=== PATIENT | female | born 1960 | race Caucasian/White ===

== ENCOUNTER 2019-12-13 07:41 | Outpatient (REF) | payer BC, SELFPAY ==
[2019-12-13 08:17] LABS: MANUAL DIFF FLAG NO
[2019-12-13 08:19] LABS: Basophils Percent Auto 0.2 % (0-2); Eosinophils Absolute Auto 0.1 X10*3/uL (0.0-0.4); Hemoglobin 13.3 g/dl (12.0-16.0); Imm Gran Abs Auto 0.03 X10*3/uL (0.00-0.03); Imm Gran Pct Auto 0.4 % (0.0-0.4); Lymphocytes Absolute Auto 0.9 X10*3/uL (1.2-4.9); Lymphocytes Percent Auto 10.5 % (20-40); Mean Corpuscular HGB Conc 33.3 g/dl (31.0-35.0); Mean Corpuscular Hemoglobin 32.5 pg (27.0-33.0); Mean Corpuscular Volume 97.8 fL (80-98); Mean Platelet Volume 9.7 fL (9.4-12.3); Monocytes Absolute Auto 0.7 X10*3/uL (0.1-1.2); Monocytes Percent Auto 8.2 % (2-11); Neutrophils Absolute Auto 6.5 X10*3/uL (2.0-8.3); Neutrophils Percent Auto 79.7 % (45-73); Platelet Count 314 X10*3/uL (160-400); Red Blood Count 4.09 X10*6/uL (4.20-5.50); Red Cell Distribution Width 13.1 % (11.0-16.0); White Blood Count 8.1 X10*3/uL (4.8-10.8)
[2019-12-13 09:00] LABS: Alanine Aminotransferase 21 U/L (0-31); Albumin Level 4.3 g/dL (3.5-5.0); Alkaline Phosphatase 68 U/L (39-117); Anion Gap 15 (12-20); Aspartate Amino Transferase 18 U/L (5-31); Bilirubin Total < 0.2 mg/dL (0.0-1.0); Blood Urea Nitrogen 30 mg/dL (9-16); C Reactive Protein 0.19 mg/dL (< or = 0.50); Calcium 8.9 mg/dL (8.4-10.2); Carbon Dioxide 19 mmol/L (22-29); Chloride 109 mmol/L (96-108); Estimated Glomerular Filt Rate 35; Glucose Fasting 222 mg/dL (60-99); Potassium 5.4 mmol/l (3.3-5.1); Sodium 138 mmol/L (135-145); Total Protein 6.4 g/dL (6.5-8.0)
[2019-12-13 09:09] LABS: Erythrocyte Sedimentation Rate 5 MM/HR (0-20)
== END 2019-12-13 07:42 | disposition home or self-care (01) ==
LOC: HO.LABR 07:41
PROVIDERS: Visit Provider Internal Medicine Rheumatology
DX: Z79.899 Other long term (current) drug therapy (principal)
CPT/HCPCS: 36415; 80053; 85025; 85652; 86140

== ENCOUNTER 2019-12-17 08:48 | Outpatient (REF) | payer BC, SELFPAY ==
[2019-12-17 09:09] LABS: COVID-19 Test Negative (Negative)
== END 2019-12-17 08:49 | disposition home or self-care (01) ==
LOC: HO.LAB 08:48
PROVIDERS: Visit Provider Internal Medicine
DX: Z20.828 Contact with and (suspected) exposure to other viral communicable diseases (principal)
CPT/HCPCS: 87635; C9803

== ENCOUNTER 2020-01-31 14:27 | Outpatient (REF) | payer BC, SELFPAY ==
--- NOTE | 2020-01-31 | US_ITS ---
EXAMINATION: US RETROPERITONEAL COMPLETE (RENAL) CLINICAL INFORMATION: Hematuria. Chronic kidney disease. COMPARISON: CT abdomen and pelvis 05/18/2018. TECHNIQUE: Real-time imaging of the kidneys and bladder. FINDINGS: RIGHT KIDNEY: 9.6 x 3.8 x 4.3 cm (SAG x AP x TRV). The kidney is normal in size, contour, and echogenicity. Renal cortical thickness is normal. No calculi or focal parenchymal lesions. No hydronephrosis. LEFT KIDNEY: 9.5 x 4.2 x 4.8 cm (SAG x AP x TRV). The kidney is normal in size, contour, and echogenicity. Renal cortical thickness is normal. No focal parenchymal lesions or hydronephrosis. There is an echogenic stone upper pole medially measuring 0.6 x 0.5 x 0.5 cm. BLADDER: Partially distended. Bilateral ureteral jets are demonstrated. Prevoid bladder volume is 169 mL. Postvoid bladder volume is 17 mL. US/US retroperitoneal comp IMPRESSION: Small echogenic stone medially in upper pole measuring 0.6 x 0.5 x 0.5 cm but no caliectasis or hydronephrosis. Unremarkable right kidney. Normal bilateral ureteral jets with a small postvoid bladder volume of 17 mL.
== END 2020-01-31 14:28 | disposition home or self-care (01) ==
LOC: HO.US 14:27
PROVIDERS: Visit Provider Internal Medicine Nephrology
DX: N18.32 Chronic kidney disease, stage 3b (principal); R31.9 Hematuria, unspecified
CPT/HCPCS: 76770

== ENCOUNTER 2020-02-03 09:03 | Outpatient (REF) | payer BC, OTHER, SELFPAY ==
[2020-02-03 09:44] LABS: COVID-19 Test Negative (Negative)
== END 2020-02-03 09:04 | disposition home or self-care (01) ==
LOC: HO.EMPCOV 09:03
PROVIDERS: Visit Provider Internal Medicine
DX: Z20.828 Contact with and (suspected) exposure to other viral communicable diseases (principal)
CPT/HCPCS: 87635; C9803

== ENCOUNTER 2020-04-05 07:56 | Outpatient (REF) | payer BC, SELFPAY ==
[2020-04-05 12:58] LABS: MANUAL DIFF FLAG NO
[2020-04-05 13:02] LABS: Basophils Percent Auto 0.3 % (0-2); Eosinophils Absolute Auto 0.1 X10*3/uL (0.0-0.4); Eosinophils Percent Auto 1.5 % (0-4); Hematocrit 40.1 % (37-47); Hemoglobin 13.5 g/dl (12.0-16.0); Imm Gran Abs Auto 0.02 X10*3/uL (0.00-0.03); Imm Gran Pct Auto 0.3 % (0.0-0.4); Lymphocytes Absolute Auto 0.9 X10*3/uL (1.2-4.9); Lymphocytes Percent Auto 13.6 % (20-40); Mean Corpuscular HGB Conc 33.7 g/dl (31.0-35.0); Mean Corpuscular Hemoglobin 31.5 pg (27.0-33.0); Mean Corpuscular Volume 93.7 fL (80-98); Mean Platelet Volume 10.4 fL (9.4-12.3); Monocytes Absolute Auto 0.9 X10*3/uL (0.1-1.2); Neutrophils Absolute Auto 4.8 X10*3/uL (2.0-8.3); Neutrophils Percent Auto 71.3 % (45-73); Platelet Count 325 X10*3/uL (160-400); Red Blood Count 4.28 X10*6/uL (4.20-5.50); Red Cell Distribution Width 13.2 % (11.0-16.0); White Blood Count 6.8 X10*3/uL (4.8-10.8)
[2020-04-05 13:39] LABS: Anion Gap 15 (12-20); Blood Urea Nitrogen 18 mg/dL (9-16); Calcium 9.8 mg/dL (8.4-10.2); Carbon Dioxide 24 mmol/L (22-29); Chloride 106 mmol/L (96-108); Estimated Glomerular Filt Rate 52; Glucose Random 105 mg/dL (60-115); Magnesium 1.7 mg/dL (1.6-2.6); Potassium 4.4 mmol/L (3.3-5.1); Sodium 141 mmol/L (135-145)
[2020-04-05 13:41] LABS: Alanine Aminotransferase 26 U/L (0-31); Albumin Level 4.7 g/dL (3.5-5.0); Aspartate Amino Transferase 20 U/L (5-31); C Reactive Protein 0.42 mg/dL (< or = 0.50); Estimated Glomerular Filt Rate 52
[2020-04-05 13:48] LABS: Erythrocyte Sedimentation Rate 7 MM/HR (0-20)
[2020-04-07 12:07] LABS: PTHI 40 pg/mL (14-64)
== END 2020-04-05 07:57 | disposition home or self-care (01) ==
LOC: HO.LAB 07:56
PROVIDERS: Referring Provider Internal Medicine Nephrology; Visit Provider Internal Medicine Rheumatology
DX: N18.30 Chronic kidney disease, stage 3 unspecified (principal); E83.9 Disorder of mineral metabolism, unspecified; M89.9 Disorder of bone, unspecified; Z79.899 Other long term (current) drug therapy
CPT/HCPCS: 36415; 80048; 82040; 82565; 83735; 83970; 84100; 84450; 84460; 85025; 85652; 86140

== ENCOUNTER 2020-04-07 08:36 | Outpatient (REF) | payer OTHER, SELFPAY ==
[2020-04-07 08:52] LABS: COVID-19 Test Negative (Negative)
== END 2020-04-07 08:37 | disposition home or self-care (01) ==
LOC: HO.EMPCOV 08:36
PROVIDERS: Visit Provider Internal Medicine
DX: Z20.822 Contact with and (suspected) exposure to COVID-19 (principal)
CPT/HCPCS: 36415; 87635; C9803

== ENCOUNTER 2020-05-09 07:51 | Outpatient (REF) | payer BC, SELFPAY ==
--- NOTE | ~2020-05-09 | XR_ITS ---
EXAMINATION: XR SHOULDER, RIGHT CLINICAL INFORMATION: Pain COMPARISON: None TECHNIQUE: AP external rotation, Grashey, scapular Y, and axillary views of the right shoulder. FINDINGS: The bones and soft tissues are normal. No fracture. Glenohumeral and acromioclavicular alignment is anatomic with normal joint space. No abnormal soft tissue calcifications. XR/XR shoulder RT min 2V IMPRESSION: Normal right shoulder.
[2020-05-09 13:14] LABS: Anion Gap 18 (12-20); Blood Urea Nitrogen 24 mg/dL (9-16); Calcium 9.6 mg/dL (8.4-10.2); Carbon Dioxide 21 mmol/L (22-29); Chloride 106 mmol/L (96-108); Estimated Glomerular Filt Rate 49; Glucose Random 92 mg/dL (60-115); Potassium 4.9 mmol/L (3.3-5.1); Sodium 140 mmol/L (135-145)
== END 2020-05-09 07:52 | disposition home or self-care (01) ==
LOC: HO.LAB 07:51
PROVIDERS: Visit Provider Internal Medicine
DX: I10 Essential (primary) hypertension (principal); M25.511 Pain in right shoulder
CPT/HCPCS: 36415; 73030; 80048

== ENCOUNTER 2020-07-28 07:46 | Outpatient (REF) | payer BC, SELFPAY ==
[2020-07-28 09:14] LABS: MANUAL DIFF FLAG NO
[2020-07-28 09:19] LABS: Basophils Percent Auto 0.3 % (0-2); Eosinophils Absolute Auto 0.1 X10*3/uL (0.0-0.4); Hematocrit 42.4 % (37-47); Hemoglobin 13.9 g/dl (12.0-16.0); Imm Gran Abs Auto 0.01 X10*3/uL (0.00-0.03); Imm Gran Pct Auto 0.2 % (0.0-0.4); Lymphocytes Absolute Auto 0.8 X10*3/uL (1.2-4.9); Lymphocytes Percent Auto 13.6 % (20-40); Mean Corpuscular HGB Conc 32.8 g/dl (31.0-35.0); Mean Corpuscular Hemoglobin 30.8 pg (27.0-33.0); Mean Corpuscular Volume 93.8 fL (80-98); Mean Platelet Volume 10.3 fL (9.4-12.3); Monocytes Absolute Auto 0.6 X10*3/uL (0.1-1.2); Monocytes Percent Auto 10.5 % (2-11); Neutrophils Absolute Auto 4.3 X10*3/uL (2.0-8.3); Neutrophils Percent Auto 73.4 % (45-73); Platelet Count 287 X10*3/uL (160-400); Red Blood Count 4.52 X10*6/uL (4.20-5.50); Red Cell Distribution Width 14.2 % (11.0-16.0); White Blood Count 5.9 X10*3/uL (4.8-10.8)
[2020-07-28 09:29] LABS: Estimated Average Glucose 137 mg/dL; Hemoglobin A1c % 6.4 %
[2020-07-28 09:39] LABS: Alanine Aminotransferase 21 U/L (0-31); Aspartate Amino Transferase 18 U/L (5-31); Estimated Glomerular Filt Rate 48
[2020-07-28 09:45] LABS: Alanine Aminotransferase 22 U/L (0-31); Albumin Level 4.3 g/dL (3.5-5.0); Alkaline Phosphatase 75 U/L (39-117); Anion Gap 15 (12-20); Aspartate Amino Transferase 18 U/L (5-31); Bilirubin Total 0.4 mg/dL (0.0-1.0); Blood Urea Nitrogen 27 mg/dL (9-16); Calcium 8.9 mg/dL (8.4-10.2); Carbon Dioxide 20 mmol/L (22-29); Chloride 110 mmol/L (96-108); Cholesterol 162 mg/dL; Estimated Glomerular Filt Rate 47; Glucose Random 158 mg/dL (60-115); HDL Cholesterol 91 mg/dL; LDL Cholesterol Calculated 60 mg/dl; Potassium 5.2 mmol/L (3.3-5.1); Sodium 140 mmol/L (135-145); Total Protein 6.5 g/dL (6.5-8.0); Triglycerides 56 mg/dL; Uric Acid 8.1 mg/dL (2.4-5.7)
[2020-07-28 09:52] LABS: Creatinine Urine 88.07 mg/dL; Microalbum/Creatinine Ratio Ur 37.4 ug/mg cr
[2020-07-28 10:06] LABS: Erythrocyte Sedimentation Rate 6 MM/HR (0-20)
[2020-07-28 10:08] LABS: Free T4 (Free Thyroxine) 1.25 ng/dL (0.71-1.85); Thyroid Stimulating Hormone 0.03 uIU/mL (0.32-4.0); Vitamin D 25-OH Total 32.2 ng/mL (>30)
[2020-07-28 10:15] LABS: Vitamin B12 184 pg/mL (200-900)
[2020-08-02 04:42] LABS: Protein C Activity 126 % (70-180)
== END 2020-07-28 07:47 | disposition home or self-care (01) ==
LOC: HO.LAB 07:46
PROVIDERS: Absent Provider Internal Medicine; PCP Internal Medicine; Visit Provider Internal Medicine Rheumatology
DX: M05.79 Rheumatoid arthritis with rheumatoid factor of multiple sites without organ or systems involvement (principal); E11.65 Type 2 diabetes mellitus with hyperglycemia; E89.0 Postprocedural hypothyroidism; E78.00 Pure hypercholesterolemia, unspecified; I10 Essential (primary) hypertension; Z79.899 Other long term (current) drug therapy
CPT/HCPCS: 36415; 80053; 80061; 82043; 82306; 82565; 82607; 82746; 83036; 84439; 84443; 84450; 84460; 84550; 85025; 85302; 85303; 85652

== ENCOUNTER 2020-08-01 07:56 | Outpatient (REF) | payer BC, SELFPAY ==
--- NOTE | ~2020-08-01 | MM_ITS ---
EXAMINATION: MM SCREENING DIGITAL BREAST TOMOSYNTHESIS, BILATERAL CLINICAL INFORMATION: Screening. Asymptomatic. The lifetime risk of breast cancer based on the Tyrer-Cuzick Model is 10%. COMPARISON: Mammography: 12/07/2018, 11/27/2017, 05/15/2016 TECHNIQUE: Digital breast tomosynthesis is performed in both the craniocaudal and mediolateral oblique views along with computer-aided detection (CAD). Synthesized 2D images are generated from the tomosynthesis. Additional left CC view is provided. FINDINGS: There are scattered areas of fibroglandular density (ACR BI-RADS breast composition Category b). Parenchymal pattern is similar to prior studies with no developing density or interval mass or architectural abnormality. There are again 2 small nodules mid upper outer left breast similar to prior exam. Intramammary node again present posterior 3:00 left breast. There are scattered round and ductal secretory calcifications, bilaterally and symmetrically increased. The axilla and skin contours are unremarkable. MM/MM tomosynthesis screening BI IMPRESSION: No significant changes from prior studies. ASSESSMENT: BI-RADS 2: Benign RECOMMENDATION: Routine annual mammography screening. This patient's information was entered into a reminder system with a target due date for their next mammogram.
== END 2020-08-01 07:57 | disposition home or self-care (01) ==
LOC: HO.MAMMO 07:56
PROVIDERS: PCP Internal Medicine; Visit Provider Internal Medicine
DX: Z12.31 Encounter for screening mammogram for malignant neoplasm of breast (principal)
CPT/HCPCS: 77063; 77067

== ENCOUNTER 2020-12-01 06:46 | Outpatient (REF) | payer BC, SELFPAY ==
[2020-12-01 07:04] LABS: MANUAL DIFF FLAG NO
[2020-12-01 07:33] LABS: Basophils Percent Auto 0.3 % (0-2); Eosinophils Absolute Auto 0.1 X10*3/uL (0.0-0.4); Eosinophils Percent Auto 1.1 % (0-4); Hematocrit 42.8 % (37-47); Hemoglobin 14.3 g/dl (12.0-16.0); Imm Gran Abs Auto 0.02 X10*3/uL (0.00-0.03); Imm Gran Pct Auto 0.3 % (0.0-0.4); Lymphocytes Absolute Auto 0.9 X10*3/uL (1.2-4.9); Lymphocytes Percent Auto 13.9 % (20-40); Mean Corpuscular HGB Conc 33.4 g/dl (31.0-35.0); Mean Corpuscular Volume 92.6 fL (80-98); Mean Platelet Volume 9.9 fL (9.4-12.3); Monocytes Absolute Auto 0.6 X10*3/uL (0.1-1.2); Monocytes Percent Auto 8.6 % (2-11); Neutrophils Absolute Auto 4.9 X10*3/uL (2.0-8.3); Neutrophils Percent Auto 75.8 % (45-73); Platelet Count 270 X10*3/uL (160-400); Red Blood Count 4.62 X10*6/uL (4.20-5.50); Red Cell Distribution Width 13.6 % (11.0-16.0); White Blood Count 6.4 X10*3/uL (4.8-10.8)
[2020-12-01 07:44] LABS: Alanine Aminotransferase 18 U/L (0-31); Albumin Level 4.4 g/dL (3.5-5.0); Alkaline Phosphatase 73 U/L (39-117); Anion Gap 13 (12-20); Aspartate Amino Transferase 17 U/L (5-31); Bilirubin Total 0.5 mg/dL (0.0-1.0); Blood Urea Nitrogen 21 mg/dL (9-16); C Reactive Protein 0.34 mg/dL (< or = 0.50); Calcium 11.2 mg/dL (8.4-10.2); Carbon Dioxide 27 mmol/L (22-29); Chloride 106 mmol/L (96-108); Estimated Glomerular Filt Rate 39; Glucose Random 157 mg/dL (60-115); Sodium 141 mmol/L (135-145); Total Protein 6.7 g/dL (6.5-8.0)
[2020-12-01 07:45] LABS: Estimated Average Glucose 151 mg/dL; Hemoglobin A1c % 6.9 %
[2020-12-01 08:01] LABS: Free T4 (Free Thyroxine) 1.46 ng/dL (0.71-1.85)
[2020-12-01 08:02] LABS: Thyroid Stimulating Hormone 0.15 uIU/mL (0.32-4.0)
[2020-12-01 08:18] LABS: Folate 18.2 ng/mL (> or = 4.0); Vitamin B12 962 pg/mL (200-900)
[2020-12-01 08:22] LABS: Erythrocyte Sedimentation Rate 5 MM/HR (0-20)
[2020-12-01 12:57] LABS: Creatinine Urine 23.55 mg/dL
== END 2020-12-01 06:47 | disposition home or self-care (01) ==
LOC: HO.LAB 06:46
PROVIDERS: Absent Provider Internal Medicine Rheumatology; PCP Internal Medicine; Visit Provider Internal Medicine
DX: E11.65 Type 2 diabetes mellitus with hyperglycemia (principal); N18.31 Chronic kidney disease, stage 3a; E11.22 Type 2 diabetes mellitus with diabetic chronic kidney disease; M05.79 Rheumatoid arthritis with rheumatoid factor of multiple sites without organ or systems involvement; Z79.899 Other long term (current) drug therapy
CPT/HCPCS: 36415; 80053; 82607; 82746; 83036; 84439; 84443; 85025; 85652; 86140

== ENCOUNTER → 2021-02-15 10:20 | Outpatient (BNVA) | payer BC, SELFPAY | PROVIDERS: PCP Internal Medicine; Visit Provider Dietitian, Registered | DX: E11.22 Type 2 diabetes mellitus with diabetic chronic kidney disease (principal); I12.9 Hypertensive chronic kidney disease with stage 1 through stage 4 chronic kidney disease, or unspecified chronic kidney disease; N18.30 Chronic kidney disease, stage 3 unspecified | CPT/HCPCS: 97802 ==

== ENCOUNTER 2021-03-08 07:30 | Outpatient (REF) | payer BC, SELFPAY ==
[2021-03-08 08:00] LABS: MANUAL DIFF FLAG NO
[2021-03-08 08:07] LABS: Basophils Percent Auto 0.3 % (0-2); Eosinophils Absolute Auto 0.1 X10*3/uL (0.0-0.4); Eosinophils Percent Auto 1.5 % (0-4); Hematocrit 41.2 % (37.0-47.0); Hemoglobin 13.9 g/dl (12.0-16.0); Imm Gran Abs Auto 0.01 X10*3/uL (0.00-0.03); Imm Gran Pct Auto 0.2 % (0.0-0.4); Lymphocytes Percent Auto 15.2 % (20-40); Mean Corpuscular HGB Conc 33.7 g/dl (31.0-35.0); Mean Corpuscular Volume 94.7 fL (80.0-98.0); Mean Platelet Volume 9.7 fL (9.4-12.3); Monocytes Absolute Auto 0.6 X10*3/uL (0.1-1.2); Monocytes Percent Auto 8.8 % (2-11); Neutrophils Absolute Auto 4.9 x10*3/uL (2.0-8.3); Platelet Count 279 X10*3/uL (160-400); Red Blood Count 4.35 X10*6/uL (4.20-5.50); Red Cell Distribution Width 13.8 % (11.0-16.0); White Blood Count 6.6 X10*3/uL (4.8-10.8)
[2021-03-08 08:27] LABS: Alkaline Phosphatase 81 U/L (39-117); Calcium 9.8 mg/dL (8.4-10.2); Phosphorus 4.3 mg/dL (2.7-4.5)
[2021-03-08 08:30] LABS: Alanine Aminotransferase 27 U/L (0-31); Albumin Level 4.3 g/dL (3.5-5.0); Aspartate Amino Transferase 21 U/L (5-31); C Reactive Protein 0.23 mg/dL (< or = 0.50); Estimated Glomerular Filt Rate 37
[2021-03-08 08:44] LABS: Erythrocyte Sedimentation Rate 3 MM/HR (0-20)
[2021-03-08 08:51] LABS: Thyroid Stimulating Hormone 5.77 uIU/mL (0.32-4.0)
[2021-03-09 14:07] LABS: Calcium (PTHI) 9.7 mg/dL (8.6-10.4); PTHI 31 pg/mL (14-64)
== END 2021-03-08 07:31 | disposition home or self-care (01) ==
LOC: HO.LAB 07:30
PROVIDERS: Absent Provider Internal Medicine Rheumatology; PCP Internal Medicine; Visit Provider Internal Medicine Endocrinology, Diabetes & Metabolism
DX: N18.31 Chronic kidney disease, stage 3a (principal); M05.79 Rheumatoid arthritis with rheumatoid factor of multiple sites without organ or systems involvement; E83.52 Hypercalcemia; E89.0 Postprocedural hypothyroidism; Z79.899 Other long term (current) drug therapy
CPT/HCPCS: 36415; 82040; 82306; 82310; 82565; 83970; 84075; 84100; 84443; 84450; 84460; 85025; 85652; 86140

== ENCOUNTER → 2021-04-12 09:28 | Outpatient (BNVA) | payer BC, SELFPAY | PROVIDERS: PCP Internal Medicine; Visit Provider Dietitian, Registered | DX: E11.65 Type 2 diabetes mellitus with hyperglycemia (principal) | CPT/HCPCS: 97803 ==

== ENCOUNTER 2021-05-04 08:08 | Outpatient (REF) | payer BC, SELFPAY ==
--- NOTE | ~2021-05-04 | MM_ITS ---
EXAMINATION: BONE DENSITOMETRY CLINICAL INDICATION: Encounter for screening for osteoporosis. COMPARISON: Baseline BD dated 02/11/2019. TECHNIQUE: Using a [employer] DXA System (software version: 13.1) manufactured by [employer], dual-energy x-ray absorptiometry was performed of the lumbar spine and left hip. The images are of good technical quality. Summary results are attached. FINDINGS: AP SPINE L1-L2 (excluding L3 and L4): The data of L1-L4 has been changed to exclude the L3 and L4 vertebral bodies, because degenerative sclerosis at these levels may cause overestimation of lumbar spine density. Current: BMD 1.157 g/cm2, Z-score 0.6, T-score -0.1, normal, 0.6% increase from baseline (<5% change is not significant). Baseline: BMD 1.150 g/cm2. LEFT FEMUR, NECK: Current: BMD 0.857 g/cm2, Z-score -0.4, T-score -1.3, osteopenia. Baseline: BMD 0.865 g/cm2. LEFT FEMUR, TOTAL: Current: BMD 0.928 g/cm2, Z-score -0.1, T-score -0.6, normal, 0.3% increase from baseline (<5% change is not significant). Baseline: BMD 0.925 g/cm2. IDENTIFIED RISK FACTORS: History of adult fracture. Rheumatoid arthritis. Renal disease. Parental hip fracture. Menopause. HISTORY OF FRACTURE: Wrist. MEDICATIONS: Calcium supplement and/or multivitamin. Vitamin D. MM/XR DEXA axial skeleton IMPRESSION: 1. DIAGNOSIS: Osteopenia based on the lowest T-score value of -1.3 in the femoral neck applying World Health Organization criteria. 2. 10-YEAR FRACTURE RISK PREDICTION, FRAX: Major osteoporotic fracture (clinical spine, forearm, hip or shoulder) 30.4%. Hip fracture 1.5%. 3. Treatment Recommendations: NOF guidelines recommend consideration for treatment in postmenopausal women and men age 50 and older presenting with the following: -A hip or vertebral (clinical or morphometric) fracture. -T-score less than or equal to -2.5 at the femoral neck or spine after appropriate evaluation to exclude secondary causes. -Low bone mass at the hip or spine and a 10-year fracture probability by FRAX of greater than or equal to 3% for hip fracture or greater than or equal to 20% for major osteoporotic fracture based on the [place] adapted WHO algorithm. 4. Other Recommendations: All treatment decisions require clinical judgment and consideration of individual patient factors, including patient preferences, comorbidities, previous drug use, risk factors not captured in the FRAX model (e.g. frailty, falls, vitamin D deficiency, increased bone turnover, interval significant decline in bone density) and possible under or overestimation of fracture risk by FRAX. Additional medical evaluation for secondary cause of low bone mineral density may be appropriate. FUTURE SCAN RECOMMENDATION: People with diagnosed cases of osteoporosis or at high risk for fracture should have regular bone mineral density tests. For patients eligible for Medicare, routine testing is allowed once every 2 years. The testing frequency can be increased to one year for patients who have rapidly progressing disease, those who are receiving or discontinuing medical therapy to restore bone mass, or have additional risk factors.
== END 2021-05-04 08:09 | disposition home or self-care (01) ==
LOC: HO.MAMMO 08:08
PROVIDERS: PCP Internal Medicine; Visit Provider Internal Medicine
DX: Z13.820 Encounter for screening for osteoporosis (principal); M85.80 Other specified disorders of bone density and structure, unspecified site; Z78.0 Asymptomatic menopausal state; M06.9 Rheumatoid arthritis, unspecified; N28.9 Disorder of kidney and ureter, unspecified
CPT/HCPCS: 77080

== ENCOUNTER 2021-06-15 07:35 | Outpatient (REF) | payer BC, SELFPAY ==
[2021-06-15 07:51] LABS: MANUAL DIFF FLAG NO
[2021-06-15 08:19] LABS: Basophils Percent Auto 0.3 % (0-2); Eosinophils Absolute Auto 0.1 X10*3/uL (0.0-0.4); Hematocrit 39.8 % (37.0-47.0); Hemoglobin 13.2 g/dl (12.0-16.0); Imm Gran Abs Auto 0.03 X10*3/uL (0.00-0.03); Imm Gran Pct Auto 0.5 % (0.0-0.4); Lymphocytes Absolute Auto 0.8 X10*3/uL (1.2-4.9); Lymphocytes Percent Auto 12.2 % (20-40); Mean Corpuscular HGB Conc 33.2 g/dl (31.0-35.0); Mean Corpuscular Hemoglobin 32.1 pg (27.0-33.0); Mean Corpuscular Volume 96.8 fL (80.0-98.0); Mean Platelet Volume 9.9 fL (9.4-12.3); Monocytes Absolute Auto 0.5 X10*3/uL (0.1-1.2); Monocytes Percent Auto 8.1 % (2-11); Neutrophils Absolute Auto 5.1 x10*3/uL (2.0-8.3); Neutrophils Percent Auto 76.9 % (45-73); Platelet Count 315 X10*3/uL (160-400); Red Blood Count 4.11 X10*6/uL (4.20-5.50); Red Cell Distribution Width 13.9 % (11.0-16.0); White Blood Count 6.6 X10*3/uL (4.8-10.8)
[2021-06-15 08:36] LABS: Alanine Aminotransferase 26 U/L (0-31); Albumin Level 4.2 g/dL (3.5-5.0); Aspartate Amino Transferase 18 U/L (5-31); C Reactive Protein 0.34 mg/dL (< or = 0.50); Estimated Glomerular Filt Rate 36
[2021-06-15 08:59] LABS: Thyroid Stimulating Hormone 0.24 uIU/mL (0.32-4.0)
[2021-06-15 09:06] LABS: Erythrocyte Sedimentation Rate 6 MM/HR (0-20)
[2021-06-18 20:52] LABS: Thyroglobulin 0.6 ng/mL; Thyroglobulin Antibodies <1 IU/mL (< or = 1)
== END 2021-06-15 07:36 | disposition home or self-care (01) ==
LOC: HO.LAB 07:35
PROVIDERS: Absent Provider Internal Medicine Rheumatology; PCP Internal Medicine; Visit Provider Internal Medicine Endocrinology, Diabetes & Metabolism
DX: M05.79 Rheumatoid arthritis with rheumatoid factor of multiple sites without organ or systems involvement (principal); Z79.899 Other long term (current) drug therapy; C73 Malignant neoplasm of thyroid gland; E89.0 Postprocedural hypothyroidism
CPT/HCPCS: 36415; 82040; 82565; 84432; 84439; 84443; 84450; 84460; 85025; 85652; 86140; 86800

== ENCOUNTER 2021-07-16 07:25 | Outpatient (REF) | payer OTHER, SELFPAY ==
[2021-07-16 12:39] LABS: Albumin Level 4.5 g/dL (3.5-5.0); Blood Urea Nitrogen 24 mg/dL (9-16); Calcium 9.4 mg/dL (8.4-10.2); Estimated Glomerular Filt Rate 41; Phosphorus 3.6 mg/dL (2.7-4.5)
[2021-07-17 14:47] LABS: Calcium (PTHI) 9.3 mg/dL (8.6-10.4); PTHI 29 pg/mL (16-77)
[2021-07-17 17:17] LABS: Calcium, Ionized 4.9 mg/dL (4.8-5.6)
== END 2021-07-16 07:26 | disposition home or self-care (01) ==
LOC: HO.LAB 07:25
PROVIDERS: PCP Internal Medicine; Visit Provider Surgery
DX: E20.9 Hypoparathyroidism, unspecified (principal)
CPT/HCPCS: 36415; 82040; 82306; 82310; 82330; 82565; 83970; 84100; 84520

== ENCOUNTER 2021-07-19 07:57 | Outpatient (REF) | payer OTHER, SELFPAY ==
[2021-07-19 08:17] LABS: MANUAL DIFF FLAG NO
[2021-07-19 08:44] LABS: Basophils Percent Auto 0.2 % (0-2); Eosinophils Absolute Auto 0.1 X10*3/uL (0.0-0.4); Eosinophils Percent Auto 1.4 % (0-4); Hemoglobin 12.9 g/dl (12.0-16.0); Imm Gran Abs Auto 0.02 X10*3/uL (0.00-0.03); Imm Gran Pct Auto 0.3 % (0.0-0.4); Lymphocytes Absolute Auto 0.6 X10*3/uL (1.2-4.9); Lymphocytes Percent Auto 10.6 % (20-40); Mean Corpuscular HGB Conc 32.3 g/dl (31.0-35.0); Mean Corpuscular Hemoglobin 31.6 pg (27.0-33.0); Monocytes Absolute Auto 0.7 X10*3/uL (0.1-1.2); Monocytes Percent Auto 11.9 % (2-11); Neutrophils Absolute Auto 4.3 x10*3/uL (2.0-8.3); Neutrophils Percent Auto 75.6 % (45-73); Platelet Count 287 X10*3/uL (160-400); Red Blood Count 4.08 X10*6/uL (4.20-5.50); Red Cell Distribution Width 13.4 % (11.0-16.0); White Blood Count 5.7 X10*3/uL (4.8-10.8)
[2021-07-19 09:16] LABS: Alanine Aminotransferase 24 U/L (0-31); Albumin Level 4.1 g/dL (3.5-5.0); Alkaline Phosphatase 81 U/L (39-117); Anion Gap 13 (12-20); Aspartate Amino Transferase 19 U/L (5-31); Bilirubin Total 0.4 mg/dL (0.0-1.0); Blood Urea Nitrogen 25 mg/dL (9-16); Calcium 8.5 mg/dL (8.4-10.2); Carbon Dioxide 20 mmol/L (22-29); Chloride 111 mmol/L (96-108); Cholesterol 160 mg/dL; Estimated Glomerular Filt Rate 38; Glucose Random 181 mg/dL (60-115); HDL Cholesterol 75 mg/dL; LDL Cholesterol Calculated 68 mg/dl; Potassium 5.2 mmol/L (3.3-5.1); Sodium 139 mmol/L (135-145); Total Protein 6.4 g/dL (6.5-8.0); Triglycerides 89 mg/dL
[2021-07-19 09:27] LABS: Free T4 (Free Thyroxine) 1.18 ng/dL (0.71-1.85); Thyroid Stimulating Hormone 0.03 uIU/mL (0.32-4.0)
[2021-07-19 09:28] LABS: Erythrocyte Sedimentation Rate 6 MM/HR (0-20)
[2021-07-19 09:39] LABS: Folate > 20.0 ng/mL (> or = 4.0); Vitamin B12 1123 pg/mL (200-900)
== END 2021-07-19 07:58 | disposition home or self-care (01) ==
LOC: HO.LAB 07:57
PROVIDERS: Visit Provider Internal Medicine
DX: M05.79 Rheumatoid arthritis with rheumatoid factor of multiple sites without organ or systems involvement (principal); E11.65 Type 2 diabetes mellitus with hyperglycemia; E78.00 Pure hypercholesterolemia, unspecified
CPT/HCPCS: 36415; 80053; 80061; 82607; 82746; 84439; 84443; 85025; 85652

== ENCOUNTER 2021-08-30 07:29 | Outpatient (REF) | payer OTHER, SELFPAY ==
--- NOTE | ~2021-08-30 | MM_ITS ---
EXAMINATION: MM SCREENING DIGITAL BREAST TOMOSYNTHESIS, BILATERAL CLINICAL INFORMATION: Screening. Asymptomatic. The lifetime risk of breast cancer based on the Tyrer-Cuzick Model is 8.0%. COMPARISON: Mammography: August 01, 2020 and studies dating back to March 22, 2013 TECHNIQUE: Digital breast tomosynthesis is performed in both the craniocaudal and mediolateral oblique views along with computer-aided detection (CAD). Synthesized 2D images are generated from the tomosynthesis. FINDINGS: There are scattered areas of fibroglandular density (ACR BI-RADS breast composition Category b). Within the lateral retroareolar region of the right breast there is a circumscribed lesion measuring 6 mm in size. About the mid lateral aspect of the right breast there is a lobular density measuring approximately 4 mm in diameter which is enlarging. Spot compression views and possible ultrasound recommended. There is a stable parenchymal pattern of the left breast. MM/MM tomosynthesis screening BI IMPRESSION: Right breast densities for further evaluation as described. ASSESSMENT: BI-RADS 0: Incomplete - Need Additional Imaging Evaluation RECOMMENDATION: 1. Additional views of the right breast 2. Targeted ultrasound if warranted after review of the additional views. 3. Radiology department staff will contact the patient for additional imaging. This patient's information was entered into a reminder system with a target due date for their next mammogram.
== END 2021-08-30 07:30 | disposition home or self-care (01) ==
LOC: HO.MAMMO 07:29
PROVIDERS: PCP Internal Medicine; Visit Provider Internal Medicine
DX: Z12.31 Encounter for screening mammogram for malignant neoplasm of breast (principal)
CPT/HCPCS: 77063; 77067

== ENCOUNTER 2021-09-05 12:54 | Outpatient (REF) | payer OTHER, SELFPAY ==
--- NOTE | ~2021-09-05 | MM_ITS ---
EXAMINATION: MM DIAGNOSTIC DIGITAL BREAST TOMOSYNTHESIS, RIGHT US BREAST, TARGETED, RIGHT CLINICAL INFORMATION: 2 densities about the lateral aspect of the right breast. COMPARISON: Mammography: 08/30/2021 and studies dating back to 03/22/2013. TECHNIQUE: Digital breast tomosynthesis is performed. 2D images are generated from the tomosynthesis. The following views are obtained: Spot compression views in craniocaudal and 90 degree mediolateral views of the right breast. Targeted right breast ultrasound. FINDINGS: There are scattered areas of fibroglandular density (ACR BI-RADS breast composition Category b). MAMMOGRAM: Additional views demonstrate persistence of the circumscribed densities about the lateral aspect of the right breast. ULTRASOUND: Targeted right breast ultrasound demonstrated at the 9 o'clock position approximately 3 cm from the nipple an anechoic/hypoechoic well-circumscribed lesion with minimal distal sound enhancement and with no distal sound shadowing. The lesion is wider than it is tall. No internal vascularity is present. It measures approximately 6 x 6 x 5 mm in size. At the 10 o'clock position approximately 7 cm from the nipple there is a mildly complex cystic structure measuring approximately 4 x 2 mm in size with some increased distal sound enhancement and no distal sound shadowing. There are a few internal echoes present. No internal vascularity is seen. The lesion is wider than it is tall. Six-month follow-up right breast mammogram suggested with possible targeted ultrasound to follow. Results are discussed with the patient at time of visit. MM/MM tomosynthesis added views R IMPRESSION: Mammographic densities appear to represent cysts as described above. Recommend 6 month follow-up right breast mammography and possible ultrasound to follow. ASSESSMENT: BI-RADS 3: Probably Benign RECOMMENDATION: Diagnostic mammography in 6 months. This patient's information was entered into a reminder system with a target due date for their next mammogram.
--- NOTE | ~2021-09-05 | US_ITS ---
EXAMINATION: MM DIAGNOSTIC DIGITAL BREAST TOMOSYNTHESIS, RIGHT US BREAST TARGETED, RIGHT CLINICAL INFORMATION: 2 densities about the lateral aspect of the right breast. COMPARISON: Mammography: 08/30/2021 and studies dating back to 03/22/2013. TECHNIQUE: Digital breast tomosynthesis is performed. 2D images are generated from the tomosynthesis. The following views are obtained: Spot compression views in craniocaudal and 90 degree mediolateral views of the right breast. Targeted right breast ultrasound. FINDINGS: There are scattered areas of fibroglandular density (ACR BI-RADS breast composition Category b). Additional views demonstrate persistence of the circumscribed densities about the lateral aspect of the right breast. Targeted right breast ultrasound demonstrated at the 9 o'clock position approximately 3 cm from the nipple a anechoic/hypoechoic well-circumscribed lesion with minimal distal sound enhancement and with no distal sound shadowing. The lesion is wider than it is tall. No internal vascularity is present. It measures approximately 6 x 6 x 5 mm in size. At the 10 o'clock position approximately 7 cm from the nipple there is a mildly complex cystic structure measuring approximately 4 x 2 mm in size with some increased distal sound enhancement and no distal sound shadowing. There are a few internal echoes present. No internal vascularity is seen. The lesion is wider than it is tall. Six-month follow-up right breast mammogram suggested with possible targeted ultrasound to follow. Results are discussed with the patient at time of visit. US/US breast RT limited IMPRESSION: Mammographic densities appear to represent cysts as described above. Recommend 6 month follow-up right breast mammography and possible ultrasound to follow. ASSESSMENT: BI-RADS 3: Probably Benign RECOMMENDATION: Diagnostic mammography in 6 months. This patient's information was entered into a reminder system with a target due date for their next mammogram.
== END 2021-09-05 12:55 | disposition home or self-care (01) ==
LOC: HO.MAMMO 12:54
PROVIDERS: PCP Internal Medicine; Visit Provider Internal Medicine
DX: R92.2 Inconclusive mammogram (principal)
CPT/HCPCS: 76642; 77061; 77065

== ENCOUNTER 2021-09-06 10:51 | Outpatient (REF) | payer OTHER, SELFPAY ==
--- NOTE | ~2021-09-06 | XR_ITS ---
EXAMINATION: XR CHEST CLINICAL INFORMATION: Cough COMPARISON: None TECHNIQUE: 2 views of the chest were obtained. FINDINGS: Lungs are well-inflated and grossly clear. Trachea is midline in position. No evidence of interstitial disease, consolidation or mass. No pleural effusion or pneumothorax. Cardiac silhouette and pulmonary vessels are normal in size. The mediastinum and gaviota have normal contour. Mild spondylosis of the thoracic spine. XR/XR chest 2V IMPRESSION: No evidence of pneumonia. No acute cardiopulmonary abnormality.
== END 2021-09-06 10:52 | disposition home or self-care (01) ==
LOC: HO.XRAY 10:51
PROVIDERS: PCP Internal Medicine; Visit Provider Nurse Practitioner Family
DX: R05.9 Cough, unspecified (principal)
CPT/HCPCS: 71046

== ENCOUNTER 2021-12-05 08:04 | Outpatient (REF) | payer OTHER, SELFPAY ==
[2021-12-05 08:51] LABS: MANUAL DIFF FLAG NO
[2021-12-05 09:04] LABS: Basophils Percent Auto 0.5 % (0-2); Eosinophils Absolute Auto 0.4 X10*3/uL (0.0-0.4); Eosinophils Percent Auto 5.8 % (0-4); Hematocrit 41.4 % (37.0-47.0); Hemoglobin 14.1 g/dl (12.0-16.0); Imm Gran Abs Auto 0.02 X10*3/uL (0.00-0.03); Imm Gran Pct Auto 0.3 % (0.0-0.4); Lymphocytes Absolute Auto 1.3 X10*3/uL (1.2-4.9); Lymphocytes Percent Auto 21.2 % (20-40); Mean Corpuscular HGB Conc 34.1 g/dl (31.0-35.0); Mean Corpuscular Hemoglobin 32.6 pg (27.0-33.0); Mean Corpuscular Volume 95.6 fL (80.0-98.0); Mean Platelet Volume 9.9 fL (9.4-12.3); Monocytes Absolute Auto 0.6 X10*3/uL (0.1-1.2); Monocytes Percent Auto 10.2 % (2-11); Neutrophils Absolute Auto 3.7 x10*3/uL (2.0-8.3); Platelet Count 303 X10*3/uL (160-400); Red Blood Count 4.33 X10*6/uL (4.20-5.50); Red Cell Distribution Width 13.4 % (11.0-16.0)
[2021-12-05 09:26] LABS: Alanine Aminotransferase 20 U/L (0-31); Albumin Level 4.6 g/dL (3.5-5.0); Aspartate Amino Transferase 22 U/L (5-31); Estimated Glomerular Filt Rate 39
[2021-12-05 09:46] LABS: Erythrocyte Sedimentation Rate 8 MM/HR (0-20)
== END 2021-12-05 08:05 | disposition home or self-care (01) ==
LOC: HO.LAB 08:04
PROVIDERS: PCP Internal Medicine; Visit Provider Internal Medicine Rheumatology
DX: M06.9 Rheumatoid arthritis, unspecified (principal); Z79.899 Other long term (current) drug therapy
CPT/HCPCS: 36415; 82040; 82565; 84450; 84460; 85025; 85652; 86140

== ENCOUNTER 2021-12-19 14:44 | Outpatient (REF) | payer OTHER, SELFPAY ==
[2021-12-19 15:39] LABS: Alanine Aminotransferase 21 U/L (0-31); Albumin Level 4.3 g/dL (3.5-5.0); Alkaline Phosphatase 72 U/L (39-117); Anion Gap 17 (12-20); Aspartate Amino Transferase 20 U/L (5-31); Bilirubin Total 0.5 mg/dL (0.0-1.0); Blood Urea Nitrogen 19 mg/dL (9-16); Carbon Dioxide 21 mmol/L (22-29); Chloride 108 mmol/L (96-108); Estimated Glomerular Filt Rate 40; Glucose Random 100 mg/dL (60-115); Potassium 4.5 mmol/L (3.3-5.1); Sodium 141 mmol/L (135-145); Total Protein 6.7 g/dL (6.5-8.0)
[2021-12-19 16:07] LABS: Free T4 (Free Thyroxine) 1.23 ng/dL (0.71-1.85)
[2021-12-19 16:39] LABS: Vitamin D 25-OH Total 36.6 ng/mL (>30)
[2021-12-20 11:12] LABS: PTHI 51 pg/mL (16-77)
[2021-12-21 09:32] LABS: Thyroglobulin 0.3 ng/mL; Thyroglobulin Antibodies <1 IU/mL (< or = 1)
== END 2021-12-19 14:45 | disposition home or self-care (01) ==
LOC: HO.LAB 14:44
PROVIDERS: PCP Internal Medicine; Visit Provider Internal Medicine
DX: C73 Malignant neoplasm of thyroid gland (principal); E55.9 Vitamin D deficiency, unspecified; Z86.39 Personal history of other endocrine, nutritional and metabolic disease
CPT/HCPCS: 36415; 80053; 82306; 83970; 84100; 84432; 84439; 84443; 86800

== ENCOUNTER 2021-12-27 11:29 | Outpatient (REF) | payer OTHER, SELFPAY ==
[2022-01-02 21:41] LABS: HPV mRNA E6/E7 rflx Not Detected (Not Detected)
== END 2021-12-27 11:30 | disposition home or self-care (01) ==
LOC: HO.LNP 11:29
PROVIDERS: Visit Provider Obstetrics & Gynecology
DX: Z12.4 Encounter for screening for malignant neoplasm of cervix (principal); Z11.51 Encounter for screening for human papillomavirus (HPV); N95.0 Postmenopausal bleeding
CPT/HCPCS: 87624; 88142

== ENCOUNTER 2022-01-08 14:56 | Outpatient (REF) | payer OTHER, SELFPAY ==
--- NOTE | ~2022-01-08 | XR_ITS ---
EXAMINATION: XR CHEST CLINICAL INFORMATION: Cough COMPARISON: Previous chest x-ray August 2021 TECHNIQUE: 2 views of the chest were obtained. FINDINGS: The cardiac and mediastinal contours are stable. The lungs are clear. There is no pleural effusion or pneumothorax. There are mild degenerative changes of the spine. XR/XR chest 2V IMPRESSION: No evidence for acute disease in the chest.
== END 2022-01-08 14:57 | disposition home or self-care (01) ==
LOC: HO.XRAY 14:56
PROVIDERS: PCP Internal Medicine; Visit Provider Internal Medicine
DX: R05.9 Cough, unspecified (principal); R06.00 Dyspnea, unspecified
CPT/HCPCS: 71046

== ENCOUNTER 2022-01-31 12:54 | Outpatient (REF) | payer OTHER, SELFPAY ==
--- NOTE | ~2022-01-31 | US_ITS ---
EXAMINATION: US PELVIS COMPLETE CLINICAL INFORMATION: Postmenopausal bleeding COMPARISON: CT abdomen pelvis 05/18/2018 TECHNIQUE: Transabdominal and transvaginal imaging was performed. FINDINGS: The uterus is enlarged and heterogeneous with multiple fibroids measuring 11.3 x 4.7 x 5.5 cm. Endometrium measures 0.8 cm in thickness. Multiple uterine myomas are seen including: A 4.3 cm dominant myoma in the right fundus of the uterus which may demonstrate a small less than 50% submucosal component, two 1.8 cm intramural myomas in the right body of the uterus, a 1.9 cm myoma in the fundus with a less than 50% submucosal component, a 2.2 cm subserosal myoma in the anterior body, and a 3.5 cm left fundal myoma with a less than 50% submucosal component. A 2.0 cm posterior cervical myomas also seen. The right ovary measures 2.4 x 1.6 x 1.9 cm for a volume of 3.8 mL. The transabdominal appearance of the right ovary is unremarkable. The left ovary was not identified sonographically. No adnexal mass. There is no pelvic free fluid. US/US pelvic and transvaginal IMPRESSION: The endometrium measures 0.8 cm in thickness, given history of postmenopausal bleeding recommend gynecologic evaluation and management. Heterogeneous uterus with uterine and cervical myomas. Several uterine myomas demonstrate small less than 50% submucosal components. The largest is a 4.3 cm myoma in the right fundus with a less than 50% submucosal mucosal component. Unremarkable transabdominal appearance of the right ovary. The left ovary was not identified sonographically. No adnexal mass.
== END 2022-01-31 12:55 | disposition home or self-care (01) ==
LOC: HO.US 12:54
PROVIDERS: Visit Provider Obstetrics & Gynecology
DX: N95.0 Postmenopausal bleeding (principal)
CPT/HCPCS: 76830; 76856

== ENCOUNTER 2022-02-14 10:10 | Outpatient (REF) | payer OTHER, SELFPAY | END 2022-02-14 10:11 | disposition home or self-care (01) | LOC: HO.LNP 10:10 | PROVIDERS: PCP Internal Medicine; Visit Provider Obstetrics & Gynecology | DX: N95.0 Postmenopausal bleeding (principal); D25.9 Leiomyoma of uterus, unspecified | CPT/HCPCS: 58100; 88305 ==

== ENCOUNTER → 2022-02-21 09:21 | Outpatient (BNVA) | payer OTHER, SELFPAY | PROVIDERS: PCP Internal Medicine; Visit Provider Obstetrics & Gynecology | DX: Z13.89 Encounter for screening for other disorder (principal) ==

== ENCOUNTER 2022-02-28 07:16 | Outpatient (REF) | payer OTHER, SELFPAY ==
[2022-02-28 07:48] LABS: MANUAL DIFF FLAG NO
[2022-02-28 09:13] LABS: Basophils Percent Auto 0.2 % (0-2); Eosinophils Absolute Auto 0.1 X10*3/uL (0.0-0.4); Eosinophils Percent Auto 2.9 % (0-4); Hematocrit 42.2 % (37.0-47.0); Hemoglobin 14.7 g/dl (12.0-16.0); Imm Gran Abs Auto 0.01 X10*3/uL (0.00-0.03); Imm Gran Pct Auto 0.2 % (0.0-0.4); Lymphocytes Absolute Auto 0.7 X10*3/uL (1.2-4.9); Mean Corpuscular HGB Conc 34.8 g/dl (31.0-35.0); Mean Corpuscular Hemoglobin 30.8 pg (27.0-33.0); Mean Corpuscular Volume 88.3 fL (80.0-98.0); Mean Platelet Volume 9.7 fL (9.4-12.3); Monocytes Absolute Auto 0.3 X10*3/uL (0.1-1.2); Neutrophils Percent Auto 72.7 % (45-73); Platelet Count 292 X10*3/uL (160-400); Red Blood Count 4.78 X10*6/uL (4.20-5.50); Red Cell Distribution Width 12.9 % (11.0-16.0); White Blood Count 4.2 X10*3/uL (4.8-10.8)
[2022-02-28 09:55] LABS: Alanine Aminotransferase 49 U/L (0-31); Albumin Level 4.2 g/dL (3.5-5.0); Aspartate Amino Transferase 39 U/L (5-31); C Reactive Protein 0.57 mg/dL (< or = 0.50); Estimated Glomerular Filt Rate 23; Free T4 (Free Thyroxine) < 0.42 ng/dL (0.71-1.85); Thyroid Stimulating Hormone 31.39 uIU/mL (0.32-4.0)
[2022-02-28 10:15] LABS: Erythrocyte Sedimentation Rate 5 MM/HR (0-20)
[2022-03-01 11:09] LABS: Thyroglobulin 0.6 ng/mL; Thyroglobulin Antibodies <1 IU/mL (< or = 1)
[2022-03-04 04:23] LABS: Thyroglobulin Antibody <1 IU/mL (<=1); Thyroglobulin Level 0.6 ng/mL
== END 2022-02-28 07:17 | disposition home or self-care (01) ==
LOC: HO.LAB 07:16
PROVIDERS: Absent Provider Internal Medicine Rheumatology; PCP Internal Medicine; Visit Provider Internal Medicine
DX: C73 Malignant neoplasm of thyroid gland (principal); Z79.899 Other long term (current) drug therapy
CPT/HCPCS: 36415; 82040; 82565; 84432; 84439; 84443; 84450; 84460; 85025; 85652; 86140; 86800

== ENCOUNTER 2022-03-14 14:58 | Outpatient (REF) | payer OTHER, SELFPAY ==
--- NOTE | ~2022-03-14 | MM_ITS ---
EXAMINATION: MM DIAGNOSTIC DIGITAL BREAST TOMOSYNTHESIS, BILATERAL US DIAGNOSTIC ULTRASOUND BREAST, RIGHT CLINICAL INFORMATION: Probable benign mildly complicated cyst right breast for follow-up. The lifetime risk of breast cancer based on the Tyrer-Cuzick Model is 8%. COMPARISON: Mammography: 09/05/2021, 08/30/2021, 08/01/2020, 12/07/2018; targeted right breast ultrasound 09/05/2021. TECHNIQUE: Digital breast tomosynthesis is performed in both the craniocaudal and mediolateral oblique views along with computer-aided detection (CAD). Synthesized 2D images are generated from the tomosynthesis. Additional left MLO view is provided. Ultrasound right breast is targeted to the outer breast using grayscale imaging and color Doppler without and with harmonics. FINDINGS: There are scattered areas of fibroglandular density (ACR BI-RADS breast composition Category b). There is fine fibronodular parenchymal pattern similar to prior studies. There is no developing density or interval significant mass or architectural abnormality. Nodular asymmetry upper outer left breast is stable from prior studies. Nodule periareolar outer right breast is smooth in stable in size. The other smaller finding mid outer right breast is no longer clearly visualized. Again, there are scattered bilateral ductal secretory and some round calcifications, greater on right. The axilla and skin contours are unremarkable. 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 There is increased through-transmission of sound. No associated peripheral or internal color flow. Other smaller finding previously noted at right 10:00 position is no longer clearly seen on either mammography or ultrasound. Results are discussed with the patient at time of visit. Management plan is for follow-up targeted right breast ultrasound for the mildly complicated periareolar cyst in 6 months. Bilateral mammography may be performed in 12 months. 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 -Smaller finding mid outer right breast no longer clearly demonstrated. Left: -No significant changes from prior studies. ASSESSMENT: BI-RADS 3: Probably Benign RECOMMENDATION: Targeted right breast ultrasound in 6 months. This patient's information was entered into a reminder system with a target due date for their next mammogram.
== END 2022-03-14 14:59 | disposition home or self-care (01) ==
LOC: HO.MAMMO 14:58
PROVIDERS: Visit Provider Internal Medicine
DX: N60.01 Solitary cyst of right breast (principal)
CPT/HCPCS: 76642; 77062; 77066

== ENCOUNTER 2022-03-22 10:11 | Day surgery (SDC) | payer OTHER, SELFPAY ==
[2022-03-18 11:07] VITALS: BMI 33.1
[2022-03-22 11:11] VITALS: BP 166/79; PULSE 65; RESP 16; TEMP 36.2; O2SAT 98
[2022-03-22 11:29] LABS: Glucose, Whole Blood 142 mg/dL (60-115)
[2022-03-22] MEDS: Lactated Ringers 1,000 ML 80 ML IVCONT (11:35)
--- NOTE | 2022-03-22 12:01 | MHC.SHP ---
Pre-Procedural Eval Section A Date of Service: 03/22/22 The patient is an INPATIENT: No Changes since office visit: No Cold of Flu in the past 2 weeks, No New Medical Problems, No Changes in Medication and No Patient answered all questions The History & Physical has been completed within 30 days and I have reviewed it.: Yes Section B Chief Complaint: Postmenopausal bleeding Allergies: Allergies Allergy/AdvReac Type Severity Reaction Status Date / Time ciprofloxacin [Cipro] Allergy Unknown rash Verified 03/18/22 11:02 amlodipine AdvReac Intermediate swelling Verified 03/18/22 11:02 Plan Diagnosis/Plan: Unchanged I have reviewed the history and physical and performed a pertinent physical examination on my patient. No changes have occurred unless specified. Time Spent With Patient Time: Total time managing care of this patient today ____ minutes.
--- NOTE | 2022-03-22 12:10 | HO.ANESPROP2 ---
HPI - Anesthesia Eval Consult details Narrative: D&C, hysteroscopy PMF Active Problems Active Problems: All Active Problems (Updated 03/18/22 @ 11:06 by Zamzam Pruitt, RN) Renal calculus, left (Acute) Right shoulder pain (Acute) Vitamin B12 deficiency (Acute) Sinus congestion (Acute) Hypercalcemia (Acute) Osteopenia (Acute) Hyperparathyroidism (Acute) Cough (Acute) Impacted cerumen, left ear (Acute) Postmenopausal bleeding (Acute) Cough (Acute) Dyspnea (Acute) Acute bronchitis (Acute) Uterine myoma (Acute) History of hyperparathyroidism (Acute) Postoperative hypothyroidism (Acute) Vitamin D deficiency (Acute) Thyroid cancer (Acute) Chronic kidney disease (Acute) History of thyroid cancer (Acute) Type 2 diabetes mellitus with hyperglycemia (Acute) Hypothyroid (Acute) Obesity (BMI 30-39.9) (Acute) Rheumatoid arthritis (Acute) Hypercholesterolemia (Acute) Hypertension (Acute) Insomnia (Acute) Past Medical History Medical History (Updated 03/18/22 @ 11:06 by Zamzam Pruitt, RN) Chronic kidney disease History of hyperparathyroidism History of radioactive iodine thyroid ablation History of thyroid cancer Hypercholesterolemia Hypertension Hypothyroid Insomnia Obesity (BMI 30-39.9) Parotitis Postoperative hypothyroidism Rheumatoid arthritis Thyroid cancer Type 2 diabetes mellitus with hyperglycemia Vitamin D deficiency Family History Family History Father CAD (coronary artery disease) Mother Dementia CAD (coronary artery disease) Sister Breast cancer Depression Family history of problems with anesthesia: No Surgical History Surgical History H/O wrist surgery History of section History of parathyroid surgery History of thyroid surgery History of tonsillectomy History of Problems with Anesthesia: No Social History Social History Housing: House Are you a primary floor care technician to a significant other at home: No Do you presently have visiting nurse or other home services: No Alcohol intake: current Alcohol intake frequency: does not drink Patient Tobacco Use Status: Never used Tobacco e-Cigarette/Vaping Use: Never Used Second Hand Smoke Exposure: No Use of substances other than those prescribed or required for medical reasons: No Are you DNR?: No Advance Directives: No Advance Directives Information Provided: Yes Advance Directives on File: No service: No Current occupational status: employed Current occupational exposures/hazards: No Cognitive needs: No Hearing needs: No Vision needs: Yes Meds Allergies Allergy/AdvReac Type Severity Reaction Status Date / Time ciprofloxacin [Cipro] Allergy Unknown rash Verified 03/18/22 11:02 amlodipine AdvReac Intermediate swelling Verified 03/18/22 11:02 Active Medications: Current Medications Lactated Ringer's (Lr) 1,000 mls @ 80 mls/hr IVCONT .[id number] JOANNE Last Admin: 03/22/22 11:35 Dose: 80 mls/hr Home Medications Medication Instructions Recorded Confirmed Last Taken Type tofacitinib 5 mg tablet (Xeljanz) 5 mg PO BID 01/11/20 03/18/22 Unknown History methotrexate sodium 2.5 mg tablet 10 mg PO QWEEK 12/07/21 03/18/22 Unknown History misoprostol 200 mcg tablet 200 mcg PO QID 12/07/21 03/18/22 Unknown History Exam Exam Date and Time: March 22, 2022 1210 Height,Weight and Vital Signs: Height 5 ft 3 in Weight 84.822 kg Last Vital Signs Temp 97.1 F 03/22/22 11:11 Pulse 65 03/22/22 11:11 Resp 16 03/22/22 11:11 BP 166/79 H 03/22/22 11:11 Pulse Ox 98 03/22/22 11:11 O2 Del Method 03/22/22 11:11 Pertinent Lab Results Pertinent Lab Results: Laboratory Tests 03/22/22 11:18 POC Glucose 142 H Airway Mallampati Class: II TM Dist: <=3cm Denture: Upper and Lower Heart: ok Lungs: ok Assessment and Plan Assessment Anesthesia Assessment: Anesthesia Plan Discussed and Chart Reviewed Final Anesthetic Review Family History of Problems with Anesthesia: No History of Problems with Anesthesia: No NPO: Yes ASA Class: III Final Preanesthetic Review: No Changes in Pt Med Stat, Meds/Allgs Chart Reviewed, Consent Obtained/Reviewed and Anes Risks/Benef Reviewed Patient Risk: Intermediate Procedure Risk: Low Anesthetic Plan Anesthetic Plan: GA and Agree w/ Assess. and Plan Disposition: Standard PACU
--- NOTE | 2022-03-22 12:48 | P.OP_ITS ---
Operative Note Operative Note Date of Service: 03/22/22 Narrative: Preop Diagnosis: Postmenopausal bleeding Operation: Diagnostic Hysteroscopy, Dilataion & Curettage and polypectomy Post Op Diagnosis: Endometrial Polyp QBL: Minimal Anesthesia: GLMA Surgeon: Omer Goodrich MD Laboratory Cureman: None Complication: None Pathology: Endometrial Scrapings, Endometrial polyp Procedure: The patient was put in the dorsal lithotomy position, scrubbed, and draped in the usual manner. A sterile speculum was inserted in the patient's vagina. The anterior lip of the cervix was grasped with a single tooth tenaculum. The cervix was dilated up to 5 mm, then the scope was inserted in the patient's uterus. Inspection revealed endometrial polyp. The Myosure Reach device was used; it was introduced through the operative channel and polypectomy done with no complications. The scope was then taken out from the uterine cavity, sharp curettings was carried on with minimal to moderate amount of tissues retrieved. At the end of the procedure, all instruments were taken out of the patient uterine and vaginal cavity. The single tooth tenaculum was removed and homeostasis was assured using pressure,. The patient tolerated the procedure well and was transferred to the PACU in a stable condition.
--- NOTE | 2022-03-22 12:48 | P.BOP_ITS ---
Brief Operative Note Date of Service: 03/22/22 Pre-op diagnosis: Postmenopausal bleeding Post-op diagnosis: same (Endometrial polyp) Procedure: Hysteroscopy D&C, Polypectomy Surgeon: Omer Goodrich MD Anesthesia: GLMA Was an Custodial Worker used for this Procedure?: No Estimated blood loss (mL): 0 Pathology: other (Endometrial Scrapping. Polyp) Condition: stable Disposition: PACU
[2022-03-22 13:00] VITALS: BP 128/60; PULSE 60; RESP 15; TEMP 36.9; O2SAT 98
[2022-03-22 13:05] VITALS: BP 123/55; PULSE 64; RESP 18; O2SAT 95
[2022-03-22 13:10] VITALS: BP 138/52; PULSE 61; RESP 17; O2SAT 96
[2022-03-22] MEDS: Acetaminophen 325 MG TABLET 650 MG PO (13:14)
[2022-03-22 13:15] VITALS: PULSE 66; RESP 18; O2SAT 95
[2022-03-22 13:33] VITALS: BP 133/43; PULSE 61; RESP 18; TEMP 36.3; O2SAT 97
== END 2022-03-22 14:02 | disposition home or self-care (01) ==
PROVIDERS: PCP Internal Medicine; Visit Provider Obstetrics & Gynecology
PROC: 0UDB8ZZ Extraction of Endometrium, Via Natural or Artificial Opening Endoscopic (ICD-10-PCS; CPT 58558; principal; 2022-03-22 12:20)
DX: N95.0 Postmenopausal bleeding (principal); N84.0 Polyp of corpus uteri; E11.22 Type 2 diabetes mellitus with diabetic chronic kidney disease; N18.30 Chronic kidney disease, stage 3 unspecified; I12.9 Hypertensive chronic kidney disease with stage 1 through stage 4 chronic kidney disease, or unspecified chronic kidney disease; E78.00 Pure hypercholesterolemia, unspecified; M06.9 Rheumatoid arthritis, unspecified; E89.0 Postprocedural hypothyroidism; Z85.850 Personal history of malignant neoplasm of thyroid; E55.9 Vitamin D deficiency, unspecified; E66.9 Obesity, unspecified; Z68.33 Body mass index [BMI] 33.0-33.9, adult; Z79.84 Long term (current) use of oral hypoglycemic drugs; Z79.899 Other long term (current) drug therapy; Z88.1 Allergy status to other antibiotic agents; Z88.8 Allergy status to other drugs, medicaments and biological substances; Z90.710 Acquired absence of both cervix and uterus; Z98.890 Other specified postprocedural states
CPT/HCPCS: 58558; 82947; 88305; J2405; J3010

== ENCOUNTER 2022-03-25 12:44 | Outpatient (REF) | payer OTHER, SELFPAY ==
[2022-03-25 14:51] LABS: Free T4 (Free Thyroxine) 1.09 ng/dL (0.71-1.85); Thyroid Stimulating Hormone 31.41 uIU/mL (0.32-4.0)
[2022-03-28 05:04] LABS: Thyroglobulin Antibody <1 IU/mL (<=1); Thyroglobulin Level 4.4 ng/mL
== END 2022-03-25 12:45 | disposition home or self-care (01) ==
LOC: HO.LAB 12:44
PROVIDERS: PCP Internal Medicine; Visit Provider Internal Medicine
DX: C73 Malignant neoplasm of thyroid gland (principal); E89.0 Postprocedural hypothyroidism; Z86.39 Personal history of other endocrine, nutritional and metabolic disease
CPT/HCPCS: 36415; 84432; 84439; 84443; 86800

== ENCOUNTER → 2022-04-04 12:03 | Outpatient (BNVA) | payer OTHER, SELFPAY | PROVIDERS: PCP Internal Medicine; Visit Provider Obstetrics & Gynecology | DX: Z13.89 Encounter for screening for other disorder (principal) ==

== ENCOUNTER 2022-04-08 09:03 | Outpatient (REF) | payer OTHER, SELFPAY ==
[2022-04-08 10:14] LABS: Free T4 (Free Thyroxine) 2.77 ng/dL (0.71-1.85); Thyroid Stimulating Hormone 0.14 uIU/mL (0.32-4.0)
[2022-04-09 13:09] LABS: Triiodothyronine T3 Total 122 ng/dL (76-181)
== END 2022-04-08 09:04 | disposition home or self-care (01) ==
LOC: HO.LAB 09:03
PROVIDERS: PCP Internal Medicine; Visit Provider Internal Medicine
DX: E89.0 Postprocedural hypothyroidism (principal)
CPT/HCPCS: 36415; 84439; 84443; 84480

== ENCOUNTER 2022-04-24 12:00 | Outpatient (REF) | payer OTHER, SELFPAY ==
[2022-04-24 13:09] LABS: Eosinophils Percent Auto 1.6 % (0-4); Hematocrit 35.8 % (37.0-47.0); Hemoglobin 12.4 g/dl (12.0-16.0); Imm Gran Abs Auto 0.01 X10*3/uL (0.00-0.03); Imm Gran Pct Auto 0.4 % (0.0-0.4); Lymphocytes Absolute Auto 0.6 X10*3/uL (1.2-4.9); Lymphocytes Percent Auto 22.8 % (20-40); MANUAL DIFF FLAG SCAN; Mean Corpuscular HGB Conc 34.6 g/dl (31.0-35.0); Mean Corpuscular Hemoglobin 32.2 pg (27.0-33.0); Mean Platelet Volume 10.1 fL (9.4-12.3); Monocytes Absolute Auto 0.6 X10*3/uL (0.1-1.2); Monocytes Percent Auto 23.2 % (2-11); Neutrophils Absolute Auto 1.3 x10*3/uL (2.0-8.3); Platelet Count 163 X10*3/uL (160-400); Red Blood Count 3.85 X10*6/uL (4.20-5.50); Red Cell Distribution Width 13.8 % (11.0-16.0); SCAN SMEAR FLAG 1
[2022-04-24 13:10] LABS: White Blood Count 2.5 X10*3/uL (4.8-10.8)
[2022-04-24 13:45] LABS: Erythrocyte Sedimentation Rate 22 MM/HR (0-20)
[2022-04-24 13:52] LABS: Alanine Aminotransferase 20 U/L (0-31); Albumin Level 4.1 g/dL (3.5-5.0); Aspartate Amino Transferase 17 U/L (5-31); C Reactive Protein 0.89 mg/dL (< or = 0.50); Estimated Glomerular Filt Rate 45
[2022-04-24 13:57] LABS: SLIDE REVIEW VERIFIED
== END 2022-04-24 12:01 | disposition home or self-care (01) ==
LOC: HO.LAB 12:00
PROVIDERS: PCP Internal Medicine; Visit Provider Internal Medicine Rheumatology
DX: M05.79 Rheumatoid arthritis with rheumatoid factor of multiple sites without organ or systems involvement (principal); C73 Malignant neoplasm of thyroid gland; Z79.899 Other long term (current) drug therapy
CPT/HCPCS: 36415; 82040; 82565; 84450; 84460; 85025; 85652; 86140

== ENCOUNTER 2022-05-13 15:20 | Outpatient (REF) | payer OTHER, SELFPAY ==
--- NOTE | ~2022-05-13 | US_ITS ---
EXAMINATION: US SOFT TISSUE NECK CLINICAL INFORMATION: History of thyroid cancer/papillary. COMPARISON: None available. TECHNIQUE: Limited ultrasound imaging neck lymph nodes was performed. FINDINGS: There are bilateral lymph nodes visualized. RIGHT NECK: Level Ib: Lymph node measures 1.1 x 0.4 x 0.5 cm and has normal architecture. Level 2: Lymph node measures 0.5 x 0.6 x 0.6 cm. It has normal architecture. LEFT NECK: Level 2: Lymph node measures 0.3 x 0.3 x 0.6 cm. It has abnormal architecture. Level 4: Lymph node measures 0.5 x 0.3 x 0.6 cm. It has normal architecture. US/US soft tiss head and/or neck IMPRESSION: 1. Subcentimeter abnormal-appearing lymph node left neck level 2. Recommend follow-up. The rest of the lymph nodes are benign-appearing. 2. If clinically indicated further evaluation of the neck soft tissues and nodes may be performed with CT soft tissue neck with intravenous contrast.
== END 2022-05-13 15:21 | disposition home or self-care (01) ==
LOC: HO.US 15:20
PROVIDERS: Visit Provider Internal Medicine
DX: Z85.850 Personal history of malignant neoplasm of thyroid (principal)
CPT/HCPCS: 76536

== ENCOUNTER 2022-05-31 07:39 | Outpatient (REF) | payer OTHER, SELFPAY ==
[2022-05-31 08:11] LABS: MANUAL DIFF FLAG NO
[2022-05-31 08:27] LABS: Basophils Percent Auto 0.4 % (0-2); Eosinophils Absolute Auto 0.2 X10*3/uL (0.0-0.4); Hematocrit 38.2 % (37.0-47.0); Hemoglobin 13.2 g/dl (12.0-16.0); Imm Gran Abs Auto 0.04 X10*3/uL (0.00-0.03); Imm Gran Pct Auto 0.6 % (0.0-0.4); Lymphocytes Absolute Auto 0.5 X10*3/uL (1.2-4.9); Lymphocytes Percent Auto 7.7 % (20-40); Mean Corpuscular HGB Conc 34.6 g/dl (31.0-35.0); Mean Corpuscular Hemoglobin 33.6 pg (27.0-33.0); Mean Corpuscular Volume 97.2 fL (80.0-98.0); Mean Platelet Volume 9.6 fL (9.4-12.3); Monocytes Absolute Auto 0.6 X10*3/uL (0.1-1.2); Monocytes Percent Auto 9.3 % (2-11); Neutrophils Absolute Auto 5.4 x10*3/uL (2.0-8.3); Platelet Count 226 X10*3/uL (160-400); Red Blood Count 3.93 X10*6/uL (4.20-5.50); White Blood Count 6.9 X10*3/uL (4.8-10.8)
[2022-05-31 09:16] LABS: Alanine Aminotransferase 16 U/L (0-31); Albumin Level 4.4 g/dL (3.5-5.0); Alkaline Phosphatase 68 U/L (39-117); Anion Gap 13 (12-20); Aspartate Amino Transferase 12 U/L (5-31); Bilirubin Total 0.7 mg/dL (0.0-1.0); Blood Urea Nitrogen 21 mg/dL (9-16); Calcium 9.7 mg/dL (8.4-10.2); Carbon Dioxide 15 mmol/L (22-29); Chloride 115 mmol/L (96-108); Cholesterol 117 mg/dL; Estimated Glomerular Filt Rate 37; Glucose Random 200 mg/dL (60-115); HDL Cholesterol 38 mg/dL; LDL Cholesterol Calculated 68 mg/dl; Potassium 4.7 mmol/L (3.3-5.1); Sodium 138 mmol/L (135-145); Total Protein 6.7 g/dL (6.5-8.0); Triglycerides 59 mg/dL
[2022-05-31 09:44] LABS: Folate 15.3 ng/mL (> or = 4.0); Free T4 (Free Thyroxine) 1.41 ng/dL (0.71-1.85); Thyroid Stimulating Hormone 0.15 uIU/mL (0.32-4.0); Vitamin B12 1083 pg/mL (200-900); Vitamin D 25-OH Total 51.5 ng/mL (>30)
[2022-06-06 06:49] LABS: Thyroglobulin Antibody <1 IU/mL (<=1); Thyroglobulin Level 0.1 ng/mL
== END 2022-05-31 07:40 | disposition home or self-care (01) ==
LOC: HO.LAB 07:39
PROVIDERS: Internal Medicine; PCP Internal Medicine; Visit Provider Internal Medicine
DX: E78.00 Pure hypercholesterolemia, unspecified (principal); C73 Malignant neoplasm of thyroid gland; E11.65 Type 2 diabetes mellitus with hyperglycemia; M85.80 Other specified disorders of bone density and structure, unspecified site; N18.9 Chronic kidney disease, unspecified; E55.9 Vitamin D deficiency, unspecified
CPT/HCPCS: 36415; 80053; 80061; 82306; 82607; 82746; 84432; 84439; 84443; 85025; 86800

== ENCOUNTER 2022-06-05 13:09 | Outpatient (REF) | payer OTHER, SELFPAY ==
[2022-06-05 14:48] LABS: Creatinine Urine 98.56 mg/dL; Microalbum/Creatinine Ratio Ur 12.1 ug/mg cr
== END 2022-06-05 13:10 | disposition home or self-care (01) ==
LOC: HO.LNP 13:09
PROVIDERS: Visit Provider Internal Medicine
DX: E11.65 Type 2 diabetes mellitus with hyperglycemia (principal)
CPT/HCPCS: 82043

== ENCOUNTER 2022-06-21 12:53 | Outpatient (REF) | payer OTHER, SELFPAY ==
--- NOTE | ~2022-06-21 | US_ITS ---
EXAMINATION: US PELVIS CLINICAL INFORMATION: Postmenopausal bleeding. COMPARISON: Ultrasound pelvis 01/31/2022. TECHNIQUE: Ultrasound of the pelvis is performed using both transabdominal and transvaginal transducers along with Doppler. Transvaginal imaging is performed due to inadequate visualization transabdominally. FINDINGS: Uterus: The uterus is anteverted, anteflexed and measures 13.0 cm in length, 6.0 cm in AP and 7.2 cm in transverse dimensions. The double wall endometrial thickness is 1.4 cm. The uterus is bulky and heterogeneous. There are hypoechoic to hyperechoic lesions, right fundus measuring 4.2 x 4.5 x 4.4 cm. Previously it measured 4.1 x 4.3 x 3.7 cm. Second slightly isodense lesion in the left upper body of uterus measures 4.8 x 4.8 x 4.2 cm. Previously it measured 3.5 x 2.7 x 3.4 cm. They are consistent with fibroids. There are several anechoic cysts in the cervix. Adnexa: Both ovaries are not visualized. There is no free fluid in the cul-de-sac. US/US pelvic and transvaginal IMPRESSION: Heterogeneous bulky uterus with multiple fibroids, only 2 large fibroids measured. They are grossly stable. The ovaries are not visualized. There is no free fluid in cul-de-sac.
== END 2022-06-21 12:54 | disposition home or self-care (01) ==
LOC: HO.US 12:53
PROVIDERS: Absent Provider Obstetrics & Gynecology; PCP Internal Medicine; Visit Provider Obstetrics & Gynecology Gynecologic Oncology
DX: N95.0 Postmenopausal bleeding (principal)
CPT/HCPCS: 76830; 76856

== ENCOUNTER → 2022-07-03 09:09 | Outpatient (BNVA) | payer OTHER, SELFPAY | PROVIDERS: PCP Internal Medicine; Visit Provider Obstetrics & Gynecology ==

== ENCOUNTER 2022-07-25 08:53 | Outpatient (REF) | payer OTHER, SELFPAY ==
[2022-07-25 11:05] LABS: Free T4 (Free Thyroxine) 1.35 ng/dL (0.71-1.85); Thyroid Stimulating Hormone 0.21 uIU/mL (0.32-4.0)
[2022-07-31 06:33] LABS: Thyroglobulin Antibody <1 IU/mL (<=1); Thyroglobulin Level 0.1 ng/mL
== END 2022-07-25 08:54 | disposition home or self-care (01) ==
LOC: HO.LAB 08:53
PROVIDERS: Visit Provider Internal Medicine
DX: C73 Malignant neoplasm of thyroid gland (principal)
CPT/HCPCS: 36415; 84432; 84439; 84443; 86800

== ENCOUNTER → 2022-07-29 08:21 | Outpatient (BNVA) | payer OTHER, SELFPAY | PROVIDERS: PCP Internal Medicine; Visit Provider Internal Medicine ==

== ENCOUNTER 2022-08-27 11:23 | Outpatient (REF) | payer OTHER, SELFPAY ==
--- NOTE | ~2022-08-27 | US_ITS ---
EXAMINATION: US PELVIS CLINICAL INFORMATION: Leiomyoma of uterus, unknown last menstrual period, postmenopausal. COMPARISON: 06/21/2022 TECHNIQUE: Ultrasound of the pelvis is performed using both transabdominal and transvaginal transducers along with Doppler. Transvaginal imaging is performed due to inadequate visualization transabdominally. FINDINGS: The uterus is anteverted, heterogeneous and measures 13.0 x 5.7 x 8.2 cm. Multiple fibroids are identified, largest as follows: Right fundus 4.2 x 3.8 x 4.2 cm, previously 4.2 x 4.5 x 4.4 cm. Left 1.7 x 1.2 x 1.3 cm. Left 2.0 x 2.6 x 2.4 cm. Left 2.2 x 1.3 x 1.6 cm. Previous left fibroid measured 4.8 x 4.8 x 4.2 cm. Visualization of the endometrium is limited due to fibroids. Imaged segment of endometrium demonstrates thickness of 0.6 cm. Left ovary not visualized. Right ovary not visualized. No significant free fluid. Visualization limited due to enlarged fibroid uterus and bowel gas. US/US pelvic and transvaginal IMPRESSION: 1. Enlarged fibroid uterus. 2. Imaged segment of endometrium demonstrates thickness of 0.6 cm which is abnormal in a postmenopausal patient. Clinical history for exam of 06/21/2022 reported postmenopausal bleeding. Gynecologic consultation and possible biopsy recommended.
== END 2022-08-27 11:24 | disposition home or self-care (01) ==
LOC: HO.US 11:23
PROVIDERS: PCP Internal Medicine; Visit Provider Obstetrics & Gynecology
DX: D25.9 Leiomyoma of uterus, unspecified (principal)
CPT/HCPCS: 76830; 76856

== ENCOUNTER 2022-09-13 07:59 | Outpatient (REF) | payer OTHER, SELFPAY ==
--- NOTE | ~2022-09-13 | US_ITS ---
EXAMINATION: US DIAGNOSTIC ULTRASOUND BREAST, RIGHT CLINICAL INFORMATION: Recommended short interval follow-up of a complicated breast cysts in the right 9:00 position. COMPARISON: Right breast sonography from 04-04. TECHNIQUE: Ultrasound of the breast is performed with real-time lopez scale imaging and color Doppler. FINDINGS: There is no focal suspicious finding. There is no solid mass, architectural abnormality, duct ectasia, or edema in the soft tissue planes. In the 9:00 region of the right breast, 3 cm from the nipple, there is a 4 mm x 4 mm x 4 mm heterogeneous hypoechoic structure which represents a complicated cyst. It is smaller then it was in March 2022 and slightly more echogenic indicating that it is resolving. This is a benign finding. Results are discussed with the patient at time of visit. US/US breast RT limited mamm only IMPRESSION: Benign resolving 4 mm right breast cysts in the 9:00 region 3 cm from the nipple. ASSESSMENT: BI-RADS 2: Benign RECOMMENDATION: Routine annual mammography screening. This patient's information was entered into a reminder system with a target due date for their next mammogram.
== END 2022-09-13 08:00 | disposition home or self-care (01) ==
LOC: HO.MAMMO 07:59
PROVIDERS: PCP Internal Medicine; Visit Provider Internal Medicine
DX: N60.01 Solitary cyst of right breast (principal)
CPT/HCPCS: 76642

== ENCOUNTER → 2022-09-13 08:00 | Outpatient (BNV) | payer OTHER, SELFPAY | PROVIDERS: PCP Internal Medicine; Visit Provider Radiology Diagnostic Radiology | DX: N60.01 Solitary cyst of right breast (principal) | CPT/HCPCS: 76642; 77080 ==

== ENCOUNTER 2022-10-10 09:34 | Outpatient (REF) | payer OTHER, SELFPAY ==
[2022-10-10 09:53] LABS: MANUAL DIFF FLAG NO
[2022-10-10 10:06] LABS: Basophils Percent Auto 0.4 % (0-2); Eosinophils Absolute Auto 0.2 X10*3/uL (0.0-0.4); Eosinophils Percent Auto 3.1 % (0-4); Hemoglobin 14.2 g/dl (12.0-16.0); Imm Gran Abs Auto 0.02 X10*3/uL (0.00-0.03); Imm Gran Pct Auto 0.4 % (0.0-0.4); Lymphocytes Absolute Auto 0.8 X10*3/uL (1.2-4.9); Lymphocytes Percent Auto 14.9 % (20-40); Mean Corpuscular HGB Conc 33.8 g/dl (31.0-35.0); Mean Corpuscular Hemoglobin 32.3 pg (27.0-33.0); Mean Corpuscular Volume 95.5 fL (80.0-98.0); Mean Platelet Volume 9.2 fL (9.4-12.3); Monocytes Absolute Auto 0.5 X10*3/uL (0.1-1.2); Monocytes Percent Auto 9.4 % (2-11); Neutrophils Absolute Auto 3.8 x10*3/uL (2.0-8.3); Neutrophils Percent Auto 71.8 % (45-73); Platelet Count 222 X10*3/uL (160-400); Red Cell Distribution Width 13.2 % (11.0-16.0); White Blood Count 5.2 X10*3/uL (4.8-10.8)
[2022-10-10 10:40] LABS: Alanine Aminotransferase 19 U/L (0-31); Aspartate Amino Transferase 16 U/L (5-31); C Reactive Protein 0.76 mg/dL (< or = 0.50); Estimated Glomerular Filt Rate 30
[2022-10-10 10:45] LABS: Erythrocyte Sedimentation Rate 7 MM/HR (0-20)
== END 2022-10-10 09:35 | disposition home or self-care (01) ==
LOC: HO.LAB 09:34
PROVIDERS: Visit Provider Internal Medicine Rheumatology
DX: M06.9 Rheumatoid arthritis, unspecified (principal)
CPT/HCPCS: 36415; 82565; 84450; 84460; 85025; 85652; 86140

== ENCOUNTER 2022-12-03 12:25 | Outpatient (AMB) | payer OTHER, SELFPAY ==
--- NOTE | 2022-12-03 11:43 | MHC.PC.OV ---
Vital Signs 12/03/22 11:44 Height 5 ft 3 in Weight 173 lb 0.6 oz BMI 30.6 BP 140/82 H Blood Pressure Location Lt brachial Position Sitting Pulse 69 Pulse Source Pulse Oximeter Pulse Oximetry (%) 99 Oxygen Delivery Method Room Air Intake Visit Reasons: 3mth f/u Bowling Ball Marker Required: No Allergies ciprofloxacin [Cipro] Allergy (Unknown, Verified 12/03/22 11:44) rash amlodipine Adverse Reaction (Intermediate, Verified 12/03/22 11:44) swelling Tobacco use date assessed: 12/03/22 Dental Screening Dental Screen Date: 12/03/22 Did you have a dental visit in the last 12 months?: Yes Did you have a dental problem in the last 6 months where you did not have access to dental care?: No Was dental information given to patient?: Patient has dentist HPI 3mth f/u HPI Details 62-year-old obese female with multiple medical problems. She is diabetic with rheumatoid arthritis hypertension hypercholesterolemia history of thyroid cancer with hypothyroidism coming in for follow-up. Patient has mammogram is up to Cologuard testing is up-to-date. Patient has endometrial hyperplasia with her ultrasound showing multiple fibroid uterus which is improving treated with norethindrone and the need for resampling after 3 patient was seen in September. Patient also had an ultrasound of the breast with resolving cyst. Patient follows up with endocrinology July 2022 for the thyroid cancer and hyperparathyroidism. ff up US and surgery. for the thyroid- will be seeing a new endo- planned PET scan . [facility] Medical History Chronic kidney disease History of hyperparathyroidism History of radioactive iodine thyroid ablation History of thyroid cancer Hypercholesterolemia Hypertension Hypothyroid Insomnia Obesity (BMI 30-39.9) Parotitis Postoperative hypothyroidism Rheumatoid arthritis Thyroid cancer Type 2 diabetes mellitus with hyperglycemia Vitamin D deficiency Surgical History H/O wrist surgery History of section History of hysteroscopy History of parathyroid surgery History of thyroid surgery History of tonsillectomy Family History Father CAD (coronary artery disease) Mother Dementia CAD (coronary artery disease) Sister Breast cancer Depression Social History (Reviewed 07/29/22 @ 09:01 by LEAH Nunez Housing: House Are you a primary care attendant to a significant other at home: No Do you presently have visiting nurse or other home services: No Alcohol intake: current Alcohol intake frequency: does not drink Patient Tobacco Use Status: Never used Tobacco e-Cigarette/Vaping Use: Never Used Second Hand Smoke Exposure: No service: No Current occupational status: employed Current occupational exposures/hazards: No Cognitive needs: No Hearing needs: No Vision needs: Yes Female Reproductive History Menstrual Age of Menarche: 12 Questionnaire Thrive Questionnaire Date Thrive assessed: 02/20/22 AUDIT C Alcohol Use Questionnaire (AUDIT-C) 1. How often do you have a drink containing alcohol?: Monthly or less 2. How many drinks containing alcohol do you have on a typical day when you are drinking?: 1 or 2 3. How often do you have six or more drinks on one occasion?: Never Total Score: 1 JAIRO-7 AMB Questionnaire JAIRO-7 Date JAIRO - 7 assessed: 02/20/22 Source: Developed by Drs. Miah Moreno, Katia Smith, Junior Alejo and colleagues, with an educational beth from [employer]. Physical exam (Primary Care) Vital Signs: Last Vital Signs Pulse 69 12/03/22 11:44 BP 140/82 H 12/03/22 11:44 Pulse Ox 99 12/03/22 11:44 Oxygen Delivery Method Room Air 12/03/22 11:44 BMI result Body Mass Index 30.6 Tobacco/Smoking Status: Tobacco use Status Tobacco use date assessed 12/03/22 12/03/22 11:44 Patient Tobacco Use Status Never used Tobacco 12/03/22 11:44 e-Cigarette/Vaping Use Never Used 12/03/22 11:44 Thrive Assessment: Date of Thrive Assessment Date Thrive assessed 02/20/22 12/03/22 11:44 Const General: alert; No acute distress Eyes Conjunctivae: conjunctivae normal Resp Auscultation: clear to auscultation bilaterally Cardio Rate: regular rate Rhythm: regular rhythm GI Inspection: Yes normal to inspection Extrem General: Yes normal to inspection and No edema Results AMB Hemoglobin A1c AMB Hemoglobin A1c 8.4 % Last Edit by LONNIE Davis on 12/03/22 12:40 Results Reviewed Results Reviewed: Laboratory Last Values Hgb A1c (Clinic) 8.4 % (4.0-6.0) H 12/03/22 11:42 Assessment and Plan Assessment & Plan (1) Type 2 diabetes mellitus with hyperglycemia: Comment: Pt has CKD stage 3, HTN, Hypercalcemia Code(s): E11.65 - Type 2 diabetes mellitus with hyperglycemia Qualifiers: Diabetes mellitus rat exterminator insulin use: without rat exterminator use Qualified Code(s): E11.65 - Type 2 diabetes mellitus with hyperglycemia Plan: Decrease the amount of carbohydrate intake, pasta, bread, rice and potatoes are all sugar and that is aside from all the sweet stuff, remember that fruits are good but they are Sweet also. Hemoglobin A1c goal of less than 6.5. Patient on glimepiride 2 mg once a day metformin a 1000 mg twice a day and Januvia 50 mg once a day (2) Obesity (BMI 30-39.9): Code(s): E66.9 - Obesity, unspecified Plan: Diet and exercise (3) Hypertension: Code(s): I10 - Essential (primary) hypertension Qualifiers: Hypertension type: essential hypertension Qualified Code(s): I10 - Essential (primary) hypertension Plan: Continue with blood pressure medication. Decrease salt intake and exercise presently on lisinopril 10 mg once a day (4) Hypercholesterolemia: Code(s): E78.00 - Pure hypercholesterolemia, unspecified Plan: Avoid fried foods, chicken skin, eggs, butter margarine, pastries and meat. Be it pork or beef they have a lot of cholesterol LDL goal of less than 100 and triglyceride of less than 150. Patient on simvastatin 10 (5) History of thyroid cancer: Comment: Papillary April 2016 Dr. Johny Buckner Right selective neck dissection November 2021 Code(s): Z85.850 - Personal history of malignant neoplasm of thyroid Plan: Patient follows up with endocrinology and continued surveillance (6) Chronic kidney disease: Code(s): N18.9 - Chronic kidney disease, unspecified Qualifiers: Chronic kidney disease stage: stage 3 (moderate) Chronic kidney disease stage 3 subtype: stage 3a (GFR 45-59) Qualified Code(s): N18.31 - Chronic kidney disease, stage 3a Plan: Continue to monitor, keep well hydrated (7) Postoperative hypothyroidism: Code(s): E89.0 - Postprocedural hypothyroidism Plan: Continue with thyroid medication is followed by Endocrinology (8) Uterine myoma: Code(s): D25.9 - Leiomyoma of uterus, unspecified Plan: Patient follows up with Gynecology and has been given Norethindrone (9) Bilateral hip pain: Code(s): M25.551 - Pain in right hip; M25.552 - Pain in left hip Orders: Orders PT Evaluation and Treatment Today M25.551 - Pain in right hip, M25.552 - Pain in left hip AMB Hemoglobin A1c Today E11.65 - Type 2 diabetes mellitus with hyperglycemia Referrals Nephrology Referral N18.31 - Chronic kidney disease, stage 3a Medications: New empagliflozin (Jardiance) 10 mg PO DAILY 30 tabs 6RF E11.65 - Type 2 diabetes mellitus with hyperglycemia Changed From metformin 1,000 mg (2 x 500 mg) PO BID 360 tabs 3RF To metformin 500 mg PO BID 360 tabs 3RF Coding Level of Care Code Est Pt Level 4 (65651) Diagnoses Type 2 diabetes mellitus with hyperglycemia, without long-term current use of insulin E11.65 Diabetes mellitus [facility] insulin use: without [facility] use Obesity (BMI 30-39.9) E66.9 Essential hypertension I10 Hypertension type: essential hypertension Hypercholesterolemia E78.00 History of thyroid cancer Z85.850 Stage 3a chronic kidney disease N18.31 Chronic kidney disease stage: stage 3 (moderate) Chronic kidney disease stage 3 subtype: stage 3a (GFR 45-59) Postoperative hypothyroidism E89.0 Uterine myoma D25.9 Bilateral hip pain M25.551; M25.552
[2022-12-03 11:44] VITALS: BP 140/82; PULSE 69; O2SAT 99; BMI 30.6
== END 2022-12-03 13:03 | disposition home or self-care (01) ==
PROVIDERS: PCP Internal Medicine; Visit Provider Internal Medicine
DX: E11.65 Type 2 diabetes mellitus with hyperglycemia (principal); I12.9 Hypertensive chronic kidney disease with stage 1 through stage 4 chronic kidney disease, or unspecified chronic kidney disease; N18.31 Chronic kidney disease, stage 3a; E78.00 Pure hypercholesterolemia, unspecified; Z85.850 Personal history of malignant neoplasm of thyroid; E89.0 Postprocedural hypothyroidism; D25.9 Leiomyoma of uterus, unspecified; M25.551 Pain in right hip; M25.552 Pain in left hip
CPT/HCPCS: 83036; 99214

== ENCOUNTER 2022-12-09 10:53 | Outpatient (REF) | payer OTHER, SELFPAY ==
--- NOTE | ~2022-12-09 | US_ITS ---
EXAMINATION: US PELVIS CLINICAL INFORMATION: Postmenopausal bleeding. Unknown last menstrual period. COMPARISON: 08/28/2022, 06/21/2022 TECHNIQUE: Ultrasound of the pelvis is performed using both transabdominal and transvaginal transducers along with Doppler. Transvaginal imaging is performed due to inadequate visualization transabdominally. FINDINGS: The uterus is anteverted, heterogeneous and measures 13.1 x 6.4 x 7.1 cm. Multiple fibroids are identified, largest as follows: Right fundus 4.2 x 4.2 x 4.9 cm, previously 4.2 x 3.8 x 4.2 cm. 2.4 x 2.1 x 1.8 cm, previously 2.0 x 2.6 x 2.4 cm. 2.2 x 0.9 x 2.4 cm, previously 1.7 x 1.2 x 1.3 cm. Previously identified 2.2 x 1.3 x 1.6 fibroid is not clearly demonstrated today. 2.2 x 2.6 x 2.8 cm fibroid may not have been fully characterized on prior exams. The endometrium is poorly visualized due to uterine fibroids and heterogeneity. Bilateral ovaries were not visualized. Small amount of fluid seen within the cervix with nabothian cysts. US/US pelvic and transvaginal IMPRESSION: 1. Enlarged fibroid uterus. 2. Bilateral ovaries were not visualized. 3. Endometrium is not visualized due to enlarged, fibroid uterus. Given the abnormal appearance of the endometrium on the prior exam of 08/28/2022, and nonvisualization of the endometrium on the current exam, recommend gynecologic consultation to determine further management including possible biopsy or additional imaging with MRI.
== END 2022-12-09 10:54 | disposition home or self-care (01) ==
LOC: HO.US 10:53
PROVIDERS: PCP Internal Medicine; Visit Provider Obstetrics & Gynecology
DX: N95.0 Postmenopausal bleeding (principal)
CPT/HCPCS: 76830; 76856

== ENCOUNTER 2022-12-25 10:26 | Outpatient (AMB) | payer OTHER, SELFPAY ==
[2022-12-25 10:49] VITALS: BP 138/82; PULSE 70; BMI 30.5
--- NOTE | 2022-12-25 10:49 | HO.NEPHOV ---
HPI HPI Comments History of Present Illness Details I had the privilege of seeing Joanna in consultation and establishment of care of for her CKD. She has seen a medical instrument technician in [facility] where she follows up with her Silk Examiner for her Rheumatoid Arthritis. She has long standing history of diabetes mellitus and hypertension with no H/O significant proteinuria in addition to her other medical issues including hypothyroidism (postoperative from thyroid cancer), hypercholesterolemia, osteoarthritis as well as primary hyperparathyroidism status post parathyroidectomy.She has no hypoglycemic episodes.Her serum creatinine had been around 1.4 for some time but has progressed one time to over 2 but lately has been around 1.7. She has H/O renal stones. She regularly takes NSAID's for her joint issues while she is on ACEI. She is on MTX as well as Jardiance. She denied any CAD, CVA, VENTURA, PAD or CHF. She denies any hematuria but has H/O renal stones. She tries to keep herself hydrated. She has no nausea, vomiting, diarrhea, SOB, PND, orthopnea , pedal edema or new skin rashes. Her last serum creatinine was 1.74 PFS Medical History History of radioactive iodine thyroid ablation History of hyperparathyroidism Postoperative hypothyroidism Vitamin D deficiency Thyroid cancer Chronic kidney disease Type 2 diabetes mellitus with hyperglycemia Hypothyroid Obesity (BMI 30-39.9) Parotitis History of thyroid cancer Rheumatoid arthritis Hypercholesterolemia Hypertension Insomnia Surgical History History of hysteroscopy History of thyroid surgery History of parathyroid surgery H/O wrist surgery History of tonsillectomy History of section Family History Father CAD (coronary artery disease) Mother Dementia CAD (coronary artery disease) Sister Breast cancer Depression Housing: House Are you a primary career services assistant to a significant other at home: No Do you presently have visiting nurse or other home services: No Alcohol intake: current Alcohol intake frequency: does not drink Patient Tobacco Use Status: Never used Tobacco e-Cigarette/Vaping Use: Never Used Second Hand Smoke Exposure: No service: No Current occupational status: employed Current occupational exposures/hazards: No Cognitive needs: No Hearing needs: No Vision needs: Yes Female Reproductive History Menstrual Age of Menarche: 12 Vital Signs 12/25/22 10:49 Height 5 ft 3 in Weight 172 lb BMI 30.5 BP 138/82 Blood Pressure Location Lt brachial Position Sitting Pulse 70 Pulse Source Pulse Oximeter Physical Exam Vital Signs: Last Vital Signs Pulse 70 12/25/22 10:49 BP 138/82 12/25/22 10:49 BMI result Body Mass Index 30.5 Const General: comfortable and no acute distress Orientation/consciousness: patient oriented x3 HEENT Head: Yes normocephalic Mouth: Normal oral and palatal mucosa present Eyes EOM: EOMs intact bilaterally Neck Neck: Yes supple Resp Auscultation: clear to auscultation bilaterally Cardio Jugular venous distension: no JVD Rate: regular rate GI Palpation (GI): Soft to palpation Auscultation: normal bowel sounds General: Yes no CVA tenderness Back/Spine/Pelvis Back: no CVA tenderness Skin General skin exam: no rashes or lesions noted Neuro General: patient oriented x3 and moves all extremities Extrem General: Yes no pedal edema Assessment & Plan Assessment & Plan (1) CKD (chronic kidney disease) stage 3, GFR 30-59 ml/min: Code(s): N18.30 - Chronic kidney disease, stage 3 unspecified Qualifiers: Chronic kidney disease stage 3 subtype: stage 3a (GFR 45-59) Qualified Code(s): N18.31 - Chronic kidney disease, stage 3a (2) Renal calculus, left: Comment: 01/2021 Code(s): N20.0 - Calculus of kidney (3) Hypertension: Code(s): I10 - Essential (primary) hypertension Qualifiers: Hypertension type: essential hypertension Qualified Code(s): I10 - Essential (primary) hypertension Plan Joanna has CKD 3 likely from vascular disease on a backdrop of DM and HTN. She has RA and is on MTX as well as NSAID's. She takes ACEI as well as Jardiance. She may be having progression of her renal disease. She has no H/O proteinuria. Her BP has been at goal. Her A1c needs to be improved significantly. She needs to maintain good hydration. I may cut back on her ACEI. Imaging and further W/U has been ordered. She may need a renal biopsy which I plan to discuss further with her with time. Further management is pending evolving data. Time spent reviewing all data, documentation and patient encounter 61 minutes. Follow up appointment given Orders: Orders UA and rflx microscopic 12/25/22 N18.30 - Chronic kidney disease, stage 3 unspecified, N20.0 - Calculus of kidney, G47.00 - Insomnia, unspecified Protein Creatinine Ratio, Ur 12/25/22 N18.30 - Chronic kidney disease, stage 3 unspecified, N20.0 - Calculus of kidney, G47.00 - Insomnia, unspecified Electrolytes 12/25/22 N18.30 - Chronic kidney disease, stage 3 unspecified, N20.0 - Calculus of kidney, G47.00 - Insomnia, unspecified Blood Urea Nitrogen 12/25/22 N18.30 - Chronic kidney disease, stage 3 unspecified, N20.0 - Calculus of kidney, G47.00 - Insomnia, unspecified Creatinine 12/25/22 N18.30 - Chronic kidney disease, stage 3 unspecified, N20.0 - Calculus of kidney, G47.00 - Insomnia, unspecified Calcium 12/25/22 N18.30 - Chronic kidney disease, stage 3 unspecified, N20.0 - Calculus of kidney, G47.00 - Insomnia, unspecified Phosphorus 12/25/22 N18.30 - Chronic kidney disease, stage 3 unspecified, N20.0 - Calculus of kidney, G47.00 - Insomnia, unspecified Vitamin D 25-OH Total 12/25/22 N18.30 - Chronic kidney disease, stage 3 unspecified, N20.0 - Calculus of kidney, G47.00 - Insomnia, unspecified DANIEL Reflex Titer and Pattern 12/25/22 N18.30 - Chronic kidney disease, stage 3 unspecified, N20.0 - Calculus of kidney, G47.00 - Insomnia, unspecified ANCA Vasculitides 12/25/22 N18.30 - Chronic kidney disease, stage 3 unspecified, N20.0 - Calculus of kidney, G47.00 - Insomnia, unspecified Creatinine Clearance Urine 12/25/22 N18.30 - Chronic kidney disease, stage 3 unspecified, N20.0 - Calculus of kidney, G47.00 - Insomnia, unspecified PTHI 12/25/22 N18.30 - Chronic kidney disease, stage 3 unspecified, N20.0 - Calculus of kidney, G47.00 - Insomnia, unspecified US retroperitoneal comp 12/25/22 N18.30 - Chronic kidney disease, stage 3 unspecified, N20.0 - Calculus of kidney Coding Level of Care Code New Pt Level 4 (18863) Diagnoses Stage 3a chronic kidney disease N18.31 Chronic kidney disease stage 3 subtype: stage 3a (GFR 45-59) Renal calculus, left N20.0 Essential hypertension I10 Hypertension type: essential hypertension
== END 2022-12-25 11:58 | disposition home or self-care (01) ==
PROVIDERS: PCP Internal Medicine; Referring Provider Internal Medicine; Visit Provider Internal Medicine Nephrology
DX: I12.9 Hypertensive chronic kidney disease with stage 1 through stage 4 chronic kidney disease, or unspecified chronic kidney disease (principal); N18.31 Chronic kidney disease, stage 3a; N20.0 Calculus of kidney
CPT/HCPCS: 99205

== ENCOUNTER → 2022-12-25 10:26 | Outpatient (BNVA) | payer OTHER, SELFPAY | PROVIDERS: PCP Internal Medicine; Referring Provider Internal Medicine; Visit Provider Internal Medicine Nephrology ==

== ENCOUNTER 2022-12-26 10:25 | Outpatient (AMB) | payer OTHER, SELFPAY ==
[2022-12-26 10:34] VITALS: BP 130/70; BMI 30.5
--- NOTE | 2022-12-26 10:34 | A.OFFVIS_ITS ---
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 The patient had postmenopausal bleeding, underwent hysteroscopy D&C with polypectomy and the pathology showed a benign endometrial polyp with benign endometrium with endometrial crowding and no evidence of atypia;the patient was referred to [facility] and was given 3 choices for management including: expectant management, progesterone treatment or hysterectomy, the patient elected to proceed with norethindrone treatment. Since then the patient had few weeks ago another episode of vaginal bleeding Pelvic ultrasound done few weeks ago showed the following: The uterus is anteverted, heterogeneous and measures 13.1 x 6.4 x 7.1 cm. Multiple fibroids are identified, largest as follows: Right fundus 4.2 x 4.2 x 4.9 cm, previously 4.2 x 3.8 x 4.2 cm. 2.4 x 2.1 x 1.8 cm, previously 2.0 x 2.6 x 2.4 cm. 2.2 x 0.9 x 2.4 cm, previously 1.7 x 1.2 x 1.3 cm. Previously identified 2.2 x 1.3 x 1.6 fibroid is not clearly demonstrated today. 2.2 x 2.6 x 2.8 cm fibroid may not have been fully characterized on prior exams. The endometrium is poorly visualized due to uterine fibroids and heterogeneity. Bilateral ovaries were not visualized. Small amount of fluid seen within the cervix with nabothian cysts. [facility] Medical History History of radioactive iodine thyroid ablation History of hyperparathyroidism Postoperative hypothyroidism Vitamin D deficiency Thyroid cancer Chronic kidney disease Type 2 diabetes mellitus with hyperglycemia Hypothyroid Obesity (BMI 30-39.9) Parotitis History of thyroid cancer Rheumatoid arthritis Hypercholesterolemia Hypertension Insomnia Surgical History History of hysteroscopy History of thyroid surgery History of parathyroid surgery H/O wrist surgery History of tonsillectomy History of section Family History Father CAD (coronary artery disease) Mother Dementia CAD (coronary artery disease) Sister Breast cancer Depression Social History Housing: House Are you a primary manager medicare marketing to a significant other at home: No Do you presently have visiting nurse or other home services: No Alcohol intake: current Alcohol intake frequency: does not drink Patient Tobacco Use Status: Never used Tobacco e-Cigarette/Vaping Use: Never Used Second Hand Smoke Exposure: No service: No Current occupational status: employed Current occupational exposures/hazards: No Cognitive needs: No Hearing needs: No Vision needs: Yes Female Reproductive History Menstrual Age of Menarche: 12 Date of last menstrual period: 12/09/19 Total pregnancies: 2 Full term: 2 Review of Systems Const All systems reviewed & are unremarkable except as noted in HPI and below Reports as per HPI and Reports no additional complaints Card Reports as per HPI and Reports no additional complaints Resp Reports as per HPI and Reports no additional complaints GI Reports no additional complaints Reports no additional complaints Physical Exam Const General: cooperative, healthy appearing and comfortable Chest Chest palpation & inspection: normal inspection of the chest and normal palpation of entire chest wall Breast/axilla inspection: normal inspection of the breasts and normal inspection of the axillae Breast/axilla palpation: normal palpation of the breasts, normal palpation of the axillae and no axillary lymphadenopathy Resp Effort & Inspection: normal respiratory effort Auscultation: clear to auscultation bilaterally Percussion: percussion normal Cardio Palpation: normal PMI Rate: regular rate Rhythm: regular rhythm Heart sounds: no murmurs and no rubs Peripheral pulses: Peripheral pulses 2+ throughout GI Inspection: Yes normal to inspection Palpation (GI): Soft to palpation, nontender, no guarding, not rigid and No hepatosplenomegaly present Percussion: Yes normal to percussion Auscultation: normal bowel sounds Rectal Exam - Female: deferred Assessment & Plan Assessment & Plan (1) Postmenopausal bleeding: Comment: Previous Pathology showed complex mucinous lesions Code(s): N95.0 - Postmenopausal bleeding Plan: Discussed with the patient results of the ultrasound , and it is inability to measure the endometrial stripe. Recommended to the patient that the next step is an endometrial sampling via hysteroscopy D&C possible polypectomy versus endometrial biopsy to r/o endometrial pathology including hyperplasia or cancer. All the pros and cons risks and benefits of each approach were discussed with the patient, endometrial biopsy being less invasive, office procedure with less sensitivity and inability diagnose a polyp and removal versus hysteroscopy done under anesthesia more invasive more sensitive to endometrial cancer and possibility of diagnosing and endometrial polyp with the possibility of polypectomy. All questions were answered pt verbalized understanding and decided to proceed with hysteroscopy D&C possible polypectomy/myomectomy. Discussed with the patient the procedure , all benefits and risks including but not limited to inability to complete the procedure , bleeding, infection, possible need for blood transfusion with all its risk ( HIV,syphilis, Hepatitis, anaphylaxis shock, others..), injury to bladder, rectum, possible need for laparoscopy/laparotomy or hysterectomy. The patient verbalized understanding and signed the consent. Instructions given the patient to schedule a 2 week postoperative appointment Coding Level of Care Code Est Pt Level 3 (91735) Diagnoses Postmenopausal bleeding N95.0
== END 2022-12-26 12:10 | disposition home or self-care (01) ==
LOC: HO.HWS 10:25
PROVIDERS: PCP Internal Medicine; Visit Provider Obstetrics & Gynecology
DX: N95.0 Postmenopausal bleeding (principal)
CPT/HCPCS: 99213

== ENCOUNTER → 2022-12-26 10:25 | Outpatient (BNVA) | payer OTHER, SELFPAY | PROVIDERS: PCP Internal Medicine; Visit Provider Obstetrics & Gynecology ==

== ENCOUNTER 2022-12-31 10:25 | Day surgery (SDC) | payer OTHER, SELFPAY ==
--- NOTE | 2022-12-30 09:38 | P.CONAN_ITS ---
Documented by User: Melilsa Schmitt NP 12/30/22 09:39 HPI - Anesthesia Eval Consult details Narrative: 62yo F for D&C Hysteroscopy,poss polypectomy,poss myomectomy s/p same 03/2022 with GA-LMA 3 PMFSH Active Problems Active Problems: All Active Problems (Updated 12/26/22 @ 11:01 by Omer Goodrich MD) CKD (chronic kidney disease) stage 3, GFR 30-59 ml/min (Acute) Bilateral hip pain (Acute) Renal calculus, left (Acute) Right shoulder pain (Acute) Vitamin B12 deficiency (Acute) Sinus congestion (Acute) Hypercalcemia (Acute) Osteopenia (Acute) Hyperparathyroidism (Acute) Cough (Acute) Impacted cerumen, left ear (Acute) Postmenopausal bleeding (Acute) Cough (Acute) Dyspnea (Acute) Acute bronchitis (Acute) Uterine myoma (Acute) History of hyperparathyroidism (Acute) Postoperative hypothyroidism (Acute) Vitamin D deficiency (Acute) Chronic kidney disease (Acute) History of thyroid cancer (Acute) Type 2 diabetes mellitus with hyperglycemia (Acute) Obesity (BMI 30-39.9) (Acute) Rheumatoid arthritis (Acute) Hypercholesterolemia (Acute) Hypertension (Acute) Insomnia (Acute) Past Medical History Medical History History of radioactive iodine thyroid ablation History of hyperparathyroidism Postoperative hypothyroidism Vitamin D deficiency Thyroid cancer Chronic kidney disease Type 2 diabetes mellitus with hyperglycemia Hypothyroid Obesity (BMI 30-39.9) Parotitis History of thyroid cancer Rheumatoid arthritis Hypercholesterolemia Hypertension Insomnia Family History Family History Father CAD (coronary artery disease) Mother Dementia CAD (coronary artery disease) Sister Breast cancer Depression Family history of problems with anesthesia: No Surgical History Surgical History History of hysteroscopy History of thyroid surgery History of parathyroid surgery H/O wrist surgery History of tonsillectomy History of section History of Problems with Anesthesia: No Social History Housing: House Are you a primary pediatric critical care nurse to a significant other at home: No Do you presently have visiting nurse or other home services: No Alcohol intake: current Alcohol intake frequency: does not drink Patient Tobacco Use Status: Never used Tobacco e-Cigarette/Vaping Use: Never Used Second Hand Smoke Exposure: No service: No Current occupational status: employed Current occupational exposures/hazards: No Cognitive needs: No Hearing needs: No Vision needs: Yes Meds Allergies Allergy/AdvReac Type Severity Reaction Status Date / Time ciprofloxacin [Cipro] Allergy Unknown rash Verified 12/31/22 10:55 amlodipine AdvReac Intermediate swelling Verified 12/31/22 10:55 Home Medications Medication Instructions Recorded Confirmed Last Taken Type methotrexate sodium 2.5 mg tablet 10 mg PO QWEEK 12/07/21 07/29/22 Unknown History misoprostol 200 mcg tablet 200 mcg PO BID 05/29/22 07/29/22 Unknown History norethindrone acetate 5 mg tablet 5 mg PO DAILY 05/29/22 07/29/22 Unknown History Exam Pertinent Lab Results Pertinent Lab Results: Laboratory Tests 05/31/22 05/31/22 10/10/22 08:10 08:10 09:51 WBC Hgb Hct Plt Count Sodium 138 Potassium 4.7 Chloride 115 H Carbon Dioxide 15 L BUN 21 H Creatinine 1.74 H 10/10/22 09:51 WBC 5.2 Hgb 14.2 Hct 42.0 Plt Count 222 Sodium Potassium Chloride Carbon Dioxide BUN Creatinine Assessment and Plan Assessment Anesthesia Assessment: Chart Reviewed Final Anesthetic Review Family History of Problems with Anesthesia: No History of Problems with Anesthesia: No Documented by User: Ian Card MD 01/02/23 16:29 HPI - Anesthesia Eval Consult details Narrative: 62yo F for D&C Hysteroscopy,poss polypectomy,poss myomectomy funtional status greater than 4 mets Patient has a slight cough non productive , not getting worse , denies any fever , sob , or any other symptoms . s/p same 03/2022 with GA-LMA 3 PMFSH Past Medical History Medical History History of radioactive iodine thyroid ablation History of hyperparathyroidism Postoperative hypothyroidism Vitamin D deficiency Thyroid cancer Chronic kidney disease Type 2 diabetes mellitus with hyperglycemia Hypothyroid Obesity (BMI 30-39.9) Parotitis History of thyroid cancer Rheumatoid arthritis Hypercholesterolemia Hypertension Insomnia Family History Family History Father CAD (coronary artery disease) Mother Dementia CAD (coronary artery disease) Sister Breast cancer Depression Surgical History Surgical History History of hysteroscopy History of thyroid surgery History of parathyroid surgery H/O wrist surgery History of tonsillectomy History of section Social History Housing: House Are you a primary pediatric critical care nurse to a significant other at home: No Do you presently have visiting nurse or other home services: No Alcohol intake: current Alcohol intake frequency: does not drink Patient Tobacco Use Status: Never used Tobacco e-Cigarette/Vaping Use: Never Used Second Hand Smoke Exposure: No service: No Current occupational status: employed Current occupational exposures/hazards: No Cognitive needs: No Hearing needs: No Vision needs: Yes Meds Allergies Allergy/AdvReac Type Severity Reaction Status Date / Time ciprofloxacin [Cipro] Allergy Unknown rash Verified 12/31/22 10:55 amlodipine AdvReac Intermediate swelling Verified 12/31/22 10:55 Home Medications Medication Instructions Recorded Confirmed Last Taken Type methotrexate sodium 2.5 mg tablet 10 mg PO QWEEK 12/07/21 07/29/22 Unknown History misoprostol 200 mcg tablet 200 mcg PO BID 05/29/22 07/29/22 Unknown History norethindrone acetate 5 mg tablet 5 mg PO DAILY 05/29/22 07/29/22 Unknown History Exam Airway Mallampati Class: III Neck ROM: Full Loose/Missing/Broken Teeth: Yes Assessment and Plan Assessment Anesthesia Assessment: Anesthesia Plan Discussed Final Anesthetic Review NPO: Yes ASA Class: III Final Preanesthetic Review: Meds/Allgs Chart Reviewed, Consent Obtained/Reviewed and Anes Risks/Benef Reviewed Patient Risk: Intermediate Procedure Risk: Intermediate Anesthetic Plan Anesthetic Plan: GA and Agree w/ Assess. and Plan Disposition: Standard PACU
[2022-12-31] VITALS (7 sets, daily range): BP systolic 106–141; BP diastolic 55–62; PULSE 82–93; RESP 16–18; TEMP 36.2–36.6; O2SAT 96–100; BMI 30.6
[2022-12-31] MEDS: Lactated Ringers 1,000 ML 100 ML IVCONT (10:44)
[2022-12-31 11:02] LABS: Glucose, Whole Blood 129 mg/dL (60-115)
--- NOTE | 2022-12-31 11:57 | MHC.SHP ---
Pre-Procedural Eval Section A Date of Service: 12/31/22 The patient is an INPATIENT: No Changes since office visit: No Cold of Flu in the past 2 weeks, No New Medical Problems, No Changes in Medication and No Patient answered all questions The History & Physical has been completed within 30 days and I have reviewed it.: Yes Section B Chief Complaint: Postmenopausal bleeding Allergies: Allergies Allergy/AdvReac Type Severity Reaction Status Date / Time ciprofloxacin [Cipro] Allergy Unknown rash Verified 12/31/22 10:55 amlodipine AdvReac Intermediate swelling Verified 12/31/22 10:55 Plan Diagnosis/Plan: Unchanged I have reviewed the history and physical and performed a pertinent physical examination on my patient. No changes have occurred unless specified. Time Spent With Patient Time: Total time managing care of this patient today ____ minutes.
--- NOTE | 2022-12-31 12:44 | PM.OP ---
Brief Operative Note Date of Service: 12/31/22 Pre-op diagnosis: Postmenopausal bleeding Post-op diagnosis: same (Normal endometrial cavity) Procedure: Hysteroscopy D&C, Polypectomy Surgeon: Omer Goodrich MD Anesthesia: GLMA Was an Provider Scribe used for this Procedure?: No Estimated blood loss (mL): 0 Pathology: other (Endometrial Scrapping.) Condition: stable Disposition: PACU
--- NOTE | 2022-12-31 12:45 | W.PM.OPN ---
Operative Note Operative Note Date of Service: 12/31/22 Narrative: Preop Diagnosis: Post Menopausal bleeding Operation: Diagnostic Hysteroscopy, Dilataion & Curettage Post Op Diagnosis: Normal endometrial cavity QBL: Minimal Anesthesia: GLMA Surgeon: Omer Goodrich MD Freight Manager: None Complication: None Pathology: Endometrial Scrapings Procedure: The patient was put in the dorsal lithotomy position, scrubbed, and draped in the usual manner. A sterile speculum was inserted in the patient's vagina. The anterior lip of the cervix was grasped with a single tooth tenaculum. The cervix was dilated up to 5 mm, then the scope was inserted in the patient's uterus. Inspection revealed Normal endometrial cavity. The Myosure Reach device was used; the scope was removed from the endometrial cavity , sharp curettings was carried on with minimal to moderate amount of tissues retrieved. At the end of the procedure, all instruments were taken out of the patient uterine and vaginal cavity. The single tooth tenaculum was removed and homeostasis was assured using pressure,. The patient tolerated the procedure well and was transferred to the PACU in a stable condition.
== END 2022-12-31 14:19 | disposition home or self-care (01) ==
PROVIDERS: PCP Internal Medicine; Visit Provider Obstetrics & Gynecology
PROC: 0UDB8ZZ Extraction of Endometrium, Via Natural or Artificial Opening Endoscopic (ICD-10-PCS; CPT 58558; principal; 2022-12-31 12:00)
DX: N95.0 Postmenopausal bleeding (principal); E89.0 Postprocedural hypothyroidism; Z85.850 Personal history of malignant neoplasm of thyroid; E55.9 Vitamin D deficiency, unspecified; E78.00 Pure hypercholesterolemia, unspecified; I12.9 Hypertensive chronic kidney disease with stage 1 through stage 4 chronic kidney disease, or unspecified chronic kidney disease; E11.22 Type 2 diabetes mellitus with diabetic chronic kidney disease; N18.30 Chronic kidney disease, stage 3 unspecified; Z79.84 Long term (current) use of oral hypoglycemic drugs; M06.9 Rheumatoid arthritis, unspecified; Z88.1 Allergy status to other antibiotic agents; Z88.8 Allergy status to other drugs, medicaments and biological substances
CPT/HCPCS: 58558; 82947; 88305; J1100; J2250; J2405; J2704; J3010

== ENCOUNTER → 2022-12-31 10:25 | Outpatient (BNV) | payer OTHER, SELFPAY | PROVIDERS: PCP Internal Medicine; Visit Provider Obstetrics & Gynecology | DX: N95.0 Postmenopausal bleeding (principal) | CPT/HCPCS: 58558 ==

== ENCOUNTER 2023-01-09 10:38 | Outpatient (AMB) | payer OTHER, SELFPAY ==
--- NOTE | 2023-01-09 10:39 | MHC.PC.OV ---
Intake Visit Reasons: Sinus Infection Allergies ciprofloxacin [Cipro] Allergy (Unknown, Verified 01/09/23 10:39) rash amlodipine Adverse Reaction (Intermediate, Verified 01/09/23 10:39) swelling Medication List - Last Reconciled 01/09/23 by Barbara Victor MD blood sugar diagnostic (Media BattlesTouch Verio test strips) test once daily cholecalciferol (vitamin D3) 125 mcg PO .2x /week diclofenac sodium 37.5 mg (1/2 x 75 mg) PO BID doxycycline hyclate 100 mg PO BID 7 days empagliflozin (Jardiance) 10 mg PO DAILY fluticasone propionate 50 mcg/actuation (Flonase Allergy Relief) 2 sprays intranasal DAILY folic acid 1 mg PO DAILY glimepiride 2 mg PO DAILY 90 days levothyroxine 112 mcg PO DAILY 90 days lisinopril 10 mg PO DAILY metformin 500 mg PO BID methotrexate sodium 10 mg PO QWEEK misoprostol 200 mcg PO BID norethindrone acetate 5 mg PO DAILY simvastatin 10 mg PO BEDTIME sitagliptin phosphate (Januvia) 50 mg PO DAILY 90 days zolpidem (Ambien) 10 mg PO BEDTIME PRN 90 days Tobacco use date assessed: 12/03/22 Dental Screening Dental Screen Date: 01/09/23 Did you have a dental visit in the last 12 months?: Yes Did you have a dental problem in the last 6 months where you did not have access to dental care?: No Was dental information given to patient?: Patient has dentist HPI Sinus Infection HPI Details 62-year-old female with multiple medical problems patient has a history of thyroid cancer status post thyroidectomy now with postoperative hypothyroidism diabetes mellitus rheumatoid arthritis hypertension hypercholesterolemia chronic kidney disease hyperparathyroidism coming in for follow-up through Telehealth. Patient has an acute problem.cold, 2 weeks congestion and LEIJA, cough, , no sob- had a endometrial biopsy under gyne. . Patient has been congested and concern about sinus problems. [facility] Medical History History of radioactive iodine thyroid ablation History of hyperparathyroidism Postoperative hypothyroidism Vitamin D deficiency Thyroid cancer Chronic kidney disease Type 2 diabetes mellitus with hyperglycemia Hypothyroid Obesity (BMI 30-39.9) Parotitis History of thyroid cancer Rheumatoid arthritis Hypercholesterolemia Hypertension Insomnia Surgical History History of hysteroscopy History of thyroid surgery History of parathyroid surgery H/O wrist surgery History of tonsillectomy History of section Family History Father CAD (coronary artery disease) Mother Dementia CAD (coronary artery disease) Sister Breast cancer Depression Social History Housing: House Are you a primary intensive care anaesthetist to a significant other at home: No Do you presently have visiting nurse or other home services: No Alcohol intake: current Alcohol intake frequency: does not drink Patient Tobacco Use Status: Never used Tobacco e-Cigarette/Vaping Use: Never Used Second Hand Smoke Exposure: No service: No Current occupational status: employed Current occupational exposures/hazards: No Cognitive needs: No Hearing needs: No Vision needs: Yes Female Reproductive History Menstrual Age of Menarche: 12 Questionnaire PHQ-9 Over the last 2 weeks, how often have you been bothered by any of the following problems? 1. Little interest or pleasure in doing things: not at all 2. Feeling down, depressed, or hopeless: not at all 3. Trouble falling or staying asleep, or sleeping too much: not at all 4. Feeling tired or having little energy: not at all 5. Poor appetite or overeating: not at all 6. Feeling bad about yourself - or that you are a failure or have let yourself or your family down: not at all 7. Trouble concentrating on things, such as reading the newspaper or watching television: not at all 8. Moving or speaking so slowly that other people could have noticed. Or the opposite - being so fidgety or restless that you have been moving around a lot more than usual: not at all 9. Thoughts that you would be better off or of hurting yourself in some way: not at all Total score: 0 Depression Screening Interpretation: Negative Depression Screening Done: Yes Source: Developed by Drs. Miah Moreno, Katia Smith, Junior Alejo and colleagues, with an educational beth from [employer]. Thrive Questionnaire Date Thrive assessed: 02/20/22 AUDIT C Alcohol Use Questionnaire (AUDIT-C) 1. How often do you have a drink containing alcohol?: Monthly or less 2. How many drinks containing alcohol do you have on a typical day when you are drinking?: 1 or 2 3. How often do you have six or more drinks on one occasion?: Never Total Score: 1 JAIRO-7 AMB Questionnaire JAIRO-7 Date JAIRO - 7 assessed: 02/20/22 Source: Developed by Drs. Miah Moreno, Katia Smith, Junior Alejo and colleagues, with an educational beth from [employer]. Physical exam (Primary Care) Tobacco/Smoking Status: Tobacco use Status Tobacco use date assessed 12/03/22 01/09/23 10:40 Patient Tobacco Use Status Never used Tobacco 01/09/23 10:40 e-Cigarette/Vaping Use Never Used 01/09/23 10:40 PHQ-9: PHQ-9 Score PHQ-9: Total score 0 01/09/23 10:40 Depression Screening Interpretation: Negative Thrive Assessment: Date of Thrive Assessment Date Thrive assessed 02/20/22 01/09/23 10:40 Telehealth Telehealth Location of provider rendering services: practice address Location of patient: address on file Patient Identification confirmed using: Name, : Yes Telehealth method: voice only Patient verbally consented to treatment: Yes Patient verbally consented to billing insurance company: Yes Patient informed of any privacy concerns related to visit: Yes Minutes spent on Phone/Video with Pt.: 15 Assessment and Plan Assessment & Plan (1) Sinus congestion: Code(s): R09.81 - Nasal congestion Plan: Augmentin not given due to interaction with methotrexate. Alternative of doxycycline sent as well as nasal spray Medications: New doxycycline hyclate 100 mg PO BID 14 caps 0RF 7 days R09.81 - Nasal congestion fluticasone propionate 50 mcg/actuation (Flonase Allergy Relief) administer into each nostril 2 sprays intranasal DAILY 16 grams 1RF R09.81 - Nasal congestion Coding Level of Care Code Tele Est Pt Level 3 (86083) Diagnoses Sinus congestion R09.81
== END 2023-01-09 13:29 | disposition home or self-care (01) ==
LOC: HO.HMGH 10:38
PROVIDERS: PCP Internal Medicine; Visit Provider Internal Medicine
DX: R09.81 Nasal congestion (principal)
CPT/HCPCS: 99213

== ENCOUNTER 2023-01-14 07:43 | Outpatient (AMB) | payer OTHER, SELFPAY ==
--- NOTE | 2023-01-14 07:51 | MHC.OFFVIS ---
Intake Vital Signs 01/14/23 07:55 Height 5 ft 3 in Weight 174 lb BMI 30.8 BP 110/60 Intake Visit Reasons: post op Process Description Writer Required: No Information Interpreted: non-clinical & clinical Accompanied by: Self / Same As Patient Allergies ciprofloxacin [Cipro] Allergy (Unknown, Verified 01/14/23 07:56) rash amlodipine Adverse Reaction (Intermediate, Verified 01/14/23 07:56) swelling Post menopausal: Yes HPI HPI Comments History of Present Illness Details The patient is presenting post hysteroscopy D&C no complaints minimal vaginal bleeding no feverishness chills or abdominal pain. The pathology showed the following: Endometrium, curettage: - Superficial fragments of benign endometrium with patchy mucinous metaplasia/lower uterine segment features. - Fragments with features of endometrial polyp. - No atypia identified The patient had an episode of postmenopausal bleeding in 04/04, underwent hysteroscopy D&C with polypectomy and the pathology showed a benign endometrial polyp with benign endometrium with crowded glands and no evidence of atypia;the patient was referred to Gyne Onc at [facility] and was given 3 choices for management including: expectant management, progesterone treatment or hysterectomy, the patient elected to proceed with norethindrone treatment. She is scheduled for another up appointment at [facility] in the coming week [facility] Medical History History of radioactive iodine thyroid ablation History of hyperparathyroidism Postoperative hypothyroidism Vitamin D deficiency Thyroid cancer Chronic kidney disease Type 2 diabetes mellitus with hyperglycemia Hypothyroid Obesity (BMI 30-39.9) Parotitis History of thyroid cancer Rheumatoid arthritis Hypercholesterolemia Hypertension Insomnia Surgical History History of hysteroscopy History of thyroid surgery History of parathyroid surgery H/O wrist surgery History of tonsillectomy History of section Family History Father CAD (coronary artery disease) Mother Dementia CAD (coronary artery disease) Sister Breast cancer Depression Social History Housing: House Are you a primary neonatal critical care nurse to a significant other at home: No Do you presently have visiting nurse or other home services: No Alcohol intake: current Alcohol intake frequency: does not drink Patient Tobacco Use Status: Never used Tobacco e-Cigarette/Vaping Use: Never Used Second Hand Smoke Exposure: No service: No Current occupational status: employed Current occupational exposures/hazards: No Cognitive needs: No Hearing needs: No Vision needs: Yes Female Reproductive History Menstrual Age of Menarche: 12 Review of Systems Const All systems reviewed & are unremarkable except as noted in HPI and below Reports as per HPI and Reports no additional complaints GI Reports no additional complaints Reports no additional complaints Physical Exam Vital Signs: Last Vital Signs BP 110/60 01/14/23 07:55 BMI result Body Mass Index 30.8 Assessment & Plan Assessment & Plan (1) Postmenopausal bleeding: Comment: Office EMB Pathology showed complex mucinous lesions could not rule out hyperplasia D&C pathology benign polyp with normal inactive endometrium with no hyperplasia nor malignancy Code(s): N95.0 - Postmenopausal bleeding Plan: Discussed with the patient as of the pathology, discussed the case with Dr. Palmer in pathology regard the findings of mucinous metaplasia on D&C pathology compared to the findings of gland crowding seen on previous EMB pathology in 04/04, no evidence of focal on the most recent pathology but recommended repeat EMB in near future. will await Gyne Onc recommendation for further management. Recommended patient to schedule EMB in 6 months in case she chooses to stay on progesterone and not to go for surgical management after discussion with the environmental field office manager oncologist. Instructions given the patient to call with Dr. Munoz, environmental field office manager oncologist recommendation . All questions answered, the patient verbalized understanding. Coding Level of Care Code Est Pt Level 3 (52004) Diagnoses Postmenopausal bleeding N95.0
[2023-01-14 07:55] VITALS: BP 110/60; BMI 30.8
== END 2023-01-14 10:18 | disposition home or self-care (01) ==
PROVIDERS: PCP Internal Medicine; Visit Provider Obstetrics & Gynecology
DX: N95.0 Postmenopausal bleeding (principal)
CPT/HCPCS: 99213

== ENCOUNTER → 2023-01-14 07:43 | Outpatient (BNVA) | payer OTHER, SELFPAY | PROVIDERS: PCP Internal Medicine; Visit Provider Obstetrics & Gynecology ==

== ENCOUNTER 2023-02-05 10:00 | Outpatient (REF) | payer OTHER, SELFPAY ==
--- NOTE | ~2023-02-05 | US_ITS ---
EXAMINATION: US RETROPERITONEAL COMPLETE (RENAL) CLINICAL INFORMATION: Chronic kidney disease, stage 3 unspecified. COMPARISON: Ultrasound kidneys and bladder 01/31/2020. CT abdomen and pelvis without and with contrast 05/18/2018. TECHNIQUE: Real-time imaging of the kidneys and bladder. FINDINGS: RIGHT KIDNEY: 8.9 x 3.7 x 4.1 cm (SAG x AP x TRV). The kidney is normal in contour and echogenicity. Renal cortical thickness is normal. No calculi or focal parenchymal lesions. No hydronephrosis. LEFT KIDNEY: 8.8 x 3.9 x 2.8 cm (SAG x AP x TRV). The kidney is normal in contour and echogenicity. Renal cortical thickness is normal. No calculi or focal parenchymal lesions. No hydronephrosis. BLADDER: Well distended and normal. Bilateral ureteral jets are demonstrated. Prevoid bladder volume is 246 mL. Postvoid bladder volume is 4.5 mL. US/US retroperitoneal comp IMPRESSION: Unremarkable sonographic imaging of the kidneys and bladder.
== END 2023-02-05 10:01 | disposition home or self-care (01) ==
LOC: HO.US 10:00
PROVIDERS: PCP Internal Medicine; Visit Provider Internal Medicine Nephrology
DX: N20.0 Calculus of kidney (principal); N18.30 Chronic kidney disease, stage 3 unspecified
CPT/HCPCS: 76770

== ENCOUNTER 2023-02-25 14:00 | Outpatient (RCR) | payer OTHER, SELFPAY ==
--- NOTE | 2023-01-24 08:44 | MHC.PT.EP ---
[facility] [place] Office [place] Office [place] Office [address] Dipesh Doherty [address] [phone] F: [phone] F: [phone] F: [phone] F: [phone] Physical Therapy Plan of Care Date of Evaluation: 01/24/23 Date of Surgery: N/A Diagnosis: B hip pain (RL) Assessment: pt is a 62 y/o female presenting to physical therapy w/ referring diagnosis of bilateral hip pain. pt's signs and symptoms consistent w/ hip bursitis. Impairments include pain, decreased range of motion, decreased strength, impaired functional mobility, impaired postural awareness, and altered ambulation mechanics. pt is a good candidate for skilled PT due to age, potential remediation of impairments, typical disease/condition progression and prognosis, comorbidities, and motivation. pt would benefit from skilled PT intervention to provide a tailored strengthening and stretching exercise program, functional training, gait training, postural re-training, neuromuscular re-education, modalities as needed for pain, equipment safety demonstration. Frequency and Duration: The patient will be seen 2x/wk for 4 wks Short Term Goals: pt will be I w/ HEP to promote self-management of condition. pt will improve B hip abduction strength by 1 MMT to reduce Trendelenburg gait. Fabrication And Layout Craftsman Goals: pt will report a statistically significant improvement self-reported outcome measure, LEFI, to promote return to PLOF. pt will improve Treatment Plan: Modalities to reduce pain, spasms and effusion. Manual therapy to restore motion and function. Therapeutic exercise to improve strength and flexibility. Neuromuscular re-education for posture and balance. Therapeutic activities to return to functional activities of daily living. Electronically signed by: Dorothy Adkins PT, DPT Please sign and return to therapist. Thank you for your referral.
--- NOTE | 2023-04-14 16:01 | MHC.PT.DC ---
[facility] [place] Office [place] Office [place] Office [address] Dipesh Doherty [address] [phone] F: [phone] F: [phone] F: [phone] F: [phone] Physical Therapy Discharge Report Diagnosis: B hip pain (RL) Date of Surgery: N/A Date of Evaluation: 01/24/23 Date of Discharge: 04/14/23 Treatments to Date: 7 Cancellations to Date: 1 No Shows to Date: 1 Discharge Status: Improved Function Independent with HEP Recommend MD Follow-up Discharge Summary: The patient overall was reporting little improvement with physical therapy. She is independent with her home exercise program. She is discharged from this physical therapy plan of care. Electronically signed by: Dorothy Adkins PT, DPT Please sign and return to therapist. Thank you for your referral.
== END 2023-04-14 16:01 | disposition home or self-care (01) ==
LOC: HO.PT 14:00
PROVIDERS: PCP Internal Medicine; Visit Provider Internal Medicine
DX: M25.551 Pain in right hip (principal); M25.552 Pain in left hip
CPT/HCPCS: 97110; 97162; 97530

== ENCOUNTER 2023-02-26 10:05 | Outpatient (AMB) | payer OTHER, SELFPAY ==
[2023-02-26 10:07] VITALS: BP 124/86; PULSE 89; O2SAT 98; BMI 29.2
--- NOTE | 2023-02-26 10:07 | HO.NEPHOV_ITS ---
HPI HPI Comments History of Present Illness Details I had the privilege of seeing Joanna in follow up of care of for her CKD. She had seen a honing machine operator tool in [facility] where she follows up with her Computer Equipment Repairer for her Rheumatoid Arthritis. She has long standing history of diabetes mellitus and hypertension with no H/O significant proteinuria in addition to her other medical issues including hypothyroidism (postoperative from thyroid cancer), hypercholesterolemia, osteoarthritis as well as primary hyperparathyroidism status post parathyroidectomy.She has no hypoglycemic episodes.Her serum creatinine had been around 1.4 for some time but has progressed one time to over 2 but lately has been around 1.7. She has H/O renal stones. She regularly takes NSAID's for her joint issues while she is on ACEI. She is on MTX as well as Jardiance. She denied any CAD, CVA, VENTURA, PAD or CHF. She denies any hematuria but has H/O renal stones. She tries to keep herself hydrated. She has no nausea, vomiting, diarrhea, SOB, PND, orthopnea , pedal edema or new skin rashes. Her last serum creatinine was 1.74 [facility] Medical History History of radioactive iodine thyroid ablation History of hyperparathyroidism Postoperative hypothyroidism Vitamin D deficiency Thyroid cancer Chronic kidney disease Type 2 diabetes mellitus with hyperglycemia Hypothyroid Obesity (BMI 30-39.9) Parotitis History of thyroid cancer Rheumatoid arthritis Hypercholesterolemia Hypertension Insomnia Surgical History History of hysteroscopy History of thyroid surgery History of parathyroid surgery H/O wrist surgery History of tonsillectomy History of section Family History Father CAD (coronary artery disease) Mother Dementia CAD (coronary artery disease) Sister Breast cancer Depression Social History Housing: House Are you a primary critical care physician assistant to a significant other at home: No Do you presently have visiting nurse or other home services: No Alcohol intake: current Alcohol intake frequency: does not drink Patient Tobacco Use Status: Never used Tobacco e-Cigarette/Vaping Use: Never Used Second Hand Smoke Exposure: No service: No Current occupational status: employed Current occupational exposures/hazards: No Cognitive needs: No Hearing needs: No Vision needs: Yes Female Reproductive History Menstrual Age of Menarche: 12 Vital Signs 02/26/23 10:07 Height 5 ft 3 in Weight 165 lb BMI 29.2 BP 124/86 Blood Pressure Location Lt brachial Position Sitting Pulse 89 Pulse Source Pulse Oximeter Pulse Oximetry (%) 98 Oxygen Delivery Method Room Air Physical Exam Vital Signs: Last Vital Signs Pulse 89 02/26/23 10:07 BP 124/86 02/26/23 10:07 Pulse Ox 98 02/26/23 10:07 Oxygen Delivery Method Room Air 02/26/23 10:07 BMI result Body Mass Index 29.2 Const General: comfortable and no acute distress Orientation/consciousness: patient oriented x3 HEENT Head: Yes normocephalic Mouth: Normal oral and palatal mucosa present Eyes EOM: EOMs intact bilaterally Neck Neck: Yes supple Resp Auscultation: clear to auscultation bilaterally Cardio Jugular venous distension: no JVD Rate: regular rate GI Palpation (GI): Soft to palpation Auscultation: normal bowel sounds General: Yes no CVA tenderness Back/Spine/Pelvis Back: no CVA tenderness Skin General skin exam: no rashes or lesions noted Neuro General: patient oriented x3 and moves all extremities Extrem General: Yes no pedal edema Assessment & Plan Assessment & Plan (1) CKD (chronic kidney disease) stage 3, GFR 30-59 ml/min: Code(s): N18.30 - Chronic kidney disease, stage 3 unspecified Qualifiers: Chronic kidney disease stage 3 subtype: stage 3a (GFR 45-59) Qualified Code(s): N18.31 - Chronic kidney disease, stage 3a (2) Hypertension: Code(s): I10 - Essential (primary) hypertension Qualifiers: Hypertension type: essential hypertension Qualified Code(s): I10 - Essential (primary) hypertension Plan Joanna has CKD 3 likely from vascular disease on a backdrop of DM and HTN. She has RA and is on MTX as well as NSAID's. She takes ACEI as well as Jardiance. She may be having progression of her renal disease. She has no H/O proteinuria. Her BP has been at goal. Her A1c is up . She needs to maintain good hydration. I may cut back on her ACEI if her serum creatinine rises. Imaging reviewed and further W/U has been ordered. She may need a renal biopsy which I plan to continue to discuss further with her with time. Further management is pending evolving data. Orders: Orders Immunofixation Pnl, Serum Today N18.30 - Chronic kidney disease, stage 3 unspecified Phosphorus Today N18.30 - Chronic kidney disease, stage 3 unspecified Calcium Today N18.30 - Chronic kidney disease, stage 3 unspecified Vitamin D 25-OH Total Today N18.30 - Chronic kidney disease, stage 3 unspecified Complete Blood Count Auto Diff Today N18.30 - Chronic kidney disease, stage 3 unspecified Parathyroid Hormone Intact Today N18.30 - Chronic kidney disease, stage 3 unspecified Coding Level of Care Code Est Pt Level 3 (52274) Diagnoses Stage 3a chronic kidney disease N18.31 Chronic kidney disease stage 3 subtype: stage 3a (GFR 45-59) Essential hypertension I10 Hypertension type: essential hypertension Results Reviewed Nephrology Results: No Data to Display
== END 2023-02-26 10:37 | disposition home or self-care (01) ==
PROVIDERS: PCP Internal Medicine; Visit Provider Internal Medicine Nephrology
DX: N18.31 Chronic kidney disease, stage 3a (principal); I10 Essential (primary) hypertension
CPT/HCPCS: 99213

== ENCOUNTER → 2023-02-26 10:05 | Outpatient (BNVA) | payer OTHER, SELFPAY | PROVIDERS: PCP Internal Medicine; Visit Provider Internal Medicine Nephrology ==

== ENCOUNTER 2023-02-27 07:24 | Outpatient (REF) | payer OTHER, SELFPAY ==
[2023-02-27 07:55] LABS: MANUAL DIFF FLAG NO
[2023-02-27 08:09] LABS: Basophils Percent Auto 0.6 % (0-2); Eosinophils Absolute Auto 0.2 X10*3/uL (0.0-0.4); Eosinophils Percent Auto 2.9 % (0-4); Hematocrit 47.4 % (37.0-47.0); Hemoglobin 15.7 g/dl (12.0-16.0); Imm Gran Abs Auto 0.02 X10*3/uL (0.00-0.03); Imm Gran Pct Auto 0.3 % (0.0-0.4); Lymphocytes Percent Auto 13.9 % (20-40); Mean Corpuscular HGB Conc 33.1 g/dl (31.0-35.0); Mean Corpuscular Volume 96.5 fL (80.0-98.0); Mean Platelet Volume 8.9 fL (9.4-12.3); Monocytes Absolute Auto 0.6 X10*3/uL (0.1-1.2); Monocytes Percent Auto 8.4 % (2-11); Neutrophils Absolute Auto 5.3 x10*3/uL (2.0-8.3); Neutrophils Percent Auto 73.9 % (45-73); Platelet Count 265 X10*3/uL (160-400); Red Blood Count 4.91 X10*6/uL (4.20-5.50); Red Cell Distribution Width 12.9 % (11.0-16.0); White Blood Count 7.2 X10*3/uL (4.8-10.8)
[2023-02-27 08:13] LABS: Appearance Urine Clear; Color Urine Yellow; Glucose Urine UA >=1000 mg/dL (Negative); Leukocyte Esterase Urine Negative (Negative); Nitrite Urine Negative (Negative); Specific Gravity - Urine >= 1.030 (1.005-1.025); UMIC TRIGGER UA YES; Urine Blood Negative (Negative); Urine Ketones Trace mg/dL (Negative); Urine Protein Negative (Neg-Trace)
[2023-02-27 08:36] LABS: Alanine Aminotransferase 20 U/L (0-31); Aspartate Amino Transferase 16 U/L (5-31); C Reactive Protein 1.01 mg/dL (< or = 0.50); Estimated Glomerular Filt Rate 30
[2023-02-27 08:43] LABS: Anion Gap 13 (12-20); Blood Urea Nitrogen 26 mg/dL (9-16); Carbon Dioxide 20 mmol/L (22-29); Chloride 109 mmol/L (96-108); Estimated Glomerular Filt Rate 31; Phosphorus 3.5 mg/dL (2.7-4.5); Potassium 4.5 mmol/L (3.3-5.1); Sodium 137 mmol/L (135-145)
[2023-02-27 08:44] LABS: Parathyroid Hormone Intact 7.8 pg/mL (8.7-77.1)
[2023-02-27 08:52] LABS: Bacteria Urine None Seen (None Seen); Granular Casts Urine Present; RBC Urine 0-2 /HPF (0-2); WBC Urine 0-5 /HPF (0-5)
[2023-02-27 08:59] LABS: Erythrocyte Sedimentation Rate 11 MM/HR (0-20); Vitamin D 25-OH Total 38.2 ng/mL (>30)
[2023-02-27 09:24] LABS: Protein/Creatinine Ratio, Ur 0.13 (<0.2); Total Protein Urine Random 13 mg/dL (<12)
[2023-03-01 11:44] LABS: Anti Nuclear Antibody Screen NEGATIVE (NEGATIVE)
[2023-03-04 17:33] LABS: Myeloperoxidase Antibody <1.0 AI; Proteinase 3 PR3 Antibodies <1.0 AI
[2023-03-05 12:08] LABS: IgA 78 mg/dL (70-320); IgG 901 mg/dL (600-1540); IgM 46 mg/dL (50-300)
== END 2023-02-27 07:25 | disposition home or self-care (01) ==
LOC: HO.LAB 07:24
PROVIDERS: Internal Medicine Rheumatology; Absent Provider Internal Medicine Endocrinology, Diabetes & Metabolism; PCP Internal Medicine; Visit Provider Internal Medicine Nephrology
DX: M06.9 Rheumatoid arthritis, unspecified (principal); N18.30 Chronic kidney disease, stage 3 unspecified; N20.0 Calculus of kidney; G47.00 Insomnia, unspecified
CPT/HCPCS: 36415; 80051; 81001; 82306; 82310; 82565; 82570; 82784; 83970; 84100; 84156; 84450; 84460; 84520; 85025; 85652; 86021; 86038; 86140; 86334

== ENCOUNTER 2023-03-06 07:57 | Outpatient (AMB) | payer OTHER, SELFPAY ==
--- NOTE | 2023-03-06 08:00 | A.OFFVIS_ITS ---
Intake Vital Signs 03/06/23 08:01 Height 5 ft 3 in Weight 164 lb BMI 29.0 BP 114/62 Blood Pressure Location Lt brachial Position Sitting Pulse 85 Pulse Source Pulse Oximeter Intake Visit Reasons: F/U thyroid cancer/CONFIRMED Intake Note: Patient previously seen by Dr. Freedman on 07/29/22. Patient present today for Thyroid cancer follow up. Charge Histotechnologist Required: No Accompanied by: Self / Same As Patient Allergies ciprofloxacin [Cipro] Allergy (Unknown, Verified 03/06/23 08:06) rash amlodipine Adverse Reaction (Intermediate, Verified 03/06/23 08:06) swelling HPI HPI Comments History of Present Illness Details 62 YO Female with a PMHx of PTC s/p a total thyroidectomy 04/2016 and I131 ablation with 90 mCi 07/2016 with recurrence in 03/29 LN 11/09/2021, now S/P I131 ablation with 150 mCi 02/2022 who is seen in F/U. Patient last saw Dr. Freedman on 07/29/2022 History is obtained through record review. She was previously following with [facility] Endocr[facility]ology. 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 She subsequently underwent I131 ablation with 90 millicurries I131 07/2016. Post-treatment WBS at that time revealed uptake within the thyroid bed only. Per reports, her stimulated TG remained between 1-10, indicating an indeterminat response. She had routine yearly surveillance US for cervical lymph node mapping. It is unclear of these results, but she does report that she was found to have an abnormal cervical lymph node in the R neck as of spring and underwent FNA biopsy of this which was positive for metastatic disease. She t hen underwent R lateral neck dissection with Dr. Gant 11/09/2021 with resection of her R cervical level 2, 2A, 3 and 4 lymph nodes. / lymph nodes were positive for metastatic PTC. She then underwent I131 adjuvant treatment with 150 millicurries 02/2022. This was completed through the withdrawal method. Labs 02/28/2022 TSH 31.4 and TG 0.6 with negative TG antibodies. She remains on levothyroxine 112 mcg PO daily and takes this correctly. She resumed this after her I131 adjuvant treatment. WBS 03/15/2022 revealed only physiologic uptake. TSH is at goal, with negative TG and TG antibodies. Repeat US head and neck was WNL 05/13/2022. She denies any history of head or neck irradiation. She denies any family history of thyroid cancer. She also has a history of hyperparathyroidism and underwent a single gland parathyroidectomy also in 2017. She had a DXA 04/2021 which revealed Osteopenia of the hip. US Head and Neck: 05/13/2022 RIGHT NECK: Level Ib: Lymph node measures 1.1 x 0.4 x 0.5 cm and has normal architecture. Level 2: Lymph node measures 0.5 x 0.6 x 0.6 cm. It has normal architecture. LEFT NECK: Level 2: Lymph node measures 0.3 x 0.3 x 0.6 cm. It has abnormal architecture. Level 4: Lymph node measures 0.5 x 0.3 x 0.6 cm. It has normal architecture. Labs: Laboratory Tests 05/31/22 07/25/22 08:10 09:02 TSH 0.21 L Free T4 1.35 Thyroglobulin 0.1 H Thyroglobulin Anti body <1 PFSH Medical History History of radioactive iodine thyroid ablation History of hyperparathyroidism Postoperative hypothyroidism Vitamin D deficiency Thyroid cancer Chronic kidney disease Type 2 diabetes mellitus with hyperglycemia Hypothyroid Obesity (BMI 30-39.9) Parotitis History of thyroid cancer Rheumatoid arthritis Hypercholesterolemia Hypertension Insomnia Surgical History History of hysteroscopy History of thyroid surgery History of parathyroid surgery H/O wrist surgery History of tonsillectomy History of section Family History Father CAD (coronary artery disease) Mother Dementia CAD (coronary artery disease) Sister Breast cancer Depression Social History Housing: House Are you a primary skin care instructor to a significant other at home: No Do you presently have visiting nurse or other home services: No Alcohol intake: current Alcohol intake frequency: does not drink Patient Tobacco Use Status: Never used Tobacco e-Cigarette/Vaping Use: Never Used Second Hand Smoke Exposure: No service: No Current occupational status: employed Current occupational exposures/hazards: No Cognitive needs: No Hearing needs: No Vision needs: Yes Female Reproductive History Menstrual Age of Menarche: 12 Physical Exam Const Other: Healed scar status post thyroidectomy. There is no cervical adenopathy palpated Assessment & Plan Assessment & Plan (1) History of thyroid cancer: Comment: Papillary April 2016 [address]. 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 She subsequently underwent I131 ablation with 90 millicurries I131 07/2016. Post-treatment WBS at that time revealed uptake within the thyroid bed only. Per reports, her stimulated TG remained between 1-10, indicating an indeterminat response. She had routine yearly surveillance US for cervical lymph node mapping. It is unclear of these results, but she does report that she was found to have an abnormal cervical lymph node in the R neck as of spring and underwent FNA biopsy of this which was positive for metastatic disease. She then underwent R lateral neck dissection with Dr. Gant 11/09/2021 with resection of her R cervical level 2, 2A, 3 and 4 lymph nodes. 2/17 lymph nodes were positive for metastatic PTC. She then underwent I131 adjuvant treatment with 150 millicurries 02/2022. This was completed through the withdrawal method. Labs 02/28/2022 TSH 31.4 and TG 0.6 with negative TG antibodies. Most recent thyroid ultrasound shows abnormal lymph node at left level 2 which was reviewed by Dr[address] Freedman prior to her departure and she noted that lymph node appeared normal Plan is to check TSH and free T4 and thyroglobulin. Will also talk to the p atient about various options including a 2nd opinion from Dr. Kimberly Larson in [place] to determine whether level 2 lymph node needs to be biopsied. She agrees with this plan and referral was made to Dr. Larson Orders: Referrals Endocrinology Referral Z85.850 - Personal history of malignant neoplasm of thyroid Coding Level of Care Code Est Pt Level 3 (08750) Diagnoses History of thyroid cancer Z85.850
[2023-03-06 08:01] VITALS: BP 114/62; PULSE 85; BMI 29.0
== END 2023-03-06 08:47 | disposition home or self-care (01) ==
PROVIDERS: PCP Internal Medicine; Visit Provider Internal Medicine Endocrinology, Diabetes & Metabolism
DX: Z85.850 Personal history of malignant neoplasm of thyroid (principal)
CPT/HCPCS: 99213

== ENCOUNTER 2023-03-06 07:57 | Outpatient (REF) | payer OTHER, SELFPAY ==
[2023-03-06 09:18] LABS: MANUAL DIFF FLAG NO
[2023-03-06 09:42] LABS: Basophils Percent Auto 0.2 % (0-2); Eosinophils Absolute Auto 0.1 X10*3/uL (0.0-0.4); Eosinophils Percent Auto 1.6 % (0-4); Hematocrit 47.5 % (37.0-47.0); Imm Gran Abs Auto 0.02 X10*3/uL (0.00-0.03); Imm Gran Pct Auto 0.2 % (0.0-0.4); Lymphocytes Absolute Auto 0.9 X10*3/uL (1.2-4.9); Lymphocytes Percent Auto 10.2 % (20-40); Mean Corpuscular HGB Conc 33.7 g/dl (31.0-35.0); Mean Corpuscular Hemoglobin 32.1 pg (27.0-33.0); Mean Corpuscular Volume 95.2 fL (80.0-98.0); Mean Platelet Volume 9.3 fL (9.4-12.3); Monocytes Absolute Auto 0.6 X10*3/uL (0.1-1.2); Monocytes Percent Auto 7.1 % (2-11); Neutrophils Absolute Auto 7.2 x10*3/uL (2.0-8.3); Neutrophils Percent Auto 80.7 % (45-73); Platelet Count 261 X10*3/uL (160-400); Red Blood Count 4.99 X10*6/uL (4.20-5.50); White Blood Count 8.9 X10*3/uL (4.8-10.8)
[2023-03-06 10:59] LABS: Phosphorus 3.6 mg/dL (2.7-4.5)
[2023-03-06 11:16] LABS: Free T4 (Free Thyroxine) 1.33 ng/dL (0.71-1.85); Thyroid Stimulating Hormone 0.32 uIU/mL (0.32-4.0); Vitamin D 25-OH Total 37.8 ng/mL (>30)
[2023-03-09 02:23] LABS: Thyroglobulin Antibody <1 IU/mL (<=1); Thyroglobulin Level <0.1 ng/mL
== END 2023-03-06 07:58 | disposition home or self-care (01) ==
LOC: HO.LAB 07:57
PROVIDERS: Internal Medicine Nephrology; PCP Internal Medicine; Visit Provider Internal Medicine Endocrinology, Diabetes & Metabolism
DX: E89.0 Postprocedural hypothyroidism (principal); N18.30 Chronic kidney disease, stage 3 unspecified; N20.0 Calculus of kidney; G47.00 Insomnia, unspecified; Z85.850 Personal history of malignant neoplasm of thyroid
CPT/HCPCS: 36415; 82306; 84100; 84432; 84439; 84443; 85025; 86800

== ENCOUNTER 2023-03-19 08:27 | Outpatient (AMB) | payer OTHER, SELFPAY ==
[2023-03-19 08:28] VITALS: BP 130/72; PULSE 75; O2SAT 100
--- NOTE | 2023-03-19 08:28 | MHC.PC.OV ---
Vital Signs 03/19/23 08:28 Height 5 ft 3 in BMI Reason not done Patient refused/unable BP 130/72 Blood Pressure Location Lt brachial Position Sitting Pulse 75 Pulse Source Pulse Oximeter Pulse Oximetry (%) 100 Oxygen Delivery Method Room Air Intake Visit Reasons: DM Intake Note: Patient is here to follow up on DM Artificial Plastic Eye Maker Required: No Allergies ciprofloxacin [Cipro] Allergy (Unknown, Verified 03/19/23 08:29) rash amlodipine Adverse Reaction (Intermediate, Verified 03/19/23 08:29) swelling Tobacco use date assessed: 03/19/23 Dental Screening Dental Screen Date: 03/19/23 Did you have a dental visit in the last 12 months?: Yes Did you have a dental problem in the last 6 months where you did not have access to dental care?: No Was dental information given to patient?: Patient has dentist HPI DM HPI Details 62-year-old overweight female with rheumatoid arthritis hypertension hypercholesterolemia insomnia diabetes mellitus history of thyroid cancer with postoperative hypothyroidism chronic kidney disease hyperparathyroid(single gland parathyroidectomy 2016) coming in for follow-up. Last seen in December 2022 for sinus congestion. Patient's mammogram is this July bone density is due April Cologuard test is due in April also. Patient does follow-up with endocrinology and is in contact with [place] [facility] 2nd opinion.. Patient also follows up with Nephrology likely from vascular disease advised cut back on case inhibitors the serum creatinine rises. Concern about renal biopsy. Ultrasound done in January 2023 of the kidneys unremarkable bladder unremarkable patient also so gynecology for the focal endometrial hyperplasia treated with hormones. Recently dilatation curettage December 2022 no residual atypia benign polyp advised hysterectomy laparoscopic and bilateral salpingo-oophorectomy looking for May for surgery.. would like to see ENDO here for 2ndopinion. having diarrhea for 1 month. no n no v PFSH Medical History History of radioactive iodine thyroid ablation History of hyperparathyroidism Postoperative hypothyroidism Vitamin D deficiency Thyroid cancer Chronic kidney disease Type 2 diabetes mellitus with hyperglycemia Hypothyroid Obesity (BMI 30-39.9) Parotitis History of thyroid cancer Rheumatoid arthritis Hypercholesterolemia Hypertension Insomnia Surgical History History of hysteroscopy History of thyroid surgery History of parathyroid surgery H/O wrist surgery History of tonsillectomy History of section Family History Father CAD (coronary artery disease) Mother Dementia CAD (coronary artery disease) Sister Breast cancer Depression Social History Housing: House Are you a primary client care representative to a significant other at home: No Do you presently have visiting nurse or other home services: No Alcohol intake: current Alcohol intake frequency: does not drink Patient Tobacco Use Status: Never used Tobacco e-Cigarette/Vaping Use: Never Used Second Hand Smoke Exposure: No service: No Current occupational status: employed Current occupational exposures/hazards: No Cognitive needs: No Hearing needs: No Vision needs: Yes Female Reproductive History Menstrual Age of Menarche: 12 Questionnaire Thrive Questionnaire Date Thrive assessed: 03/19/23 AUDIT C Alcohol Use Questionnaire (AUDIT-C) 1. How often do you have a drink containing alcohol?: Monthly or less 2. How many drinks containing alcohol do you have on a typical day when you are drinking?: 1 or 2 3. How often do you have six or more drinks on one occasion?: Never Total Score: 1 JAIRO-7 AMB Questionnaire JAIRO-7 Date JAIRO - 7 assessed: 03/19/23 Source: Developed by Drs. Miah Moreno, Katia Smith, Junior Alejo and colleagues, with an educational beth from [employer]. Physical exam (Primary Care) Vital Signs: Last Vital Signs Pulse 75 03/19/23 08:28 BP 130/72 03/19/23 08:28 Pulse Ox 100 03/19/23 08:28 Oxygen Delivery Method Room Air 03/19/23 08:28 Tobacco/Smoking Status: Tobacco use Status Tobacco use date assessed 03/19/23 03/19/23 08:29 Patient Tobacco Use Status Never used Tobacco 03/19/23 08:29 e-Cigarette/Vaping Use Never Used 03/19/23 08:29 Thrive Assessment: Date of Thrive Assessment Date Thrive assessed 03/19/23 03/19/23 08:29 Const General: alert; No acute distress Eyes Conjunctivae: conjunctivae normal Resp Auscultation: clear to auscultation bilaterally Cardio Rate: regular rate Rhythm: regular rhythm GI Inspection: Yes normal to inspection Extrem General: Yes normal to inspection and No edema Results AMB Hemoglobin A1c AMB Hemoglobin A1c 7.8 % Last Edit by LONNIE Davis on 03/19/23 08:49 Assessment and Plan Assessment & Plan (1) Type 2 diabetes mellitus with hyperglycemia: Comment: Pt has CKD stage 3, HTN, Hypercalcemia Code(s): E11.65 - Type 2 diabetes mellitus with hyperglycemia Qualifiers: Diabetes mellitus fci insulin use: without terminal manager use Qualified Code(s): E11.65 - Type 2 diabetes mellitus with hyperglycemia Plan: Decrease the amount of carbohydrate intake, pasta, bread, rice and potatoes are all sugar and that is aside from all the sweet stuff, remember that fruits are good but they are Sweet also. Hemoglobin A1c goal of less than 6.5. Patient on Jardiance 10 mg once a day glimepiride 2 mg once a day metformin 500 mg twice a day and Januvia (2) History of thyroid cancer: Comment: Papillary April 2016 [address]. Johny Buckner Right selective neck dissection November 2021 Code(s): Z85.850 - Personal history of malignant neoplasm of thyroid Plan: Patient follows up with endocrinology and has a 2nd opinion in [place] for question of lymph node surgeon (3) CKD (chronic kidney disease) stage 3, GFR 30-59 ml/min: Code(s): N18.30 - Chronic kidney disease, stage 3 unspecified Qualifiers: Chronic kidney disease stage 3 subtype: stage 3a (GFR 45-59) Qualified Code(s): N18.31 - Chronic kidney disease, stage 3a Plan: Keep Well hydrated patient follows up with Nephrology, blood pressure control continue to monitor creatinine possible biopsy (4) Postmenopausal bleeding: Comment: Office EMB Pathology showed complex mucinous lesions could not rule out hyperplasia D&C pathology benign polyp with normal inactive endometrium with no hyperplasia nor malignancy Code(s): N95.0 - Postmenopausal bleeding Plan: Patient has seen Gynecology in [facility] and planning May total laparoscopic hysterectomy and bilateral salpingo-oophorectomy meanwhile continue with hormones. (5) Rheumatoid arthritis: Code(s): M06.9 - Rheumatoid arthritis, unspecified Qualifiers: Rheumatoid arthritis location: multiple sites Rheumatoid factor presence: with rheumatoid factor Qualified Code(s): M05.79 - Rheumatoid arthritis with rheumatoid factor of multiple sites without organ or systems involvement Plan: Continue to follow-up with Rheumatology patient on methotrexate (6) Hypercholesterolemia: Code(s): E78.00 - Pure hypercholesterolemia, unspecified Plan: Avoid fried foods, chicken skin, eggs, butter margarine, pastries and meat. Be it pork or beef they have a lot of cholesterol LDL goal of less than 100 and triglyceride of less than 150 on simvastatin will need blood work in May (7) Hypertension: Code(s): I10 - Essential (primary) hypertension Qualifiers: Hypertension type: essential hypertension Qualified Code(s): I10 - Essential (primary) hypertension Plan: Continue with blood pressure medication. Decrease salt intake and exercise presently on lisinopril 10 mg once a day (8) Postoperative hypothyroidism: Code(s): E89.0 - Postprocedural hypothyroidism Plan: Continue with thyroid medication continue to follow-up with endocrinology (9) Breast cancer screening by mammogram: Code(s): Z12.31 - Encounter for screening mammogram for malignant neoplasm of breast Plan: Patient is reminded about mammogram (10) Diarrhea: Code(s): R19.7 - Diarrhea, unspecified (11) Impacted cerumen, left ear: Code(s): H61.22 - Impacted cerumen, left ear Orders: Orders Thyroid Stimulating Hormone 3 Months E11.65 - Type 2 diabetes mellitus with hyperglycemia Vitamin B12 and Folate 3 Months E11.65 - Type 2 diabetes mellitus with hyperglycemia CDiff Gene PCR Today R19.7 - Diarrhea, unspecified AMB Hemoglobin A1c Today E11.65 - Type 2 diabetes mellitus with hyperglycemia Complete Blood Count Auto Diff 3 Months E11.65 - Type 2 diabetes mellitus with hyperglycemia Comprehensive Met. Panel 3 Months E11.65 - Type 2 diabetes mellitus with hyperglycemia Free T4 (Free Thyroxine) 3 Months E11.65 - Type 2 diabetes mellitus with hyperglycemia Lipid Panel 3 Months E11.65 - Type 2 diabetes mellitus with hyperglycemia, E78.00 - Pure hypercholesterolemia, unspecified Vitamin D 25-OH Total 3 Months E11.65 - Type 2 diabetes mellitus with hyperglycemia Microalbumin, Random (w Creat) 3 Months E11.65 - Type 2 diabetes mellitus with hyperglycemia Creatinine Urine 3 Months E11.65 - Type 2 diabetes mellitus with hyperglycemia Leukocytes Stool Qualitative Today R19.7 - Diarrhea, unspecified Ova and Parasite Today R19.7 - Diarrhea, unspecified Referrals Endocrinology Referral Z85.850 - Personal history of malignant neoplasm of thyroid Coding Level of Care Code Est Pt Level 4 (16965) Diagnoses Type 2 diabetes mellitus with hyperglycemia, without long-term current use of insulin E11.65 Diabetes mellitus terminal manager insulin use: without fci use History of thyroid cancer Z85.850 Stage 3a chronic kidney disease N18.31 Chronic kidney disease stage 3 subtype: stage 3a (GFR 45-59) Postmenopausal bleeding N95.0 Rheumatoid arthritis involving multiple sites with positive rheumatoid factor M05.79 Rheumatoid arthritis location: multiple sites Rheumatoid factor presence: with rheumatoid factor Hypercholesterolemia E78.00 Essential hypertension I10 Hypertension type: essential hypertension Postoperative hypothyroidism E89.0 Breast cancer screening by mammogram Z12.31 Diarrhea R19.7 Impacted cerumen, left ear H61.22
== END 2023-03-19 09:12 | disposition home or self-care (01) ==
PROVIDERS: PCP Internal Medicine; Visit Provider Internal Medicine
DX: E11.65 Type 2 diabetes mellitus with hyperglycemia (principal); N18.31 Chronic kidney disease, stage 3a; M05.79 Rheumatoid arthritis with rheumatoid factor of multiple sites without organ or systems involvement; Z85.850 Personal history of malignant neoplasm of thyroid; N95.0 Postmenopausal bleeding; E78.00 Pure hypercholesterolemia, unspecified; I10 Essential (primary) hypertension; E89.0 Postprocedural hypothyroidism; Z12.31 Encounter for screening mammogram for malignant neoplasm of breast; R19.7 Diarrhea, unspecified; H61.22 Impacted cerumen, left ear
CPT/HCPCS: 83036; 99214

== ENCOUNTER 2023-03-25 08:30 | Outpatient (REF) | payer OTHER, SELFPAY | END 2023-03-25 08:31 | disposition home or self-care (01) | LOC: HO.LAB 08:30 | PROVIDERS: PCP Internal Medicine; Visit Provider Internal Medicine | DX: Z13.89 Encounter for screening for other disorder (principal) ==

== ENCOUNTER 2023-03-26 08:33 | Outpatient (REF) | payer OTHER, SELFPAY ==
[2023-03-26 10:04] LABS: CDiff Gene PCR NEGATIVE (Negative)
[2023-03-26 10:07] LABS: Leukocytes Stool Qualitative NEGATIVE (NEGATIVE)
== END 2023-03-26 08:34 | disposition home or self-care (01) ==
LOC: HO.LNP 08:33
PROVIDERS: Visit Provider Internal Medicine
DX: R19.7 Diarrhea, unspecified (principal)
CPT/HCPCS: 87177; 87209; 87493; 89055

== ENCOUNTER 2023-04-10 14:31 | Outpatient (AMB) | payer OTHER, SELFPAY ==
--- NOTE | 2023-04-10 14:32 | MHC.PC.OV ---
Intake Visit Reasons: Sinus Infection Government Operations Consultant Required: No Allergies ciprofloxacin [Cipro] Allergy (Unknown, Verified 03/19/23 08:29) rash amlodipine Adverse Reaction (Intermediate, Verified 03/19/23 08:29) swelling Medication List - Last Reconciled 04/10/23 by Barbara Victor MD blood sugar diagnostic (IntegralReachTouch Verio test strips) test once daily cholecalciferol (vitamin D3) 125 mcg PO .2x /week diclofenac sodium 37.5 mg (1/2 x 75 mg) PO BID doxycycline hyclate 100 mg PO DAILY empagliflozin (Jardiance) 10 mg PO DAILY fluticasone propionate 50 mcg/actuation (Flonase Allergy Relief) 2 sprays intranasal DAILY folic acid 1 mg PO DAILY glimepiride 2 mg PO DAILY 90 days levothyroxine 112 mcg PO DAILY 90 days lisinopril 10 mg PO DAILY metformin 500 mg PO BID methotrexate sodium 10 mg PO QWEEK misoprostol 200 mcg PO BID norethindrone acetate 5 mg PO DAILY simvastatin 10 mg PO BEDTIME sitagliptin phosphate (Januvia) 50 mg PO DAILY 90 days zolpidem (Ambien) 10 mg PO BEDTIME PRN 90 days Tobacco use date assessed: 03/19/23 HPI Sinus Infection HPI Details 62-year-old with diabetes mellitus uncontrolled history of thyroid cancer chronic kidney disease rheumatoid arthritis hypercholesterolemia hypertension hypothyroidism calling in for an acute problem.. Patient was just seen 03/19/2023. states sinus infection asking for antibiotic. - - has post nasal drip take zyrtec. having bloody nose PFSH Medical History History of radioactive iodine thyroid ablation History of hyperparathyroidism Postoperative hypothyroidism Vitamin D deficiency Thyroid cancer Chronic kidney disease Type 2 diabetes mellitus with hyperglycemia Hypothyroid Obesity (BMI 30-39.9) Parotitis History of thyroid cancer Rheumatoid arthritis Hypercholesterolemia Hypertension Insomnia Surgical History History of hysteroscopy History of thyroid surgery History of parathyroid surgery H/O wrist surgery History of tonsillectomy History of section Family History Father CAD (coronary artery disease) Mother Dementia CAD (coronary artery disease) Sister Breast cancer Depression Social History (Reviewed 01/25/24 @ 08:07 by MARQUISE Faria Housing: House Are you a primary adult live in caregiver to a significant other at home: No Do you presently have visiting nurse or other home services: No Alcohol intake: current Alcohol intake frequency: does not drink Patient Tobacco Use Status: Never used Tobacco e-Cigarette/Vaping Use: Never Used Second Hand Smoke Exposure: No service: No Current occupational status: employed Current occupational exposures/hazards: No Cognitive needs: No Hearing needs: No Vision needs: Yes Female Reproductive History Menstrual Age of Menarche: 12 Questionnaire Thrive Questionnaire Date Thrive assessed: 03/19/23 JAIRO-7 AMB Questionnaire JAIRO-7 Date JAIRO - 7 assessed: 03/19/23 Source: Developed by Drs. Miah Moreno, Katia Smith, Junior Alejo and colleagues, with an educational beth from [employer]. Physical exam (Primary Care) Tobacco/Smoking Status: Tobacco use Status Tobacco use date assessed 03/19/23 04/10/23 14:34 Patient Tobacco Use Status Never used Tobacco 04/10/23 14:34 e-Cigarette/Vaping Use Never Used 04/10/23 14:34 Thrive Assessment: Date of Thrive Assessment Date Thrive assessed 03/19/23 04/10/23 14:34 Telehealth Telehealth Location of provider rendering services: practice address Location of patient: address on file Patient Identification confirmed using: Name, : Yes Telehealth method: voice only Patient verbally consented to treatment: Yes Patient verbally consented to billing insurance company: Yes Patient informed of any privacy concerns related to visit: Yes Minutes spent on Phone/Video with Pt.: 15 Assessment and Plan Assessment & Plan (1) Sinusitis: Code(s): J32.9 - Chronic sinusitis, unspecified Plan: Antibiotics sent in. Penicillin group can not be used due to interaction with methotrexate. (2) Epistaxis: Code(s): R04.0 - Epistaxis Plan: Discussed about nasal saline spray and as for Flonase for postnasal drip because it is alcohol based advised to change to Nasonex or Nasacort. Medications: New doxycycline hyclate 100 mg PO DAILY 14 caps 0RF J32.9 - Chronic sinusitis, unspecified triamcinolone acetonide (Nasacort Allergy) administer into each nostril 2 sprays intranasal DAILY 16.9 mL 1RF J32.9 - Chronic sinusitis, unspecified Discontinued fluticasone propionate 50 mcg/actuation (Flonase Allergy Relief) administer into each nostril Discontinued Reason: Change Referral Type 2 sprays intranasal DAILY 16 grams 1RF R09.81 - Nasal congestion Coding Level of Care Code Tele Est Pt Level 3 (88860) Diagnoses Sinusitis J32.9 Epistaxis R04.0
== END 2023-04-10 15:03 | disposition home or self-care (01) ==
LOC: HO.HMGH 14:32
PROVIDERS: PCP Internal Medicine; Visit Provider Internal Medicine
DX: J32.9 Chronic sinusitis, unspecified (principal); R04.0 Epistaxis
CPT/HCPCS: 99442

== ENCOUNTER 2023-05-09 11:00 | Outpatient (REF) | payer OTHER, SELFPAY ==
--- NOTE | ~2023-05-09 | US_ITS ---
EXAMINATION:US pelvic and transvaginal CLINICAL INFORMATION: Reason for Exam endometrial hyperplasia COMPARISON: Prior study 12/09/2022 FINDINGS: UTERUS: The uterus is anteverted. Size: 12.2 x 7.2 x 8.1 cm. Uterine mass: Multiple uterine masses likely fibroids measuring up to 5.3 cm, 1.8 cm 2.1 cm, and 2.2 cm, at least 2 of which are newly found on today's exam, other fibroids have been present and slightly increased in size. Cervix: Nabothian cyst otherwise Grossly unremarkable. Endometrium: Endometrium not visualized obscured by uterine masses probably fibroids. ADNEXA: Ovaries not visualized might have been obscured by bowel gas. FREE FLUID: Trace amount of free fluid. OTHER FINDINGS: None US/US pelvic and transvaginal IMPRESSION: 1. Multiple uterine masses likely fibroids, at least 2 of which are newly found on today's exam, other fibroids have been present and slightly increased in size. 2. Endometrium not visualized obscured by intense shadowing from uterine masses likely fibroids. 3. CRIBBING SETTER consultation recommended, May consider correlation with follow-up contrast enhanced pelvic MRI to rule out underlying pathology.
== END 2023-05-09 11:01 | disposition home or self-care (01) ==
LOC: HO.US 11:00
PROVIDERS: PCP Internal Medicine; Visit Provider Obstetrics & Gynecology Gynecologic Oncology
DX: N85.00 Endometrial hyperplasia, unspecified (principal)
CPT/HCPCS: 76830; 76856

== ENCOUNTER 2023-05-14 07:31 | Outpatient (REF) | payer OTHER, SELFPAY ==
[2023-05-14 07:50] LABS: MANUAL DIFF FLAG NO
[2023-05-14 08:17] LABS: Basophils Percent Auto 0.4 % (0-2); Eosinophils Absolute Auto 0.2 X10*3/uL (0.0-0.4); Eosinophils Percent Auto 3.5 % (0-4); Hematocrit 45.7 % (37.0-47.0); Hemoglobin 15.5 g/dl (12.0-16.0); Imm Gran Abs Auto 0.01 X10*3/uL (0.00-0.03); Imm Gran Pct Auto 0.2 % (0.0-0.4); Lymphocytes Absolute Auto 0.9 X10*3/uL (1.2-4.9); Lymphocytes Percent Auto 17.6 % (20-40); Mean Corpuscular HGB Conc 33.9 g/dl (31.0-35.0); Mean Corpuscular Hemoglobin 31.6 pg (27.0-33.0); Mean Corpuscular Volume 93.3 fL (80.0-98.0); Mean Platelet Volume 9.3 fL (9.4-12.3); Monocytes Absolute Auto 0.4 X10*3/uL (0.1-1.2); Monocytes Percent Auto 8.9 % (2-11); Neutrophils Absolute Auto 3.4 x10*3/uL (2.0-8.3); Neutrophils Percent Auto 69.4 % (45-73); Platelet Count 244 X10*3/uL (160-400); Red Cell Distribution Width 13.3 % (11.0-16.0); White Blood Count 4.8 X10*3/uL (4.8-10.8)
[2023-05-14 09:18] LABS: Alanine Aminotransferase 20 U/L (0-31); Albumin Level 4.1 g/dL (3.5-5.0); Alkaline Phosphatase 74 U/L (39-117); Anion Gap 16 (12-20); Aspartate Amino Transferase 14 U/L (5-31); Bilirubin Total 0.4 mg/dL (0.0-1.0); Blood Urea Nitrogen 28 mg/dL (9-16); Calcium 11.4 mg/dL (8.4-10.2); Carbon Dioxide 18 mmol/L (22-29); Chloride 107 mmol/L (96-108); Estimated Glomerular Filt Rate 28; Glucose Random 276 mg/dL (60-115); Potassium 4.9 mmol/L (3.3-5.1); Sodium 136 mmol/L (135-145)
== END 2023-05-14 07:32 | disposition home or self-care (01) ==
LOC: HO.LAB 07:31
PROVIDERS: Obstetrics & Gynecology Gynecologic Oncology; PCP Internal Medicine; Visit Provider Surgery
DX: N85.00 Endometrial hyperplasia, unspecified (principal)
CPT/HCPCS: 36415; 80053; 85025

== ENCOUNTER 2023-05-20 15:13 | Outpatient (REF) | payer OTHER, SELFPAY ==
--- NOTE | ~2023-05-20 | US_ITS ---
EXAMINATION: US SOFT TISSUE HEAD/NECK CLINICAL INFORMATION: Malignant neoplasm of thyroid gland. COMPARISON: Ultrasound soft tissue neck 05/13/2022. Ultrasound soft tissue head/neck 03/05/2017. TECHNIQUE: Linear transducer lopez-scale and color Doppler examination of the thyroid bed and surrounding soft tissue. FINDINGS: No abnormal tissue seen in the thyroid bed or thyroid nodule. There are 4 right cervical lymph nodes. It is difficult to evaluate small lymph nodes for ultrasound morphology given size. There is a right level I-B lymph node measuring 0.7 x 0.3 x 0.6 cm in sagittal AP and transverse dimension. This is normal in morphology and slightly decreased in size from prior exam. There is a right level III lymph node that measures 0.9 x 0.4 x 0.7 cm. This may have a slit-like or absent hilum and possibly could be cystic. This is not appreciated on prior exam. There is a 0.7 x 0.3 x 0.6 cm right level IV lymph node. There is a left level IV lymph node measuring 1 x 0.3 x 0.4 cm. This is increased in size from 0.5 x 0.3 x 0.6 cm on prior exam. This may have been absent or slit-like hilum and possibly be cystic. This was not appreciated on previous exam. There are 2 left cervical lymph nodes. There is a 0.5 x 0.4 x 0.4 cm left level II lymph node. This is not appreciably changed in size from previous exam. US/US soft tiss head and/or neck IMPRESSION: Small bilateral cervical lymph nodes. Largest lymph node is a level IV lymph node on the left which is increased in size. There are 2 new right cervical lymph nodes seen. It is difficult to evaluate morphology of lymph nodes due to small size.
== END 2023-05-20 15:14 | disposition home or self-care (01) ==
LOC: HO.US 15:13
PROVIDERS: Visit Provider Internal Medicine
DX: C73 Malignant neoplasm of thyroid gland (principal)
CPT/HCPCS: 76536

== ENCOUNTER 2023-06-05 13:31 | Outpatient (REF) | payer OTHER, SELFPAY ==
[2023-06-05 14:07] LABS: MANUAL DIFF FLAG NO
[2023-06-05 14:49] LABS: Basophils Percent Auto 0.3 % (0-2); Eosinophils Absolute Auto 0.1 X10*3/uL (0.0-0.4); Eosinophils Percent Auto 2.7 % (0-4); Hematocrit 47.6 % (37.0-47.0); Hemoglobin 16.3 g/dl (12.0-16.0); Imm Gran Abs Auto 0.01 X10*3/uL (0.00-0.03); Imm Gran Pct Auto 0.3 % (0.0-0.4); Lymphocytes Absolute Auto 0.7 X10*3/uL (1.2-4.9); Lymphocytes Percent Auto 19.1 % (20-40); Mean Corpuscular HGB Conc 34.2 g/dl (31.0-35.0); Mean Corpuscular Hemoglobin 31.7 pg (27.0-33.0); Mean Corpuscular Volume 92.4 fL (80.0-98.0); Mean Platelet Volume 9.4 fL (9.4-12.3); Monocytes Absolute Auto 0.5 X10*3/uL (0.1-1.2); Monocytes Percent Auto 12.8 % (2-11); Neutrophils Absolute Auto 2.4 x10*3/uL (2.0-8.3); Neutrophils Percent Auto 64.8 % (45-73); Platelet Count 201 X10*3/uL (160-400); Red Blood Count 5.15 X10*6/uL (4.20-5.50); Red Cell Distribution Width 13.4 % (11.0-16.0); White Blood Count 3.7 X10*3/uL (4.8-10.8)
[2023-06-05 15:27] LABS: Erythrocyte Sedimentation Rate 4 MM/HR (0-20)
[2023-06-05 16:14] LABS: Alanine Aminotransferase 20 U/L (0-31); Aspartate Amino Transferase 16 U/L (5-31); C Reactive Protein 1.28 mg/dL (< or = 0.50); Estimated Glomerular Filt Rate 39
[2023-06-05 16:15] LABS: Alanine Aminotransferase 19 U/L (0-31); Albumin Level 4.1 g/dL (3.5-5.0); Alkaline Phosphatase 73 U/L (39-117); Anion Gap 11 (12-20); Aspartate Amino Transferase 15 U/L (5-31); Bilirubin Total 0.5 mg/dL (0.0-1.0); Blood Urea Nitrogen 24 mg/dL (9-16); Calcium 8.5 mg/dL (8.4-10.2); Carbon Dioxide 15 mmol/L (22-29); Chloride 112 mmol/L (96-108); Estimated Glomerular Filt Rate 41; Glucose Random 191 mg/dL (60-115); Potassium 4.1 mmol/L (3.3-5.1); Sodium 134 mmol/L (135-145); Total Protein 6.8 g/dL (6.5-8.0)
[2023-06-05 16:17] LABS: Creatinine Urine 57.08 mg/dL; Microalbumin Urine < 5.0 mg/L
[2023-06-05 16:26] LABS: Alanine Aminotransferase 21 U/L (0-31); Albumin Level 4.1 g/dL (3.5-5.0); Alkaline Phosphatase 71 U/L (39-117); Anion Gap 12 (12-20); Aspartate Amino Transferase 15 U/L (5-31); Bilirubin Total 0.3 mg/dL (0.0-1.0); Blood Urea Nitrogen 23 mg/dL (9-16); Calcium 8.6 mg/dL (8.4-10.2); Carbon Dioxide 15 mmol/L (22-29); Chloride 111 mmol/L (96-108); Estimated Glomerular Filt Rate 40; Glucose Random 192 mg/dL (60-115); Potassium 4.1 mmol/L (3.3-5.1); Sodium 134 mmol/L (135-145); Total Protein 6.8 g/dL (6.5-8.0)
[2023-06-05 16:33] LABS: Free T4 (Free Thyroxine) 1.08 ng/dL (0.71-1.85); Vitamin D 25-OH Total 31.4 ng/mL (>30)
[2023-06-05 16:55] LABS: Folate > 20.0 ng/mL (> or = 4.0)
[2023-06-05 21:04] LABS: Vitamin B12 310 pg/mL (200-900)
== END 2023-06-05 13:32 | disposition home or self-care (01) ==
LOC: HO.LABR 13:31
PROVIDERS: Internal Medicine Rheumatology; Obstetrics & Gynecology Gynecologic Oncology; Absent Provider Surgery; PCP Internal Medicine; Visit Provider Internal Medicine
DX: E11.65 Type 2 diabetes mellitus with hyperglycemia (principal); M06.9 Rheumatoid arthritis, unspecified; N85.00 Endometrial hyperplasia, unspecified
CPT/HCPCS: 36415; 80053; 82043; 82306; 82565; 82570; 82607; 82746; 84439; 84443; 84450; 84460; 85025; 85652; 86140

== ENCOUNTER 2023-07-15 09:16 | Outpatient (REF) | payer OTHER, SELFPAY ==
[2023-07-15 11:32] LABS: Calcium 9.9 mg/dL (8.4-10.2); Cholesterol 141 mg/dL (<200); HDL Cholesterol 65 mg/dL (>40); LDL Cholesterol Calculated 63 mg/dL (<100); Triglycerides 67 mg/dL (<150)
== END 2023-07-15 09:17 | disposition home or self-care (01) ==
LOC: HO.HMGCLDS 09:16
PROVIDERS: PCP Internal Medicine; Referring Provider Internal Medicine Nephrology; Visit Provider Internal Medicine
DX: N18.30 Chronic kidney disease, stage 3 unspecified (principal); N20.0 Calculus of kidney; G47.00 Insomnia, unspecified; E78.00 Pure hypercholesterolemia, unspecified; E11.65 Type 2 diabetes mellitus with hyperglycemia; E11.22 Type 2 diabetes mellitus with diabetic chronic kidney disease
CPT/HCPCS: 36415; 80061; 82310

== ENCOUNTER 2023-07-18 10:53 | Outpatient (AMB) | payer OTHER, SELFPAY ==
--- NOTE | 2023-07-18 11:17 | A.OFFVIS_ITS ---
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 Patient reports when she fell outside and she landed on her left side but her right knee is very painful. She states that her knee is a bit better today. Patient reports her pain is mostly on her thigh not so much her knee. 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 While in the office today the patient reports on 07/16/2023 she fell outside on to her left side. She states status post the fall her right knee is ?very painful?. However, she notes her right knee is a bit better today in the office. Patient reports more pain in her right thigh than in her right knee. Patient has an allergy history, as follows: -Ciprofloxacin; rash -Amlodipine; edema Patient is currently taking, as follows: -Cholecalciferol 125 mcg PO 2 times weekly -Diclofenac sodium 37.5 PO BID -Doxycycline hyclate 100 mg PO daily -Empagliflozin 10 mg PO daily -Folic acid 1 mg PO daily -Glimepiride 2 mg PO daily -Levothyroxine 112 mcg PO daily -Lisinopril 10 mg PO daily -Metformin 500 mg PO BID -Methotrexate sodium 10 mg PO QWeek -Misoprostol 200 mcg PO BID -Norethindrone acetate 5 mg PO daily -Simvastatin 10 mg PO Bedtime -Sitagliptin phosphate 50 mg PO daily -Triamcinolone acetonide 2 sprays intranasal dailiy -Zolpidem 10 mg PO bedtime PRN Patient has a medical history, as follows: -Epistaxis -Chronic kidney disease, stage 3, GFR 30-59 ml/min -Vitamin B12 deficiency -Hypercalcemia -Osteopenia -Hyperparathyrodisim -Uterine myoma -Postoperative hypothyroidism -Vitamin D deficiency -Hx [facility] cancer; [facility] November 2021 -Type 2 diabetes mellitus with hyperglycemia -Obesity; BMI of 29.0 as of 03/06/2023. -Rheumatoid arthritis -Hypercholesterolemia -Hypertension -Insomnia Patient has a surgical history, as follows: -History of hysteroscopy -History of thyroid surgery; 11/09/2022 -History of parathyroid surgery; 04/2016 for papillary thyroid cance -History of wrist surgery; right wrist for fracture with surgery 2014 -History of tonsillectomy -History of section; x2 PFSH Medical History History of radioactive iodine thyroid ablation History of hyperparathyroidism Postoperative hypothyroidism Vitamin D deficiency Thyroid cancer Chronic kidney disease Type 2 diabetes mellitus with hyperglycemia Hypothyroid Obesity (BMI 30-39.9) Parotitis History of thyroid cancer Rheumatoid arthritis Hypercholesterolemia Hypertension Insomnia Surgical History History of hysteroscopy History of thyroid surgery History of parathyroid surgery H/O wrist surgery History of tonsillectomy History of section Family History Father CAD (coronary artery disease) Mother Dementia CAD (coronary artery disease) Sister Breast cancer Depression Social History Housing: House Are you a primary overnight caregiver to a significant other at home: No Do you presently have visiting nurse or other home services: No Alcohol intake: current Alcohol intake frequency: does not drink Patient Tobacco Use Status: Never used Tobacco e-Cigarette/Vaping Use: Never Used Second Hand Smoke Exposure: No service: No Current occupational status: employed Current occupational exposures/hazards: No Cognitive needs: No Hearing needs: No Vision needs: Yes Female Reproductive History Menstrual Age of Menarche: 12 Review of Systems Const All systems reviewed & are unremarkable except as noted in HPI and below Physical Exam Const General: cooperative and no acute distress Orientation/consciousness: patient oriented x3 Resp Effort & Inspection: normal respiratory effort and able to speak in complete sentences Cardio Peripheral pulses: Peripheral pulses 2+ throughout Skin General skin exam: no rashes or lesions noted Neuro General: patient oriented x3 Extrem Other: Right knee: Mild to moderated effusion. Tenderness to palpation over the proximal pole of the patella. Difficult to assess deformity. Unable to perform straight leg raise or perform any knee extension. Able to dorsiflex and plantarflex. NVI. Assessment & Plan Assessment & Plan (1) Rupture of right quadriceps tendon: Code(s): S76.111A - Strain of right quadriceps muscle, fascia and tendon, initial encounter Category: Medical Plan Ms. Tse is a 62-year-old female who presents in the office today, as a new patient, for an evaluation of right knee pain. While in the office today the patient reports on 07/16/2023 she fell outside on to her left side. She states status post the fall her right knee is ?very painful?. However, she notes her right knee is a bit better today in the office. Patient reports more pain in her right thigh than in her right knee. Patient has an allergy history, as follows: -Ciprofloxacin; rash -Amlodipine; edema Patient is currently taking, as follows: -Cholecalciferol 125 mcg PO 2 times weekly -Diclofenac sodium 37.5 PO BID -Doxycycline hyclate 100 mg PO daily -Empagliflozin 10 mg PO daily -Folic acid 1 mg PO daily -Glimepiride 2 mg PO daily -Levothyroxine 112 mcg PO daily -Lisinopril 10 mg PO daily -Metformin 500 mg PO BID -Methotrexate sodium 10 mg PO QWeek -Misoprostol 200 mcg PO BID -Norethindrone acetate 5 mg PO daily -Simvastatin 10 mg PO Bedtime -Sitagliptin phosphate 50 mg PO daily -Triamcinolone acetonide 2 sprays intranasal dailiy -Zolpidem 10 mg PO bedtime PRN Patient has a medical history, as follows: -Epistaxis -Chronic kidney disease, stage 3, GFR 30-59 ml/min -Vitamin B12 deficiency -Hypercalcemia -Osteopenia -Hyperparathyrodisim -Uterine myoma -Postoperative hypothyroidism -Vitamin D deficiency -Hx of thyroid cancer; Papillary April 2016 Dr. Mccl[facility] Right selective neck dissection November 2021 -Type 2 diabetes mellitus with hyperglycemia -Obesity; BMI of 29.0 as of 03/06/2023. -Rheumatoid arthritis -Hypercholesterolemia -Hypertension -Insomnia Patient has a surgical history, as follows: -History of hysteroscopy -History of thyroid surgery; 11/09/2022 -History of parathyroid surgery; 04/2016 for papillary thyroid cance -History of wrist surgery; right wrist for fracture with surgery 2014 -History of tonsillectomy -History of section; x2 Dr. Smith was available to see the patient with me while in the office today and a collaborative treatment plan was made. I discussed in detail the procedure and what to expect pre and post operatively. We discussed the risks, benefits and alternatives to the surgery and the rehabilitation course. The risks include infection, bleeding, nerve injury, ongoing pain, swelling, and stiffness, perioperative risk of injury to bones and soft tissues, and blood clots. I have answered all questions and with their understanding they have consented to move forward with a right knee quad tendon repair to be performed next week by Dr. Shakir Smith. Follow-up will be at the post operative appointment, or sooner if needed. X-rays of the right knee which were obtained while in the office today and were reviewed by me, Rachel Piña PA-C, revealed no acute fracture or dislocation. Orders: Orders XR knee RT 3V Today M25.569 - Pain in unspecified knee Patient Instructions: Scribed by Sameera Colbert certified medical biller, for Rachel Piña PA-C on 07/18/2023 at 10:56 am, EST. Coding Level of Care Code New Pt Level 4 (43430) Diagnoses Rupture of right quadriceps tendon S76.111A
== END 2023-07-18 13:07 | disposition home or self-care (01) ==
PROVIDERS: PCP Internal Medicine; Visit Provider Physician Assistant
DX: S76.111A Strain of right quadriceps muscle, fascia and tendon, initial encounter (principal); W19.XXXA Unspecified fall, initial encounter
CPT/HCPCS: 99204

== ENCOUNTER 2023-07-18 10:53 | Outpatient (REF) | payer OTHER, SELFPAY ==
--- NOTE | ~2023-07-18 | XR_ITS ---
EXAMINATION: XR KNEE, RIGHT CLINICAL INFORMATION: Pain in unspecified knee. COMPARISON: None available. TECHNIQUE: AP standing view of bilateral knees as well as lateral and sunrise views of the right knee. FINDINGS: Right Knee: Small joint effusion. Faint chondrocalcinosis in the medial and lateral compartments. Asymmetric medial narrowing of the patellofemoral compartment on the sunrise view. Tiny marginal osteophytes. AP standing view of the left knee demonstrates moderate narrowing of the medial compartment with medial and lateral marginal osteophytes. XR/XR knee RT 3V IMPRESSION: 1. Small right knee joint effusion with degenerative changes. 2. Moderate degenerative changes left knee.
== END 2023-07-18 10:54 | disposition home or self-care (01) ==
LOC: HO.HOSX 10:53
PROVIDERS: PCP Internal Medicine; Visit Provider Physician Assistant
DX: M23.8X2 Other internal derangements of left knee (principal); M25.461 Effusion, right knee; M23.8X1 Other internal derangements of right knee
CPT/HCPCS: 73562

== ENCOUNTER 2023-07-23 12:30 | Day surgery (SDC) | payer OTHER, SELFPAY ==
--- NOTE | 2023-07-22 14:47 | HO.ANESPROP2 ---
Documented by User: Mellisa Schmitt NP 07/22/23 14:49 HPI - Anesthesia Eval Consult details Narrative: 62yo F for Right Quadricep tendon Repair Anesthesia Pre-Procedure Meds Is the patient on any of the following meds?: GLP1/DPP4 and SGLT2 Inhib PMFSH Active Problems Active Problems: All Active Problems Rupture of right quadriceps tendon (Acute) Epistaxis (Acute) Sinusitis (Acute) Diarrhea (Acute) Breast cancer screening by mammogram (Acute) CKD (chronic kidney disease) stage 3, GFR 30-59 ml/min (Acute) Bilateral hip pain (Acute) Renal calculus, left (Acute) Right shoulder pain (Acute) Vitamin B12 deficiency (Acute) Sinus congestion (Acute) Hypercalcemia (Acute) Osteopenia (Acute) Hyperparathyroidism (Acute) Cough (Acute) Impacted cerumen, left ear (Acute) Postmenopausal bleeding (Acute) Cough (Acute) Dyspnea (Acute) Acute bronchitis (Acute) Uterine myoma (Acute) History of hyperparathyroidism (Acute) Postoperative hypothyroidism (Acute) Vitamin D deficiency (Acute) Chronic kidney disease (Acute) History of thyroid cancer (Acute) Type 2 diabetes mellitus with hyperglycemia (Acute) Obesity (BMI 30-39.9) (Acute) Rheumatoid arthritis (Acute) Hypercholesterolemia (Acute) Hypertension (Acute) Insomnia (Acute) Past Medical History Medical History History of radioactive iodine thyroid ablation History of hyperparathyroidism Postoperative hypothyroidism Vitamin D deficiency Thyroid cancer Chronic kidney disease Type 2 diabetes mellitus with hyperglycemia Hypothyroid Obesity (BMI 30-39.9) Parotitis History of thyroid cancer Rheumatoid arthritis Hypercholesterolemia Hypertension Insomnia Family History Family History Father CAD (coronary artery disease) Mother Dementia CAD (coronary artery disease) Sister Breast cancer Depression Family history of problems with anesthesia: No Surgical History Surgical History History of hysteroscopy History of thyroid surgery History of parathyroid surgery H/O wrist surgery History of tonsillectomy History of section History of Problems with Anesthesia: No Social History Social History Housing: House Are you a primary primary care sales representative to a significant other at home: No Do you presently have visiting nurse or other home services: No Alcohol intake: current Alcohol intake frequency: does not drink Patient Tobacco Use Status: Never used Tobacco e-Cigarette/Vaping Use: Never Used Second Hand Smoke Exposure: No Advance Directives: No Advance Directives Information Provided: Yes service: No Current occupational status: employed Current occupational exposures/hazards: No Cognitive needs: No Hearing needs: No Vision needs: Yes Meds Allergies Allergy/AdvReac Type Severity Reaction Status Date / Time ciprofloxacin [Cipro] Allergy Unknown rash Verified 03/19/23 08:29 amlodipine AdvReac Intermediate swelling Verified 03/19/23 08:29 Home Medications ?Medication ?Instructions ?Recorded ?Confirmed ?Last Taken ?Type methotrexate sodium 2.5 mg tablet 10 mg PO QWEEK 12/07/21 04/10/23 Unknown History misoprostol 200 mcg tablet 200 mcg PO BID 05/29/22 04/10/23 Unknown History norethindrone acetate 5 mg tablet 5 mg PO DAILY 05/29/22 04/10/23 Unknown History Exam Pertinent Lab Results Pertinent Lab Results: Laboratory Tests 06/05/23 14:06 WBC 3.7 L Hgb 16.3 H Hct 47.6 H Plt Count 201 Sodium 134 L Potassium 4.1 Chloride 111 H Carbon Dioxide 15 L BUN 23 H Creatinine 1.33 Assessment and Plan Assessment Anesthesia Assessment: Chart Reviewed Final Anesthetic Review Family History of Problems with Anesthesia: No History of Problems with Anesthesia: No Documented by User: Alea Wright MD 07/23/23 12:57 PMFSH Past Medical History Medical History History of radioactive iodine thyroid ablation History of hyperparathyroidism Postoperative hypothyroidism Vitamin D deficiency Thyroid cancer Chronic kidney disease Type 2 diabetes mellitus with hyperglycemia Hypothyroid Obesity (BMI 30-39.9) Parotitis History of thyroid cancer Rheumatoid arthritis Hypercholesterolemia Hypertension Insomnia Family History Family History Father CAD (coronary artery disease) Mother Dementia CAD (coronary artery disease) Sister Breast cancer Depression Surgical History Surgical History History of hysteroscopy History of thyroid surgery History of parathyroid surgery H/O wrist surgery History of tonsillectomy History of section Social History Social History Housing: House Are you a primary primary care sales representative to a significant other at home: No Do you presently have visiting nurse or other home services: No Alcohol intake: current Alcohol intake frequency: does not drink Patient Tobacco Use Status: Never used Tobacco e-Cigarette/Vaping Use: Never Used Second Hand Smoke Exposure: No Advance Directives: No Advance Directives Information Provided: Yes service: No Current occupational status: employed Current occupational exposures/hazards: No Cognitive needs: No Hearing needs: No Vision needs: Yes Meds Allergies Allergy/AdvReac Type Severity Reaction Status Date / Time ciprofloxacin [Cipro] Allergy Unknown rash Verified 03/19/23 08:29 amlodipine AdvReac Intermediate swelling Verified 03/19/23 08:29 Home Medications ?Medication ?Instructions ?Recorded ?Confirmed ?Last Taken ?Type methotrexate sodium 2.5 mg tablet 10 mg PO QWEEK 12/07/21 04/10/23 Unknown History misoprostol 200 mcg tablet 200 mcg PO BID 05/29/22 04/10/23 Unknown History norethindrone acetate 5 mg tablet 5 mg PO DAILY 05/29/22 04/10/23 Unknown History Exam Airway Mallampati Class: II TM Dist: >3cm Neck ROM: Full Heart: rrr Lungs: cta Assessment and Plan Assessment Anesthesia Assessment: Anesthesia Plan Discussed Final Anesthetic Review NPO: Yes Final Preanesthetic Review: No Changes in Pt Med Stat, Meds/Allgs Chart Reviewed, Consent Obtained/Reviewed and Anes Risks/Benef Reviewed Patient Risk: Intermediate Procedure Risk: Intermediate Anesthetic Plan Anesthetic Plan: GA Disposition: Standard PACU
[2023-07-23] VITALS (10 sets, daily range): BP systolic 148–160; BP diastolic 59–72; PULSE 64–93; RESP 16–18; TEMP 36.6–36.8; O2SAT 96–100; BMI 29.2
[2023-07-23 13:14] LABS: Glucose, Whole Blood 139 mg/dL (60-115)
--- NOTE | 2023-07-23 13:14 | PC.NURSE ---
dr. hansen notified of hanane to hold 3 d and max to hold [address] hansen from other literature, tamia to hold both >48 hr. took in am on 07/21/23
[2023-07-23] MEDS: Lactated Ringers 1,000 ML 100 ML IVCONT (13:22)
--- NOTE | 2023-07-23 13:55 | MHC.SHP ---
Pre-Procedural Eval Section A - 24 Hr Update-Section A only Date of Service: 07/23/23 The patient is an INPATIENT: No Changes since office visit: No Cold of Flu in the past 2 weeks, No New Medical Problems, No Changes in Medication and No Patient answered all questions The patient has been examined within 24 hours of the surgical procedure. The History & Physical has been completed within 30 days and I have reviewed it.: Yes Section B - Complete if H&P > 30 days Chief Complaint: Laceration of right quadriceps muscle, fascia and Allergies: Allergies Allergy/AdvReac Type Severity Reaction Status Date / Time ciprofloxacin [Cipro] Allergy Unknown rash Verified 07/23/23 13:25 amlodipine AdvReac Intermediate swelling Verified 07/23/23 13:25 Plan I have reviewed the history and physical and performed a pertinent physical examination on my patient. No changes have occurred unless specified. Time Spent With Patient Time: Total time managing care of this patient today ____ minutes.
--- NOTE | 2023-07-23 15:36 | P.BOP_ITS ---
Brief Operative Note Date of Service: 07/23/23 Pre-op diagnosis: Right quadriceps tear Post-op diagnosis: same Procedure: Right quadriceps repair Implants: Bowers and Nephew all suture anchor x 2 Surgeon: Shakir Smith MD Anesthesia: GETA and regional Was an Roofing Applicator used for this Procedure?: Yes Roofing Applicator: Rachel Piña Estimated blood loss (mL): 100 IV fluids (mL): 500 Pathology: none sent Condition: stable Disposition: PACU
[2023-07-23] MEDS: HYDROmorphone HCl 0.5 MG/0.5 ML SYRINGE 0.25 MG IVPUSH ×2 (16:02→16:12)
[2023-07-23 16:18] LABS: Glucose, Whole Blood 132 mg/dL (60-115)
--- NOTE | 2023-07-27 08:10 | W.PM.OPN ---
Operative Note Operative Note Date of Service: 07/23/23 Narrative: Date of Service: 07/23/23 Pre-op diagnosis: Right quadriceps tear Post-op diagnosis: same Procedure: Right quadriceps repair Implants: Bowers and Nephew all suture anchor x 2 Surgeon: Shakir Smith MD Anesthesia: GETA and regional Was an Slat Basket Maker Helper used for this Procedure?: Yes Slat Basket Maker Helper: Rachel Piña Estimated blood loss (mL): 100 IV fluids (mL): 500 Pathology: none sent Condition: stable Disposition: PACU Patient was brought to the operating room and placed supine on the surgical table. She was prepped and draped in standard sterile fashion and a time out was called to identify proper site, proper procedure and IV antibiotics per weight were administered. I began by making a ~6 cm incision over the patella and distal quad tendon. I dissected down to the fascia overlying the quadriceps tendon. I incised through this and there was a near complete quadriceps tear with some of the medial fibers remaing intact (<10%). The wound was irrigated and the ends of the quadriceps was debrided and cleaned and the attachment site on the patella was debrided with a rongeur down to bleeding bone. I then placed two all suture, fiber tape loaded, anchors into the patella. One limb from each anchor was then whip stitched up and back through each side of the quadriceps tendon using Almond locking stitch. Theses limbs were then tied to their corresponding tape and re-approximated to the patellar insertion with the leg in hyper extension. The repair was anatomic. I oversewed the tendon with a fiber wire and then irrigated copiously. The fascia was closed and the sub q was closed and the skin with gabriel. Sterile dressing were applied and the patient was placed in a locked brace in extension and extubated and brought to the recovery room in stable condition. There were no known complications.
== END 2023-07-23 17:17 | disposition home or self-care (01) ==
PROVIDERS: PCP Internal Medicine; Visit Provider Orthopaedic Surgery
PROC: (CPT 27385; principal; 2023-07-23 15:00)
DX: S76.111A Strain of right quadriceps muscle, fascia and tendon, initial encounter (principal); E11.22 Type 2 diabetes mellitus with diabetic chronic kidney disease; I12.9 Hypertensive chronic kidney disease with stage 1 through stage 4 chronic kidney disease, or unspecified chronic kidney disease; N18.30 Chronic kidney disease, stage 3 unspecified; Z79.84 Long term (current) use of oral hypoglycemic drugs; Z79.899 Other long term (current) drug therapy; Z88.1 Allergy status to other antibiotic agents; W19.XXXA Unspecified fall, initial encounter; Y93.9 Activity, unspecified; Y92.9 Unspecified place or not applicable; Y99.9 Unspecified external cause status
CPT/HCPCS: 27385; 82947; J0131; J0665; J0690; J1100; J1170; J2250; J2405; J2704; J3010

== ENCOUNTER → 2023-07-23 12:30 | Outpatient (BNV) | payer OTHER, SELFPAY | PROVIDERS: PCP Internal Medicine; Visit Provider Orthopaedic Surgery | DX: S76.111A Strain of right quadriceps muscle, fascia and tendon, initial encounter (principal) | CPT/HCPCS: 27385 ==

== ENCOUNTER 2023-08-01 12:30 | Outpatient (AMB) | payer OTHER, SELFPAY ==
--- NOTE | 2023-08-01 12:35 | A.OFFVIS_ITS ---
Vital Signs 08/01/23 12:39 Height 5 ft 2.5 in Weight 163 lb BMI 29.3 Intake Visit Reasons: PO RT quad tendon repair 07/22/23 NE Intake Note: Joanna is a 62 year old female who presents today post operatively s/p PO RT quad tendon repair 07/22/23 NE. Patient she is doing okay but is uncomfortable. She is able to tolerate pain without needing to take medication. Allergies ciprofloxacin [Cipro] Allergy (Unknown, Verified 08/08/23 09:49) rash amlodipine Adverse Reaction (Intermediate, Verified 08/08/23 09:49) swelling Medication List - Last Reconciled 08/09/23 by Joshua Guajardo PA-C blood sugar diagnostic (Ark Verio test strips) test once daily cholecalciferol (vitamin D3) 125 mcg PO .2x /week diclofenac sodium 37.5 mg (1/2 x 75 mg) PO BID empagliflozin (Jardiance) 10 mg PO DAILY folic acid 1 mg PO DAILY glimepiride 2 mg PO DAILY 90 days levothyroxine 112 mcg PO DAILY 90 days lisinopril 10 mg PO DAILY metformin 500 mg PO BID methotrexate sodium 10 mg PO QWEEK misoprostol 200 mcg PO BID norethindrone acetate 5 mg PO DAILY oxycodone-acetaminophen 5-325 mg (Percocet) 1 tab PO Q4-6H PRN 7 days simvastatin 10 mg PO BEDTIME sitagliptin phosphate (Januvia) 50 mg PO DAILY 90 days triamcinolone acetonide (Nasacort Allergy) 2 sprays intranasal DAILY zolpidem (Ambien) 10 mg PO BEDTIME PRN 90 days HPI HPI PO RT quad tendon repair 07/22/23 NE: Details: 62-year-old female who returns to the office today for post-op right quad tendon repair, 07/22/[address] Smith. She states she has discomfort in her leg as well as experiences tolerable pain with not taking her medication. She is doing well overall and has no other concerns today. [facility] Medical History History of radioactive iodine thyroid ablation History of hyperparathyroidism Postoperative hypothyroidism Vitamin D deficiency Thyroid cancer Chronic kidney disease Type 2 diabetes mellitus with hyperglycemia Hypothyroid Obesity (BMI 30-39.9) Parotitis History of thyroid cancer Rheumatoid arthritis Hypercholesterolemia Hypertension Insomnia Surgical History History of hysterectomy History of hysteroscopy History of thyroid surgery History of parathyroid surgery H/O wrist surgery History of tonsillectomy History of section Family History Father CAD (coronary artery disease) Mother Dementia CAD (coronary artery disease) Sister Breast cancer Depression Social History Housing: House Are you a primary post acute care registered nurse to a significant other at home: No Do you presently have visiting nurse or other home services: No Alcohol intake: current Alcohol intake frequency: does not drink Patient Tobacco Use Status: Never used Tobacco e-Cigarette/Vaping Use: Never Used Second Hand Smoke Exposure: No service: No Current occupational status: employed Current occupational exposures/hazards: No Cognitive needs: No Hearing needs: No Vision needs: Yes Female Reproductive History Menstrual Age of Menarche: 12 Review of Systems Const All systems reviewed & are unremarkable except as noted in HPI and below Physical Exam Vital Signs: BMI result Body Mass Index 29.3 Extrem Other: Right leg: Incision clean, dry and intact. No redness or drainage. Calf supple, nontender. NVI. Results Reviewed Results Reviewed: Brief Operative Note Date of Service: 07/23/23 Pre-op diagnosis: Right quadriceps tear Post-op diagnosis: same Procedure: Right quadriceps repair Implants: Bowers and Nephew all suture anchor x 2 Surgeon: Shakir Smith MD Assessment & Plan Assessment & Plan (1) Rupture of right quadriceps tendon: Code(s): S76.111A - Strain of right quadriceps muscle, fascia and tendon, initial encounter Category: Medical Qualifiers: Encounter type: subsequent encounter Qualified Code(s): S76.111D - Strain of right quadriceps muscle, fascia and tendon, subsequent encounter Plan Sutures removed today, steri strips applied. She will begin a course of physical therapy to work on gait training. She was placed in brace locked into extension and she will unlock the brace 10 degrees starting from next week and unlock 10 degrees every 2 weeks. She will return in 4 weeks, sooner if needed. Orders: Orders PT Evaluation and Treatment 08/01/23 S76.111A - Strain of right quadriceps muscle, fascia and tendon, initial encounter Patient Instructions: Scribed for Joshua Guajardo PA-C, by Blas Adamson medical assisting instructor, on 08/01/2023 at 12:30 PM EST.? I, Joshua Guajardo PA-C, have personally reviewed and agree with the information entered by the scribe. Coding Level of Care Code Global (43044) Diagnoses Rupture of right quadriceps tendon, subsequent encounter S76.111D Encounter type: subsequent encounter
[2023-08-01 12:39] VITALS: BMI 29.3
== END 2023-08-01 13:28 | disposition home or self-care (01) ==
PROVIDERS: PCP Internal Medicine; Visit Provider Physician Assistant
DX: S76.111D Strain of right quadriceps muscle, fascia and tendon, subsequent encounter (principal)
CPT/HCPCS: 99024

== ENCOUNTER → 2023-08-01 12:30 | Outpatient (BNVA) | payer OTHER, SELFPAY | PROVIDERS: PCP Internal Medicine; Visit Provider Physician Assistant ==

== ENCOUNTER 2023-08-08 09:25 | Outpatient (AMB) | payer OTHER, SELFPAY ==
--- NOTE | 2023-08-08 09:45 | HO.NEPHOV_ITS ---
Vital Signs 08/08/23 09:46 Height 5 ft 2.5 in Weight 162 lb 4 oz BMI 29.2 BP 124/60 Blood Pressure Location Rt brachial Position Sitting Pulse 73 Pulse Source Pulse Oximeter Pulse Oximetry (%) 96 Oxygen Delivery Method Room Air Intake Visit Reasons: CKD/ 4 Months FU/ LVM News Department Intern Required: No Accompanied by: Self / Same As Patient Allergies ciprofloxacin [Cipro] Allergy (Unknown, Verified 08/08/23 09:49) rash amlodipine Adverse Reaction (Intermediate, Verified 08/08/23 09:49) swelling HPI Comments Details: I had the privilege of seeing Joanna in follow up of care of for her CKD. She had seen a c software developer in [facility] where she follows up with her Maintenance Department Technician for her Rheumatoid Arthritis. She has long standing history of diabetes mellitus and hypertension with no H/O significant proteinuria in addition to her other medical issues including hypothyroidism (postoperative from thyroid cancer), hypercholesterolemia, osteoarthritis as well as primary hyperparathyroidism status post parathyroidectomy.She has no hypoglycemic episodes.Her serum creatinine had been around 1.4 for some time . She has H/O renal stones. She regularly takes NSAID's for her joint issues while she is on ACEI. She is on MTX as well as Jardiance. She denied any CAD, CVA, VENTURA, PAD or CHF. She denies any hematuria but has H/O renal stones. She tries to keep herself hydrated. She has no nausea, vomiting, diarrhea, SOB, PND, orthopnea , pedal edema or new skin rashes. Her last serum creatinine was 1.3 PFSH Medical History History of radioactive iodine thyroid ablation History of hyperparathyroidism Postoperative hypothyroidism Vitamin D deficiency Thyroid cancer Chronic kidney disease Type 2 diabetes mellitus with hyperglycemia Hypothyroid Obesity (BMI 30-39.9) Parotitis History of thyroid cancer Rheumatoid arthritis Hypercholesterolemia Hypertension Insomnia Surgical History History of hysterectomy History of hysteroscopy History of thyroid surgery History of parathyroid surgery H/O wrist surgery History of tonsillectomy History of section Family History Father CAD (coronary artery disease) Mother Dementia CAD (coronary artery disease) Sister Breast cancer Depression Social History Housing: House Are you a primary infant caregiver to a significant other at home: No Do you presently have visiting nurse or other home services: No Alcohol intake: current Alcohol intake frequency: does not drink Patient Tobacco Use Status: Never used Tobacco e-Cigarette/Vaping Use: Never Used Second Hand Smoke Exposure: No service: No Current occupational status: employed Current occupational exposures/hazards: No Cognitive needs: No Hearing needs: No Vision needs: Yes Female Reproductive History Menstrual Age of Menarche: 12 Physical Exam Vital Signs: Last Vital Signs Pulse 73 08/08/23 09:46 BP 124/60 08/08/23 09:46 Pulse Ox 96 08/08/23 09:46 Oxygen Delivery Method Room Air 08/08/23 09:46 BMI result Body Mass Index 29.2 Const General: no acute distress Eyes EOM: EOMs intact bilaterally Neck Neck: Yes no JVD Resp Auscultation: diminished lung sounds Cardio Rate: regular rate GI Palpation (GI): Soft to palpation Results Reviewed Nephrology Results: Hgb 16.3 g/dl (12.0-16.0) H 06/05/23 WBC 3.7 X10*3/uL (4.8-10.8) L 06/05/23 Plt Count 201 X10*3/uL (160-400) 06/05/23 Sodium 134 mmol/L (135-145) L 06/05/23 Potassium 4.1 mmol/L (3.3-5.1) 06/05/23 Chloride 111 mmol/L (96-108) H 06/05/23 Carbon Dioxide 15 mmol/L (22-29) L 06/05/23 BUN 23 mg/dL (9-16) H 06/05/23 Creatinine 1.33 mg/dL (0.5-1.4) 06/05/23 Calcium 9.9 mg/dL (8.4-10.2) 07/15/23 Urine Creatinine 57.08 mg/dL 06/05/23 Assessment & Plan Assessment & Plan (1) CKD (chronic kidney disease) stage 3, GFR 30-59 ml/min: Code(s): N18.30 - Chronic kidney disease, stage 3 unspecified Category: Medical Qualifiers: Chronic kidney disease stage 3 subtype: stage 3a (GFR 45-59) Qualified Code(s): N18.31 - Chronic kidney disease, stage 3a (2) Hypertension: Code(s): I10 - Essential (primary) hypertension Category: Medical Qualifiers: Hypertension type: essential hypertension Qualified Code(s): I10 - Essential (primary) hypertension Plan Joanna has CKD 3 likely from vascular disease on a backdrop of DM and HTN. She has RA and is on MTX as well as NSAID's. She takes ACEI as well as Jardiance. She has no H/O proteinuria. Her BP has been at goal. She needs to maintain good hydration. Imaging reviewed . She does not need a renal biopsy which I plan to continue to discuss further with her with time. Further management is pending evolving data. Orders: Orders Blood Urea Nitrogen Today N18.31 - Chronic kidney disease, stage 3a Electrolytes 4 Months N18.31 - Chronic kidney disease, stage 3a Creatinine Today N18.31 - Chronic kidney disease, stage 3a Electrolytes Today N18.31 - Chronic kidney disease, stage 3a Creatinine 4 Months N18.31 - Chronic kidney disease, stage 3a Blood Urea Nitrogen 4 Months N18.31 - Chronic kidney disease, stage 3a Coding Level of Care Code Est Pt Level 4 (82024) Diagnoses Stage 3a chronic kidney disease N18.31 Chronic kidney disease stage 3 subtype: stage 3a (GFR 45-59) Essential hypertension I10 Hypertension type: essential hypertension
[2023-08-08 09:46] VITALS: BP 124/60; PULSE 73; O2SAT 96; BMI 29.2
== END 2023-08-08 10:18 | disposition home or self-care (01) ==
PROVIDERS: PCP Internal Medicine; Visit Provider Internal Medicine Nephrology
DX: N18.31 Chronic kidney disease, stage 3a (principal); I10 Essential (primary) hypertension
CPT/HCPCS: 99214

== ENCOUNTER 2023-08-08 09:25 | Outpatient (REF) | payer OTHER, SELFPAY ==
[2023-08-08 12:33] LABS: Anion Gap 14 (12-20); Blood Urea Nitrogen 23 mg/dL (9-16); Carbon Dioxide 22 mmol/L (22-29); Chloride 108 mmol/L (96-108); Estimated Glomerular Filt Rate 38; Potassium 4.4 mmol/L (3.3-5.1); Sodium 140 mmol/L (135-145)
== END 2023-08-08 09:26 | disposition home or self-care (01) ==
LOC: HO.LAB 09:25
PROVIDERS: PCP Internal Medicine; Visit Provider Internal Medicine Nephrology
DX: I12.9 Hypertensive chronic kidney disease with stage 1 through stage 4 chronic kidney disease, or unspecified chronic kidney disease (principal); N18.31 Chronic kidney disease, stage 3a
CPT/HCPCS: 36415; 80051; 82565; 84520

== ENCOUNTER 2023-08-29 07:59 | Outpatient (AMB) | payer OTHER, SELFPAY ==
--- NOTE | 2023-08-29 08:06 | MHC.OFFVIS ---
Vital Signs 08/29/23 08:08 Height 5 ft 2.5 in Weight 162 lb BMI 29.2 Intake Visit Reasons: PO Rt quad tendon repair Intake Note: Joanna is a 62 year old female who presents today post operatively s/p PO Right quad tendon repair 07/22/23 w/ NE. Patient reports she started PT and it is going very well, she is bending at 57 degrees. She expresses occasional discomfort. She would like to know when would she be able to start driving again and also if it would be acceptable to start moisturizing her leg, she feels the dryness is making it difficult to bend. Allergies ciprofloxacin [Cipro] Allergy (Unknown, Verified 08/29/23 08:09) rash amlodipine Adverse Reaction (Intermediate, Verified 08/29/23 08:09) swelling HPI HPI PO Rt quad tendon repair: Details: 63-year-old female who presents in the office today 1 month status post right quadriceps repair, which was performed on 07/23/[address] Smith. The patient was last seen in the office on 08/01/2023 by Joshua Guajardo PA-C, when she was referred to PT. She was placed in a brace locked in extension with a plan to unlock the brace ten degrees weekly. ? ? While in the office today, the patient confirms she is attending PT and reports it is going very well. She states she is bending 57 degrees. She expresses occasional discomfort. ? ? The patient wants to ask about when she can return to driving and moisturize her skin on the right lower extremity. She states she feels the dry skin is affecting her ability to bend. ? [facility] Medical History History of radioactive iodine thyroid ablation History of hyperparathyroidism Postoperative hypothyroidism Vitamin D deficiency Thyroid cancer Chronic kidney disease Type 2 diabetes mellitus with hyperglycemia Hypothyroid Obesity (BMI 30-39.9) Parotitis History of thyroid cancer Rheumatoid arthritis Hypercholesterolemia Hypertension Insomnia Surgical History History of hysterectomy History of hysteroscopy History of thyroid surgery History of parathyroid surgery H/O wrist surgery History of tonsillectomy History of section Family History Father CAD (coronary artery disease) Mother Dementia CAD (coronary artery disease) Sister Breast cancer Depression Social History Housing: House Are you a primary auto care center manager to a significant other at home: No Do you presently have visiting nurse or other home services: No Alcohol intake: current Alcohol intake frequency: does not drink Patient Tobacco Use Status: Never used Tobacco e-Cigarette/Vaping Use: Never Used Second Hand Smoke Exposure: No service: No Current occupational status: employed Current occupational exposures/hazards: No Cognitive needs: No Hearing needs: No Vision needs: Yes Female Reproductive History Menstrual Age of Menarche: 12 Review of Systems Const All systems reviewed & are unremarkable except as noted in HPI and below Physical Exam Vital Signs: BMI result Body Mass Index 29.2 Const General: cooperative, healthy appearing and no acute distress Resp Effort & Inspection: normal respiratory effort and able to speak in complete sentences Cardio Rate: regular rate Peripheral pulses: Peripheral pulses 2+ throughout GI Palpation (GI): Soft to palpation Skin Lesions: no lesions Rashes: no rashes Extrem Other: Right lower extremity: Incision site is clean, dry, and intact. No surrounding erythema or drainage. No signs of infection. ROM is 0-55 degrees. NVI.? Assessment & Plan Assessment & Plan (1) Rupture of right quadriceps tendon: Comment: Right quadriceps repair 07/23/2023 [place] Code(s): S76.111A - Strain of right quadriceps muscle, fascia and tendon, initial encounter Category: Medical Qualifiers: Encounter type: subsequent encounter Qualified Code(s): S76.111D - Strain of right quadriceps muscle, fascia and tendon, subsequent encounter Plan Ms. Tse is a 63-year-old female who presents in the office today 1 month status post right quadriceps repair, which was performed on 07/23/[address] Smith. The patient was last seen in the office on 08/01/2023 by Joshua Guajardo PA-C, when she was referred to PT. She was placed in a brace locked in extension with a plan to unlock the brace ten degrees weekly. ? ? While in the office today, the patient confirms she is attending PT and reports it is going very well. She states she is bending 57 degrees. She expresses occasional discomfort. ? ? The patient will continue to work with PT on ROM. She plans to go on vacation in [facility] in two weeks. She is cleared to swim at this time. I do recommend for the patient to request pool exercises from PT while she is there. The patient asked about being cleared to drive. At this time, she does not have good quad control or ROM and is unable to drive. Follow-up will be in six weeks, or sooner if needed. ? Patient Instructions: Scribed by Sameera Colbert medical facilities section director, for Rachel Piña PA-C on 08/29/2023 at 8:19 am, EST.? Coding Level of Care Code Global (39570) Diagnoses Rupture of right quadriceps tendon, subsequent encounter S76.111D Encounter type: subsequent encounter
[2023-08-29 08:08] VITALS: BMI 29.2
== END 2023-08-29 08:22 | disposition home or self-care (01) ==
PROVIDERS: PCP Internal Medicine; Visit Provider Physician Assistant
DX: S76.111D Strain of right quadriceps muscle, fascia and tendon, subsequent encounter (principal)
CPT/HCPCS: 99024

== ENCOUNTER → 2023-08-29 07:59 | Outpatient (BNVA) | payer OTHER, SELFPAY | PROVIDERS: PCP Internal Medicine; Visit Provider Physician Assistant ==

== ENCOUNTER 2023-09-09 14:16 | Outpatient (AMB) | payer OTHER, SELFPAY ==
--- NOTE | 2023-09-09 14:26 | A.OFFVIS_ITS ---
Intake Visit Reasons: PO-Rt quad tendon repair-F/U drainage/swelling Intake Note: Joanna is a 62 year old female who presents today post operatively s/p PO Right quad tendon repair 07/22/23 w/ NE. Patient reports some leaking about a week ago. She states that she has been doing very well with PT. Allergies ciprofloxacin [Cipro] Allergy (Unknown, Verified 09/09/23 14:32) rash amlodipine Adverse Reaction (Intermediate, Verified 09/09/23 14:32) swelling HPI HPI PO-Rt quad tendon repair-F/U drainage/swelling: Details: 63-year-old female who presents in the office today 7 weeks status post right quadriceps repair, which was performed on 07/23/[address] Smith. I last saw the patient in the office on 08/29/23 when she was to continue to work with physical therapy.? ? While in the office today, the patient reports leaking from the incision site about a week ago. She confirms participating in physical therapy and states it is going well. ? [facility] Medical History History of radioactive iodine thyroid ablation History of hyperparathyroidism Postoperative hypothyroidism Vitamin D deficiency Thyroid cancer Chronic kidney disease Type 2 diabetes mellitus with hyperglycemia Hypothyroid Obesity (BMI 30-39.9) Parotitis History of thyroid cancer Rheumatoid arthritis Hypercholesterolemia Hypertension Insomnia Surgical History History of hysterectomy History of hysteroscopy History of thyroid surgery History of parathyroid surgery H/O wrist surgery History of tonsillectomy History of section Family History Father CAD (coronary artery disease) Mother Dementia CAD (coronary artery disease) Sister Breast cancer Depression Social History Housing: House Are you a primary director medicare sales to a significant other at home: No Do you presently have visiting nurse or other home services: No Alcohol intake: current Alcohol intake frequency: does not drink Patient Tobacco Use Status: Never used Tobacco e-Cigarette/Vaping Use: Never Used Second Hand Smoke Exposure: No service: No Current occupational status: employed Current occupational exposures/hazards: No Cognitive needs: No Hearing needs: No Vision needs: Yes Female Reproductive History Menstrual Age of Menarche: 12 Review of Systems Const All systems reviewed & are unremarkable except as noted in HPI and below Physical Exam Const General: cooperative, healthy appearing and no acute distress Resp Effort & Inspection: normal respiratory effort and able to speak in complete sentences Cardio Rate: regular rate Peripheral pulses: Peripheral pulses 2+ throughout GI Palpation (GI): Soft to palpation Skin Lesions: no lesions Rashes: no rashes Extrem Other: Right knee: Pea sized area at the distal incision site had a retained sub-q suture. No surrounding erythema or drainage. No purulent discharge. Able to perform a straight leg raise. Slightly able to perform flexion. No palpable d eformity at the quad or patellar tendon. NVI. ? Assessment & Plan Assessment & Plan (1) Rupture of right quadriceps tendon: Comment: Right quadriceps repair 07/23/2023 [place] Code(s): S76.111A - Strain of right quadriceps muscle, fascia and tendon, initial encounter Category: Medical Qualifiers: Encounter type: subsequent encounter Qualified Code(s): S76.111D - Strain of right quadriceps muscle, fascia and tendon, subsequent encounter Plan Ms. Tse is a 63-year-old female who presents in the office today 7 weeks status post right quadriceps repair, which was performed on 07/23/[address] Smith. I last saw the patient in the office on 08/29/23 when she was to continue to work with physical therapy.? ? While in the office today, the patient reports leaking from the incision site about a week ago. She confirms participating in physical therapy and states it is going well.? ? The patient is planning to go on vacation in the next week and is concerned for a possible infection. Out of an abundance of caution a prescription for cephalexin 500 mg BID was sent to the pharmacy. She was educated on signs of infection, which are as follows but not limited to erythema, edema, drainage, or warmth. If she is to experience any of these symptoms, she must contact the office immediately or present to the ED.?I would like for her to follow up after her vacation for a wound check. Follow-up will be after the patient returns, or sooner if needed. ? Medications: New cephalexin 500 mg PO BID 20 caps 0RF 10 days Patient Instructions: Scribed by Sameera Colbert medical communication specialist, for Rachel MOMINC on 09/09/2023 at 3:02 pm, EST.? Coding Level of Care Code Global (19887) Diagnoses Rupture of right quadriceps tendon, subsequent encounter S76.111D Encounter type: subsequent encounter
== END 2023-09-09 14:46 | disposition home or self-care (01) ==
PROVIDERS: PCP Internal Medicine; Visit Provider Physician Assistant
DX: S76.111D Strain of right quadriceps muscle, fascia and tendon, subsequent encounter (principal)
CPT/HCPCS: 99024

== ENCOUNTER → 2023-09-09 14:16 | Outpatient (BNVA) | payer OTHER, SELFPAY | PROVIDERS: PCP Internal Medicine; Visit Provider Physician Assistant ==

== ENCOUNTER 2023-10-10 09:20 | Outpatient (AMB) | payer OTHER, SELFPAY ==
--- NOTE | 2023-10-10 09:26 | A.OFFVIS_ITS ---
Intake Visit Reasons: PO Rt quad tendon repair-follow up Intake Note: Joanna is a 62 year old female who presents today post operatively s/p PO Right quad tendon repair 07/22/23 w/ NE. Patient reports she is doing well. She mentions she has been working with PT which makes her a little sore. Allergies ciprofloxacin [Cipro] Allergy (Unknown, Verified 10/10/23 09:29) rash amlodipine Adverse Reaction (Intermediate, Verified 10/10/23 09:29) swelling HPI HPI PO Rt quad tendon repair-follow up: Details: 63-year-old female who presents in the office today for a wound check; 11 weeks and 2 days?status post right quadriceps repair, which was performed on 07/23/[address] Smith. I last saw the patient in the office on 09/09/23 when she was reported she was going on vacation in a week and was concerned about a possible infection. Out of an abundance of caution a prescription for cephalexin 500 mg BID was sent to the pharmacy.?? ? While in the office today, the patient reports she is doing well. She confirms participating in physical therapy, which she states makes her a bit sore. ? [facility] Medical History History of radioactive iodine thyroid ablation History of hyperparathyroidism Postoperative hypothyroidism Vitamin D deficiency Thyroid cancer Chronic kidney disease Type 2 diabetes mellitus with hyperglycemia Hypothyroid Obesity (BMI 30-39.9) Parotitis History of thyroid cancer Rheumatoid arthritis Hypercholesterolemia Hypertension Insomnia Surgical History History of hysterectomy History of hysteroscopy History of thyroid surgery History of parathyroid surgery H/O wrist surgery History of tonsillectomy History of section Family History Father CAD (coronary artery disease) Mother Dementia CAD (coronary artery disease) Sister Breast cancer Depression Social History Housing: House Are you a primary acute care physical therapist to a significant other at home: No Do you presently have visiting nurse or other home services: No Alcohol intake: current Alcohol intake frequency: does not drink Patient Tobacco Use Status: Never used Tobacco e-Cigarette/Vaping Use: Never Used Second Hand Smoke Exposure: No service: No Current occupational status: employed Current occupational exposures/hazards: No Cognitive needs: No Hearing needs: No Vision needs: Yes Female Reproductive History Menstrual Age of Menarche: 12 Review of Systems Const All systems reviewed & are unremarkable except as noted in HPI and below Physical Exam Const General: cooperative, healthy appearing and no acute distress Resp Effort & Inspection: normal respiratory effort and able to speak in complete sentences Cardio Rate: regular rate Peripheral pulses: Peripheral pulses 2+ throughout GI Palpation (GI): Soft to palpation Skin Lesions: no lesions Rashes: no rashes Extrem Other: Right knee: Incision site is well approximated and completely healed and well approximated. No signs of infection. ROM is 0-90 degrees. NVI. Assessment & Plan Assessment & Plan (1) Rupture of right quadriceps tendon: Comment: Right quadriceps repair 07/23/2023 [place] Code(s): S76.111A - Strain of right quadriceps muscle, fascia and tendon, initial encounter Category: Medical Qualifiers: Encounter type: subsequent encounter Qualified Code(s): S76.111D - Strain of right quadriceps muscle, fascia and tendon, subsequent encounter Plan Ms. Tse is a 63-year-old female who presents in the office today for a wound check; 11 weeks and 2 days?status post right quadriceps repair, which was performed on 07/23/[address] Smith. I last saw the patient in the office on 09/09/23 when she was reported she was going on vacation in a week and was concerned about a possible infection. Out of an abundance of caution a prescription for cephalexin 500 mg BID was sent to the pharmacy.?? ? While in the office today, the patient reports she is doing well. She confirms participating in physical therapy, which she states makes her a bit sore.? ? The patient will continue to work with physical therapy on ROM and quad strengthening. Her goal is to wean out of the brace in the next few weeks. Follow-up will be in six weeks, or sooner if needed.? Patient Instructions: Scribed by Sameera Colbert claim review medical director, for Rachel Piña PA-C on 10/10/2023 at 9:38 am, EST.? Coding Level of Care Code Global (89173) Diagnoses Rupture of right quadriceps tendon, subsequent encounter S76.111D Encounter type: subsequent encounter
== END 2023-10-10 09:42 | disposition home or self-care (01) ==
PROVIDERS: PCP Internal Medicine; Visit Provider Physician Assistant
DX: S76.111D Strain of right quadriceps muscle, fascia and tendon, subsequent encounter (principal)
CPT/HCPCS: 99024

== ENCOUNTER → 2023-10-10 09:20 | Outpatient (BNVA) | payer OTHER, SELFPAY | PROVIDERS: PCP Internal Medicine; Visit Provider Physician Assistant ==

== ENCOUNTER 2023-10-17 07:24 | Outpatient (REF) | payer OTHER, SELFPAY ==
--- NOTE | ~2023-10-17 | MM_ITS ---
EXAMINATION: MM SCREENING DIGITAL BREAST TOMOSYNTHESIS, BILATERAL CLINICAL INFORMATION: Screening. Asymptomatic. COMPARISON: Mammography: This study is compared with prior exams dating back to 2016 TECHNIQUE: Digital breast tomosynthesis is performed in both the craniocaudal and mediolateral oblique views along with computer-aided detection (CAD). Synthesized 2D images are generated from the tomosynthesis. FINDINGS: There are scattered areas of fibroglandular density (ACR BI-RADS breast composition Category b). Bilateral circumscribed oval masses which wax and wane consistent with benign fibrocystic changes some were demonstrated to be simple to minimally corticated cyst on prior ultrasounds. There are no significant masses, abnormal calcifications, or other abnormalities. MM/MM tomosynthesis screening BI IMPRESSION: No mammographic evidence of malignancy. ASSESSMENT: BI-RADS BI-RADS 2 - Benign Findings RECOMMENDATION: Routine annual mammography screening. 1 year F/U This examination should not preclude the clinical evaluation of a suspicious palpable abnormality. This patient's information was entered into a reminder system with a target due date for their next mammogram. Electronically signed by: Gretchen Villa DO 10/30/2023 06:37 PM EDT
== END 2023-10-17 07:25 | disposition home or self-care (01) ==
LOC: HO.MAMMO 07:24
PROVIDERS: PCP Internal Medicine; Visit Provider Internal Medicine
DX: Z12.31 Encounter for screening mammogram for malignant neoplasm of breast (principal)
CPT/HCPCS: 77063; 77067

== ENCOUNTER → 2023-10-17 07:30 | Outpatient (BNV) | payer OTHER, SELFPAY | PROVIDERS: PCP Internal Medicine; Visit Provider Internal Medicine | DX: Z12.31 Encounter for screening mammogram for malignant neoplasm of breast (principal) | CPT/HCPCS: 77063; 77067 ==

== ENCOUNTER 2023-11-21 09:56 | Outpatient (AMB) | payer OTHER, SELFPAY ==
--- NOTE | 2023-11-21 10:09 | MHC.OFFVIS ---
Vital Signs 11/21/23 10:14 Height 5 ft 2.5 in Weight 162 lb BMI 29.2 Intake Visit Reasons: OV- Rt quad tendon repair-follow up Intake Note: Joanna is a 63 year old female who presents today for a follow up of her right leg s/p Right Quad Tendon Repair 07/22/23.Patient states that she has been doing well, minimal pain at times. Patient has PT as schedued. Over all she is doing well. Allergies ciprofloxacin [Cipro] Allergy (Unknown, Verified 11/21/23 10:09) rash amlodipine Adverse Reaction (Intermediate, Verified 11/21/23 10:09) swelling HPI HPI OV- Rt quad tendon repair-follow up: Details: Joanna is a 63 year old female who presents today for a follow up of her right leg s/p Right Quad Tendon Repair 07/22/23.Patient states that she has been doing well, minimal pain at times. Patient has PT as schedued. Over all she is doing well. [facility] Medical History History of radioactive iodine thyroid ablation History of hyperparathyroidism Postoperative hypothyroidism Vitamin D deficiency Thyroid cancer Chronic kidney disease Type 2 diabetes mellitus with hyperglycemia Hypothyroid Obesity (BMI 30-39.9) Parotitis History of thyroid cancer Rheumatoid arthritis Hypercholesterolemia Hypertension Insomnia Surgical History History of hysterectomy History of hysteroscopy History of thyroid surgery History of parathyroid surgery H/O wrist surgery History of tonsillectomy History of section Family History Father CAD (coronary artery disease) Mother Dementia CAD (coronary artery disease) Sister Breast cancer Depression Social History Housing: House Are you a primary career resource specialist to a significant other at home: No Do you presently have visiting nurse or other home services: No Alcohol intake: current Alcohol intake frequency: does not drink Patient Tobacco Use Status: Never used Tobacco e-Cigarette/Vaping Use: Never Used Second Hand Smoke Exposure: No service: No Current occupational status: employed Current occupational exposures/hazards: No Cognitive needs: No Hearing needs: No Vision needs: Yes Female Reproductive History Menstrual Age of Menarche: 12 Physical Exam Vital Signs: BMI result Body Mass Index 29.2 Extrem Other: Well-healed incision right knee 0-130 degrees of motion No palpable defect Assessment & Plan Assessment & Plan (1) Rupture of right quadriceps tendon: Comment: Right quadriceps repair 07/23/2023 NE Code(s): S76.111A - Strain of right quadriceps muscle, fascia and tendon, initial encounter Category: Medical Qualifiers: Encounter type: subsequent encounter Qualified Code(s): S76.111D - Strain of right quadriceps muscle, fascia and tendon, subsequent encounter Plan: Status post right quad repair 4 months ago. She is doing well. Continue strengthening with PT. Follow up p.r.n.. Coding Level of Care Code Est Pt Level 3 (15715) Diagnoses Rupture of right quadriceps tendon, subsequent encounter S76.111D Encounter type: subsequent encounter
[2023-11-21 10:14] VITALS: BMI 29.2
== END 2023-11-21 10:28 | disposition home or self-care (01) ==
PROVIDERS: PCP Internal Medicine; Visit Provider Orthopaedic Surgery
DX: S76.111D Strain of right quadriceps muscle, fascia and tendon, subsequent encounter (principal)
CPT/HCPCS: 99212

== ENCOUNTER → 2023-11-21 09:56 | Outpatient (BNVA) | payer OTHER, SELFPAY | PROVIDERS: PCP Internal Medicine; Visit Provider Orthopaedic Surgery ==

== ENCOUNTER 2023-11-26 07:30 | Outpatient (REF) | payer OTHER, SELFPAY ==
[2023-11-26 08:30] LABS: Anion Gap 13 (12-20); Blood Urea Nitrogen 27 mg/dL (9-16); Carbon Dioxide 20 mmol/L (22-29); Chloride 113 mmol/L (96-108); Estimated Glomerular Filt Rate 38; Potassium 4.5 mmol/L (3.3-5.1); Sodium 141 mmol/L (135-145)
[2023-11-26 08:51] LABS: TSH reflex Free T4 0.09 uIU/mL (0.32-4.0)
[2023-11-26 11:41] LABS: Free T4 (Free Thyroxine) 1.54 ng/dL (0.71-1.85)
[2023-12-01 22:49] LABS: Thyroglobulin Antibody <1 IU/mL (<=1); Thyroglobulin Level 0.1 ng/mL
== END 2023-11-26 07:31 | disposition home or self-care (01) ==
LOC: HO.LAB 07:30
PROVIDERS: Absent Provider Internal Medicine; PCP Internal Medicine; Referring Provider Internal Medicine Nephrology; Visit Provider Internal Medicine
DX: E03.9 Hypothyroidism, unspecified (principal); N18.31 Chronic kidney disease, stage 3a
CPT/HCPCS: 36415; 80051; 82565; 84432; 84439; 84443; 84520; 86800

== ENCOUNTER 2023-12-01 16:55 | Outpatient (REF) | payer OTHER, SELFPAY ==
[2023-12-01 17:03] LABS: Appearance Urine Clear; Color Urine Yellow; Glucose Urine UA >=1000 mg/dL (Negative); Leukocyte Esterase Urine Negative (Negative); Nitrite Urine Negative (Negative); PH 5.5 (5.0-9.0); Specific Gravity - Urine 1.025 (1.005-1.025); UMIC TRIGGER UA YES; Urine Blood Negative (Negative); Urine Ketones Negative (Negative); Urine Protein Negative (Neg-Trace)
[2023-12-01 17:08] LABS: Bacteria Urine None Seen (None Seen); Hyaline Casts Urine 0-2 /LPF (0-2); RBC Urine 0-2 /HPF (0-2); Squamous Epithelial Cell Urine 0-2 /HPF (0-2); WBC Urine 0-5 /HPF (0-5)
[2023-12-01 18:04] LABS: Creatinine Urine 120.38 mg/dL
== END 2023-12-01 16:56 | disposition home or self-care (01) ==
LOC: HO.LNP 16:55
PROVIDERS: Internal Medicine Nephrology; Visit Provider Internal Medicine
DX: E11.65 Type 2 diabetes mellitus with hyperglycemia (principal); G47.00 Insomnia, unspecified
CPT/HCPCS: 81001; 81003; 82570

== ENCOUNTER 2023-12-02 08:44 | Outpatient (AMB) | payer OTHER, SELFPAY ==
--- NOTE | 2023-12-02 08:47 | MHC.PC.OV ---
Vital Signs 12/02/23 08:48 Height 5 ft 2.5 in Weight 167 lb BMI 30.1 BP 120/60 Blood Pressure Location Lt brachial Position Sitting Pulse 72 Pulse Source Pulse Oximeter Pulse Oximetry (%) 95 Oxygen Delivery Method Room Air Intake Visit Reasons: dm - see comments Intake Note: Patient is here to follow up on DM. Battery Stacker Required: No Oracle Iam Consultant: Not Required per policy Accompanied by: Self / Same As Patient Allergies ciprofloxacin [Cipro] Allergy (Unknown, Verified 12/02/23 08:48) rash amlodipine Adverse Reaction (Intermediate, Verified 12/02/23 08:48) swelling Tobacco use date assessed: 12/02/23 Fall risk assessment: 1 Fall in past year Last assessed Fall Risk: 12/02/23 Dental Screening Dental Screen Date: 03/19/23 HPI dm - see comments HPI Details 63-year-old obese female with rheumatoid arthritis hypertension hypercholesterolemia diabetes mellitus history of thyroid cancer chronic kidney disease hypothyroidism hyperparathyroidism coming in for follow-up last seen in March having sinus problems. Patient's mammogram is up-to-date October 2023 bone density was done in 04/29/2021 Cologuard test 04/29/2020 review of the notes follows up with orthopedics November 2023 status post right quad tendon repair July 22 2023 and on physical therapy. Patient also follows up with Nephrology chronic kidney disease stage 3 vascular disease with diabetes and hypertension. Advised hydration ER visit in July right lower extremity pain after falling down few stairs. States landed on left side but having right-sided pain. Surgery done 07/23/2023 preop diagnosis of right quadriceps tear. Received also notes from total abdominal hysterectomy 06/09/2023 with bilateral salpingo-oophorectomy. Last ultrasound of the thyroid done 05/30/2022 showing small bilateral cervical lymph node largest lymph node is level 4 on the left which is increase in size to new cervical lymph nodes right. [facility] Medical History History of radioactive iodine thyroid ablation History of hyperparathyroidism Postoperative hypothyroidism Vitamin D deficiency Thyroid cancer Chronic kidney disease Type 2 diabetes mellitus with hyperglycemia Hypothyroid Obesity (BMI 30-39.9) Parotitis History of thyroid cancer Rheumatoid arthritis Hypercholesterolemia Hypertension Insomnia Surgical History History of hysterectomy History of hysteroscopy History of thyroid surgery History of parathyroid surgery H/O wrist surgery History of tonsillectomy History of section Family History Father CAD (coronary artery disease) Mother Dementia CAD (coronary artery disease) Sister Breast cancer Depression Social History (Updated 12/02/23 @ 08:54 by LONNIE Cortes) Housing: House Are you a primary lead care manager to a significant other at home: No Do you presently have visiting nurse or other home services: No Alcohol intake: current Alcohol intake frequency: holidays/special occasions only Patient Tobacco Use Status: Never used Tobacco e-Cigarette/Vaping Use: Never Used Second Hand Smoke Exposure: No service: No Current occupational status: employed Current occupational exposures/hazards: No Cognitive needs: No Hearing needs: No Vision needs: Yes Female Reproductive History Menstrual Age of Menarche: 12 Questionnaire PHQ-9 Over the last 2 weeks, how often have you been bothered by any of the following problems? 1. Little interest or pleasure in doing things: not at all 2. Feeling down, depressed, or hopeless: not at all 3. Trouble falling or staying asleep, or sleeping too much: not at all 4. Feeling tired or having little energy: not at all 5. Poor appetite or overeating: not at all 6. Feeling bad about yourself - or that you are a failure or have let yourself or your family down: not at all 7. Trouble concentrating on things, such as reading the newspaper or watching television: not at all 8. Moving or speaking so slowly that other people could have noticed. Or the opposite - being so fidgety or restless that you have been moving around a lot more than usual: not at all 9. Thoughts that you would be better off or of hurting yourself in some way: not at all Total score: 0 Depression Screening Interpretation: Negative Depression Screening Done: Yes Source: Developed by Drs. Miah Moreno, Katia Smith, Junior Alejo and colleagues, with an educational beth from [employer]. Thrive Questionnaire Date Thrive assessed: 03/19/23 AUDIT C Alcohol Use Questionnaire (AUDIT-C) 3. How often do you have six or more drinks on one occasion?: Never Total Score: 0 JAIRO-7 AMB Questionnaire JAIRO-7 Date JAIRO - 7 assessed: 03/19/23 Source: Developed by Drs. Miah Moreno, Katia Smith, Junior Alejo and colleagues, with an educational beth from [employer]. Physical exam (Primary Care) Vital Signs: Last Vital Signs Pulse 72 12/02/23 08:48 BP 120/60 12/02/23 08:48 Pulse Ox 95 12/02/23 08:48 Oxygen Delivery Method Room Air 12/02/23 08:48 BMI result Body Mass Index 30.1 Tobacco/Smoking Status: Tobacco use Status Tobacco use date assessed 12/02/23 12/02/23 08:56 Patient Tobacco Use Status Never used Tobacco 12/02/23 08:56 e-Cigarette/Vaping Use Never Used 12/02/23 08:56 PHQ-9: PHQ-9 Score PHQ-9: Total score 0 12/02/23 09:08 Depression Screening Interpretation: Negative Thrive Assessment: Date of Thrive Assessment Date Thrive assessed 03/19/23 12/02/23 08:56 Const General: alert; No acute distress Eyes Conjunctivae: conjunctivae normal Resp Auscultation: clear to auscultation bilaterally Cardio Rate: regular rate Rhythm: regular rhythm GI Inspection: Yes normal to inspection Extrem General: Yes normal to inspection and No edema Results AMB Hemoglobin A1c AMB Hemoglobin A1c 8.4 % Last Edit by LONNIE Cortes on 12/02/23 09:00 Immunizations tetanus-diphtheria toxoids-Td 2 Lf unit-2 Lf unit/0.5 mL IM suspension Performing Provider: Barbara Victor MD [facility] Administered by: LONNIE Morejon on 12/02/23 09:28 Dose Route Admin Location Dispensed Lot Number Expiration Date [facility] [employer] 0.5 mL IM Right Deltoid 0.5 mL [id number] 03/22/24 [address]-8 [employer] VIS Given Date VIS Provided VIS Publication Date 12/02/23 Single Vaccine 20 Eligibility Eligibility Date Funding Source Not [facility] Eligible 12/02/23 Private Results Reviewed Results Reviewed: Laboratory Last Values Hgb A1c (Clinic) 8.4 % (4.0-6.0) H 10/22/24 08:47 Coding Level of Care Code Est Pt Level 4 (25421) Complex EM visit Add On G2211 Diagnoses Rupture of right quadriceps tendon, subsequent encounter S76.111D Encounter type: subsequent encounter Stage 3a chronic kidney disease N18.31 Chronic kidney disease stage 3 subtype: stage 3a (GFR 45-59) Postmenopausal bleeding N95.0 History of thyroid cancer Z85.850 Type 2 diabetes mellitus with hyperglycemia, without long-term current use of insulin E11.65 Diabetes mellitus medical terminologist insulin use: without medical terminologist use Obesity (BMI 30-39.9) E66.9 Rheumatoid arthritis involving multiple sites with positive rheumatoid factor M05.79 Rheumatoid arthritis location: multiple sites Rheumatoid factor presence: with rheumatoid factor Hypercholesterolemia E78.00 Essential hypertension I10 Hypertension type: essential hypertension Osteopenia M85.80 Assessment & Plan Assessment & Plan (1) Rupture of right quadriceps tendon: Comment: Right quadriceps repair 07/23/2023 [place] Code(s): S76.111A - Strain of right quadriceps muscle, fascia and tendon, initial encounter Category: Medical Qualifiers: Encounter type: subsequent encounter Qualified Code(s): S76.111D - Strain of right quadriceps muscle, fascia and tendon, subsequent encounter Plan: Patient continues to be followed up by ortho and on physical therapy. (2) CKD (chronic kidney disease) stage 3, GFR 30-59 ml/min: Code(s): N18.30 - Chronic kidney disease, stage 3 unspecified Category: Medical Qualifiers: Chronic kidney disease stage 3 subtype: stage 3a (GFR 45-59) Qualified Code(s): N18.31 - Chronic kidney disease, stage 3a Plan: Keep well hydrated limit NSAIDs (3) Postmenopausal bleeding: Comment: Office EMB Pathology showed complex mucinous lesions could not rule out hyperplasia D&C pathology benign polyp with normal inactive endometrium with no hyperplasia nor malignancy Status post GONSALO BSO May 2023 Code(s): N95.0 - Postmenopausal bleeding Category: Medical Plan: Patient had total abdominal hysterectomy with bilateral salpingo-oophorectomy May 2023 (4) History of thyroid cancer: Comment: Papillary April 2016 Dr. Johny Buckner Right selective neck dissection November 2021 Code(s): Z85.850 - Personal history of malignant neoplasm of thyroid Category: Medical Plan: Continue to be followed up by Endocrinology (5) Type 2 diabetes mellitus with hyperglycemia: Comment: Pt has CKD stage 3, HTN, Hypercalcemia , Shanna and escobar eye Code(s): E11.65 - Type 2 diabetes mellitus with hyperglycemia Category: Medical Qualifiers: Diabetes mellitus medical terminologist insulin use: without care home use Qualified Code(s): E11.65 - Type 2 diabetes mellitus with hyperglycemia Plan: Decrease the amount of carbohydrate intake, pasta, bread, rice and potatoes are all sugar and that is aside from all the sweet stuff, remember that fruits are good but they are Sweet also. Hemoglobin A1c goal of less than 6.5 presently on Jardiance 10 mg once a day glimepiride 2 mg once a day metformin 500 mg twice a day and Januvia 50 mg once a day (6) Obesity (BMI 30-39.9): Code(s): E66.9 - Obesity, unspecified Category: Medical Plan: Diet and exercise (7) Rheumatoid arthritis: Code(s): M06.9 - Rheumatoid arthritis, unspecified Category: Medical Qualifiers: Rheumatoid arthritis location: multiple sites Rheumatoid factor presence: with rheumatoid factor Qualified Code(s): M05.79 - Rheumatoid arthritis with rheumatoid factor of multiple sites without organ or systems involvement Plan: Continue to follow-up with Rheumatology patient on methotrexate, will be seeing Local rheuma (8) Hypercholesterolemia: Code(s): E78.00 - Pure hypercholesterolemia, unspecified Category: Medical Plan: Avoid fried foods, chicken skin, eggs, butter margarine, pastries and meat. Be it pork or beef they have a lot of cholesterol LDL goal of less than 100 and triglyceride of less than 150 (9) Hypertension: Code(s): I10 - Essential (primary) hypertension Category: Medical Qualifiers: Hypertension type: essential hypertension Qualified Code(s): I10 - Essential (primary) hypertension Plan: Continue with blood pressure medication. Decrease salt intake and exercise on lisinopril 10 mg once a day (10) Osteopenia: Comment: February 2019 Code(s): M85.80 - Other specified disorders of bone density and structure, unspecified site Category: Medical Plan: requested for bone density Orders: Orders XR DEXA axial skeleton Today M81.0 - Age-related osteoporosis without current pathological fracture, M85.80 - Other specified disorders of bone density and structure, unspecified site Td State Immunization Today Z23 - Encounter for immunization AMB Hemoglobin A1c Today E11.65 - Type 2 diabetes mellitus with hyperglycemia, N18.31 - Chronic kidney disease, stage 3a Referrals Cologuard Test Z12.11 - Encounter for screening for malignant neoplasm of colon, Z12.12 - Encounter for screening for malignant neoplasm of rectum Medications: New tetanus-diphtheria toxoids-Td 0.5 mL IM ONCE 0.5 mL 0RF Z23 - Encounter for immunization
[2023-12-02 08:48] VITALS: BP 120/60; PULSE 72; O2SAT 95; BMI 30.1
== END 2023-12-02 09:30 | disposition home or self-care (01) ==
PROVIDERS: PCP Internal Medicine; Visit Provider Internal Medicine
DX: I12.9 Hypertensive chronic kidney disease with stage 1 through stage 4 chronic kidney disease, or unspecified chronic kidney disease (principal); E11.65 Type 2 diabetes mellitus with hyperglycemia; N18.31 Chronic kidney disease, stage 3a; M05.79 Rheumatoid arthritis with rheumatoid factor of multiple sites without organ or systems involvement; E66.9 Obesity, unspecified; Z68.30 Body mass index [BMI] 30.0-30.9, adult; S76.111D Strain of right quadriceps muscle, fascia and tendon, subsequent encounter; N95.0 Postmenopausal bleeding; Z85.850 Personal history of malignant neoplasm of thyroid; E78.00 Pure hypercholesterolemia, unspecified; M85.80 Other specified disorders of bone density and structure, unspecified site; Z23 Encounter for immunization

== ENCOUNTER → 2023-12-02 08:44 | Outpatient (BNVA) | payer OTHER, SELFPAY | PROVIDERS: PCP Internal Medicine; Visit Provider Internal Medicine | DX: S76.111D Strain of right quadriceps muscle, fascia and tendon, subsequent encounter (principal); I12.9 Hypertensive chronic kidney disease with stage 1 through stage 4 chronic kidney disease, or unspecified chronic kidney disease; E11.22 Type 2 diabetes mellitus with diabetic chronic kidney disease; N18.31 Chronic kidney disease, stage 3a; E11.65 Type 2 diabetes mellitus with hyperglycemia; Z23 Encounter for immunization; N95.0 Postmenopausal bleeding; E66.9 Obesity, unspecified; Z68.30 Body mass index [BMI] 30.0-30.9, adult; M05.79 Rheumatoid arthritis with rheumatoid factor of multiple sites without organ or systems involvement; E78.00 Pure hypercholesterolemia, unspecified; M85.80 Other specified disorders of bone density and structure, unspecified site; Z85.850 Personal history of malignant neoplasm of thyroid | CPT/HCPCS: 83036; 90471; 90714; 96127 ==

== ENCOUNTER 2023-12-10 13:26 | Outpatient (REF) | payer OTHER, SELFPAY ==
--- NOTE | ~2023-12-10 | US_ITS ---
EXAMINATION: US SOFT TISSUE NECK CLINICAL INFORMATION: History thyroid cancer. COMPARISON: Ultrasound soft tissues neck dated 05/20/2023. TECHNIQUE: Ultrasound of the neck soft tissues is performed with high- frequency lopez-scale imaging and color Doppler. FINDINGS: THYROID BED: Prior thyroidectomy. No residual thyroid tissue demonstrated in the thyroid bed. No cystic or solid nodules demonstrated in the thyroid bed. RIGHT NECK SOFT TISSUES: The largest lymph node is follows: Level 5A: 0.5 x 0.2 x 0.5 cm. Normal deborah architecture. LEFT NECK SOFT TISSUES: Unremarkable. US/US soft tiss head and/or neck IMPRESSION: 1. The thyroid gland is surgically absent. No abnormal mass or fluid collection is seen within the former thyroid bed. 2. A small benign, nonpathologically enlarged lymph node is incidentally seen within right cervical level 5A. No cervical lymphadenopathy is presently demonstrated bilaterally. Electronically signed by: Eliu Cabral MD 12/11/2023 10:41 AM EDT
== END 2023-12-10 13:27 | disposition home or self-care (01) ==
LOC: HO.US 13:26
PROVIDERS: PCP Internal Medicine; Visit Provider Internal Medicine
DX: E03.9 Hypothyroidism, unspecified (principal)
CPT/HCPCS: 76536

== ENCOUNTER 2023-12-12 10:28 | Outpatient (AMB) | payer OTHER, SELFPAY ==
--- NOTE | 2023-12-12 10:32 | HO.NEPHOV_ITS ---
Vital Signs 12/12/23 10:33 Height 5 ft 2.5 in Weight 167 lb BMI 30.1 BP 110/60 Blood Pressure Location Rt brachial Position Sitting Pulse 65 Pulse Source Pulse Oximeter Pulse Oximetry (%) 95 Oxygen Delivery Method Room Air Intake Visit Reasons: CKD/ Conf Safety Engineer Required: No Accompanied by: Self / Same As Patient Allergies ciprofloxacin [Cipro] Allergy (Unknown, Verified 12/12/23 10:34) rash amlodipine Adverse Reaction (Intermediate, Verified 12/12/23 10:34) swelling HPI Comments Details: Joanna was seen in follow up of care of for her CKD. She had seen a shingle packer in [facility] where she follows up with her Field Crop Farm Worker for her Rheumatoid Arthritis. She has long standing history of diabetes mellitus and hypertension with no H/O significant proteinuria in addition to her other medical issues including hypothyroidism (postoperative from thyroid cancer), hypercholesterolemia, osteoarthritis as well as primary hyperparathyroidism status post parathyroidectomy.She has no hypoglycemic episodes.Her serum creatinine had been around 1.4 for some time . She has H/O renal stones. She regularly takes NSAID's for her joint issues while she is on ACEI. She is on MTX as well as Jardiance. She denied any CAD, CVA, VENTURA, PAD or CHF. She denies any hematuria but has H/O renal stones. She tries to keep herself hydrated. She has no nausea, vomiting, diarrhea, SOB, PND, orthopnea , pedal edema or new skin rashes. Her last serum creatinine was 1.4 PFSH Medical History History of radioactive iodine thyroid ablation History of hyperparathyroidism Postoperative hypothyroidism Vitamin D deficiency Thyroid cancer Chronic kidney disease Type 2 diabetes mellitus with hyperglycemia Hypothyroid Obesity (BMI 30-39.9) Parotitis History of thyroid cancer Rheumatoid arthritis Hypercholesterolemia Hypertension Insomnia Surgical History History of hysterectomy History of hysteroscopy History of thyroid surgery History of parathyroid surgery H/O wrist surgery History of tonsillectomy History of section Family History Father CAD (coronary artery disease) Mother Dementia CAD (coronary artery disease) Sister Breast cancer Depression Social History Housing: House Are you a primary manager progressive care to a significant other at home: No Do you presently have visiting nurse or other home services: No Alcohol intake: current Alcohol intake frequency: holidays/special occasions only Patient Tobacco Use Status: Never used Tobacco e-Cigarette/Vaping Use: Never Used Second Hand Smoke Exposure: No service: No Current occupational status: employed Current occupational exposures/hazards: No Cognitive needs: No Hearing needs: No Vision needs: Yes Female Reproductive History Menstrual Age of Menarche: 12 Review of Systems Const All systems reviewed & are unremarkable except as noted in HPI and below Physical Exam Vital Signs: Last Vital Signs Pulse 65 12/12/23 10:33 BP 110/60 12/12/23 10:33 Pulse Ox 95 12/12/23 10:33 Oxygen Delivery Method Room Air 12/12/23 10:33 BMI result Body Mass Index 30.1 Const General: comfortable and no acute distress Orientation/consciousness: patient oriented x3 HEENT Head: Yes normocephalic Mouth: Normal oral and palatal mucosa present Eyes EOM: EOMs intact bilaterally Neck Neck: Yes supple Resp Auscultation: clear to auscultation bilaterally Cardio Jugular venous distension: no JVD Rate: regular rate GI Palpation (GI): Soft to palpation Auscultation: normal bowel sounds General: Yes no CVA tenderness Back/Spine/Pelvis Back: no CVA tenderness Skin General skin exam: no rashes or lesions noted Neuro General: patient oriented x3 and moves all extremities Extrem General: Yes no pedal edema Results Reviewed Nephrology Results: Sodium 141 mmol/L (135-145) 11/26/23 Potassium 4.5 mmol/L (3.3-5.1) 11/26/23 Chloride 113 mmol/L (96-108) H 11/26/23 Carbon Dioxide 20 mmol/L (22-29) L 11/26/23 BUN 27 mg/dL (9-16) H 11/26/23 Creatinine 1.40 mg/dL (0.5-1.4) 11/26/23 Urine Protein Negative mg/dL (Neg-Trace) 12/01/23 Urine Creatinine 120.38 mg/dL 12/01/23 Assessment & Plan Assessment & Plan (1) CKD (chronic kidney disease) stage 3, GFR 30-59 ml/min: Code(s): N18.30 - Chronic kidney disease, stage 3 unspecified Category: Medical Qualifiers: Chronic kidney disease stage 3 subtype: stage 3a (GFR 45-59) Qualified Code(s): N18.31 - Chronic kidney disease, stage 3a (2) Renal calculus, left: Comment: 01/2021 Code(s): N20.0 - Calculus of kidney Category: Medical (3) Hypertension: Code(s): I10 - Essential (primary) hypertension Category: Medical Qualifiers: Hypertension type: essential hypertension Qualified Code(s): I10 - Essential (primary) hypertension Plan Joanna has CKD 3 likely from vascular disease on a backdrop of DM and HTN. She has RA and is on MTX as well as NSAID's. She takes ACEI as well as Jardiance. I increased her Jardiance to 25 mg daily. She has no H/O proteinuria. Her BP has been at goal. She needs to maintain good hydration. Imaging reviewed . She does not need a renal biopsy which I plan to continue to discuss further with her with time. I did not make any other medication changes today. Labs ordered for F/U Orders: Orders Creatinine 6 Months I10 - Essential (primary) hypertension, N18.31 - Chronic kidney disease, stage 3a, N20.0 - Calculus of kidney Blood Urea Nitrogen 6 Months I10 - Essential (primary) hypertension, N18.31 - Chronic kidney disease, stage 3a, N20.0 - Calculus of kidney Electrolytes 6 Months I10 - Essential (primary) hypertension, N18.31 - Chronic kidney disease, stage 3a, N20.0 - Calculus of kidney Medications: Changed From empagliflozin (Jardiance) 10 mg PO DAILY 30 tabs 6RF E11.65 - Type 2 diabetes mellitus with hyperglycemia To empagliflozin 25 mg PO DAILY 90 days 90 tabs 6RF E11.65 - Type 2 diabetes mellitus with hyperglycemia Coding Level of Care Code Est Pt Level 4 (09636) Diagnoses Stage 3a chronic kidney disease N18.31 Chronic kidney disease stage 3 subtype: stage 3a (GFR 45-59) Renal calculus, left N20.0 Essential hypertension I10 Hypertension type: essential hypertension
[2023-12-12 10:33] VITALS: BP 110/60; PULSE 65; O2SAT 95; BMI 30.1
== END 2023-12-12 11:02 | disposition home or self-care (01) ==
LOC: HO.HKA 10:28
PROVIDERS: PCP Internal Medicine; Visit Provider Internal Medicine Nephrology
DX: I12.9 Hypertensive chronic kidney disease with stage 1 through stage 4 chronic kidney disease, or unspecified chronic kidney disease (principal); N18.31 Chronic kidney disease, stage 3a; N20.0 Calculus of kidney
CPT/HCPCS: 99214

== ENCOUNTER → 2023-12-12 10:28 | Outpatient (BNVA) | payer OTHER, SELFPAY | PROVIDERS: PCP Internal Medicine; Visit Provider Internal Medicine Nephrology ==

== ENCOUNTER 2023-12-18 07:23 | Outpatient (AMB) | payer OTHER, SELFPAY ==
--- NOTE | 2023-12-18 07:27 | MHC.OFFVIS ---
Vital Signs 12/18/23 07:34 Height 5 ft 2.5 in Weight 167 lb BMI 30.1 BP 115/62 Blood Pressure Location Lt brachial Position Sitting Pulse 71 Pulse Source Pulse Oximeter Pulse Oximetry (%) 96 Oxygen Delivery Method Room Air Intake Visit Reasons: RA Intake Note: Patient presents for RA. Allergies ciprofloxacin [Cipro] Allergy (Unknown, Verified 12/18/23 07:30) rash amlodipine Adverse Reaction (Intermediate, Verified 12/18/23 07:30) swelling Medication List - Last Reconciled 12/18/23 by Cecile Guzmán MD blood sugar diagnostic ([email or web address] Ver[employer] test strips) test once daily cholecalciferol (vitamin D3) 125 mcg PO .2x /week diclofenac sodium 37.5 mg (1/2 x 75 mg) PO BID empagliflozin 25 mg PO DAILY 90 days empagliflozin (Jardiance) 25 mg PO DAILY folic acid 1 mg PO DAILY glimepiride 2 mg PO DAILY 90 days levothyroxine 112 mcg PO DAILY 90 days lisinopril 10 mg PO DAILY metformin 500 mg PO BID methotrexate sodium 10 mg PO QWEEK misoprostol 200 mcg PO BID norethindrone acetate 5 mg PO DAILY simvastatin 10 mg PO BEDTIME sitagliptin phosphate (Januvia) 50 mg PO DAILY 90 days triamcinolone acetonide (Nasacort Allergy) 2 sprays intranasal DAILY zolpidem (Ambien) 10 mg PO BEDTIME PRN 90 days HPI Comments Details: Patient is a 63-year-old female with diabetes complicated by CKD stage 3B - 4, hypertension, hypothyroidism and hyperlipidemia presents to establish care for the management of seropositive erosive rheumatoid arthritis. Patient diagnosed with rheumatoid arthritis in her 20s and has been on: Methotrexate: currently maintained onn 4-5 pills per week due to LFTs derangements Infliximab: Stopped due to change in Physician Humira: Self discontinued due to burning at injection site Xeljanz: Discontined due to recurrent papillary thyroid cancer Plaquenil: Did not tolerate She is currently maintained on methotrexate 4-5 pills per week and takes diclofenac for breakthrough joint pain. She also has a secondary osteoarthritis on top of her rheumatoid arthritis. Currently she states that she is doing overall well does not have any prolonged morning stiffness but has frequent flares of her disease requiring her to take diclofenac. 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 History of radioactive iodine thyroid ablation History of hyperparathyroidism Postoperative hypothyroidism Vitamin D deficiency Thyroid cancer Chronic kidney disease Type 2 diabetes mellitus with hyperglycemia Hypothyroid Obesity (BMI 30-39.9) Parotitis History of thyroid cancer Rheumatoid arthritis Hypercholesterolemia Hypertension Insomnia Surgical History History of hysterectomy History of hysteroscopy History of thyroid surgery History of parathyroid surgery H/O wrist surgery History of tonsillectomy History of section Family History Father CAD (coronary artery disease) Mother Dementia CAD (coronary artery disease) Sister Breast cancer Depression Social History Housing: House Are you a primary care advocate to a significant other at home: No Do you presently have visiting nurse or other home services: No Alcohol intake: current Alcohol intake frequency: holidays/special occasions only Patient Tobacco Use Status: Never used Tobacco e-Cigarette/Vaping Use: Never Used Second Hand Smoke Exposure: No service: No Current occupational status: employed Current occupational exposures/hazards: No Cognitive needs: No Hearing needs: No Vision needs: Yes Female Reproductive History Menstrual Age of Menarche: 12 Review of Systems Const Details: Review of Systems Constitutional: Denies fever, chills, weight loss ENT: Denies vision changes, eye pain or eye redness, dental caries, dry mouth GI: Denies nausea, vomiting, diarrhea, abdominal pain, change in BM Pulm: Denies SOB, WU, hemoptysis, wheezing Cards: Denies chest pain, palpitations Skin: Denies Raynaud's, rash, nail changes, photosensitivity, CLINICAL RADIOLOGIST: Denies headaches, weakness, paresthesias, recurrent falls MSK: as per HPI All other systems reviewed and are unremarkable except noted above Physical Exam Vital Signs: Last Vital Signs Pulse 71 12/18/23 07:34 BP 115/62 12/18/23 07:34 Pulse Ox 96 12/18/23 07:34 Oxygen Delivery Method Room Air 12/18/23 07:34 BMI result Body Mass Index 30.1 Physical Examination CONSTITUITIONAL Patient alert and cooperative. Well appearing and in no apparent painful distress HEENT Conjunctiva and sclera clear. ?Pupils equal round and reactive to light. ?No lymphadenopathy. ?Normal dentition. No oral or nasal ulcers noted. No evidence of discoid rash to the marianela of ears CHEST/RESPIRATORY SYSTEM Normal respiratory effort and able to speak in complete sentences. ?Clear to auscultation bilaterally. ?No crackles, rales, rhonchi, wheezes heard. CARDIAC SYSTEM Regular rate and rhythm. ?S1 and S2 heard no murmurs. 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 [place]-neck deformity noted to the left 5th digit but this was reducible. Ulnar deviation noted to bilateral hands at the MCP joints for this was also reducible. Synovitis with swelling and tenderness to palpation of the left 2nd and 3rd MCP as well as the right 2nd MCP. Wrists: ?Full range of motion at the wrists without pain. ?No tenderness to palpation or synovitis noted to the wrists. Elbows: Full range of motion without pain. No tenderness, weakness, swelling, increased warmth or erythema. Shoulders: Full range of motion without pain. No tenderness, weakness, swelling, increased warmth or erythema. Hips: Full range of motion without pain. Hip bursa: No tenderness to palpation Knees: ?Full range of motion. ?No tenderness, swelling, increased warmth or erythema.?No effusion or crepitations Ankles: Full range of motion. ?No tenderness, swelling, increased warmth or erythema.? Feet: ?Negative squeeze test. ?No tenderness to palpation or swelling of the MTPs. SKIN Skin intact without rashes. Results Reviewed Results Reviewed: Laboratory Tests 05/14/23 06/05/23 11/26/23 07:45 14:06 07:46 WBC 4.8 3.7 L RBC 4.90 5.15 Hgb 15.5 16.3 H Hct 45.7 47.6 H Plt Count 244 201 ESR 4 Sodium 141 Potassium 4.5 Chloride 113 H Carbon Dioxide 20 L BUN 27 H Creatinine 1.40 Estimated GFR 38 Assessment & Plan Assessment & Plan (1) Rheumatoid arthritis: Comment: Diagnosed in her 20s Methotrexate: currently maintained onn 4-5 pills per week due to LFTs derangements Infliximab: Stopped due to change in Physician Humira: Self discontinued due to burning at injection site Xeljanz: Discontinued due to recurrent papillary thyroid cancer Plaquenil: Did not tolerate Code(s): M06.9 - Rheumatoid arthritis, unspecified Category: Medical Qualifiers: Rheumatoid arthritis location: multiple sites Rheumatoid factor presence: with rheumatoid factor Qualified Code(s): M05.79 - Rheumatoid arthritis with rheumatoid factor of multiple sites without organ or systems involvement Plan: #RA Patient with a longstanding history of rheumatoid arthritis. Currently only maintained on methotrexate 4-5 pills per week due to LFT abnormalities on higher doses. The concern for her is that her GFR has been ranging between 28 and 35 which is a contraindication for methotrexate. I discussed this with the patient and she is concerned about stopping methotrexate especially in anticipation of a family trip in a month. Shared decision making we will start leflunomide 10 mg daily along with methotrexate 4 pills weekly with the plan to stop methotrexate after the treatment increase leflunomide to 20 mg daily. All questions answered (2) Methotrexate, nursing home, current use: Code(s): Z79.631 - shelter (current) use of antimetabolite agent Category: Medical Plan: #Long-term Current Use of Methotrexate Discussed with patient the benefits and risks of methotrexate for managing their rheumatic condition Benefits include reduced pain, reduced mortality, maintenance of remission and reduction of flares Risks include oral ulcers, photosensitivity, hepatotoxicity, hematologic toxicity, pneumonitis, flu-like symptoms (especially day after administration), nodulosis, lymphomas ? Limit alcohol and avoid Bactrim ? Monitoring: ?CBC, BMP, LFTs every 3-4 months and hepatitis serologies as needed (3) Long-term use of leflunomide therapy: Code(s): Z79.899 - Other nursing home (current) drug therapy Category: Medical Plan: #Long-term leflunomide Discussed with patient the benefits and risks of leflunomide for managing the rheumatic condition Benefits include: - Reduced pain, maintenance of remission and reduction of flares Risks include: - GI upset especially diarrhea, skin rash, cytopenias, hepatotoxicity, weight loss, neuropathy Leflunomide is highly teratogenic. ?Has a very long half-life. ?Needs cholestyramine washout if there is desire for Initiation: ?CBC, BMP, LFTs, hepatitis-B and C serologies every 2-4 weeks for 3 months Monitoring: ?CBC, BMP, LFTs, hepatitis B and C serologies Plan I spent 60 minutes reviewing the record and labs, seeing the patient, discussing the treatment plan and documenting in the medical record Orders: Orders Comprehensive Met. Panel Today M05.79 - Rheumatoid arthritis with rheumatoid factor of multiple sites without organ or systems involvement Rheumatoid Factor Today M05.79 - Rheumatoid arthritis with rheumatoid factor of multiple sites without organ or systems involvement Cyclic Citrullinated Peptide Today M05.79 - Rheumatoid arthritis with rheumatoid factor of multiple sites without organ or systems involvement Hepatitis A,B,C Profile Today M05.79 - Rheumatoid arthritis with rheumatoid factor of multiple sites without organ or systems involvement XR hand wrist RT Today M05.79 - Rheumatoid arthritis with rheumatoid factor of multiple sites without organ or systems involvement XR foot RT min 3V Today M05.79 - Rheumatoid arthritis with rheumatoid factor of multiple sites without organ or systems involvement XR cervical spine w flex/ext Today M05.79 - Rheumatoid arthritis with rheumatoid factor of multiple sites without organ or systems involvement Complete Blood Count Auto Diff Today M05.79 - Rheumatoid arthritis with rheumatoid factor of multiple sites without organ or systems involvement C Reactive Protein Today M05.79 - Rheumatoid arthritis with rheumatoid factor of multiple sites without organ or systems involvement Erythrocyte Sedimentation Rate Today M05.79 - Rheumatoid arthritis with rheumatoid factor of multiple sites without organ or systems involvement XR hand wrist LT Today M05.79 - Rheumatoid arthritis with rheumatoid factor of multiple sites without organ or systems involvement XR foot LT min 3V Today M05.79 - Rheumatoid arthritis with rheumatoid factor of multiple sites without organ or systems involvement Medications: New leflunomide 20 mg (2 x 10 mg) PO DAILY 180 tabs 1RF 90 days M05.79 - Rheumatoid arthritis with rheumatoid factor of multiple sites without organ or systems involvement Coding Level of Care Code Est Pt Level 5 (85494) Complex EM visit Add On G2211 Diagnoses Rheumatoid arthritis involving multiple sites with positive rheumatoid factor M05.79 Rheumatoid arthritis location: multiple sites Rheumatoid factor presence: with rheumatoid factor Methotrexate, nursing home, 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 Long-term use of leflunomide therapy Z79.899
[2023-12-18 07:34] VITALS: BP 115/62; PULSE 71; O2SAT 96; BMI 30.1
== END 2023-12-18 08:19 | disposition home or self-care (01) ==
LOC: HO.RHE 07:23
PROVIDERS: PCP Internal Medicine; Visit Provider Student in an Organized Health Care Education/Training Program
DX: M05.79 Rheumatoid arthritis with rheumatoid factor of multiple sites without organ or systems involvement (principal); Z79.631 Long term (current) use of antimetabolite agent; Z79.899 Other long term (current) drug therapy
CPT/HCPCS: 99215; 99417

== ENCOUNTER 2023-12-19 08:23 | Outpatient (REF) | payer OTHER, SELFPAY ==
--- NOTE | ~2023-12-19 | XR_ITS ---
EXAMINATION: XR HAND/WRIST, RIGHT CLINICAL INFORMATION: Rheumatoid arthritis, polyarthropathy. COMPARISON: 06/27/2015. TECHNIQUE: PA, lateral, oblique, and scaphoid views of the right hand and wrist. FINDINGS: There is osteopenia. There is no acute fracture or dislocation. No focal bony abnormalities. Fixated distal radial fracture with plate and screws, without complication evident. Nonunion of old healed navicular fracture. Stable and unchanged moderate to severe narrowing of the radiocarpal joint, with subtle erosions in the proximal scaphoid and navicular bones. There is volar tilt of the lunate suggesting VISI. Mild to moderate joint space loss with periarticular erosions in the predominantly second and third MTP joints. Interphalangeal joints appear relatively spared. Overall appearance is unchanged. There is no discrete soft tissue abnormality. XR/XR hand wrist RT IMPRESSION: Findings of both old trauma and rheumatoid arthritis, unchanged from the prior examination without progression of disease. Electronically signed by: Sinan Pride MD 12/26/2023 09:24 AM [facility]
--- NOTE | ~2023-12-19 | XR_ITS ---
EXAMINATION: XR CERVICAL SPINE CLINICAL INFORMATION: Polyarthritis, rheumatoid arthritis. COMPARISON: No prior available. TECHNIQUE: 6 views of the cervical spine, inclusive of flexion and extension views, were obtained. FINDINGS: There is a mild dextroconvex scoliosis, apex at C4. There is straightening of the normal lordosis. Diffuse osteopenia. There is no acute fracture or suspicious focal bone lesion. There is a 3 mm degenerative anterolisthesis of C3 on C4, and minimal 2 mm anterolisthesis of C4 on C5. Severe disc degeneration present C5-6 and C6-7, with endplate sclerosis, severe disc space loss, and marginal osteophytes. Milder disc degenerative changes at the other levels. Facet degeneration and hypertrophy present at multiple levels, most significant on the left at C2-3, C3-4, and C4-5. Atlantoaxial joint is intact with mild to moderate arthritic change. No basilar invagination. Craniocervical junction is intact. Flexion and extension views demonstrate mild increase in the anterolisthesis at C3-4 to 4 mm (from 3 mm). No change in the anterolisthesis C4 on C5. No additional worsening or developing subluxation. There is no prevertebral soft tissue abnormality. Right left carotid bulb calcification. Imaged lung apices are mildly hyperlucent but clear. XR/XR cervical spine w flex/ext IMPRESSION: 1. Advanced spondylosis as described above. No acute findings of the cervical spine. 2. Possible mild instability at C3-4. (1 mm of worsening of anterolisthesis on flexion and extension views at this level.) 3. Findings suggesting COPD of the lung apices although this is possibly a technical finding. Electronically signed by: Sinan Pride MD 12/26/2023 09:39 AM [facility]
--- NOTE | ~2023-12-19 | XR_ITS ---
EXAMINATION: XR HAND/WRIST, LEFT CLINICAL INFORMATION: Rheumatoid arthritis, polyarthropathy. COMPARISON: 06/27/2015. TECHNIQUE: PA, lateral, oblique, and scaphoid views of the left hand and wrist. FINDINGS: There is osteopenia. There is no acute fracture or dislocation. No focal bony abnormalities. Old healed distal radial fracture, without complication evident. Nonunion of old healed navicular fracture. Stable and unchanged severe narrowing of the radiocarpal joint, with subtle erosions in the proximal scaphoid and navicular bones. Increased scapholunate interval consistent with early changes of SLAC wrist. There is volar tilt of the lunate suggesting VISI. Mild to moderate joint space loss with periarticular erosions in the predominantly first and second MTP joints. Interphalangeal joints appear relatively spared. Overall appearance is unchanged. There is no discrete soft tissue abnormality. XR/XR hand wrist LT IMPRESSION: 1. Findings of both old trauma and rheumatoid arthritis, unchanged from the prior examination without progression of disease. 2. Early SLAC changes of the left wrist. Electronically signed by: Sinan Pride MD 12/26/2023 09:29 AM [facility]
--- NOTE | ~2023-12-19 | XR_ITS ---
EXAMINATION: XR FOOT, LEFT CLINICAL INFORMATION: Rheumatoid arthritis, polyarthritis. COMPARISON: 06/27/2015. TECHNIQUE: AP, lateral, and oblique views of the left foot. FINDINGS: Examination appears stable from previous. No fracture, no focal bony lesions. There is osteopenia. Inflammatory appearing joint disease with periarticular erosions, moderate to severe in appearance, involving the MTP joints predominantly with periarticular erosions, joint space loss, and remodeling of the predominantly second, third, and fifth MTP joints. There is lateral angulation of the proximal phalanges in relation to the metatarsals. Moderate to severe hallux valgus with evidence of prior osteotomy and 2 screws within the distal first metatarsal. Stable appearance. The midfoot and hindfoot demonstrate a smallb-sized plantar calcaneal spur. They are otherwise normal in appearance without significant arthropathy. Overall the appearance of the foot appears stable without definite progression of disease. No soft tissue abnormalities. XR/XR foot LT min 3V IMPRESSION: Findings of rheumatoid arthritis, unchanged from the prior examination without progression of disease. Electronically signed by: Sinan Pride MD 12/26/2023 09:14 AM [facility]
--- NOTE | ~2023-12-19 | XR_ITS ---
EXAMINATION: XR FOOT, RIGHT CLINICAL INFORMATION: Rheumatoid arthritis, polyarthritis. COMPARISON: 06/27/2015 TECHNIQUE: AP, lateral, and oblique views of the right foot. FINDINGS: Examination appears stable from previous. No fracture, no focal bony lesions. There is osteopenia. Inflammatory appearing joint disease with periarticular erosions, moderate to severe in appearance, involving the MTP joints predominantly with periarticular erosions, joint space loss, and remodeling of the predominantly second and fifth MTP joints. There is lateral deviation of the proximal phalanges in relation to the metatarsals. Moderate to severe hallux valgus with evidence of prior osteotomy and 2 screws within the distal first metatarsal. The midfoot and hindfoot demonstrate a moderate-sized plantar calcaneal spur. They are otherwise normal in appearance without significant arthropathy. Overall the appearance of the foot appears stable without definite progression of disease. No soft tissue abnormalities. XR/XR foot RT min 3V IMPRESSION: Findings of rheumatoid arthritis, unchanged from the prior examination without progression of disease. Electronically signed by: Sinan Pride MD 12/26/2023 09:04 AM [facility]
[2023-12-19 08:51] LABS: Basophils Percent Auto 0.6 % (0-2); Eosinophils Absolute Auto 0.2 X10*3/uL (0.0-0.4); Hematocrit 43.4 % (37.0-47.0); Hemoglobin 14.7 g/dl (12.0-16.0); Imm Gran Abs Auto 0.02 X10*3/uL (0.00-0.03); Imm Gran Pct Auto 0.4 % (0.0-0.4); Lymphocytes Absolute Auto 0.9 X10*3/uL (1.2-4.9); Lymphocytes Percent Auto 18.1 % (20-40); MANUAL DIFF FLAG NO; Mean Corpuscular HGB Conc 33.9 g/dl (31.0-35.0); Mean Corpuscular Hemoglobin 31.4 pg (27.0-33.0); Mean Corpuscular Volume 92.7 fL (80.0-98.0); Mean Platelet Volume 9.2 fL (9.4-12.3); Monocytes Absolute Auto 0.4 X10*3/uL (0.1-1.2); Monocytes Percent Auto 8.2 % (2-11); Neutrophils Absolute Auto 3.4 x10*3/uL (2.0-8.3); Neutrophils Percent Auto 68.7 % (45-73); Platelet Count 215 X10*3/uL (160-400); Red Blood Count 4.68 X10*6/uL (4.20-5.50); Red Cell Distribution Width 12.8 % (11.0-16.0)
[2023-12-19 09:16] LABS: Rheumatoid Factor 26.8 IU/mL (<15.0)
[2023-12-19 09:23] LABS: Alanine Aminotransferase 26 U/L (0-31); Alkaline Phosphatase 81 U/L (39-117); Anion Gap 14 (12-20); Aspartate Amino Transferase 21 U/L (5-31); Bilirubin Total 0.3 mg/dL (0.0-1.0); Blood Urea Nitrogen 27 mg/dL (9-16); C Reactive Protein 0.39 mg/dL (< or = 0.50); Calcium 9.9 mg/dL (8.4-10.2); Carbon Dioxide 22 mmol/L (22-29); Chloride 110 mmol/L (96-108); Estimated Glomerular Filt Rate 33; Glucose Random 224 mg/dL (60-115); Potassium 4.7 mmol/L (3.3-5.1); Sodium 141 mmol/L (135-145); Total Protein 6.7 g/dL (6.5-8.0)
[2023-12-19 09:33] LABS: Erythrocyte Sedimentation Rate 7 MM/HR (0-20)
[2023-12-20 03:50] LABS: HBS Num1 1.24 mIU/mL (0-7.99); HBc Num1 0.14 S/CO (0.00-0.79); Hepatitis A Antibody IgM 0.66 Index (0-0.79); Hepatitis B Core Antibody Nonreactive (Nonreactive); Hepatitis B Surface Antigen Negative (Negative); ~HepC Num1 0.09 S/CO (0.00-0.79); ~Hepatitis A Antibody IgM Nonreactive (Nonreactive); ~Hepatitis B Surface Antibody NONREACTIVE (Nonreactive); ~Hepatitis C Antibody Nonreactive (Nonreactive)
[2023-12-23 19:53] LABS: Cyclic Citrullinated Peptide 196 UNITS
== END 2023-12-19 08:24 | disposition home or self-care (01) ==
LOC: HO.XRAY 08:23
PROVIDERS: PCP Internal Medicine; Visit Provider Student in an Organized Health Care Education/Training Program
DX: M05.79 Rheumatoid arthritis with rheumatoid factor of multiple sites without organ or systems involvement (principal)
CPT/HCPCS: 36415; 72052; 73110; 73130; 73630; 80053; 85025; 85652; 86140; 86200; 86431; 86704; 86706; 86709; 86803; 87340

== ENCOUNTER → 2023-12-19 08:43 | Outpatient (BNV) | payer OTHER, SELFPAY | PROVIDERS: PCP Internal Medicine; Visit Provider Radiology Diagnostic Radiology | DX: M06.89 Other specified rheumatoid arthritis, multiple sites (principal) | CPT/HCPCS: 72052; 73630 ==

== ENCOUNTER 2023-12-25 08:05 | Outpatient (REF) | payer OTHER, SELFPAY ==
--- NOTE | ~2023-12-25 | MM_ITS ---
EXAMINATION: BONE DENSITOMETRY CLINICAL INDICATION: Age-related osteoporosis without current pathological fracture. COMPARISON: Previous BD dated 05/04/2021 and baseline BD dated 02/11/2019. TECHNIQUE: Using a [employer] DXA System (software version: 13.1) manufactured by [employer], dual-energy x-ray absorptiometry was performed of the lumbar spine and left hip. The images are of good technical quality. Summary results are attached. FINDINGS: LEFT FEMUR, NECK: Current: BMD 0.862 g/cm2, Z-score -0.1, T-score -1.3, osteopenia. Prior: BMD 0.857 g/cm2. Baseline: BMD 0.865 g/cm2. LEFT FEMUR, TOTAL: Current: BMD 0.897 g/cm2, Z-score 0.0, T-score -0.9, normal, 3.3% decrease from previous, 3.0% decrease from baseline (<5% change is not significant). Prior: BMD 0.928 g/cm2. Baseline: BMD 0.925 g/cm2. AP SPINE L1-L3 (excluding L4): The data of L1-L4 has been changed to exclude the L4 vertebral body, because at this level may cause overestimation of lumbar spine density. Current: BMD 1.200 g/cm2, Z-score 1.4, T-score 0.3, normal, 2.6% decrease from previous, 0.3% decrease from baseline (<5% change is not significant). Prior: BMD 1.232 g/cm2. Baseline: BMD 1.204 g/cm2. IDENTIFIED RISK FACTORS: Menopause, hysterectomy, renal, rheumatoid arthritis, height loss, family history (parent hip fracture). HISTORY OF FRACTURE: Wrist. MEDICATIONS: Vitamin D. MM/XR DEXA axial skeleton IMPRESSION: 1. DIAGNOSIS: Osteopenia based on the lowest T-score value of -1.3 in the femoral neck applying World Health Organization criteria. 2. 10-YEAR FRACTURE RISK PREDICTION, FRAX: Major osteoporotic fracture (clinical spine, forearm, hip or shoulder) 31.7%. Hip fracture 1.7%. 3. Treatment Recommendations: NOF guidelines recommend consideration for treatment in postmenopausal women and men age 50 and older presenting with the following: -A hip or vertebral (clinical or morphometric) fracture. -T-score less than or equal to -2.5 at the femoral neck or spine after appropriate evaluation to exclude secondary causes. -Low bone mass at the hip or spine and a 10-year fracture probability by FRAX of greater than or equal to 3% for hip fracture or greater than or equal to 20% for major osteoporotic fracture based on the [place] adapted WHO algorithm. 4. Other Recommendations: All treatment decisions require clinical judgment and consideration of individual patient factors, including patient preferences, comorbidities, previous drug use, risk factors not captured in the FRAX model (e.g. frailty, falls, vitamin D deficiency, increased bone turnover, interval significant decline in bone density) and possible under or overestimation of fracture risk by FRAX. Additional medical evaluation for secondary cause of low bone mineral density may be appropriate. FUTURE SCAN RECOMMENDATION: People with diagnosed cases of osteoporosis or at high risk for fracture should have regular bone mineral density tests. For patients eligible for Medicare, routine testing is allowed once every 2 years. The testing frequency can be increased to one year for patients who have rapidly progressing disease, those who are receiving or discontinuing medical therapy to restore bone mass, or have additional risk factors. Electronically signed by: Bakari Yu MD 12/25/2023 09:23 AM [facility]
== END 2023-12-25 08:06 | disposition home or self-care (01) ==
LOC: HO.MAMMO 08:05
PROVIDERS: PCP Internal Medicine; Visit Provider Internal Medicine
DX: M81.0 Age-related osteoporosis without current pathological fracture (principal); M85.80 Other specified disorders of bone density and structure, unspecified site
CPT/HCPCS: 77080

== ENCOUNTER 2024-01-01 16:00 | Outpatient (REF) | payer OTHER, SELFPAY | END 2024-01-01 16:01 | disposition home or self-care (01) | LOC: HO.MRI 16:00 | PROVIDERS: PCP Internal Medicine; Visit Provider Student in an Organized Health Care Education/Training Program | DX: M05.79 Rheumatoid arthritis with rheumatoid factor of multiple sites without organ or systems involvement (principal); M43.12 Spondylolisthesis, cervical region | CPT/HCPCS: 72141 ==

== ENCOUNTER 2024-01-07 07:00 | Outpatient (RCR) | payer OTHER, SELFPAY ==
--- NOTE | 2023-08-05 08:18 | MHC.PT.EP ---
[facility] [place] [facility] [place] [facility] [place] [facility] [address] Dipesh Doherty [address] [phone] F: [phone] F: [phone] F: [phone] F: [phone] Physical Therapy Plan of Care Date of Evaluation: 08/05/23 Date of Surgery: 07/22/23 Diagnosis: s/p R quad tear/repair. Assessment: Patient is a 62 year old R handed female who presents with s/s consistent with s/p quad tendon repair on 07/22/23. 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 Patient past medical history includes DM, hysterectomy in May, thyroid cancer x2, and RA. Current impairments include pain, posture, flexibility, balance, ROM, strength, activity tolerance and functional mobility. Functional limitations include decreased ability to stand, walk, negotiate stairs, transfer, drive, and perform all weight bearing activities. Patient is motivated with good rehab potential. Skilled PT will address impairments and functional limitations in order to achieve goals. Frequency and Duration: The patient will be seen 2x/week for 8 weeks Short Term Goals: no s/s of infection - well managed surgical site - 3 weeks I with HEP - 2 weeks min swelling, well tolerated 10 degree gait patterns - 4 weeks Jail Goals: Normal gait mechanics, no AD - 8 weeks Full AROM pain free - 8 weeks Max pain 2/10 with ADLs - 8 weeks Strength 4/5 grossly in R LE - 8 weeks Treatment Plan: Modalities to reduce pain, spasms and effusion. Manual therapy to restore motion and function. Therapeutic exercise to improve strength and flexibility. Neuromuscular re-education for posture and balance. Therapeutic activities to return to functional activities of daily living. Electronically signed by: Tavo Kc, PT Please sign and return to therapist. Thank you for your referral.
--- NOTE | 2024-03-24 13:35 | MHC.PT.DC ---
[facility] [place] [facility] [place] [facility] [place] [facility] [address] Dipesh Doherty [address] [phone] F: [phone] F: [phone] F: [phone] F: [phone] Physical Therapy Discharge Report Diagnosis: s/p R quad tear/repair. Date of Surgery: 07/22/23 Date of Evaluation: 08/05/23 Date of Discharge: 01/24/24 Treatments to Date: Cancellations to Date: No Shows to Date: Discharge Status: Achieved Goals Improved Function Independent with HEP Discharge Summary: 01/07/24: pt ROM to 138. Strength and balance improvements are appreciable as well. Max pain in knee is 2/10 daily. Normal gait mechanics. She has an LEFS of 61/80. She has progressed very well over the course of skilled PT. She will attempt HEP exclusively and has a [place] trip coming up and she is in agreement to call back should she feel it necessary after the trip. Otherwise, we will d/c to HEP. 12/31/23: progressed walking program. improved descent control with 8 stairs. AAROM flexion to 136. continue to progress as tolerated. 12/24/23: initiated TM walking program. no adverse reactions. continuing to progress as tolerated. 12/17/23: ROM maintainted. continuing to progress strength and balance without adverse reactions. 12/11/23: progressing strength and pt is improving. however, she does need improvement in her ability to control eccentric phase with stair descent. 12/09/23: pt progressing well still. AAROM flexion to 134. Ext full. progressing strength. continue to progress as tolerated. 12/02/23: pt progressing well with skilled PT. no adverse reactions. AAROM flexion to 132. Ext full. 11/27/23: pt with no new s/s. ROM to 131. continues to be compliant with HEP and improve ROM. 11/25/23: ROM flexion 129.5 today. progressing well with skilled PT. no adverse reactions. increased single leg shuttle resistance. we will start walking progression in upcoming visits. 11/18/23: pt ROM to 128 AAROM. she continues to build strength and improve squatting mechanics. stairs mechanics improving as well. 11/14/23: pt progressing well. ROM continues progress. stair mechanics improved wiht 1-2 HH assist. 11/10/23: pt progressing well with skilled PT. AAROM same as last visit. progressing with stair mechanics. still needs to improve with eccentric control of step down on 6 . requires 2 HH assist. 11/06/23: pt with good response to stair progression. ROM continues progress. we will continue to progress as tolerated. 11/04/23: pt continues ROM progress. improving stair mechanics. not wearing brace at all. improved confidence and strength. 05/15 flex and ext of R knee. 10/30/23: pt progressing. ROM to 117 today. added step ant and lat. no adverse reactions. min swelling and discomfort. progress as tolerated. 10/28/23: AAROM flexion to 114. progressed shuttle and squats, balance. to add stairs NV. 10/24/23: AAROM flexion to 111. continuing to progress. wobble board used for squat feedback. no new s/s. 10/21/23: continuing to progress as tolerate single leg stance well. continue to progress as tolerated. 10/16/23: we continue to emphasize gait, flexion, and strength pain free. we will continue to progress as tolerated. ROM continues to progress. 10/14/23: pt has been continuing to progress with ROM, strength, quality of quad set, gait mechanics. Continue to progress and taper out of brace with amb. 10/09/23: pt progressing well. updated HeP. no adverse reactions. 10/07/23: pt progressing well with skilled PT. AAROM flexion to 96 today. encouraged her to continue to spend time daily here. increased time without brace in clinic for ex and gait . 10/02/23: pt progressing well with weight bearing and ROM. flexion 92 today. educated in pursuit of 1 degree per day. amb without crutch with good response. 09/25/23: pt instructed on heel strike, toe off with gait with good compliance. She is progressing with ROM - 90 AAROM flexion today. some infrapatellar pain today in area of hoffa's fat pad. we did discuss this a bit. started stepper, no adverse reactions. continue to progress as tolerated. pt continued w/ mat level and standing ther ex. She had increased stiffness today which she mentioned is most likely d/t not being compliant w/ HEP over the past two days. She was able to achieve 75* of flexion today. I did reiterate the importance of stretching throughout the day to avoid excessive stiffness. She got clearance from the ortho PA for swimming so she was instructed in safe pool stair navigation and ex's appropriate for pool. She may be appropriate for some half revolutions on a recumbent bike no resistance and some MHP to thigh prior to heel slides for improved ROM and tolerance. Electronically signed by: Tavo Kc PT Please sign and return to therapist. Thank you for your referral.
== END 2024-03-24 13:36 | disposition home or self-care (01) ==
LOC: HO.PTCHIC 07:00
PROVIDERS: PCP Internal Medicine; Visit Provider Physician Assistant
DX: S76.111D Strain of right quadriceps muscle, fascia and tendon, subsequent encounter (principal)
CPT/HCPCS: 97110; 97112; 97116; 97162; 97530

== ENCOUNTER 2024-03-08 12:45 | Outpatient (AMB) | payer OTHER, SELFPAY ==
--- NOTE | 2024-03-08 12:54 | A.SPINEOV_ITS ---
Vital Signs 03/08/24 12:56 Height 5 ft 2.5 in Weight 165 lb BMI 29.7 Intake Visit Reasons: spondylolisthesis, cervical region Intake Note: Ms. Tse is here today c/o neck pain. Tool Room Attendant Required: No Allergies ciprofloxacin [Cipro] Allergy (Unknown, Verified 03/08/24 12:57) rash amlodipine Adverse Reaction (Intermediate, Verified 12/18/23 07:30) swelling Physical Exam Vital Signs: BMI result Body Mass Index 29.7 Assessment & Plan Assessment & Plan (1) Anterolisthesis of cervical spine: Code(s): M43.12 - Spondylolisthesis, cervical region Category: Medical Plan Dear Dr. Guzmán Thank you for referring Mrs Tse to our office today. She is a very nice 63-year-old female with a history of rheumatoid arthritis, who was undergoing surveillance studies of her cervical spine because of some complaints of neck pain and was found to have spondylolisthesis at C3-4 with some evidence of movement with flexion and extension. She was sent today after an follow up MRI showed degenerative changes and some cervical stenosis. Currently the patient does not report any specific pain in her neck. She gets little aches occasionally but nothing that keeps her from doing anything that is meaningful to her. She does not report any shooting pains down the arm, numbness, Lhermitte's phenomenon, gait instability, loss of fine motor movements or other myelopathic complaints. She is here to follow up on the MRI results. PMH: Rheumatoid arthritis since 1980, she up until recently had been on metho trexate but because of kidney disease had to be switched to leflunomide. History of diabetes, recent A1c was in the 8 range, hypertension which is well controlled, history of thyroid cancer 2 times, was treated with follow-up radioactive iodine treatments. History of stage 3 kidney disease, osteopenia, , hysterectomy, repair of a torn quadriceps tendon, broken arm ORIF 2014. Social hx: She has not smoke, drink use any recreational drugs Medications: Vitamin D3, diclofenac, Januvia, Jardiance, metformin, leflunomide, levothyroxine, lisinopril, misoprostol, simvastatin, Nasacort, Ambien, norethindrone Allergies: Cipro and amlodipine Physical exam: Patient is awake alert oriented no acute distress, she is able stand up out of a chair without difficulty, ambulate down the hallway 20 ft turn around with no instability, tandem gait walking was normal, Romberg negative, strength and reflexes normal in the upper extremities, no Major's, no clonus Imaging review: There is cervical MRI done here [facility] showing spondylolisthesis at C3-4 with moderate central canal stenosis, severe degenerative disc disease at C5-6 and C6-7 with disc collapse and moderate stenosis at C5-6. There is no cord signal change seen. There is some low-grade degenerative disc disease in the upper thoracic spine. Cervical x-rays done at [facility] show some slight anterior translation of C3 on C4 with flexion and extension. Impression: 63-year-old female history rheumatoid arthritis, who was sent for surveillance x-rays of her neck after complaining of some subtle neck pain and this showed signs of some movement of the C3 on C4 with flexion and extension. Her MRI shows that she has no evidence of spinal cord compression although there is moderate stenosis at a few levels with degenerative disc disease. No cord signal change. She is for the most part asymptomatic from all these findings and there is no report of myelopathy on her exam her history and no cord signal change seen on her imaging. I think what we are dealing with is some neck discomfort that she gets occasionally from either 2 degenerative discs or the C3-4 spondylolisthesis, but in light of the lack of symptoms typically Dr. Yip would just treat this patient conservatively and recommend they follow- up with us periodically if she is continuing to have symptoms. I will review the imaging with him and get back to the patient if he has any other thoughts. Thank you for allowing us to care for your patient. The total time spent with this visit with this patient was 45 minutes reviewing history, physical exam, cervical imaging review, and implementation of treatment plan or further diagnostic testing Harley Yip MD,PhD [facility] Coding Level of Care Code New Pt Level 4 (69892) Diagnoses Anterolisthesis of cervical spine M43.12
[2024-03-08 12:56] VITALS: BMI 29.7
--- OUTSIDE RECORDS SUMMARY | 2024-03-08 17:23 | XMS_ITS | Encounter Summary ---
Author Organization [facility] Address [address] [place] [address] Care Team Providers Care Campaign Specialist Name Role Phone Barbara Victor Primary Care Provider [phone] Encounter Details Date Type Department Care Team (Late st Contact Info) Description 07/02/2016 Orders Only [facility] [address] [address] 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 MD [address] [place] [id number] Social History Tobacco Use Types Packs/Day Years Used Date Smoking Tobacco: Never Assessed Comments Unknown Sex and Gender Information Value Date Recorded Sex Assigned at Female 06/08/2020 8:39 AM EDT Legal Sex Female 12:40 PM EDT Gender Identity Female 06/08/2020 8:39 AM EDT Sexual Orientation Straight 06/08/2020 8: 39 AM EDT documented as of this encounter Plan of Treatment Not on file documented as of this encounter Visit Diagnoses Not on filedocumented in this encounter Care Teams Campaign Specialist Relationship Specialty Start Date End Date Barbara Victor [address] [place] [address] [place] [address] PCP - General Internal Medicine 06/24/17 documented as of this encounter
--- OUTSIDE RECORDS SUMMARY | 2024-03-08 17:23 | XMS_ITS | Encounter Summary ---
Author Organization [facility] Address [address] [place] [address] Care Team Providers Care Director Of Extension Work Name Role Phone Barbara Victor Primary Care Provider [phone] Encounter Details Date Type Department Care Team (Late st Contact Info) Description 09/24/2016 Orders Only [facility] [address] [address] 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 MD [address] [place] [id number] Social History Tobacco Use Types Packs/Day Years [...] on filedocumented in this encounter Care Teams Director Of Extension Work Relationship Specialty Start Date End Date Barbara Victor [address] [place] [address] [place] [address] PCP - General Internal Medicine 06/24/17 documented as of this encounter
--- OUTSIDE RECORDS SUMMARY | 2024-03-08 17:23 | XMS_ITS | Patient Health Record ---
Author [facility] Address [address] [place] [address] Care Team Providers Care Apparel Patternmaker Name Role Phone Barbara Victor Primary Care Provider Sergio Montelongo Unavailable [phone] Allergies Allergen (clinical drug ingredient) Drug/Non Drug Allergy documented on EMR Reaction Allergy Type Onset Date Status ciprofloxacin Cipro rash Drug Allergy Act danielle Levaquin rash Drug Allergy Active Results Component Value Reference Range Notes HEMOGLOBIN A1C (GLYCOHEMOGLO BIN) Reviewed date:03/11/2023 08:54:44 AM Interpretation: Performing Lab: Notes/Report: TOTAL HEMOGLOBIN (HGBA1C) 8.2 Reason For Referral No Information Medications Medication SIG (Take, Route, Frequency, Duration) Notes Start Date End Date Status Folic Acid 1 MG 1 tablet Orally Once a day for 30 day(s) Active Leflunomide Active Xeljanz 5 MG 1 tablet Orally Twice a day for 30 day(s) Active Jardiance 25 MG 1 tablet Orally Once a day Active Zolpidem Tartrate 10 MG 1 tablet at bedtime as needed Orally Once a day PRN Active amLODIPine Besylate Active Prednisone Temp last day 09/11/21 Not-Taking Diclofenac-miSOPROStol 75-0.2 MG 1 tablet with food Orally Twice a day Active Ciclopirox Olamine 0.77 % 1 application to affected area Externally to feet Twice a day for 30 days Not-Taking Levothyroxine Sodium 112 MCG 1 tablet in the morning on an empty stomach Orally Once a day for 30 day(s) Active Simvastatin 10 MG 1 tablet in the evening Orally Once a day for 30 day(s) Active Tradjenta 5 MG 1 tablet Orally Once a day Active Leflunomide & Diclofenac Sod Not-Taking Vitamin D 1 tablet Orally Once a day Active Terbinafine Not-Taki ng Methotrexate Sodium 10 MG as directed Orally once a week Not-Taking Lisinopril 10 MG 1 tablet Orally Once a day for 30 day(s) Not-Taking metFORMIN HCl 500 MG 1 tablet with a meal Orally four times a day Active Immunizations Vaccine Route Administration Date Status Comme nts COVID-19 Pfizer BioNTech Vaccine Unknown 11/09/2020 Administered 1st 01/30/2021 2nd 02/21/2020 Influenza Unknown 12/04/2021 Administered Social History Tobacco Use: Social History Observation Description Date Details (start date - stop date) Never Smoker NA - NA Tobacco Use/Smoking Question Answer Notes Are you a: nonsmoker Additional Findings: Tobacco Non-User Current no n-smoker Alcohol Screen Question Answer Notes Did you have a drink containing alcohol in the p ast year? No Points 0 Interpretation Negative Tobacco use other than smoking: Question Answer Notes Are you an other tobacco user? No Problems Problem Type SNOMED Code ICD Code Onset Dates Problem Status W/U Status Risk Notes Problem Type 2 diabetes mellitus with peripheral angiopathy ([id number]) Type 2 diabetes mellitus with diabetic peripheral angiopathy without gangrene (E11.51) Active confirmed Vital Signs Blood pressure diastolic 70 mm Hg 01/30/2024 Height 5ft 2.5in in 01/30/2024 Blood pressure systolic 120 mm Hg 01/30/2024 Weight 164 lbs 01/30/2024 BMI 29.51 kg/m2 01/30/2024 Procedures Procedure Date Ordered Date Performed Result Body Sit e 37236-SFZVAYF NAIL, 6 OR MORE 03/11/2023 N/A 87810-COZR SKIN LESIONS, OVER 4 03/11/2023 N/A 38835-TNOCSPW NAIL, 6 OR MORE 05/13/2023 N/A 40071-UQQP SKIN LESIONS, OVER 4 05/13/2023 N/A 66289-MYUBPET NAIL, 6 OR MORE 07/15/2023 N/A 85463-XJZS SKIN LESIONS, OVER 4 07/15/2023 N/A 19600-ZQDJJGE NAIL, 6 OR MORE 09/23/2023 N/A 76871-GEBJ SKIN LESIONS, OVER 4 09/23/2023 N/A 42277-WUWBGOH NAIL, 6 OR MORE 11/25/2023 N/A 89771-CXRQ SKIN LESIONS, OVER 4 11/25/2023 N/A 78830-EJWBTIW NAIL, 6 OR MORE 01/30/2024 N/A 40450-HBQE SKIN LESIONS, OVER 4 01/30/2024 N/A Encounters Encounter Location Date Provider Diagnosis [address] [address] 03/11/2023 [place] [place] Type 2 diabetes mellitus with diabetic peripheral angiopathy without gangrene E11.51 ; Tinea unguium B35.1 ; Pain in right toe(s) M79.674 and Pain in left toe(s) M79.[address] [address] 05/13/2023 Sergio [place] Type 2 diabetes mellitus with diabetic peripheral angiopathy without gangrene E11.51 ; Tinea unguium B35.1 ; Pain in right toe(s) M79.674 and Pain in left toe(s) M79.[address] [address] 07/15/2023 [place] [place] Type 2 diabetes mellitus with diabetic peripheral angiopathy without gangrene E11.51 ; Tinea unguium B35.1 ; Pain in right toe(s) M79.674 and Pain in left toe(s) M79.[address] [address] 09/23/2023 Sergio [place] Type 2 diabetes mellitus with diabetic peripheral angiopathy without gangrene E11.51 ; Tinea unguium B35.1 ; Pain in right toe(s) M79.674 and Pain in left toe(s) M79.[address] [address] 11/25/2023 Sergio [place] Type 2 diabetes mellitus with diabetic peripheral angiopathy without gangrene E11.51 ; Tinea unguium B35.1 ; Pain in right toe(s) M79.674 and Pain in left toe(s) M79.[address] [facility] [address] 01/30/2024 Sergio Mal[place] Type 2 diabetes mellitus with diabetic peripheral angiopathy without gangrene E11.51 ; Tinea unguium B35.1 ; Pain in right toe(s) M79.674 and Pain in left toe(s) M79.[address] [address] 11/25/2023 Sergio Malik Assessments Encounter Date Diagnosis (ICD Code) Assessment Notes Treatment Notes Treatment Clinical Notes Section Notes 03/11/2023 Type 2 diabetes mellitus with diabetic peripheral angiopathy without gangrene (ICD-10 - E11.51) 03/11/2023 Tinea unguium (ICD-10 - B35.1) 05/13/2023 Type 2 diabetes mellitus with diabetic peripheral angiopathy without gangrene (ICD-10 - E11.51) 05/13/2023 Tinea unguium (ICD-10 - B35.1) 07/15/2023 Type 2 diabetes mellitus with diabetic peripheral angiopathy without gangrene (ICD-10 - E11.51) 07/15/2023 Tinea unguium (ICD-10 - B35.1) 09/23/2023 Type 2 diabetes mellitus with diabetic peripheral angiopathy without gangrene (ICD-10 - E11.51) 09/23/2023 Tinea unguium (ICD-10 - B35.1) 11/25/2023 Type 2 diabetes mellitus with diabetic peripheral angiopathy without gangrene (ICD-10 - E11.51) 11/25/2023 Tinea unguium (ICD-10 - B35.1) 01/30/2024 Type 2 diabetes mellitus with diabetic peripheral angiopathy without gangrene (ICD-10 - E11.51) 01/30/2024 Tinea unguium (ICD-10 - B35.1) 01/30/2024 Pain in right toe(s) (ICD-10 - M79.674) 09/23/2023 Pain in right toe(s) (ICD-10 - M79.674) 11/25/2023 Pain in right toe(s) (ICD-10 - M79.674) 05/13/2023 Pain in right toe(s) (ICD-10 - M79.674) 07/15/2023 Pain in right toe(s) (ICD-10 - M79.674) 03/11/2023 Pain in right toe(s) (ICD-10 - M79.674) 03/11/2023 Pain in left toe(s) (ICD-10 - M79.675) 09/23/2023 Pain in left toe(s) (ICD-10 - M79.675) 07/15/2023 Pain in left toe(s) (ICD-10 - M79.675) 05/13/2023 Pain in left toe(s) (ICD-10 - M79.675) 11/25/2023 Pain in left toe(s) (ICD-10 - M79.675) 01/30/2024 Pain in left toe(s) (ICD-10 - M79.675) 03/11/2023 Other 05/13/2023 Other 07/15/2023 Other 09/23/2023 Other 11/25/2023 Other 01/30/2024 Other Plan Of Treatment Pending Test Test Name Order Date 34622-OFHMHAH NAIL, 6 OR MORE 12/10/2019 58460-HPEFJHA NAIL, 6 OR MORE 02/29/2020 69090-UTPGVVP NAIL, 6 OR MORE 05/30/2020 26439-ACVXXRO NAIL, 6 OR MORE 08/29/2020 41032-EQACTCM NAIL, 6 OR MORE 11/28/2020 90989-YKNBXDQ NAIL, 6 OR MORE 03/06/2021 55595-DKYTSLE NAIL, 6 OR MORE 06/08/2021 55263-ETXMGUT NAIL, 6 OR MORE 09/11/2021 51208-YHKPNCZ NAIL, 6 OR MORE 12/11/2021 68152-XHTXLAZ NAIL, 6 OR MORE 02/15/2022 55486-HXPVGEE NAIL, 6 OR MORE 05/28/2022 17152-HTLNIAF NAIL, 6 OR MORE 08/16/2022 64439-JAICRQD NAIL, 6 OR MORE 11/05/2022 75756-WLOMGPA NAIL, 6 OR MORE 01/07/2023 70088-VVUZDON NAIL, 6 OR MORE 03/11/2023 66313-OFDEWIR NAIL, 6 OR MORE 05/13/2023 40341-WKJAOEZ NAIL, 6 OR MORE 07/15/2023 01488-VEUSJAI NAIL, 6 OR MORE 09/23/2023 44686-XPELYZF NAIL, 6 OR MORE 11/25/2023 63287-TFSRJXT NAIL, 6 OR MORE 01/30/2024 81255-VSMT SKIN LESIONS, OVER 4 01/30/20 68565-HZVI SKIN LESIONS, OVER 4 11/25/19 16301-JGAY SKIN LESIONS, OVER 4 09/23/19 01502-KPLC SKIN LESIONS, OVER 4 07/15/19 07287-UDMM SKIN LESIONS, OVER 4 05/13/19 24 15136-GOWX SKIN LESIONS, OVER 4 03/11/19 24 88157-EECL SKIN LESIONS, OVER 4 01/08/20 23 71193-YIMV SKIN LESIONS, OVER 4 11/06/19 23 78117-ICZP SKIN LESIONS, OVER 4 08/17/19 23 02077-KEER SKIN LESIONS, OVER 4 05/29/19 23 40267-BBIE SKIN LESIONS, OVER 4 02/15/19 23 00991-JEQO SKIN LESIONS, OVER 4 12/12/19 55037-JTCN SKIN LESIONS, OVER 4 09/12/19 22 53341-UOSZ SKIN LESIONS, OVER 4 06/09/19 12259-YSYR SKIN LESIONS, OVER 4 03/06/19 10673-YHKG SKIN LESIONS, OVER 4 11/29/19 21 36265-UPXI SKIN LESIONS, OVER 4 08/30/19 21 42204-IUHY SKIN LESIONS, OVER 4 05/31/19 21 24302-FTJV SKIN LESIONS, OVER 4 02/28/19 61087-ANLR SKIN LESIONS, OVER 4 12/10/19 Next Appt Details Provider Name:Sergio Malik , 04/02/2024 08:45:00 AM, [address] [place] [address], [phone], Provider Name:Sergio Malik , 06/11/2024 08:45:00 AM, [address] [facility], [place], [address], Insurance Providers Payer Name Payer Address Payer Phone Subscriber Number Group Number Insured Name Patient Relationship to Insured Coverage Start Date Coverage End Date [employer] [address] [address] [place] [address] [id number] Joanna Tse Self - patient is the insured Medical (General) History Medical History History ICD Code Rheumatoid Arthritis Cancer - Thyroid High blood pressure Rheumatic fever Chicken pox Bone implants/screws CAD type II diabetes Surgical History Surgery Date(Month/Year) Thyroid Surgery 04/26,11/09/21 Broken wrist 05/25 bunion Surgery 2008 1984,1986 Right quad rupture repair 07/23/23 hysterectomy 06/09/2023
--- OUTSIDE RECORDS SUMMARY | 2024-03-08 17:23 | XMS_ITS | Encounter Summary ---
Author Organization [facility] Address [address] [place] [address] Care Team Providers Care Visualization Developer Name Role Phone Barbara Victor Primary Care Provider [phone] Encounter Details Date Type Department Care Team (Late st Contact Info) Description 03/25/2016 Orders Only [facility] [address] [address] 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 MD [address] [place] [address] Social History Tobacco Use Types Packs/Day Years [...] on filedocumented in this encounter Care Teams Visualization Developer Relationship Specialty Start Date End Date Barbara Victor [address] [place] [address] [place] [address] PCP - General Internal Medicine 06/24/17 documented as of this encounter
--- OUTSIDE RECORDS SUMMARY | 2024-03-08 17:23 | XMS_ITS | Encounter Summary ---
Author Organization [facility] Address [address] [place] [address] Care Team Providers Care Mine Environmental Engineer Name Role Phone ValenteBarbara Katelynn Primary Care Provider [phone] Reason for Visit * Reason Onset Date Comments Med Refill 03/30/2021 Encounter Details Date Type Department Care Team (Late st Contact Info) Description 03/30/2021 Telephone [facility] [address] [place] [address] Telephone Intake, Staff Med Refill Social History Tobacco Use Types Packs/Day Years Used Date Smoking Tobacco: Former Smokeless Tobacco: Never Comments:: Alcohol Use Standard Drinks/Week Comments Yes 0 (1 standard drink = 0.6 oz pur e alcohol) Comments Unknown Sex and Gender Information Value Date Recorded Sex Assigned at Female 06/08/2020 8:39 AM EDT Legal Sex Female 12:40 PM EDT Gender Identity Female 06/08/2020 8:39 AM EDT Sexual Orientation Straight 06/08/2020 8: 39 AM EDT documented as of this encounter Miscellaneous Notes * Telephone Encounter - Adelia Johnson LPN - 03/30/2021 2:00 PM EST 1st call- LM for pt to call clinic re [facility]. 2nd call- Spoke to Kyaw with [facility]- he reports the reason for the phone call is they need the PCP name and contact number; requested that pt call [facility] to verify PCP information. Informed him that endo clinic does not prescribe the Onglyza and he would need to speak further with Pt. 3rd call- Spoke to pt who reports speaking to [facility] earlier today- She reports they did not request PCP information rather they requested [facility] endo contact info and did not give a reason why. Since endo does not prescribe the med, nurse requested that pt call [facility] to resolve issue. * Telephone Encounter - Aziza Reid MD - 03/30/2021 1:06 PM EST I did not have records that Dr. Mcclain or I were prescribing this medication. Please check with the patient and contact the pharmacy to fax prescription to the prescriber or please let me know if the patient chooses that we prescribed this medication for her. Thank you Dr. Reid * Telephone Encounter - Collette Eli - 03/30/2021 12:09 PM EST Est. Pt of Dr. Franklin Almonte calling from [facility] This is her second attempt at trying to get a renewal for pt (Onglyza 5mg) Please call or fax to: Please: use reference #[id number] documented in this encounter Plan of Treatment Not on file documented as of this encounter Visit Diagnoses Not on filedocumented in this encounter Care Teams Mine Environmental Engineer Relationship Specialty Start Date End Date Barbara Victor [address] [place] [address] dr [place]a [place], [place] [address] PCP - General Internal Medicine 06/24/17 documented as of this encounter
--- OUTSIDE RECORDS SUMMARY | 2024-03-08 17:23 | XMS_ITS | Referral Summary ---
Author Organization [facility] Address [address] [place] [address] Care Team Providers Care Duct Layer Supervisor Name Role Phone ValenteBarbara Katelynn Primary Care Provider [phone] Allergies Active Allergy Reactions Criticality Noted Date Comments Ciprofloxacin Rash 09/03/2018 Medications folic acid (FOLVITE) 1 mg tablet Take 1 mg by mouth daily. Active ONETOUCH DELICA LANCETS MISC TEST 2 TIMES / DAY BEFORE BREAKFAST AND AFTER DINNER Active OneTouch Verio test stripsIndications :Type 2 diabetes mellitus without complication, without long-term current use of insulin (CMS/HCC) (HCC) 1 strip daily. 100 strip 3 7 Active zolpidem (AMBIEN) 10 mg tabletIndications :Insomnia, unspecified type Take 1 tablet (10 mg total) by mouth nightly as needed for sleep. 30 tablet 5 7 Active lisinopril (PRINIVIL,ZESTRIL ) 10 mg tabletIndications :Essential hypertension TAKE 1 TABLET DAILY 90 tablet 1 7 Active simvastatin (ZOCOR) 10 mg tablet One every evening. 0 Active metFORMIN (GLUCOPHAGE) 500 mg tablet Take 1 tablet (500 mg total) by mouth 2 times a day with meals. 180 tablet 1 Active glimepiride (AMARYL) 2 mg tablet TAKE ONE-HALF (1/2) TABLET EVERY MORNING BEFORE BREAKFAST 45 tablet 3 1 Active levothyroxine (SYNTHROID, LEVOTHROID) 112 mcg tablet 1 tablet daily on empty stomach 90 tablet 3 1 Active cholecalciferol, vitamin D3, 125 mcg (5,000 unit) capsule Take 1 capsule (5,000 Units total) by mouth 3 times a week. 2 Active Januvia 50 mg tablet Take 50 mg by mouth once a day. 2 Active econazole nitrate 1% cream 3 Active triamcinolone acetonide (KENALOG) 0.1% ointment 3 Active Flowflex COVID-19 Ag Home Test kit 3 Active linaGLIPtin (Tradjenta) 5 mg tablet 1 tablet every 24 hours. Active norethindrone (AYGESTIN) 5 mg tablet Take 5 mg by mouth. 3 Active clobetasoL (TEMOVATE) 0.05% cream 3 Active methotrexate (TREXALL) 2.5 mg tablet TAKE 5 TABS BY MOUTH WEEKLY 60 tablet 4 Active miSOPROStoL (CYTOTEC) 200 mcg tablet TAKE 1 TABLET BY MOUTH TWICE DAILY 180 tablet 3 4 Active Active Problems Problem Noted Date Diagnosed Date Hypercalcemia 12/18/2020 Overview (12/18/2020): 11/2020 hypercalcemia recurred - see labs scanned Dietary calcium deficiency 10/13/2020 History of primary hyperparathyroidism 1 Renal insufficiency 06/12/2020 Stage 3b chronic kidney disease 02/08/2020 Overview (12/03/2019): Reaplcing Diagnoses that were inactivated after 11/11/2019 regulatory diagnosis import. Assessment & Plan (09/12/2019 1:23 PM EDT): She needs a nephrology evaluation. I will again try to schedule her with Dr. Deluca. I am concerned about her continuing to take diclofenac and methotrexate on a regular basis with a reduced GFR. Chronic left shoulder pain 07/03/2017 Hypercholesteremia 06/01/2017 Assessment & Plan (03/15/2019 7:11 AM EST): She is on a low intensity statin. I assume Dr. Victor is following her lipid levels. Assessment & Plan (06/01/2017 8:58 PM EDT): Her non-HDL cholesterol is at the goal of less than 130 for diabetics. Hypothyroidism, postsurgical 05/01/2016 Assessment & Plan (05/21/2018 12:49 PM EDT): Her TSH is significantly below the lower limit of normal which increases her chances of developing osteoporosis. I will lower her dose of levothyroxine a bit. Assessment & Plan (12/08/2017 6:38 AM EDT): Her TSH is a bit low and her Free T4 quite normal which is appropriate given her persistent PTC. Assessment & Plan (11/30/2016 5:36 PM EDT): Since her TSH was undetectable, she needs a reduction in her levothyroxine dose. Since her Free T4 was normal, the reduction in dose should be small. Papillary thyroid carcinoma 04/30/2016 Overview (06/30/2017): 1.5 cm PTC in thyroidectomy specimen 04/26. Nodes looked abnormal during surgery. 07/17 nodes positive for PTC. RIGGINS 90 mCi 07/27. Thyrogen TG 2.0 ng/mL 06/27. Assessment & Plan (09/12/2019 1:21 PM EDT): Her suppressed serum thyroglobulin level remains detectable consistent with her being at some risk for a recurrence of her papillary cancer. Consequently, she should have a TSH level that is borderline low or suppressed along with a normal Free T4. Her TSH today is a little more suppressed than ideal, but her level had been in the middle of the normal range when she was taking 100 rather than 112 mcg of levothyroxine daily. Her Free T4 is in the middle of the normal range which is reassuring in terms of her not taking too much levothyroxine. I will order another neck ultrasound on her. Assessment & Plan (03/15/2019 7:07 AM EST): Her Thyrogen stimulated thyroglobulin level was borderline between intermediate and high risk for recurrence in 2018. I scheduled her for another neck ultrasound. She did not want to have her lab drawn today, as she was in a hurry to leave. She will have a thyroglobulin, anti-thyroglobulin antibody, and TSH/reflex Free T4 when she returns for the neck ultrasound. Assessment & Plan (05/21/2018 12:49 PM EDT): Her thyroglobulin remains detectable, but barely detectable consistent with her having persistent but non-progressive disease. Assessment & Plan (12/08/2017 6:37 AM EDT): Her TG level remains detectable, but is lower than her previous level in May. This is consistent with her having persistent but not progressive residual disease. She will be having a neck ultrasound in the near future. Assessment & Plan (06/01/2017 8:54 PM EDT): Thyroglobulin remains detectable suggesting she is at some risk for a recurrence. I will schedule a Thyrogen stimulated thyroglobulin level to better assess her risk for a recurrence. Her TSH is too low, so I will reduce her dose of levothyroxine a bit. Assessment & Plan (11/30/2016 5:34 PM EDT): Her thyroglobulin is much lower than before her RIGGINS suggesting she is at moderate risk for a recurrence. Hopefully, her TG level will drift downwards due to the cumulative effects of her RIGGINS in July. I will order a neck ultrasound now. I will plan on obtaining a Thyrogen stimulated TG level on her in 6 months. High risk medication use 03/18/2016 Vitamin D deficiency 07/09/2014 Insomnia 06/20/2014 Osteopenia 06/18/2014 Overview (11/01/2016): T-0.3 LS, -1.1 TH, and -1.0 cortical forearm in 06/24. Benign essential hypertension 01/27/2014 Assessment & Plan (09/12/2019 1:23 PM EDT): Her pressure today is good. Assessment & Plan (03/15/2019 7:11 AM EST): Her pressure today was good. Assessment & Plan (05/21/2018 12:50 PM EDT): Her pressure is good today. Assessment & Plan (06/01/2017 8:58 PM EDT): Her pressure is borderline today. Assessment & Plan (11/30/2016 5:49 PM EDT): Her pressure is good on lisinopril. Type 2 diabetes mellitus wit h hyperglycemia, without long-term current use of insulin 02/09/2012 Overview (03/10/2019): Onset 2011. Assessment & Plan (09/12/2019 1:21 PM EDT): Her A1c in June of 6.8% and her recent fasting sugars are reasonable. Assessment & Plan (03/15/2019 7:10 AM EST): Her control is reasonable based on her A1c from November. However, she has CKD and should be on a SGLT-2 inhibitor for renal protection according to ADA guidelines. The most appropriate option at this time is to substitute a SGLT-2i for her glimepiride . This would eliminate her risk for hypoglycemia. We chose canagliflozin based on the data from the CREDENCE study. She will have a urine microalbumin when she returns for her neck ultrasound. Assessment & Plan (12/08/2017 6:40 AM EDT): Her sugars are a bit high on combined oral therapy. Assessment & Plan (06/01/2017 8:56 PM EDT): Her A1c is too high, as are her fasting sugars at home. She should add a second agent with the best options being a SGLT-2 inhibitor, a DPP-4 inhibitor, or a GLP-1 agonist. She prefers not to do so at this time, but will work on her diet and exercise. She was advised to contact Dr. Napier or me if her fasting sugars remain above 130 mg/dL despite her best efforts. Assessment & Plan (11/30/2016 5:40 PM EDT): She needs a meter to test her sugars. Her last A1c was a bit high at 7.4% in February. 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 Problems Problem Noted Date Diagnosed Date Resolved Date Hyperkalemia 04/08/2019 02/08/2020 High risk medication use 12/31/2016 Primary hyperparathyroidism 11/29/2015 11/30/2016 Immunizations Name Administration Dates Next Due Influenza, Injectable, Quadr ivalent, Contains Preservative 10/29/2017,11/13/2016,10/14/2016,10/31 Influenza, Injectable, Quadr ivalent, Preservative Free 11/17/2019,12/01/2018,11/21/2017 Pneumococcal Polysaccharide Vaccine, 23 Valent 12/26/2014,11/16/2014 Tetanus Toxoid, Reduced Diph theria Toxoid, and Acellular Pertussis Vaccine, Adsorbed 02/10/2013,02/20/2012 Social History Tobacco Use Types Packs/Day Years Used Date Smoking Tobacco: Former Passive Smoke Exposure: Past Smokeless Tobacco: Never Tobacco Cessation:Counseling Given: Not Answered Comments:: Alcohol Use Standard Drinks/Week Comments Yes 0 (1 standard drink = 0.6 oz pur e alcohol) Comments No Sex and Gender Information Value Date Recorded Sex Assigned at Female 06/08/2020 8:39 AM EDT Legal Sex Female 12:40 PM EDT Gender Identity Female 06/08/2020 8:39 AM EDT Sexual Orientation Straight 06/08/2020 8: 39 AM EDT Last Filed Vital Signs Vital Sign Reading Time Taken Comments Blood Pressure 122/77 11/26/2022 2:59 PM EDT Pulse 82 11/26/2022 2:59 PM EDT Temperature 36.8 ??C (98.3 ??F) 11/26/2022 2:59 PM ED T Respiratory Rate 16 06/29/2021 1:46 PM EDT Oxygen Saturation 93% 06/29/2021 1:46 PM EDT Inhaled Oxygen Concentration - - Weight 78.5 kg (173 lb 1.6 oz) 11/26/2022 2:59 P M EDT Height 160 cm (5' 3 ) 11/26/2022 2:59 PM EDT Body Mass Index 30.66 11/26/2022 2:59 PM EDT Plan of Treatment Not on file Procedures * Due to [place] state law, this organization might not be sharing negative HIV tests. Procedure Name Priority Date/Time Associated Diagnosis Comments MICROALBUMIN, RANDOM URINE WITH CREATININE Routine 01/24/2020 9:14 AM EST Stage 3b chronic kidney disease BASIC METABOLIC PANEL, OUTSIDE LAB Routine 08/30/2019 HEMOGLOBIN A1C Routine 05/28/2017 3:55 PM EDT Type 2 diabetes mellitus without complication, without long-term current use of insulin ([facility]) DIABETES EYE EXAM Routine 07/31/2016 9:16 AM EDT MAMMOGRAPHY Routine 05/15/2016 12:00 AM EDT PAP W/HPV, CONVERSION Routine 06/17/2014 10:55 AM EDT HEPATITIS C ANTIBODY W/REFLEX TO HCV RNA, QUANTITATIVE PCR Routine 03/03/2014 2:31 PM EST from Last 3 Months or Most Recently Relevant to Health Maintenance Results * Due to [place] [employer] law, this organization might not be sharing negative HIV tests. * (ABNORMAL) Microalbumin/Creatinine Urine Ratio, Random (01/24/2020 9:14 AM EST) Microalbumin, Urine 5.0 mg/dL 01/24/2020 11:04 AM EST [facility] Creatinine, Urine 23 15 - 278 mg/dL 01/24/2020 11:04 AM EST [facility] Microalb/Creat Ratio, Random Urine 217.4(H) <30.0 mcg/mgCr 01/24/2020 11:04 AM EST [facility] Comment: Microalbumin Reference Range: Normal ? <30 mcg/mg Creatinine Microalbuminuria ? 30-300 mcg/mg Creatinine Clinical Albuminuria >300 mcg/mg Creatinine Reference: ADA Guideline. Diabetes Care. 2004;27 (suppl 1) Urine Voided urine specimen / Unknown Non-Blood Collection / Unknown 01/24/2020 9:14 AM EST 01/24/2020 10:30 AM EST us Meaghan Ziegler MD LAB URINE ORDERABLES Final Res ult [facility] [address] [place] [address], [place] * (ABNORMAL) Basic Metabolic Panel, Outside Lab (08/30/2019) Potassium 4.9 Creatinine 1.45(H) mg/dL eGFR Non- 37(L) Blood Structure of peripheral vein / Unknown 08/30/2019 us Unknown Provider LAB BLOOD ORDERABLES Final R esult * (ABNORMAL) Hemoglobin A1c (05/28/2017 3:55 PM EDT) Hemoglobin A1C 7.6(H) <5.7 % of total Hgb 05/28/2017 10:49 PM EDT [facility] Comment: For someone without known diabetes, a hemoglobin A1c value of 6.5% or greater indicates that they may have diabetes and this should be confirmed with a follow-up test. For someone with known diabetes, a value <7% indicates that their diabetes is well controlled and a value greater than or equal to 7% indicates suboptimal control. A1c targets should be individualized based on duration of diabetes, age, comorbid conditions, and other considerations. Currently, no consensus exists regarding use of hemoglobin A1c for diagnosis of diabetes for children. ?? eAG (MG/DL) 171 (calc) 05/28/2017 10:49 PM EDT [facility] eAG (MMOL/L) 9.5 (calc) 05/28/2017 10:49 PM EDT [facility] Blood specimen (specimen) Structure of peripheral vein / Unknown Venipuncture / Unknown 05/28/2017 3:55 PM EDT 05/28/2017 4:30 PM EDT Narrative [facility] - 05/28/2017 10:49 PM EDT [facility] Received Date:[id number] Jose Manuel Bell MD LAB BLOOD ORDERABLES Final Re sult [facility] [address], [place] [address], [place] [phone] [employer] [facility] [address], [place] [address], [place] [phone] * DIABETES EYE EXAM (07/31/2016 9:16 AM EDT) Eye Exam [id number] [facility] MANUAL RESULTS 07/31/2016 9:16 AM EDT Benita Napier MD HEALTH MAINTENANCE Final Resul t [facility] MANUAL RESULTS * MAMMOGRAPHY (05/15/2016 12:00 AM EDT) Mammogram Benign/ there are scattered areas of fibroglandular density . No significant change from prior study 2 OUTSIDE LABORATORY Anatomical Region Laterality Modality Other 05/15/2016 Historical Conversion Provider HEALTH MAINTENANC E Final Result * Pap w/HPV (06/17/2014 10:55 AM EDT) Path Procedure TPGAS ([id number]) 1 ?? HPVHR([id number]) 1 ?? Edited by: [id number] JOI ?? [id number] 1324 -SCRPT6 [facility] Specimen Labeled As: 1 CERVICAL/ENDOCERVI MAKAYLA CYTO MATERIAL - Edited by: [id number] [facility] Additional Test Information Specimens were tested for high risk HPV using the FDA approved Digene Hybrid ?? Capture II kit, in the Diagnostic Molecular Oncology Lab at [facility] ?? Health Care. ??This test can detect HPV high risk types 16, 18, 31, 33, 35, 39, ?? 45, 51, 52, 56, 58, 59 and 68. ? High-risk subtypes of HPV are found in ~96% of patients with high grade ?? squamous intraepithelial lesions and cervical squamous cell carcinoma. ?? Additional studies may be indicated in spite of a negative HPV test, e.g. ?? in patients with a friable cervix or multiple previous abnormal Pap tests. ??HPV ?? testing is not recommended for managing patients with atypical glandular cells. ?? Not all high-risk HPV infections are associated with a histologic or cytologic ?? abnormality. ??We endorse the recommendations of the [place] Society for ?? Colposcopy and Cervical Pathology for management of Pap test results, available ?? at www.asccp.org. ? ASCCP guidelines also recommend HPV 16/18 genotyping in patients over the age ?? of 30 who have had positive high risk HPV testing, but have a negative ?? morphologic Pap test (http://www.asccp. org/consensus.shtm l). ? The performance characteristics of this test have been validated by the ?? Laboratory of Diagnostic Molecular Oncology. ??They have not been cleared or ?? approved by the U.S. ??Food and Drug Administration (FDA). The FDA has ?? determined that such clearance or approval is not necessary. ??The laboratory is ?? certified (CLIA-88) to perform high complexity clinical laboratory testing. ?? Edited by: [id number] - 1324 -SCRPT6 [facility] Diagnosis ThinPrep Pap Test ? Adequacy: Satisfactory for evaluation ? Interpretation: Negative for Intraepithelial Lesion or Malignancy ? Remarks/Recommenda tions: ?? This is the result of a morphological screening test with an inherent ?? possibility of a false negative interpretation. ?? This Pap test was examined in accordance with the [facility] Cytopathology ?? Laboratory written policy, which incorporates all CLIA mandates. Screening ?? guidelines can be found in Am J Clin Pathol 2012;137:516-542. ??We endorse the ?? practice guidelines developed by ASCCP and published in the Journal Lower ?? Genital Tract Disease 17(5):S1-S27 (2012). ? This Pap test was examined by the ThinPrep Imaging System, [employer], [place], [place]. ?- High risk HPV DNA subtypes: NEGATIVE ?? Edited by: [id number] -SCRPT6 ?? [id number] FERRAROLaurie [facility] Gynecologic Clinical Data Specimen source:, THINPREP (CERVICAL AND ENDOCERVICAL) [facility] Gynecologic Clinical Data Gynecologic findings:, POST MENOPAUSAL [facility] Pathology Codes Client Order Code:, TPHGS3 [facility] Pathology Codes Bill Type:, 3RD LIBERTARIAN BILLING [facility] Completed Report [id number] HPV, HIGH RISK TYPES 1 [facility] Marker 1 [facility] Marker 2 MD SHLOMO NEGATIVE [facility] Marker 3 NILM,NILM [facility] Marker 4 RIM,RECEIVED IN MOLECULAR [facility] Marker 5 CRISTY GHOSH-ANDI [facility] Cc Results To COMPA Bishop [employer] DIV[employer] DIRECTOR ??[id number] ?? JOHNNY SIU ??[id number] [facility] Signature REPORT SIGNED: TOR LAURA 06/29/14 [facility] Sign Out Audit TOR LAURA [id number] FINAL [place] [id number] [facility] Cytology / Unknown 10:55 AM EDT 06/20/2014 10:55 AM EDT us Juliet Napier MD LAB HISTORICAL RESULT S Final Result [facility] [address] [place] [address], [place] * Hepatitis C Antibody w/Reflex to HCV RNA, Quantitative PCR (03/03/2014 2:31 PM EST) Hepatitis C Antibody NON-REACTI VE NON-REACT CRISTINA ENEIDA SULPHUR Signal To Cut-Off 0.06 <1.[address] 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 dical Dec Making (Adv.Dir) Care Teams Duct Layer Supervisor Relationship Specialty Start Date End Date Barbara Victor [address] [place] [address] [place] [address] PCP - General Internal Medicine 06/24/17
--- OUTSIDE RECORDS SUMMARY | 2024-03-08 17:23 | XMS_ITS | Clinical Summary ---
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 Problems [...] Toxoid, and Acellular Pertussis Vaccine, Adsorbed 02/10/2013,02/20/2012 Family History Medical History Relation Name Comments No Known Problems Daughter Heart disease Father Breast cancer Maternal Half-sister Alzheimer's disease Mother Heart disease Mother CABG Rheum arthritis Sister 1 Diabetes type II Sister 2 No Known Problems Son Relation Name Status Comments Daughter Alive Father Maternal Half-sister Alive Mother Paternal Grandfather Alive Sister 1 Alive Sister 2 Alive Sister 3 Alive Son Alive Social History Tobacco Use Types Packs/Day Years [...] 11/26/2022 2:59 PM EDT Plan of Treatment Health Maintenance Due Date Last Done Comments Cologuard 1960 Colon Cancer Screening 1960 Colonoscopy 1960 FOBT / Fit Test 1960 HIV Screening 1960 Sigmoidoscopy 1960 Zoster Vaccines (1 of 2) 08/13/1978 CT Lung Cancer Screening (Baseline) 08/13/2009 Pneumococcal Vaccine: Pediatric (0-5 Years) and At-Risk Patients (6-64 Years) (3 of 3 - PCV) 12/27/2015 12/26/2014, 11/16/2014 Pap Smear 06/17/2017 06/17/2014, 06/2011, 05/03/2008, Additional history exists Ophthalmology Exam 07/31/2017 07/31/2016, 03/12/2013 Mammogram 05/15/2018 05/15/2016, 03/13, 03/29/2014, Additional history exists Cervical Cancer Screening 06/18/2019 HPV and Pap Smear 06/18/2019 06/17/2014, , 05/03/2008, Additional history exists Hemoglobin A1C 07/24/2020 01/24/2020, 05/11, 03/08/2016, Additional history exists Basic Metabolic Panel 08/29/2020 08/30/2019 , 12/24/2018, 06/24/2016, Additional history exists Urine Microalbumin 01/23/2021 01/24/2020, 0 04/06/2019, 04/06/2014 DTaP,Tdap,and Td Vaccines (3 - Td or Tdap) 02/10/2023 02/10/2013, 02/20/2012 COVID-19 Vaccine ( season) 2023 09/18/2021, 11/09/2020, 02/21/2020, Additional history exists Influenza Vaccine (#1) 2023 2, 11/23/2020, 11/17/2019, Additional history exists Alcohol/Substance Use Screening 02/11/2024 Depression Screening and Follow-Up 02/11/2024 Social Drivers of Health Annual Screening 02/11/2024 RSV Vaccine (60+ years old and patients) (1 - 1-dose 75+ series) 08/13/2034 Hepatitis C Screening Completed 03/03/2014 Hepatitis B Vaccines Aged Out No long er eligible based on patient's age to complete this topic Procedures * Due to [facility] law, this organization might not be sharing negative HIV tests. Procedure Name Priority Date/Time Associated Diagnosis Comments MICROALBUMIN, RANDOM URINE WITH CREATININE Routine 01/24/2020 9:14 AM EST Stage 3b chronic kidney disease BASIC METABOLIC PANEL, OUTSIDE LAB Routine 08/30/2019 HEMOGLOBIN A1C Routine 05/28/2017 3:55 PM EDT Type 2 diabetes mellitus without complication, without long-term current use of insulin ([facility]) DIABETES EYE EXAM Routine 07/31/2016 9:16 AM EDT MAMMOGRAPHY Routine 05/15/2016 12:00 AM EDT PAP W/HPV, CONVERSION Routine 06/17/2014 10:55 AM EDT HEPATITIS C ANTIBODY W/REFLEX TO HCV RNA, QUANTITATIVE PCR Routine 03/03/2014 2:31 PM EST from Last 3 Months or Most Recently Relevant to Health Maintenance Results * Due to [facility] law, this organization might not be sharing negative HIV tests. * (ABNORMAL) Microalbumin/Creatinine Urine Ratio, Random (01/24/2020 9:14 AM EST) Microalbumin, Urine 5.0 mg/dL 01/24/2020 11:04 AM EST [facility] Creatinine, Urine 23 15 - 278 mg/dL 01/24/2020 11:04 AM EST [facility] Microalb/Creat Ratio, Random Urine 217.4(H) <30.0 mcg/mgCr 01/24/2020 11:04 AM EST [facility] Comment: Microalbumin Reference Range: Normal ? <30 mcg/mg Creatinine Microalbuminuria ? 30-300 mcg/mg Creatinine Clinical Albuminuria >300 mcg/mg Creatinine Reference: ADA Guideline. Diabetes Care. 2004;27 (suppl 1) Urine Voided urine specimen / Unknown Non-Blood Collection / Unknown 01/24/2020 9:14 AM EST 01/24/2020 10:30 AM EST us Meaghan Ziegler MD LAB URINE ORDERABLES Final Res ult [facility] [address] [place] [address] * (ABNORMAL) Basic Metabolic Panel, Outside Lab (08/30/2019) Potassium 4.9 Creatinine 1.45(H) mg/dL eGFR Non- 37(L) Blood Structure of peripheral vein / Unknown 08/30/2019 us Unknown Provider LAB BLOOD ORDERABLES Final R esult * (ABNORMAL) Hemoglobin A1c (05/28/2017 3:55 PM EDT) Hemoglobin A1C 7.6(H) <5.7 % of total Hgb 05/28/2017 10:49 PM EDT [facility] Comment: For someone without known diabetes, a [...] (MG/DL) 171 (calc) 05/28/2017 10:49 PM EDT [facility] eAG (MMOL/L) 9.5 (calc) 05/28/2017 10:49 PM EDT [facility] Blood specimen (specimen) Structure of peripheral vein / Unknown Venipuncture / Unknown 05/28/2017 3:55 PM EDT 05/28/2017 4:30 PM EDT Narrative [facility] - 05/28/2017 10:49 PM EDT [facility] Received Date:[id number] Jose Manuel Bell MD LAB BLOOD ORDERABLES Final Re sult Performing Organization Address City/[facility]/ZIP Co de Phone Number [facility] [address], [place] [address], [facility] [address] [place] [address], * DIABETES EYE EXAM (07/31/2016 9:16 AM EDT) Eye Exam [id number] [facility] MANUAL RESULTS 07/31/2016 9:16 AM EDT Benita Napier MD HEALTH MAINTENANCE Final Resul t Performing Organization Address [facility]/ZIP Co de Phone Number [facility] MANUAL RESULTS * MAMMOGRAPHY (05/15/2016 12:00 AM EDT) Mammogram Benign/ there are scattered areas of fibroglandular density . No significant change from prior study 2 OUTSIDE LABORATORY Anatomical Region Laterality Modality Other 05/15/2016 us Historical Conversion Provider HEALTH MAINTENANC E Final Result * Pap w/HPV (06/17/2014 10:55 AM EDT) Path Procedure TPGAS (523979) 1 ?? HPVHR([id number]) 1 ?? Edited by: [id number] - 2040 [id number] ?? [id number] [facility] Specimen Labeled As: 1 CERVICAL/ENDOCERVI MAKAYLA CYTO MATERIAL - Edited by: [id number] [facility] Additional Test Information Specimens were tested for high risk HPV using the FDA approved Digene Hybrid ?? Capture II kit, in the Diagnostic Molecular Oncology Lab at [facility] ?? Health Care. ??This test can detect [...] abnormality. ??We endorse the recommendations of the [place] Society for ?? Colposcopy and Cervical Pathology [...] complexity clinical laboratory testing. ?? Edited by: [id number] - 7 BW-SCRPT6 [facility] Diagnosis ThinPrep Pap Test ? Adequacy: Satisfactory for evaluation ? Interpretation: Negative for Intraepithelial Lesion or Malignancy ? Remarks/Recommenda tions: ?? This is the result of a morphological screening test with an inherent ?? possibility of a false negative interpretation. ?? This Pap test was examined in accordance with the [facility] Cytopathology ?? Laboratory written policy, which incorporates all CLIA mandates. Screening ?? guidelines can be found in Am J Clin Pathol 2012;137:516-542. ??We endorse the ?? practice guidelines developed by ASCCP and published in the Journal Lower ?? Genital Tract Disease 17(5):S1-S27 (2013). ? This Pap test was examined by the ThinPrep Imaging System, [employer], [place], [place]. ?- High risk HPV DNA subtypes: NEGATIVE ?? Edited by: [id number] - 4300 -SCRPT6 ?? [id number] FERRSAEED [facility] Gynecologic Clinical Data Specimen source:, THINPREP (CERVICAL AND ENDOCERVICAL) [facility] Gynecologic Clinical Data Gynecologic findings:, POST MENOPAUSAL [facility] Pathology Codes Client Order Code:, TPHGS3 [facility] Pathology Codes Bill Type:, 3RD REPUBL[employer] BILLING [facility] Completed Report [id number] HPV, HIGH RISK TYPES 1 [facility] Marker 1 TOR GOMES [facility] Marker 2 MDNEG,MD NEGATIVE [facility] Marker 3 NILM,NILM [facility] Marker 4 RIM,RECEIVED IN MOLECULAR [facility] Marker 5 CRISTY GHOSH-ANDI [facility] Cc Results To COMPA GODDARD K. EPIC ANESTHESIA ANALYST ??[id number] ?? JOHNNY SIU ??[id number] [facility] Signature REPORT SIGNED: TOR LAURA 06/29/14 [facility] Sign Out Audit TOR LAURA [id number] FINAL [place] [id number] [facility] Cytology / Unknown 10:55 AM EDT 06/20/2014 10:55 AM EDT Juliet Napier MD LAB HISTORICAL RESULT S Final Result [facility] [address] [place] [address], * Hepatitis C Antibody w/Reflex to HCV RNA, Quantitative PCR (03/03/2014 2:31 PM EST) Hepatitis C Antibody NON-REACTI VE NON-REACT CRISTINA [facility] Signal To Cut-Off 0.06 <1.00 [facility] 03/03/2014 2:31 PM EST 03/03/2014 3:50 PM EST Jessi Garcia LAB BLOOD ORDERABLES Final Resul t ENEIDA MCGARRY from Last 3 Months or Most Recently Relevant to Health Maintenance Insurance [employer] Advance Directives Documents on File Type Date Recorded 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
--- OUTSIDE RECORDS SUMMARY | 2024-03-08 17:23 | XMS_ITS ---
[facility] Address [address] [place] [address] Care Team Providers Care Medical Reimbursement Manager Name Role Phone Barbara Victor Primary Care Provider Sergio Montelongo Unavailable [phone] REASON FOR VISIT [place] Encounters Encounter Location Date Provider Diagnosis [address] [address] 11/25/2023 Sergio Malik Plan Of Treatment Next Appt Details Provider Name:Sergio aMlik , 04/02/2024 08:45:00 AM, [address] [place] [address], [phone], Provider Name:Sergio Malik , 06/11/2024 08:45:00 AM, [address] [place] [address], [phone], Progress Notes * Joanna TSE MDOB:1960 (63 yo F)Acc No.[id number]:11/25/2023 Patient:?Joanna Tse :1960???Age:63 Y???Sex:Female [address] [facility] [facility] [address] , [place], [address] * true * Date:? Generated for Printi ng/Famaryanng/eTransmitting on:?03/08/2024 05:23 PM EST
--- OUTSIDE RECORDS SUMMARY | 2024-03-08 17:23 | XMS_ITS | Clinical Summary ---
Author Organization [facility] Address [address] [id number] Care Team Providers Care Cone Examiner Name Role Phone Anderson Sanchez Primary Care Provider [phone] Allergies No known active allergies Medications Diclofenac-Mis oprostol (ARTHROTEC 75) 75-200 MG-MCG OR TABS 1 TABLET 2 TIMES DAILY Active Methotrexate, Anti-Rheumatic , 2.5 MG OR TABS 3 TABLETS EVERY WEEK Active InFLIXimab (REMICADE) 100 MG IV SOLR 5 MG/KG INTRAVENOUSLY EVERY 6 WEEKS Active Lisinopril 10 MG Tab 1 TABLET DAILY Activ e Active Problems No known active problems Social History Tobacco Use Types Packs/Day Years Used Date Smoking Tobacco: Never Alcohol Use Standard Drinks/Week Comments Not Asked 0 (1 standard drink = 0.6 oz pur e alcohol) Comments No Sex and Gender Information Value Date Recorded Sex Assigned at Not on file Legal Sex Female 1:04 AM EDT Gender Identity Not on file Sexual Orientation Not on file Last Filed Vital Signs Vital Sign Reading Time Taken Comments Blood Pressure 140/75 07/29/2013 7:31 PM EDT Pulse 61 07/29/2013 7:31 PM EDT Temperature 36.7 ??C (98 ??F) 07/29/2013 7:31 PM EDT Respiratory Rate - - Oxygen Saturation - - Inhaled Oxygen Concentration - - Weight 87.1 kg (192 lb) 07/29/2013 7:31 PM EDT Height 161.3 cm (5' 3.5 ) 07/29/2013 7:31 PM EDT Body Mass Index 33.48 07/29/2013 7:31 PM EDT Plan of Treatment Health Maintenance Due Date Last Done Comments Hepatitis C Screening 1960 Pap Smear 1975 DTaP/Tdap/Td (1 - Tdap) 08/13/1977 Mammogram/Breast Imaging 1999 Pneumococcal 50+ years (1 of 1 - PCV) 08/13/2009 Zoster (Shingrix) (1 of 2) 08/13/2009 COVID-19 Vaccine ( - 2023-2 5 season) 2023 Influenza (#1) 2023 RSV (1 - 1-dose 75+ series) 08/13/2034 HPV Vaccine Aged Out No longer eligi ble based on patient's age to complete this topic Hep A Aged Out No longer eligi ble based on patient's age to complete this topic Hep B Aged Out No longer eligi ble based on patient's age to complete this topic Hib Aged Out No longer eligi ble based on patient's age to complete this topic Meningococcal ACWY Aged Out No longer eligible based on patient's age to complete this topic Zoster (Zostavax) Discontinued Insurance [facility] FEE FOR SERVICE PPO * Guarantor: JAV[employer] TSE Account Type Relation to Patient Date of Phone Billing Address [employer] [address] [place] [address] EYEMED ACCESS Care Teams Cone Examiner Relationship Specialty Start Date End Date Anderson Sanchez [address] [address] PCP - General Rheumatology 06/10/12
--- OUTSIDE RECORDS SUMMARY | 2024-03-08 17:24 | XMS_ITS ---
Author Organization [facility] Nery mullen [place] Address [address] [place] [address] Care Team Providers Care Manager Statistical Programming Name Role Phone Barbara Victor Primary Care Provider Sergio Montelongo Unavailable [phone] Allergies Allergen (clinical drug ingredient) Drug/Non Drug Allergy documented on EMR Reaction Allergy Type Onset Date Status ciprofloxacin Cipro rash Drug Allergy Act danielle Levaquin rash Drug Allergy Active REASON FOR VISIT At Risk Footcare, Painful Nail(s) aggrevated by shoes and causing difficulty standing/walking Medications Medication SIG (Take, Route, Frequency, Duration) Notes Start Date End Date Status Levothyroxine Sodium 112 MCG 1 tablet in the morning on an empty stomach Orally Once a day for 30 day(s) Active Simvastatin 10 MG 1 tablet in the evening Orally Once a day for 30 day(s) Active Tradjenta 5 MG 1 tablet Orally Once a day Active Vitamin D 1 tablet Orally Once a day Active metFORMIN HCl 500 MG 1 tablet with a meal Orally four times a day Active Folic Acid 1 MG 1 tablet Orally Once a day for 30 day(s) Active Jardiance 25 MG 1 tablet Orally Once a day Active amLODIPine Besylate Active Diclofenac-miSOPROStol 75-0.2 MG 1 tablet with food Orally Twice a day Active Methotrexate Sodium 10 MG as directed Orally once a week Not-Taking Leflunomide Active Ciclopirox Olamine 0.77 % 1 application to affected area Externally to feet Twice a day for 30 days Not-Taking Leflunomide & Diclofenac Sod Not-Taking Terbinafine Not-Taki ng Lisinopril 10 MG 1 tablet Orally Once a day for 30 day(s) Not-Taking Xeljanz 5 MG 1 tablet Orally Twice a day for 30 day(s) Active Zolpidem Tartrate 10 MG 1 tablet at bedtime as needed Orally Once a day PRN Active Prednisone Temp last day 09/11/21 Not-Taking Social History Tobacco Use: Social History Observation [...] Are you an other tobacco user? No Vital Signs Height 5ft 2.5in in 01/30/2024 Weight 164 lbs 01/30/2024 BMI 29.51 kg/m2 01/30/2024 Blood pressure systolic 120 mm Hg 01/30/20 24 Blood pressure diastolic 70 mm Hg 024 Procedures Procedure Date Ordered Date Performed Result Body Sit e 71325-XSWXTST NAIL, 6 OR MORE 01/30/2024 N/A 57369-XNQY SKIN LESIONS, OVER 4 01/30/2024 N/A Encounters Encounter Location Date Provider Diagnosis [facility] [address] [address] 01/30/2024 Sergio Malik Type 2 diabetes mellitus with diabetic peripheral angiopathy without gangrene E11.51 ; Tinea unguium B35.1 ; Pain in right toe(s) M79.674 and Pain in left toe(s) M79.675 Assessments Encounter Date Diagnosis (ICD Code) Assessment Notes Treatment Notes Treatment Clinical Notes Section Notes 01/30/2024 Type 2 diabetes mellitus with diabetic peripheral angiopathy without gangrene (ICD-10 - E11.51) 01/30/2024 Tinea unguium (ICD-10 - B35.1) 01/30/2024 Pain in right toe(s) (ICD-10 - M79.674) 01/30/2024 Pain in left toe(s) (ICD-10 - M79.675) 01/30/2024 Other Plan Of Treatment Pending Test Test Name Order Date 93429-XASBBMM NAIL, 6 OR MORE 01/30/2024 10730-HVNE SKIN LESIONS, OVER 4 01/30/20 24 Next Appt Details Follow Up: prn, Reason: Provider Name:Sergio Malik , 04/02/2024 08:45:00 AM, [address] [place] [address], [phone], Provider Name:Sergio Malik , 06/11/2024 08:45:00 AM, [address] [place] [address], [phone], Procedure Notes * Category Sub-Category Detail Notes Debride Nail 6-10 Nail debridement Due to the cl inical pathology outlined in the exam findings, performance of this nail treatment is medically necessary as its management by an unskilled/untrained nonprofessional would put this patients foot and overall health at risk. Therefore, debridement to affected nail(s), as described in exam ( T2, T3, T4, T5, T6, T9), was performed exclusively by the physician of record to reduce/remove overall nail length, girth, thickness, subungual debris, and necrotic tissue, by manual and/or electrical means through the use of a nail nipper and/or dremel-type concrete grinder operator, to a more viable healthy nail plate or bed tissue 6-10 nails in total. Silver nitrate was used for any petechial bleeding as necessary. Definitive antifungal treatment options, both pharmaceutical and surgical, have been reviewed and discussed with the patient. The patient solely prefers the use of intermittent/as needed professional debridement services for their nail condition and understands the need for additional periodic treatments to maintain effectiveness in symptomatic relief - 09951 Keratoma Treatment Parring or Cutting o f Benign Hyperkeratotic Lesion(s) (-57) More than 4 Lesions - Due to the at risk nature of the patients medical condition as documented in the exam findings, performance of this keratoderma treatment is medically necessary as its management by an unskilled/untrained nonprofessional would put this patients foot and overall health at risk. Therefore, the benign hyperkeratotic lesions, ( 6) in total, locations as stated and described in the exam ( SUB MTH (s), 1, B/L , SUB MTH (s), 2, B/L , Plantar, Heel(s), B/L), were pared, and/or cut utilizing a sterile 15 blade, tissue nippers, and/or power dremel instrumentation by the physician of record - 83568, Q8 Progress Notes * Joanna TSE MDOB:1960 (63 yo F)Acc No.[id number]:01/30/2024 Progress Note Patient:?Joanna TSE Provider:?Sergio Malik DPM :1960???Age:63 Y???Sex:Female D ate:01/30/2024 Address:[address] [place], [place] [id number] Pcp:Barbara Victor Subjective: * Chief Complaints: * ???At Risk FootcarePainful N ail(s) aggrevated by shoes and causing difficulty standing/walking * HPI: ???At Risk footcare:?Pt States Last PCP Visit:?Date?01/07/2024 * ROS:?General/Constitutional:?Nausea?denies.?Vomiting?denies.?Hunger Thirst?denies.?Loss appetite?denies.?Chills?denies.?Fatigue?denies.?Fever?denies.?Night Sweats?denies.?Unexplained weight loss?denies.?Unexplained weight gain?denies.?HEENTM:?Dentures?admits.?Dizziness?denies.?Glasses/contacts?admits.?Retinopathy?den ies.?Blurred/double vision?denies.?TMJ?denies.?Discharge/drainage?denies.?Implants?denies.?Sore throat?denies.?Dental implants?denies.?Hard of hearing ?denies.?Difficulty chewing/swallowing/speaking?denies.?Nose bleeds?denies.?Sore mouth?denies.?Respiratory:?On O xygen?denies.?Pneumonia/pleurisy?denies.?Bronchitis?denies.?Emphysema?denies.?Co ughing?denies.?Cough blood?denies.?Shortness of breath?denies.?Wheezing?denies.?Cardiovascular:?Pacemaker?denies.?MVP?denies.?WPW?denies.?CHF?denies.?Heart attack?denies.?Septal defect?denies.?Rapid beat?denies.?Chest pain ?denies.?Atrial Fib.?denies.?Murmur/Palpitations?denies.?Gastrointestinal:?Hemorrhoids?denies.?Stomach/Abdominal pain?denies.?Dark blood stool?denies.?Irritable bowel ?denies.?Constipation?denies.?Diarrhea?denies.?Hematology:?Swelling?denies.?Clots?denies.?Varicose Veins?denies.?Bruising?denies.?Bleeding problem?denies.?Genitourinary:?Blood urine?denies.?Frequent/Painfu/urination/bladder control?denies.?Kidney stones?denies.?Infection (UTI)?denies.?Nephropathy?denies.?sex trans dis (STD)?denies.?Prostate?denies.?Musculoskeletal:?Hammertoes?admits.?Bunions?denies.?Back Pain?denies.?Muscle Cramps/ Resting?admits.?Muscle cramps / walking?denies.?Generalized aches and pains?admits.?Weakness?denies.?Integ.:?Osman?denies.?Scars?denies.?Corns/calluses?admits.?Ingrown nails?admits.?Painful nails?admits.?Open Sores?denies.?Rashes?denies.?Neurologic:?Difficulty sleeping?denies.?Brain disorder?denies.?Numbness?denies.?Balance t rouble?denies.?Confusion?denies.?Fainting/blackouts?denies.?Tingling?denies.?Kg mors?denies.? * Medical History:? * Surgical History:?Thyroid Vogt rgery 04/26,11/09/21Broken wrist 05/25bunion Surgery 2009C-Section 1985,1987Right quad rupture repair 24hysterectomy 06/09/2023 * Hospitalization/Major Diagno stic Procedure:?Denies Past Hospitalization * Family History:?Mother: dece ased, diagnosed with Family history of arthritis.?Father: .?Siblings: Sister, diagnosed with Diabetic - NIDDM, Family history of arthritis.? * Social History:?Tobacco Use:?Tobacco Use/Smoking?Are you a:?nonsmoker ?Additional Findings: Tobacco Non-User?Current non-smoker ?Tobacco use other than smoking?Are you an other tobacco user??No ???Drugs/Alcohol:?Drugs?Have you used drugs other than those for medical reasons in the past 12 months??No ?Alcohol Screen?Did you have a drink containing alcohol in the past year??No ?Points?0 ?Interpretation?Negative ???Miscellaneous:?Caffeine: yes, 1 cups per day. ?Children: yes, 2. ?Exercise: yes, walking. ?Marital status: . ?Occupation: [employer]. * Medications:?TakingLeflunomi de Jardiance 25 MG Tablet 1 tablet Orally Once a day amLODIPine Besylate Diclofenac-miSOPROStol 75-0.2 MG Tablet Delayed Release 1 tablet with food Orally Twice a day Folic Acid 1 MG Tablet 1 tablet Orally Once a day metFORMIN HCl 500 MG Tablet 1 tablet with a meal Orally four times a day Levothyroxine Sodium 112 MCG Tablet 1 tablet in the morning on an empty stomach Orally Once a day Simvastatin 10 MG Tablet 1 tablet in the evening Orally Once a day Tradjenta 5 MG Tablet 1 tablet Orally Once a day Vitamin D 1 tablet Orally Once a day Xeljanz 5 MG Tablet 1 tablet Orally Twice a day Zolpidem Tartrate 10 MG Tablet 1 tablet at bedtime as needed Orally Once a day , Notes to Pharmacist: PRNTaking Leflunomide Taking Jardiance 25 MG Tablet 1 tablet Orally Once a day Taking amLODIPine Besylate Taking Diclofenac-miSOPROStol 75-0.2 MG Tablet Delayed Release 1 tablet with food Orally Twice a day Taking Folic Acid 1 MG Tablet 1 tablet Orally Once a day Taking metFORMIN HCl 500 MG Tablet 1 tablet with a meal Orally four times a day Taking Levothyroxine Sodium 112 MCG Tablet 1 tablet in the morning on an empty stomach Orally Once a day Taking Simvastatin 10 MG Tablet 1 tablet in the evening Orally Once a day Taking Tradjenta 5 MG Tablet 1 tablet Orally Once a day Taking Vitamin D 1 tablet Orally Once a day Taking Xeljanz 5 MG Tablet 1 tablet Orally Twice a day Taking Zolpidem Tartrate 10 MG Tablet 1 tablet at bedtime as needed Orally Once a day , Notes to Pharmacist: PRNNot-Taking/PRNLeflunomide & Diclofenac Sod Methotrexate Sodium 10 MG Tablet as directed Orally once a week Prednisone , Notes to Pharmacist: Temp last day 09/11/21Ciclopirox Olamine 0.77 % Cream 1 application to affected area Externally to feet Twice a day Terbinafine Lisinopril 10 MG Tablet 1 tablet Orally Once a day Medication List reviewed and reconciled with the patientNot-Taking/PRN Leflunomide & Diclofenac Sod Not-Taking/PRN Methotrexate Sodium 10 MG Tablet as directed Orally once a week Not-Taking/PRN Prednisone , Notes to Pharmacist: Temp last day 09/11/21Not-Taking/PRN Ciclopirox Olamine 0.77 % Cream 1 application to affected area Externally to feet Twice a day Not-Taking/PRN Terbinafine Not-Taking/PRN Lisinopril 10 MG Tablet 1 tablet Orally Once a day Medication List reviewed and reconciled with the patient * Allergies:?Cipro: rashLevaqu in: rashyes[Allergies Verified] Objective: * Vitals:?Ht:5ft 2.5in, Wt:164 , BMI:29.51, Shoe size:6.5, BP:120/70mm Hg, BS:140, Ht-cm: 158.75 cm, Wt-k.39 kg. * ???Past Orders: ???Lab:HEMOGLOBIN A1C (GLYCO HEMOGLOBIN) (Order Date - 03/11/2023) (Collection Date & Time - 11/11/2022) ? Value Reference Range ?TOTAL HEMOGLOBIN (HGBA1C) 8.2 * Examination: ???Ophthalmology Referral: ?DIABETES EYE EXAM?Vascular: ?DP PULSES (B):? 1/4, B/L.?PT PULSES (B):? 0/4, B/L.?CAPILLARY FILL TIME:? delayed, all digits, B/L.?TROPHIC CONDITION-TEXTURE/ELASTICITY/TURGOR/HAIR GROWTH (B):? decreased, with sparse to absent hair growth, B/L.?TEMPERTURE GRADIENT (C):? decreased, cool to cool, proximal to distal, B/L.?PIGMENTATION:? rubrous, B/L.?EDEMA (C):? 1/, non-pitting, without aching pain, B/L, Ankle(s).?CLAUDICATION (C):?denies, B/L.?REST PAIN:?denies, B/L.?Nails: ?NAILS are:?Elongated, overgrown, dystrophic, lytic, greater than 3mm thick, discolored and friable with crumbly malodorous subungual debris, with pain on palpation, T2, T3, T4, T5, T6, T9, all other nails not described with characteristics as possessing mycosis are elongated, overgrown, and dystrophic.?Dermatologic: ?SKIN FINDINGS:?Skin exam reveals Keratotic lesion(s) located at, SUB MTH (s), 1, B/L , SUB MTH (s), 2, B/L , Plantar, Heel(s), B/L.?Orthopedic: ?MUSCLE STRENGTH:?5/5 all groups in a symmetrical fashion , B/L.?FOOT MORPHOLOGY:? No Charcot collapse/destruction noted at MTJ.?DIGITAL DEFORMITIES:?Digital contracture, PIPJ, 2-5 B/L, incompl-reducable to push-up test, no over, nor underlapping.?FOOTWEAR:?good condition.?Neurological: ?SENSORY:?Neurological exam reveals intact sensorium, pain sensation normal, vibration sensation intact, pinprick sensation is normal in the lower extremities, 5.07 monofilament test performed at plantar aspects of 5 varied sites per foot shows sensation, normal, B/L, Pt denies, anesthesia, burning, paresthesia, tingling, B/L.?General Examination: ?GENERAL APPEARANCE:?Reveals a pleasant, alert, well nourished, well developed, well hydrated individual, who demonstrates proper attention to hygene/body habitus, and is in no acute distress.?ORIENTED:?person, place, and time.?FOOT EXAM:?Footwear Evaluation? Assessment: * Assessment: 1.?Type 2 diabetes mellitus with diabetic peripheral angiopathy without gangrene - E11.51 (Primary)???2.?Tinea unguium - B35.1???3.?Pain in right toe(s) - M79.674???4.?Pain in left toe(s) - M79.675??? Plan: * Treatment: 2.?Tinea unguium?Procedure: 13026-HKAZNBX NAIL, 6 OR MORE * Procedures:?Debride Nail 6-10:?Nail debridement?Due to the clinical pathology outlined in the exam findings, performance of this nail treatment is medically necessary as its management by an unskilled/untrained nonprofessional would put this patients foot and overall health at risk. Therefore, debridement to affected nail(s), as described in exam (?T2,?T3,?T4,?T5,?T6,?T9), was performed exclusively by the physician of record to reduce/remove overall nail length, girth, thickness, subungual debris, and necrotic tissue, by manual and/or electrical means through the use of a nail nipper and/or dremel-type concrete grinder operator, to a more viable healthy nail plate or bed tissue 6-10 nails in total. Silver nitrate was used for any petechial bleeding as necessary. Definitive antifungal treatment options, both pharmaceutical and surgical, have been reviewed and discussed with the patient. The patient solely prefers the use of intermittent/as needed professional debridement services for their nail condition and understands the need for additional periodic treatments to maintain effectiveness in symptomatic relief - 33918.?Keratoma Treatment:?Parring or Cutting of Benign Hyperkeratotic Lesion(s)?(-57) More than 4 Lesions - Due to the at risk nature of the patients medical condition as documented in the exam findings, performance of this keratoderma treatment is medically necessary as its management by an unskilled/untrained nonprofessional would put this patients foot and overall health at risk. Therefore, the benign hyperkeratotic lesions, ( 6) in total, locations as stated and described in the exam (?SUB MTH (s),?1,?B/L?,?SUB MTH (s),?2,?B/L?,?Plantar,?Heel(s),?B/L), were pared, and/or cut utilizing a sterile 15 blade, tissue nippers, and/or power dremel instrumentation by the physician of record - 30558, Q8.? * Procedure Codes:?25082 DEBRI DE NAIL, 6 OR MORE, Modifiers: XS 22428 TRIM SKIN LESIONS, OVER 4, Modifiers: XS , Q8 * Follow Up:?prn * Images: * Sign off status: Completed true * Provider:?Sergio Malik DPM Date:?2023 Generated for Joao patterson/Erin/eTmacarenaitting on:?03/08/2024 05:23 PM EST History and Physical Notes * HPI (History of Present Illness) Category Sub-Category Detail Notes Category Not es At Risk footcare Pt States Last PCP Visit: Date: 4 Examination Category Sub-Category Detail Notes Category Not es Neurological SENSORY: Neurological exa m reveals intact sensorium, pain sensation normal, vibration sensation intact, pinprick sensation is normal in the lower extremities, 5.07 monofilament test performed at plantar aspects of 5 varied sites per foot shows sensation, normal, B/L, Pt denies, anesthesia, burning, paresthesia, tingling, B/L Dermatologic SKIN FINDINGS: Skin exam reveal s Keratotic lesion(s) located at, SUB MTH (s), 1, B/L , SUB MTH (s), 2, B/L , Plantar, Heel(s), B/L Orthopedic FOOT MORPHOLOGY: No Charcot romy apse/destruction noted at MTJ FOOTWEAR: good condition DIGITAL DEFORMITIES: Digital contracture , PIPJ, 2-5 B/L, incompl-reducable to push-up test, no over, nor underlapping MUSCLE STRENGTH: 5/5 all groups in a symmetrical fashion , B/L General Examination GENERAL APPEARANCE: Reveals a pleasant, alert, well nourished, well developed, well hydrated individual, who demonstrates proper attention to hygene/body habitus, and is in no acute distress FOOT EXAM: Lower Extremity Neurological Exa m performed:: Yes Visual exam of foot performed:: Yes Date: 01/30/2024 ORIENTED: person, place, and t piero Footwear Evaluation Footwear Evaluation performe d:: Yes Ophthalmology Referral DIABETES EYE EXAM Procedure Perform ed:: Yes ?Date of Exam Performed: 01/16/2024 Findings of Diabetic Eye Exam:: no retin opathy Vascular DP PULSES (B): 1/4, B/L PT PULSES (B): 0/4, B/L CAPILLARY FILL TIME: delayed, all digits , B/L TEMPERTURE GRADIENT (C): decreased, cool to cool, proximal to distal, B/L TROPHIC CONDITION-TEXTURE/ELASTICITY/TURGOR/HAIR GROWTH (B): decreased, with sparse to absent hair gr owth, B/L EDEMA (C): 1/4, non-pitting, wi thout aching pain, B/L, Ankle(s) CLAUDICATION (C): denies, B/L REST PAIN: denies, B/L PIGMENTATION: rubrous, B/L Nails NAILS are: Elongated, overg rown, dystrophic, lytic, greater than 3mm thick, discolored and friable with crumbly malodorous subungual debris, with pain on palpation, T2, T3, T4, T5, T6, T9, all other nails not described with characteristics as possessing mycosis are elongated, overgrown, and dystrophic
--- OUTSIDE RECORDS SUMMARY | 2024-03-08 17:24 | XMS_ITS ---
Author Organization [facility] [place] Address [address] [place] [address] Care Team Providers Care Screwhead Stoner And Polisher Name Role Phone Barbara Victor Primary Care Provider Sergio Montelongo Unavailable [phone] Allergies Allergen (clinical drug ingredient) Drug/Non Drug Allergy documented on EMR Reaction Allergy Type Onset Date Status ciprofloxacin Cipro rash Drug Allergy Act danielle Levaquin rash Drug Allergy Active REASON FOR VISIT At Risk Footcare, Painful Nail(s) aggrevated by shoes and causing difficulty standing/walking Medications Medication SIG (Take, Route, Frequency, Duration) Notes Start Date End Date Status Prednisone Temp last day 09/11/21 Not-Taking Ciclopirox Olamine 0.77 % 1 application to affected area Externally to feet Twice a day for 30 days Not-Taking Zolpidem Tartrate 10 MG 1 tablet at bedtime as needed Orally Once a day PRN Active Terbinafine Not-Taki ng Lisinopril 10 MG 1 tablet Orally Once a day for 30 day(s) Not-Taking Vitamin D 1 tablet Orally Once a day Active Xeljanz 5 MG 1 tablet Orally Twice a day for 30 day(s) Active Levothyroxine Sodium 112 MCG 1 tablet in the morning on an empty stomach Orally Once a day for 30 day(s) Active Simvastatin 10 MG 1 tablet in the evening Orally Once a day for 30 day(s) Active Tradjenta 5 MG 1 tablet Orally Once a day Active amLODIPine Besylate Active Diclofenac-miSOPROStol 75-0.2 MG 1 tablet with food Orally Twice a day Active metFORMIN HCl 500 MG 1 tablet with a meal Orally four times a day Active Folic Acid 1 MG 1 tablet Orally Once a day for 30 day(s) Active Methotrexate Sodium 10 MG as directed Orally once a week Active Social History Tobacco Use: Social History Observation [...] No Vital Signs Height 5ft 2.5in in 11/25/2023 Weight 164 lbs 11/25/2023 BMI 29.51 kg/m2 11/25/2023 Procedures Procedure Date Ordered Date Performed Result Body Sit e 26103-DRWMILR NAIL, 6 OR MORE 11/25/2023 N/A 11913-VULQ SKIN LESIONS, OVER 4 11/25/2023 N/A Encounters Encounter Location Date Provider Diagnosis [facility] [address] [address] 11/25/2023 Sergio Malik Type 2 diabetes mellitus with diabetic peripheral angiopathy without gangrene E11.51 ; Tinea unguium B35.1 ; Pain in right toe(s) M79.674 and Pain in left toe(s) M79.675 Assessments Encounter Date Diagnosis (ICD Code) Assessment Notes Treatment Notes Treatment Clinical Notes Section Notes 11/25/2023 Type 2 diabetes mellitus with diabetic peripheral angiopathy without gangrene (ICD-10 - E11.51) 11/25/2023 Tinea unguium (ICD-10 - B35.1) 11/25/2023 Pain in right toe(s) (ICD-10 - M79.674) 11/25/2023 Pain in left toe(s) (ICD-10 - M79.675) 11/25/2023 Other Plan Of Treatment Pending Test Test Name Order Date 88498-THJMTGJ NAIL, 6 OR MORE 11/25/2023 76382-MPMH SKIN LESIONS, OVER 4 11/25/19 24 Next Appt Details Follow Up: prn, Reason: Provider Name:Sergio Loounier , 04/02/2024 08:45:00 AM, [address] [place] [address], [phone], Provider Name:Sergio Malik , 06/11/2024 08:45:00 AM, [address] [place] [address], [phone], Procedure Notes * Category Sub-Category Detail Notes Debride Nail 6-10 Nail debridement Performance o f this nail treatment by a nonprofessional would put this patients foot and overall health at risk. Therefore, nail debridement was performed extensively to reduce/remove overall nail length, girth, thickness, subungual debris, and necrotic tissue, by manual and/or electrical means through the use of a nail nipper and/or dremel-type grinder operator automatic, to a more viable healthy nail plate or bed tissue 6-10. Silver nitrate used for any petechial bleeding as necessary. Definitive antifungal treatment options have been reviewed and discussed with the patient. The patient chooses, no pharmaceutical tx - 03199 Keratoma Treatment Parring or Cutting o f Benign Hyperkeratotic Lesion(s) (-57) More than 4 Lesions - The Benign hyperkeratotic lesions, as described above were pared, and/or cut utilizing a sterile 15 blade, tissue nippers, and/or dremel - 01384 , Q8 Progress Notes * Joanna TSE MDOB:1960 (63 yo F)Acc No.[id number]:11/25/2023 Progress Note Patient:?Joanna Tse Provider:?Sergio Malik DPM :1960???Age:63 Y???Sex:Female D ate:11/25/2023 Address:[address] [place], [place] [id number] Pcp:Barbara Victor Subjective: * Chief Complaints: * ???At Risk FootcarePainful N ail(s) aggrevated by shoes and causing difficulty standing/walking * HPI: ???At Risk footcare:?Pt States Last PCP Visit:?Date?07/08/2023 * ROS:?General/Constitutional:?Nausea?denies.?Vomiting?denies.?Hunger Thirst?denies.?Loss appetite?denies.?Chills?denies.?Fatigue?denies.?Fever?denies.?Night Sweats?denies.?Unexplained weight loss?denies.?Unexplained weight gain?denies.?HEENTM:?Dentures?admits.?Dizziness?denies.?Glasses/contacts?admits.?Retinopathy?de nies.?Blurred/double vision?denies.?TMJ?denies.?Discharge/drainage?denies.?Implants?denies.?Sore throat?denies.?Dental implants?denies.?Hard of hearing ?denies.?Difficulty chewing/swallowing/speaking?denies.?Nose bleeds?denies.?Sore mouth?denies.?Respiratory:?On Oxygen?denies.?Pneumonia/pleurisy?denies.?Bronchitis?denies.?Emphysema?denies.?C oughing?denies.?Cough blood?denies.?Shortness of breath?denies.?Wheezing?denies.?Cardiovascular:?Pacemaker?denies.?MVP?denies.?WPW?denies.?CHF?denies.?Heart attack?denies.?Septal defect?denies.?Rapid beat?denies.?Chest pain ?denies.?Atrial Fib.?denies.?Murmur/Palpitations?denies.?Gastrointestinal:?Hemorrhoids?denies.?Stomach/Abdominal pain?denies.?Dark blood stool?denies.?Irritable bowel ?denies.?Constipation?denies.?Diarrhea?denies.?Hematology:?Swelling?denies.?Clots?denies.?Varicose Veins?denies.?Bruising?denies.?Bleeding problem?denies.?Genitourinary:?Blood urine?denies.?Frequent/Painfu/urination/bladder control?denies.?Kidney stones?denies.?Infection (UTI)?denies.?Nephropathy?denies.?sex trans dis (STD)?denies.?Prostate?denies.?Musculoskeletal:?Hammertoes?admits.?Bunions?denies.?Back Pain?denies.?Muscle Cramps/ Resting?admits.?Muscle cramps / walking?denies.?Generalized aches and pains?admits.?Weakness?denies.?Integ.:?Osman?denies.?Scars?denies.?Corns/calluses?admits.?Ingrown nails?admits.?Painful nails?admits.?Open Sores?denies.?Rashes?denies.?Neurologic:?Difficulty sleeping?denies.?Brain disorder?denies.?Numbness?denies.?Balance trouble?denies.?Confusion?denies.?Fainting/blackouts?denies.?Tingling?denies.?Tr emors?denies.? * Medical History:? * Surgical History:?Thyroid Vogt rgery 04/26,11/09/21Broken wrist 05/25bunion Surgery 2009C-Section 1985,1987Right quad rupture repair 07/23/23ysterectomy 06/09/2023 * Hospitalization/Major Diagno stic Procedure:?Denies Past Hospitalization * Family History:?Mother: dece ased, diagnosed with Family history of arthritis.?Father: .?Siblings: Sister, diagnosed with Family history of arthritis, Diabetic - NIDDM.? * Social History:?Tobacco Use:?Tobacco Use/Smoking?Are you a:?nonsmoker [...] ?Exercise: yes, walking. ?Marital status: . ?Occupation: [employer]. * Medications:?TakingamLODIPin e Besylate Diclofenac-miSOPROStol 75-0.2 MG Tablet Delayed Release 1 tablet with food Orally Twice a dayFolic Acid 1 MG Tablet 1 tablet Orally Once a dayMethotrexate Sodium 10 MG Tablet as directed Orally once a weekmetFORMIN HCl 500 MG Tablet 1 tablet with a meal Orally four times a dayLevothyroxine Sodium 112 MCG Tablet 1 tablet in the morning on an empty stomach Orally Once a daySimvastatin 10 MG Tablet 1 tablet in the evening Orally Once a dayTradjenta 5 MG Tablet 1 tablet Orally Once a dayVitamin D 1 tablet Orally Once a dayXeljanz 5 MG Tablet 1 tablet Orally Twice a dayZolpidem Tartrate 10 MG Tablet 1 tablet at bedtime as needed Orally Once a day, Notes: PRNTaking amLODIPine Besylate Taking Diclofenac-miSOPROStol 75-0.2 MG Tablet Delayed Release 1 tablet with food Orally Twice a dayTaking Folic Acid 1 MG Tablet 1 tablet Orally Once a dayTaking Methotrexate Sodium 10 MG Tablet as directed Orally once a weekTaking metFORMIN HCl 500 MG Tablet 1 tablet with a meal Orally four times a dayTaking Levothyroxine Sodium 112 MCG Tablet 1 tablet in the morning on an empty stomach Orally Once a dayTaking Simvastatin 10 MG Tablet 1 tablet in the evening Orally Once a dayTaking Tradjenta 5 MG Tablet 1 tablet Orally Once a dayTaking Vitamin D 1 tablet Orally Once a dayTaking Xeljanz 5 MG Tablet 1 tablet Orally Twice a dayTaking Zolpidem Tartrate 10 MG Tablet 1 tablet at bedtime as needed Orally Once a day, Notes: PRNNot- Taking/PRNPrednisone , Notes: Temp last day 09/11/21Ciclopirox Olamine 0.77 % Cream 1 application to affected area Externally to feet Twice a dayTerbinafine Lisinopril 10 MG Tablet 1 tablet Orally Once a dayMedication List reviewed and reconciled with the patientNot-Taking/PRN Prednisone , Notes: Temp last day 09/11/21Not-Taking/PRN Ciclopirox Olamine 0.77 % Cream 1 application to affected area Externally to feet Twice a dayNot-Taking/PRN Terbinafine Not-Taking/PRN Lisinopril 10 MG Tablet 1 tablet Orally Once a dayMedication List reviewed and reconciled with the patient * Allergies:?Cipro: rashLevaqu in: rashyes[Allergies Verified] Objective: * Vitals:?Ht: 5ft 2.5in, Wt:16 4, BMI:29.51, Shoe size: 6.5, BS: 150, Ht-cm: 158.75 cm, Wt-k.39 kg. * ???Past Orders: ???Lab:HEMOGLOBIN A1C (GLYCO HEMOGLOBIN) (Order Date - 03/11/2023) (Collection Date - 11/11/2022) ? Value Reference Range ?TOTAL HEMOGLOBIN (HGBA1C) 8.2 * Examination: ???Vascular: ?DP PULSES(B):? 1/4, B/L.?PT PULSES(B):? 0/4, B/L.?CAPILLARY FILL TIME:? delayed, all digits, B/L.?TROPHIC CONDITION-TEXTURE/ELASTICITY/TURGOR/HAIR GROWTH(B):? decreased, with sparse to absent hair growth, B/L.?TEMPERTURE GRADIENT(C):? decreased, cool to cool, proximal to distal, B/L.?PIGMENTATION:? rubrous, B/L.?EDEMA(C):? 1/4, non-pitting, without aching pain, B/L, Ankle(s).?CLAUDICATION(C):?denies, B/L.?REST PAIN:?denies, B/L.?Nails: ?NAILS are:?Elongated, overgrown, dystrophic, lytic, greater than 3mm thick, discolored and friable with crumbly malodorous subungual debris, with pain on palpation, T2, T3, T4, T5, T6, T9.?Dermatologic: ?SKIN FINDINGS:?Skin exam reveals Keratotic lesion(s) located at, SUB MTH (s), 1, B/L , SUB MTH (s), 2, B/L , Heel(s), B/L.? Assessment: * Assessment: 1.?Type 2 diabetes mellitus with diabetic peripheral angiopathy without gangrene - E11.51 (Primary)?2.?Tinea unguium - B35.1?3.?Pain in right toe(s) - M79.674?4.?Pain in left toe(s) - M79.675? Plan: * Treatment: 2.?Tinea unguium?Procedure: 72291-EFGXDWR NAIL, 6 OR MORE * Procedures:?Debride Nail 6-10:?Nail debridement?Performance of this nail treatment by a nonprofessional would put this patients foot and overall health at risk. Therefore, nail debridement was performed extensively to reduce/remove overall nail length, girth, thickness, subungual debris, and necrotic tissue, by manual and/or electrical means through the use of a nail nipper and/or dremel-type grinder operator automatic, to a more viable healthy nail plate or bed tissue 6-10. Silver nitrate used for any petechial bleeding as necessary. Definitive antifungal treatment options have been reviewed and discussed with the patient. The patient chooses, no pharmaceutical tx - 52959.?Keratoma Treatment:?Parring or Cutting of Benign Hyperkeratotic Lesion(s)?(-57) More than 4 Lesions - The Benign hyperkeratotic lesions, as described above were pared, and/or cut utilizing a sterile 15 blade, tissue nippers, and/or dremel - 39585 , Q8.? * Procedure Codes:?68423 DEBRI DE NAIL, 6 OR MORE, Modifiers: XS 61877 TRIM SKIN LESIONS, OVER 4, Modifiers: XS , Q8 * Follow Up:?prn * Images: * Sign off status: Completed true * Provider:?Sergio Malik DPM Date:?2023 Generated for Joao patterson/Erin/Laxmi on:?03/08/2024 05:23 PM EST History and Physical Notes * HPI (History of Present Illness) Category Sub-Category Detail Notes Category Not es At Risk footcare Pt States Last PCP Visit: Date: Examination Category Sub-Category Detail Notes Category Not es Dermatologic SKIN FINDINGS: Skin exam reveal s Keratotic lesion(s) located at, SUB MTH (s), 1, B/L , SUB MTH (s), 2, B/L , Heel(s), B/L Vascular DP PULSES (B): 1/4, B/L PT [...] on palpation, T2, T3, T4, T5, T6, T9
== END 2024-03-08 13:32 | disposition home or self-care (01) ==
PROVIDERS: PCP Internal Medicine; Referring Provider Student in an Organized Health Care Education/Training Program; Visit Provider Physician Assistant
DX: M43.12 Spondylolisthesis, cervical region (principal)
CPT/HCPCS: 99204

== ENCOUNTER 2024-03-09 07:43 | Outpatient (REF) | payer OTHER, SELFPAY ==
--- OUTSIDE RECORDS SUMMARY | 2024-03-09 07:46 | XMS_ITS ---
Author Organization [facility] Nery mullen [facility] Address [address] [place] [address] Care Team Providers Care Social Welfare Research Worker Name Role Phone Barbara Victor Primary Care Provider Sergio Montelongo Unavailable [phone] Allergies Allergen (clinical drug ingredient) Drug/Non Drug [...] an other tobacco user? No Vital Signs Blood pressure systolic 120 mm Hg 01/30/20 24 Blood pressure diastolic 70 mm Hg 024 Height 5ft 2.5in in 01/30/2024 Weight 164 lbs 01/30/2024 BMI 29.51 kg/m2 01/30/2024 Procedures Procedure Date Ordered Date Performed Result Body Sit e 87179-BJSHHAB NAIL, 6 OR MORE 01/30/2024 N/A 62689-OZVY SKIN LESIONS, OVER 4 01/30/2024 N/A Encounters Encounter Location Date Provider Diagnosis [facility] [address] [address] 01/30/2024 Sergio Malik Type 2 diabetes mellitus [...] Treatment Pending Test Test Name Order Date 77854-KOQDRUZ NAIL, 6 OR MORE 01/30/2024 58293-TQTA SKIN LESIONS, OVER 4 01/30/20 24 Next Appt Details Follow Up: prn, Reason: Provider Name:Sergio Malik , 04/02/2024 08:45:00 AM, [address] [place] [address], [phone], Provider Name:Sergio Malik , 06/11/2024 08:45:00 AM, [address] [place] [address], [phone], Procedure Notes * Category Sub-Category Detail Notes [...] use of a nail nipper and/or dremel-type emery grinder, to a more viable healthy nail plate [...] to maintain effectiveness in symptomatic relief - 04428 Keratoma Treatment Parring or Cutting o f [...] instrumentation by the physician of record - 91024, Q8 Progress Notes * Joanna TSE MDOB:1960 (63 yo F)Acc No.[id number]:01/30/2024 Progress Note Patient:?Joanna TSE Provider:?Sergio Malik DPM :1960???Age:63 Y???Sex:Female D ate:01/30/2024 Address:[address] [place], [place] [id number] Pcp:Barbara Victor Subjective: * Chief Complaints: * [...] walking. ?Marital status: . ?Occupation: [employer]. * Medications:?TakingLeflunomi de Jardiance 25 MG Tablet [...] - M79.675??? Plan: * Treatment: 2.?Tinea unguium?Procedure: 24467-QVQAFUA NAIL, 6 OR MORE * Procedures:?Debride Nail [...] use of a nail nipper and/or dremel-type emery grinder, to a more viable healthy nail plate [...] to maintain effectiveness in symptomatic relief - 64757.?Keratoma Treatment:?Parring or Cutting of Benign Hyperkeratotic Lesion(s)?(-57) [...] instrumentation by the physician of record - 93526, Q8.? * Procedure Codes:?59255 DEBRI DE NAIL, 6 OR MORE, Modifiers: XS 00460 TRIM SKIN LESIONS, OVER 4, Modifiers: XS , Q8 * Follow Up:?prn * Images: * Sign off status: Completed true * Provider:?Sergio Malik DPM Date:?2023 Generated for Joao patterson/Erin/eTviolasmitting on:?03/09/2024 07:46 AM EST History and Physical Notes * HPI [...]
--- OUTSIDE RECORDS SUMMARY | 2024-03-09 07:46 | XMS_ITS | Encounter Summary ---
Author Organization [facility] Address [address] [place] [address] Care Team Providers Care Java Project Manager Name Role Phone Barbara Victor Primary Care Provider [phone] Encounter Details Date Type Department Care Team (Late st Contact Info) Description 07/02/2016 Orders Only [facility] [address] [address] 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 MD [address] [place] [address] Social History Tobacco Use Types Packs/Day Years [...] on filedocumented in this encounter Care Teams Java Project Manager Relationship Specialty Start Date End Date Barbara Victor [address] [place] [address] [place] [address] PCP - General Internal Medicine 06/24/17 documented as of this encounter
--- OUTSIDE RECORDS SUMMARY | 2024-03-09 07:46 | XMS_ITS | Clinical Summary ---
Author Organization [facility] Address [address] [place] [address] Care Team Providers Care Technology Infusion Specialist Name Role Phone ValenteBarbara Katelynn Primary Care Provider [phone] Allergies Active Allergy Reactions Criticality Noted Date [...] in February. Rheumatoid arthritis 10/16/2008 Overview (11/01/2016): account review specialist Dr. 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 Problems [...] complete this topic Procedures * Due to [facility] law, this organization might not be sharing negative HIV tests. Procedure Name Priority Date/Time Associated Diagnosis Comments MICROALBUMIN, RANDOM URINE WITH CREATININE Routine 01/24/2020 9:14 AM EST Stage 3b chronic kidney disease BASIC METABOLIC PANEL, OUTSIDE LAB Routine 08/30/2019 HEMOGLOBIN A1C Routine 05/28/2017 3:55 PM EDT Type 2 diabetes mellitus without complication, without long-term current use of insulin ([facility]) DIABETES EYE EXAM Routine 07/31/2016 9:16 AM EDT MAMMOGRAPHY Routine 05/15/2016 12:00 AM EDT PAP W/HPV, CONVERSION Routine 06/17/2014 10:55 AM EDT HEPATITIS C ANTIBODY W/REFLEX TO HCV RNA, QUANTITATIVE PCR Routine 03/03/2014 2:31 PM EST from Last 3 Months or Most Recently Relevant to Health Maintenance Results * Due to [facility] law, this organization might not be sharing negative HIV tests. * (ABNORMAL) Microalbumin/Creatinine Urine Ratio, Random (01/24/2020 9:14 AM EST) Microalbumin, Urine 5.0 mg/dL 01/24/2020 11:04 AM EST [facility] Creatinine, Urine 23 15 - 278 mg/dL 01/24/2020 11:04 AM EST [facility] Microalb/Creat Ratio, Random Urine 217.4(H) <30.0 mcg/mgCr 01/24/2020 11:04 AM EST [facility] Comment: Microalbumin Reference Range: Normal ? <30 mcg/mg Creatinine Microalbuminuria ? 30-300 mcg/mg Creatinine Clinical Albuminuria >300 mcg/mg Creatinine Reference: ADA Guideline. Diabetes Care. 2004;27 (suppl 1) Urine Voided urine specimen / Unknown Non-Blood Collection / Unknown 01/24/2020 9:14 AM EST 01/24/2020 10:30 AM EST us Meaghan Ziegler MD LAB URINE ORDERABLES Final Res ult [facility] [address] [place] [address] * (ABNORMAL) Basic Metabolic Panel, Outside Lab (08/30/2019) Potassium 4.9 Creatinine 1.45(H) mg/dL eGFR Non- 37(L) Blood Structure of peripheral vein / Unknown 08/30/2019 us Unknown Provider LAB BLOOD ORDERABLES Final R esult * (ABNORMAL) Hemoglobin A1c (05/28/2017 3:55 PM EDT) Hemoglobin A1C 7.6(H) <5.7 % of total Hgb 05/28/2017 10:49 PM EDT [facility] [employer] Comment: For someone without known diabetes, a [...] (MG/DL) 171 (calc) 05/28/2017 10:49 PM EDT [employer] [facility] eAG (MMOL/L) 9.5 (calc) 05/28/2017 10:49 PM EDT [employer] [facility] Blood specimen (specimen) Structure of peripheral vein / Unknown Venipuncture / Unknown 05/28/2017 3:55 PM EDT 05/28/2017 4:30 PM EDT N[facility]ative [facility] 05/28/2017 10:49 PM EDT [facility] Received Date:[id number] Jose Manuel Bell MD LAB BLOOD ORDERABLES Final Re sult Performing Organization Address City/[facility]/ZIP Co de Phone Number [facility] [address], [place] [address], [employer] [address], [place] [address], * DIABETES EYE EXAM (07/31/2016 9:16 AM EDT) Eye Exam 25Jul2016 [facility] MANUAL RESULTS 07/31/2016 9:16 AM EDT Benita Napier MD HEALTH MAINTENANCE Final Resul t Performing Organization Address [facility]/ZIP Co de Phone Number [facility] MANUAL RESULTS * MAMMOGRAPHY (05/15/2016 12:00 AM EDT) Mammogram Benign/ there are scattered areas of fibroglandular density . No significant change from prior study 2 OUTSIDE LABORATORY Anatomical Region Laterality Modality Other 05/15/2016 us Historical Conversion Provider HEALTH MAINTENANC E Final Result * Pap w/HPV (06/17/2014 10:55 AM EDT) Path Procedure TPGAS (610205) 1 ?? HPVHR(138067) 1 ?? Edited by: [id number] 1399 [id number] ?? [id number] [facility] Specimen Labeled As: 1 CERVICAL/ENDOCERVI MAKAYLA CYTO MATERIAL - Edited by: [id number] [facility] Additional Test Information Specimens were tested for high risk HPV using the FDA approved Digene Hybrid ?? Capture II kit, in the Diagnostic Molecular Oncology Lab at [facility] ?? Health Care. ??This test [...] abnormality. ??We endorse the recommendations of the [place] Society for ?? Colposcopy and Cervical Pathology [...] complexity clinical laboratory testing. ?? Edited by: [id number] - 6 BW-SCRPT6 [facility] Diagnosis ThinPrep Pap Test ? Adequacy: Satisfactory for evaluation ? Interpretation: Negative for Intraepithelial Lesion or Malignancy ? Remarks/Recommenda tions: ?? This is the result of a morphological screening test with an inherent ?? possibility of a false negative interpretation. ?? This Pap test was examined in accordance with the [facility] Cytopathology ?? Laboratory written policy, which incorporates all CLIA mandates. Screening ?? guidelines can be found in Am J Clin Pathol 2012;137:516-542. ??We endorse the ?? practice guidelines developed by ASCCP and published in the Journal Lower ?? Genital Tract Disease 17(5):S1-S27 (2013). ? This Pap test was examined by the ThinPrep Imaging System, [employer], [place], [place]. ?- High risk HPV DNA subtypes: NEGATIVE ?? Edited by: [id number] - 7294 -SCRPT6 ?? [id number] FERRSAEED [facility] Gynecologic Clinical Data Specimen source:, THINPREP (CERVICAL AND ENDOCERVICAL) [facility] Gynecologic Clinical Data Gynecologic findings:, POST MENOPAUSAL [facility] Pathology Codes Client Order Code:, TPHGS3 [facility] Pathology Codes Bill Type:, 3RD REPUBL[employer] BILLING [facility] Completed Report [id number] HPV, HIGH RISK TYPES 1 [facility] Marker 1 TOR GOMES [facility]OM[facility] PATHOLOG[facility] - [facility] Marker 2 MDNEG,MD NEGATIVE [facility] Marker 3 NILM,NILM [facility] PATHOLOG[facility] - [facility] Marker 4 RIM,RECEIVED IN MOLECULAR [facility]OLOG[facility] - [facility] Marker 5 CRISTY GHOSH-ANDI [facility] Cc Results To COMPA GODDARD K. CONTRACT PREPARER ??[id number] ?? JOHNNY SIU ??[id number] [facility] Signature REPORT SIGNED: TOR LAURA 06/29/14 [facility] Sign Out Audit TOR LAURA [id number] [place] [id number] [facility] Cytology / Unknown 10:55 AM EDT 06/20/2014 10:55 AM EDT Juliet Napier MD LAB HISTORICAL RESULT S Final Result [facility] [address] [place] [address], * Hepatitis C Antibody w/Reflex to HCV RNA, Quantitative PCR (03/03/2014 2:31 PM EST) Hepatitis C Antibody NON-REACTI VE NON-REACT CRISTINA [facility] Signal To Cut-Off 0.06 <1.00 [facility] 03/03/2014 2:31 PM EST 03/03/2014 3:50 PM EST Jessi Garcia LAB BLOOD ORDERABLES Final Resul t ENEIDA MCGARRY from Last 3 Months or Most Recently Relevant to Health Maintenance Insurance [employer] Advance Directives Documents on File Type Date Recorded Patient Class A Lineman Expl anation Advance Directive 09/12/2014 12:00 AM sf Me dical Dec Making (Adv.Dir) Care Teams Technology Infusion Specialist Relationship Specialty Start Date End Date Barbara Victor [address] [place] [address] dr Supa [place], [place] [address] PCP - General Internal Medicine 06/24/17
--- OUTSIDE RECORDS SUMMARY | 2024-03-09 07:46 | XMS_ITS | Encounter Summary ---
Author Organization [facility] Address [address] [place] [address] Care Team Providers Care Testing Machine Operator Name Role Phone Barbara Victor Primary Care Provider [phone] Encounter Details Date Type Department Care Team (Late st Contact Info) Description 09/24/2016 Orders Only [facility] [address] [address] 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 MD [address] [place] [address] Social History Tobacco Use Types Packs/Day Years [...] on filedocumented in this encounter Care Teams Testing Machine Operator Relationship Specialty Start Date End Date Barbara Victor [address] [place] [address] [place] [address] PCP - General Internal Medicine 06/24/17 documented as of this encounter
--- OUTSIDE RECORDS SUMMARY | 2024-03-09 07:46 | XMS_ITS | Encounter Summary ---
Author Organization [facility] Address [address] [place] [address] Care Team Providers Care Crushing Mill Operator Name Role Phone ValenteBarbara Katelynn Primary Care Provider [phone] Reason for Visit * Reason Onset Date Comments Med Refill 03/30/2021 Encounter Details Date Type Department Care Team (Late st Contact Info) Description 03/30/2021 Telephone [facility] [address] [place] [address] Telephone Intake, Staff Med Refill Social History [...] not request PCP information rather they requested [facility] endo contact info and did not give a reason why. Since endo does not prescribe the med, nurse requested that pt call [facility] to resolve issue. * Telephone Encounter - [...] Pt of Dr. Franklin Almonte calling from [employer] This is her second attempt at trying to get a renewal for pt (Onglyza 5mg) Please call or fax to: Please: use reference #[id number] documented in this encounter Plan of Treatment Not on file documented as of this encounter Visit Diagnoses Not on filedocumented in this encounter Care Teams Crushing Mill Operator Relationship Specialty Start Date End Date Barbara Victor [address] [place] [address] dr Supa [place]art, [place] [address] PCP - General Internal Medicine 06/24/17 documented as of this encounter
--- OUTSIDE RECORDS SUMMARY | 2024-03-09 07:46 | XMS_ITS | Encounter Summary ---
Author Organization [facility] Address [address] [place] [address] Care Team Providers Care Animal Tech Name Role Phone Barbara Victor Primary Care Provider [phone] Encounter Details Date Type Department Care Team (Late st Contact Info) Description 03/25/2016 Orders Only [facility] [address] [address] 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 MD [address] [place] [address] Social History Tobacco Use Types Packs/Day Years [...] on filedocumented in this encounter Care Teams Animal Tech Relationship Specialty Start Date End Date Barbara Victor [address] [place] [address] [place] [address] PCP - General Internal Medicine 06/24/17 documented as of this encounter
--- OUTSIDE RECORDS SUMMARY | 2024-03-09 07:46 | XMS_ITS ---
Author Organization [facility] Address [address] [place] [address] Care Team Providers Care Annual Giving Director Name Role Phone Barbara Victor Primary Care Provider Sergio Montelongo Unavailable [phone] Allergies Allergen (clinical drug ingredient) Drug/Non Drug [...] Ordered Date Performed Result Body Sit e 98410-NKVHLKP NAIL, 6 OR MORE 11/25/2023 N/A 54089-POJH SKIN LESIONS, OVER 4 11/25/2023 N/A Encounters Encounter Location Date Provider Diagnosis [facility] [address] [address] 11/25/2023 Sergio Malik Type 2 diabetes mellitus [...] Treatment Pending Test Test Name Order Date 50196-RCAZEVN NAIL, 6 OR MORE 11/25/2023 98886-OPEI SKIN LESIONS, OVER 4 11/25/19 24 Next Appt Details Follow Up: prn, Reason: Provider Name:Sergio Loounier , 04/02/2024 08:45:00 AM, [address] [place] [address], [phone], Provider Name:Sergio Malik , 06/11/2024 08:45:00 AM, [address] [place] [address], [phone], Procedure Notes * Category Sub-Category Detail [...] of a nail nipper and/or dremel-type grinder set up operator external, to a more viable healthy nail plate or bed tissue 6-10. Silver nitrate used for any petechial bleeding as necessary. Definitive antifungal treatment options have been reviewed and discussed with the patient. The patient chooses, no pharmaceutical tx - 99278 Keratoma Treatment Parring or Cutting o f Benign Hyperkeratotic Lesion(s) (-57) More than 4 Lesions - The Benign hyperkeratotic lesions, as described above were pared, and/or cut utilizing a sterile 15 blade, tissue nippers, and/or dremel - 86135 , Q8 Progress Notes * Joanna TSE MDOB:1960 (63 yo F)Acc No.[id number]:11/25/2023 Progress Note Patient:?Joanna Tse Provider:?Sergio Malik DPM :1960???Age:63 Y???Sex:Female D ate:11/25/2023 Address:[address] [place], [place] [id number] Pcp:Barbara Victor Subjective: * Chief Complaints: * [...] ?Exercise: yes, walking. ?Marital status: . ?Occupation: [employer]. * Medications:?TakingamLODIPin e Besylate Diclofenac-miSOPROStol 75-0.2 MG [...] - M79.675? Plan: * Treatment: 2.?Tinea unguium?Procedure: 20555-ZFPSEYW NAIL, 6 OR MORE * Procedures:?Debride Nail 6-10:?Nail debridement?Performance of this nail treatment by a nonprofessional would put this patients foot and overall health at risk. Therefore, nail debridement was performed extensively to reduce/remove overall nail length, girth, thickness, subungual debris, and necrotic tissue, by manual and/or electrical means through the use of a nail nipper and/or dremel-type grinder set up operator external, to a more viable healthy nail plate or bed tissue 6-10. Silver nitrate used for any petechial bleeding as necessary. Definitive antifungal treatment options have been reviewed and discussed with the patient. The patient chooses, no pharmaceutical tx - 77384.?Keratoma Treatment:?Parring or Cutting of Benign Hyperkeratotic Lesion(s)?(-57) More than 4 Lesions - The Benign hyperkeratotic lesions, as described above were pared, and/or cut utilizing a sterile 15 blade, tissue nippers, and/or dremel - 89567 , Q8.? * Procedure Codes:?88443 DEBRI DE NAIL, 6 OR MORE, Modifiers: XS 73910 TRIM SKIN LESIONS, OVER 4, Modifiers: XS , Q8 * Follow Up:?prn * Images: * Sign off status: Completed true * Provider:?Sergio Malik DPM Date:?2023 Generated for Joao patterson/Erin/Laxmi on:?03/09/2024 07:46 AM EST History and Physical [...]
--- OUTSIDE RECORDS SUMMARY | 2024-03-09 07:46 | XMS_ITS ---
Author [facility] Address [address] [place] [address] Care Team Providers Care Furrier Apprentice Name Role Phone Barbara Victor Primary Care Provider Sergio Montelongo Unavailable [phone] REASON FOR VISIT [place] Encounters Encounter Location Date Provider Diagnosis [address] [address] 11/25/2023 Sergio Malik Plan Of Treatment Next Appt Details Provider Name:Sergio Malik , 04/02/2024 08:45:00 AM, [address] [place] [address], [phone], Provider Name:Sergio Malik , 06/11/2024 08:45:00 AM, [address] [place] [address], [phone], Progress Notes * Joanna TSE MDOB:1960 (63 yo F)Acc No.[id number]:11/25/2023 Patient:?Joanna Tse :1960???Age:63 Y???Sex:Female [address] , [place], [address] * true * Date:? Generated for Printi ng/Famaryanng/eTransmitting on:?03/09/2024 07:45 AM EST
--- OUTSIDE RECORDS SUMMARY | 2024-03-09 07:46 | XMS_ITS | Referral Summary ---
Author Organization [facility] Address [address] [place] [address] Care Team Providers Care Family Practice Physician Name Role Phone ValenteBarbara Katelynn Primary Care Provider [phone] Allergies Active Allergy Reactions Criticality Noted Date [...] in February. 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 Problems [...] Not on file Procedures * Due to [place] state law, this organization might not be sharing negative HIV tests. Procedure Name Priority Date/Time Associated Diagnosis Comments MICROALBUMIN, RANDOM URINE WITH CREATININE Routine 01/24/2020 9:14 AM EST Stage 3b chronic kidney disease BASIC METABOLIC PANEL, OUTSIDE LAB Routine 08/30/2019 HEMOGLOBIN A1C Routine 05/28/2017 3:55 PM EDT Type 2 diabetes mellitus without complication, without long-term current use of insulin ([facility]) DIABETES EYE EXAM Routine 07/31/2016 9:16 AM EDT MAMMOGRAPHY Routine 05/15/2016 12:00 AM EDT PAP W/HPV, CONVERSION Routine 06/17/2014 10:55 AM EDT HEPATITIS C ANTIBODY W/REFLEX TO HCV RNA, QUANTITATIVE PCR Routine 03/03/2014 2:31 PM EST from Last 3 Months or Most Recently Relevant to Health Maintenance Results * Due to [place] [employer] law, this organization might not be sharing negative HIV tests. * (ABNORMAL) Microalbumin/Creatinine Urine Ratio, Random (01/24/2020 9:14 AM EST) Microalbumin, Urine 5.0 mg/dL 01/24/2020 11:04 AM EST [facility] Creatinine, Urine 23 15 - 278 mg/dL 01/24/2020 11:04 AM EST [facility] Microalb/Creat Ratio, Random Urine 217.4(H) <30.0 mcg/mgCr 01/24/2020 11:04 AM EST [facility] Comment: Microalbumin Reference Range: Normal ? <30 mcg/mg Creatinine Microalbuminuria ? 30-300 mcg/mg Creatinine Clinical Albuminuria >300 mcg/mg Creatinine Reference: ADA Guideline. Diabetes Care. 2004;27 (suppl 1) Urine Voided urine specimen / Unknown Non-Blood Collection / Unknown 01/24/2020 9:14 AM EST 01/24/2020 10:30 AM EST us Meaghan Ziegler MD LAB URINE ORDERABLES Final Res ult [facility] [address] [place] [address], [place] * (ABNORMAL) Basic Metabolic Panel, Outside Lab (08/30/2019) Potassium 4.9 Creatinine 1.45(H) mg/dL eGFR Non- 37(L) Blood Structure of peripheral vein / Unknown 08/30/2019 us Unknown Provider LAB BLOOD ORDERABLES Final R esult * (ABNORMAL) Hemoglobin A1c (05/28/2017 3:55 PM EDT) Hemoglobin A1C 7.6(H) <5.7 % of total Hgb 05/28/2017 10:49 PM EDT [facility] Comment: For someone without known diabetes, a [...] (MG/DL) 171 (calc) 05/28/2017 10:49 PM EDT [facility] eAG (MMOL/L) 9.5 (calc) 05/28/2017 10:49 PM EDT [facility] Blood specimen (specimen) Structure of peripheral vein / Unknown Venipuncture / Unknown 05/28/2017 3:55 PM EDT 05/28/2017 4:30 PM EDT Narrative [facility] - 05/28/2017 10:49 PM EDT [facility] Received Date:[id number] Jose Manuel Bell MD LAB BLOOD ORDERABLES Final Re sult [facility] [address] [facility] [address]rd [address], [place] [address], [place] [phone] [facility] [address] [facility] [address], [place] [address], [place] [phone] * DIABETES EYE EXAM (07/31/2016 9:16 AM EDT) Eye Exam 25Jul2016 [facility] MANUAL RESULTS 07/31/2016 9:16 AM EDT Benita Napier MD HEALTH MAINTENANCE Final Resul t [facility] MANUAL RESULTS * MAMMOGRAPHY (05/15/2016 12:00 AM EDT) Mammogram Benign/ there are scattered areas of fibroglandular density . No significant change from prior study 2 OUTSIDE LABORATORY Anatomical Region Laterality Modality Other 05/15/2016 Historical Conversion Provider HEALTH MAINTENANC E Final Result * Pap w/HPV (06/17/2014 10:55 AM EDT) Path Procedure TPGAS ([id number]) 1 ?? HPVHR(096868) 1 ?? Edited by: [id number] JOI ?? [id number] - 1324 -SCRPT6 [facility] Specimen Labeled As: 1 CERVICAL/ENDOCERVI MAKAYLA CYTO MATERIAL - Edited by: [id number] [facility] Additional Test Information Specimens were tested for high risk HPV using the FDA approved Digene Hybrid ?? Capture II kit, in the Diagnostic Molecular Oncology Lab at [facility] ?? Health Care. ??This test can [...] abnormality. ??We endorse the recommendations of the [place] Society for ?? Colposcopy and Cervical Pathology [...] complexity clinical laboratory testing. ?? Edited by: [id number] - 1324 -SCRPT6 [facility] Diagnosis ThinPrep Pap Test ? Adequacy: Satisfactory for evaluation ? Interpretation: Negative for Intraepithelial Lesion or Malignancy ? Remarks/Recommenda tions: ?? This is the result of a morphological screening test with an inherent ?? possibility of a false negative interpretation. ?? This Pap test was examined in accordance with the [facility] Cytopathology ?? Laboratory written policy, which incorporates all CLIA mandates. Screening ?? guidelines can be found in Am J Clin Pathol 2012;137:516-542. ??We endorse the ?? practice guidelines developed by ASCCP and published in the Journal Lower ?? Genital Tract Disease 17(5):S1-S27 (2012). ? This Pap test was examined by the ThinPrep Imaging System, [employer], [place], [place]. ?- High risk HPV DNA subtypes: NEGATIVE ?? Edited by: [id number] - 4324 -SCRPT6 ?? [id number] - [id number] FERRAROLaurie [facility] Gynecologic Clinical Data Specimen source:, THINPREP (CERVICAL AND ENDOCERVICAL) [facility] Gynecologic Clinical Data Gynecologic findings:, POST MENOPAUSAL [facility] Pathology Codes Client Order Code:, TPHGS3 [facility] Pathology Codes Bill Type:, 3RD REPUBLICAN BILLING [facility] Completed Report [id number] HPV, HIGH RISK TYPES 1 [facility] Marker 1 TOR GMOES [facility] ANATOM[facility]OLOG[facility] - [facility] Marker 2 MD SHLOMO NEGATIVE [facility] ANATOMIC PATHOLOGY - [facility] Marker 3 NILM,NILM [facility] PATHOLOG[facility] - [facility] Marker 4 RIM,RECEIVED IN MOLECULAR [facility]ATOM[facility] PATHOLOGY - [facility] Marker 5 CRISTY GHOSH-ANDI [facility] ANATOMIC PATHOLOGY - [facility] Cc Results To COMPA Bishop RESEARCH SCHOLAR ??[id number] ?? JOHNNY SIU ??[id number] [facility] Signature REPORT SIGNED: TOR LAURA 06/29/14 [facility] Sign Out Audit TOR LAURA [id number] [place]AL [place]aur[place] [id number] [facility] Cytology / Unknown 10:55 AM EDT 06/20/2014 10:55 AM EDT us Juliet Napier MD LAB HISTORICAL RESULT S Final Result [facility] [address] [place] [address], [place] * Hepatitis C Antibody w/Reflex to HCV RNA, Quantitative PCR (03/03/2014 2:31 PM EST) Hepatitis C Antibody NON-REACTI VE NON-REACT CRISTINA [place] [place] Signal To Cut-Off 0.06 <1.00 [facility] 03/03/2014 2:31 PM EST 03/03/2014 3:50 PM EST [facility] LAB BLOOD ORDERABLES Final Resul t ENEIDA MCGARRY from Last 3 Months or Most Recently Relevant to Health Maintenance Insurance [employer] [place] Directives Documents on File Type Date Recorded 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
--- OUTSIDE RECORDS SUMMARY | 2024-03-09 07:46 | XMS_ITS | Clinical Summary ---
Author Organization [facility] Address [address] [id number] Care Team Providers Care Coal Handling Supervisor Name Role Phone Anderson Sanchez Primary Care Provider [phone] Allergies No known active allergies Medications Diclofenac-Mis [...] complete this topic Zoster (Zostavax) Discontinued Insurance [facility] FEE FOR SERVICE PPO * Guarantor: [employer] Account Type Relation to Patient Date of Phone Billing Address [facility] [address] [place] [address] [employer] ACCESS Care Teams Coal Handling Supervisor Relationship Specialty Start Date End Date Anderson Sanchez [address] [address] PCP - General Rheumatology 06/10/12
--- OUTSIDE RECORDS SUMMARY | 2024-03-09 07:46 | XMS_ITS | Patient Health Record ---
Author Organization [facility] Address [address] [place] [address] Care Team Providers Care Lode Miner Blasting Name Role Phone Barbara Victor Primary Care Provider Sergio Montelongo Unavailable [phone] Allergies Allergen (clinical drug ingredient) Drug/Non Drug [...] Type 2 diabetes mellitus with peripheral angiopathy ([id number]) Type 2 diabetes mellitus with diabetic peripheral angiopathy without gangrene (E11.51) Active confirmed Vital Signs Blood pressure diastolic 70 mm Hg 01/30/2024 Height 5ft 2.5in in 01/30/2024 Blood pressure systolic 120 mm Hg 01/30/2024 Weight 164 lbs 01/30/2024 BMI 29.51 kg/m2 01/30/2024 Procedures Procedure Date Ordered Date Performed Result Body Sit e 93900-DBHZDAV NAIL, 6 OR MORE 03/11/2023 N/A 52856-OYKV SKIN LESIONS, OVER 4 03/11/2023 N/A 60675-SJQIXED NAIL, 6 OR MORE 05/13/2023 N/A 51513-EMRA SKIN LESIONS, OVER 4 05/13/2023 N/A 94320-IETMECA NAIL, 6 OR MORE 07/15/2023 N/A 92923-KIZP SKIN LESIONS, OVER 4 07/15/2023 N/A 53980-UXJAQOJ NAIL, 6 OR MORE 09/23/2023 N/A 23138-VGZP SKIN LESIONS, OVER 4 09/23/2023 N/A 24642-QYSVVFZ NAIL, 6 OR MORE 11/25/2023 N/A 58955-GMYS SKIN LESIONS, OVER 4 11/25/2023 N/A 97887-KUKOELT NAIL, 6 OR MORE 01/30/2024 N/A 13926-LXAM SKIN LESIONS, OVER 4 01/30/2024 N/A Encounters Encounter Location Date Provider Diagnosis [address] [address] 03/11/2023 [place] Type 2 diabetes mellitus with diabetic peripheral angiopathy without gangrene E11.51 ; Tinea unguium B35.1 ; Pain in right toe(s) M79.674 and Pain in left toe(s) M79.[address] [address] 05/13/2023 Sergio [place] Type 2 diabetes mellitus with diabetic peripheral angiopathy without gangrene E11.51 ; Tinea unguium B35.1 ; Pain in right toe(s) M79.674 and Pain in left toe(s) M79.[address] [address] 07/15/2023 [place]achi [place] Type 2 diabetes mellitus with diabetic peripheral angiopathy without gangrene E11.51 ; Tinea unguium B35.1 ; Pain in right toe(s) M79.674 and Pain in left toe(s) M79.[address] [address] 09/23/2023 Sergio [place] Type 2 diabetes mellitus with diabetic peripheral angiopathy without gangrene E11.51 ; Tinea unguium B35.1 ; Pain in right toe(s) M79.674 and Pain in left toe(s) M79.[address] [address] 11/25/2023 Sergio [place] Type 2 diabetes mellitus with diabetic peripheral angiopathy without gangrene E11.51 ; Tinea unguium B35.1 ; Pain in right toe(s) M79.674 and Pain in left toe(s) M79.[address] [facility] [address] 01/30/2024 Sergio Malik Type 2 diabetes mellitus with diabetic peripheral angiopathy without gangrene E11.51 ; Tinea unguium B35.1 ; Pain in right toe(s) M79.674 and Pain in left toe(s) M79.[address] [address] 11/25/2023 Sergio Malik Assessments Encounter Date Diagnosis [...] Treatment Pending Test Test Name Order Date 25745-RQRQNZB NAIL, 6 OR MORE 12/10/2019 80757-PLDDVAR NAIL, 6 OR MORE 02/29/2020 69685-ZYKRNFR NAIL, 6 OR MORE 05/30/2020 70426-AVUBJGO NAIL, 6 OR MORE 08/29/2020 31635-HVCFAUS NAIL, 6 OR MORE 11/28/2020 56795-JKKXUUC NAIL, 6 OR MORE 03/06/2021 30725-HHFRSVB NAIL, 6 OR MORE 06/08/2021 81676-PQJZSSI NAIL, 6 OR MORE 09/11/2021 44331-XELLJJH NAIL, 6 OR MORE 12/11/2021 17584-WGARTRQ NAIL, 6 OR MORE 02/15/2022 10988-UGFVDHS NAIL, 6 OR MORE 05/28/2022 20053-XVMCEHU NAIL, 6 OR MORE 08/16/2022 36937-KLPYEHL NAIL, 6 OR MORE 11/05/2022 81600-RCCYWQE NAIL, 6 OR MORE 01/07/2023 06563-NAVYJHH NAIL, 6 OR MORE 03/11/2023 68493-NWJXFGZ NAIL, 6 OR MORE 05/13/2023 50839-AAOCZGD NAIL, 6 OR MORE 07/15/2023 82467-SDLBHEQ NAIL, 6 OR MORE 09/23/2023 36082-ILRWRDW NAIL, 6 OR MORE 11/25/2023 51086-TEJSYRF NAIL, 6 OR MORE 01/30/2024 61409-HXTL SKIN LESIONS, OVER 4 01/30/20 05849-ZTYM SKIN LESIONS, OVER 4 11/25/19 50592-UNPH SKIN LESIONS, OVER 4 09/23/19 04405-KMQQ SKIN LESIONS, OVER 4 07/15/19 53436-NNXQ SKIN LESIONS, OVER 4 05/13/19 24 15663-ABEO SKIN LESIONS, OVER 4 03/11/19 24 03279-OAUF SKIN LESIONS, OVER 4 01/08/20 23 77512-WDIN SKIN LESIONS, OVER 4 11/06/19 23 93800-JLQF SKIN LESIONS, OVER 4 08/17/19 23 35140-FYRR SKIN LESIONS, OVER 4 05/29/19 23 54597-DJSF SKIN LESIONS, OVER 4 02/15/19 23 14755-OGES SKIN LESIONS, OVER 4 12/12/19 53176-MCAT SKIN LESIONS, OVER 4 09/12/19 22 98463-UDJH SKIN LESIONS, OVER 4 06/09/19 45583-MZMA SKIN LESIONS, OVER 4 03/06/19 46433-UIUS SKIN LESIONS, OVER 4 11/29/19 21 10164-WFOF SKIN LESIONS, OVER 4 08/30/19 21 21822-EYRG SKIN LESIONS, OVER 4 05/31/19 21 25288-YGKT SKIN LESIONS, OVER 4 02/28/19 41745-RUZV SKIN LESIONS, OVER 4 12/10/19 Next Appt Details Provider Name:Sergio Malik , 04/02/2024 08:45:00 AM, [address] [place] [address], [address], Provider Name:Sergio Malik , 06/11/2024 08:45:00 AM, [address] [facility], [place], [address], Insurance Providers Payer Name Payer Address Payer Phone Subscriber Number Group Number Insured Name Patient Relationship to Insured Coverage Start Date Coverage End Date [employer] Benefits [address] [address] [place] [address] [id number] Joanna Tse Self - patient is the insured Medical (General) History Medical History History ICD Code Rheumatoid Arthritis Cancer - Thyroid High blood pressure Rheumatic fever Chicken pox Bone implants/screws CAD type II diabetes Surgical History Surgery Date(Month/Year) Thyroid Surgery 04/26,11/09/21 Broken wrist 05/25 bunion Surgery 2008 1984,1986 Right quad rupture repair 07/23/23 hysterectomy 06/09/2023
[2024-03-09 08:04] LABS: MANUAL DIFF FLAG NO
[2024-03-09 08:24] LABS: Basophils Percent Auto 0.6 % (0-2); Eosinophils Absolute Auto 0.2 X10*3/uL (0.0-0.4); Eosinophils Percent Auto 3.5 % (0-4); Hematocrit 44.5 % (37.0-47.0); Hemoglobin 15.1 g/dl (12.0-16.0); Imm Gran Abs Auto 0.01 X10*3/uL (0.00-0.03); Imm Gran Pct Auto 0.2 % (0.0-0.4); Lymphocytes Absolute Auto 0.7 X10*3/uL (1.2-4.9); Lymphocytes Percent Auto 13.4 % (20-40); Mean Corpuscular HGB Conc 33.9 g/dl (31.0-35.0); Mean Corpuscular Hemoglobin 31.3 pg (27.0-33.0); Mean Corpuscular Volume 92.1 fL (80.0-98.0); Mean Platelet Volume 9.5 fL (9.4-12.3); Monocytes Absolute Auto 0.4 X10*3/uL (0.1-1.2); Monocytes Percent Auto 8.3 % (2-11); Neutrophils Absolute Auto 3.8 x10*3/uL (2.0-8.3); Platelet Count 179 X10*3/uL (160-400); Red Blood Count 4.83 X10*6/uL (4.20-5.50); Red Cell Distribution Width 12.3 % (11.0-16.0); White Blood Count 5.1 X10*3/uL (4.8-10.8)
[2024-03-09 09:02] LABS: Erythrocyte Sedimentation Rate 9 MM/HR (0-20)
[2024-03-09 09:06] LABS: Alanine Aminotransferase 16 U/L (0-31); Albumin Level 3.9 g/dL (3.5-5.0); Alkaline Phosphatase 91 U/L (39-117); Anion Gap 10 (12-20); Aspartate Amino Transferase 16 U/L (5-31); Bilirubin Total 0.4 mg/dL (0.0-1.0); Blood Urea Nitrogen 29 mg/dL (9-16); C Reactive Protein 0.66 mg/dL (< or = 0.50); Calcium 8.5 mg/dL (8.4-10.2); Carbon Dioxide 23 mmol/L (22-29); Chloride 109 mmol/L (96-108); Estimated Glomerular Filt Rate 36; Glucose Random 357 mg/dL (60-115); Potassium 4.7 mmol/L (3.3-5.1); Sodium 137 mmol/L (135-145); Total Protein 6.9 g/dL (6.5-8.0)
== END 2024-03-09 07:44 | disposition home or self-care (01) ==
LOC: HO.LAB 07:43
PROVIDERS: PCP Internal Medicine; Visit Provider Student in an Organized Health Care Education/Training Program
DX: M05.79 Rheumatoid arthritis with rheumatoid factor of multiple sites without organ or systems involvement (principal); Z79.631 Long term (current) use of antimetabolite agent; Z79.899 Other long term (current) drug therapy
CPT/HCPCS: 36415; 80053; 85025; 85652; 86140

== ENCOUNTER 2024-03-16 12:26 | Outpatient (AMB) | payer OTHER, SELFPAY ==
[2024-03-16 12:37] VITALS: BP 124/62; PULSE 79; O2SAT 97
--- NOTE | 2024-03-16 12:37 | A.OFFPC_ITS ---
Vital Signs 03/16/24 12:37 Height 5 ft 2.5 in BMI Reason not done Patient refused/unable BP 124/62 Blood Pressure Location Lt brachial Position Sitting Pulse 79 Pulse Source Pulse Oximeter Pulse Oximetry (%) 97 Oxygen Delivery Method Room Air Intake Visit Reasons: DM Allergies ciprofloxacin [Cipro] Allergy (Unknown, Verified 03/16/24 12:38) rash amlodipine Adverse Reaction (Intermediate, Verified 03/16/24 12:38) swelling Tobacco use date assessed: 03/16/24 Fall risk assessment: No Falls in past year Last assessed Fall Risk: 03/16/24 Dental Screening Dental Screen Date: 03/19/23 HPI DM HPI Details The patient is a 63-year-old female presenting with multiple chronic medical conditions for follow-up. She has a history of diabetes mellitus, managed with Januvia, Metformin, Glimepiride, and Jardiance, which was increased to 25 mg daily to manage her glucose levels. Her recent hemoglobin A1c improved to 7.2. The patient also has hypertension managed with Lisinopril and hypercholesterolemia treated with Simvastatin, with her last cholesterol measurement at 64. She reports chronic kidney disease stage 3 and follows up regularly with nephrology since December. An ultrasound in November 2023 showed no abdominal masses, but a benign, non-pathological enlarged lymph node was noted in the right cervical area. Her creatinine level is 1.46, and she keeps adequately hydrated. For rheumatoid arthritis, she was previously on Methotrexate, but it was discontinued due to concerns over kidney function. She was instead started on Leflunomide but reports increased stiffness, particularly in her knees, upon waking. She continues conservative treatment for cervical spine spondylosis with C3-C4 instability, identified through a previous MRI noting severe discogenic degenerative changes. The patient is also monitored for postoperative hypothyroidism, taking Levothyroxine 112 mcg daily. Her thyroid function tests showed a TSH of 0.09 as of November 2023. Bone density testing in December 2023 revealed osteopenia. Additionally, the patient suspects an abdominal hernia following a recent stomach bug episode, which she notes has enlarged over several months. She reports discomfort without severe pain or function impairment and is contemplating surgical consultation. [facility] Medical History (Updated 03/16/24 @ 13:11 by Barbara Victor MD) Anterolisthesis of cervical spine Long-term use of leflunomide therapy Methotrexate, supervisor intermediates, current use History of radioactive iodine thyroid ablation History of hyperparathyroidism Postoperative hypothyroidism Vitamin D deficiency Thyroid cancer Type 2 diabetes mellitus with hyperglycemia Hypothyroid Obesity (BMI 30-39.9) Parotitis History of thyroid cancer Rheumatoid arthritis Hypercholesterolemia Hypertension Insomnia Surgical History History of hysterectomy History of hysteroscopy History of thyroid surgery History of parathyroid surgery H/O wrist surgery History of tonsillectomy History of section Family History Father CAD (coronary artery disease) Mother Dementia CAD (coronary artery disease) Sister Breast cancer Depression Social History Housing: House Are you a primary healthcare business analyst to a significant other at home: No Do you presently have visiting nurse or other home services: No Alcohol intake: current Alcohol intake frequency: holidays/special occasions only Patient Tobacco Use Status: Never used Tobacco Tobacco use type: Cigarette e-Cigarette/Vaping Use: Never Used Second Hand Smoke Exposure: No service: No Current occupational status: employed Current occupational exposures/hazards: No Cognitive needs: No Hearing needs: No Vision needs: Yes Female Reproductive History Menstrual Age of Menarche: 12 Questionnaire PHQ-9 Over the last 2 weeks, how often have you been bothered by any of the following problems? 1. Little interest or pleasure in doing things: not at all 2. Feeling down, depressed, or hopeless: not at all 3. Trouble falling or staying asleep, or sleeping too much: not at all 4. Feeling tired or having little energy: not at all 5. Poor appetite or overeating: not at all 6. Feeling bad about yourself - or that you are a failure or have let yourself or your family down: not at all 7. Trouble concentrating on things, such as reading the newspaper or watching television: not at all 8. Moving or speaking so slowly that other people could have noticed. Or the opposite - being so fidgety or restless that you have been moving around a lot more than usual: not at all 9. Thoughts that you would be better off or of hurting yourself in some way: not at all Total score: 0 Depression Screening Interpretation: Negative Depression Screening Done: Yes Source: Developed by Drs. Miah Moreno, Junior Carranza and colleagues, with an educational beth from [employer]. Thrive Questionnaire Date Thrive assessed: 03/16/24 I am a: Patient What is your living situation today?: I have a steady place to live Within the past 12 months, did the food you bought not last and you didn't have the money to get more?: Never true Within the past 12 months, did you worry whether your food would run out before you got money to buy more?: Never true Do you have trouble paying for medicines?: No Do you have trouble getting transportation to medical appointments?: No Do you have trouble paying your heating and electricity bill?: No Do you have trouble taking care of your child, family member or friend?: No Do you have trouble with day-to-day activities such as bathing, preparing meals, shopping, managing finances, etc.?: No Are you currently unemployed and looking for a job?: No Are you interested in more education?: No Currently or been in a relationship where the following occur: I choose not to answer THRIVE Score: 0 AUDIT C Alcohol Use Questionnaire (AUDIT-C) 2. How many drinks containing alcohol do you have on a typical day when you are drinking?: 1 or 2 3. How often do you have six or more drinks on one occasion?: Never Total Score: 0 JAIRO-7 AMB Questionnaire JAIRO-7 Date JAIRO - 7 assessed: 03/16/24 Feeling nervous, anxious, or on edge: 0 = Not at all Not being able to stop or control worryin = Not at all Worrying too much about different things: 0 = Not at all Trouble relaxin = Not at all Being so restless that it is hard to sit still: 0 = Not at all Becoming easily annoyed or irritable: 0 = Not at all Feeling afraid as if something awful might happen: 0 = Not at all Total JAIRO-7 score (0-4 normal; 5-9 mild; 10-14 moderate; 15-21 severe): 0 Source: Developed by Katia Loredo Kurt Kroenke and colleagues, with an educational beth from [employer]. Physical exam (Primary Care) Vital Signs: Last Vital Signs Pulse 79 03/16/24 12:37 BP 124/62 03/16/24 12:37 Pulse Ox 97 03/16/24 12:37 Oxygen Delivery Method Room Air 03/16/24 12:37 Tobacco/Smoking Status: Tobacco use Status Tobacco use date assessed 03/16/24 03/16/24 12:40 Patient Tobacco Use Status Never used Tobacco 03/16/24 12:40 Tobacco use type Cigarette 03/16/24 12:40 e-Cigarette/Vaping Use Never Used 03/16/24 12:40 PHQ-9: PHQ-9 Score PHQ-9: Total score 0 03/16/24 12:54 Depression Screening Interpretation: Negative Thrive Assessment: Date of Thrive Assessment Date Thrive assessed 03/16/24 03/16/24 12:40 Currently or been in a relationship where the following occur: I choose not to answer Const General: alert; No acute distress Eyes Conjunctivae: conjunctivae normal Resp Auscultation: clear to auscultation bilaterally Cardio Rate: regular rate Rhythm: regular rhythm GI Inspection: Yes normal to inspection Extrem General: Yes normal to inspection and No edema Results AMB Hemoglobin A1c AMB Hemoglobin A1c 7.2 % Last Edit by Kimberly Goncalves CMA on 03/16/24 12 :55 Results Reviewed Results Reviewed: Laboratory Last Values Hgb A1c (Clinic) 7.2 % (4.0-6.0) H 03/16/24 12:40 Coding Level of Care Code Est Pt Level 4 (46558) Complex EM visit Add On G2211 Diagnoses Anterolisthesis of cervical spine M43.12 Colon cancer screening Z12.11 Stage 3a chronic kidney disease N18.31 Chronic kidney disease stage 3 subtype: stage 3a (GFR 45-59) Osteopenia M85.80 Postoperative hypothyroidism E89.0 Rheumatoid arthritis involving multiple sites with positive rheumatoid factor M05.79 Rheumatoid arthritis location: multiple sites Rheumatoid factor presence: with rheumatoid factor Essential hypertension I10 Hypertension type: essential hypertension Hypercholesterolemia E78.00 Ventral hernia K43.9 Assessment & Plan Assessment & Plan (1) Anterolisthesis of cervical spine: Code(s): M43.12 - Spondylolisthesis, cervical region Category: Medical (2) Colon cancer screening: Code(s): Z12.11 - Encounter for screening for malignant neoplasm of colon Category: Medical (3) CKD (chronic kidney disease) stage 3, GFR 30-59 ml/min: Code(s): N18.30 - Chronic kidney disease, stage 3 unspecified Category: Medical Qualifiers: Chronic kidney disease stage 3 subtype: stage 3a (GFR 45-59) Qualified Code(s): N18.31 - Chronic kidney disease, stage 3a (4) Osteopenia: Comment: February 2019, 12/2023 Code(s): M85.80 - Other specified disorders of bone density and structure, unspecified site Category: Medical (5) Postoperative hypothyroidism: Code(s): E89.0 - Postprocedural hypothyroidism Category: Medical (6) Rheumatoid arthritis: Comment: Diagnosed in her 20s Methotrexate: currently maintained onn 4-5 pills per week due to LFTs derangements Infliximab: Stopped due to change in Physician Humira: Self discontinued due to burning at injection site Xeljanz: Discontinued due to recurrent papillary thyroid cancer Plaquenil: Did not tolerate Code(s): M06.9 - Rheumatoid arthritis, unspecified Category: Medical Qualifiers: Rheumatoid arthritis location: multiple sites Rheumatoid factor presence: with rheumatoid factor Qualified Code(s): M05.79 - Rheumatoid arthritis with rheumatoid factor of multiple sites without organ or systems involvement (7) Hypertension: Code(s): I10 - Essential (primary) hypertension Category: Medical Qualifiers: Hypertension type: essential hypertension Qualified Code(s): I10 - Essential (primary) hypertension (8) Hypercholesterolemia: Code(s): E78.00 - Pure hypercholesterolemia, unspecified Category: Medical (9) Ventral hernia: Code(s): K43.9 - Ventral hernia without obstruction or gangrene Category: Medical Plan - Continue current management for diabetes mellitus, ensuring adequate hydration and monitoring hemoglobin A1c levels. - Maintain current hypertension treatment with Lisinopril 10 mg daily. - Continue Simvastatin for hypercholesterolemia; recheck levels in four months. - Follow-up with nephrology for chronic kidney disease stage 3, maintaining hydration and reducing Diclofenac usage. - Manage hypothyroidism with regular Levothyroxine dosing and monitor TSH levels. - Follow rheumatologic recommendations for rheumatoid arthritis management, continue Leflunomide therapy, and assess symptom control. - Conservative treatment for cervical spine spondylosis; no surgery needed currently. - Consult general surgery regarding the suspected abdominal hernia for evaluation and potential correction after elective risk assessment. - Routine follow-up to monitor overall health status and adjust treatment plans as necessary. Orders: Orders AMB Hemoglobin A1c Today Z13.9 - Encounter for screening, unspecified Vitamin D 25-OH Total 4 Months N18.31 - Chronic kidney disease, stage 3a Hemoglobin A1c 4 Months N18.31 - Chronic kidney disease, stage 3a Complete Blood Count Auto Diff 4 Months N18.31 - Chronic kidney disease, stage 3a Comprehensive Met. Panel 4 Months N18.31 - Chronic kidney disease, stage 3a Free T4 (Free Thyroxine) 4 Months N18.31 - Chronic kidney disease, stage 3a Lipid Panel 4 Months E78.00 - Pure hypercholesterolemia, unspecified, N18.31 - Chronic kidney disease, stage 3a Thyroid Stimulating Hormone 4 Months N18.31 - Chronic kidney disease, stage 3a Vitamin B12 and Folate 4 Months N18.31 - Chronic kidney disease, stage 3a Referrals General Surgery Referral K43.9 - Ventral hernia without obstruction or gangrene Medications: Discontinued empagliflozin Discontinued Reason: Duplicate 25 mg PO DAILY 90 days 90 tabs 6RF E11.65 - Type 2 diabetes mellitus with hyperglycemia
--- OUTSIDE RECORDS SUMMARY | 2024-03-16 13:01 | XMS_ITS | Clinical Summary ---
Author Organization [facility] Address [address] [place] [address] Care Team Providers Care Industrial Court Magistrate Name Role Phone ValenteBarbara Katelynn Primary Care Provider [phone] Allergies Active Allergy Reactions Criticality Noted Date [...] in February. Rheumatoid arthritis 10/16/2008 Overview (11/01/2016): typist Dr. 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 Problems [...] complete this topic Procedures * Due to [place] law, this organization might not be sharing negative HIV tests. Procedure Name Priority Date/Time Associated Diagnosis Comments MICROALBUMIN, RANDOM URINE WITH CREATININE Routine 01/24/2020 9:14 AM EST Stage 3b chronic kidney disease BASIC METABOLIC PANEL, OUTSIDE LAB Routine 08/30/2019 HEMOGLOBIN A1C Routine 05/28/2017 3:55 PM EDT Type 2 diabetes mellitus without complication, without long-term current use of insulin ([facility]) DIABETES EYE EXAM Routine 07/31/2016 9:16 AM EDT MAMMOGRAPHY Routine 05/15/2016 12:00 AM EDT PAP W/HPV, CONVERSION Routine 06/17/2014 10:55 AM EDT HEPATITIS C ANTIBODY W/REFLEX TO HCV RNA, QUANTITATIVE PCR Routine 03/03/2014 2:31 PM EST from Last 3 Months or Most Recently Relevant to Health Maintenance Results * Due to [place] law, this organization might not be sharing negative HIV tests. * (ABNORMAL) Microalbumin/Creatinine Urine Ratio, Random (01/24/2020 9:14 AM EST) Microalbumin, Urine 5.0 mg/dL 01/24/2020 11:04 AM EST [facility] Creatinine, Urine 23 15 - 278 mg/dL 01/24/2020 11:04 AM EST [facility] Microalb/Creat Ratio, Random Urine 217.4(H) <30.0 mcg/mgCr 01/24/2020 11:04 AM EST [facility] Comment: Microalbumin Reference Range: Normal ? <30 mcg/mg Creatinine Microalbuminuria ? 30-300 mcg/mg Creatinine Clinical Albuminuria >300 mcg/mg Creatinine Reference: ADA Guideline. Diabetes Care. 2004;27 (suppl 1) Urine Voided urine specimen / Unknown Non-Blood Collection / Unknown 01/24/2020 9:14 AM EST 01/24/2020 10:30 AM EST us Meaghan Ziegler MD LAB URINE ORDERABLES Final Res ult [facility] [address] [place] [address] * (ABNORMAL) Basic Metabolic Panel, Outside Lab (08/30/2019) Potassium 4.9 Creatinine 1.45(H) mg/dL eGFR Non- 37(L) Blood Structure of peripheral vein / Unknown 08/30/2019 us Unknown Provider LAB BLOOD ORDERABLES Final R esult * (ABNORMAL) Hemoglobin A1c (05/28/2017 3:55 PM EDT) Hemoglobin A1C 7.6(H) <5.7 % of total Hgb 05/28/2017 10:49 PM EDT [employer] Comment: For someone without known diabetes, a [...] (MG/DL) 171 (calc) 05/28/2017 10:49 PM EDT [employer] [facility] eAG (MMOL/L) 9.5 (calc) 05/28/2017 10:49 PM EDT [employer] [facility] Blood specimen (specimen) Structure of peripheral vein / Unknown Venipuncture / Unknown 05/28/2017 3:55 PM EDT 05/28/2017 4:30 PM EDT Narrative [facility] - 05/28/2017 10:49 PM EDT [facility] Received Date:[id number] Jose Manuel Bell MD LAB BLOOD ORDERABLES Final Re sult Performing Organization Address City/[facility]/ZIP Co de Phone Number [facility] [address], [place] [address], [employer] [address], [place] [address], * DIABETES EYE EXAM (07/31/2016 9:16 AM EDT) Eye Exam [id number] [facility] MANUAL RESULTS 07/31/2016 9:16 AM EDT Benita Napier MD HEALTH MAINTENANCE Final Resul t Performing Organization Address [facility]/ZIP Co de Phone Number [facility] MANUAL RESULTS * MAMMOGRAPHY (05/15/2016 12:00 AM EDT) Mammogram Benign/ there are scattered areas of fibroglandular density . No significant change from prior study 2 OUTSIDE LABORATORY Anatomical Region Laterality Modality Other 05/15/2016 us Historical Conversion Provider HEALTH MAINTENANC E Final Result * Pap w/HPV (06/17/2014 10:55 AM EDT) Path Procedure TPGAS ([id number]) 1 ?? HPVHR([id number]) 1 ?? Edited by: [id number] - 3750 [id number] ?? [id number] BW-SCRPT6 [facility] Specimen Labeled As: 1 CERVICAL/ENDOCERVI MAKAYLA CYTO MATERIAL - Edited by: [id number] [facility] Additional Test Information Specimens were tested for high risk HPV using the FDA approved Digene Hybrid ?? Capture II kit, in the Diagnostic Molecular Oncology Lab at [facility] ?? Health Care. ??This test can detect [...] abnormality. ??We endorse the recommendations of the [place] Society for ?? Colposcopy and Cervical Pathology [...] complexity clinical laboratory testing. ?? Edited by: [id number] - 3 BW-SCRPT6 [facility] Diagnosis ThinPrep Pap Test ? Adequacy: Satisfactory for evaluation ? Interpretation: Negative for Intraepithelial Lesion or Malignancy ? Remarks/Recommenda tions: ?? This is the result of a morphological screening test with an inherent ?? possibility of a false negative interpretation. ?? This Pap test was examined in accordance with the [facility] Cytopathology ?? Laboratory written policy, which incorporates all CLIA mandates. Screening ?? guidelines can be found in Am J Clin Pathol 2012;137:516-542. ??We endorse the ?? practice guidelines developed by ASCCP and published in the Journal Lower ?? Genital Tract Disease 17(5):S1-S27 (2013). ? This Pap test was examined by the ThinPrep Imaging System, [employer], [place], [place]. ?- High risk HPV DNA subtypes: NEGATIVE ?? Edited by: [id number] - 9160 -SCRPT6 ?? [id number] FERRSAEED [facility] Gynecologic Clinical Data Specimen source:, THINPREP (CERVICAL AND ENDOCERVICAL) [facility] Gynecologic Clinical Data Gynecologic findings:, POST MENOPAUSAL [facility] Pathology Codes Client Order Code:, TPHGS3 [facility] Pathology Codes Bill Type:, 3RD [employer] [facility] Completed Report [id number] HPV, HIGH RISK TYPES 1 [facility] Marker 1 TOR GOMES [facility] Marker 2 MDNEG,MD NEGATIVE [facility] Marker 3 NILM,NILM [facility] Marker 4 RIM,RECEIVED IN MOLECULAR [facility] Marker 5 CRISTY GHOSH-ANDI [facility] Cc Results To COMPA GODDARD K. PACKING CLERK ??[id number] ?? JOHNNY SIU ??[id number] [facility] Signature REPORT SIGNED: TOR LAURA 06/29/14 [facility] Sign Out Audit TOR LAURA [id number] [place]AL [place] [id number] [facility] Cytology / Unknown 10:55 AM EDT 06/20/2014 10:55 AM EDT Juliet Napier MD LAB HISTORICAL RESULT S Final Result [facility] [address] [place] [address], * Hepatitis C Antibody w/Reflex to HCV RNA, Quantitative PCR (03/03/2014 2:31 PM EST) Hepatitis C Antibody NON-REACTI VE NON-REACT CRISTINA [facility] Signal To Cut-Off 0.06 <1.00 [facility] 03/03/2014 2:31 PM EST 03/03/2014 3:50 PM EST Jessi Garcia LAB BLOOD ORDERABLES Final Resul t ENEIDA MCGARRY from Last 3 Months or Most Recently Relevant to Health Maintenance Insurance [employer] Advance Directives Documents on File Type Date Recorded Patient Structural Designer Expl anation Advance Directive 09/12/2014 12:00 AM sf Me dical Dec Making (Adv.Dir) Care Teams Industrial Court Magistrate Relationship Specialty Start Date End Date Barbara Victor [address] [place] [address] dr Supa [place]art, [place] [address] PCP - General Internal Medicine 06/24/17
--- OUTSIDE RECORDS SUMMARY | 2024-03-16 13:01 | XMS_ITS | Clinical Summary ---
Author Organization [facility] Address [address] [id number] Care Team Providers Care Infection Control Practitioner Name Role Phone Anderson Sanchez Primary Care Provider [phone] Allergies No known active allergies Medications Diclofenac-Mis [...] complete this topic Zoster (Zostavax) Discontinued Insurance [facility] * Guarantor: [employer] Account Type Relation to Patient Date of Phone Billing Address [employer] [address] [place] [address] EYEMED ACCESS Care Teams Infection Control Practitioner Relationship Specialty Start Date End Date Anderson Sanchez [address] [address] PCP - General Rheumatology 06/10/12
--- OUTSIDE RECORDS SUMMARY | 2024-03-16 13:01 | XMS_ITS | Encounter Summary ---
Author Organization [facility] Address [address] [place] [address] Care Team Providers Care Lumber Piler Name Role Phone ValenteBarbara Katelynn Primary Care Provider [phone] Reason for Visit * Reason Onset Date Comments Med Refill 03/30/2021 Encounter Details Date Type Department Care Team (Late st Contact Info) Description 03/30/2021 Telephone [facility] [address] [place] [address] Telephone Intake, Staff Med Refill Social History [...] not request PCP information rather they requested [facility] endo contact info and did not give a reason why. Since endo does not prescribe the med, nurse requested that pt call [employer] to resolve issue. * Telephone Encounter - [...] Pt of Dr. Franklin Almonte calling from [employer] This is her second attempt at trying to get a renewal for pt (Onglyza 5mg) Please call or fax to: Please: use reference #[id number] documented in this encounter Plan of Treatment Not on file documented as of this encounter Visit Diagnoses Not on filedocumented in this encounter Care Teams Lumber Piler Relationship Specialty Start Date End Date Barbara Victor [address] [place] [address] dr Supa Cowart, [place] [address] PCP - General Internal Medicine 06/24/17 documented as of this encounter
--- OUTSIDE RECORDS SUMMARY | 2024-03-16 13:01 | XMS_ITS | Referral Summary ---
Author Organization [facility] Address [address] [place] [address] Care Team Providers Care Traffic Control Technician Name Role Phone ValenteBarbara Katelynn Primary Care Provider [phone] Allergies Active Allergy Reactions Criticality Noted Date [...] in February. Rheumatoid arthritis 10/16/2008 Overview (11/01/2016): social psychologist Dr. 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 Problems [...] Not on file Procedures * Due to [place] state law, this organization might not be sharing negative HIV tests. Procedure Name Priority Date/Time Associated Diagnosis Comments MICROALBUMIN, RANDOM URINE WITH CREATININE Routine 01/24/2020 9:14 AM EST Stage 3b chronic kidney disease BASIC METABOLIC PANEL, OUTSIDE LAB Routine 08/30/2019 HEMOGLOBIN A1C Routine 05/28/2017 3:55 PM EDT Type 2 diabetes mellitus without complication, without long-term current use of insulin ([facility]) DIABETES EYE EXAM Routine 07/31/2016 9:16 AM EDT MAMMOGRAPHY Routine 05/15/2016 12:00 AM EDT PAP W/HPV, CONVERSION Routine 06/17/2014 10:55 AM EDT HEPATITIS C ANTIBODY W/REFLEX TO HCV RNA, QUANTITATIVE PCR Routine 03/03/2014 2:31 PM EST from Last 3 Months or Most Recently Relevant to Health Maintenance Results * Due to [place] [employer] law, this organization might not be sharing negative HIV tests. * (ABNORMAL) Microalbumin/Creatinine Urine Ratio, Random (01/24/2020 9:14 AM EST) Microalbumin, Urine 5.0 mg/dL 01/24/2020 11:04 AM EST [facility] Creatinine, Urine 23 15 - 278 mg/dL 01/24/2020 11:04 AM EST [facility] Microalb/Creat Ratio, Random Urine 217.4(H) <30.0 mcg/mgCr 01/24/2020 11:04 AM EST [facility] Comment: Microalbumin Reference Range: Normal ? <30 mcg/mg Creatinine Microalbuminuria ? 30-300 mcg/mg Creatinine Clinical Albuminuria >300 mcg/mg Creatinine Reference: ADA Guideline. Diabetes Care. 2004;27 (suppl 1) Urine Voided urine specimen / Unknown Non-Blood Collection / Unknown 01/24/2020 9:14 AM EST 01/24/2020 10:30 AM EST us Meaghan Ziegler MD LAB URINE ORDERABLES Final Res ult [facility] [address] [place] [address], [place] * (ABNORMAL) Basic Metabolic Panel, Outside Lab (08/30/2019) Potassium 4.9 Creatinine 1.45(H) mg/dL eGFR Non- 37(L) Blood Structure of peripheral vein / Unknown 08/30/2019 us Unknown Provider LAB BLOOD ORDERABLES Final R esult * (ABNORMAL) Hemoglobin A1c (05/28/2017 3:55 PM EDT) Hemoglobin A1C 7.6(H) <5.7 % of total Hgb 05/28/2017 10:49 PM EDT [facility] Comment: For someone without known diabetes, a [...] (MG/DL) 171 (calc) 05/28/2017 10:49 PM EDT [facility] eAG (MMOL/L) 9.5 (calc) 05/28/2017 10:49 PM EDT [facility] Blood specimen (specimen) Structure of peripheral vein / Unknown Venipuncture / Unknown 05/28/2017 3:55 PM EDT 05/28/2017 4:30 PM EDT Narrative [facility] - 05/28/2017 10:49 PM EDT [facility] Received Date:[id number] Jose Manuel Bell MD LAB BLOOD ORDERABLES Final Re sult [facility] [address] [facility] 3rd Floor, [place] [address], [place] [phone] [employer] [facility] [address] [facility] 3rd Floor, [place] [address], [place] [phone] * DIABETES EYE EXAM (07/31/2016 9:16 AM [...] (06/17/2014 10:55 AM EDT) Path Procedure TPGAS ([id number]) 1 ?? HPVHR([id number]) 1 ?? Edited by: [id number] JOI ?? [id number] - 1324 -SCRPT6 [facility] Specimen Labeled As: 1 CERVICAL/ENDOCERVI MAKAYLA CYTO MATERIAL - Edited by: [id number] [facility] Additional Test Information Specimens were tested for high risk HPV using the FDA approved Digene Hybrid ?? Capture II kit, in the Diagnostic Molecular Oncology Lab at [facility] ?? Health Care. ??This test can [...] abnormality. ??We endorse the recommendations of the [place] Society for ?? Colposcopy and Cervical Pathology [...] complexity clinical laboratory testing. ?? Edited by: [id number] - 1324 -SCRPT6 [facility] Diagnosis [...] was examined by the ThinPrep Imaging System, [employer], [place], [place]. ?- High risk HPV DNA subtypes: NEGATIVE ?? Edited by: [id number] - 0362 -SCRPT6 ?? [id number] - 6233 FERRAROLaurie [facility] Gynecologic Clinical Data Specimen source:, THINPREP (CERVICAL AND ENDOCERVICAL) [facility] Gynecologic Clinical Data Gynecologic findings:, POST MENOPAUSAL [facility] Pathology Codes Client Order Code:, TPHGS3 [facility] Pathology Codes Bill Type:, 3RD [employer] BILLING [facility] Completed Report [id number] HPV, HIGH RISK TYPES 1 [facility] Marker 1 TOR GOMES [facility] Marker 2 MD SHLOMO NEGATIVE [facility] Marker 3 NILM,NILM [facility] Marker 4 RIM,RECEIVED IN MOLECULAR [facility] Marker 5 CRISTY GHOSH-ANDI [facility] Cc Results To COMPA Bishop HYDROCRANE OPERATOR ??[id number] ?? JOHNNY SIU ??[id number] [facility] Signature REPORT SIGNED: TOR LAURA 06/29/14 [facility] Sign Out Audit TOR LAURA [id number] FINAL [place]ÍNLaurie [id number] [facility] Cytology / Unknown 10:55 AM EDT 06/20/2014 10:55 AM EDT us Juliet Napier MD LAB HISTORICAL RESULT S Final Result [facility] [address] [place] [address], [place] * Hepatitis C Antibody w/Reflex to HCV RNA, Quantitative PCR (03/03/2014 2:31 PM EST) Hepatitis C Antibody NON-REACTI VE NON-REACT CRISTINA ENE[facility] HARRIMAN Signal To Cut-Off 0.06 <1.00 [facility] 03/03/2014 2:31 PM EST 03/03/2014 3:50 PM EST [facility] LAB BLOOD ORDERABLES Final Resul t ENEIDA MCGARRY from Last 3 Months or Most Recently Relevant to Health Maintenance Insurance [employer] Advance Directives Documents on File Type Date Recorded Patient Side Gluer Expl anation Advance Directive 09/12/2014 12:00 AM [facility] dical Dec Making (Adv.Dir) Care Teams Traffic Control Technician Relationship Specialty Start Date End Date Barbara Victor [address] [place] [address] [place] [address] PCP - General Internal Medicine 06/24/17
--- OUTSIDE RECORDS SUMMARY | 2024-03-16 13:01 | XMS_ITS | Encounter Summary ---
Author Organization [facility] Address [address] [place] [address] Care Team Providers Care Supervisor Finishing Room Name Role Phone Barbara Victor Primary Care Provider [phone] Encounter Details Date Type Department Care Team (Late st Contact Info) Description 07/02/2016 Orders Only [facility] [address] [address] 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 MD [address] [place] [address] Social History Tobacco Use Types Packs/Day Years [...] on filedocumented in this encounter Care Teams Supervisor Finishing Room Relationship Specialty Start Date End Date Barbara Victor [address] [place] [address] [place] [address] PCP - General Internal Medicine 06/24/17 documented as of this encounter
--- OUTSIDE RECORDS SUMMARY | 2024-03-16 13:01 | XMS_ITS | Encounter Summary ---
Author Organization [facility] Address [address] [place] [address] Care Team Providers Care Arrt Technologist Name Role Phone Barbara Victor Primary Care Provider [phone] Encounter Details Date Type Department Care Team (Late st Contact Info) Description 09/24/2016 Orders Only [facility] [address] [address] 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 MD [address] [place] [phone] Social History Tobacco Use Types Packs/Day Years [...] on filedocumented in this encounter Care Teams Arrt Technologist Relationship Specialty Start Date End Date Barbara Victor [address] [place] [address] [place] [address] PCP - General Internal Medicine 06/24/17 documented as of this encounter
--- OUTSIDE RECORDS SUMMARY | 2024-03-16 13:01 | XMS_ITS | Encounter Summary ---
Author Organization [facility] Address [address] [place] [address] Care Team Providers Care Before School Name Role Phone Barbara Victor Primary Care Provider [phone] Encounter Details Date Type Department Care Team (Late st Contact Info) Description 03/25/2016 Orders Only [facility] [address] [address] 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 MD [address] [place] [address] Social History Tobacco Use Types Packs/Day Years [...] on filedocumented in this encounter Care Teams Before School Relationship Specialty Start Date End Date Barbara Victor [address] [place] [address] [place] [address] PCP - General Internal Medicine 06/24/17 documented as of this encounter
== END 2024-03-16 13:16 | disposition home or self-care (01) ==
PROVIDERS: PCP Internal Medicine; Visit Provider Internal Medicine
DX: I12.9 Hypertensive chronic kidney disease with stage 1 through stage 4 chronic kidney disease, or unspecified chronic kidney disease (principal); M05.79 Rheumatoid arthritis with rheumatoid factor of multiple sites without organ or systems involvement; N18.31 Chronic kidney disease, stage 3a; M43.12 Spondylolisthesis, cervical region; Z12.11 Encounter for screening for malignant neoplasm of colon; M85.80 Other specified disorders of bone density and structure, unspecified site; E89.0 Postprocedural hypothyroidism; E78.00 Pure hypercholesterolemia, unspecified; K43.9 Ventral hernia without obstruction or gangrene

== ENCOUNTER → 2024-03-16 12:26 | Outpatient (BNVA) | payer OTHER, SELFPAY | PROVIDERS: PCP Internal Medicine; Visit Provider Internal Medicine | DX: E11.22 Type 2 diabetes mellitus with diabetic chronic kidney disease (principal); I12.9 Hypertensive chronic kidney disease with stage 1 through stage 4 chronic kidney disease, or unspecified chronic kidney disease; N18.31 Chronic kidney disease, stage 3a; E78.00 Pure hypercholesterolemia, unspecified; M43.12 Spondylolisthesis, cervical region; M85.80 Other specified disorders of bone density and structure, unspecified site; E89.0 Postprocedural hypothyroidism; M05.79 Rheumatoid arthritis with rheumatoid factor of multiple sites without organ or systems involvement; K43.9 Ventral hernia without obstruction or gangrene; Z79.899 Other long term (current) drug therapy | CPT/HCPCS: 83036; 96127 ==

== ENCOUNTER → 2024-03-18 07:28 | Outpatient (AMB) | payer OTHER, SELFPAY ==
--- OUTSIDE RECORDS SUMMARY | 2024-03-18 07:29 | XMS_ITS | Referral Summary ---
Author Organization [facility] Address [address] [place] [address] Care Team Providers Care Fourdrinier Tender Name Role Phone ValenteBarbara Katelynn Primary Care Provider [phone] Allergies Active Allergy Reactions Criticality Noted Date [...] in February. Rheumatoid arthritis 10/16/2008 Overview (11/01/2016): project asst Dr. 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 Problems [...] Not on file Procedures * Due to [place] state law, this organization might not be sharing negative HIV tests. Procedure Name Priority Date/Time Associated Diagnosis Comments MICROALBUMIN, RANDOM URINE WITH CREATININE Routine 01/24/2020 9:14 AM EST Stage 3b chronic kidney disease BASIC METABOLIC PANEL, OUTSIDE LAB Routine 08/30/2019 HEMOGLOBIN A1C Routine 05/28/2017 3:55 PM EDT Type 2 diabetes mellitus without complication, without long-term current use of insulin ([facility]) DIABETES EYE EXAM Routine 07/31/2016 9:16 AM EDT MAMMOGRAPHY Routine 05/15/2016 12:00 AM EDT PAP W/HPV, CONVERSION Routine 06/17/2014 10:55 AM EDT HEPATITIS C ANTIBODY W/REFLEX TO HCV RNA, QUANTITATIVE PCR Routine 03/03/2014 2:31 PM EST from Last 3 Months or Most Recently Relevant to Health Maintenance Results * Due to [place] [employer] law, this organization might not be sharing negative HIV tests. * (ABNORMAL) Microalbumin/Creatinine Urine Ratio, Random (01/24/2020 9:14 AM EST) Microalbumin, Urine 5.0 mg/dL 01/24/2020 11:04 AM EST [facility] Creatinine, Urine 23 15 - 278 mg/dL 01/24/2020 11:04 AM EST [facility] Microalb/Creat Ratio, Random Urine 217.4(H) <30.0 mcg/mgCr 01/24/2020 11:04 AM EST [facility] Comment: Microalbumin Reference Range: Normal ? <30 mcg/mg Creatinine Microalbuminuria ? 30-300 mcg/mg Creatinine Clinical Albuminuria >300 mcg/mg Creatinine Reference: ADA Guideline. Diabetes Care. 2004;27 (suppl 1) Urine Voided urine specimen / Unknown Non-Blood Collection / Unknown 01/24/2020 9:14 AM EST 01/24/2020 10:30 AM EST us Meaghan Ziegler MD LAB URINE ORDERABLES Final Res ult [facility] [address] [place] [address], [place] * (ABNORMAL) Basic Metabolic Panel, Outside Lab (08/30/2019) Potassium 4.9 Creatinine 1.45(H) mg/dL eGFR Non- 37(L) Blood Structure of peripheral vein / Unknown 08/30/2019 us Unknown Provider LAB BLOOD ORDERABLES Final R esult * (ABNORMAL) Hemoglobin A1c (05/28/2017 3:55 PM EDT) Hemoglobin A1C 7.6(H) <5.7 % of total Hgb 05/28/2017 10:49 PM EDT [facility] Comment: For someone without known diabetes, a [...] (MG/DL) 171 (calc) 05/28/2017 10:49 PM EDT [facility] eAG (MMOL/L) 9.5 (calc) 05/28/2017 10:49 PM EDT [facility] Blood specimen (specimen) Structure of peripheral vein / Unknown Venipuncture / Unknown 05/28/2017 3:55 PM EDT 05/28/2017 4:30 PM EDT Narrative [facility] - 05/28/2017 10:49 PM EDT [facility] Received Date:[id number] Jose Manuel Bell MD LAB BLOOD ORDERABLES Final Re sult [facility] [address] [facility] 3rd Floor, [place] [address], [place] [phone] [employer] [address] [facility] 3rd Floor, [place] [address], [place] [phone] * DIABETES EYE EXAM (07/31/2016 9:16 AM EDT) Eye Exam [id number] [facility]CR[facility]TS MANUAL RESULTS 07/31/2016 9:16 AM EDT Benita Napier MD HEALTH MAINTENANCE Final Resul t [facility]SCRIPTS MANUAL RESULTS * MAMMOGRAPHY (05/15/2016 12:00 AM EDT) Mammogram Benign/ there are scattered areas of fibroglandular density . No significant change from prior study 2 OUTSIDE LABORATORY Anatomical Region Laterality Modality Other 05/15/2016 Historical Conversion Provider HEALTH MAINTENANC E Final Result * Pap w/HPV (06/17/2014 10:55 AM EDT) Path Procedure TPGAS ([id number]) 1 ?? HPVHR([id number]) 1 ?? Edited by: [id number] JOI ?? [id number] - 1324 -SCRPT6 [facility] Specimen Labeled As: 1 CERVICAL/ENDOCERVI MAKAYLA CYTO MATERIAL - Edited by: [id number] [facility] Additional Test Information Specimens were tested for high risk HPV using the FDA approved Digene Hybrid ?? Capture II kit, in the Diagnostic Molecular Oncology Lab at [facility] ?? Health Care. ??This test can detect [...] abnormality. ??We endorse the recommendations of the [place] Society for ?? Colposcopy and Cervical Pathology [...] complexity clinical laboratory testing. ?? Edited by: [id number] - 1324 -SCRPT6 [facility] Diagnosis ThinPrep Pap Test ? Adequacy: Satisfactory for evaluation ? Interpretation: Negative for Intraepithelial Lesion or Malignancy ? Remarks/Recommenda tions: ?? This is the result of a morphological screening test with an inherent ?? possibility of a false negative interpretation. ?? This Pap test was examined in accordance with the [facility] Cytopathology ?? Laboratory written policy, which incorporates all CLIA mandates. Screening ?? guidelines can be found in Am J Clin Pathol 2012;137:516-542. ??We endorse the ?? practice guidelines developed by ASCCP and published in the Journal Lower ?? Genital Tract Disease 17(5):S1-S27 (2012). ? This Pap test was examined by the ThinPrep Imaging System, [employer], [place], [place]. ?- High risk HPV DNA subtypes: NEGATIVE ?? Edited by: [id number] - 0518 -SCRPT6 ?? [id number] - 0681 FERRAROLaurie [facility] Gynecologic Clinical Data Specimen source:, THINPREP (CERVICAL AND ENDOCERVICAL) [facility] Gynecologic Clinical Data Gynecologic findings:, POST MENOPAUSAL [facility] Pathology Codes Client Order Code:, TPHGS3 [facility] Pathology Codes Bill Type:, 3RD [employer]ILL[employer] [facility] Completed Report [id number] HPV, HIGH RISK TYPES 1 [facility] Marker 1 TOR GOMES [facility] - [facility] Marker 2 MD SHL[place]O NEGATIVE [employer] ANATOMIC PATHOLOGY - [facility] Marker 3 NILM,NILM [facility] Marker 4 RIM,RECEIVED IN MOLECULAR [facility] Marker 5 CRISTY GHOSH-ANDI [facility] Cc Results To COMPA Bishop TOWEL INSPECTOR ??[id number] ?? JOHNNY SIU ??[id number] [facility] Signature REPORT SIGNED: TOR LAURA 06/29/14 [facility] Sign Out Audit TOR LAURA [id number] FINAL [place]ÍNLaurie [id number] [facility] Cytology / Unknown 10:55 AM EDT 06/20/2014 10:55 AM EDT us Juliet Napier MD LAB HISTORICAL RESULT S Final Result [facility] [address] [place] [address], [place] * Hepatitis C Antibody w/Reflex to HCV RNA, Quantitative PCR (03/03/2014 2:31 PM EST) Hepatitis C Antibody NON-REACTI VE NON-REACT CRISTINA ENEIDA GAL[facility] Signal To Cut-Off 0.06 <1.00 [facility] 03/03/2014 2:31 PM EST 03/03/2014 3:50 PM EST [facility] LAB BLOOD ORDERABLES Final Resul t ENEIDA MCGARRY from Last 3 Months or Most Recently Relevant to Health Maintenance Insurance [place] Advance Directives Documents on File Type Date Recorded Patient Wreath Machine Tender Expl anation Advance Directive 09/12/2014 12:00 AM [facility] dical Dec Making (Adv.Dir) Care Teams Fourdrinier Tender Relationship Specialty Start Date End Date Barbara Victor [address] [place] [address] [place] [address] PCP - General Internal Medicine 06/24/17
--- OUTSIDE RECORDS SUMMARY | 2024-03-18 07:29 | XMS_ITS | Encounter Summary ---
Author Organization [facility] Address [address] [place] [address] Care Team Providers Care Programming Development Project Manager Name Role Phone ValenteBarbara Katelynn Primary Care Provider [phone] Reason for Visit * Reason Onset Date Comments Med Refill 03/30/2021 Encounter Details Date Type Department Care Team (Late st Contact Info) Description 03/30/2021 Telephone [facility] [address] [place] [address] Telephone Intake, Staff Med Refill Social History [...] not request PCP information rather they requested [facility] endo contact info and did not give a reason why. Since endo does not prescribe the med, nurse requested that pt call [facility] to resolve issue. * Telephone Encounter - Aziza Redi MD - 03/30/2021 1:06 PM EST I [...] Pt of Dr. Franklin Almonte calling from [facility] This is her second attempt at trying to get a renewal for pt (Onglyza 5mg) Please call or fax to: Please: use reference #[id number] documented in this encounter Plan of Treatment Not on file documented as of this encounter Visit Diagnoses Not on filedocumented in this encounter Care Teams Programming Development Project Manager Relationship Specialty Start Date End Date Barbara Victor [address] [place] [address] dr Supa [place], [place] [address] PCP - General Internal Medicine 06/24/17 documented as of this encounter
--- OUTSIDE RECORDS SUMMARY | 2024-03-18 07:29 | XMS_ITS | Clinical Summary ---
Author Organization [facility] Address [address] [id number] Care Team Providers Care Head Of Operation And Logistics Name Role Phone Anderson Sanchez Primary Care Provider [phone] Allergies No known active allergies Medications Diclofenac-Mis [...] complete this topic Zoster (Zostavax) Discontinued Insurance [facility] FEE FOR SERVICE PPO * Guarantor: [employer] Account Type Relation to Patient Date of Phone Billing Address [employer] [address] [place] [address] EYEMED ACCESS Care Teams Head Of Operation And Logistics Relationship Specialty Start Date End Date Anderson Sanchez [address] [address] PCP - General Rheumatology 06/10/12
--- OUTSIDE RECORDS SUMMARY | 2024-03-18 07:29 | XMS_ITS | Encounter Summary ---
Author Organization [facility] Address [address] [place] [address] Care Team Providers Care Patrol Officer Name Role Phone Barbara Victor Primary Care Provider [phone] Encounter Details Date Type Department Care Team (Late st Contact Info) Description 09/24/2016 Orders Only [facility] [address] [address] 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 MD [address] [place] [address] Social History Tobacco Use Types Packs/Day Years [...] on filedocumented in this encounter Care Teams Patrol Officer Relationship Specialty Start Date End Date Barbara Victor [address] [place] [address] [place] [address] PCP - General Internal Medicine 06/24/17 documented as of this encounter
--- OUTSIDE RECORDS SUMMARY | 2024-03-18 07:29 | XMS_ITS | Encounter Summary ---
Author Organization [facility] Address [address] [place] [address] Care Team Providers Care Station Chief Name Role Phone Barbara Victor Primary Care Provider [phone] Encounter Details Date Type Department Care Team (Late st Contact Info) Description 03/25/2016 Orders Only [facility] [address] [address] 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 MD [address] [place] [address] Social History Tobacco Use Types Packs/Day Years [...] on filedocumented in this encounter Care Teams Station Chief Relationship Specialty Start Date End Date Barbara Victor [address] [place] [address] [place] [address] PCP - General Internal Medicine 06/24/17 documented as of this encounter
--- OUTSIDE RECORDS SUMMARY | 2024-03-18 07:29 | XMS_ITS | Clinical Summary ---
Author Organization [facility] Address [address] [place] [address] Care Team Providers Care Supply Service Worker Name Role Phone ValenteBarbara Katelynn Primary Care Provider [phone] Allergies Active Allergy Reactions Criticality Noted Date [...] in February. Rheumatoid arthritis 10/16/2008 Overview (11/01/2016): gate cutter Dr. 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 Problems [...] complete this topic Procedures * Due to [facility] law, this organization might not be sharing negative HIV tests. Procedure Name Priority Date/Time Associated Diagnosis Comments MICROALBUMIN, RANDOM URINE WITH CREATININE Routine 01/24/2020 9:14 AM EST Stage 3b chronic kidney disease BASIC METABOLIC PANEL, OUTSIDE LAB Routine 08/30/2019 HEMOGLOBIN A1C Routine 05/28/2017 3:55 PM EDT Type 2 diabetes mellitus without complication, without long-term current use of insulin ([facility]) DIABETES EYE EXAM Routine 07/31/2016 9:16 AM EDT MAMMOGRAPHY Routine 05/15/2016 12:00 AM EDT PAP W/HPV, CONVERSION Routine 06/17/2014 10:55 AM EDT HEPATITIS C ANTIBODY W/REFLEX TO HCV RNA, QUANTITATIVE PCR Routine 03/03/2014 2:31 PM EST from Last 3 Months or Most Recently Relevant to Health Maintenance Results * Due to [facility] law, this organization might not be sharing negative HIV tests. * (ABNORMAL) Microalbumin/Creatinine Urine Ratio, Random (01/24/2020 9:14 AM EST) Microalbumin, Urine 5.0 mg/dL 01/24/2020 11:04 AM EST [facility] Creatinine, Urine 23 15 - 278 mg/dL 01/24/2020 11:04 AM EST [facility] Microalb/Creat Ratio, Random Urine 217.4(H) <30.0 mcg/mgCr 01/24/2020 11:04 AM EST [facility] Comment: Microalbumin Reference Range: Normal ? <30 mcg/mg Creatinine Microalbuminuria ? 30-300 mcg/mg Creatinine Clinical Albuminuria >300 mcg/mg Creatinine Reference: ADA Guideline. Diabetes Care. 2004;27 (suppl 1) Urine Voided urine specimen / Unknown Non-Blood Collection / Unknown 01/24/2020 9:14 AM EST 01/24/2020 10:30 AM EST us Meaghan Ziegler MD LAB URINE ORDERABLES Final Res ult [facility] [address] [place] [address] * (ABNORMAL) Basic Metabolic Panel, Outside Lab (08/30/2019) Potassium 4.9 Creatinine 1.45(H) mg/dL eGFR Non- 37(L) Blood Structure of peripheral vein / Unknown 08/30/2019 us Unknown Provider LAB BLOOD ORDERABLES Final R esult * (ABNORMAL) Hemoglobin A1c (05/28/2017 3:55 PM EDT) Hemoglobin A1C 7.6(H) <5.7 % of total Hgb 05/28/2017 10:49 PM EDT [employer] Comment: For someone without known diabetes, a [...] (MG/DL) 171 (calc) 05/28/2017 10:49 PM EDT [facility] eAG (MMOL/L) 9.5 (calc) 05/28/2017 10:49 PM EDT [facility] Blood specimen (specimen) Structure of peripheral vein / Unknown Venipuncture / Unknown 05/28/2017 3:55 PM EDT 05/28/2017 4:30 PM EDT Narrative [facility] - 05/28/2017 10:49 PM EDT [facility] Received Date:[id number] Jose Manuel Bell MD LAB BLOOD ORDERABLES Final Re sult Performing Organization Address City/[facility]/ZIP Co de Phone Number [facility] [address], [place] [address], [facility] EHR [address], [place] [address], * DIABETES EYE EXAM (07/31/2016 9:16 AM EDT) Eye Exam [id number] [facility] MANUAL RESULTS 07/31/2016 9:16 AM EDT Benita Napier MD HEALTH MAINTENANCE Final Resul t Performing Organization Address [facility]/ZIP Co de Phone Number [facility] MANUAL RESULTS * MAMMOGRAPHY (05/15/2016 12:00 AM EDT) Mammogram Benign/ there are scattered areas of fibroglandular density . No significant change from prior study 2 OUTSIDE LABORATORY Anatomical Region Laterality Modality Other 05/15/2016 us Historical Conversion Provider HEALTH MAINTENANC E Final Result * Pap w/HPV (06/17/2014 10:55 AM EDT) Path Procedure TPGAS ([id number]) 1 ?? HPVHR([id number]) 1 ?? Edited by: [id number] ?? [id number] BW-[id number] [facility] Specimen Labeled As: 1 CERVICAL/ENDOCERVI MAKAYLA CYTO MATERIAL - Edited by: [id number] [facility] Additional Test Information Specimens were tested for high risk HPV using the FDA approved Digene Hybrid ?? Capture II kit, in the Diagnostic Molecular Oncology Lab at [facility] ?? Health Care. ??This test can [...] abnormality. ??We endorse the recommendations of the [place] Society for ?? Colposcopy and Cervical Pathology [...] complexity clinical laboratory testing. ?? Edited by: [id number] - 1 BW-SCRPT6 [facility] Diagnosis ThinPrep Pap Test ? Adequacy: Satisfactory for evaluation ? Interpretation: Negative for Intraepithelial Lesion or Malignancy ? Remarks/Recommenda tions: ?? This is the result of a morphological screening test with an inherent ?? possibility of a false negative interpretation. ?? This Pap test was examined in accordance with the [facility] Cytopathology ?? Laboratory written policy, which incorporates all CLIA mandates. Screening ?? guidelines can be found in Am J Clin Pathol 2012;137:516-542. ??We endorse the ?? practice guidelines developed by ASCCP and published in the Journal Lower ?? Genital Tract Disease 17(5):S1-S27 (2013). ? This Pap test was examined by the ThinPrep Imaging System, [employer], [place], [place]. ?- High risk HPV DNA subtypes: NEGATIVE ?? Edited by: [id number] - 3108 -SCRPT6 ?? [id number] FERRSAEED [facility] - [facility] Gynecologic Clinical Data Specimen source:, THINPREP (CERVICAL AND ENDOCERVICAL) [facility] - [facility] Gynecologic Clinical Data Gynecologic findings:, POST MENOPAUSAL [facility] Pathology Codes Client Order Code:, TPHGS3 [facility] Pathology Codes Bill Type:, 3RD [employer] [facility] - [facility] Completed Report [id number] HPV, HIGH RISK TYPES 1 [facility] Marker 1 TOR GOMES [facility] ANATOM[facility] PATHOLOGY - [facility] Marker 2 MDNEG,MD NEGATIVE [facility] ANATOMIC PATHOLOGY - [facility] Marker 3 NILM,NILM [facility] - [facility] Marker 4 RIM,RECEIVED IN MOLECULAR [facility] - [facility] Marker 5 CRISTY GHOSH-ANDI [facility] - [facility] Cc Results To COMPA GODDARD K. ASPHALT MIXER ??[id number] ?? JOHNNY SIU ??[id number] [facility] Signature REPORT SIGNED: TOR LAURA 06/29/14 [facility] Sign Out Audit TOR LAURA [id number] FINAL [place] [id number] [facility] Cytology / Unknown 10:55 AM EDT 06/20/2014 10:55 AM EDT Juliet Napier MD LAB HISTORICAL RESULT S Final Result [facility] [address] [place] [address], * Hepatitis C Antibody w/Reflex to HCV RNA, Quantitative PCR (03/03/2014 2:31 PM EST) Hepatitis C Antibody NON-REACTI VE NON-REACT CRISTINA [facility] Signal To Cut-Off 0.06 <1.00 [facility] 03/03/2014 2:31 PM EST 03/03/2014 3:50 PM EST Jessi Garcia LAB BLOOD ORDERABLES Final Resul t ENEIDA MCGARRY from Last 3 Months or Most Recently Relevant to Health Maintenance Insurance [employer] Advance Directives Documents on File Type Date Recorded 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
--- OUTSIDE RECORDS SUMMARY | 2024-03-18 07:29 | XMS_ITS | Encounter Summary ---
Author Organization [facility] Address [address] [place] [address] Care Team Providers Care Civil Engineer Land Development Name Role Phone Barbara Victor Primary Care Provider [phone] Encounter Details Date Type Department Care Team (Late st Contact Info) Description 07/02/2016 Orders Only [facility] [address] [address] 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 MD [address] [place] [address] Social History Tobacco Use Types Packs/Day Years [...] on filedocumented in this encounter Care Teams Civil Engineer Land Development Relationship Specialty Start Date End Date Barbara Victor [address] [place] [address] [place] [address] PCP - General Internal Medicine 06/24/17 documented as of this encounter
--- NOTE | 2024-03-18 07:35 | A.OFFVIS_ITS ---
Vital Signs 03/18/24 07:38 Height 5 ft 2.5 in Weight 165 lb 3 oz BMI 29.7 BP 124/70 Blood Pressure Location Lt brachial Position Sitting Pulse 77 Pulse Source Pulse Oximeter Pulse Oximetry (%) 97 Oxygen Delivery Method Room Air Intake Visit Reasons: Follow up Intake Note: Patient presents for follow up. Allergies ciprofloxacin [Cipro] Allergy (Unknown, Verified 03/18/24 07:37) rash amlodipine Adverse Reaction (Intermediate, Verified 03/18/24 07:37) swelling Medication List - Last Reconciled 03/18/24 by Cecile Guzmán MD blood sugar diagnostic ([employer] Verio test strips) test once daily cholecalciferol (vitamin D3) 125 mcg PO .2x /week diclofenac sodium 37.5 mg (1/2 x 75 mg) PO BID empagliflozin (Jardiance) 25 mg PO DAILY folic acid 1 mg PO DAILY glimepiride 2 mg PO DAILY 90 days leflunomide 20 mg (2 x 10 mg) PO DAILY levothyroxine 112 mcg PO DAILY 90 days lisinopril 10 mg PO DAILY metformin 500 mg PO BID misoprostol 200 mcg PO BID norethindrone acetate 5 mg PO DAILY simvastatin 10 mg PO BEDTIME sitagliptin phosphate (Januvia) 50 mg PO DAILY 90 days triamcinolone acetonide (Nasacort Allergy) 2 sprays intranasal DAILY zolpidem (Ambien) 10 mg PO BEDTIME PRN 90 days HPI Comments Details: Patient is a 63-year-old female with diabetes complicated by CKD stage 3B - 4, hypertension, hypothyroidism and hyperlipidemia presents for follow up management of seropositive erosive rheumatoid arthritis. Interval History: Patient last seen 12/18/2023 with me. At that time she was establishing care for the management of her seropositive erosive rheumatoid arthritis. Based on her creatinine clearance the decision was made to stop her methotrexate and switch to leflunomide 20 mg. Since then, Patient has been noticing more achiness while on the leflunomide. She started it in December We also noted on her C-spine that there was instability this was followed up with an MRI and then she was ultimately sent to a neurosurgeon who evaluated her. No surgical intervention necessary at this time Today, Patient reports she is doing overall well Does feel more achy in her joints especially her feet Rheumatologic History: Patient diagnosed with rheumatoid arthritis in her 20s and has been on: Methotrexate: currently maintained onn 4-5 pills per week due to LFTs derangements Infliximab: Stopped due to change in Physician Humira: Self discontinued due to burning at injection site Xeljanz: Discontined due to recurrent papillary thyroid cancer Plaquenil: Did not tolerate She is currently maintained on methotrexate 4-5 pills per week and takes diclofenac for breakthrough joint pain. She also has a secondary osteoarthritis on top of her rheumatoid arthritis. Currently she states that she is doing overall well does not have any prolonged morning stiffness but has frequent flares of her disease requiring her to take diclofenac. 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 History of radioactive iodine thyroid ablation History of hyperparathyroidism Postoperative hypothyroidism Vitamin D deficiency Thyroid cancer Type 2 diabetes mellitus with hyperglycemia Hypothyroid Obesity (BMI 30-39.9) Parotitis History of thyroid cancer Rheumatoid arthritis Hypercholesterolemia Hypertension Insomnia Surgical History History of hysterectomy History of hysteroscopy History of thyroid surgery History of parathyroid surgery H/O wrist surgery History of tonsillectomy History of section Family History Father CAD (coronary artery disease) Mother Dementia CAD (coronary artery disease) Sister Breast cancer Depression Social History Housing: House Are you a primary laboratory animal care veterinarian to a significant other at home: No Do you presently have visiting nurse or other home services: No Alcohol intake: current Alcohol intake frequency: holidays/special occasions only Patient Tobacco Use Status: Never used Tobacco Tobacco use type: Cigarette e-Cigarette/Vaping Use: Never Used Second Hand Smoke Exposure: No service: No Current occupational status: employed Current occupational exposures/hazards: No Cognitive needs: No Hearing needs: No Vision needs: Yes Female Reproductive History Menstrual Age of Menarche: 12 Review of Systems Const Details: Review of Systems Constitutional: Denies fever, chills, weight loss ENT: Denies vision changes, eye pain or eye redness, dental caries, dry mouth GI: Denies nausea, vomiting, diarrhea, abdominal pain, change in BM Pulm: Denies SOB, WU, hemoptysis, wheezing Cards: Denies chest pain, palpitations Skin: Denies Raynaud's, rash, nail changes, photosensitivity, LUMBER SORTER: Denies headaches, weakness, paresthesias, recurrent falls MSK: as per HPI All other systems reviewed and are unremarkable except noted above Physical Exam Vital Signs: Last Vital Signs Pulse 77 03/18/24 07:38 BP 124/70 03/18/24 07:38 Pulse Ox 97 03/18/24 07:38 Oxygen Delivery Method Room Air 03/18/24 07:38 BMI result Body Mass Index 29.7 Vital signs reviewed Physical Examination CONSTITUITIONAL Patient alert and cooperative. Well appearing and in no apparent painful distress HEENT Conjunctiva and sclera clear. ?Pupils equal round and reactive to light. ?No lymphadenopathy. ?Normal dentition. No oral or nasal ulcers noted. No evidence of discoid rash to the marianela of ears CHEST/RESPIRATORY SYSTEM Normal respiratory effort and able to speak in complete sentences. ?Clear to auscultation bilaterally. ?No crackles, rales, rhonchi, wheezes heard. CARDIAC SYSTEM Regular rate and rhythm. ?S1 and S2 heard no murmurs. ?Radial pulses intact bilaterally MSK Hands: ?Good ranch helper strength bilaterally - 5/5. [place]ter-neck deformity noted to the left 5th digit but this was reducible. Ulnar deviation noted to bilateral hands at the MCP joints for this was also reducible. Synovitis noted to the MCPs 2nd to the 5th bilaterally. Wrists: ?Full range of motion at the wrists without pain. ?Tenderness to palpation of bilateral wrists right worse than left Elbows: Full range of motion without pain. No tenderness, weakness, swelling, increased warmth or erythema. Shoulders: Full range of motion without pain. Tenderness to palpation of bilateral AC joints Hips: Full range of motion without pain. Hip bursa: No tenderness to palpation Knees: ?Full range of motion. ?No tenderness, swelling, increased warmth or erythema.?No effusion or crepitations Ankles: Full range of motion. ?No tenderness, swelling, increased warmth or erythema.? Feet: ?Negative squeeze test. ?No tenderness to palpation or swelling of the MTPs. SKIN Skin intact without rashes. Results Reviewed Results Reviewed: Laboratory Tests 12/19/23 03/09/24 08:41 08:03 WBC 5.1 RBC 4.83 Hgb 15.1 Hct 44.5 Plt Count 179 ESR 9 Sodium 137 Potassium 4.7 Chloride 109 H Carbon Dioxide 23 BUN 29 H Creatinine 1.46 H Estimated GFR 36 Total Bilirubin 0.4 AST 16 ALT 16 Alkaline Phosphatase 91 C-Reactive Protein 0.66 H Total Protein 6.9 Hepatitis A IgM Ab Nonreactive Hep Bs Antigen Negative Hep Bs Antibody NONREACTIVE Hep B Core Total Ab Nonreactive Hepatitis C Ab (EIA) Nonreactive XR Feet 12/2023 FINDINGS (Right): Examination appears stable from previous. No fracture, no focal bony lesions. There is osteopenia. Inflammatory appearing joint disease with periarticular erosions, moderate to severe in appearance, involving the MTP joints predominantly with periarticular erosions, joint space loss, and remodeling of the predominantly second and fifth MTP joints. There is lateral deviation of the proximal phalanges in relation to the metatarsals. Moderate to severe hallux valgus with evidence of prior osteotomy and 2 screws within the distal first metatarsal. The midfoot and hindfoot demonstrate a moderate-sized plantar calcaneal spur. They are otherwise normal in appearance without significant arthropathy. Overall the appearance of the foot appears stable without definite progression of disease. No soft tissue abnormalities. FINDINGS (Left): Examination appears stable from previous. No fracture, no focal bony lesions. There is osteopenia. Inflammatory appearing joint disease with periarticular erosions, moderate to severe in appearance, involving the MTP joints predominantly with periarticular erosions, joint space loss, and remodeling of the predominantly second, third, and fifth MTP joints. There is lateral angulation of the proximal phalanges in relation to the metatarsals. Moderate to severe hallux valgus with evidence of prior osteotomy and 2 screws within the distal first metatarsal. Stable appearance. The midfoot and hindfoot demonstrate a smallb-sized plantar calcaneal spur. They are otherwise normal in appearance without significant arthropathy. Overall the appearance of the foot appears stable without definite progression of disease. No soft tissue abnormalities. XR Hands/Wrists 12/2023 FINDINGS (Right): There is osteopenia. There is no acute fracture or dislocation. No focal bony abnormalities. Fixated distal radial fracture with plate and screws, without complication evident. Nonunion of old healed navicular fracture. Stable and unchanged moderate to severe narrowing of the radiocarpal joint, with subtle erosions in the proximal scaphoid and navicular bones. There is volar tilt of the lunate suggesting VISI. Mild to moderate joint space loss with periarticular erosions in the predominantly second and third MTP joints. Interphalangeal joints appear relatively spared. Overall appearance is unchanged. There is no discrete soft tissue abnormality. FINDINGS (Left): There is osteopenia. There is no acute fracture or dislocation. No focal bony abnormalities. Old healed distal radial fracture, without complication evident. Nonunion of old healed navicular fracture. Stable and unchanged severe narrowing of the radiocarpal joint, with subtle erosions in the proximal scaphoid and navicular bones. Increased scapholunate interval consistent with early changes of SLAC wrist. There is volar tilt of the lunate suggesting VISI. Mild to moderate joint space loss with periarticular erosions in the predominantly first and second MTP joints. Interphalangeal joints appear relatively spared. Overall appearance is unchanged. There is no discrete soft tissue abnormality. XR C-spine flex/ext 12/2023 FINDINGS: There is a mild dextroconvex scoliosis, apex at C4. There is straightening of the normal lordosis. Diffuse osteopenia. There is no acute fracture or suspicious focal bone lesion. There is a 3 mm degenerative anterolisthesis of C3 on C4, and minimal 2 mm anterolisthesis of C4 on C5. Severe disc degeneration present C5-6 and C6-7, with endplate sclerosis, severe disc space loss, and marginal osteophytes. Milder disc degenerative changes at the other levels. Facet degeneration and hypertrophy present at multiple levels, most significant on the left at C2-3, C3-4, and C4-5. Atlantoaxial joint is intact with mild to moderate arthritic change. No basilar invagination. Craniocervical junction is intact. Flexion and extension views demonstrate mild increase in the anterolisthesis at C3-4 to 4 mm (from 3 mm). No change in the anterolisthesis C4 on C5. No additional worsening or developing subluxation. There is no prevertebral soft tissue abnormality. Right left carotid bulb calcification. Imaged lung apices are mildly hyperlucent but clear. MRI C-spine 12/2023 FINDINGS: Alignment: There is mid to upper cervical dextrocurvature, stable from previous x-rays, with mild head tilt to the left on current exam. There is 2.5 mm of anterolisthesis at C3-C4 which is essentially stable from prior x-rays. There is trace anterolisthesis at C4-C5 which is also unchanged. There is lordotic reversal centered at C5-C6, slightly more evident on current study. Trace anterolisthesis at C7-T1 noted on current exam. Craniocervical Junction/C1-C2 Articulations: The atlantooccipital joints are intact and aligned. There is mild retrolisthesis at the left C1-C2 facet joint, likely positional. Visualized Intracranial/Extracranial Structures: Grossly unremarkable. Vertebral Bodies: Slight chronic loss of height noted anteriorly at C5, stable from previous x-rays. Otherwise, vertebral body heights are well maintained. Disc Spaces and Endplates: Severe disc volume loss noted at C5-C6 and C6-C7 with intradiscal degenerative signal changes, Schmorl's nodes and spondylosis. Minor anterior marginal endplate spurring at C4-C5. Bone Marrow: Minimal type I degenerative marrow signal change noted along the endplates at C6-C7. No suspicious marrow-replacing process or bone marrow edema. C2-C3: Normal annular contour. Minor ligamentum flavum thickening. No canal stenosis. Left-sided facet joint is ankylosed. No neural foraminal stenosis. C3-C4: Unroofing of the posterior disc margin is noted consistent with spondylolisthesis. Broad-based disc-osteophyte complex is noted with flattening of the ventral dural sac without cord impingement. Ligamentum flavum thickening is noted which flattens the dorsal thecal sac without cord impingement. There is associated rjcw-nl-kdsfasej central spinal canal stenosis. There is uncovertebral spurring bilaterally with severe left-sided facet joint arthropathy, with moderate left-sided neural foraminal stenosis. C4-C5: Trace unroofing of the posterior disc margin with minimal central disc protrusion without cord impingement. Ligamentum flavum thickening is noted with flattening of the dorsal thecal sac. Mild canal stenosis is noted. There is oopcbnma-sb-zhmvqt left-sided facet joint arthropathy and mild uncinate process spurring with swty-lc-hwiakehp left-sided neural foraminal stenosis. C5-C6: Broad-based central disc protrusion noted superimposed on posterior endplate spurring, with effacement of the ventral thecal sac and moderate ventral cord deformity centrally and asymmetric to the right consistent with cord impingement. There is associated moderate central spinal canal stenosis. There is uncovertebral spurring bilaterally with mild facet joint arthropathy with trveutqj-rl-miwqsh bilateral neural foraminal stenosis. C6-C7: Broad-based concentric disc bulging and jwnu-pt-[id number] flattening of the ventral dural sac noted without cord impingement. Djeq-ob-cbrbusxy canal stenosis is noted. There is uncovertebral spurring and ligamentum flavum thickening with moderate right-sided neural foraminal stenosis. C7-T1: No disc herniation or canal stenosis. Mild right-sided facet joint arthrosis. No neural foraminal stenosis. There is a central extruded disc herniation with mild cephalad and caudal migration noted at T2-T3 without cord impingement or significant canal stenosis. Small right paramedian disc protrusion at T3-T4. Spinal Cord: The cervical and visualized upper thoracic spinal cord is normal in signal intensity throughout, without focal lesion, edema or syrinx. Extracranial Soft Tissues: The visualized extracranial head/neck soft tissues are unremarkable within the limitations of the study. Signal voids are noted within the visualized major neck vessels. IMPRESSION: 1. Cervical dextroscoliosis, with anterolisthesis at C3-C4, C4-C5 and C7-T1 with lordotic reversal centered at C5-C6, as discussed above. 2. Severe discogenic degenerative changes at C5-C6 and C6-C7 with spondylosis and disc-osteophyte complex at C3-C4 with vnwf-cq-koavmcfj spinal canal stenosis, disc protrusion at C5-C6, and disc bulging at C6-C7 with moderate spinal canal stenosis at C5-C6 with moderate ventral cord deformity asymmetric to the right consistent with cord impingement. Disc bulging at C6-C7 with hwor-ma-vdygswdv spinal canal stenosis. 3. Multilevel bilateral DJD with multilevel bilateral neural foraminal stenosis, as detailed by level above. 4. Central extruded disc herniation at T2-T3 without cord impingement. Small right paramedian disc protrusion at T3-T4. Assessment & Plan Assessment & Plan (1) Rheumatoid arthritis: Comment: Diagnosed in her 20s Methotrexate: currently maintained onn 4-5 pills per week due to LFTs derangements Infliximab: Stopped due to change in Physician Humira: Self discontinued due to burning at injection site Xeljanz: Discontinued due to recurrent papillary thyroid cancer Plaquenil: Did not tolerate Code(s): M06.9 - Rheumatoid arthritis, unspecified Category: Medical Qualifiers: Rheumatoid arthritis location: multiple sites Rheumatoid factor presence: with rheumatoid factor Qualified Code(s): M05.79 - Rheumatoid arthritis with rheumatoid factor of multiple sites without organ or systems involvement Plan: #Seropositive Erosive RA Patient with seropositive erosive rheumatoid arthritis. Repeat x-rays done 12/12 showed that her erosions are stable and there has not been any progression. Patient has been on leflunomide for 3-4 months. The today she is having worse name of her rheumatoid arthritis with more evidence of synovitis as compared to her last visit. Had a long discussion with the patient about methotrexate use in the setting of CKD and the decision was made to restart methotrexate at 4 pills per week since this was doing well for her in the past. 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 Limit alcohol and avoid Bactrim ? Monitoring: ?CBC, BMP, LFTs every 3-4 months and hepatitis serologies as needed Plan I spent 40 minutes reviewing the record and labs, taking a history, examining the patient, discussing the treatment plan and documenting in the medical record Orders: Orders Complete Blood Count Auto Diff 3 Months - Rheumatoid arthritis with rheumatoid factor of multiple sites without organ or systems involvement Comprehensive Met. Panel 3 Months - Rheumatoid arthritis with rheumatoid factor of multiple sites without organ or systems involvement C Reactive Protein 3 Months - Rheumatoid arthritis with rheumatoid factor of multiple sites without organ or systems involvement Erythrocyte Sedimentation Rate 3 Months - Rheumatoid arthritis with rheumatoid factor of multiple sites without organ or systems involvement Medications: New methotrexate sodium 10 mg (4 x 2.5 mg) PO QWEEK 90 days 52 tabs 1RF M05.79 - Rheumatoid arthritis with rheumatoid factor of multiple sites without organ or systems involvement folic acid 1 mg PO DAILY 90 tabs 1RF M05.79 - Rheumatoid arthritis with rheumatoid factor of multiple sites without organ or systems involvement Discontinued leflunomide Discontinued Reason: Doctor's Order 20 mg (2 x 10 mg) PO DAILY 180 tabs 2RF M05.79 - Rheumatoid arthritis with rheumatoid factor of multiple sites without organ or systems involvement folic acid Discontinued Reason: Doctor's Order 1 mg PO DAILY 90 tabs 1RF Coding Level of Care Code Est Pt Level 5 (08065) Complex EM visit Add On G2211 Diagnoses Rheumatoid arthritis involving multiple sites with positive rheumatoid factor M05.79 Rheumatoid arthritis location: multiple sites Rheumatoid factor presence: with rheumatoid factor 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
== END | disposition home or self-care (01) ==
PROVIDERS: PCP Internal Medicine; Visit Provider Student in an Organized Health Care Education/Training Program
CPT/HCPCS: 99215

== ENCOUNTER 2024-04-01 13:23 | Outpatient (AMB) | payer OTHER, SELFPAY ==
[2024-04-01 13:25] VITALS: BMI 29.4
--- NOTE | 2024-04-01 13:25 | MHC.OFFVIS ---
Vital Signs 04/01/24 13:25 Height 5 ft 2.5 in Weight 163 lb 8 oz BMI 29.4 BMI Reason not done Patient refused/unable Comment Weight stated by pt Intake Visit Reasons: hernia Intake Note: This patient was referred by Dr. Victor for hernia. Pt c/o; supraumbilical region, no pain or discomfort, reports heartburn, no changes to bowel habits. Manager Maritime Required: No Accompanied by: Self / Same As Patient Allergies ciprofloxacin [Cipro] Allergy (Unknown, Verified 04/01/24 13:36) rash amlodipine Adverse Reaction (Intermediate, Verified 04/01/24 13:36) swelling Medication List - Last Reconciled 04/01/24 by Jaison Frank MD blood sugar diagnostic ([employer] Verio test strips) test once daily cholecalciferol (vitamin D3) 125 mcg PO .2x /week diclofenac sodium 37.5 mg (1/2 x 75 mg) PO BID empagliflozin (Jardiance) 25 mg PO DAILY folic acid 1 mg PO DAILY glimepiride 2 mg PO DAILY 90 days levothyroxine 112 mcg PO DAILY 90 days lisinopril 10 mg PO DAILY metformin 500 mg PO BID methotrexate sodium 10 mg (4 x 2.5 mg) PO QWEEK 90 days misoprostol 200 mcg PO BID norethindrone acetate 5 mg PO DAILY simvastatin 10 mg PO BEDTIME sitagliptin phosphate (Januvia) 50 mg PO DAILY 90 days triamcinolone acetonide (Nasacort Allergy) 2 sprays intranasal DAILY zolpidem (Ambien) 10 mg PO BEDTIME PRN 90 days HPI HPI hernia: Details: [age] year female referred for possible hernia of the abdominal wall. She says she has felt this ?lump? for about 6-8 months. She says that this started up she had been vomiting at that time. She feels that the hernia has increased in size significantly and has been causing discomfort. Therefore wants this repaired She denies GI complaints at this time She has a history of hysterectomy for large fibroids. She had thyroidectomy twice for thyroid cancer. She has a known diabetic but says her hemoglobin A1c is around 7. 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 History of radioactive iodine thyroid ablation History of hyperparathyroidism Postoperative hypothyroidism Vitamin D deficiency Thyroid cancer Type 2 diabetes mellitus with hyperglycemia Hypothyroid Obesity (BMI 30-39.9) Parotitis History of thyroid cancer Rheumatoid arthritis Hypercholesterolemia Hypertension Insomnia Surgical History History of hysterectomy History of hysteroscopy History of thyroid surgery History of parathyroid surgery H/O wrist surgery History of tonsillectomy History of section Family History Father CAD (coronary artery disease) Mother Dementia CAD (coronary artery disease) Sister Breast cancer Depression Social History Housing: House Are you a primary medicare coordinator to a significant other at home: No Do you presently have visiting nurse or other home services: No Alcohol intake: current Alcohol intake frequency: holidays/special occasions only Patient Tobacco Use Status: Never used Tobacco Tobacco use type: Cigarette e-Cigarette/Vaping Use: Never Used Second Hand Smoke Exposure: No service: No Current occupational status: employed Current occupational exposures/hazards: No Cognitive needs: No Hearing needs: No Vision needs: Yes Female Reproductive History Menstrual Age of Menarche: 12 Review of Systems Const Denies chills and Denies fever(s) Card Denies chest pain, Denies dyspnea and Denies dyspnea on exertion Resp Denies cough, Denies dyspnea and Denies dyspnea on exertion GI Denies hematochezia and Denies change in bowel habits Denies hematuria Musc Denies back pain and Denies limited range of motion Neuro Denies focal weakness and Denies convulsions Psych Denies depression and Denies mood swings Physical Exam Const General: comfortable and no acute distress Orientation/consciousness: patient oriented x3 Neck Neck: Yes no lymphadenopathy Resp Auscultation: clear to auscultation bilaterally Cardio Rhythm: regular rhythm GI Other: Vague hernia, on the epigastric area above the umbilicus, maybe about 3 cm fascial defect, slightly tender, partially reducible Palpation (GI): Soft to palpation, nontender and no guarding Neuro General: patient oriented x3 Assessment & Plan Assessment & Plan (1) Abdominal wall hernia: Code(s): K43.9 - Ventral hernia without obstruction or gangrene Category: Medical Plan: She has what appears to be an abdominal wall hernia in the epigastric area. This seems to be partially reducible. The defect seemed to be about 3 cm but I will order for a CAT scan to define this further I did explain to her the technique of hernia repair with possible mesh. I explained the risks including but not limited to bleeding, infections, injury to other organs including bowel, recurrence, postop pain, as well as the benefits and alternatives. She says she wants to proceed Her hemoglobin A1c is around 7 at this time. Orders: Orders CT abdomen pelvis wo IV con Today K43.9 - Ventral hernia without obstruction or gangrene Coding Level of Care Code New Pt Level 3 (97504) Diagnoses Abdominal wall hernia K43.9
--- OUTSIDE RECORDS SUMMARY | 2024-04-01 14:18 | XMS_ITS | Encounter Summary ---
Author Organization [facility] Address [address] [place] [address] Care Team Providers Care Tire Repairman Name Role Phone Barbara Victor Primary Care Provider [phone] Encounter Details Date Type Department Care Team (Late st Contact Info) Description 03/25/2016 Orders Only [facility] [address] [address] 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 MD [address] [place] [id number] Social History Tobacco Use Types Packs/Day Years [...] on filedocumented in this encounter Care Teams Tire Repairman Relationship Specialty Start Date End Date Barbara Victor [address] [place] [address] [place] [address] PCP - General Internal Medicine 06/24/17 documented as of this encounter
--- OUTSIDE RECORDS SUMMARY | 2024-04-01 14:18 | XMS_ITS | Patient Health Record ---
Author Organization [facility] Address [address] [place] [address] Care Team Providers Care Microbiology Coordinator Name Role Phone Barbara Victor Primary Care Provider Sergio Montelongo Unavailable [phone] Allergies Allergen (clinical drug ingredient) Drug/Non Drug Allergy documented on EMR Reaction Allergy Type Onset Date Status ciprofloxacin Cipro rash Drug Allergy Act danielle Levaquin rash Drug Allergy Active Reason For Referral No Information Medications Medication [...] Vaccine Route Administration Date Status Comme nts Influenza Unknown 12/04/2021 Administered COVID-19 Pfizer BioNTech Vaccine Unknown 11/09/2020 Administered 1st 01/30/2021 2nd 02/21/2020 Social History Tobacco Use: Social History Observation [...] Type 2 diabetes mellitus with peripheral angiopathy (015014986) Type 2 diabetes mellitus with diabetic peripheral angiopathy without gangrene (E11.51) Active confirmed Vital Signs Blood pressure diastolic 70 mm Hg 01/30/2024 Height 5ft 2.5in in 01/30/2024 Blood pressure systolic 120 mm Hg 01/30/2024 Weight 164 lbs 01/30/2024 BMI 29.51 kg/m2 01/30/2024 Procedures Procedure Date Ordered Date Performed Result Body Sit e 01062-ALXYUKH NAIL, 6 OR MORE 05/13/2023 N/A 44986-WHBE SKIN LESIONS, OVER 4 05/13/2023 N/A 00439-KQQHOCZ NAIL, 6 OR MORE 07/15/2023 N/A 25115-SKGJ SKIN LESIONS, OVER 4 07/15/2023 N/A 10063-VARFZUV NAIL, 6 OR MORE 09/23/2023 N/A 43245-GIWI SKIN LESIONS, OVER 4 09/23/2023 N/A 37449-CPCHNGB NAIL, 6 OR MORE 11/25/2023 N/A 45776-PIYQ SKIN LESIONS, OVER 4 11/25/2023 N/A 49567-ILUYXEK NAIL, 6 OR MORE 01/30/2024 N/A 07513-NYNX SKIN LESIONS, OVER 4 01/30/2024 N/A Encounters Encounter Location Date Provider Diagnosis [address] [address] 05/13/2023 Sergio Helena Type 2 diabetes mellitus with diabetic peripheral angiopathy without gangrene E11.51 ; Tinea unguium B35.1 ; Pain in right toe(s) M79.674 and Pain in left toe(s) M79.[address] [address] 07/15/2023 Sergio Helena Type 2 diabetes mellitus with diabetic peripheral angiopathy without gangrene E11.51 ; Tinea unguium B35.1 ; Pain in right toe(s) M79.674 and Pain in left toe(s) M79.[address] [address] 09/23/2023 Sergio Helena Type 2 diabetes mellitus with diabetic peripheral angiopathy without gangrene E11.51 ; Tinea unguium B35.1 ; Pain in right toe(s) M79.674 and Pain in left toe(s) M79.[address] [address] 11/25/2023 Sergio Helena Type 2 diabetes mellitus with diabetic peripheral angiopathy without gangrene E11.51 ; Tinea unguium B35.1 ; Pain in right toe(s) M79.674 and Pain in left toe(s) M79.[address] [address] 01/30/2024 Sergio Helena Type 2 diabetes mellitus with diabetic peripheral angiopathy without gangrene E11.51 ; Tinea unguium B35.1 ; Pain in right toe(s) M79.674 and Pain in left toe(s) M79.[address] [address] 11/25/2023 Sergio Helena Assessments Encounter Date Diagnosis (ICD Code) Assessment Notes Treatment Notes Treatment Clinical Notes Section Notes 05/13/2023 Type 2 diabetes mellitus with diabetic [...] toe(s) (ICD-10 - M79.674) 09/23/2023 Pain in left toe(s) (ICD-10 - M79.675) 07/15/2023 Pain in left toe(s) (ICD-10 - M79.675) 05/13/2023 Pain in left toe(s) (ICD-10 - M79.675) 11/25/2023 Pain in left toe(s) (ICD-10 - M79.675) 01/30/2024 Pain in left toe(s) (ICD-10 - M79.675) 05/13/2023 Other 07/15/2023 Other 09/23/2023 Other 11/25/2023 Other 01/30/2024 Other Plan Of Treatment Pending Test Test Name Order Date 28196-SPPLCFX NAIL, 6 OR MORE 12/10/2019 05166-HUJTLKO NAIL, 6 OR MORE 02/29/2020 00196-FAQOGUA NAIL, 6 OR MORE 05/30/2020 48430-SQVDNRT NAIL, 6 OR MORE 08/29/2020 40908-TXKNDPL NAIL, 6 OR MORE 11/28/2020 79574-DYBYRND NAIL, 6 OR MORE 03/06/2021 22273-CXCIKTS NAIL, 6 OR MORE 06/08/2021 79122-SPUXURQ NAIL, 6 OR MORE 09/11/2021 23596-XXVFHWP NAIL, 6 OR MORE 12/11/2021 27809-VTIHKIS NAIL, 6 OR MORE 02/15/2022 14287-HDXDCJY NAIL, 6 OR MORE 05/28/2022 82937-KEUESJW NAIL, 6 OR MORE 08/16/2022 33569-RFLIZIL NAIL, 6 OR MORE 11/05/2022 13961-ECSCAIH NAIL, 6 OR MORE 01/07/2023 96081-FUPTDXR NAIL, 6 OR MORE 03/11/2023 81177-VVKVGIP NAIL, 6 OR MORE 05/13/2023 38494-IJLHYXA NAIL, 6 OR MORE 07/15/2023 24289-NBXQYJL NAIL, 6 OR MORE 09/23/2023 88697-MEICPCI NAIL, 6 OR MORE 11/25/2023 50283-XNPTBEV NAIL, 6 OR MORE 01/30/2024 18939-TWES SKIN LESIONS, OVER 4 01/30/20 24 58425-XHIK SKIN LESIONS, OVER 4 11/25/19 24 97874-GJQO SKIN LESIONS, OVER 4 09/23/19 24 34505-OZXC SKIN LESIONS, OVER 4 07/15/19 24 03145-TEEB SKIN LESIONS, OVER 4 05/13/19 24 56643-ZVAQ SKIN LESIONS, OVER 4 03/11/19 24 79881-VINI SKIN LESIONS, OVER 4 01/08/20 23 28682-LPQY SKIN LESIONS, OVER 4 11/06/19 23 27553-KYGA SKIN LESIONS, OVER 4 08/17/19 23 07177-DNFI SKIN LESIONS, OVER 4 05/29/19 23 06595-INMS SKIN LESIONS, OVER 4 02/15/19 23 80712-JQKO SKIN LESIONS, OVER 4 12/12/19 12676-YWZF SKIN LESIONS, OVER 4 09/12/19 99257-LHCQ SKIN LESIONS, OVER 4 06/09/19 35884-QPCE SKIN LESIONS, OVER 4 03/06/19 95148-TEKG SKIN LESIONS, OVER 4 11/29/19 14830-TCPG SKIN LESIONS, OVER 4 08/30/19 36628-ZJHT SKIN LESIONS, OVER 4 05/31/19 23437-NTZJ SKIN LESIONS, OVER 4 02/28/19 07218-DAMH SKIN LESIONS, OVER 4 12/10/19 Next Appt Details Provider Name:Sergio Malik , 04/02/2024 08:45:00 AM, [address] [place] [address], [phone], Provider Name:Sergio Malik , 06/11/2024 08:45:00 AM, [address] [place] [address], [phone], Insurance Providers Payer Name Payer Address Payer Phone Subscriber Number Group Number Insured Name Patient Relationship to Insured Coverage Start Date Coverage End Date [employer] [address] [address] [place] [address] [id number] Joanna Tse Self - patient is the insured Medical (General) History Medical History History ICD Code Rheumatoid Arthritis Cancer - Thyroid High blood pressure Rheumatic fever Chicken pox Bone implants/screws CAD type II diabetes Surgical History Surgery Date(Month/Year) Thyroid Surgery 04/26,11/09/21 Broken wrist 05/25 bunion Surgery 2008 1984,1986 Right quad rupture repair 07/23/23 hysterectomy 06/09/2023
--- OUTSIDE RECORDS SUMMARY | 2024-04-01 14:18 | XMS_ITS | Clinical Summary ---
Author Organization [facility] Address [address] [id number] Care Team Providers Care National Park Ranger Name Role Phone Anderson Sanchez Primary Care Provider [phone] Allergies No known active allergies Medications Diclofenac-Mis [...] complete this topic Zoster (Zostavax) Discontinued Insurance [facility] FEE FOR SERVICE PPO * Guarantor: JAV[employer] T[employer] Account Type Relation to Patient Date of Phone Billing Address [employer] [address] [place] [address] [employer]ESS Care Teams National Park Ranger Relationship Specialty Start Date End Date Anderson Sanchez [address] [address] PCP - General Rheumatology 06/10/12
--- OUTSIDE RECORDS SUMMARY | 2024-04-01 14:18 | XMS_ITS | Clinical Summary ---
Author Organization [facility] Address [address] [place] [address] Care Team Providers Care Rim Fire Priming Tool Setter Name Role Phone ValenteBarbara Katelynn Primary Care Provider [phone] Allergies Active Allergy Reactions Criticality Noted Date [...] in February. 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 Problems Problem Noted Date Diagnosed Date Resolved Date Hyperkalemia 04/08/2019 02/08/2020 High risk medication use 12/31/2016 Primary hyperparathyroidism 11/29/2015 11/30/2016 Immunizations Immunization Administration Dates Next Due Influenza, Injectable, Quadr [...] Lung Cancer Screening (Baseline) 08/13/2009 Pneumococcal Vaccine: 50+ Years (3 of 3 - PCV) 12/27/2015 12/26/2014, 11/16/2014 Pneumococcal Vaccine: Pediatric (0-5 Years) and At-Risk Patients (6-50 Years) (3 of 3 - PCV) 12/27/2015 [...] complete this topic Procedures * Due to [place] [employer] law, this organization might not be sharing negative HIV tests. Procedure Name Priority Date/Time Associated Diagnosis Comments MICROALBUMIN, RANDOM URINE WITH CREATININE Routine 01/24/2020 9:14 AM EST Stage 3b chronic kidney disease BASIC METABOLIC PANEL, OUTSIDE LAB Routine 08/30/2019 HEMOGLOBIN A1C Routine 05/28/2017 3:55 PM EDT Type 2 diabetes mellitus without complication, without long-term current use of insulin ([facility]) DIABETES EYE EXAM Routine 07/31/2016 9:16 AM EDT MAMMOGRAPHY Routine 05/15/2016 12:00 AM EDT PAP W/HPV, CONVERSION Routine 06/17/2014 10:55 AM EDT HEPATITIS C ANTIBODY W/REFLEX TO HCV RNA, QUANTITATIVE PCR Routine 03/03/2014 2:31 PM EST from Last 3 Months or Most Recently Relevant to Health Maintenance Results * Due to [place] [employer] law, this organization might not be sharing negative HIV tests. * (ABNORMAL) Microalbumin/Creatinine Urine Ratio, Random (01/24/2020 9:14 AM EST) Microalbumin, Urine 5.0 mg/dL 01/24/2020 11:04 AM EST [facility] Creatinine, Urine 23 15 - 278 mg/dL 01/24/2020 11:04 AM EST [facility] Microalb/Creat Ratio, Random Urine 217.4(H) <30.0 mcg/mgCr 01/24/2020 11:04 AM EST [facility] Comment: Microalbumin Reference Range: Normal ? <30 mcg/mg Creatinine Microalbuminuria ? 30-300 mcg/mg Creatinine Clinical Albuminuria >300 mcg/mg Creatinine Reference: ADA Guideline. Diabetes Care. 2004;27 (suppl 1) Urine Voided urine specimen / Unknown Non-Blood Collection / Unknown 01/24/2020 9:14 AM EST 01/24/2020 10:30 AM EST us Meaghan Ziegler MD LAB URINE ORDERABLES Final Res ult [facility] [address] [place] [address], * (ABNORMAL) Basic Metabolic Panel, Outside Lab (08/30/2019) Potassium 4.9 Creatinine 1.45(H) mg/dL eGFR Non- 37(L) Blood Structure of peripheral vein / Unknown 08/30/2019 us Unknown Provider LAB BLOOD ORDERABLES Final R esult * (ABNORMAL) Hemoglobin A1c (05/28/2017 3:55 PM EDT) Hemoglobin A1C 7.6(H) <5.7 % of total Hgb 05/28/2017 10:49 PM EDT Anevia Comment: For someone without known diabetes, a [...] (MG/DL) 171 (calc) 05/28/2017 10:49 PM EDT [facility] eAG (MMOL/L) 9.5 (calc) 05/28/2017 10:49 PM EDT [facility] Blood specimen (specimen) Structure of peripheral vein / Unknown Venipuncture / Unknown 05/28/2017 3:55 PM EDT 05/28/2017 4:30 PM EDT Narrative [facility] 05/28/2017 10:49 PM EDT [facility] Received Date:[id number] Jose Manuel Bell MD LAB BLOOD ORDERABLES Final Re sult Performing Organization Address City/[facility]/ZIP Co de Phone Number [address], [place] [address], [facility] [address], [place] [address], [place] [phone] * DIABETES EYE EXAM (07/31/2016 9:16 AM EDT) Eye Exam 25Jul2016 [facility] MANUAL RESULTS 07/31/2016 9:16 AM EDT Benita Napier MD HEALTH MAINTENANCE Final Resul t [facility] MANUAL RESULTS * MAMMOGRAPHY (05/15/2016 12:00 AM EDT) Mammogram Benign/ there are scattered areas of fibroglandular density . No significant change from prior study 2 OUTSIDE LABORATORY Anatomical Region Laterality Modality Other 05/15/2016 us Historical Conversion Provider HEALTH MAINTENANC E Final Result * Pap w/HPV (06/17/2014 10:55 AM EDT) Path Procedure TPGAS (683214) 1 ?? HPVHR(352129) 1 ?? Edited by: [id number] ?? [id number] [facility] - [facility] Specimen Labeled As: 1 CERVICAL/ENDOCERVI MAKAYLA CYTO MATERIAL - Edited by: [id number] HUGHJO [id number] [facility] - [facility] Additional Test Information Specimens were tested for high risk HPV using the FDA approved Digene Hybrid ?? Capture II kit, in the Diagnostic Molecular Oncology Lab at [facility] ?? Health Care. ??This test can [...] abnormality. ??We endorse the recommendations of the [place] Society for ?? Colposcopy and Cervical Pathology [...] complexity clinical laboratory testing. ?? Edited by: [id number] [facility] - [facility] Diagnosis ThinPrep Pap Test ? Adequacy: Satisfactory for evaluation ? Interpretation: Negative for Intraepithelial Lesion or Malignancy ? Remarks/Recommenda tions: ?? This is the result of a morphological screening test with an inherent ?? possibility of a false negative interpretation. ?? This Pap test was examined in accordance with the [facility] Cytopathology ?? Laboratory written policy, which incorporates all CLIA mandates. Screening ?? guidelines can be found in Am J Clin Pathol 2012;137:516-542. ??We endorse the ?? practice guidelines developed by ASCCP and published in the Journal Lower ?? Genital Tract Disease 17(5):S1-S27 (2013). ? This Pap test was examined by the ThinPrep Imaging System, [employer] ?? Incorporated, [place], [place]. ?- High risk HPV DNA subtypes: NEGATIVE ?? Edited by: [id number] - 2078 -SCRPT6 ?? [id number] - 8652 [place] [facility] - [facility] Gynecologic Clinical Data Specimen source:, THINPREP (CERVICAL AND ENDOCERVICAL) [facility] - [facility] Gynecologic Clinical Data Gynecologic findings:, POST MENOPAUSAL [facility] - [facility] Pathology Codes Client Order Code:, TPHGS3 [facility] - [facility] Pathology Codes Bill Type:, 3RD [employer] [facility] - [facility] Completed Report [id number] HPV, HIGH RISK TYPES 1 [facility] - [facility] Marker 1 TOR GOMES [facility] ANATOMIC PATHOLOGY - [facility] Marker 2 MD SHLOMO NEGATIVE [facility] ANATOMIC PATHOLOGY - [facility] Marker 3 NILM,NILM [facility]OM[facility] PATHOLOGY - [facility] Marker 4 RIM,RECEIVED IN MOLECULAR [facility] ANATOMIC PATHOLOGY - [facility] Marker 5 CRISTY GHOSH [facility] ANATOMIC PATHOLOGY - [facility] Cc Results To COMPA Bishop METAL FITTER ??[id number] ?? JOHNNY SIU ??[id number] [facility] - [facility] Signature REPORT SIGNED: TOR LAURA 06/29/14 [facility] - [facility] Sign Out Audit TAMIKO LAURAEN Rl [id number] FINAL [place] [id number] [facility] - [facility] Cytology / Unknown 5 10:55 AM EDT 06/20/2014 10:55 AM EDT Juliet Napier MD LAB HISTORICAL RESULT S Final Result [facility] - [facility] [address] [place] [address], * Hepatitis C Antibody w/Reflex to HCV RNA, Quantitative PCR (03/03/2014 2:31 PM EST) Hepatitis C Antibody NON-REACTI VE NON-REACT [facility] Signal To Cut-Off 0.06 <1.00 [facility] 03/03/2014 2:31 PM EST 03/03/2014 3:50 PM EST Jessi Garcia LAB BLOOD ORDERABLES Final Resul t [facility] from Last 3 Months or Most Recently Relevant to Health Maintenance Insurance [employer] Advance Directives Documents on File Type Date Recorded Patient Hospice Office Coordinator Expl anation Advance Directive 09/12/2014 12:00 AM [facility] dical Dec Making (Adv.Dir) Care Teams Rim Fire Priming Tool Setter Relationship Specialty Start Date End Date Barbara Victor [address] [facility] [address] [place]a [place], [place] [address] PCP - General Internal Medicine 06/24/17
--- OUTSIDE RECORDS SUMMARY | 2024-04-01 14:18 | XMS_ITS | Encounter Summary ---
Author Organization [facility] Address [address] [place] [address] Care Team Providers Care Internal Controls Specialist Name Role Phone ValenteBarbara Katelynn Primary Care Provider [phone] Reason for Visit * Reason Onset Date Comments Med Refill 03/30/2021 Encounter Details Date Type Department Care Team (Late st Contact Info) Description 03/30/2021 Telephone [facility] [address] [place] [address] Telephone Intake, Staff Med Refill Social History [...] not request PCP information rather they requested [facility] endo contact info and did not give a reason why. Since endo does not prescribe the med, nurse requested that pt call [facility] to resolve issue. * Telephone Encounter - [...] Pt of Dr. Franklin Almonte calling from [facility] This is her second attempt at trying to get a renewal for pt (Onglyza 5mg) Please call or fax to: Please: use reference #[id number] documented in this encounter Plan of Treatment Not on file documented as of this encounter Visit Diagnoses Not on filedocumented in this encounter Care Teams Internal Controls Specialist Relationship Specialty Start Date End Date Barbara Victor [address] [place] [address] dr [place]a [place], [place] [address] PCP - General Internal Medicine 06/24/17 documented as of this encounter
--- OUTSIDE RECORDS SUMMARY | 2024-04-01 14:18 | XMS_ITS | Referral Summary ---
Author Organization [facility] Address [address] [place] [address] Care Team Providers Care Crab Catcher Name Role Phone ValenteBarbara Katelynn Primary Care Provider [phone] Allergies Active Allergy Reactions Criticality Noted Date [...] in February. 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 Procedure Name Priority Date/Time Associated Diagnosis Comments MICROALBUMIN, RANDOM URINE WITH CREATININE Routine 01/24/2020 9:14 AM EST Stage 3b chronic kidney disease BASIC METABOLIC PANEL, OUTSIDE LAB Routine 08/30/2019 HEMOGLOBIN A1C Routine 05/28/2017 3:55 PM EDT Type 2 diabetes mellitus without complication, without long-term current use of insulin ([facility]) DIABETES EYE EXAM Routine 07/31/2016 9:16 AM EDT MAMMOGRAPHY Routine 05/15/2016 12:00 AM EDT PAP W/HPV, CONVERSION Routine 06/17/2014 10:55 AM EDT HEPATITIS C ANTIBODY W/REFLEX TO HCV RNA, QUANTITATIVE PCR Routine 03/03/2014 2:31 PM EST from Last 3 Months or Most Recently Relevant to Health Maintenance Results * Due to [place] [employer] law, this organization might not be sharing negative HIV tests. * (ABNORMAL) Microalbumin/Creatinine Urine Ratio, Random (01/24/2020 9:14 AM EST) Microalbumin, Urine 5.0 mg/dL 01/24/2020 11:04 AM EST [facility] Creatinine, Urine 23 15 - 278 mg/dL 01/24/2020 11:04 AM EST [facility] Microalb/Creat Ratio, Random Urine 217.4(H) <30.0 mcg/mgCr 01/24/2020 11:04 AM EST [facility] Comment: Microalbumin Reference Range: Normal ? <30 mcg/mg Creatinine Microalbuminuria ? 30-300 mcg/mg Creatinine Clinical Albuminuria >300 mcg/mg Creatinine Reference: ADA Guideline. Diabetes Care. 2004;27 (suppl 1) Urine Voided urine specimen / Unknown Non-Blood Collection / Unknown 01/24/2020 9:14 AM EST 01/24/2020 10:30 AM EST us Meaghan Ziegler MD LAB URINE ORDERABLES Final Res ult [facility] [address] [place] [address], [place] * (ABNORMAL) Basic Metabolic Panel, Outside Lab (08/30/2019) Potassium 4.9 Creatinine 1.45(H) mg/dL eGFR Non- 37(L) Blood Structure of peripheral vein / Unknown 08/30/2019 us Unknown Provider LAB BLOOD ORDERABLES Final R esult * (ABNORMAL) Hemoglobin A1c (05/28/2017 3:55 PM EDT) Hemoglobin A1C 7.6(H) <5.7 % of total Hgb 05/28/2017 10:49 PM EDT [employer] Comment: For someone without known diabetes, a [...] (MG/DL) 171 (calc) 05/28/2017 10:49 PM EDT [employer] eAG (MMOL/L) 9.5 (calc) 05/28/2017 10:49 PM EDT [employer] Blood specimen (specimen) Structure of peripheral vein / Unknown Venipuncture / Unknown 05/28/2017 3:55 PM EDT 05/28/2017 4:30 PM EDT Narrative [facility] - 05/28/2017 10:49 PM EDT [facility] Received Date:[id number] Jose Manuel Bell MD LAB BLOOD ORDERABLES Final Re sult [facility] [address] [facility] [address]rd [address], [place] [address], [place] [phone] [employer] [facility] [address] [facility] 3rd Floor, [place] [address], [place] [phone] * DIABETES EYE EXAM (07/31/2016 9:16 AM EDT) Eye Exam [id number] [facility] MANUAL RESULTS 07/31/2016 9:16 AM EDT Benita Napier MD HEALTH MAINTENANCE Final Resul t [facility] MANUAL RESULTS * MAMMOGRAPHY (05/15/2016 12:00 AM EDT) Mammogram Benign/ there are scattered areas of fibroglandular density . No significant change from prior study 2 OUTSIDE LABORATORY Anatomical Region Laterality Modality Other 05/15/2016 Historical Conversion Provider HEALTH MAINTENANC E Final Result * Pap w/HPV (06/17/2014 10:55 AM EDT) Path Procedure TPGAS ([id number]) 1 ?? HPVHR(692198) 1 ?? Edited by: [id number] JOI ?? [id number] - 1324 -SCRPT6 [facility] Specimen Labeled As: 1 CERVICAL/ENDOCERVI MAKAYLA CYTO MATERIAL - Edited by: [id number] [facility] - [facility] Additional Test Information Specimens were tested for high risk HPV using the FDA approved Digene Hybrid ?? Capture II kit, in the Diagnostic Molecular Oncology Lab at [facility] ?? Health Care. ??This test [...] abnormality. ??We endorse the recommendations of the [place] Society for ?? Colposcopy and Cervical Pathology [...] complexity clinical laboratory testing. ?? Edited by: [id number] - 1324 -SCRPT6 [facility] - [facility] Diagnosis ThinPrep Pap Test ? Adequacy: Satisfactory for evaluation ? Interpretation: Negative for Intraepithelial Lesion or Malignancy ? Remarks/Recommenda tions: ?? This is the result of a morphological screening test with an inherent ?? possibility of a false negative interpretation. ?? This Pap test was examined in accordance with the [facility] Cytopathology ?? Laboratory written policy, which incorporates all CLIA mandates. Screening ?? guidelines can be found in Am J Clin Pathol 2012;137:516-542. ??We endorse the ?? practice guidelines developed by ASCCP and published in the Journal Lower ?? Genital Tract Disease 17(5):S1-S27 (2012). ? This Pap test was examined by the ThinPrep Imaging System, [employer] ?? [employer]orporated, [place], [place]. ?- High risk HPV DNA subtypes: NEGATIVE ?? Edited by: [id number] - 0216 -SCRPT6 ?? [id number] - 1250 FERRAROLaurie [facility] - [facility] Gynecologic Clinical Data Specimen source:, THINPREP (CERVICAL AND ENDOCERVICAL) [facility] - [facility] Gynecologic Clinical Data Gynecologic findings:, POST MENOPAUSAL [facility] - [facility] Pathology Codes Client Order Code:, TPHGS3 [facility] - [facility] Pathology Codes Bill Type:, 3RD [employer] [facility] - [facility] Completed Report [id number] HPV, HIGH RISK TYPES 1 [facility] - [facility] Marker 1 TOR GOMES [facility] ANATOMIC PATHOLOGY - [facility] Marker 2 MD SHLOMO NEGATIVE [facility] ANATOMIC PATHOLOGY - [facility] Marker 3 NILM,NILM [facility] ANATOMIC PATHOLOGY - [facility] Marker 4 RIM,RECEIVED IN MOLECULAR [facility] ANATOMIC PATHOLOGY - [facility] Marker 5 CRISTY GHOSH-ANDI [facility] ANATOMIC PATHOLOG[facility] - [facility] Cc Results To COMPA Bishop RECREATION AIDE ??[id number] ?? JOHNNY SIU ??[id number] [facility]OLOG[facility] - [facility] Signature REPORT SIGNED: TOR LAURA 06/29/14 [facility]ATOMIC [facility]OLOG[facility] - [facility] Sign Out Audit TOR LAURA [id number] FINAL [place] [id number] [facility]ATOMIC PATHOLOGY - [facility] Cytology / Unknown 10:55 AM EDT 06/20/2014 10:55 AM EDT us Juliet Napier MD LAB HISTORICAL RESULT S Final Result [facility] - [facility] [address] [place] [address], [place] * Hepatitis C Antibody w/Reflex to HCV RNA, Quantitative PCR (03/03/2014 2:31 PM EST) Hepatitis C Antibody NON-REACTI VE NON-REACT [facility] Signal To Cut-Off 0.06 <1.00 [facility] 03/03/2014 2:31 PM EST 03/03/2014 3:50 PM EST [facility] LAB BLOOD ORDERABLES Final Resul t [facility] from Last 3 Months or Most Recently Relevant to Health Maintenance Insurance [place] [employer] Advance Directives Documents on File Type Date Recorded Patient Media Analytics Manager Expl anation Advance Directive 09/12/2014 12:00 AM [facility] dical Dec Making (Adv.Dir) Care Teams Crab Catcher Relationship Specialty Start Date End Date Barbara Victor [address] [place] [address] [place] [address] PCP - General Internal Medicine 06/24/17
--- OUTSIDE RECORDS SUMMARY | 2024-04-01 14:18 | XMS_ITS | Encounter Summary ---
Author Organization [facility] Address [address] [place] [address] Care Team Providers Care Education Nurse Name Role Phone Barbara Victor Primary Care Provider [phone] Encounter Details Date Type Department Care Team (Late st Contact Info) Description 09/24/2016 Orders Only [facility] [address] [address] 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 MD [address] [place] [address] Social History Tobacco Use Types Packs/Day Years [...] on filedocumented in this encounter Care Teams Education Nurse Relationship Specialty Start Date End Date Barbara Victor [address] [place] [address] [place] [address] PCP - General Internal Medicine 06/24/17 documented as of this encounter
--- OUTSIDE RECORDS SUMMARY | 2024-04-01 14:18 | XMS_ITS | Encounter Summary ---
Author Organization [facility] Address [address] [place] [address] Care Team Providers Care Tooth Cutter Name Role Phone Barbara Victor Primary Care Provider [phone] Encounter Details Date Type Department Care Team (Late st Contact Info) Description 07/02/2016 Orders Only [facility] [address] [address] 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 MD [address] [place] [address] Social History Tobacco Use Types Packs/Day Years [...] on filedocumented in this encounter Care Teams Tooth Cutter Relationship Specialty Start Date End Date Barbara Victor [address] [place] [address] [place] [address] PCP - General Internal Medicine 06/24/17 documented as of this encounter
--- OUTSIDE RECORDS SUMMARY | 2024-04-01 14:19 | XMS_ITS ---
Author Organization [facility] [place] Address [address] [place] [address] Care Team Providers Care Air Twister Winder Name Role Phone Barbara Victor Primary Care Provider Sergio Montelongo Unavailable [phone] Allergies Allergen (clinical drug ingredient) Drug/Non Drug [...] Ordered Date Performed Result Body Sit e 67768-BXEMFUL NAIL, 6 OR MORE 11/25/2023 N/A 16127-QEQQ SKIN LESIONS, OVER 4 11/25/2023 N/A Encounters Encounter Location Date Provider Diagnosis [facility] [address] [address] 11/25/2023 Sergio Malik Type 2 diabetes mellitus [...] Treatment Pending Test Test Name Order Date 23934-BFSDPIU NAIL, 6 OR MORE 11/25/2023 51452-JZXR SKIN LESIONS, OVER 4 11/25/19 24 Next Appt Details Follow Up: prn, Reason: Provider Name:Sergio Loounier , 04/02/2024 08:45:00 AM, [address] [place] [address], [phone], Provider Name:Sergio Malik , 06/11/2024 08:45:00 AM, [address] [place] [address], [phone], Procedure Notes * Category Sub-Category Detail [...] use of a nail nipper and/or dremel-type meat grinder, to a more viable healthy nail plate or bed tissue 6-10. Silver nitrate used for any petechial bleeding as necessary. Definitive antifungal treatment options have been reviewed and discussed with the patient. The patient chooses, no pharmaceutical tx - 15174 Keratoma Treatment Parring or Cutting o f Benign Hyperkeratotic Lesion(s) (-57) More than 4 Lesions - The Benign hyperkeratotic lesions, as described above were pared, and/or cut utilizing a sterile 15 blade, tissue nippers, and/or dremel - 58758 , Q8 Progress Notes * Joanna TSE MDOB:1960 (63 yo F)Acc No.[id number]:11/25/2023 Progress Note Patient:?Joanna Tse Provider:?Sergio Malik DPM :1960???Age:63 Y???Sex:Female D ate:11/25/2023 Address:[address] [place], [place] [id number] Pcp:Barbara Victor Subjective: * Chief Complaints: * [...] ?Exercise: yes, walking. ?Marital status: . ?Occupation: [employer]. * Medications:?TakingamLODIPin e Besylate Diclofenac-miSOPROStol 75-0.2 MG [...] - M79.675? Plan: * Treatment: 2.?Tinea unguium?Procedure: 26173-NHLXXRV NAIL, 6 OR MORE * Procedures:?Debride Nail 6-10:?Nail debridement?Performance of this nail treatment by a nonprofessional would put this patients foot and overall health at risk. Therefore, nail debridement was performed extensively to reduce/remove overall nail length, girth, thickness, subungual debris, and necrotic tissue, by manual and/or electrical means through the use of a nail nipper and/or dremel-type meat grinder, to a more viable healthy nail plate or bed tissue 6-10. Silver nitrate used for any petechial bleeding as necessary. Definitive antifungal treatment options have been reviewed and discussed with the patient. The patient chooses, no pharmaceutical tx - 49909.?Keratoma Treatment:?Parring or Cutting of Benign Hyperkeratotic Lesion(s)?(-57) More than 4 Lesions - The Benign hyperkeratotic lesions, as described above were pared, and/or cut utilizing a sterile 15 blade, tissue nippers, and/or dremel - 57248 , Q8.? * Procedure Codes:?56914 DEBRI DE NAIL, 6 OR MORE, Modifiers: XS 81822 TRIM SKIN LESIONS, OVER 4, Modifiers: XS , Q8 * Follow Up:?prn * Images: * Sign off status: Completed true * Provider:?Sergio Malik DPM Date:?2023 Generated for Joao patterson/Erin/Laxmi on:?04/01/2024 02:18 PM EST History and Physical Notes * [...]
--- OUTSIDE RECORDS SUMMARY | 2024-04-01 14:19 | XMS_ITS ---
Author Organization [facility] Nery mullen [place] Address [address] [place] [address] Care Team Providers Care Master Chef Name Role Phone Barbara Victor Primary Care Provider Sergio Montelongo Unavailable [phone] Allergies Allergen (clinical drug ingredient) Drug/Non Drug [...] Ordered Date Performed Result Body Sit e 04432-ZQQRPAO NAIL, 6 OR MORE 01/30/2024 N/A 24108-JYMY SKIN LESIONS, OVER 4 01/30/2024 N/A Encounters Encounter Location Date Provider Diagnosis [facility] [address] [address] 01/30/2024 Sergio Malik Type 2 diabetes mellitus [...] Treatment Pending Test Test Name Order Date 97672-TYPAVBF NAIL, 6 OR MORE 01/30/2024 07119-ZQCW SKIN LESIONS, OVER 4 01/30/20 24 Next Appt Details Follow Up: prn, Reason: Provider Name:Sergio Malik , 04/02/2024 08:45:00 AM, [address] [place] [address], [phone], Provider Name:Sergio Malik , 06/11/2024 08:45:00 AM, [address] [place] [address], [phone], Procedure Notes * Category Sub-Category Detail Notes [...] use of a nail nipper and/or dremel-type snuff grinder, to a more viable healthy nail [...] to maintain effectiveness in symptomatic relief - 56917 Keratoma Treatment Parring or Cutting o f [...] instrumentation by the physician of record - 62870, Q8 Progress Notes * Joanna TSE MDOB:1960 (63 yo F)Acc No.[id number]:01/30/2024 Progress Note Patient:?Joanna TSE Provider:?Sergio Malik DPM :1960???Age:63 Y???Sex:Female D ate:01/30/2024 Address:[address] [place], [place] [id number] Pcp:Barbara Victor Subjective: * Chief Complaints: * [...] walking. ?Marital status: . ?Occupation: [email or web address]. * Medications:?TakingLeflunomi de Jardiance 25 MG Tablet [...] - M79.675??? Plan: * Treatment: 2.?Tinea unguium?Procedure: 92832-FUBRIWN NAIL, 6 OR MORE * Procedures:?Debride Nail [...] use of a nail nipper and/or dremel-type snuff grinder, to a more viable healthy nail [...] to maintain effectiveness in symptomatic relief - 01284.?Keratoma Treatment:?Parring or Cutting of Benign Hyperkeratotic Lesion(s)?(-57) [...] instrumentation by the physician of record - 99147, Q8.? * Procedure Codes:?64408 DEBRI DE NAIL, 6 OR MORE, Modifiers: XS 12236 TRIM SKIN LESIONS, OVER 4, Modifiers: XS , Q8 * Follow Up:?prn * Images: * Sign off status: Completed true * Provider:?Sergio Malik DPM Date:?2023 Generated for Joao patterson/Erin/eTviolasmitting on:?04/01/2024 02:19 PM EST History and Physical Notes * [...]
--- OUTSIDE RECORDS SUMMARY | 2024-04-01 14:19 | XMS_ITS ---
[facility] Address [address] [place] [address] Care Team Providers Care Public Health Specialist Name Role Phone Barbara Victor Primary Care Provider Sergio Montelongo Unavailable [phone] REASON FOR VISIT [place] Encounters Encounter Location Date Provider Diagnosis [address] [address] 11/25/2023 Sergio Malik Plan Of Treatment Next Appt Details Provider Name:Sergio Malik , 04/02/2024 08:45:00 AM, [address] [place] [address], [phone], Provider Name:Sergio Malik , 06/11/2024 08:45:00 AM, [address] [place] [address], [phone], Progress Notes * Joanna TSE MDOB:1960 (63 yo F)Acc No.[id number]:11/25/2023 Patient:?Joanna Tse :1960???Age:63 Y???Sex:Female Address:[address] [facility] [address] [facility] , [place], [address] * true * Date:? Generated for Printi yesenia/Famaryanng/eTransmitting on:?04/01/2024 02:18 PM EST
== END 2024-04-01 13:44 | disposition home or self-care (01) ==
PROVIDERS: PCP Internal Medicine; Visit Provider Surgery
DX: K43.9 Ventral hernia without obstruction or gangrene (principal)
CPT/HCPCS: 99203

== ENCOUNTER 2024-04-20 07:09 | Outpatient (REF) | payer OTHER, SELFPAY ==
--- NOTE | ~2024-04-20 | CT_ITS ---
EXAMINATION: CT ABDOMEN PELVIS WITHOUT IV CONTRAST HISTORY: K43.9 - Ventral hernia without obstruction or gangrene COMPARISON: Comparison is made with the prior examination dated 05/18/2018. TECHNIQUE: CT scan of the abdomen and pelvis was performed without contrast using standard departmental protocol. Coronal and sagittal reformatted images were generated and reviewed. Oral contrast material was not administered at the request of the referring physician. This CT exam was performed with one or more of the following dose reduction techniques: automated exposure control, adjustment of the mA and/or kV according to patient size, use of iterative reconstruction technique. DLP: 528 mGy-cm FINDINGS: LOWER CHEST: There is linear scarring at the left lung base. The visualized right lung base is clear.. There is no pleural effusion. CARDIOVASCULATURE: The heart is normal in size. There is no pericardial effusion. LIVER: The liver is normal in size and contour, but demonstrates decreased attenuation, consistent with steatosis. The liver has an unremarkable unenhanced appearance. GALLBLADDER / BILE DUCTS: The gallbladder is contracted, without evidence of calcified stones. There is no intra or extrahepatic biliary ductal dilatation. SPLEEN: The spleen is normal in size and has an unremarkable unenhanced appearance. PANCREAS: The pancreas has an unremarkable unenhanced appearance. ADRENAL GLANDS: Unremarkable. KIDNEYS/RETROPERITONEUM: No renal calculi are identified. There is no hydronephrosis. LYMPH NODES: No retroperitoneal lymphadenopathy is identified in the abdomen or pelvis. VASCULATURE: The abdominal aorta demonstrates atherosclerotic calcification, but is normal in caliber. MESENTERY/PERITONEUM: No free fluid. No masses. There is no free intraperitoneal gas. STOMACH: There is a small hiatal hernia. The remainder of the stomach is unremarkable in appearance. SMALL BOWEL: There is a duodenal diverticulum containing debris. The small bowel is normal in caliber. COLON: There is diverticulosis of the descending and sigmoid colon, without evidence of diverticulitis. APPENDIX: Normal. URINARY BLADDER/PELVIC ORGANS: The urinary bladder is collapsed, limiting evaluation. The patient is status post hysterectomy. BONES / SOFT TISSUES: There is a fat-containing ventral hernia just above the umbilicus. The mouth of the hernia measures 4.2 cm in transverse dimension and 3.7 cm in craniocaudal dimension. There is degenerative disc disease of the spine. CT/CT abdomen pelvis wo IV con IMPRESSION: 1. Fat-containing ventral hernia just above the umbilicus as described. 2. Hepatic steatosis. 3. Small hiatal hernia. 4. Diverticulosis of the descending and sigmoid colon, without evidence of diverticulitis. Electronically signed by: Miah Jerez MD 04/20/2024 09:09 AM EDT
--- OUTSIDE RECORDS SUMMARY | 2024-04-20 07:12 | XMS_ITS ---
Author Organization [facility] Nery mullen [place] Address [address] [place] [address] Care Team Providers Care Heating And Air Conditioning Mechanic Name Role Phone Barbara Victor Primary Care Provider Sergio Montelongo Unavailable [phone] Allergies Allergen (clinical drug ingredient) Drug/Non Drug Allergy documented on EMR Reaction Allergy Type Onset Date Status ciprofloxacin Cipro rash Drug Allergy Act danielle Levaquin rash Drug Allergy Active REASON FOR VISIT At Risk Footcare, Painful Nail(s) aggrevated by shoes and causing difficulty standing/walking, Toe Irritation Medications Medication SIG (Take, Route, Frequency, Duration) Notes Start Date End Date Status Lisinopril 10 MG 1 tablet Orally Once a day for 30 day(s) Not-Taking Terbinafine Not-Taki ng Ciclopirox Olamine 0.77 % 1 application to affected area Externally to feet Twice a day for 30 days Not-Taking Prednisone Temp last day 09/11/21 Not-Taking Methotrexate Sodium 10 MG as directed Orally once a week Not-Taking Leflunomide & Diclofenac Sod Not-Taking Zolpidem Tartrate 10 MG 1 tablet at bedtime as needed Orally Once a day PRN Active Xeljanz 5 MG 1 tablet Orally Twice a day for 30 day(s) Not-Taking Vitamin D 1 tablet Orally Once a day Active Tradjenta 5 MG 1 tablet Orally Once a day Not-Taking Simvastatin 10 MG 1 tablet in the evening Orally Once a day for 30 day(s) Active Levothyroxine Sodium 112 MCG 1 tablet in the morning on an empty stomach Orally Once a day for 30 day(s) Active metFORMIN HCl 500 MG 1 tablet with a meal Orally four times a day Active Folic Acid 1 MG 1 tablet Orally Once a day for 30 day(s) Active Diclofenac-miSOPROStol 75-0.2 MG 1 tablet with food Orally Twice a day Active amLODIPine Besylate Active Jardiance 25 MG 1 tablet Orally Once a day Active Leflunomide Not-Adriana yesenia Betancourt Active Social History Tobacco Use: Social History Observation Description Date Details (start date - stop date) Never Smoker NA - NA Tobacco Use/Smoking Question Answer Notes Are you a: nonsmoker Additional Findings: Tobacco Non-User Current no n-smoker Tobacco use other than smoking: Question Answer Notes Are you an other tobacco user? No Problems Problem Type SNOMED Code ICD Code Onset Dates Problem Status W/U Status Risk Notes Problem Acquired hammer toe of right foot (3029041420445 105) Other hammer toe(s) (acquired), right foot (M20.41) Active confirmed Problem Acquired hammer toe of left foot (5978544192840 103) Other hammer toe(s) (acquired), left foot (M20.42) Active confirmed Vital Signs Height 5ft2.5in in 04/02/2024 Weight 163 lbs 04/02/2024 BMI 29.33 kg/m2 04/02/2024 Blood pressure systolic 120 mm Hg 04/02/19 25 Blood pressure diastolic 70 mm Hg 025 Procedures Procedure Date Ordered Date Performed Result Body Sit e 29316-DJOYBHI NAIL, 6 OR MORE 04/02/2024 N/A 15873-FBAW SKIN LESIONS, OVER 4 04/02/2024 N/A Encounters Encounter Location Date Provider Diagnosis [facility] [place] [address] [place] [address] 04/02/2024 Sergio Malik Type 2 diabetes mellitus with diabetic peripheral angiopathy without gangrene E11.51 ; Tinea unguium B35.1 ; Pain in right toe(s) M79.674 ; Pain in left toe(s) M79.675 ; Other hammer toe(s) (acquired), right foot M20.41 and Other hammer toe(s) (acquired), left foot M20.42 Assessments Encounter Date Diagnosis (ICD Code) Assessment Notes Treatment Notes Treatment Clinical Notes Section Notes 04/02/2024 Type 2 diabetes mellitus with diabetic peripheral angiopathy without gangrene (ICD-10 - E11.51) 04/02/2024 Tinea unguium (ICD-10 - B35.1) 04/02/2024 Pain in right toe(s) (ICD-10 - M79.674) 04/02/2024 Pain in left toe(s) (ICD-10 - M79.675) 04/02/2024 Other hammer toe(s) (acquired), right foot (ICD-10 - M20.41) Patient Educated with: DIABETIC FOOT CARE INSTRUCTIONS.p df (DIABETIC FOOT CARE INSTRUCTIONS.p df) 04/02/2024 Other hammer toe(s) (acquired), left foot (ICD-10 - M20.42) 04/02/2024 Other Plan Of Treatment Treatment Notes Assessment Notes Other hammer toe(s) (acquired), right fo ot Patient Educated with: DIABETIC FOOT CARE INSTRUCTIONS.pdf (DIABETIC FOOT CARE INSTRUCTIONS.pdf) Pending Test Test Name Order Date 07038-KEPIWXU NAIL, 6 OR MORE 04/02/2024 92056-YMVA SKIN LESIONS, OVER 4 04/02/19 25 Next Appt Details Follow Up: prn, Reason: Provider Name:Sergio Malik , 06/22/2024 09:30:00 AM, [address] [place] [address], [phone], Provider Name:Sergio Malik , 08/20/2024 08:45:00 AM, [address] [place] [address], [phone], Procedure Notes * Category Sub-Category Detail Notes Debride Nail 6-10 Nail debridement Due to the cl inical pathology outlined in the exam findings, performance of this nail treatment is medically necessary as its management by an unskilled/untrained nonprofessional would put this patients foot and overall health at risk. Therefore, debridement to affected nail(s), as described in exam ( T2, T3, T4, T5, T6, T9 ), was performed exclusively by the physician of record to reduce/remove overall nail length, girth, thickness, subungual debris, and necrotic tissue, by manual and/or electrical means through the use of a nail nipper and/or dremel-type hull grinder, to a more viable healthy nail [...] to maintain effectiveness in symptomatic relief - 02246 Keratoma Treatment Parring or Cutting o f [...] (s), 2, B/L , Plantar, Heel(s), B/L ), were pared, and/or cut utilizing a sterile 15 blade, tissue nippers, and/or power dremel instrumentation by the physician of record - 64514, Q8 Progress Notes * Joanna TSE MDOB:1960 (63 yo F)Acc No.[id number]:04/02/2024 Progress Note Patient:?Joanna TSE Provider:?Sergio Malik DPM :1960???Age:63 Y???Sex:Female D ate:04/02/2024 Address:[address] [place], [place] [id number] Pcp:Barbara Victor Subjective: * Chief Complaints: * ???At Risk FootcarePainful N ail(s) aggrevated by shoes and causing difficulty standing/walkingToe Irritation * HPI: ???At Risk footcare:?Pt States Last PCP Visit:?Date?03/19/2024 ???Toe pain:?Location:?B/L feet.?Duration:?several years.?Aggravated by:?shoes, any pressure.?Treatments:?change in shoes.? * ROS:?General/Constitutional:?Nausea?denies.?Vomiting?denies.?Hunger Thirst?denies.?Loss appetite?denies.?Chills?denies.?Fatigue?denies.?Fever?denies.?Night Sweats?denies.?Unexplained weight loss?denies.?Unexplained [...] 05/25bunion Surgery 2009C-Section 1985,1987Right quad rupture repair 07/22/ysterectomy 06/09/2023 * Hospitalization/Major Diagno stic Procedure:?Denies Past Hospitalization * Family History:?Mother: dece ased, diagnosed with Family history of arthritis.?Father: .?Siblings: Sister, diagnosed with Diabetic - NIDDM, Family history of arthritis.? * Social History:?Tobacco Use:?Tobacco Use/Smoking?Are you a:?nonsmoker ?Additional Findings: Tobacco Non-User?Current non-smoker ?Tobacco use other than smoking?Are you an other tobacco user??No ???Miscellaneous:?Caffeine: yes, 1 cups per day. ?Children: yes, 2. ?Exercise: yes, walking. ?Marital status: . ?Occupation: [employer]. * Medications:?TakingJanuvia J ardiance 25 MG Tablet 1 tablet Orally Once [...] in the evening Orally Once a day Vitamin D 1 tablet Orally Once a day Zolpidem Tartrate 10 MG Tablet 1 tablet at bedtime as needed Orally Once a day , Notes to Pharmacist: PRNTaking Kenrickuvia Taking Jardiance 25 MG Tablet 1 tablet [...] the evening Orally Once a day Taking Vitamin D 1 tablet Orally Once a day Taking Zolpidem Tartrate 10 MG Tablet 1 tablet at bedtime as needed Orally Once a day , Notes to Pharmacist: PRNNot-Taking/PRNLeflunomide Tradjenta 5 MG Tablet 1 tablet Orally Once a day Xeljanz 5 MG Tablet 1 tablet Orally Twice a day Leflunomide & Diclofenac Sod Methotrexate Sodium 10 MG Tablet as directed Orally once a week Prednisone , Notes to Pharmacist: Temp last day 09/11/21Ciclopirox Olamine 0.77 % Cream 1 application to affected area Externally to feet Twice a day Terbinafine Lisinopril 10 MG Tablet 1 tablet Orally Once a day Medication List reviewed and reconciled with the patientNot-Taking/PRN Leflunomide Not-Taking/PRN Tradjenta 5 MG Tablet 1 tablet Orally Once a day Not-Taking/PRN Xeljanz 5 MG Tablet 1 tablet Orally Twice a day Not-Taking/PRN Leflunomide & Diclofenac Sod Not-Taking/PRN Methotrexate Sodium [...] with the patient * Allergies:?Cipro: rashLevaqu in: shad[Allergies Verified] Objective: * Vitals:?Ht: 5ft2.5in, Wt:163 , BMI:29.33, Shoe size: 6.5, BP:120/70mm Hg, BS: 140, Ht-cm: 158.75 cm, Wt-k.94 kg. * ???Past Orders: ???Lab:HEMOGLOBIN A1C (GLYCO HEMOGLOBIN) (Order Date - 04/02/2024) (Collection Date & Time - 04/02/2024 08:46 AM) ? Value Reference Range ?HEMOGLOBIN A1C % (HH) 7.2 * Examination: ???Ophthalmology Referral: ?DIABETES EYE EXAM?Procedure Performed:?Yes ?Date of Exam Performed?01/16/2024 ?Findings of Diabetic Eye Exam:?no retinopathy?Vascular: ?DP PULSES (B):? 1/4, B/L.?PT PULSES (B):? 0/4, B/L.?CAPILLARY FILL TIME:? delayed, all digits, B/L.?TROPHIC CONDITION-TEXTURE/ELASTICITY/TURGOR/HAIR GROWTH (B):? decreased, with sparse to absent hair growth, B/L.?TEMPERTURE GRADIENT (C):? decreased, cool to cool, proximal to distal, B/L.?PIGMENTATION:? rubrous, B/L.?EDEMA (C):? 1/4, non-pitting, without aching pain, B/L, Ankle(s).?CLAUDICATION (C):?denies, [...] to push-up test, no over, nor underlapping , Digital contracture, PIPJ, 2-5 B/L, incompl-reducible to push-up test, no over, nor underlapping,?there is?evidence of shoe producing skin irritation.?FOOTWEAR:?good condition , worn, non-supportive, shoe gear properties exacerbate patient's foot/toe deformity.?Neurological: ?SENSORY:?Neurological exam reveals intact sensorium, pain sensation [...] in no acute distress.?ORIENTED:?person, place, and time.?FOOT EXAM:?Lower Extremity Neurological Exam performed:?Yes ?Visual exam of foot performed:?Yes ?Date?04/02/2024 ?Footwear Evaluation?Footwear Evaluation performed:?Yes??? Assessment: * Assessment: 1.?Type 2 diabetes mellitus with diabetic peripheral angiopathy without gangrene - E11.51 (Primary)???2.?Tinea unguium - B35.1???3.?Pain in right toe(s) - M79.674???4.?Pain in left toe(s) - M79.675???5.?Other hammer toe(s) (acquired), right foot - M20.41???Specify :Chronic problem, Worse (4)???6.?Other hammer toe(s) (acquired), left foot - M20.42???Specify :Chronic problem, Worse (4)??? Plan: * Treatment: 2.?Tinea unguium?Procedure: 19776-XBCEIKG NAIL, 6 OR MORE 3.?Other hammer toe(s) (acqu ired), right foot? Notes: Patient Educated with: DIABETIC FOOT CARE INSTRUCTIONS.pdf (DIABETIC FOOT CARE INSTRUCTIONS.pdf)?? * Procedures:?Debride Nail 6-10:?Nail debridement?Due to the clinical pathology outlined in the exam findings, performance of this nail treatment is medically necessary as its management by an unskilled/untrained nonprofessional would put this patients foot and overall health at risk. Therefore, debridement to affected nail(s), as described in exam (?T2,?T3,?T4,?T5,?T6,?T9?), was performed exclusively by the physician of record to reduce/remove overall nail length, girth, thickness, subungual debris, and necrotic tissue, by manual and/or electrical means through the use of a nail nipper and/or dremel-type hull grinder, to a more viable healthy nail [...] to maintain effectiveness in symptomatic relief - 27994.?Keratoma Treatment:?Parring or Cutting of Benign Hyperkeratotic Lesion(s)?(-57) [...] in the exam (?SUB MTH (s),?1,?B/L?,?SUB MTH (s),?2,?B/L?,?Plantar,?Heel(s),?B/L?), were pared, and/or cut utilizing a sterile 15 blade, tissue nippers, and/or power dremel instrumentation by the physician of record - 26599, Q8.? * Procedure Codes:?44806 DEBRI DE NAIL, 6 OR MORE, Modifiers: XS 44463 TRIM SKIN LESIONS, OVER 4, Modifiers: XS , Q8 * Preventive Medicine:? ??Counseling:?Discussion:?-13: Office or other outpatient visit for the evaluation and management of an established patient, which required a medically appropriate history and/or examination and LOW level of DECISION MAKING for: 1 STABLE ACUTE UNCOMPLICATED PROBLEM, 2 OR MORE MINOR PROBLEMS, OR 1 STABLE CHRONIC PROBLEM, THAT POSE(S) A LOW RISK FOR MORBIDITY/MORTALITY. The visit on the day of the encounter encompassed interpreting the data and educating the patient as to the nature of their condition, treatment options available according to their individual PMH, meds, allergies, and overall health/living conditions, as well as any potential risks or complications that may occur from a failure to adhere to, and participate in, the recommended course of therapy. The discussion included a complete verbal, and/or written explanation of the examination results, any x-rays taken, the proposed diagnosis, and outline of the treatment plan. A schedule for future care needs was also explained. The patient verbalized an understanding of the instructions at this time and agreed to be an active participant in their treatment. If the patient should think of any questions or concerns after the visit, I have encouraged the patient to call the office.?Digital Surgery:?Digital surgery was discussed with the patient, We elected to try conservative treatment at the present time, due to the patients medical history and increased asssociated post-operative risks.?Digital Treatment:?HT- I explained to the patient the possible etiologies of Hammertoes, including genetics/foot type/shoegear/activity level/exercise routine and the risks/benefits of all the different treatment options for their pain including: No treatment at all, Rest, Ice, New/supportive/wider/deeper Shoegear, Digital Padding/Strapping/Taping/Bracing/Gel protective sleeves, Foot/Ankle AFO Bracing, Stretching exercises, Deep Tissue Massage, Arch support/shoe inserts with splay metatarsal padding, and Custom orthoses. I insisted that any digital devices be removed daily and not worn overnight for safety. The patient is to carefully examine the toes daily for any skin irritation while using any splinting or padding device. The advantages and disadvantages of each option were discussed and the patients questions re: shoegear, padding, custom vs prefabricated inserts, activity level, and consistency in home treatment regimens for optimal success were answered to their verbally confirmed satisfaction.?Shoe Gear Counseling:?SHOE Rx - The patient was counseled in great detail on their muscoloskeletal foot and toe deformities which coincided with the dermatological presentations visualized on exam. We discussed how their deformities put the integrity of their feet at risk for potential pedal complications which makes the accomidative diabetic shoes and cutomizable inserts medically necessary. We discussed the different shoe and insert treatment types and options, as well as the important advantages for adhering to regularly wearing these accomidative devices daily. The patient was made aware of the fact that a failure to abide by these recommedations may be deleterious to their foot health as they are able to prevent many pedal complications such as skin irritation, skin ulceration, infection, and even loss of toe/foot/leg/or life. Time was also spent with the patient dispensing and discussing proper diabetic footcare techniques including daily skin moisturization, daily foot inspection for any interruption in skin integrity including open lesions, or sign of infection such as redness/malodor/drainage/swelling. Also discussed and recommended were procedures regarding daily shoe inspection for the presence of internal foreign bodies as well as any visualized irregular shoe or insert wear. Patient questions re: shoes, inserts, and self foot inspections were answered to their satisfaction as the patient verbally confirmed a full understanding of the above information, Patient DEFERS recommended Extra Depth Orthopedic pressure-accommodative shoes against medical advice.? ??Screening/Special Tests:?Fall Risk?Screening:?No falls in the past year ?FALLS: Screening for Future Fall Risk?Have you had any falls with injury in the past year??No * Follow Up:?prn * Images: * Sign off status: Completed true * Provider:?Sergio Malik DPM Date:?2024 Generated for Joao patterson/Erin/Laxmi on:?04/20/2024 07:12 AM EDT History and Physical Notes * HPI (History of Present Illness) Category Sub-Category Detail Notes Category Not es Toe pain Location: B/L feet Duration: several years Aggravated by: shoes, any pressure Treatments: change in shoes At Risk footcare Pt States Last PCP Visit: Date: 5 Examination Category Sub-Category Detail Notes Category Not [...] apse/destruction noted at [facility] FOOTWEAR: good condition , wor n, non-supportive, shoe gear properties exacerbate patient's foot/toe deformity DIGITAL DEFORMITIES: Digital contracture , PIPJ, 2-5 B/L, incompl-reducable to push-up test, no over, nor underlapping , Digital contracture, PIPJ, 2-5 B/L, incompl-reducible to push-up test, no over, nor underlapping, there is evidence of shoe producing skin irritation MUSCLE STRENGTH: 5/5 all groups in a symmetrical fashion , B/L General Examination GENERAL APPEARANCE: Reveals a pleasant, alert, well nourished, well developed, well hydrated individual, who demonstrates proper attention to hygene/body habitus, and is in no acute distress FOOT EXAM: Lower Extremity Neurological Exa m performed:: Yes Visual exam of foot performed:: Yes Date: 04/02/2024 ORIENTED: person, place, and t piero Footwear [...]
--- OUTSIDE RECORDS SUMMARY | 2024-04-20 07:12 | XMS_ITS ---
Author Organization [facility] Nery mullen Bureau Address [address] [place] [address] Care Team Providers Care Support Clerk Name Role Phone Barbara Victor Primary Care Provider Sergio Montelongo Unavailable [phone] Allergies Allergen (clinical drug ingredient) Drug/Non Drug Allergy documented on EMR Reaction Allergy Type Onset Date Status Cipro rash Drug Allergy Active Levaquin rash Drug Allergy Active REASON FOR [...] Ordered Date Performed Result Body Sit e 75986-[id number] NAIL, 6 OR MORE 11/25/2023 N/A 63434-COGE SKIN LESIONS, OVER 4 11/25/2023 N/A Encounters Encounter Location Date Provider Diagnosis [facility] [address] [address] 11/25/2023 Sergio Malik Type 2 diabetes mellitus [...] Treatment Pending Test Test Name Order Date 19114-YYOGBBY NAIL, 6 OR MORE 11/25/2023 94426-IAVZ SKIN LESIONS, OVER 4 11/25/19 24 Next Appt Details Follow Up: prn, Reason: Provider Name:Sergio Malik 06/22/2024 09:30:00 AM, [address] [place] [address], [phone], Provider Name:Sergio Malik , 08/20/2024 08:45:00 AM, [address] [place] [address], [phone], Procedure Notes * Category Sub-Category Detail [...] use of a nail nipper and/or dremel-type radius grinder, to a more viable healthy nail plate or bed tissue 6-10. Silver nitrate used for any petechial bleeding as necessary. Definitive antifungal treatment options have been reviewed and discussed with the patient. The patient chooses, no pharmaceutical tx - 20172 Keratoma Treatment Parring or Cutting o f Benign Hyperkeratotic Lesion(s) (-57) More than 4 Lesions - The Benign hyperkeratotic lesions, as described above were pared, and/or cut utilizing a sterile 15 blade, tissue nippers, and/or dremel - 05182 , Q8 Progress Notes * Joanna TSE MDOB:1960 (63 yo F)Acc No.[id number]:11/25/2023 Progress Note Patient:?Joanna Tse Provider:?Sergio aMlik DPM :1960???Age:63 Y???Sex:Female D ate:11/25/2023 Address:[address] [place], [place] [address] Pcp:Barbara Victor Subjective: * Chief Complaints: * [...] ?Exercise: yes, walking. ?Marital status: . ?Occupation: [employer] * Medications:?TakingamLODIPin e Besylate Diclofenac-miSOPROStol 75-0.2 MG [...] - M79.675? Plan: * Treatment: 2.?Tinea unguium?Procedure: 91678-KEIWWAM NAIL, 6 OR MORE * Procedures:?Debride Nail 6-10:?Nail debridement?Performance of this nail treatment by a nonprofessional would put this patients foot and overall health at risk. Therefore, nail debridement was performed extensively to reduce/remove overall nail length, girth, thickness, subungual debris, and necrotic tissue, by manual and/or electrical means through the use of a nail nipper and/or dremel-type radius grinder, to a more viable healthy nail plate or bed tissue 6-10. Silver nitrate used for any petechial bleeding as necessary. Definitive antifungal treatment options have been reviewed and discussed with the patient. The patient chooses, no pharmaceutical tx - 62851.?Keratoma Treatment:?Parring or Cutting of Benign Hyperkeratotic Lesion(s)?(-57) More than 4 Lesions - The Benign hyperkeratotic lesions, as described above were pared, and/or cut utilizing a sterile 15 blade, tissue nippers, and/or dremel - 54866 , Q8.? * Procedure Codes:?23077 DEBRI DE NAIL, 6 OR MORE, Modifiers: XS 68259 TRIM SKIN LESIONS, OVER 4, Modifiers: XS , Q8 * Follow Up:?prn * Images: * Sign off status: Completed true * Provider:?Sergio Malik DPM Date:?2023 Generated for Joao patterson/Erin/Laxmi on:?04/20/2024 07:12 AM [...]
--- OUTSIDE RECORDS SUMMARY | 2024-04-20 07:12 | XMS_ITS | Clinical Summary ---
Author Organization [facility] Address [address] [place] [address] Care Team Providers Care Safety And Occupational Health Manager Name Role Phone ValenteBarbara Katelynn Primary Care Provider [phone] Allergies Active Allergy Reactions Criticality Noted Date [...] in February. 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 Problems [...] 12/27/2015 12/26/2014, 11/16/2014 Pap Smear 06/17/2017 06/17/2014, 1206/2011, 05/03/2008, Additional history exists Ophthalmology Exam 07/31/2017 [...] complete this topic Procedures * Due to [place] [employer] law, this organization might not be sharing negative HIV tests. Procedure Name Priority Date/Time Associated Diagnosis Comments MICROALBUMIN, RANDOM URINE WITH CREATININE Routine 01/24/2020 9:14 AM EST Stage 3b chronic kidney disease BASIC METABOLIC PANEL, OUTSIDE LAB Routine 08/30/2019 HEMOGLOBIN A1C Routine 05/28/2017 3:55 PM EDT Type 2 diabetes mellitus without complication, without long-term current use of insulin ([facility]) DIABETES EYE EXAM Routine 07/31/2016 9:16 AM EDT MAMMOGRAPHY Routine 05/15/2016 12:00 AM EDT PAP W/HPV, CONVERSION Routine 06/17/2014 10:55 AM EDT HEPATITIS C ANTIBODY W/REFLEX TO HCV RNA, QUANTITATIVE PCR Routine 03/03/2014 2:31 PM EST from Last 3 Months or Most Recently Relevant to Health Maintenance Results * Due to [place] [employer] law, this organization might not be sharing negative HIV tests. * (ABNORMAL) Microalbumin/Creatinine Urine Ratio, Random (01/24/2020 9:14 AM EST) Microalbumin, Urine 5.0 mg/dL 01/24/2020 11:04 AM EST [facility] Creatinine, Urine 23 15 - 278 mg/dL 01/24/2020 11:04 AM EST [facility] Microalb/Creat Ratio, Random Urine 217.4(H) <30.0 mcg/mgCr 01/24/2020 11:04 AM EST [facility] Comment: Microalbumin Reference Range: Normal ? <30 mcg/mg Creatinine Microalbuminuria ? 30-300 mcg/mg Creatinine Clinical Albuminuria >300 mcg/mg Creatinine Reference: ADA Guideline. Diabetes Care. 2004;27 (suppl 1) Urine Voided urine specimen / Unknown Non-Blood Collection / Unknown 01/24/2020 9:14 AM EST 01/24/2020 10:30 AM EST us Meaghan Ziegler MD LAB URINE ORDERABLES Final Res ult [facility] [address] [place] [address], * (ABNORMAL) Basic Metabolic Panel, Outside Lab (08/30/2019) Potassium 4.9 Creatinine 1.45(H) mg/dL eGFR Non- 37(L) Blood Structure of peripheral vein / Unknown 08/30/2019 us Unknown Provider LAB BLOOD ORDERABLES Final R esult * (ABNORMAL) Hemoglobin A1c (05/28/2017 3:55 PM EDT) Hemoglobin A1C 7.6(H) <5.7 % of total Hgb 05/28/2017 10:49 PM EDT [facility] Comment: For someone without known diabetes, a [...] (MG/DL) 171 (calc) 05/28/2017 10:49 PM EDT [email or web address] [facility] eAG (MMOL/L) 9.5 (calc) 05/28/2017 10:49 PM EDT [email or web address] [facility] Blood specimen (specimen) Structure of peripheral vein / Unknown Venipuncture / Unknown 05/28/2017 3:55 PM EDT 05/28/2017 4:30 PM EDT Narrative [facility] - 05/28/2017 10:49 PM EDT [facility] Received Date:[id number] Jose Manuel Bell MD LAB BLOOD ORDERABLES Final Re sult [facility] [address] [facility] [address] Floor, [place] [address], [facility] [address] [facility] [address], [place] [address], [place] [phone] * DIABETES EYE EXAM (07/31/2016 9:16 AM EDT) Eye Exam [id number] [facility] MANUAL RESULTS 07/31/2016 9:16 AM EDT Benita Napier MD HEALTH MAINTENANCE Final Resul t [facility] MANUAL RESULTS * MAMMOGRAPHY (05/15/2016 12:00 AM EDT) Mammogram Benign/ there are scattered areas of fibroglandular density . No significant change from prior study 2 OUTSIDE LABORATORY Anatomical Region Laterality Modality Other 05/15/2016 us Historical Conversion Provider HEALTH MAINTENANC E Final Result * Pap w/HPV (06/17/2014 10:55 AM EDT) Path Procedure TPGAS (126713) 1 ?? HPVHR(041104) 1 ?? Edited by: [id number] - [address] [address] ?? [id number] - 1324 -SCRPT6 [facility] Specimen Labeled As: 1 CERVICAL/ENDOCERVI MAKAYLA CYTO MATERIAL - Edited by: [id number] - 5719 HUGHER1 [facility] Additional Test Information Specimens were tested for high risk HPV using the FDA approved Digene Hybrid ?? Capture II kit, in the Diagnostic Molecular Oncology Lab at [facility] ?? Health Care. ??This test can detect [...] abnormality. ??We endorse the recommendations of the [place] Society for ?? Colposcopy and Cervical Pathology [...] complexity clinical laboratory testing. ?? Edited by: [id number] - 1322 BW-SCRPT6 [facility] - [facility] Diagnosis ThinPrep Pap Test ? Adequacy: Satisfactory for evaluation ? Interpretation: Negative for Intraepithelial Lesion or Malignancy ? Remarks/Recommenda tions: ?? This is the result of a morphological screening test with an inherent ?? possibility of a false negative interpretation. ?? This Pap test was examined in accordance with the [facility] Cytopathology ?? Laboratory written policy, which incorporates all CLIA mandates. Screening ?? guidelines can be found in Am J Clin Pathol 2012;137:516-542. ??We endorse the ?? practice guidelines developed by ASCCP and published in the Journal Lower ?? Genital Tract Disease 17(5):S1-S27 (2013). ? This Pap test was examined by the ThinPrep Imaging System, [employer], [place], [place]. ?- High risk HPV DNA subtypes: NEGATIVE ?? Edited by: [id number] - 8290 -SCRPT6 ?? [id number] [place] [facility] - [facility] Gynecologic Clinical Data Specimen source:, THINPREP (CERVICAL AND ENDOCERVICAL) [facility] Gynecologic Clinical Data Gynecologic findings:, POST MENOPAUSAL [facility] Pathology Codes Client Order Code:, TPHGS3 [facility] Pathology Codes Bill Type:, 3RD [employer] [facility] - [facility] Completed Report [id number] HPV, HIGH RISK TYPES 1 [facility] Marker 1 TOR GOMES [facility] PATH[facility] - [facility] Marker 2 MDNEG,MD NEGATIVE [facility] PATH[facility] - [facility] Marker 3 NILM,NILM [facility] - [facility] Marker 4 RIM,RECEIVED IN MOLECULAR [facility] - [facility] Marker 5 CRISTY GHOSH-ANDI [facility] - [facility] Cc Results To COMPA GODDARD K. CAREER TECHNICAL COUNSELOR ??[id number] ?? JOHNNY SIU ??[id number] [facility] Signature REPORT SIGNED: TOR LAURA 06/29/14 [facility] Sign Out Audit TOR LAURA [id number] FINAL [place] [id number] [facility] Cytology / Unknown 5 10:55 AM EDT 06/20/2014 10:55 AM EDT us Juliet Napier MD LAB HISTORICAL RESULT S Final Result [facility] [address] [place] [address], * Hepatitis C Antibody w/Reflex to HCV RNA, Quantitative PCR (03/03/2014 2:31 PM EST) Hepatitis C Antibody NON-REACTI VE NON-REACT CRISTINA [facility] Signal To Cut-Off 0.06 <1.00 [facility] 03/03/2014 2:31 PM EST 03/03/2014 3:50 PM EST Jessi Garcia LAB BLOOD ORDERABLES Final Resul t ENEIDA MCGARRY from Last 3 Months or Most Recently Relevant to Health Maintenance Insurance [employer] Advance Directives Documents on File Type Date Recorded Patient Legal Adviser Expl anation Advance Directive 09/12/2014 12:00 AM sf Me dical Dec Making (Adv.Dir) Care Teams Safety And Occupational Health Manager Relationship Specialty Start Date End Date Barbara Victor [address] [place] [address] [place] [address] PCP - General Internal Medicine 06/24/17
--- OUTSIDE RECORDS SUMMARY | 2024-04-20 07:12 | XMS_ITS | Referral Summary ---
Author Organization [facility] Address [address] [place] [address] Care Team Providers Care Oral And Maxillofacial Pathologist Name Role Phone ValenteBarbara Katelynn Primary Care [...] in February. Rheumatoid arthritis 10/16/2008 Overview (11/01/2016): patient partner Dr. 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 Problems [...] Not on file Procedures * Due to [place] state law, this organization might not be sharing negative HIV tests. Procedure Name Priority Date/Time Associated Diagnosis Comments MICROALBUMIN, RANDOM URINE WITH CREATININE Routine 01/24/2020 9:14 AM EST Stage 3b chronic kidney disease BASIC METABOLIC PANEL, OUTSIDE LAB Routine 08/30/2019 HEMOGLOBIN A1C Routine 05/28/2017 3:55 PM EDT Type 2 diabetes mellitus without complication, without long-term current use of insulin ([facility]) DIABETES EYE EXAM Routine 07/31/2016 9:16 AM EDT MAMMOGRAPHY Routine 05/15/2016 12:00 AM EDT PAP W/HPV, CONVERSION Routine 06/17/2014 10:55 AM EDT HEPATITIS C ANTIBODY W/REFLEX TO HCV RNA, QUANTITATIVE PCR Routine 03/03/2014 2:31 PM EST from Last 3 Months or Most Recently Relevant to Health Maintenance Results * Due to [place] [employer] law, this organization might not be sharing negative HIV tests. * (ABNORMAL) Microalbumin/Creatinine Urine Ratio, Random (01/24/2020 9:14 AM EST) Microalbumin, Urine 5.0 mg/dL 01/24/2020 11:04 AM EST [facility] Creatinine, Urine 23 15 - 278 mg/dL 01/24/2020 11:04 AM EST [facility] Microalb/Creat Ratio, Random Urine 217.4(H) <30.0 mcg/mgCr 01/24/2020 11:04 AM EST [facility] Comment: Microalbumin Reference Range: Normal ? <30 mcg/mg Creatinine Microalbuminuria ? 30-300 mcg/mg Creatinine Clinical Albuminuria >300 mcg/mg Creatinine Reference: ADA Guideline. Diabetes Care. 2004;27 (suppl 1) Urine Voided urine specimen / Unknown Non-Blood Collection / Unknown 01/24/2020 9:14 AM EST 01/24/2020 10:30 AM EST us Meaghan Ziegler MD LAB URINE ORDERABLES Final Res ult [facility] [address] [place] [address], [place] * (ABNORMAL) Basic Metabolic Panel, Outside Lab (08/30/2019) Potassium 4.9 Creatinine 1.45(H) mg/dL eGFR Non- 37(L) Blood Structure of peripheral vein / Unknown 08/30/2019 us Unknown Provider LAB BLOOD ORDERABLES Final R esult * (ABNORMAL) Hemoglobin A1c (05/28/2017 3:55 PM EDT) Hemoglobin A1C 7.6(H) <5.7 % of total Hgb 05/28/2017 10:49 PM EDT [facility] Comment: For someone without known diabetes, a [...] (MG/DL) 171 (calc) 05/28/2017 10:49 PM EDT [facility] eAG (MMOL/L) 9.5 (calc) 05/28/2017 10:49 PM EDT [facility] Blood specimen (specimen) Structure of peripheral vein / Unknown Venipuncture / Unknown 05/28/2017 3:55 PM EDT 05/28/2017 4:30 PM EDT Narrative [facility] - 05/28/2017 10:49 PM EDT [facility] Received Date:[id number] Jose Manuel Bell MD LAB BLOOD ORDERABLES Final Re sult [facility] [address] [facility] 3rd [address], [place] [address], [place] [phone] [facility] [address] [facility] 3rd Floor, [place] [address], [place] [phone] * DIABETES EYE EXAM (07/31/2016 9:16 AM EDT) Eye Exam [id number] [facility] MANUAL RESULTS 07/31/2016 9:16 AM EDT Benita Napier MD HEALTH MAINTENANCE Final Resul t [facility] MANUAL RESULTS * MAMMOGRAPHY (05/15/2016 12:00 AM EDT) Mammogram Benign/ there are scattered areas of fibroglandular density . No significant change from prior study 2 OUTSIDE LABORATORY Anatomical Region Laterality Modality Other 05/15/2016 Historical Conversion Provider HEALTH MAINTENANC E Final Result * Pap w/HPV (06/17/2014 10:55 AM EDT) Path Procedure TPGAS (020697) 1 ?? HPVHR(623773) 1 ?? Edited by: [id number] JOI ?? [id number] - 1324 -SCRPT6 [facility] Specimen Labeled As: 1 CERVICAL/ENDOCERVI MAKAYLA CYTO MATERIAL - Edited by: [id number] [facility] Additional Test Information Specimens were tested for high risk HPV using the FDA approved Digene Hybrid ?? Capture II kit, in the Diagnostic Molecular Oncology Lab at [facility] ?? Health Care. ??This test can [...] abnormality. ??We endorse the recommendations of the [place] Society for ?? Colposcopy and Cervical Pathology [...] complexity clinical laboratory testing. ?? Edited by: [id number] - 1324 -SCRPT6 [facility] Diagnosis ThinPrep Pap Test ? Adequacy: Satisfactory for evaluation ? Interpretation: Negative for Intraepithelial Lesion or Malignancy ? Remarks/Recommenda tions: ?? This is the result of a morphological screening test with an inherent ?? possibility of a false negative interpretation. ?? This Pap test was examined in accordance with the [facility] Cytopathology ?? Laboratory written policy, which incorporates all CLIA mandates. Screening ?? guidelines can be found in Am J Clin Pathol 2012;137:516-542. ??We endorse the ?? practice guidelines developed by ASCCP and published in the Journal Lower ?? Genital Tract Disease 17(5):S1-S27 (2012). ? This Pap test was examined by the ThinPrep Imaging System, [employer], [place], [place]. ?- High risk HPV DNA subtypes: NEGATIVE ?? Edited by: [id number] - 2759 -SCRPT6 ?? [id number] - 2283 FERRAROLaurie [facility] Gynecologic Clinical Data Specimen source:, THINPREP (CERVICAL AND ENDOCERVICAL) [facility] Gynecologic Clinical Data Gynecologic findings:, POST MENOPAUSAL [facility] Pathology Codes Client Order Code:, TPHGS3 [facility] Pathology Codes Bill Type:, 3RD [employer] [facility] Completed Report [id number] HPV, HIGH RISK TYPES 1 [facility] Marker 1 TOR GOMES [facility] - [facility] Marker 2 MD SHLOMO NEGATIVE [facility] - [facility] Marker 3 NILM,NILM [facility] Marker 4 RIM,RECEIVED IN MOLECULAR [facility] Marker 5 CRISTY GHOSH-ANDI [facility] Cc Results To COMPA Bishop CREDIT CONTROL ADMINISTRATOR ??[id number] ?? JOHNNY SIU ??[id number] [facility] Signature REPORT SIGNED: TOR LAURA 06/29/14 [facility] Sign Out Audit TOR LAURA [id number] FINAL [place]ÍNLaurie [id number] [facility] Cytology / Unknown 10:55 AM EDT 06/20/2014 10:55 AM EDT us Juliet Napier MD LAB HISTORICAL RESULT S Final Result [facility] [address] [place] [address], [place] * Hepatitis C Antibody w/Reflex to HCV RNA, Quantitative PCR (03/03/2014 2:31 PM EST) Hepatitis C Antibody NON-REACTI VE NON-REACT CRISTINA [facility] Signal To Cut-Off 0.06 <1.00 [facility] 03/03/2014 2:31 PM EST 03/03/2014 3:50 PM EST [facility] LAB BLOOD ORDERABLES Final Resul t ENEIDA MCGARRY from Last 3 Months or Most Recently Relevant to Health Maintenance Insurance [place] Advance Directives Documents on File Type Date Recorded Patient Pressurizer Expl anation Advance Directive 09/12/2014 12:00 AM [facility] dical Dec Making (Adv.Dir) Care Teams Oral And Maxillofacial Pathologist Relationship Specialty Start Date End Date Barbara Victor [address] [place] [address] [place] [address] PCP - General Internal Medicine 06/24/17
--- OUTSIDE RECORDS SUMMARY | 2024-04-20 07:12 | XMS_ITS | Encounter Summary ---
Author Organization [facility] Address [address] [place] [address] Care Team Providers Care Assistant Professor Of Criminal Justice Name Role Phone Barbara Victor Primary Care Provider [phone] Encounter Details Date Type Department Care Team (Late st Contact Info) Description 07/02/2016 Orders Only [facility] [address] [address] 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 MD [address] [place] [address] Social History Tobacco Use Types Packs/Day Years [...] on filedocumented in this encounter Care Teams Assistant Professor Of Criminal Justice Relationship Specialty Start Date End Date Barbara Victor [address] [place] [address] [place] [address] PCP - General Internal Medicine 06/24/17 documented as of this encounter
--- OUTSIDE RECORDS SUMMARY | 2024-04-20 07:12 | XMS_ITS | Clinical Summary ---
Author Organization [facility] Address [address] [id number] Care Team Providers Care Rn Practitioner Name Role Phone Anderson Sanchez Primary Care Provider [phone] Allergies No known active allergies Medications Diclofenac-Mis [...] complete this topic Zoster (Zostavax) Discontinued Insurance [facility] FEE FOR SERVICE PPO * Guarantor: [employer] Account Type Relation to Patient Date of Phone Billing Address [employer] [address] [place] [address] [employer] Care Teams Rn Practitioner Relationship Specialty Start Date End Date Anderson Sanchez [address] [address] PCP - General Rheumatology 06/10/12
--- OUTSIDE RECORDS SUMMARY | 2024-04-20 07:12 | XMS_ITS | Encounter Summary ---
Author Organization [facility] Address [address] [place] [address] Care Team Providers Care Sales Engineer Engineered Products Name Role Phone ValenteBarbara Kateylnn Primary Care Provider [phone] Reason for Visit * Reason Onset Date Comments Med Refill 03/30/2021 Encounter Details Date Type Department Care Team (Late st Contact Info) Description 03/30/2021 Telephone [facility] [address] [place] [address] Telephone Intake, Staff Med Refill Social History [...] not request PCP information rather they requested [facility] endo contact info and did not give a reason why. Since endo does not prescribe the med, nurse requested that pt call [employer] to resolve issue. * Telephone Encounter - [...] Pt of Dr. Franklin Almonte calling from [employer] This is her second attempt at trying to get a renewal for pt (Onglyza 5mg) Please call or fax to: Please: use reference #[id number] documented in this encounter Plan of Treatment Not on file documented as of this encounter Visit Diagnoses Not on filedocumented in this encounter Care Teams Sales Engineer [employer]ered Products Relationship Specialty Start Date End Date Barbara Victor [address] [place] [address] dr Supa [place], [place] [address] PCP - General Internal Medicine 06/24/17 documented as of this encounter
--- OUTSIDE RECORDS SUMMARY | 2024-04-20 07:12 | XMS_ITS | Encounter Summary ---
Author Organization [facility] Address [address] [place] [address] Care Team Providers Care Compressed Yeast Supervisor Name Role Phone Barbara Victor Primary Care Provider [phone] Encounter Details Date Type Department Care Team (Late st Contact Info) Description 09/24/2016 Orders Only [facility] [address] [address] 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 MD [address] [place] [phone] Social History Tobacco Use Types Packs/Day Years [...] on filedocumented in this encounter Care Teams Compressed Yeast Supervisor Relationship Specialty Start Date End Date Barbara Victor [address] [place] [address] [place] [address] PCP - General Internal Medicine 06/24/17 documented as of this encounter
--- OUTSIDE RECORDS SUMMARY | 2024-04-20 07:12 | XMS_ITS ---
Author Organization [facility] Nery mullen Simms Address [address] [place] [address] Care Team Providers Care Oyster Tonger Name Role Phone Barbara Victor Primary Care Provider Sergio Montelongo Unavailable [phone] Allergies Allergen (clinical drug ingredient) Drug/Non Drug [...] Ordered Date Performed Result Body Sit e 93363-VHLGXIH NAIL, 6 OR MORE 01/30/2024 N/A 06278-JHHH SKIN LESIONS, OVER 4 01/30/2024 N/A Encounters Encounter Location Date Provider Diagnosis [facility] [address] [address] 01/30/2024 Sergio Malik Type 2 diabetes mellitus [...] Treatment Pending Test Test Name Order Date 58520-[id number] NAIL, 6 OR MORE 01/30/2024 60327-HXJD SKIN LESIONS, OVER 4 01/30/20 24 Next Appt Details Follow Up: prn, Reason: Provider Name:Sergio Malik , 06/22/2024 09:30:00 AM, [address] [place] [address], [phone], Provider Name:Sergio Malik , 08/20/2024 08:45:00 AM, [address] [place] [address], [phone], Procedure Notes * Category Sub-Category Detail Notes [...] use of a nail nipper and/or dremel-type gear grinder, to a more viable healthy nail [...] to maintain effectiveness in symptomatic relief - 27116 Keratoma Treatment Parring or Cutting o f [...] instrumentation by the physician of record - 40875, Q8 Progress Notes * Joanna TSE MDOB:1960 (63 yo F)Acc No.[id number]:01/30/2024 Progress Note Patient:?Joanna TSE Provider:?Sergio Malik DPM :1960???Age:63 Y???Sex:Female D ate:01/30/2024 Address:[address] [place], [place] [id number] Pcp:Barbara Victor Subjective: * Chief Complaints: * [...] walking. ?Marital status: . 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 * Medications:?TakingLeflunomi de Jardiance 25 MG Tablet [...] 8.2 * Examination: ???Ophthalmology Referral: ?DIABETES EYE EXAM?Procedure Performed:?Yes ?Date of Exam Performed?01/16/2024 ?Findings of Diabetic Eye Exam:?no retinopathy?Vascular: ?DP PULSES (B):? 14, B/L.?PT PULSES (B):? 0/4, B/L.?CAPILLARY FILL TIME:? [...] Exam performed:?Yes ?Visual exam of foot performed:?Yes ?Date?01/30/2024 ?Footwear Evaluation?Footwear Evaluation performed:?Yes??? Assessment: * Assessment: 1.?Type 2 diabetes mellitus with diabetic peripheral angiopathy without gangrene - E11.51 (Primary)???2.?Tinea unguium - B35.1???3.?Pain in right toe(s) - M79.674???4.?Pain in left toe(s) - M79.675??? Plan: * Treatment: 2.?Tinea unguium?Procedure: 42970-KBZPNWI NAIL, 6 OR MORE * Procedures:?Debride Nail [...] use of a nail nipper and/or dremel-type gear grinder, to a more viable healthy nail [...] to maintain effectiveness in symptomatic relief - 58090.?Keratoma Treatment:?Parring or Cutting of Benign Hyperkeratotic Lesion(s)?(-57) [...] instrumentation by the physician of record - 30617, Q8.? * Procedure Codes:?95408 DEBRI DE NAIL, 6 OR MORE, Modifiers: XS 97495 TRIM SKIN LESIONS, OVER 4, Modifiers: XS [...]
--- OUTSIDE RECORDS SUMMARY | 2024-04-20 07:12 | XMS_ITS | Encounter Summary ---
Author Organization [facility] Address [address] [place] [address] Care Team Providers Care Thermoplastic Technician Name Role Phone Barbara Victor Primary Care Provider [phone] Encounter Details Date Type Department Care Team (Late st Contact Info) Description 03/25/2016 Orders Only [facility] [address] [address] 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 MD [address] [place] [id number] Social History Tobacco Use Types Packs/Day Years [...] on filedocumented in this encounter Care Teams Thermoplastic Technician Relationship Specialty Start Date End Date Barbara Victor [address] [place] [address] [place] [address] PCP - General Internal Medicine 06/24/17 documented as of this encounter
== END 2024-04-20 07:10 | disposition home or self-care (01) ==
LOC: HO.CT 07:09
PROVIDERS: PCP Internal Medicine; Visit Provider Surgery
DX: K43.9 Ventral hernia without obstruction or gangrene (principal)
CPT/HCPCS: 74176

== ENCOUNTER → 2024-04-20 07:11 | Outpatient (BNV) | payer OTHER, SELFPAY | PROVIDERS: PCP Internal Medicine; Visit Provider Radiology Diagnostic Radiology | DX: K43.9 Ventral hernia without obstruction or gangrene (principal) | CPT/HCPCS: 74176 ==

== ENCOUNTER 2024-05-07 08:53 | Day surgery (SDC) | payer OTHER, SELFPAY ==
[2024-05-07] VITALS (11 sets, daily range): BP systolic 124–165; BP diastolic 65–73; PULSE 78–92; RESP 16; TEMP 36.4–36.6; O2SAT 95–99; BMI 29.3
--- NOTE | 2024-05-07 09:16 | MHC.SHP ---
Pre-Procedural Eval Section A - 24 Hr Update-Section A only Date of Service: 05/07/24 Section B - Complete if H&P > 30 days Chief Complaint: Ventral hernia without obstruction or gangrene Details of Present Illness: A ventral hernia, reducible, on the upper abdomen Relevant Family History (Specify if Yes): No Relevant Social History: None Present Medications: see Short Stay Collaborative assessment Medical History: Significant History (History of hyperparathyroidism, history of thyroid cancer, history of hysterectomy for postmenopausal bleeding, hypertension) History of Previous Operations: Relevant previous surgery/procedure and date(s) (Hysterectomy) Allergies: Allergies Allergy/AdvReac Type Severity Reaction Status Date / Time ciprofloxacin [Cipro] Allergy Intermediate rash Verified 05/07/24 09:03 amlodipine AdvReac Intermediate swelling Verified 05/07/24 09:02 Review of Systems Sugical H&P ROS: Negative: Constitution, Cardiovascular and Respiratory Exam Surgical H&P Exam: Normal: Heart and Normal: Lungs and Significant Findings: Abdomen (Ventral hernia above the umbilicus) Plan Diagnosis/Plan: Unchanged I have reviewed the history and physical and performed a pertinent physical examination on my patient. No changes have occurred unless specified. Time Spent With Patient Time: Total time managing care of this patient today ____ minutes.
[2024-05-07 09:37] LABS: Glucose, Whole Blood 176 mg/dL (60-115)
--- NOTE | 2024-05-07 10:11 | P.CONAN_ITS ---
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 (Acute) Colon cancer screening (Acute) Rupture of right quadriceps tendon (Acute) Epistaxis (Acute) Sinusitis (Acute) Diarrhea (Acute) Breast cancer screening by mammogram (Acute) CKD (chronic kidney disease) stage 3, GFR 30-59 ml/min (Acute) Bilateral hip pain (Acute) Renal calculus, left (Acute) Right shoulder pain (Acute) Vitamin B12 deficiency (Acute) Sinus congestion (Acute) Hypercalcemia (Acute) Osteopenia (Acute) Hyperparathyroidism (Acute) Cough (Acute) Impacted cerumen, left ear (Acute) Postmenopausal bleeding (Acute) Cough (Acute) Dyspnea (Acute) Acute bronchitis (Acute) Uterine myoma (Acute) History of hyperparathyroidism (Acute) Postoperative hypothyroidism (Acute) Vitamin D deficiency (Acute) History of thyroid cancer (Acute) Type 2 diabetes mellitus with hyperglycemia (Acute) Obesity (BMI 30-39.9) (Acute) Rheumatoid arthritis (Acute) Hypercholesterolemia (Acute) Hypertension (Acute) Insomnia (Acute) Past Medical History Medical History (Updated 04/01/24 @ 13:47 by Jaison Frank MD) Abdominal wall hernia Anterolisthesis of cervical spine Methotrexate, halfway, current use History of radioactive iodine thyroid ablation History of hyperparathyroidism Postoperative hypothyroidism Vitamin D deficiency Thyroid cancer Type 2 diabetes mellitus with hyperglycemia Hypothyroid Obesity (BMI 30-39.9) Parotitis History of thyroid cancer Rheumatoid arthritis Hypercholesterolemia Hypertension Insomnia Family History Family History Father CAD (coronary artery disease) Mother Dementia CAD (coronary artery disease) Sister Breast cancer Depression Family history of problems with anesthesia: No Surgical History Surgical History (Updated 05/07/24 @ 09:29 by Delores Marie RN) H/O knee surgery History of hysterectomy History of hysteroscopy History of thyroid surgery History of parathyroid surgery H/O wrist surgery History of tonsillectomy History of section History of Problems with Anesthesia: No Social History Social History Housing: House Are you a primary post acute care nurse practitioner to a significant other at home: No Do you presently have visiting nurse or other home services: No Alcohol intake: current Alcohol intake frequency: holidays/special occasions only Patient Tobacco Use Status: Never used Tobacco Tobacco use type: Cigarette e-Cigarette/Vaping Use: Never Used Second Hand Smoke Exposure: No Use of substances other than those prescribed or required for medical reasons: No Have you been hit, kicked, punched, or otherwise hurt by someone within the past year? If so, by whom?: No Are you DNR?: No Advance Directives: No Advance Directives Information Provided: No Advance Directives on File: No Recently lost weight without trying: No How much weight loss: Not applicable Eating poorly because of decreased appetite: No Nutrition screen score: 0 Nutrition Risks: No Nutritional Risk Patient : No : No Poor oral hygiene: Yes (upper full denture) service: No Current occupational status: employed Current occupational exposures/hazards: No Cognitive needs: No Hearing needs: No Vision needs: Yes Meds Allergies Allergy/AdvReac Type Severity Reaction Status Date / Time ciprofloxacin [Cipro] Allergy Intermediate rash Verified 05/07/24 09:03 amlodipine AdvReac Intermediate swelling Verified 05/07/24 09:02 Home Medications ?Medication ?Instructions ?Recorded ?Confirmed ?Last Taken ?Type misoprostol 200 mcg tablet 200 mcg PO BID 05/29/22 05/07/24 Unknown History empagliflozin 25 mg tablet 25 mg PO DAILY 12/18/23 05/07/24 05/03/24 History (Jardiance) Exam Pertinent Lab Results Pertinent Lab Results: Laboratory Tests 03/09/24 08:03 WBC 5.1 Hgb 15.1 Hct 44.5 Plt Count 179 Sodium 137 Potassium 4.7 Chloride 109 H Carbon Dioxide 23 BUN 29 H Creatinine 1.46 H Assessment and Plan Assessment Anesthesia Assessment: Chart Reviewed Final Anesthetic Review Family History of Problems with Anesthesia: No History of Problems with Anesthesia: No Documented by User: Subha Corona DO 05/07/24 10:14 HPI - Anesthesia Eval Anesthesia Pre-Procedure Meds Is the patient on any of the following meds?: GLP1/DPP4 and SGLT2 Inhib PMFSH Past Medical History Medical History (Updated 04/01/24 @ 13:47 by Jaison Frank MD) Abdominal wall hernia Anterolisthesis of cervical spine Methotrexate, halfway, current use History of radioactive iodine thyroid ablation History of hyperparathyroidism Postoperative hypothyroidism Vitamin D deficiency Thyroid cancer Type 2 diabetes mellitus with hyperglycemia Hypothyroid Obesity (BMI 30-39.9) Parotitis History of thyroid cancer Rheumatoid arthritis Hypercholesterolemia Hypertension Insomnia Family History Family History Father CAD (coronary artery disease) Mother Dementia CAD (coronary artery disease) Sister Breast cancer Depression Family history of problems with anesthesia: No Surgical History Surgical History (Updated 05/07/24 @ 09:29 by Delores Marie RN) H/O knee surgery History of hysterectomy History of hysteroscopy History of thyroid surgery History of parathyroid surgery H/O wrist surgery History of tonsillectomy History of section History of Problems with Anesthesia: No Social History Social History Housing: House Are you a primary post acute care nurse practitioner to a significant other at home: No Do you presently have visiting nurse or other home services: No Alcohol intake: current Alcohol intake frequency: holidays/special occasions on ly Patient Tobacco Use Status: Never used Tobacco Tobacco use type: Cigarette e-Cigarette/Vaping Use: Never Used Second Hand Smoke Exposure: No Use of substances other than those prescribed or required for medical reasons: No Have you been hit, kicked, punched, or otherwise hurt by someone within the past year? If so, by whom?: No Are you DNR?: No Advance Directives: No Advance Directives Information Provided: No Advance Directives on File: No Recently lost weight without trying: No How much weight loss: Not applicable Eating poorly because of decreased appetite: No Nutrition screen score: 0 Nutrition Risks: No Nutritional Risk Patient : No : No Poor oral hygiene: Yes (upper full denture) service: No Current occupational status: employed Current occupational exposures/hazards: No Cognitive needs: No Hearing needs: No Vision needs: Yes Meds Allergies Allergy/AdvReac Type Severity Reaction Status Date / Time ciprofloxacin [Cipro] Allergy Intermediate rash Verified 05/07/24 09:03 amlodipine AdvReac Intermediate swelling Verified 05/07/24 09:02 Home Medications ?Medication ?Instructions ?Recorded ?Confirmed ?Last Taken ?Type misoprostol 200 mcg tablet 200 mcg PO BID 05/29/22 05/07/24 Unknown History empagliflozin 25 mg tablet 25 mg PO DAILY 12/18/23 05/07/24 05/03/24 History (Jardiance) Exam Exam Date and Time: 05/07/24 1010 Height,Weight and Vital Signs: Height 5 ft 2.5 in Weight 73.936 kg Airway Mallampati Class: III (small mouth opening) TM Dist: >3cm Neck ROM: Full Denture: Upper Heart: S1S2 Lungs: CTAB Assessment and Plan Assessment Anesthesia Assessment: Anesthesia Plan Discussed and Chart Reviewed Final Anesthetic Review Family History of Problems with Anesthesia: No History of Problems with Anesthesia: No NPO: Yes ASA Class: III Final Preanesthetic Review: No Changes in Pt Med Stat, Meds/Allgs Chart Revi ewed, Consent Obtained/Reviewed and Anes Risks/Benef Reviewed Patient Risk: Intermediate Procedure Risk: Low Anesthetic Plan Anesthetic Plan: GA and Agree w/ Assess. and Plan Disposition: Standard PACU
[2024-05-07] MEDS: Lactated Ringers 1,000 ML 100 ML IVCONT (10:15)
[2024-05-07] MEDS: ceFAZolin Sodium/Dextrose,Iso 2 GM/50 ML PIGGYBACK IV (10:40)
--- NOTE | 2024-05-07 11:17 | P.OP_ITS ---
Operative Note Operative Note Date of Service: 05/07/24 Narrative: Preop diagnosis: Ventral hernia, in the epigastric area, reducible Postop diagnosis: The same, diameter about 4 cm Procedure: Repair of ventral hernia with large size Ventralex mesh Surgeon: Jaison Frank MD assistant center manager: TOYA Bansal The patient is a 63-year-old female with a reducible hernia above the umbilicus. She wanted to proceed with the repair. She understood the technique of the planned procedure as well as the risks, benefits, and alternatives She was brought to the operating room. She was placed supine under general anesthesia via laryngeal mask airway. The abdomen was prepped and draped in the usual sterile fashion. A surgical time-out was done. The patient received cefazolin 2 g IV preoperatively I infiltrated the planned line of incision with lidocaine 1%. I made a short midline incision on the skin overlying this hernia with a blade 15. This was carried down with electrocautery through the full-thickness of the skin and subcutaneous fat until the hernia was entered. This was completely reduced. There was no bowel adherent to the surrounding fascia. There was 1 band of omentum in the inferior aspect near the fascial defect which I divided with electrocautery I applied Junior clamps on the fascial defect examined the underside. There were no bowel loops nor other adhesions in the area The defect measured about 4 cm in dimension so I used a large size Ventralex mesh. I applied 4 quadrant parachute type sutures of the fascia and through the Prolene side of the mesh using Prolene 2 sutures. I then positioned the mesh flat under the fascial defect. This was flattened to make sure that there was good overlap of the fascial defect. We then tightened the trans fascial sutures to secure the mesh circumferentially I then closed the fascial defect with a Maxon 1 running stitch. I made sure that there were no bowel loops caught by the sutures nor trapped between the fascia and the mesh. I irrigated. The subcutaneous layer was reapposed with Polysorb 3-0 simple interrupted sutures. Skin closure was achieved with Polysorb 4-0 subcuticular running sutures. The area was infiltrated with Marcaine 0.5% for postop analgesia Dressings were applied. The procedure was completed The patient tolerated procedure well. There were no immediate complications. Initial and final counts of sponges and instruments were correct. Estimated blood loss was about 10 cc The patient was extubated without difficulty and transferred to the recovery room with stable vital signs.
[2024-05-07] MEDS: Haloperidol Lactate 5 MG/ML VIAL 1 MG IVPUSH (11:45)
[2024-05-07] MEDS: fentaNYL citrate/PF 100 MCG/2 ML VIAL 50 MCG IVPUSH ×2 (11:47→11:52)
[2024-05-07] MEDS: HYDROmorphone HCl 0.5 MG/0.5 ML SYRINGE IVPUSH ×2 (12:05→12:14)
== END 2024-05-07 13:44 | disposition home or self-care (01) ==
PROVIDERS: PCP Internal Medicine; Visit Provider Surgery
PROC: (CPT 49593; principal; 2024-05-07 10:40)
DX: K43.9 Ventral hernia without obstruction or gangrene (principal); M06.9 Rheumatoid arthritis, unspecified; E11.65 Type 2 diabetes mellitus with hyperglycemia; I10 Essential (primary) hypertension; E78.00 Pure hypercholesterolemia, unspecified; E55.9 Vitamin D deficiency, unspecified; E89.0 Postprocedural hypothyroidism; Z85.850 Personal history of malignant neoplasm of thyroid; Z79.84 Long term (current) use of oral hypoglycemic drugs; Z79.631 Long term (current) use of antimetabolite agent; Z79.899 Other long term (current) drug therapy; Z88.1 Allergy status to other antibiotic agents; Z88.8 Allergy status to other drugs, medicaments and biological substances
CPT/HCPCS: 49593; 82947; C1781; J0131; J0690; J1100; J1171; J1630; J2003; J2250; J2405; J2704; J2795; J3010

== ENCOUNTER → 2024-05-07 08:53 | Outpatient (BNV) | payer OTHER, SELFPAY | PROVIDERS: PCP Internal Medicine; Visit Provider Surgery | DX: K43.2 Incisional hernia without obstruction or gangrene (principal) | CPT/HCPCS: 49593 ==

== ENCOUNTER 2024-05-20 08:52 | Outpatient (AMB) | payer OTHER, SELFPAY ==
--- NOTE | 2024-05-20 08:53 | MHC.OFFVIS ---
Vital Signs 05/20/24 09:00 Weight 164 lb BP 151/70 H Blood Pressure Location Rt brachial Position Sitting Pulse 75 Intake Visit Reasons: S/P ventral hernia poss. mesh Intake Note: Patient here s/p repair of ventral hernia with large size Ventralex mesh. Reports incision healing well. Patient c/o: no longer taking rx pain meds. Steri strips in place. 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 mesh: Details: She underwent repair of a large incisional hernia with mesh last 05/07/2024. She tolerated procedure well. She says she currently is doing well at home and denies significant complaints. 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 History of radioactive iodine thyroid ablation History of hyperparathyroidism Postoperative hypothyroidism Vitamin D deficiency Thyroid cancer Type 2 diabetes mellitus with hyperglycemia Hypothyroid Obesity (BMI 30-39.9) Parotitis History of thyroid cancer Rheumatoid arthritis Hypercholesterolemia Hypertension Insomnia Surgical History H/O knee surgery History of hysterectomy History of hysteroscopy History of thyroid surgery History of parathyroid surgery H/O wrist surgery History of tonsillectomy History of section Family History Father CAD (coronary artery disease) Mother Dementia CAD (coronary artery disease) Sister Breast cancer Depression Social History Housing: House Are you a primary adult daycare coordinator to a significant other at home: No Do you presently have visiting nurse or other home services: No Alcohol intake: current Alcohol intake frequency: holidays/special occasions only Patient Tobacco Use Status: Never used Tobacco Tobacco use type: Cigarette e-Cigarette/Vaping Use: Never Used Second Hand Smoke Exposure: No service: No Current occupational status: employed Current occupational exposures/hazards: No Cognitive needs: No Hearing needs: No Vision needs: Yes Female Reproductive History Menstrual Age of Menarche: 12 Review of Systems Const Denies chills and Denies fever(s) Card Denies chest pain, Denies dyspnea and Denies dyspnea on exertion Resp Denies cough, Denies dyspnea and Denies dyspnea on exertion GI Denies hematochezia and Denies change in bowel habits Denies hematuria Musc Denies back pain and Denies limited range of motion Neuro Denies focal weakness and Denies convulsions Psych Denies depression and Denies mood swings Physical Exam Vital Signs: Last Vital Signs Pulse 75 05/20/24 09:00 BP 151/70 H 05/20/24 09:00 Const General: comfortable and no acute distress Resp Effort & Inspection: normal respiratory effort GI Other: Incision well healed, repair intact Palpation (GI): Soft to palpation, not firm, nontender and no guarding Assessment & Plan Assessment & Plan (1) Abdominal wall hernia: Code(s): K43.9 - Ventral hernia without obstruction or gangrene Category: Medical Plan: Status post repair with mesh. She is doing very well postoperatively. The repair site is intact. The incision is well healed I advised her to avoid lifting than 20 lb for at least 2-3 more weeks. She can otherwise follow up on a p.r.n. basis. Coding Level of Care Code Global (44891) Diagnoses Abdominal wall hernia K43.9
[2024-05-20 09:00] VITALS: BP 151/70; PULSE 75
--- OUTSIDE RECORDS SUMMARY | 2024-05-20 09:21 | XMS_ITS | Encounter Summary ---
Author Organization [facility] Address [address] [place] [address] Care Team Providers Care Administrative Operations Coordinator Name Role Phone Barbara Victor Katelynn Primary Care Provider [phone] Reason for Visit * Reason Comments Med Refill Encounter Details Date Type Department Care Team (Late st Contact Info) Description 05/03/2024 Refill [facility] [address] [place] [address] Lacing Presser: Caridad Julian MD [address] [place] [address] Social History Tobacco Use Types Packs/Day Years Used Date Smoking Tobacco: Former Passive Smoke Exposure: Past Smokeless Tobacco: Never Comments:: Alcohol Use Standard [...] encounter Miscellaneous Notes * Telephone Encounter - DANDRE Oliva - 05/05/2024 3:12 PM EDT Last rx was 05/27/23 dr. De La Paz, no follow up has been scheduled... Who is going to be seeing this patient? documented in this encounter Plan of Treatment Not on file documented as of this encounter Visit Diagnoses Not on filedocumented in this encounter Care Teams Administrative Operations Coordinator Relationship Specialty Start Date End Date Barbara Victor [address] [place] [address] dr Supa [place], [place] [address] PCP - General Internal Medicine 06/24/17 documented as of this encounter
--- OUTSIDE RECORDS SUMMARY | 2024-05-20 09:22 | XMS_ITS | Encounter Summary ---
Author Organization [facility] Address [address] [place] [address] Care Team Providers Care Trailer Steerer Name Role Phone Barbara Victor Primary Care Provider [phone] Encounter Details Date Type Department Care Team (Late st Contact Info) Description 03/25/2016 Orders Only [facility] [address] [address] 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 MD [address] [place] [id number] Social History Tobacco Use Types Packs/Day Years [...] on filedocumented in this encounter Care Teams Trailer Steerer Relationship Specialty Start Date End Date Barbara Victor [address] [place] [address] [place] [address] PCP - General Internal Medicine 06/24/17 documented as of this encounter
--- OUTSIDE RECORDS SUMMARY | 2024-05-20 09:22 | XMS_ITS | Clinical Summary ---
Author Organization [facility] Address [address] [place] [address] Care Team Providers Care Formation Testing Operator Name Role Phone ValenteBarbara Katelynn Primary [...] complication, without long-term current use of insulin (HCC) 1 strip daily. 100 strip 3 [...] specimen 04/26. Nodes looked abnormal during surgery. 6/7 nodes positive for PTC. RIGGINS 90 mCi [...] in February. Rheumatoid arthritis 10/16/2008 Overview (11/01/2016): ui developer Dr. 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 Problems Problem Noted Date Diagnosed Date Resolved Date Hyperkalemia 04/08/2019 02/08/2020 High risk medication use 12/31/2016 Primary hyperparathyroidism 11/29/2015 11/30/2016 Encounters Date Type Department Care Team Description 05/03/2024 Refill [facility] [address] [place] [address] Community Service Officer: Caridad Julian MD from Last 3 Months Immunizations Immunization Administration Dates Next Due Influenza, [...] 2023 09/18/2021, 11/09/2020, 02/21/2020, Additional history exists Alcohol/Substance Use Screening 02/11/2024 Depression Screening and Follow-Up 02/11/2024 Social Drivers of Health Annual Screening 02/11/2024 Influenza Vaccine (Season Ended) 2024 11/29/2021, 11/23/2020, 11/17/2019, Additional history exists RSV Vaccine (60+ years old and patients) (1 - 1-dose 75+ series) 08/13/2034 Hepatitis C Screening Completed 03/03/2014 Hepatitis B Vaccines Aged Out No long er eligible based on patient's age to complete this topic Procedures * Due to [place] [employer] law, this organization might not be sharing negative HIV tests. Procedure Name Priority Date/Time Associated Diagnosis Comments MICROALBUMIN, RANDOM URINE WITH CREATININE Routine 01/24/2020 9:14 AM EST Stage 3b chronic kidney disease BASIC METABOLIC PANEL, OUTSIDE LAB Routine 08/30/2019 HEMOGLOBIN A1C Routine 05/28/2017 3:55 PM EDT Type 2 diabetes mellitus without complication, without long-term current use of insulin DIABETES EYE EXAM Routine 07/31/2016 9:16 AM EDT MAMMOGRAPHY Routine 05/15/2016 12:00 AM EDT PAP W/HPV, CONVERSION Routine 06/17/2014 10:55 AM EDT HEPATITIS C ANTIBODY W/REFLEX TO HCV RNA, QUANTITATIVE PCR Routine 03/03/2014 2:31 PM EST from Last 3 Months or Most Recently Relevant to Health Maintenance Results * Due to [place] [employer] law, this organization might not be sharing negative HIV tests. * (ABNORMAL) Microalbumin/Creatinine Urine Ratio, Random (01/24/2020 9:14 AM EST) Microalbumin, Urine 5.0 mg/dL 01/24/2020 11:04 AM EST [facility] Creatinine, Urine 23 15 - 278 mg/dL 01/24/2020 11:04 AM EST [facility] Microalb/Creat Ratio, Random Urine 217.4(H) <30.0 mcg/mgCr 01/24/2020 11:04 AM EST [facility] Comment: Microalbumin Reference Range: Normal ? <30 mcg/mg Creatinine Microalbuminuria ? 30-300 mcg/mg Creatinine Clinical Albuminuria >300 mcg/mg Creatinine Reference: ADA Guideline. Diabetes Care. 2004;27 (suppl 1) Urine Voided urine specimen / Unknown Non-Blood Collection / Unknown 01/24/2020 9:14 AM EST 01/24/2020 10:30 AM EST us Meaghan Ziegler MD LAB URINE ORDERABLES Final Res ult [facility] [address] [place] [address], * (ABNORMAL) Basic Metabolic Panel, Outside Lab (08/30/2019) Potassium 4.9 Creatinine 1.45(H) mg/dL eGFR Non- 37(L) Blood Structure of peripheral vein / Unknown 08/30/2019 us Unknown Provider LAB BLOOD ORDERABLES Final R esult * (ABNORMAL) Hemoglobin A1c (05/28/2017 3:55 PM EDT) Hemoglobin A1C 7.6(H) <5.7 % of total Hgb 05/28/2017 10:49 PM EDT [facility] Comment: For someone without known diabetes, a [...] (MG/DL) 171 (calc) 05/28/2017 10:49 PM EDT [facility] eAG (MMOL/L) 9.5 (calc) 05/28/2017 10:49 PM EDT [facility] Blood specimen (specimen) Structure of peripheral vein / Unknown Venipuncture / Unknown 05/28/2017 3:55 PM EDT 05/28/2017 4:30 PM EDT Narrative [facility] - 05/28/2017 10:49 PM EDT [facility] Received Date:[id number] Jose Manuel Bell MD LAB BLOOD ORDERABLES Final Re sult Performing Organization Address City/[facility]/ZIP Co de Phone Number [address], [place] [address], [facility] [address], [place] [address], * DIABETES EYE EXAM (07/31/2016 9:16 AM EDT) Eye Exam [id number] [facility] MANUAL RESULTS 07/31/2016 9:16 AM EDT Benita Napier MD HEALTH MAINTENANCE Final Resul t Performing Organization Address City/[facility]/ZIP Co de Phone Number [facility] MANUAL RESULTS * MAMMOGRAPHY (05/15/2016 12:00 AM EDT) Mammogram Benign/ there are scattered areas of fibroglandular density . No significant change from prior study 2 OUTSIDE LABORATORY Anatomical Region Laterality Modality Other 05/15/2016 us Historical Conversion Provider HEALTH MAINTENANC E Final Result * Pap w/HPV (06/17/2014 10:55 AM EDT) Path Procedure TPGAS (224771) 1 ?? HPVHR(025213) 1 ?? Edited by: [id number] JOI ?? [id number] [facility] Specimen Labeled As: 1 CERVICAL/ENDOCERVI MAKAYLA CYTO MATERIAL - Edited by: [id number] VALENTE [facility] Additional Test Information Specimens were tested for high risk HPV using the FDA approved Digene Hybrid ?? Capture II kit, in the Diagnostic Molecular Oncology Lab at [facility] ?? Health Care. ??This test can detect [...] abnormality. ??We endorse the recommendations of the [place] Society for ?? Colposcopy and Cervical Pathology [...] laboratory testing. ?? Edited by: [id number] [facility] Diagnosis ThinPrep Pap Test ? Adequacy: Satisfactory for evaluation ? Interpretation: Negative for Intraepithelial Lesion or Malignancy ? Remarks/Recommenda tions: ?? This is the result of a morphological screening test with an inherent ?? possibility of a false negative interpretation. ?? This Pap test was examined in accordance with the [facility] Cytopathology ?? Laboratory written policy, which incorporates all CLIA mandates. Screening ?? guidelines can be found in Am J Clin Pathol 2012;137:516-542. ??We endorse the ?? practice guidelines developed by ASCCP and published in the Journal Lower ?? Genital Tract Disease 17(5):S1-S27 (2013). ? This Pap test was examined by the ThinPrep Imaging System, [employer], [place], [place]. ?- High risk HPV DNA subtypes: NEGATIVE ?? Edited by: [id number] - 8169 -SCRPT6 ?? [id number] - 1916 [place] [facility] Gynecologic Clinical Data Specimen source:, THINPREP (CERVICAL AND ENDOCERVICAL) [facility] Gynecologic Clinical Data Gynecologic findings:, POST MENOPAUSAL [facility] Pathology Codes Client Order Code:, TPHGS3 [facility] Pathology Codes Bill Type:, 3RD [employer] [facility] Completed Report [id number] HPV, HIGH RISK TYPES 1 [facility] Marker 1 TOR GOMES [facility] Marker 2 MD SHLOMO NEGATIVE [facility] Marker 3 NILM,NILM [facility] Marker 4 RIM,RECEIVED IN MOLECULAR [facility] Marker 5 CRISTY GHOSH [facility] Cc Results To COMPA [facility] ??[id number] ?? JOHNNY SIU ??[id number] [facility] Signature REPORT SIGNED: TOR LAURA 06/29/14 [facility] Sign Out Audit TOR LAURA [id number] FINAL [place] [id number] [facility] Cytology / Unknown 5 10:55 AM EDT 06/20/2014 10:55 AM EDT us Juliet Napier MD LAB HISTORICAL RESULT S Final Result [facility] [address] [place] [address], * Hepatitis C Antibody w/Reflex to HCV RNA, Quantitative PCR (03/03/2014 2:31 PM EST) Hepatitis C Antibody NON-REACTI VE NON-REACT CRISTINA [facility] Signal To Cut-Off 0.06 <1.00 [facility] 03/03/2014 2:31 PM EST 03/03/2014 3:50 PM EST Jessi Garcia LAB BLOOD ORDERABLES Final Resul t ENEIDA MCGARRY from Last 3 Months or Most Recently Relevant to Health Maintenance Insurance [employer] Advance Directives Documents on File Type Date Recorded Patient Medical Fee Clerk Expl anation Advance Directive 09/12/2014 12:00 AM Me vora Dec Making (Adv.Dir) Care Teams Formation Testing Operator Relationship Specialty Start Date End Date Barbara Victor [address] [place] [address] [place] [address] PCP - General Internal Medicine 06/24/17
--- OUTSIDE RECORDS SUMMARY | 2024-05-20 09:22 | XMS_ITS | Patient Health Record ---
Author Organization [facility] Address [address] [place] [address] Care Team Providers Care Auto Rental Clerk Name Role Phone Barbara Victor Primary Care Provider Sergio Montelongo Unavailable [phone] Allergies Allergen (clinical drug ingredient) Drug/Non Drug Allergy documented on EMR Reaction Allergy Type Onset Date Status ciprofloxacin Cipro rash Drug Allergy Act danielle Levaquin rash Drug Allergy Active Results Component Value Reference Range Notes HEMOGLOBIN A1C (GLYCOHEMOGLO BIN) Reviewed date:04/02/2024 08:46:38 AM Interpretation: Performing Lab: Notes/Report: HEMOGLOBIN A1C % (HH) 7.2 Reason For Referral No Information Medications Medication SIG (Take, Route, Frequency, Duration) Notes Start Date End Date Status Simvastatin 10 MG 1 tablet in the evening Orally Once a day for 30 day(s) Active Levothyroxine Sodium 112 MCG 1 tablet in the morning on an empty stomach Orally Once a day for 30 day(s) Active Lisinopril 10 MG 1 tablet Orally Once a day for 30 day(s) Not-Taking metFORMIN HCl 500 MG 1 tablet with a meal Orally four times a day Active Terbinafine Not-Taki ng Folic Acid 1 MG 1 tablet Orally Once a day for 30 day(s) Active Ciclopirox Olamine 0.77 % 1 application to affected area Externally to feet Twice a day for 30 days Not-Taking Diclofenac-miSOPROStol 75-0.2 MG 1 tablet with food Orally Twice a day Active Prednisone Temp last day 09/11/21 Not-Taking amLODIPine Besylate Active Methotrexate Sodium 10 MG as directed Orally once a week Not-Taking Jardiance 25 MG 1 tablet Orally Once a day Active Leflunomide & Diclofenac Sod Not-Taking Leflunomide Not-Taki ng Zolpidem Tartrate 10 MG 1 tablet at bedtime as needed Orally Once a day PRN Active Januvia Active Xeljanz 5 MG 1 tablet Orally Twice a day for 30 day(s) Not-Taking Vitamin D 1 tablet Orally Once a day Active Tradjenta 5 MG 1 tablet Orally Once a day Not-Taking Immunizations Vaccine Route Administration Date Status Comme [...] Problem Acquired hammer toe of right foot (70066241652978 05) Other hammer toe(s) (acquired), right foot (M20.41) Active confirmed Problem Type 2 diabetes mellitus with peripheral angiopathy (161215492) Type 2 diabetes mellitus with diabetic peripheral angiopathy without gangrene (E11.51) Active confirmed Problem Acquired hammer toe of left foot (73071516083389 03) Other hammer toe(s) (acquired), left foot (M20.42) Active confirmed Vital Signs Blood pressure diastolic 70 mm Hg 04/02/2024 Height 5ft2.5in in 04/02/2024 Blood pressure systolic 120 mm Hg 04/02/2024 Weight 163 lbs 04/02/2024 BMI 29.33 kg/m2 04/02/2024 Procedures Procedure Date Ordered Date Performed Result Body Sit e 85520-HYOLBBN NAIL, 6 OR MORE 07/15/2023 N/A 71781-YNBE SKIN LESIONS, OVER 4 07/15/2023 N/A 46088-MJKIBZZ NAIL, 6 OR MORE 09/23/2023 N/A 60013-PVSX SKIN LESIONS, OVER 4 09/23/2023 N/A 03395-WSTJMWV NAIL, 6 OR MORE 11/25/2023 N/A 79367-ZUMS SKIN LESIONS, OVER 4 11/25/2023 N/A 24209-ESYPGBE NAIL, 6 OR MORE 01/30/2024 N/A 16601-GJRY SKIN LESIONS, OVER 4 01/30/2024 N/A 19501-LWAMHIZ NAIL, 6 OR MORE 04/02/2024 N/A 59943-EFAP SKIN LESIONS, OVER 4 04/02/2024 N/A Encounters Encounter Location Date Provider Diagnosis [address] [address] 07/15/2023 Sergio Helena Type 2 diabetes mellitus with diabetic peripheral angiopathy without gangrene E11.51 ; Tinea unguium B35.1 ; Pain in right toe(s) M79.674 and Pain in left toe(s) M79.[address] [address] 09/23/2023 Sergio Helena Type 2 diabetes mellitus with diabetic peripheral angiopathy without gangrene E11.51 ; Tinea unguium B35.1 ; Pain in right toe(s) M79.674 and Pain in left toe(s) M79.[address] [address] 11/25/2023 Sergio Helena Type 2 diabetes mellitus with diabetic peripheral angiopathy without gangrene E11.51 ; Tinea unguium B35.1 ; Pain in right toe(s) M79.674 and Pain in left toe(s) M79.[address] [address] 01/30/2024 Sergio Helena Type 2 diabetes mellitus with diabetic peripheral angiopathy without gangrene E11.51 ; Tinea unguium B35.1 ; Pain in right toe(s) M79.674 and Pain in left toe(s) M79.[address] [facility] [address] 04/02/2024 Sergio Malik Type 2 diabetes mellitus with diabetic peripheral angiopathy without gangrene E11.51 ; Tinea unguium B35.1 ; Pain in right toe(s) M79.674 ; Pain in left toe(s) M79.675 ; Other hammer toe(s) (acquired), right foot M20.41 and Other hammer toe(s) (acquired), left foot M20.[address] [address] 11/25/2023 Sergio Malik Assessments Encounter Date Diagnosis (ICD Code) Assessment Notes Treatment Notes Treatment Clinical Notes Section Notes 07/15/2023 Type 2 diabetes mellitus with diabetic [...] E11.51) 01/30/2024 Tinea unguium (ICD-10 - B35.1) 04/02/2024 Type 2 diabetes mellitus with diabetic peripheral angiopathy without gangrene (ICD-10 - E11.51) 04/02/2024 Tinea unguium (ICD-10 - B35.1) 04/02/2024 Pain in right toe(s) (ICD-10 - M79.674) 01/30/2024 Pain in right toe(s) (ICD-10 - [...] in left toe(s) (ICD-10 - M79.675) 04/02/2024 Pain in left toe(s) (ICD-10 - M79.675) 04/02/2024 Other hammer toe(s) (acquired), right foot (ICD-10 - M20.41) Patient Educated with: DIABETIC FOOT CARE INSTRUCTIONS.p df (DIABETIC FOOT CARE INSTRUCTIONS.p df) 04/02/2024 Other hammer toe(s) (acquired), left foot (ICD-10 - M20.42) 07/15/2023 Other 09/23/2023 Other 11/25/2023 Other 01/30/2024 Other 04/02/2024 Other Plan Of Treatment Pending Test Test Name Order Date 93219-LACWKVH NAIL, 6 OR MORE 12/10/2019 10137-CPBZYFE NAIL, 6 OR MORE 02/29/2020 35699-PSQUBYR NAIL, 6 OR MORE 05/30/2020 82766-PLKTXPR NAIL, 6 OR MORE 08/29/2020 17041-CLFDUEC NAIL, 6 OR MORE 11/28/2020 29501-XDXKFWG NAIL, 6 OR MORE 03/06/2021 68758-EUAWDMZ NAIL, 6 OR MORE 06/08/2021 69352-GVGLVLZ NAIL, 6 OR MORE 09/11/2021 11279-IQDQHOB NAIL, 6 OR MORE 12/11/2021 38581-ZMIACWZ NAIL, 6 OR MORE 02/15/2022 67441-JKDCRXE NAIL, 6 OR MORE 05/28/2022 00056-MLFGSGS NAIL, 6 OR MORE 08/16/2022 04859-SSGOEZS NAIL, 6 OR MORE 11/05/2022 07248-FXGHBLY NAIL, 6 OR MORE 01/07/2023 12752-RWQSBHL NAIL, 6 OR MORE 03/11/2023 02782-CTGVXQB NAIL, 6 OR MORE 05/13/2023 56784-WLAISSF NAIL, 6 OR MORE 07/15/2023 51610-RDDTHZA NAIL, 6 OR MORE 09/23/2023 49357-ELAZPFK NAIL, 6 OR MORE 11/25/2023 93311-NIPYDJH NAIL, 6 OR MORE 01/30/2024 55234-YVLBMOR NAIL, 6 OR MORE 04/02/2024 24569-LGBS SKIN LESIONS, OVER 4 04/02/19 99420-QYMV SKIN LESIONS, OVER 4 01/30/20 67923-ILCK SKIN LESIONS, OVER 4 11/25/19 81969-AOXV SKIN LESIONS, OVER 4 09/23/19 99790-ACZJ SKIN LESIONS, OVER 4 07/15/19 82565-TETO SKIN LESIONS, OVER 4 05/13/19 17039-JQAV SKIN LESIONS, OVER 4 03/11/19 16605-XOYQ SKIN LESIONS, OVER 4 01/08/20 23 48730-SFFL SKIN LESIONS, OVER 4 11/06/19 23 15967-DCEZ SKIN LESIONS, OVER 4 08/17/19 23 60020-YEXY SKIN LESIONS, OVER 4 05/29/19 23 41713-TREU SKIN LESIONS, OVER 4 02/15/19 23 57421-PVNM SKIN LESIONS, OVER 4 12/12/19 97570-VOSG SKIN LESIONS, OVER 4 09/12/19 22 95782-CCCU SKIN LESIONS, OVER 4 06/09/19 32687-ICIS SKIN LESIONS, OVER 4 03/06/19 14654-JAHC SKIN LESIONS, OVER 4 11/29/19 98633-IDQT SKIN LESIONS, OVER 4 08/30/19 73845-CWZA SKIN LESIONS, OVER 4 05/31/19 15478-FHQZ SKIN LESIONS, OVER 4 02/28/19 13767-ZXMS SKIN LESIONS, OVER 4 12/10/19 Next Appt Details Provider Name:Sergio Malik , 06/22/2024 09:30:00 AM, [address] [place] [address], [phone], Provider Name:Sergio Malik , 08/20/2024 08:45:00 AM, [address] [facility], [place], [address], Insurance Providers Payer Name Payer Address Payer Phone Subscriber Number Group Number Insured Name Patient Relationship to Insured Coverage Start Date Coverage End Date Blue Benefits [address] [address] [place] [address] [id number] Joanna Tse Self - patient is the insured Medical (General) History Medical History History ICD Code Rheumatoid Arthritis Cancer - Thyroid High blood pressure Rheumatic fever Chicken pox Bone implants/screws CAD type II diabetes Surgical History Surgery Date(Month/Year) Thyroid Surgery 04/26,11/09/21 Broken wrist 05/25 bunion Surgery 2008 1984,1986 Right quad rupture repair 07/23/23 hysterectomy 06/09/2023
--- OUTSIDE RECORDS SUMMARY | 2024-05-20 09:22 | XMS_ITS | Encounter Summary ---
Author Organization [facility] Address [address] [place] [address] Care Team Providers Care Wrapper Caser Name Role Phone ValenteBarbara Katelynn Primary Care Provider [phone] Reason for Visit * Reason Onset Date Comments Med Refill 03/30/2021 Encounter Details Date Type Department Care Team (Late st Contact Info) Description 03/30/2021 Telephone [facility] [address] [place] [address] Telephone Intake, Staff Med Refill Social History [...] not request PCP information rather they requested [facility] endo contact info and did not give a reason why. Since endo does not prescribe the med, nurse requested that pt call [facility] to resolve issue. * Telephone Encounter - [...] Pt of Dr. Franklin Almonte calling from [facility] This is her second attempt at trying to get a renewal for pt (Onglyza 5mg) Please call or fax to: Please: use reference #[id number] documented in this encounter Plan of Treatment Not on file documented as of this encounter Visit Diagnoses Not on filedocumented in this encounter Care Teams Wrapper Caser Relationship Specialty Start Date End Date Barbara Victor [address] [place] [address] dr Supa [place], [place] [address] PCP - General Internal Medicine 06/24/17 documented as of this encounter
--- OUTSIDE RECORDS SUMMARY | 2024-05-20 09:22 | XMS_ITS ---
Author Organization [facility] Address [address] [place] [address] Care Team Providers Care Environmental Health And Safety Intern Name Role Phone Barbara Victor Primary Care Provider Sergio Montelongo Unavailable [phone] Allergies Allergen (clinical drug ingredient) Drug/Non Drug [...] Problem Acquired hammer toe of right foot (1434416829963 105) Other hammer toe(s) (acquired), right foot (M20.41) Active confirmed Problem Acquired hammer toe of left foot (2753492505988 103) Other hammer toe(s) (acquired), left foot (M20.42) Active confirmed Vital Signs Height 5ft2.5in in 04/02/2024 Weight 163 lbs 04/02/2024 BMI 29.33 kg/m2 04/02/2024 Blood pressure systolic 120 mm Hg 04/02/19 25 Blood pressure diastolic 70 mm Hg 025 Procedures Procedure Date Ordered Date Performed Result Body Sit e 72209-ETKXASY NAIL, 6 OR MORE 04/02/2024 N/A 25978-WGAT SKIN LESIONS, OVER 4 04/02/2024 N/A Encounters Encounter Location Date Provider Diagnosis [facility] [address] [place] [address] 04/02/2024 Sergio Malik Type 2 diabetes mellitus [...] INSTRUCTIONS.pdf) Pending Test Test Name Order Date 55690-KDLPEBU NAIL, 6 OR MORE 04/02/2024 80601-TRKR SKIN LESIONS, OVER 4 04/02/19 25 Next Appt Details Follow Up: prn, Reason: Provider Name:Sergio Malik , 06/22/2024 09:30:00 AM, [address] [place] [address], [phone], Provider Name:Sergio Malik , 08/20/2024 08:45:00 AM, [address] [place] [address], [phone], Procedure Notes * Category Sub-Category Detail Notes [...] use of a nail nipper and/or dremel-type surface grinder tender, to a more viable healthy nail plate [...] to maintain effectiveness in symptomatic relief - 52151 Keratoma Treatment Parring or Cutting o f [...] instrumentation by the physician of record - 14861, Q8 Progress Notes * Joanna TSE MDOB:1960 (63 yo F)Acc No.[id number]:04/02/2024 Progress Note Patient:?Joanna TSE Provider:?Sergio Malik DPM :1960???Age:63 Y???Sex:Female D ate:04/02/2024 Address:[address] [place], [place] [address] Pcp:Barbara Victor Subjective: * Chief Complaints: * [...] ?Exercise: yes, walking. ?Marital status: . ?Occupation: [employer]. * Medications:?TakingJanuvia J ardiance 25 MG Tablet [...] Worse (4)??? Plan: * Treatment: 2.?Tinea unguium?Procedure: 30134-ERIXLUA NAIL, 6 OR MORE 3.?Other hammer toe(s) [...] use of a nail nipper and/or dremel-type surface grinder tender, to a more viable healthy nail plate [...] to maintain effectiveness in symptomatic relief - 71992.?Keratoma Treatment:?Parring or Cutting of Benign Hyperkeratotic Lesion(s)?(-57) [...] instrumentation by the physician of record - 09433, Q8.? * Procedure Codes:?68151 DEBRI DE NAIL, 6 OR MORE, Modifiers: XS 00486 TRIM SKIN LESIONS, OVER 4, Modifiers: XS [...] Malik DPM Date:?2024 Generated for Joao patterson/Erin/Laxmi on:?05/20/2024 09:22 AM EDT History and Physical Notes * [...] No Charcot romy apse/destruction noted at [facility] FOOTWEAR EVALUATION: good condition , wo rn, non-supportive, shoe gear properties exacerbate patient's foot/toe [...]
--- OUTSIDE RECORDS SUMMARY | 2024-05-20 09:22 | XMS_ITS | Encounter Summary ---
Author Organization [facility] Address [address] [place] [address] Care Team Providers Care Suspender Cutter Name Role Phone Barbara Victor Primary Care Provider [phone] Encounter Details Date Type Department Care Team (Late st Contact Info) Description 09/24/2016 Orders Only [facility] [address] [address] 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 MD [address] [place] [id number] Social History Tobacco Use Types Packs/Day Years [...] on filedocumented in this encounter Care Teams Suspender Cutter Relationship Specialty Start Date End Date Barbara Victor [address] [place] [address] [place] [address] PCP - General Internal Medicine 06/24/17 documented as of this encounter
--- OUTSIDE RECORDS SUMMARY | 2024-05-20 09:22 | XMS_ITS | Referral Summary ---
Author Organization [facility] Address [address] [place] [address] Care Team Providers Care Carpenter Form Name Role Phone Barbara Victor Primary Care Provider [phone] Encounters Date Type Department Care Team Description 05/03/2024 [facility] [address] [place] [address] Facetor: Caridad Julian MD from Last 3 Months Allergies Active Allergy Reactions Criticality Noted Date [...] again try to schedule her with Dr. Deulca. I am concerned about her continuing to [...] intermediate and high risk for recurrence in 2017. I scheduled her for another neck ultrasound. [...] in February. 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 Problems [...] Not on file Procedures * Due to [place] Soci A[employer] law, this organization might not be sharing [...] to Health Maintenance Results * Due to [place] Soci Ads law, this organization might not be sharing negative HIV tests. * (ABNORMAL) Microalbumin/Creatinine Urine Ratio, Random (01/24/2020 9:14 AM EST) Microalbumin, Urine 5.0 mg/dL 01/24/2020 11:04 AM EST [facility] Creatinine, Urine 23 15 - 278 mg/dL 01/24/2020 11:04 AM EST [facility] Microalb/Creat Ratio, Random Urine 217.4(H) <30.0 mcg/mgCr 01/24/2020 11:04 AM EST [facility] Comment: Microalbumin Reference Range: Normal ? <30 mcg/mg Creatinine Microalbuminuria ? 30-300 mcg/mg Creatinine Clinical Albuminuria >300 mcg/mg Creatinine Reference: ADA Guideline. Diabetes Care. 2004;27 (suppl 1) Urine Voided urine specimen / Unknown Non-Blood Collection / Unknown 01/24/2020 9:14 AM EST 01/24/2020 10:30 AM EST us Meaghan Ziegler MD LAB URINE ORDERABLES Final Res ult [facility] [address] [place] [address], * (ABNORMAL) Basic Metabolic Panel, Outside Lab (08/30/2019) Potassium 4.9 Creatinine 1.45(H) mg/dL eGFR Non- 37(L) Blood Structure of peripheral vein / Unknown 08/30/2019 us Unknown Provider LAB BLOOD ORDERABLES Final R esult * (ABNORMAL) Hemoglobin A1c (05/28/2017 3:55 PM EDT) Hemoglobin A1C 7.6(H) <5.7 % of total Hgb 05/28/2017 10:49 PM EDT clipkit Comment: For someone without known diabetes, a [...] (MG/DL) 171 (calc) 05/28/2017 10:49 PM EDT [employer] eAG (MMOL/L) 9.5 (calc) 05/28/2017 10:49 PM EDT [employer] [facility] Blood specimen (specimen) Structure of peripheral vein / Unknown Venipuncture / Unknown 05/28/2017 3:55 PM EDT 05/28/2017 4:30 PM EDT Narrative [facility] - 05/28/2017 10:49 PM EDT [facility] Received Date:[id number] Jose Manuel Bell MD LAB BLOOD ORDERABLES Final Re sult [facility] [address], [place] [address], [place] [phone] [employer] [facility] [address], [place] [address], [place] [phone] * DIABETES EYE EXAM (07/31/2016 9:16 AM EDT) Eye Exam [id number] [facility] MANUAL RESULTS 07/31/2016 9:16 AM EDT Benita Napier MD HEALTH MAINTENANCE Final Resul t Performing Organization Address City/[facility]/ZIP Co de Phone Number [facility] MANUAL RESULTS * MAMMOGRAPHY (05/15/2016 12:00 AM EDT) Mammogram Benign/ there are scattered areas of fibroglandular density . No significant change from prior study 2 OUTSIDE LABORATORY Anatomical Region Laterality Modality Other 05/15/2016 us Historical Conversion Provider HEALTH MAINTENANC E Final Result * Pap w/HPV (06/17/2014 10:55 AM EDT) Path Procedure TPGAS (707265) 1 ?? HPVHR(108161) 1 ?? Edited by: [id number] - 9 [id number] ?? [id number] - 1324 -SCRPT6 [facility] Specimen Labeled As: 1 CERVICAL/ENDOCERVI MAKAYLA CYTO MATERIAL - Edited by: [id number] - 4856 HUGHER1 [facility] Additional Test Information Specimens were tested for high risk HPV using the FDA approved Digene Hybrid ?? Capture II kit, in the Diagnostic Molecular Oncology Lab at [facility] ?? Health Care. ??This test [...] abnormality. ??We endorse the recommendations of the [place] Society for ?? Colposcopy and Cervical Pathology [...] complexity clinical laboratory testing. ?? Edited by: [id number] - 1324 BW-SCRPT6 [facility] Diagnosis ThinPrep Pap Test ? Adequacy: Satisfactory for evaluation ? Interpretation: Negative for Intraepithelial Lesion or Malignancy ? Remarks/Recommenda tions: ?? This is the result of a morphological screening test with an inherent ?? possibility of a false negative interpretation. ?? This Pap test was examined in accordance with the [facility] Cytopathology ?? Laboratory written policy, which incorporates all CLIA mandates. Screening ?? guidelines can be found in Am J Clin Pathol 2012;137:516-542. ??We endorse the ?? practice guidelines developed by ASCCP and published in the Journal Lower ?? Genital Tract Disease 17(5):S1-S27 (2013). ? This Pap test was examined by the ThinPrep Imaging System, [employer], [place], [place]. ?- High risk HPV DNA subtypes: NEGATIVE ?? Edited by: [id number] - 1320 -SCRPT6 ?? [id number] FERRAROLaurie [facility] Gynecologic Clinical Data Specimen source:, THINPREP (CERVICAL AND ENDOCERVICAL) [facility] Gynecologic Clinical Data Gynecologic findings:, POST MENOPAUSAL [facility] Pathology Codes Client Order Code:, TPHGS3 [facility] Pathology Codes Bill Type:, 3RD [employer] BILLING [facility] Completed Report [id number] HPV, HIGH RISK TYPES 1 [facility] Marker 1 TOR GOMES [facility] Marker 2 MD SHLOMO NEGATIVE [facility] Marker 3 NILM,NILM [facility] Marker 4 RIM,RECEIVED IN MOLECULAR [facility] Marker 5 CRISTY GHOSH [facility] Cc Results To COMPA GODDARD K. COMMERCIAL GLAZIER ??[id number] ?? JOHNNY SIU ??[id number] [facility] Signature REPORT SIGNED: TOR LAURA 06/29/14 [facility] Sign Out Audit TOR LAURA [id number] FINAL [place] [id number] [facility] Cytology / Unknown 5 10:55 AM EDT 06/20/2014 10:55 AM EDT us Juliet Napier MD LAB HISTORICAL RESULT S Final Result [facility] [address] [place] [address], * Hepatitis C Antibody w/Reflex to HCV RNA, Quantitative PCR (03/03/2014 2:31 PM EST) Hepatitis C Antibody NON-REACTI VE NON-REACT CRISTINA ENEIDA W[place] Signal To Cut-Off 0.06 <1.00 ENEIDA [place] 03/03/2014 2:31 PM EST 03/03/2014 3:50 PM EST Jessi Garcia LAB BLOOD ORDERABLES Final Resul t ENEIDA MCGARRY from Last 3 Months or Most Recently Relevant to Health Maintenance Insurance [employer] Advance Directives Documents on File Type Date Recorded 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
--- OUTSIDE RECORDS SUMMARY | 2024-05-20 09:22 | XMS_ITS | Clinical Summary ---
Author Organization [facility] Address [address] [id number] Care Team Providers Care Sheriff Detective Name Role Phone Anderson Sanchez Primary Care Provider [phone] Allergies No known active allergies Medications Diclofenac-Mis [...] complete this topic Zoster (Zostavax) Discontinued Insurance [facility] FEE FOR SERVICE PPO * Guarantor: JAVED TSE Account Type Relation to Patient Date of Phone Billing Address [employer] [address] [place] [address] EYEMED ACCESS Care Teams Sheriff Detective Relationship Specialty Start Date End Date Anderson Sanchez [address] [address] PCP - General Rheumatology 06/10/12
--- OUTSIDE RECORDS SUMMARY | 2024-05-20 09:22 | XMS_ITS | Encounter Summary ---
Author Organization [facility] Address [address] [place] [address] Care Team Providers Care Seat Cover Cutter Name Role Phone Barbara Victor Primary Care Provider [phone] Encounter Details Date Type Department Care Team (Late st Contact Info) Description 07/02/2016 Orders Only [facility] [address] [address] 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 MD [address] [place] [address] Social History Tobacco Use Types Packs/Day Years [...] on filedocumented in this encounter Care Teams Seat Cover Cutter Relationship Specialty Start Date End Date Barbara Victor [address] [place] [address] [place] [address] PCP - General Internal Medicine 06/24/17 documented as of this encounter
--- OUTSIDE RECORDS SUMMARY | 2024-05-20 09:23 | XMS_ITS ---
Author Organization [facility] Nery mullen [place] Address [address] [place] [address] Care Team Providers Care Beam Saw Operator Name Role Phone Barbara Victor Primary Care Provider Sergio Montelongo Unavailable [phone] Allergies Allergen (clinical drug ingredient) Drug/Non Drug [...] Ordered Date Performed Result Body Sit e 70259-TCIVIMT NAIL, 6 OR MORE 01/30/2024 N/A 20287-NYNK SKIN LESIONS, OVER 4 01/30/2024 N/A Encounters Encounter Location Date Provider Diagnosis [facility] [address] [address] 01/30/2024 Sergio Malik Type 2 diabetes mellitus [...] Treatment Pending Test Test Name Order Date 51902-QFFWETB NAIL, 6 OR MORE 01/30/2024 55951-NPBE SKIN LESIONS, OVER 4 01/30/20 24 Next Appt Details Follow Up: prn, Reason: Provider Name:Sergio Malik , 06/22/2024 09:30:00 AM, [address] [place] [address], [phone], Provider Name:Sergio Malik , 08/20/2024 08:45:00 AM, [address] [place] [address], [phone], Procedure Notes * Category Sub-Category Detail Notes [...] use of a nail nipper and/or dremel-type external grinder tool, to a more viable healthy nail plate [...] to maintain effectiveness in symptomatic relief - 13319 Keratoma Treatment Parring or Cutting o f [...] instrumentation by the physician of record - 01753, Q8 Progress Notes * Joanna TSE MDOB:1960 (63 yo F)Acc No.[id number]:01/30/2024 Progress Note Patient:?Joanna TSE Provider:?Sergio Malik DPM :1960???Age:63 Y???Sex:Female D ate:01/30/2024 Address:[address] [place], [place] [id number] Pcp:Barbara Victor Subjective: * Chief Complaints: * [...] walking. ?Marital status: . 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 * Medications:?TakingLeflunomi de Jardiance 25 MG Tablet [...] - M79.675??? Plan: * Treatment: 2.?Tinea unguium?Procedure: 10481-FNRGPTE NAIL, 6 OR MORE * Procedures:?Debride Nail [...] use of a nail nipper and/or dremel-type external grinder tool, to a more viable healthy nail plate [...] to maintain effectiveness in symptomatic relief - 66226.?Keratoma Treatment:?Parring or Cutting of Benign Hyperkeratotic Lesion(s)?(-57) [...] instrumentation by the physician of record - 23981, Q8.? * Procedure Codes:?42788 DEBRI DE NAIL, 6 OR MORE, Modifiers: XS 56903 TRIM SKIN LESIONS, OVER 4, Modifiers: XS , Q8 * Follow Up:?prn * Images: * Sign off status: Completed true * Provider:?Segrio Malik DPM Date:?2023 Generated for Jooa patterson/Erin/Laxmi on:?05/20/2024 09:22 AM EDT History and [...] noted at [facility] FOOTWEAR EVALUATION: good condition DIGITAL DEFORMITIES: Digital contracture , [...]
== END 2024-05-20 09:10 | disposition home or self-care (01) ==
LOC: HO.HGS 08:52
PROVIDERS: PCP Internal Medicine; Visit Provider Surgery
DX: K43.9 Ventral hernia without obstruction or gangrene (principal)
CPT/HCPCS: 99212

== ENCOUNTER 2024-06-08 09:27 | Outpatient (REF) | payer OTHER, SELFPAY ==
[2024-06-08 09:41] LABS: MANUAL DIFF FLAG NO
--- OUTSIDE RECORDS SUMMARY | 2024-06-08 10:21 | XMS_ITS | Patient Health Record ---
Author [facility] Address [address] [place] [address] Care Team Providers Care Meter Calibrator Name Role Phone Barbara Victor Primary Care Provider eSrgio Montelongo Unavailable [phone] Allergies Allergen (clinical drug ingredient) Drug/Non Drug [...] Problem Acquired hammer toe of right foot (93185798813936 05) Other hammer toe(s) (acquired), right foot (M20.41) Active confirmed Problem Type 2 diabetes mellitus with peripheral angiopathy (007586616) Type 2 diabetes mellitus with diabetic peripheral angiopathy without gangrene (E11.51) Active confirmed Problem Acquired hammer toe of left foot (46825961031004 03) Other hammer toe(s) (acquired), left foot (M20.42) Active confirmed Vital Signs Blood pressure diastolic 70 mm Hg 04/02/2024 Height 5ft2.5in in 04/02/2024 Blood pressure systolic 120 mm Hg 04/02/2024 Weight 163 lbs 04/02/2024 BMI 29.33 kg/m2 04/02/2024 Procedures Procedure Date Ordered Date Performed Result Body Sit e 15026-IOIPUVA NAIL, 6 OR MORE 07/15/2023 N/A 54432-MHJF SKIN LESIONS, OVER 4 07/15/2023 N/A 36778-OPEIUZZ NAIL, 6 OR MORE 09/23/2023 N/A 48251-MXYW SKIN LESIONS, OVER 4 09/23/2023 N/A 53181-OHKUOQC NAIL, 6 OR MORE 11/25/2023 N/A 53098-PNBH SKIN LESIONS, OVER 4 11/25/2023 N/A 25099-QAONVAQ NAIL, 6 OR MORE 01/30/2024 N/A 28716-LBKM SKIN LESIONS, OVER 4 01/30/2024 N/A 29684-TSNQZOC NAIL, 6 OR MORE 04/02/2024 N/A 10885-QKHX SKIN LESIONS, OVER 4 04/02/2024 N/A Encounters Encounter Location Date Provider Diagnosis [address] [address] 07/15/2023 Sergio Helena Type 2 diabetes mellitus with diabetic peripheral angiopathy without gangrene E11.51 ; Tinea unguium B35.1 ; Pain in right toe(s) M79.674 and Pain in left toe(s) M79.[address] [address] 09/23/2023 Sergio Helena Type 2 diabetes mellitus with diabetic peripheral angiopathy without gangrene E11.51 ; Tinea unguium B35.1 ; Pain in right toe(s) M79.674 and Pain in left toe(s) M79.[address] [address] 11/25/2023 Sergio Helena Type 2 diabetes mellitus with diabetic peripheral angiopathy without gangrene E11.51 ; Tinea unguium B35.1 ; Pain in right toe(s) M79.674 and Pain in left toe(s) M79.[address] [address] 01/30/2024 Sergio Helena Type 2 diabetes mellitus with diabetic peripheral angiopathy without gangrene E11.51 ; Tinea unguium B35.1 ; Pain in right toe(s) M79.674 and Pain in left toe(s) M79.[address] [facility] [address] 04/02/2024 Sergio Malik Type 2 diabetes mellitus with diabetic peripheral angiopathy without gangrene E11.51 ; Tinea unguium B35.1 ; Pain in right toe(s) M79.674 ; Pain in left toe(s) M79.675 ; Other hammer toe(s) (acquired), right foot M20.41 and Other hammer toe(s) (acquired), left foot M20.[address] [address] 11/25/2023 Sergio Malik Assessments Encounter Date Diagnosis [...] Treatment Pending Test Test Name Order Date 23340-JJTOYMV NAIL, 6 OR MORE 12/10/2019 95945-ZUJMIRY NAIL, 6 OR MORE 02/29/2020 81193-KORUTHJ NAIL, 6 OR MORE 05/30/2020 39714-ENXASAP NAIL, 6 OR MORE 08/29/2020 60991-FJWLVRN NAIL, 6 OR MORE 11/28/2020 77961-HQSIPOV NAIL, 6 OR MORE 03/06/2021 91172-CEIOJYW NAIL, 6 OR MORE 06/08/2021 70320-ANBNKXC NAIL, 6 OR MORE 09/11/2021 27973-KBWRXGK NAIL, 6 OR MORE 12/11/2021 82178-JLNCYEC NAIL, 6 OR MORE 02/15/2022 45458-LTJMQML NAIL, 6 OR MORE 05/28/2022 76129-JMRWJIG NAIL, 6 OR MORE 08/16/2022 20841-OPJOMGO NAIL, 6 OR MORE 11/05/2022 50445-IXSNRAP NAIL, 6 OR MORE 01/07/2023 97437-OACRQQD NAIL, 6 OR MORE 03/11/2023 10862-KUPPLCT NAIL, 6 OR MORE 05/13/2023 73949-PLXAYCN NAIL, 6 OR MORE 07/15/2023 01150-QTRBWYH NAIL, 6 OR MORE 09/23/2023 37756-WRLDBGB NAIL, 6 OR MORE 11/25/2023 22496-XLGEMRO NAIL, 6 OR MORE 01/30/2024 80954-LGKHHJO NAIL, 6 OR MORE 04/02/2024 54336-PWDR SKIN LESIONS, OVER 4 04/02/19 21222-BFEH SKIN LESIONS, OVER 4 01/30/20 34748-HLNI SKIN LESIONS, OVER 4 11/25/19 86720-TZGY SKIN LESIONS, OVER 4 09/23/19 65650-QAGM SKIN LESIONS, OVER 4 07/15/19 30366-XGSA SKIN LESIONS, OVER 4 05/13/19 93563-HTZY SKIN LESIONS, OVER 4 03/11/19 63535-TFWQ SKIN LESIONS, OVER 4 01/08/20 23 86235-UOWG SKIN LESIONS, OVER 4 11/06/19 23 60110-IPGJ SKIN LESIONS, OVER 4 08/17/19 23 89982-YBBF SKIN LESIONS, OVER 4 05/29/19 23 94814-HBYD SKIN LESIONS, OVER 4 02/15/19 23 13264-UASE SKIN LESIONS, OVER 4 12/12/19 32900-PZOO SKIN LESIONS, OVER 4 09/12/19 22 93638-BMPH SKIN LESIONS, OVER 4 06/09/19 63748-OLHT SKIN LESIONS, OVER 4 03/06/19 25333-URKM SKIN LESIONS, OVER 4 11/29/19 14932-OGYD SKIN LESIONS, OVER 4 08/30/19 28933-JIYO SKIN LESIONS, OVER 4 05/31/19 02919-IIMG SKIN LESIONS, OVER 4 02/28/19 45305-PBXZ SKIN LESIONS, OVER 4 12/10/19 Next Appt Details Provider Name:Sergio Malik , 06/22/2024 09:30:00 AM, [address] [place] [address], [phone], Provider Name:Sergio Malik , 08/20/2024 08:45:00 AM, [address] [facility], [place], [address], Insurance Providers Payer Name Payer Address Payer Phone Subscriber Number Group Number Insured Name Patient Relationship to Insured Coverage Start Date Coverage End Date Blue Benefits [address] [address] [place] [address] [id number] Joanna Tse Self - patient is the insured Medical (General) History Medical History History ICD Code Rheumatoid Arthritis Cancer - Thyroid High blood pressure Rheumatic fever Chicken pox Bone implants/screws CAD type II diabetes Surgical History Surgery Date(Month/Year) Thyroid Surgery 04/26,11/09/21 Broken wrist 05/25 bunion Surgery 2008 1984,1986 Right quad rupture repair 07/23/23 hysterectomy 06/09/2023
--- OUTSIDE RECORDS SUMMARY | 2024-06-08 10:21 | XMS_ITS | Encounter Summary ---
Author Organization [facility] Address [address] [place] [address] Care Team Providers Care Project Economist Name Role Phone Barbara Victor Katelynn Primary Care Provider [phone] Reason for Visit * Reason Comments Med Refill Encounter Details Date Type Department Care Team (Late st Contact Info) Description 05/03/2024 Refill [facility] [address] [place] [address] Security Developer: Caridad Julian MD [address] [place] [address] Social History Tobacco Use Types Packs/Day Years [...] on filedocumented in this encounter Care Teams Project Economist Relationship Specialty Start Date End Date Barbara Victor [address] [place] [address] dr Supa [place], [place] [address] PCP - General Internal Medicine 06/24/17 documented as of this encounter
--- OUTSIDE RECORDS SUMMARY | 2024-06-08 10:21 | XMS_ITS | Clinical Summary ---
Author Organization [facility] Address [address] [id number] Care Team Providers Care Automobile Salesman Name Role Phone Anderson Sanchez Primary Care Provider [phone] Allergies No known active allergies Medications Diclofenac-Mis [...] complete this topic Zoster (Zostavax) Discontinued Insurance [facility] FEE FOR SERVICE PPO * Guarantor: JAVED TSE Account Type Relation to Patient Date of Phone Billing Address [employer] [address] [place] [address] EYEMED ACCESS Care Teams Automobile Salesman Relationship Specialty Start Date End Date Anderson Sanchez [address] [address] PCP - General Rheumatology 06/10/12
--- OUTSIDE RECORDS SUMMARY | 2024-06-08 10:22 | XMS_ITS ---
Author Organization [facility] Address [address] [place] [address] Care Team Providers Care Senior Systems Software Engineer Name Role Phone Barbara Victor Primary Care Provider Sergio Montelongo Unavailable [phone] Allergies Allergen (clinical drug ingredient) Drug/Non Drug [...] Ordered Date Performed Result Body Sit e 40803-HPNEAKV NAIL, 6 OR MORE 11/25/2023 N/A 59611-NKMI SKIN LESIONS, OVER 4 11/25/2023 N/A Encounters Encounter Location Date Provider Diagnosis [facility] [address] [address] 11/25/2023 Sergio Malik Type 2 diabetes mellitus [...] Treatment Pending Test Test Name Order Date 27022-FSIBFHV NAIL, 6 OR MORE 11/25/2023 60181-DQAD SKIN LESIONS, OVER 4 11/25/19 24 Next Appt Details Follow Up: prn, Reason: Provider Name:Sergio Loounier , 06/22/2024 09:30:00 AM, [address] [place] [address], [phone], Provider Name:Sergio Malik , 08/20/2024 08:45:00 AM, [address] [place] [address], [phone], Procedure Notes * Category Sub-Category Detail [...] use of a nail nipper and/or dremel-type jig grinder set up operator, to a more viable healthy nail plate or bed tissue 6-10. Silver nitrate used for any petechial bleeding as necessary. Definitive antifungal treatment options have been reviewed and discussed with the patient. The patient chooses, no pharmaceutical tx - 57422 Keratoma Treatment Parring or Cutting o f Benign Hyperkeratotic Lesion(s) (-57) More than 4 Lesions - The Benign hyperkeratotic lesions, as described above were pared, and/or cut utilizing a sterile 15 blade, tissue nippers, and/or dremel - 49387 , Q8 Progress Notes * Joanna TSE MDOB:1960 (63 yo F)Acc No.[id number]:11/25/2023 Progress Note Patient:?Joanna Tse Provider:?Sergio Malik DPM :1960???Age:63 Y???Sex:Female D ate:11/25/2023 Address:[address] [place], [place] [id number] Pcp:Barbara Victor Subjective: * Chief Complaints: * [...] ?Exercise: yes, walking. ?Marital status: . ?Occupation: [employer]. * Medications:?TakingamLODIPin e Besylate Diclofenac-miSOPROStol 75-0.2 MG [...] - M79.675? Plan: * Treatment: 2.?Tinea unguium?Procedure: 82605-XNXBDRF NAIL, 6 OR MORE * Procedures:?Debride Nail 6-10:?Nail debridement?Performance of this nail treatment by a nonprofessional would put this patients foot and overall health at risk. Therefore, nail debridement was performed extensively to reduce/remove overall nail length, girth, thickness, subungual debris, and necrotic tissue, by manual and/or electrical means through the use of a nail nipper and/or dremel-type jig grinder set up operator, to a more viable healthy nail plate or bed tissue 6-10. Silver nitrate used for any petechial bleeding as necessary. Definitive antifungal treatment options have been reviewed and discussed with the patient. The patient chooses, no pharmaceutical tx - 68470.?Keratoma Treatment:?Parring or Cutting of Benign Hyperkeratotic Lesion(s)?(-57) More than 4 Lesions - The Benign hyperkeratotic lesions, as described above were pared, and/or cut utilizing a sterile 15 blade, tissue nippers, and/or dremel - 28632 , Q8.? * Procedure Codes:?07458 DEBRI DE NAIL, 6 OR MORE, Modifiers: XS 03838 TRIM SKIN LESIONS, OVER 4, Modifiers: XS , Q8 * Follow Up:?prn * Images: * Sign off status: Completed true * Provider:?Sergio Malik DPM Date:?2023 Generated for Joao patterson/Erin/Laxmi on:?06/08/2024 10:22 AM EDT History and Physical Notes * [...]
--- OUTSIDE RECORDS SUMMARY | 2024-06-08 10:22 | XMS_ITS ---
Author Organization [facility] Nery mullen [place] Address [address] [place] [address] Care Team Providers Care Family Helper Name Role Phone Barbara Victor Primary Care Provider Sergio Montelongo Unavailable [phone] Allergies Allergen (clinical drug ingredient) Drug/Non Drug [...] Ordered Date Performed Result Body Sit e 44214-YOVVQRE NAIL, 6 OR MORE 01/30/2024 N/A 70065-VVCI SKIN LESIONS, OVER 4 01/30/2024 N/A Encounters Encounter Location Date Provider Diagnosis [facility] [address] [address] 01/30/2024 Sergio Malik Type 2 diabetes mellitus [...] Treatment Pending Test Test Name Order Date 95079-YIFQVIT NAIL, 6 OR MORE 01/30/2024 65101-YHSJ SKIN LESIONS, OVER 4 01/30/20 24 Next Appt Details Follow Up: prn, Reason: Provider Name:Sergio Malik , 06/22/2024 09:30:00 AM, [address] [place] [address], [phone], Provider Name:Sergio Malik , 08/20/2024 08:45:00 AM, [address] [place] [address], [phone], Procedure Notes * Category Sub-Category Detail Notes [...] of a nail nipper and/or dremel-type grinder needle tip, to a more viable healthy nail plate [...] to maintain effectiveness in symptomatic relief - 78779 Keratoma Treatment Parring or Cutting o f [...] instrumentation by the physician of record - 96099, Q8 Progress Notes * Joanna TSE MDOB:1960 (63 yo F)Acc No.[id number]:01/30/2024 Progress Note Patient:?Joanna TSE Provider:?Sergio Malik DPM :1960???Age:63 Y???Sex:Female D ate:01/30/2024 Address:[address] [place], [place] [id number] Pcp:Barbara Victor Subjective: * Chief Complaints: * [...] walking. ?Marital status: . ?Occupation: [employer]. * Medications:?TakingLeflunomi de Jardiance 25 MG Tablet [...] - M79.675??? Plan: * Treatment: 2.?Tinea unguium?Procedure: 03665-ZWMXLDX NAIL, 6 OR MORE * Procedures:?Debride Nail [...] of a nail nipper and/or dremel-type grinder needle tip, to a more viable healthy nail plate [...] to maintain effectiveness in symptomatic relief - 54900.?Keratoma Treatment:?Parring or Cutting of Benign Hyperkeratotic Lesion(s)?(-57) [...] instrumentation by the physician of record - 11781, Q8.? * Procedure Codes:?48404 DEBRI DE NAIL, 6 OR MORE, Modifiers: XS 94505 TRIM SKIN LESIONS, OVER 4, Modifiers: XS [...]
--- OUTSIDE RECORDS SUMMARY | 2024-06-08 10:22 | XMS_ITS | Clinical Summary ---
Author Organization [facility] Address [address] [place] [address] Care Team Providers Care Yarn Spooler Name Role Phone ValenteBarbara Katelynn Primary Care Provider [phone] Allergies Active Allergy Reactions Criticality Noted Date [...] in February. 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 Problems Problem Noted Date Diagnosed Date Resolved Date Hyperkalemia 04/08/2019 02/08/2020 High risk medication use 12/31/2016 Primary hyperparathyroidism 11/29/2015 11/30/2016 Encounters Date Type Department Care Team Description 05/03/2024 Refill [facility] [address] [place] [address] Banking Attorney: Caridad Julian MD from Last 3 Months [...] complete this topic Procedures * Due to [place] [employer] law, this organization might not be sharing [...] to Health Maintenance Results * Due to [place] [employer] law, this organization might not be sharing negative HIV tests. * (ABNORMAL) Microalbumin/Creatinine Urine Ratio, Random (01/24/2020 9:14 AM EST) Microalbumin, Urine 5.0 mg/dL 01/24/2020 11:04 AM EST [facility] Creatinine, Urine 23 15 - 278 mg/dL 01/24/2020 11:04 AM EST [facility] Microalb/Creat Ratio, Random Urine 217.4(H) <30.0 mcg/mgCr 01/24/2020 11:04 AM EST [facility] Comment: Microalbumin Reference Range: Normal ? <30 mcg/mg Creatinine Microalbuminuria ? 30-300 mcg/mg Creatinine Clinical Albuminuria >300 mcg/mg Creatinine Reference: ADA Guideline. Diabetes Care. 2004;27 (suppl 1) Urine Voided urine specimen / Unknown Non-Blood Collection / Unknown 01/24/2020 9:14 AM EST 01/24/2020 10:30 AM EST us Meaghan Ziegler MD LAB URINE ORDERABLES Final Res ult [facility] [address] [place] [address], * (ABNORMAL) Basic Metabolic Panel, Outside Lab (08/30/2019) Potassium 4.9 Creatinine 1.45(H) mg/dL eGFR Non- 37(L) Blood Structure of peripheral vein / Unknown 08/30/2019 us Unknown Provider LAB BLOOD ORDERABLES Final R esult * (ABNORMAL) Hemoglobin A1c (05/28/2017 3:55 PM EDT) Hemoglobin A1C 7.6(H) <5.7 % of total Hgb 05/28/2017 10:49 PM EDT [employer] Comment: For someone without known diabetes, a [...] (MG/DL) 171 (calc) 05/28/2017 10:49 PM EDT [facility] eAG (MMOL/L) 9.5 (calc) 05/28/2017 10:49 PM EDT [facility] Blood specimen (specimen) Structure of peripheral vein / Unknown Venipuncture / Unknown 05/28/2017 3:55 PM EDT 05/28/2017 4:30 PM EDT Narrative [facility] - 05/28/2017 10:49 PM EDT [facility] Received Date:[id number] Jose Manuel Bell MD LAB BLOOD ORDERABLES Final Re sult Performing Organization Address City/[facility]/ZIP Co de Phone Number [address], [place] [address], [facility] [address], [place] [address], * DIABETES EYE EXAM (07/31/2016 9:16 AM EDT) Eye Exam [id number] [facility] MANUAL RESULTS 07/31/2016 9:16 AM EDT Benita Napier MD HEALTH MAINTENANCE Final Resul t Performing Organization Address City/[facility]/ZIP Co de Phone Number [facility] MANUAL RESULTS * MAMMOGRAPHY (05/15/2016 12:00 AM EDT) Mammogram Benign/ there are scattered areas of fibroglandular density . No significant change from prior study 2 OUTSIDE LABORATORY Anatomical Region Laterality Modality Other 05/15/2016 us Historical Conversion Provider HEALTH MAINTENANC E Final Result * Pap w/HPV (06/17/2014 10:55 AM EDT) Path Procedure TPGAS (858173) 1 ?? HPVHR(631113) 1 ?? Edited by: [id number] JOI ?? [id number] BW-SCRPT6 [facility] Specimen Labeled As: 1 CERVICAL/ENDOCERVI MAKAYLA CYTO MATERIAL - Edited by: [id number] VALENTE [facility] - [facility] Additional Test Information Specimens were tested for high risk HPV using the FDA approved Digene Hybrid ?? Capture II kit, in the Diagnostic Molecular Oncology Lab at [facility] ?? Health Care. ??This test can [...] abnormality. ??We endorse the recommendations of the [place] Society for ?? Colposcopy and Cervical Pathology [...] laboratory testing. ?? Edited by: [id number] BW-SCRPT6 [facility] - [facility] Diagnosis ThinPrep Pap Test ? Adequacy: Satisfactory for evaluation ? Interpretation: Negative for Intraepithelial Lesion or Malignancy ? Remarks/Recommenda tions: ?? This is the result of a morphological screening test with an inherent ?? possibility of a false negative interpretation. ?? This Pap test was examined in accordance with the [facility] ?? Laboratory written policy, which incorporates all CLIA mandates. Screening ?? guidelines can be found in Am J Clin Pathol 2012;137:516-542. ??We endorse the ?? practice guidelines developed by ASCCP and published in the Journal Lower ?? Genital Tract Disease 17(5):S1-S27 (2013). ? This Pap test was examined by the ThinPrep Imaging System, [employer], [place], [place]. ?- High risk HPV DNA subtypes: NEGATIVE ?? Edited by: [id number] - 4184 -SCRPT6 ?? [id number] - 2326 [place] [facility] - [facility] Gynecologic Clinical Data Specimen source:, THINPREP (CERVICAL AND ENDOCERVICAL) [facility] - [facility] Gynecologic Clinical Data Gynecologic findings:, POST MENOPAUSAL [facility] - [facility] Pathology Codes Client Order Code:, TPHGS3 [facility] Pathology Codes Bill Type:, 3RD DEMOCRAT BILLING [facility] Completed Report [id number] HPV, HIGH RISK TYPES 1 [facility] - [facility] Marker 1 TOR GOMES [facility] ANATOM[facility] PATHOLOGY - [facility] Marker 2 MD SHLOMO NEGATIVE [facility] - [facility] Marker 3 NILM,NILM [facility] - [facility] Marker 4 RIM,RECEIVED IN MOLECULAR [facility] - [facility] Marker 5 CRISTY GHOSH [facility] Cc Results To COMPA Bishop WIND UP OPERATOR ??[id number] ?? JOHNNY SIU ??[id number] [facility] Signature REPORT SIGNED: TOR LAURA 06/29/14 [facility] Sign Out Audit TOR LAURA [id number] [place] [id number] [facility] Cytology / Unknown 5 10:55 AM EDT 06/20/2014 10:55 AM EDT us Juliet Napier MD LAB HISTORICAL RESULT S Final Result [facility] [address] [place] [address], * Hepatitis C Antibody w/Reflex to HCV RNA, Quantitative PCR (03/03/2014 2:31 PM EST) Hepatitis C Antibody NON-REACTI VE NON-REACT CRISTINA [facility] Signal To Cut-Off 0.06 <1.00 [facility] 03/03/2014 2:31 PM EST 03/03/2014 3:50 PM EST Jessi Garcia LAB BLOOD ORDERABLES Final Resul t ENEIDA MCGARRY from Last 3 Months or Most Recently Relevant to Health Maintenance Insurance [employer] Advance Directives Documents on File Type Date Recorded Patient Rouge Sifter And Miller Expl anation Advance Directive 09/12/2014 12:00 AM Me vora Dec Making (Adv.Dir) Care Teams Yarn Spooler Relationship Specialty Start Date End Date Barbara Victor [address] [place] [address] [place] [address] PCP - General Internal Medicine 06/24/17
--- OUTSIDE RECORDS SUMMARY | 2024-06-08 10:22 | XMS_ITS | Encounter Summary ---
Author Organization [facility] Address [address] [place] [address] Care Team Providers Care Human Relations Teacher Name Role Phone Barbara Victor Primary Care Provider [phone] Encounter Details Date Type Department Care Team (Late st Contact Info) Description 09/24/2016 Orders Only [facility] [address] [address] 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 MD [address] [place] [address] Social History Tobacco Use Types Packs/Day Years [...] on filedocumented in this encounter Care Teams Human Relations Teacher Relationship Specialty Start Date End Date Barbara Victor [address] [place] [address] [place] [address] PCP - General Internal Medicine 06/24/17 documented as of this encounter
--- OUTSIDE RECORDS SUMMARY | 2024-06-08 10:22 | XMS_ITS | Encounter Summary ---
Author Organization [facility] Address [address] [place] [address] Care Team Providers Care Boom Worker Name Role Phone Barbara Victor Primary Care Provider [phone] Encounter Details Date Type Department Care Team (Late st Contact Info) Description 03/25/2016 Orders Only [facility] [address] [address] 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 MD [address] [place] [address] Social History Tobacco Use Types Packs/Day Years [...] on filedocumented in this encounter Care Teams Boom Worker Relationship Specialty Start Date End Date Barbara Victor [address] [place] [address] [place] [address] PCP - General Internal Medicine 06/24/17 documented as of this encounter
--- OUTSIDE RECORDS SUMMARY | 2024-06-08 10:22 | XMS_ITS | Referral Summary ---
Author Organization [facility] Address [address] [place] [address] Care Team Providers Care Coding Quality Coordinator Name Role Phone Barbara Victor Primary Care Provider [phone] Encounters Date Type Department Care Team Description 05/03/2024 Refill [facility] [address] [place] [address] Engraver Block: Caridad Julian MD from Last 3 Months [...] in February. 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 * (ABNORMAL) Microalbumin/Creatinine Urine Ratio, Random (01/24/2020 9:14 AM EST) Microalbumin, Urine 5.0 mg/dL 01/24/2020 11:04 AM EST [facility] Creatinine, Urine 23 15 - 278 mg/dL 01/24/2020 11:04 AM EST [facility] Microalb/Creat Ratio, Random Urine 217.4(H) <30.0 mcg/mgCr 01/24/2020 11:04 AM EST [facility] Comment: Microalbumin Reference Range: Normal ? <30 mcg/mg Creatinine Microalbuminuria ? 30-300 mcg/mg Creatinine Clinical Albuminuria >300 mcg/mg Creatinine Reference: ADA Guideline. Diabetes Care. 2004;27 (suppl 1) Urine Voided urine specimen / Unknown Non-Blood Collection / Unknown 01/24/2020 9:14 AM EST 01/24/2020 10:30 AM EST us Meaghan Ziegler MD LAB URINE ORDERABLES Final Res ult [facility] [address] [place] [address], * (ABNORMAL) Basic Metabolic Panel, Outside Lab (08/30/2019) Potassium 4.9 Creatinine 1.45(H) mg/dL eGFR Non- 37(L) Blood Structure of peripheral vein / Unknown 08/30/2019 us Unknown Provider LAB BLOOD ORDERABLES Final R esult * (ABNORMAL) Hemoglobin A1c (05/28/2017 3:55 PM EDT) Hemoglobin A1C 7.6(H) <5.7 % of total Hgb 05/28/2017 10:49 PM EDT [employer] Comment: For someone without known diabetes, a [...] (MG/DL) 171 (calc) 05/28/2017 10:49 PM EDT [employer] eAG (MMOL/L) 9.5 (calc) 05/28/2017 10:[address] Blood specimen (specimen) Structure of peripheral vein / Unknown Venipuncture / Unknown 05/28/2017 3:55 PM EDT 05/28/2017 4:30 PM EDT Narrative [facility] - 05/28/2017 10:49 PM EDT [facility] Received Date:[id number] Jose Manuel Bell MD LAB BLOOD ORDERABLES Final Re sult [facility] [address], [place] [address], [place] [phone] [employer] [facility] [address], [place] [address], [place] [phone] * DIABETES EYE EXAM (07/31/2016 9:16 AM EDT) Eye Exam [id number] [facility] MANUAL RESULTS 07/31/2016 9:16 AM EDT Benita Napier MD HEALTH MAINTENANCE Final Resul t Performing Organization Address City/[facility]/ZIP Co de Phone Number [facility] MANUAL RESULTS * MAMMOGRAPHY (05/15/2016 12:00 AM EDT) Mammogram Benign/ there are scattered areas of fibroglandular density . No significant change from prior study 2 OUTSIDE LABORATORY Anatomical Region Laterality Modality Other 05/15/2016 us Historical Conversion Provider HEALTH MAINTENANC E Final Result * Pap w/HPV (06/17/2014 10:55 AM EDT) Path Procedure TPGAS ([id number]) 1 ?? HPVHR(390114) 1 ?? Edited by: [id number] - 4 [id number] ?? [id number] - 1324 -SCRPT6 [facility] Specimen Labeled As: 1 CERVICAL/ENDOCERVI MAKAYLA CYTO MATERIAL - Edited by: [id number] - 2770 HUGHER1 [facility] Additional Test Information Specimens were tested for high risk HPV using the FDA approved Digene Hybrid ?? Capture II kit, in the Diagnostic Molecular Oncology Lab at [facility] ?? Health Care. ??This test can [...] abnormality. ??We endorse the recommendations of the [place] Society for ?? Colposcopy and Cervical Pathology [...] complexity clinical laboratory testing. ?? Edited by: [id number] - 1324 BW-SCRPT6 [facility] Diagnosis ThinPrep Pap Test ? Adequacy: Satisfactory for evaluation ? Interpretation: Negative for Intraepithelial Lesion or Malignancy ? Remarks/Recommenda tions: ?? This is the result of a morphological screening test with an inherent ?? possibility of a false negative interpretation. ?? This Pap test was examined in accordance with the [facility] Cyt[facility] ?? Laboratory written policy, which incorporates all CLIA mandates. Screening ?? guidelines can be found in Am J Clin Pathol 2012;137:516-542. ??We endorse the ?? practice guidelines developed by ASCCP and published in the Journal Lower ?? Genital Tract Disease 17(5):S1-S27 (2013). ? This Pap test was examined by the ThinPrep Imaging System, [employer], [place], [place]. ?- High risk HPV DNA subtypes: NEGATIVE ?? Edited by: [id number] - 1325 -SCRPT6 ?? [id number] FERRAROLaurie [facility] Gynecologic Clinical Data Specimen source:, THINPREP (CERVICAL AND ENDOCERVICAL) [facility] Gynecologic Clinical Data Gynecologic findings:, POST MENOPAUSAL [facility] Pathology Codes Client Order Code:, TPHGS3 [facility] Pathology Codes Bill Type:, 3RD GREEN [employer]Y BILLING [facility] Completed Report [id number] HPV, HIGH RISK TYPES 1 [facility] Marker 1 TOR GOMES [facility] - [facility] Marker 2 MD SHLOMO NEGATIVE [facility]ATOM[facility] PATHOLOG[facility] - [facility] Marker 3 NILM,NILM [facility] Marker 4 RIM,RECEIVED IN MOLECULAR [facility] Marker 5 CRISTY GHOSH [facility] - [facility] Cc Results To COMPA GODDARD K. STUDENT OUTREACH COORDINATOR ??[id number] ?? JOHNNY SIU ??[id number] [facility] Signature REPORT SIGNED: TOR LAURA 06/29/14 [facility] Sign Out Audit TOR LAURA [id number] [place] [place] [id number] [facility] Cytology / Unknown 5 10:55 AM EDT 06/20/2014 10:55 AM EDT us Juliet Napier MD LAB HISTORICAL RESULT S Final Result [facility] [address] [place] [address], * Hepatitis C Antibody w/Reflex to HCV RNA, Quantitative PCR (03/03/2014 2:31 PM EST) Hepatitis C Antibody NON-REACTI VE NON-REACT CRISTINA [facility] [place] Signal To Cut-Off 0.06 <1.00 [facility] [place] 03/03/2014 2:31 PM EST 03/03/2014 3:50 PM EST Jessi Garcia LAB BLOOD ORDERABLES Final Resul t ENEIDA MCGARRY from Last 3 Months or Most Recently Relevant to Health Maintenance Insurance [employer] Advance Directives Documents on File Type Date Recorded Patient Culinary Intern Expl anation Advance Directive 09/12/2014 12:00 AM sf Me dical Dec Making (Adv.Dir) Care Teams Coding Quality Coordinator Relationship Specialty Start Date End Date Barbara Victor [address] [place] [address] [place] [address] PCP - General Internal Medicine 06/24/17
--- OUTSIDE RECORDS SUMMARY | 2024-06-08 10:22 | XMS_ITS ---
Author Organization [facility] Nery mullen [place] Address [address] [place] [address] Care Team Providers Care Improvement Coordinator Name Role Phone Barbara Victor Primary Care Provider Sergio Montelongo Unavailable [phone] Allergies Allergen (clinical drug ingredient) Drug/Non Drug [...] Problem Acquired hammer toe of right foot (0236119311815 105) Other hammer toe(s) (acquired), right foot (M20.41) Active confirmed Problem Acquired hammer toe of left foot (8797206718685 103) Other hammer toe(s) (acquired), left foot (M20.42) Active confirmed Vital Signs Height 5ft2.5in in 04/02/2024 Weight 163 lbs 04/02/2024 BMI 29.33 kg/m2 04/02/2024 Blood pressure systolic 120 mm Hg 04/02/19 25 Blood pressure diastolic 70 mm Hg 025 Procedures Procedure Date Ordered Date Performed Result Body Sit e 71778-VSTWJSZ NAIL, 6 OR MORE 04/02/2024 N/A 75811-GMYE SKIN LESIONS, OVER 4 04/02/2024 N/A Encounters Encounter Location Date Provider Diagnosis [facility] [place] [address] [place] [address] 04/02/2024 Sergio Malik Type 2 diabetes mellitus [...] INSTRUCTIONS.pdf) Pending Test Test Name Order Date 42313-FWJLSZJ NAIL, 6 OR MORE 04/02/2024 38837-PALH SKIN LESIONS, OVER 4 04/02/19 25 Next Appt Details Follow Up: prn, Reason: Provider Name:Sergio Malik , 06/22/2024 09:30:00 AM, [address] [place] [address], [phone], Provider Name:Sergio Malik , 08/20/2024 08:45:00 AM, [address] [place] [address], [phone], Procedure Notes * Category Sub-Category Detail Notes [...] use of a nail nipper and/or dremel-type card grinder helper, to a more viable healthy nail plate [...] to maintain effectiveness in symptomatic relief - 22935 Keratoma Treatment Parring or Cutting o f [...] instrumentation by the physician of record - 96517, Q8 Progress Notes * Joanna TSE MDOB:1960 (63 yo F)Acc No.[id number]:04/02/2024 Progress Note Patient:?Joanna TSE Provider:?Sergio Malik DPM :1960???Age:63 Y???Sex:Female D ate:04/02/2024 Address:[address] [place], [place] [address] Pcp:Barbara Victor Subjective: * Chief Complaints: * [...] ?Exercise: yes, walking. ?Marital status: . ?Occupation: [employer]. * Medications:?TakingJanuvia J ardiance 25 MG Tablet [...] Worse (4)??? Plan: * Treatment: 2.?Tinea unguium?Procedure: 66242-YONCMOA NAIL, 6 OR MORE 3.?Other hammer toe(s) [...] use of a nail nipper and/or dremel-type card grinder helper, to a more viable healthy nail plate [...] to maintain effectiveness in symptomatic relief - 46015.?Keratoma Treatment:?Parring or Cutting of Benign Hyperkeratotic Lesion(s)?(-57) [...] instrumentation by the physician of record - 06418, Q8.? * Procedure Codes:?84920 DEBRI DE NAIL, 6 OR MORE, Modifiers: XS 76483 TRIM SKIN LESIONS, OVER 4, Modifiers: XS [...] Malik DPM Date:?2024 Generated for Joao patterson/Erin/Laxmi on:?06/08/2024 10:21 AM EDT History and Physical Notes * [...]
--- OUTSIDE RECORDS SUMMARY | 2024-06-08 10:22 | XMS_ITS | Encounter Summary ---
Author Organization [facility] Address [address] [place] [address] Care Team Providers Care Neck Cutter Name Role Phone Barbara Victor Primary Care Provider [phone] Encounter Details Date Type Department Care Team (Late st Contact Info) Description 07/02/2016 Orders Only [facility] [address] [address] 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 MD [address] [place] [address] Social History Tobacco Use Types Packs/Day Years [...] on filedocumented in this encounter Care Teams Neck Cutter Relationship Specialty Start Date End Date Barbara Victor [address] [place] [address] [place] [address] PCP - General Internal Medicine 06/24/17 documented as of this encounter
--- OUTSIDE RECORDS SUMMARY | 2024-06-08 10:22 | XMS_ITS | Encounter Summary ---
Author Organization [facility] Address [address] [place] [address] Care Team Providers Care Tufting Creeler Name Role Phone ValenteBarbara Katelynn Primary Care Provider [phone] Reason for Visit * Reason Onset Date Comments Med Refill 03/30/2021 Encounter Details Date Type Department Care Team (Late st Contact Info) Description 03/30/2021 Telephone [facility] [address] [place] [address] Telephone Intake, Staff Med Refill Social History [...] not request PCP information rather they requested [facility] endo contact info and did not give a reason why. Since endo does not prescribe the med, nurse requested that pt call [facility] to resolve issue. * Telephone Encounter - [...] Pt of Dr. Franklin Almonte calling from [facility] This is her second attempt at trying to get a renewal for pt (Onglyza 5mg) Please call or fax to: Please: use reference #[id number] documented in this encounter Plan of Treatment Not on file documented as of this encounter Visit Diagnoses Not on filedocumented in this encounter Care Teams Tufting Creeler Relationship Specialty Start Date End Date Barbara Victor [address] [place] [address] dr Supa Cowart, [place] [address] PCP - General Internal Medicine 06/24/17 documented as of this encounter
[2024-06-08 10:58] LABS: Basophils Percent Auto 0.5 % (0-2); Eosinophils Absolute Auto 0.3 X10*3/uL (0.0-0.4); Eosinophils Percent Auto 4.9 % (0-4); Hematocrit 43.2 % (37.0-47.0); Hemoglobin 14.1 g/dl (12.0-16.0); Imm Gran Abs Auto 0.03 X10*3/uL (0.00-0.03); Imm Gran Pct Auto 0.5 % (0.0-0.4); Lymphocytes Absolute Auto 0.9 X10*3/uL (1.2-4.9); Lymphocytes Percent Auto 15.6 % (20-40); Mean Corpuscular HGB Conc 32.6 g/dl (31.0-35.0); Mean Corpuscular Hemoglobin 30.3 pg (27.0-33.0); Mean Corpuscular Volume 92.9 fL (80.0-98.0); Mean Platelet Volume 9.1 fL (9.4-12.3); Monocytes Absolute Auto 0.6 X10*3/uL (0.1-1.2); Monocytes Percent Auto 10.8 % (2-11); Neutrophils Absolute Auto 3.9 x10*3/uL (2.0-8.3); Neutrophils Percent Auto 67.7 % (45-73); Platelet Count 226 X10*3/uL (160-400); Red Blood Count 4.65 X10*6/uL (4.20-5.50); Red Cell Distribution Width 14.6 % (11.0-16.0); White Blood Count 5.7 X10*3/uL (4.8-10.8)
[2024-06-08 11:32] LABS: Blood Urea Nitrogen 26 mg/dL (9-16)
[2024-06-08 11:35] LABS: Alanine Aminotransferase 24 U/L (0-31); Albumin Level 4.3 g/dL (3.5-5.0); Alkaline Phosphatase 96 U/L (39-117); Anion Gap 12 (12-20); Aspartate Amino Transferase 18 U/L (5-31); Bilirubin Total 0.4 mg/dL (0.0-1.0); Blood Urea Nitrogen 24 mg/dL (9-16); C Reactive Protein 1.62 mg/dL (< or = 0.50); Calcium 9.4 mg/dL (8.4-10.2); Carbon Dioxide 22 mmol/L (22-29); Chloride 108 mmol/L (96-108); Estimated Glomerular Filt Rate 46; Glucose Random 223 mg/dL (60-115); Potassium 4.4 mmol/L (3.3-5.1); Sodium 138 mmol/L (135-145); Total Protein 7.1 g/dL (6.5-8.0)
[2024-06-08 11:37] LABS: Erythrocyte Sedimentation Rate 20 MM/HR (0-20)
== END 2024-06-08 09:28 | disposition home or self-care (01) ==
LOC: HO.LAB 09:27
PROVIDERS: Absent Provider Student in an Organized Health Care Education/Training Program; PCP Internal Medicine; Visit Provider Internal Medicine Nephrology
DX: M05.79 Rheumatoid arthritis with rheumatoid factor of multiple sites without organ or systems involvement (principal); I12.9 Hypertensive chronic kidney disease with stage 1 through stage 4 chronic kidney disease, or unspecified chronic kidney disease; N18.31 Chronic kidney disease, stage 3a; N20.0 Calculus of kidney
CPT/HCPCS: 36415; 80053; 84520; 85025; 85652; 86140

== ENCOUNTER 2024-06-17 07:21 | Outpatient (AMB) | payer OTHER, SELFPAY ==
--- OUTSIDE RECORDS SUMMARY | 2024-06-17 07:23 | XMS_ITS | Encounter Summary ---
Author Organization [facility] Address [address] [place] [address] Care Team Providers Care Class B Driver Name Role Phone ValenteBarbara Katelynn Primary Care Provider [phone] Reason for Visit * Reason Onset Date Comments Med Refill 03/30/2021 Encounter Details Date Type Department Care Team (Late st Contact Info) Description 03/30/2021 Telephone [facility] Patient Access Center [address] [place] [address] Telephone Intake, Staff Med Refill Social History [...] not request PCP information rather [facility] contact info and did not give a reason why. Since endo does not prescribe the med, nurse requested that pt call [employer] to resolve issue. * Telephone Encounter - [...] Pt of Dr. Franklin Almonte calling from [employer] This is her second attempt at trying to get a renewal for pt (Onglyza 5mg) Please call or fax to: Please: use reference #[id number] documented in this encounter Plan of Treatment Not on file documented as of this encounter Visit Diagnoses Not on filedocumented in this encounter Care Teams Class B Driver Relationship Specialty Start Date End Date Barbara Victor [address] [place] [address] dr Supa Cowart, [place] [address] PCP - General Internal Medicine 06/24/17 documented as of this encounter
--- OUTSIDE RECORDS SUMMARY | 2024-06-17 07:23 | XMS_ITS | Referral Summary ---
Author Organization [facility] Address [address] [place] [address] Care Team Providers Care Manager Publishing Name Role Phone Barbara Victor Primary Care Provider [phone] Encounters Date Type Department Care Team Description 05/03/2024 Refill [facility] [address] [place] [address] Building Energy Consultant: Caridad Julian MD from Last 3 Months [...] in February. 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 Problems [...] Not on file Procedures * Due to [place] Plan[employer] law, this organization might not be sharing [...] to Health Maintenance Results * Due to [place] Plan[employer] law, this organization might not be sharing negative HIV tests. * (ABNORMAL) Microalbumin/Creatinine Urine Ratio, Random (01/24/2020 9:14 AM EST) Microalbumin, Urine 5.0 mg/dL 01/24/2020 11:04 AM EST [facility] Creatinine, Urine 23 15 - 278 mg/dL 01/24/2020 11:04 AM EST [facility] Microalb/Creat Ratio, Random Urine 217.4(H) <30.0 mcg/mgCr 01/24/2020 11:04 AM EST [facility] Comment: Microalbumin Reference Range: Normal ? <30 mcg/mg Creatinine Microalbuminuria ? 30-300 mcg/mg Creatinine Clinical Albuminuria >300 mcg/mg Creatinine Reference: ADA Guideline. Diabetes Care. 2004;27 (suppl 1) Urine Voided urine specimen / Unknown Non-Blood Collection / Unknown 01/24/2020 9:14 AM EST 01/24/2020 10:30 AM EST us Meaghan Zieglre MD LAB URINE ORDERABLES Final Res ult [facility] [address] [place] [address], * (ABNORMAL) Basic Metabolic Panel, Outside Lab (08/30/2019) Potassium 4.9 Creatinine 1.45(H) mg/dL eGFR Non- 37(L) Blood Structure of peripheral vein / Unknown 08/30/2019 us Unknown Provider LAB BLOOD ORDERABLES Final R esult * (ABNORMAL) Hemoglobin A1c (05/28/2017 3:55 PM EDT) Hemoglobin A1C 7.6(H) <5.7 % of total Hgb 05/28/2017 10:49 PM EDT [email or web address] Comment: For someone without known diabetes, a [...] (MG/DL) 171 (calc) 05/28/2017 10:49 PM EDT [email or web address] eAG (MMOL/L) 9.5 (calc) 05/28/2017 10:[address] Blood specimen (specimen) Structure of peripheral vein / Unknown Venipuncture / Unknown 05/28/2017 3:55 PM EDT 05/28/2017 4:30 PM EDT Narrative [facility] - 05/28/2017 10:49 PM EDT [facility] Received Date:[id number] Jose Manuel Bell MD LAB BLOOD ORDERABLES Final Re sult [facility] [address] [facility] [address]rd Floor, [place] [address], [place] [phone] [employer] [facility] [address] [facility] [address]rd [address], [place] [address], [place] [phone] * DIABETES EYE EXAM (07/31/2016 9:16 AM EDT) Eye Exam [id number] [facility] MANUAL RESULTS 07/31/2016 9:16 AM EDT Benita Napier MD HEALTH MAINTENANCE Final Resul t Performing Organization Address City/[facility]/ZIP Co de Phone Number [facility] MANUAL RESULTS * MAMMOGRAPHY (05/15/2016 12:00 AM EDT) Mammogram Benign/ there are scattered areas of fibroglandular density . No significant change from prior study 2 OUTSIDE LABORATORY Anatomical Region Laterality Modality Other 05/15/2016 us Historical Conversion Provider HEALTH MAINTENANC E Final Result * Pap w/HPV (06/17/2014 10:55 AM EDT) Path Procedure TPGAS ([id number]) 1 ?? HPVHR([id number]) 1 ?? Edited by: [id number] - 1 [id number] ?? [id number] - 1324 -SCRPT6 [facility] Specimen Labeled As: 1 CERVICAL/ENDOCERVI MAKAYLA CYTO MATERIAL - Edited by: [id number] - 4304 HUGHER1 [facility] Additional Test Information Specimens were tested for high risk HPV using the FDA approved Digene Hybrid ?? Capture II kit, in the Diagnostic Molecular Oncology Lab at [facility] ?? Health Care. ??This test can [...] abnormality. ??We endorse the recommendations of the [place] Society for ?? Colposcopy and Cervical Pathology [...] complexity clinical laboratory testing. ?? Edited by: [id number] - 1324 BW-[id number] [facility] Diagnosis ThinPrep Pap Test ? Adequacy: Satisfactory for evaluation ? Interpretation: Negative for Intraepithelial Lesion or Malignancy ? Remarks/Recommenda tions: ?? This is the result of a morphological screening test with an inherent ?? possibility of a false negative interpretation. ?? This Pap test was examined in accordance with the [facility] Cytopathology ?? Laboratory written policy, which incorporates all CLIA mandates. Screening ?? guidelines can be found in Am J Clin Pathol 2012;137:516-542. ??We endorse the ?? practice guidelines developed by ASCCP and published in the Journal Lower ?? Genital Tract Disease 17(5):S1-S27 (2013). ? This Pap test was examined by the ThinPrep Imaging System, [employer], [place], [place]. ?- High risk HPV DNA subtypes: NEGATIVE ?? Edited by: [id number] - 1321 -SCRPT6 ?? [id number] FERRAROLaurie [facility] Gynecologic Clinical Data Specimen source:, THINPREP (CERVICAL AND ENDOCERVICAL) [facility] Gynecologic Clinical Data Gynecologic findings:, POST MENOPAUSAL [facility] Pathology Codes Client Order Code:, TPHGS3 [facility] Pathology Codes Bill Type:, 3RD DEMOCRAT BILLING [facility] Completed Report [id number] HPV, HIGH RISK TYPES 1 [facility] Marker 1 TOR GOMES [facility] Marker 2 MD SHLOMO NEGATIVE [facility] Marker 3 NILM,NILM [facility] Marker 4 RIM,RECEIVED IN MOLECULAR [facility] Marker 5 CRISTY GHOSH [facility] Cc Results To COMPA GODDARD K. METAL NUMERICAL CONTROL PROGRAMMER ??[id number] ?? JOHNNY SIU ??[id number] [facility] Signature REPORT SIGNED: TOR LAURA 06/29/14 [facility] Sign Out Audit TOR LAURA [id number] FINAL [place] [id number] [facility] Cytology / Unknown 5 10:55 AM EDT 06/20/2014 10:55 AM EDT us Juliet Napier MD LAB HISTORICAL RESULT S Final Result [facility] [address] [place] [address], * Hepatitis C Antibody w/Reflex to HCV RNA, Quantitative PCR (03/03/2014 2:31 PM EST) Hepatitis C Antibody NON-REACTI VE NON-REACT CRISTINA ENEIDA BOSTON Signal To Cut-Off 0.06 <1.00 ENEIDA BOSTON 03/03/2014 2:31 PM EST 03/03/2014 3:50 PM EST Jessi Garcia LAB BLOOD ORDERABLES Final Resul t ENEIDA MCGARRY from Last 3 Months or Most Recently Relevant to Health Maintenance Insurance [employer] Advance Directives Documents on File Type Date Recorded Patient Automatic Profile Sander Operator Expl anation Advance Directive 09/12/2014 12:00 AM sf Me dical Dec Making (Adv.Dir) Care Teams Manager Publishing Relationship Specialty Start Date End Date Barbara Victor [address] [place] [address] [place] [address] PCP - General Internal Medicine 06/24/17
--- OUTSIDE RECORDS SUMMARY | 2024-06-17 07:23 | XMS_ITS | Patient Health Record ---
[facility] Address [address] [place] [address] Care Team Providers Care Electroplater Apprentice Name Role Phone Barbara Victor Primary Care Provider Sergio Montelongo Unavailable [phone] Allergies Allergen (clinical drug ingredient) Drug/Non Drug [...] Duration) Notes Start Date End Date Status Terbinafine Not-Taki ng Ciclopirox Olamine 0.77 % 1 application to affected area Externally to feet Twice a day for 30 days Not-Taking Lisinopril 10 MG 1 tablet Orally Once a day for 30 day(s) Active Methotrexate Active metFORMIN HCl 500 MG 1 tablet [...] 1 tablet Orally Once a day Active Januvia Active Diclofenac-miSOPROStol 75-0.2 MG 1 tablet with food Orally Twice a day Active amLODIPine Besylate Active Leflunomide & Diclofenac Sod Not-Taking Xeljanz 5 MG 1 tablet Orally Twice a day for 30 day(s) Not-Taking Prednisone Temp last day 09/11/21 Not-Taking Methotrexate Sodium 10 MG as directed Orally once a week Not-Taking Glimepiride 2 MG 1 tablet with breakfast or the first main meal of the day Orally Once a day Active Zolpidem Tartrate 10 MG 1 tablet at bedtime as needed Orally Once a day PRN Active Vitamin D 1 tablet Orally Once a day Active Tradjenta 5 MG 1 tablet Orally Once a day Not-Taking Leflunomide Not-Taki ng Immunizations Vaccine Route Administration Date Status Comme nts COVID-19 Pfizer BioNTech Vaccine Unknown 11/09/2020 Administered 1st 01/30/2021 2nd 02/21/2020 Influenza Unknown 12/04/2021 Administered Social History Tobacco Use: Social History Observation Description Date Details (start date - stop date) Never Smoker NA - NA Tobacco use other than smoking: Question Answer Notes Are you an other tobacco user? No Tobacco Control (Standard) Question Answer Notes Tobacco use: Nonsmoker Additional Findings: Tobacco non-user Current no nsmoker AUDIT-C (Standard) Question Answer Notes Did you have a drink containing alcohol in the p ast year? No Points 0 Interpretation Negative Problems Problem Type SNOMED Code ICD Code Onset Dates Problem Status W/U Status Risk Notes Problem Acquired hammer toe of right foot (14594277730509 05) Other hammer toe(s) (acquired), right foot (M20.41) Active confirmed Problem Type 2 diabetes mellitus with peripheral angiopathy (848572452) Type 2 diabetes mellitus with diabetic peripheral angiopathy without gangrene (E11.51) Active confirmed Problem Acquired hammer toe of left foot (72114052913988 03) Other hammer toe(s) (acquired), left foot (M20.42) Active confirmed Vital Signs Blood pressure diastolic 65 mm Hg 06/11/2024 Height 5ft2.5in in 06/11/2024 Blood pressure systolic 128 mm Hg 06/11/2024 Weight 163 lbs 06/11/2024 BMI 29.33 kg/m2 06/11/2024 Procedures Procedure Date Ordered Date Performed Result Body Sit e 25981-BIVMLFT NAIL, 6 OR MORE 07/15/2023 N/A 13753-ZIUN SKIN LESIONS, OVER 4 07/15/2023 N/A 20623-EBIZZVO NAIL, 6 OR MORE 09/23/2023 N/A 91697-HYHY SKIN LESIONS, OVER 4 09/23/2023 N/A 06087-XTFOIYF NAIL, 6 OR MORE 11/25/2023 N/A 64555-PJIS SKIN LESIONS, OVER 4 11/25/2023 N/A 82174-BDDXDJO NAIL, 6 OR MORE 01/30/2024 N/A 70436-DWZK SKIN LESIONS, OVER 4 01/30/2024 N/A 25759-GHBBCLO NAIL, 6 OR MORE 04/02/2024 N/A 96289-UINN SKIN LESIONS, OVER 4 04/02/2024 N/A 57735-GMPJKPX NAIL, 6 OR MORE 06/11/2024 N/A 31393-EVVS SKIN LESIONS, OVER 4 06/11/2024 N/A Encounters Encounter Location Date Provider Diagnosis [address] [address] 07/15/2023 Sergio Malik Type 2 diabetes mellitus with diabetic peripheral angiopathy without gangrene E11.51 ; Tinea unguium B35.1 ; Pain in right toe(s) M79.674 and Pain in left toe(s) M79.[address] [address] 09/23/2023 Sergio Malik Type 2 diabetes mellitus with diabetic peripheral angiopathy without gangrene E11.51 ; Tinea unguium B35.1 ; Pain in right toe(s) M79.674 and Pain in left toe(s) M79.[address] [address] 11/25/2023 Sergio Helena Type 2 diabetes mellitus with diabetic peripheral angiopathy without gangrene E11.51 ; Tinea unguium B35.1 ; Pain in right toe(s) M79.674 and Pain in left toe(s) M79.[address] [address] 01/30/2024 Sergio [place] Type 2 diabetes mellitus with diabetic peripheral angiopathy without gangrene E11.51 ; Tinea unguium B35.1 ; Pain in right toe(s) M79.674 and Pain in left toe(s) M79.[address] [address] 04/02/2024 Sergio Malik Type 2 diabetes mellitus with diabetic peripheral angiopathy without gangrene E11.51 ; Tinea unguium B35.1 ; Pain in right toe(s) M79.674 ; Pain in left toe(s) M79.675 ; Other hammer toe(s) (acquired), right foot M20.41 and Other hammer toe(s) (acquired), left foot M20.[address] [address] 06/11/2024 Sergio Malik Type 2 diabetes mellitus with diabetic peripheral angiopathy without gangrene E11.51 ; Tinea unguium B35.1 ; Pain in right toe(s) M79.674 and Pain in left toe(s) M79.[address] [address] 11/25/2023 Sergio Malik Assessments Encounter Date Diagnosis [...] E11.51) 04/02/2024 Tinea unguium (ICD-10 - B35.1) 06/11/2024 Type 2 diabetes mellitus with diabetic peripheral angiopathy without gangrene (ICD-10 - E11.51) 06/11/2024 Tinea unguium (ICD-10 - B35.1) 04/02/2024 Pain in right toe(s) (ICD-10 - M79.674) 06/11/2024 Pain in right toe(s) (ICD-10 - M79.674) [...] Pain in left toe(s) (ICD-10 - M79.675) 06/11/2024 Pain in left toe(s) (ICD-10 - M79.675) [...] Treatment Pending Test Test Name Order Date 69350-EPKNWPF NAIL, 6 OR MORE 12/10/2019 98945-FFVDSYH NAIL, 6 OR MORE 02/29/2020 57497-QZEMTDQ NAIL, 6 OR MORE 05/30/2020 19638-EZWBATS NAIL, 6 OR MORE 08/29/2020 36190-LZJBCYR NAIL, 6 OR MORE 11/28/2020 25183-PMAJSFM NAIL, 6 OR MORE 03/06/2021 47443-ZSIXOEP NAIL, 6 OR MORE 06/08/2021 97581-UMSZGRH NAIL, 6 OR MORE 09/11/2021 91661-DFQLJSP NAIL, 6 OR MORE 12/11/2021 70412-MLXKZEB NAIL, 6 OR MORE 02/15/2022 77151-XDNXKGU NAIL, 6 OR MORE 05/28/2022 95463-CBSYLBK NAIL, 6 OR MORE 08/16/2022 55861-QDETDOA NAIL, 6 OR MORE 11/05/2022 12335-HLJXQIX NAIL, 6 OR MORE 01/07/2023 57335-TNPPPLN NAIL, 6 OR MORE 03/11/2023 09987-QKRQDEY NAIL, 6 OR MORE 05/13/2023 14138-NIXMKQR NAIL, 6 OR MORE 07/15/2023 18183-KPPBEUN NAIL, 6 OR MORE 09/23/2023 68762-ERFNYOM NAIL, 6 OR MORE 11/25/2023 90506-FMGNHSP NAIL, 6 OR MORE 01/30/2024 78582-ABHXHPD NAIL, 6 OR MORE 04/02/2024 89199-QVDFTAA NAIL, 6 OR MORE 06/11/2024 13149-ITCX SKIN LESIONS, OVER 4 06/12/19 80061-XFCS SKIN LESIONS, OVER 4 04/02/19 25 40473-PWIX SKIN LESIONS, OVER 4 01/30/20 24 59830-BXAS SKIN LESIONS, OVER 4 11/25/19 24 25498-UPAS SKIN LESIONS, OVER 4 09/23/19 24 09078-PNFW SKIN LESIONS, OVER 4 07/15/19 66494-RVCZ SKIN LESIONS, OVER 4 05/13/19 24 41050-APIP SKIN LESIONS, OVER 4 03/11/19 24 80745-MNKO SKIN LESIONS, OVER 4 01/08/20 23 49483-UCCH SKIN LESIONS, OVER 4 11/06/19 23 18711-JENG SKIN LESIONS, OVER 4 08/17/19 23 75660-CCRH SKIN LESIONS, OVER 4 05/29/19 00850-IGFE SKIN LESIONS, OVER 4 02/15/19 61043-VTBC SKIN LESIONS, OVER 4 12/12/19 55477-PPUC SKIN LESIONS, OVER 4 09/12/19 28082-ISLJ SKIN LESIONS, OVER 4 06/09/19 51559-DEVT SKIN LESIONS, OVER 4 03/06/19 42220-YJPC SKIN LESIONS, OVER 4 11/29/19 31495-KZLU SKIN LESIONS, OVER 4 08/30/19 61012-IEUQ SKIN LESIONS, OVER 4 05/31/19 83737-KBSZ SKIN LESIONS, OVER 4 02/28/19 82116-YOWG SKIN LESIONS, OVER 4 12/10/19 Next Appt Details Provider Name:Sergio Malik , 08/20/2024 08:45:00 AM, [address] [place] [address], [phone], Provider Name:Sergio Malik , 10/29/2024 08:45:00 AM, [address] [place] [address], [phone], Insurance Providers Payer Name Payer Address Payer Phone Subscriber Number Group Number Insured Name Patient Relationship to Insured Coverage Start Date Coverage End Date [employer] Benefits [address] [address] [place] [address] [id number] Joanna Tse Self - patient is the insured Medical (General) History Medical History History ICD Code Rheumatoid Arthritis Cancer - Thyroid High blood pressure Rheumatic fever Chicken pox Bone implants/screws CAD type II diabetes Surgical History Surgery Date(Month/Year) Thyroid Surgery 04/26,11/09/21 Broken wrist 05/25 bunion Surgery 2008 Right quad rupture repair 07/23/23 hysterectomy 06/09/2023
--- OUTSIDE RECORDS SUMMARY | 2024-06-17 07:23 | XMS_ITS | Clinical Summary ---
Author Organization [facility] Address [address] [place] [address] Care Team Providers Care Lead Project Engineer Name Role Phone ValenteBarbara Katelynn Primary Care Provider [phone] Allergies Active Allergy Reactions Criticality Noted Date [...] in February. 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 Problems Problem Noted Date Diagnosed Date Resolved Date Hyperkalemia 04/08/2019 02/08/2020 High risk medication use 12/31/2016 Primary hyperparathyroidism 11/29/2015 11/30/2016 Encounters Date Type Department Care Team Description 05/03/2024 Refill [facility] [address] [place] [address] Nut Former: Caridad Julian MD from Last 3 Months [...] complete this topic Procedures * Due to [place] [employer] law, this organization might not be sharing [...] to Health Maintenance Results * Due to [place] [employer] law, this organization might not be sharing negative HIV tests. * (ABNORMAL) Microalbumin/Creatinine Urine Ratio, Random (01/24/2020 9:14 AM EST) Microalbumin, Urine 5.0 mg/dL 01/24/2020 11:04 AM EST [facility] Creatinine, Urine 23 15 - 278 mg/dL 01/24/2020 11:04 AM EST [facility] Microalb/Creat Ratio, Random Urine 217.4(H) <30.0 mcg/mgCr 01/24/2020 11:04 AM EST [facility] Comment: Microalbumin Reference Range: Normal ? <30 mcg/mg Creatinine Microalbuminuria ? 30-300 mcg/mg Creatinine Clinical Albuminuria >300 mcg/mg Creatinine Reference: ADA Guideline. Diabetes Care. 2004;27 (suppl 1) Urine Voided urine specimen / Unknown Non-Blood Collection / Unknown 01/24/2020 9:14 AM EST 01/24/2020 10:30 AM EST us Meaghan Ziegler MD LAB URINE ORDERABLES Final Res ult [facility] [address] [place] [address], * (ABNORMAL) Basic Metabolic Panel, Outside Lab (08/30/2019) Potassium 4.9 Creatinine 1.45(H) mg/dL eGFR Non- 37(L) Blood Structure of peripheral vein / Unknown 08/30/2019 us Unknown Provider LAB BLOOD ORDERABLES Final R esult * (ABNORMAL) Hemoglobin A1c (05/28/2017 3:55 PM EDT) Hemoglobin A1C 7.6(H) <5.7 % of total Hgb 05/28/2017 10:49 PM EDT [facility] Comment: For someone without known diabetes, a [...] (MG/DL) 171 (calc) 05/28/2017 10:49 PM EDT [facility] eAG (MMOL/L) 9.5 (calc) 05/28/2017 10:49 PM EDT [facility] Blood specimen (specimen) Structure of peripheral vein / Unknown Venipuncture / Unknown 05/28/2017 3:55 PM EDT 05/28/2017 4:30 PM EDT Narrative [facility] - 05/28/2017 10:49 PM EDT [facility] Received Date:[id number] Jose Manuel Bell MD LAB BLOOD ORDERABLES Final Re sult Performing Organization Address City/[facility]/ZIP Co de Phone Number [address], [place] [address], [place] [address], [place] [address], * DIABETES EYE EXAM (07/31/2016 9:16 AM EDT) Eye Exam [id number] [facility] MANUAL RESULTS 07/31/2016 9:16 AM EDT Benita Napier MD HEALTH MAINTENANCE Final Resul t Performing Organization Address City/[facility]/ZIP Co de Phone Number [facility] MANUAL RESULTS * MAMMOGRAPHY (05/15/2016 12:00 AM EDT) Mammogram Benign/ there are scattered areas of fibroglandular density . No significant change from prior study 2 OUTSIDE LABORATORY Anatomical Region Laterality Modality Other 05/15/2016 us Historical Conversion Provider HEALTH MAINTENANC E Final Result * Pap w/HPV (06/17/2014 10:55 AM EDT) Path Procedure TPGAS (115096) 1 ?? HPVHR([id number]) 1 ?? Edited by: [id number] JOI ?? [id number] [facility] - [facility] Specimen Labeled As: 1 CERVICAL/ENDOCERVI MAKAYLA CYTO MATERIAL - Edited by: [id number] VALENTE [facility] PATH[facility] - [facility] Additional Test Information Specimens were tested for high risk HPV using the FDA approved Digene Hybrid ?? Capture II kit, in the Diagnostic Molecular Oncology Lab at [facility] ?? Health Care. ??This test [...] abnormality. ??We endorse the recommendations of the [place] Society for ?? Colposcopy and Cervical Pathology [...] laboratory testing. ?? Edited by: [id number] BW-[id number] [facility] PATHOLOGY - [facility] Diagnosis ThinPrep Pap Test ? Adequacy: Satisfactory for evaluation ? Interpretation: Negative for Intraepithelial Lesion or Malignancy ? Remarks/Recommenda tions: ?? This is the result of a morphological screening test with an inherent ?? possibility of a false negative interpretation. ?? This Pap test was examined in accordance with the [facility] Cytopathology ?? Laboratory written policy, which incorporates all CLIA mandates. Screening ?? guidelines can be found in Am J Clin Pathol 2012;137:516-542. ??We endorse the ?? practice guidelines developed by ASCCP and published in the Journal Lower ?? Genital Tract Disease 17(5):S1-S27 (2013). ? This Pap test was examined by the ThinPrep Imaging System, [employer], [place], [place]. ?- High risk HPV DNA subtypes: NEGATIVE ?? Edited by: [id number] - 2817 -SCRPT6 ?? [id number] - 12[address] [place] [facility] AN[facility]IC PATHOLOGY - [facility] Gynecologic Clinical Data Specimen source:, THINPREP (CERVICAL AND ENDOCERVICAL) [facility] PATHOLOG[facility] - [facility] Gynecologic Clinical Data Gynecologic findings:, POST MENOPAUSAL [facility] - [facility] Pathology Codes Client Order Code:, TPHGS3 [facility] - [facility] Pathology Codes Bill Type:, 3RD LIBERTARIAN BILLING [facility] PATH[facility] - [facility] Completed Report [id number] HPV, HIGH RISK TYPES 1 [facility] PATH[facility] - [facility] Marker 1 TOR GOMES [facility] ANATOMIC PATHOLOGY - [facility] Marker 2 MD SHLOMO NEGATIVE [facility] ANATOMIC PATHOLOGY - [facility] Marker 3 NILM,NILM [facility] AN[facility] PATHOLOG[facility] - [facility] Marker 4 RIM,RECEIVED IN MOLECULAR [facility] PATHOLOGY - [facility] Marker 5 CRISTY GHOSH [facility] - [facility] Cc Results To COMPA Bishop PIN FEATHER MACHINE OPERATOR ??[phone] ?? JOHNNY SUI ??[id number] [facility] PATHOLOG[facility] - [facility] Signature REPORT SIGNED: TOR LAURA 06/29/14 [facility] - [facility] Sign Out Audit TOR LAURA [id number] FINAL [place] [id number] [facility] - [facility] Cytology / Unknown 5 10:55 AM EDT 06/20/2014 10:55 AM EDT us Juliet Napier MD LAB HISTORICAL RESULT S Final Result [facility] - [facility] [address] [place] [address], * Hepatitis C Antibody w/Reflex to HCV RNA, Quantitative PCR (03/03/2014 2:31 PM EST) Hepatitis C Antibody NON-REACTI VE NON-REACT CRISTINA [facility] Signal To Cut-Off 0.06 <1.00 [facility] 03/03/2014 2:31 PM EST 03/03/2014 3:50 PM EST Jessi Garcia LAB BLOOD ORDERABLES Final Resul t ENEIDA MCGARRY from Last 3 Months or Most Recently Relevant to Health Maintenance Insurance [employer] Advance Directives Documents on File Type Date Recorded Patient Motor Runner Expl anation Advance Directive 09/12/2014 12:00 AM Me vora Dec Making (Adv.Dir) Care Teams Lead Project Engineer Relationship Specialty Start Date End Date Barbara Victor [address] [place] [address] [place] [address] PCP - General Internal Medicine 06/24/17
--- OUTSIDE RECORDS SUMMARY | 2024-06-17 07:23 | XMS_ITS | Encounter Summary ---
Author Organization [facility] Address [address] [place] [address] Care Team Providers Care Disability Insurance Claim Examiner Name Role Phone Barbara Victor Primary Care Provider [phone] Encounter Details Date Type Department Care Team (Late st Contact Info) Description 07/02/2016 Orders Only [facility] [address] [address] 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 MD [address] [place] [address] Social History Tobacco Use Types Packs/Day Years [...] on filedocumented in this encounter Care Teams Disability Insurance Claim Examiner Relationship Specialty Start Date End Date Barbara Victor [address] [place] [address] [place] [address] PCP - General Internal Medicine 06/24/17 documented as of this encounter
--- OUTSIDE RECORDS SUMMARY | 2024-06-17 07:23 | XMS_ITS ---
Author Organization [facility] Nery mullen Stephen Address [address] [place] [address] Care Team Providers Care Fisheries Technician Name Role Phone Barbara Victor Primary Care Provider Sergio Montelongo Unavailable [phone] Allergies Allergen (clinical drug ingredient) Drug/Non Drug [...] Problem Acquired hammer toe of right foot (9375461806151 105) Other hammer toe(s) (acquired), right foot (M20.41) Active confirmed Problem Acquired hammer toe of left foot (6987801987749 103) Other hammer toe(s) (acquired), left foot (M20.42) Active confirmed Vital Signs Height 5ft2.5in in 04/02/2024 Weight 163 lbs 04/02/2024 BMI 29.33 kg/m2 04/02/2024 Blood pressure systolic 120 mm Hg 04/02/19 25 Blood pressure diastolic 70 mm Hg 025 Procedures Procedure Date Ordered Date Performed Result Body Sit e 24712-YSWWTKJ NAIL, 6 OR MORE 04/02/2024 N/A 44179-YJHV SKIN LESIONS, OVER 4 04/02/2024 N/A Encounters Encounter Location Date Provider Diagnosis [facility] [place] [address] [place] [address] 04/02/2024 Sergio Malik Type 2 diabetes mellitus [...] INSTRUCTIONS.pdf) Pending Test Test Name Order Date 63441-SEKZICE NAIL, 6 OR MORE 04/02/2024 79497-MZVW SKIN LESIONS, OVER 4 04/02/19 25 Next Appt Details Follow Up: prn, Reason: Provider Name:Sergio Malik , 08/20/2024 08:45:00 AM, [address] [place] [address], [phone], Provider Name:Sergio Malik , 10/29/2024 08:45:00 AM, [address] [place] [address], [phone], Procedure Notes * Category Sub-Category Detail Notes [...] use of a nail nipper and/or dremel-type internal grinder, to a more viable healthy nail [...] to maintain effectiveness in symptomatic relief - 58148 Keratoma Treatment Parring or Cutting o f [...] instrumentation by the physician of record - 31068, Q8 Progress Notes * Joanna TSE MDOB:1960 (63 yo F)Acc No.[id number]:04/02/2024 Progress Note Patient:?Joanna TSE Provider:?Sergio Malik DPM :1960???Age:63 Y???Sex:Female D ate:04/02/2024 Address:[address] [place], [place] [address] Pcp:Barbara Victor Subjective: * Chief Complaints: * [...] ?Exercise: yes, walking. ?Marital status: . ?Occupation: [employer]. * Medications:?TakingJanuvia J ardiance 25 MG Tablet [...] Worse (4)??? Plan: * Treatment: 2.?Tinea unguium?Procedure: 53515-GYZIOBK NAIL, 6 OR MORE 3.?Other hammer toe(s) [...] use of a nail nipper and/or dremel-type internal grinder, to a more viable healthy nail [...] to maintain effectiveness in symptomatic relief - 63435.?Keratoma Treatment:?Parring or Cutting of Benign Hyperkeratotic Lesion(s)?(-57) [...] instrumentation by the physician of record - 88622, Q8.? * Procedure Codes:?98667 DEBRI DE NAIL, 6 OR MORE, Modifiers: XS 73533 TRIM SKIN LESIONS, OVER 4, Modifiers: XS [...] Malik DPM Date:?2024 Generated for Joao patterson/Erin/Laxmi on:?06/17/2024 07:23 AM EDT History and Physical Notes * [...]
--- OUTSIDE RECORDS SUMMARY | 2024-06-17 07:23 | XMS_ITS | Continuity of Care Document ---
Author Organization [facility] [place] Address [address] [place] [address]- Care Team Providers Care Picker / Packer Name Role Phone Barbara Victor MD Primary Care Physician Encounter [facility] Date(s): 05/13/24 - 06/12/24 [facility] [place] [address] [place], [place] [address] Attending Physician: Gavino Serrano Admitting Physician: Gavino Serrano Referring Physician: Gavino Serrano Encounter Type: Triage Allergies, Adverse Reactions, Alerts Substance Criticality Severity Reaction Reaction Severity Status ciprofloxacin rash Active Pollen Active Medications diclofenac sodium 75 mg oral delayed release tablet 0 Refills, Maintenance, 10/06/23 3:25:00 PM EDT, Partial fill upon patient request if the prescription is for a schedule II opioid drug. Start Date: 10/06/23 Status: Ordered Repeat number: 1 diclofenac-misoprostol 75 mg-200 mcg oral tablet 1 tablet, By Mouth, 2 times a day, 0 Refills, Maintenance, 05/09/14 3:41:28 PM EDT Start Date: 05/09/14 Status: Ordered Repeat number: 1 folic acid 1 mg oral tablet 1 mg, 1, tablet, By Mouth, Daily, Refills 0, Maintenance, 07/12/21 10:14:00 AM EDT, Partial fill uponpatient request if the prescription is for a schedule II opioid drug. Start Date: 07/12/21 Status: Ordered Repeat number: 1 glimepiride 2 mg oral tablet 1 tablet = 2 mg, By Mouth, Daily in AM, # 90 tablet, 0 Refills, Maintenance, 07/12/21 10:11:00 AM EDT, Tablet, Partial fill upon patient request if the prescription is for a schedule II opioid drug. Start Date: 07/12/21 Status: Ordered Quantity: 90.0 Unit: tablet Repeat number: 1 ibuprofen 800 mg oral tablet 800 mg, 1, tablet, By Mouth, Every 8 hours, # 30 tablet, Refills 0, Tot. Refills 0, Maintenance, 06/09/23 9:29:00 AM EDT, Route to Pharmacy Electronically, [facility], Partial fill upon patient request if the prescription is for a schedule II opioid drug., 158.5, cm, 06/09/23 7:20:00 EDT, Height, 73.2, kg, 06/09/23 7:20:00 EDT, Dry Weight Start Date: 06/09/23 Status: Ordered Quantity: 30.0 Unit: tablet Repeat number: 1 Januvia = 50 mg, By Mouth, Daily in AM, 0 Refills, Maintenance, 01/16/23 10:02:00 AM EST, Partial fill upon patient request if the prescription is for a schedule II opioid drug. Start Date: 01/16/23 Status: Ordered Repeat number: 1 Jardiance = 10 mg, By Mouth, Daily in AM, 0 Refills, Maintenance, 01/16/23 10:02:00 AM EST, Partial fill upon patient request if the prescription is for a schedule II opioid drug. Start Date: 01/16/23 Status: Ordered Repeat number: 1 Lisinopril = 10 mg, By Mouth, Daily in AM, 0 Refills, Maintenance, 07/17/12 5:26:08 PM EDT Start Date: 07/17/12 Status: Ordered Repeat number: 1 Metformin = 500 mg, By Mouth, 2 times a day, 0 Refills, Maintenance, 05/06/14 5:46:23 AM EDT Start Date: 05/06/14 Status: Ordered Repeat number: 1 Misoprostol = 200 mcg, By Mouth, 2 times a day, 0 Refills, Maintenance, 06/04/23 3:57:00 PM EDT, Partial fill upon patient request if the prescription is for a schedule II opioid drug. Start Date: 06/04/23 Status: Ordered Repeat number: 1 Nasacort PRN Other, 0 Refills, Maintenance, 06/04/23 3:58:00 PM EDT, Partial fill upon patient request if theprescription is for a schedule II opioid drug. Start Date: 06/04/23 Status: Ordered Repeat number: 1 Onglyza 5 mg oral tablet 1 tablet = 5 mg, By Mouth, Daily, 0 Refills, Maintenance, 07/12/21 10:13:00 AM EDT, Partial fill uponpatient request if the prescription is for a schedule II opioid drug. Start Date: 07/12/21 Status: Ordered Repeat number: 1 Refresh 3-4 drops, Eyes, Both, 2-3 times a day, 0 Refills, Maintenance, 06/04/23 4:02:00 PM EDT, Partial fill upon patient request if the prescription is for a schedule II opioid drug. Start Date: 06/04/23 Status: Ordered Repeat number: 1 Restasis one drop, Eyes, Both, 2 times a day, 0 Refills, Maintenance, 06/04/23 4:05:00 PM EDT, Partial fill upon patient request if the prescription is for a schedule II opioid drug. Start Date: 06/04/23 Status: Ordered Repeat number: 1 simvastatin 10 mg oral tablet 10 mg, 1, tablet, By Mouth, Daily at bedtime, Refills 0, Maintenance, 07/12/21 10:13:00 AM EDT, Partial fill upon patient request if the prescription is for a schedule II opioid drug. Start Date: 07/12/21 Status: Ordered Repeat number: 1 Synthroid 112 mcg, By Mouth, Daily, Refills 0, Maintenance, 07/12/21 10:13:00 AM EDT, Partial fill upon patientrequest if the prescription is for a schedule II opioid drug. Start Date: 07/12/21 Status: Ordered Repeat number: 1 Vitamin D3 50,000 intl units oral capsule 1 capsule = 1,250 mcg, By Mouth, Daily, 0 Refills, Maintenance, 07/12/21 10:12:00 AM EDT, Partial fill upon patient request if the prescription is for a schedule II opioid drug. Start Date: 07/12/21 Status: Ordered Repeat number: 1 zolpidem 10 mg oral tablet 0.5 tablet = 5 mg, By Mouth, Daily at bedtime, 0 Refills, Maintenance, 07/12/21 10:14:00 AM EDT, Partial fill upon patient request if the prescription is for a schedule II opioid drug. Start Date: 07/12/21 Status: Ordered Repeat number: 1 Problem List Condition Confirmation Course Effective Dates Status H ealth Status Informant Traumatic closed displaced fracture of distal end of left radius Confirmed Active Endometrial hyperplasia Confirmed Active Follow-up examination after gynecological surgery Confirmed Active Social History Social History Type Response Smoking Status Never smoker; Tobacc o user in household: No entered on: 05/06/14 Sex Sex Representation Female (finding) Laboratory * Event Display: Non Lab Results Authored Date: Radiology * Event Display: Ultrasound Neck, Non- Authored Date: Patient Care team information Care Team Personnel Name: Zamzam Ivey RN Position: Thalia RN Member Role: Primary Care Nurse Name: Barbara Victor MD Position: Reference Physician Member Role: PCP Address: [address] [place] [address] Telecom: Care Team Related Persons Name: LORENA ALARCON Insurance Providers Guarantor name: JAVED HOOPESTON Health Plan Information #: 1 Payer: [employer] PPO Member Number: NA Policy Number: NA Group Number: NA
--- OUTSIDE RECORDS SUMMARY | 2024-06-17 07:23 | XMS_ITS | Encounter Summary ---
Author Organization [facility] Address [address] [place] [address] Care Team Providers Care Transit Worker Name Role Phone Barbara Victor Primary Care Provider [phone] Encounter Details Date Type Department Care Team (Late st Contact Info) Description 03/25/2016 Orders Only [facility] [address] [address] 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 MD [address] [place] [phone] Social History Tobacco Use Types Packs/Day Years [...] on filedocumented in this encounter Care Teams Transit Worker Relationship Specialty Start Date End Date Barbara Victor [address] [place] [address] [place] [address] PCP - General Internal Medicine 06/24/17 documented as of this encounter
--- OUTSIDE RECORDS SUMMARY | 2024-06-17 07:23 | XMS_ITS | Encounter Summary ---
Author Organization [facility] Address [address] [place] [address] Care Team Providers Care Economic Development Coordinator Name Role Phone Barbara Victor Primary Care Provider [phone] Encounter Details Date Type Department Care Team (Late st Contact Info) Description 09/24/2016 Orders Only [facility] [address] [address] 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 MD [address] [place] [phone] Social History Tobacco Use Types Packs/Day Years [...] on filedocumented in this encounter Care Teams Economic Development Coordinator Relationship Specialty Start Date End Date Barbara Victor [address] [place] [address] [place] [address] PCP - General Internal Medicine 06/24/17 documented as of this encounter
--- OUTSIDE RECORDS SUMMARY | 2024-06-17 07:23 | XMS_ITS | Clinical Summary ---
Author Organization [facility] Address [address] [id number] Care Team Providers Care Lapping Machine Operator Name Role Phone Anderson Sanchez Primary Care Provider [phone] Allergies No known active allergies Medications Diclofenac-Mis [...] ( - 2023-2 5 season) 2023 Influenza (Season Ended) 2024 RSV (1 - 1-dose 75+ series) 08/13/2034 [...] complete this topic Zoster (Zostavax) Discontinued Insurance [facility] FEE FOR SERVICE PPO * Guarantor: JAVED TSE Account Type Relation to Patient Date of Phone Billing Address [employer] [address] [place] [address] [employer]YEMED ACCESS Care Teams Lapping Machine Operator Relationship Specialty Start Date End Date Anderson Sanchez [address] [address] PCP - General Rheumatology 06/10/12
--- OUTSIDE RECORDS SUMMARY | 2024-06-17 07:23 | XMS_ITS | Continuity of Care Document ---
Author Organization [facility] [place] Address [address] [place] [address]- Care Team Providers Care Reordering Clerk Name Role Phone Barbara Victor MD Primary Care Physician Encounter [facility] Date(s): 01/09/24 - 06/12/24 [facility] [place] [address] [place] [address]- Attending Physician: Kina Miranda MD Encounter Type: Pre-OutPatient One Time Allergies, Adverse Reactions, Alerts Substance Criticality Severity [...] 9:29:00 AM EDT, Route to Pharmacy Electronically, [facility], Partial fill upon patient request if [...] on: 05/06/14 Sex Sex Representation Female (finding) Patient Care team information Care Team Personnel Name: Zamzam Ivey RN Position: Thalia RN Member Role: Primary Care Nurse Name: Barbara Victor MD Position: Reference Physician Member Role: PCP Address: [address] [place] [address] Telecom: Care Team Related Persons Name: LORENA ALARCON Insurance Providers Guarantor name: JAVED TRISTANIAN Health Plan Information #: 1 Payer: [employer] P[employer] Member Number: [id number] Policy Number: NA Group Number: [id number] Health Plan Information #: 2 Payer: [employer] PPO Member Number: [id number] Policy Number: NA Group Number: NA
--- OUTSIDE RECORDS SUMMARY | 2024-06-17 07:24 | XMS_ITS ---
Author Organization [facility] Nery mullen [place] Address [address] [place] [address] Care Team Providers Care Register Repairer Name Role Phone Barbara Victor Primary Care Provider Sergio Montelongo Unavailable [phone] Allergies Allergen (clinical drug ingredient) Drug/Non Drug [...] Once a day for 30 day(s) Active Prednisone Temp last day 09/11/21 Not-Taking Methotrexate Sodium 10 MG as directed Orally once a week Not-Taking Leflunomide & Diclofenac Sod Not-Taking Xeljanz 5 MG 1 tablet Orally Twice a day for 30 day(s) Not-Taking Zolpidem Tartrate 10 MG 1 tablet at bedtime as needed Orally Once a day PRN Active Tradjenta 5 MG 1 tablet Orally Once a day Not-Taking Leflunomide Not-Taki ng metFORMIN HCl 500 MG 1 tablet with [...] Once a day for 30 day(s) Active Vitamin D 1 tablet Orally Once a day Active Jardiance 25 MG 1 tablet Orally Once a day Active Januvia Active Diclofenac-miSOPROStol 75-0.2 MG 1 tablet with food Orally Twice a day Active amLODIPine Besylate Active Methotrexate Active Glimepiride 2 MG 1 tablet with breakfast or the first main meal of the day Orally Once a day Active Social History Tobacco Use: Social History [...] ast year? No Points 0 Interpretation Negative Vital Signs Height 5ft2.5in in 06/11/2024 Weight 163 lbs 06/11/2024 BMI 29.33 kg/m2 06/11/2024 Blood pressure systolic 128 mm Hg 06/12/19 25 Blood pressure diastolic 65 mm Hg 025 Procedures Procedure Date Ordered Date Performed Result Body Sit e 02967-XWIXDEO NAIL, 6 OR MORE 06/11/2024 N/A 39395-TINM SKIN LESIONS, OVER 4 06/11/2024 N/A Encounters Encounter Location Date Provider Diagnosis [facility] [place] [address] [place] [address] 06/11/2024 Sergio Malik Type 2 diabetes mellitus with diabetic peripheral angiopathy without gangrene E11.51 ; Tinea unguium B35.1 ; Pain in right toe(s) M79.674 and Pain in left toe(s) M79.675 Assessments Encounter Date Diagnosis (ICD Code) Assessment Notes Treatment Notes Treatment Clinical Notes Section Notes 06/11/2024 Type 2 diabetes mellitus with diabetic peripheral angiopathy without gangrene (ICD-10 - E11.51) 06/11/2024 Tinea unguium (ICD-10 - B35.1) 06/11/2024 Pain in right toe(s) (ICD-10 - M79.674) 06/11/2024 Pain in left toe(s) (ICD-10 - M79.675) Plan Of Treatment Pending Test Test Name Order Date 20416-UMYPMHF NAIL, 6 OR MORE 06/11/2024 52621-MIKP SKIN LESIONS, OVER 4 06/12/19 25 Next Appt Details Follow Up: prn, Reason: Provider Name:Sergio Malik , 08/20/2024 08:45:00 AM, [address] [place] [address], [phone], Provider Name:Sergio Malik , 10/29/2024 08:45:00 AM, [address] [place] [address], [phone], Procedure Notes * Category Sub-Category Detail Notes [...] use of a nail nipper and/or dremel-type tool grinder operator, to a more viable healthy [...] to maintain effectiveness in symptomatic relief - 12645 Keratoma Treatment Parring or Cutting o f [...] instrumentation by the physician of record - 60317, Q8 Progress Notes * Joanna TSE MDOB:1960 (63 yo F)Acc No.[id number]:06/11/2024 Progress Note Patient:?Joanna TSE Provider:?Sergio Malik DPM :1960???Age:63 Y???Sex:Female D ate:06/11/2024 Address:[address] [place], [place] [id number] Pcp:Barbara Victor Subjective: * Chief Complaints: * ???At Risk FootcarePainful N ail(s) aggrevated by shoes and causing difficulty standing/walking * HPI: ???At Risk footcare:?Pt States Last PCP Visit:?Date?03/19/2024 ?Misc?States going on [employer] later this month.? * ROS:?General/Constitutional:?Nausea?denies.?Vomiting?denies.?Hunger Thirst?denies.?Loss appetite?denies.?Chills?denies.?Fatigue?denies.?Fever?denies.?Night Sweats?denies.?Unexplained weight loss?denies.?Unexplained [...] history of arthritis.? * Social History:?Tobacco Use:?Tobacco use other than smoking?Are you an other tobacco user??No ?Tobacco Control (Standard)?Tobacco use:?Nonsmoker ?Additional Findings: Tobacco non-user?Current nonsmoker ???Drugs/Alcohol:?Drugs?Have you used drugs other than those for medical reasons in the past 12 months??No ???Miscellaneous:?Caffeine: yes, 1 cups per day. ?Children: yes, 2. ?Exercise: yes, walking. ?Marital status: . ?Occupation: [employer]. ???Drug/Alcohol:?AUDIT-C (Standard)?Did you have a drink containing alcohol in the past year??No ?Points?0 ?Interpretation?Negative * Medications:?TakingGlimepiri de 2 MG Tablet 1 tablet with breakfast or the first main meal of the day Orally Once a day Methotrexate Januvia Jardiance 25 MG Tablet 1 tablet Orally [...] Once a day , Notes to Pharmacist: PRNLisinopril 10 MG Tablet 1 tablet Orally Once a day Taking Glimepiride 2 MG Tablet 1 tablet with breakfast or the first main meal of the day Orally Once a day Taking Methotrexate Taking Januvia Taking Jardiance 25 MG Tablet 1 tablet [...] a day , Notes to Pharmacist: PRNTaking Lisinopril 10 MG Tablet 1 tablet Orally Once a day Not-Taking/PRNLeflunomide Tradjenta 5 MG Tablet 1 tablet Orally Once a day Xeljanz 5 MG Tablet 1 tablet Orally Twice a day Leflunomide & Diclofenac Sod Methotrexate Sodium 10 MG Tablet as directed Orally once a week Prednisone , Notes to Pharmacist: Temp last day 09/11/21Ciclopirox Olamine 0.77 % Cream 1 application to affected area Externally to feet Twice a day Terbinafine Medication List reviewed and reconciled with the [...] to feet Twice a day Not-Taking/PRN Terbinafine Medication List reviewed and reconciled with the patient * Allergies:?Cipro: rashLevaqu in: rashyes[Allergies Verified] Objective: * Vitals:?Ht:5ft2.5in, Wt:163, BMI:29.33, Shoe size:6.5, BP:128/65mm Hg, BS:165, Ht-cm: 158.75 cm, Wt-k.94 kg. * ???Past Orders: ???Lab:HEMOGLOBIN A1C (GLYCO HEMOGLOBIN) (Order Date - 04/02/2024) (Collection Date & Time - 04/02/2024 08:46 AM) ? Value Reference Range ?HEMOGLOBIN A1C % (HH) 7.2 * Examination: ???Ophthalmology Referral: ?DIABETES EYE EXAM?Procedure Performed:?Yes ?Date of Exam Performed?01/16/2024 ?Diabetic Retinopathy Screening:?Yes ?Retinal Screening Performed:?Yes ?Findings of Diabetic Eye Exam:?no retinopathy?Vascular: ?DP [...] MTH (s), 2, B/L , Plantar, Heel(s), B/L.? Assessment: * Assessment: 1.?Type 2 diabetes mellitus with diabetic peripheral angiopathy without gangrene - E11.51 (Primary)???Specify :Q8???2.?Tinea unguium - B35.1???3.?Pain in right toe(s) - M79.674???4.?Pain in left toe(s) - M79.675??? Plan: * Treatment: 2.?Tinea unguium?Procedure: 03894-EUCLQME NAIL, 6 OR MORE * Procedures:?Debride Nail [...] use of a nail nipper and/or dremel-type tool grinder operator, to a more viable healthy [...] to maintain effectiveness in symptomatic relief - 72926.?Keratoma Treatment:?Parring or Cutting of Benign Hyperkeratotic Lesion(s)?(-57) [...] instrumentation by the physician of record - 67479, Q8.? * Procedure Codes:?34434 DEBRI DE NAIL, 6 OR MORE, Modifiers: XS 45602 TRIM SKIN LESIONS, OVER 4, Modifiers: XS , Q8 * Follow Up:?prn * Images: * Sign off status: Completed true * Provider:?Sergio Malik DPM Date:?2024 Generated for Joao patterson/Erin/Laxmi on:?06/17/2024 07:23 AM EDT History and Physical Notes * HPI (History of Present Illness) Category Sub-Category Detail Notes Category Not es At Risk footcare Pt States Last PCP Visit: Date: 5 [facility] going on [employer] later this month Examination Category Sub-Category Detail Notes Category Not es Dermatologic SKIN FINDINGS: Skin exam reveal s Keratotic lesion(s) located at, SUB MTH (s), 1, B/L , SUB MTH (s), 2, B/L , Plantar, Heel(s), B/L Ophthalmology Referral DIABETES EYE EXAM Procedu re Performed:: Yes ?Date of Exam Performed: 01/16/2024 Diabetic Retinopathy Screening:: Yes Retinal Screening Performed:: Yes Findings of Diabetic Eye Exam:: no retin [...]
--- OUTSIDE RECORDS SUMMARY | 2024-06-17 07:24 | XMS_ITS ---
Author Organization [facility] Nrey mullen [place] Address [address] [place] [address] Care Team Providers Care Profile Trimmer Name Role Phone Barbara Victor Primary Care Provider Sergio Montelongo Unavailable [phone] Allergies Allergen (clinical drug ingredient) Drug/Non Drug [...] Ordered Date Performed Result Body Sit e 91994-LWTSCJS NAIL, 6 OR MORE 01/30/2024 N/A 99619-BDHX SKIN LESIONS, OVER 4 01/30/2024 N/A Encounters Encounter Location Date Provider Diagnosis [facility] [address] [address] 01/30/2024 Sergio Malik Type 2 diabetes mellitus [...] Treatment Pending Test Test Name Order Date 95243-WRACWWG NAIL, 6 OR MORE 01/30/2024 41058-RXXW SKIN LESIONS, OVER 4 01/30/20 24 Next Appt Details Follow Up: prn, Reason: Provider Name:Sergio Malik , 08/20/2024 08:45:00 AM, [address] [place] [address], [phone], Provider Name:Sergio Malik , 10/29/2024 08:45:00 AM, [address] [place] [address], [phone], Procedure Notes * Category Sub-Category Detail Notes [...] use of a nail nipper and/or dremel-type double end production grinder, to a more viable healthy nail [...] to maintain effectiveness in symptomatic relief - 97405 Keratoma Treatment Parring or Cutting o f [...] instrumentation by the physician of record - 76209, Q8 Progress Notes * Joanna TSE MDOB:1960 (63 yo F)Acc No.[id number]:01/30/2024 Progress Note Patient:?Joanna TSE Provider:?Sergio Malik DPM :1960???Age:63 Y???Sex:Female D ate:01/30/2024 Address:[address] [place], [place] [id number] Pcp:Barbara Victor Subjective: * Chief Complaints: * [...] walking. ?Marital status: . ?Occupation: [employer]. * Medications:?TakingLeflunomi de Jardiance 25 MG Tablet [...] - M79.675??? Plan: * Treatment: 2.?Tinea unguium?Procedure: 95000-GKWJZJZ NAIL, 6 OR MORE * Procedures:?Debride Nail [...] use of a nail nipper and/or dremel-type double end production grinder, to a more viable healthy nail [...] to maintain effectiveness in symptomatic relief - 01719.?Keratoma Treatment:?Parring or Cutting of Benign Hyperkeratotic Lesion(s)?(-57) [...] instrumentation by the physician of record - 82009, Q8.? * Procedure Codes:?90576 DEBRI DE NAIL, 6 OR MORE, Modifiers: XS 38646 TRIM SKIN LESIONS, OVER 4, Modifiers: XS , Q8 * Follow Up:?prn * Images: * Sign off status: Completed true * Provider:?Sergio Malik DPM Date:?2023 Generated for Joao patterson/Erin/Laxmi on:?06/17/2024 07:23 AM [...]
--- NOTE | 2024-06-17 07:29 | MHC.OFFVIS ---
Vital Signs 06/17/24 07:35 Height 5 ft 2.5 in Weight 165 lb BMI 29.7 BP 130/72 Blood Pressure Location Lt brachial Position Sitting Respiration 16 Pulse 69 Pulse Source Pulse Oximeter Pulse Oximetry (%) 98 Oxygen Delivery Method Room Air Intake Visit Reasons: Follow up Intake Note: Patient presents for RA follow up. Allergies ciprofloxacin [Cipro] Allergy (Intermediate, Verified 06/17/24 07:33) rash amlodipine Adverse Reaction (Intermediate, Verified 06/17/24 07:33) swelling Medication List - Last Reconciled 06/17/24 by Cecile Guzmán MD blood sugar diagnostic (Social IQ (Social Influence Quotient)uch Verio test strips) test once daily cholecalciferol (vitamin D3) 125 mcg PO .2x /week cyclosporine 0.05% (Restasis) 1 drp ophthalmic (eye) Q12H diclofenac sodium 37.5 mg (1/2 x 75 mg) PO BID empagliflozin (Jardiance) 25 mg PO DAILY folic acid 1 mg PO DAILY glimepiride 2 mg PO DAILY 90 days levothyroxine 112 mcg PO DAILY 90 days lisinopril 10 mg PO DAILY metformin 500 mg PO BID methotrexate sodium 10 mg (4 x 2.5 mg) PO QWEEK 90 days misoprostol 200 mcg PO BID simvastatin 10 mg PO BEDTIME sitagliptin phosphate (Januvia) 50 mg PO DAILY 90 days triamcinolone acetonide (Nasacort Allergy) 2 sprays intranasal DAILY zolpidem (Ambien) 10 mg PO BEDTIME PRN 90 days HPI Comments Details: Patient is a 63-year-old female with diabetes complicated by CKD stage 3B - 4, hypertension, hypothyroidism and hyperlipidemia presents for follow up management of seropositive erosive rheumatoid arthritis. Interval History: Patient last seen 03/18/2024 with me. At that time she was following up for her rheumatoid arthritis on leflunomide 20 mg. patient was having more joint pain when compared to methotrexate and so she was changed back to methotrexate. Since changing back to methotrexate has noticed improvement but continues to have hand and foot pain Rheumatologic History: Patient diagnosed with rheumatoid arthritis in her 20s and has been on: Methotrexate: currently maintained onn 4-5 pills per week due to LFTs derangements Infliximab: Stopped due to change in Physician Humira: Self discontinued due to burning at injection site Xeljanz: Discontined due to recurrent papillary thyroid cancer Plaquenil: Did not tolerate 12/2023. Noted on her C-spine that there was instability this was followed up with an MRI and then she was ultimately sent to a neurosurgeon who evaluated her. 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 Patient diagnosed with rheumatoid arthritis in her 20s and has been on: Methotrexate: currently maintained onn 4-5 pills per week due to LFTs derangements Infliximab: Stopped due to change in Physician Humira: Self discontinued due to burning at injection site Xeljanz: Discontined due to recurrent papillary thyroid cancer Plaquenil: Did not tolerate She is currently maintained on methotrexate 4-5 pills per week and takes diclofenac for breakthrough joint pain. She also has a secondary osteoarthritis on top of her rheumatoid arthritis. Currently she states that she is doing overall well does not have any prolonged morning stiffness but has frequent flares of her disease requiring her to take diclofenac. Last DEXA 2 years ago showed osteopenia Current Rheumatology Medication(s): Methotrexate 10mg weekly Folic acid 1 mg [facility] Medical History Abdominal wall hernia Anterolisthesis of cervical spine Methotrexate, mcfp, current use History of radioactive iodine thyroid ablation History of hyperparathyroidism Postoperative hypothyroidism Vitamin D deficiency Thyroid cancer Type 2 diabetes mellitus with hyperglycemia Hypothyroid Obesity (BMI 30-39.9) Parotitis History of thyroid cancer Rheumatoid arthritis Hypercholesterolemia Hypertension Insomnia Surgical History (Updated 06/17/24 @ 07:35 by DANDRE Davis) History of hernia repair H/O knee surgery History of hysterectomy History of hysteroscopy History of thyroid surgery History of parathyroid surgery H/O wrist surgery History of tonsillectomy History of section Family History Father CAD (coronary artery disease) Mother Dementia CAD (coronary artery disease) Sister Breast cancer Depression Social History Housing: House Are you a primary clinical manager home care to a significant other at home: No Do you presently have visiting nurse or other home services: No Alcohol intake: current Alcohol intake frequency: holidays/special occasions only Patient Tobacco Use Status: Never used Tobacco Tobacco use type: Cigarette e-Cigarette/Vaping Use: Never Used Second Hand Smoke Exposure: No service: No Current occupational status: employed Current occupational exposures/hazards: No Cognitive needs: No Hearing needs: No Vision needs: Yes Female Reproductive History Menstrual Age of Menarche: 12 Review of Systems Const Details: Review of Systems Constitutional: Denies fever, chills, weight loss ENT: Denies vision changes, eye pain or eye redness, dental caries, dry mouth GI: Denies nausea, vomiting, diarrhea, abdominal pain, change in BM Pulm: Denies SOB, WU, hemoptysis, wheezing Cards: Denies chest pain, palpitations Skin: Denies Raynaud's, rash, nail changes, photosensitivity, SAND BUFFER: Denies headaches, weakness, paresthesias, recurrent falls MSK: as per HPI All other systems reviewed and are unremarkable except noted above Physical Exam Vital Signs: Last Vital Signs Pulse 69 06/17/24 07:35 Resp 16 06/17/24 07:35 BP 130/72 06/17/24 07:35 Pulse Ox 98 06/17/24 07:35 Oxygen Delivery Method Room Air 06/17/24 07:35 BMI result Body Mass Index 29.7 Vital signs reviewed Physical Examination CONSTITUITIONAL Patient alert and cooperative. Well appearing and in no apparent painful distress HEENT Conjunctiva and sclera clear. ?Pupils equal round and reactive to light. ?No lymphadenopathy. ?Normal dentition. No oral or nasal ulcers noted. No evidence of discoid rash to the marianela of ears CHEST/RESPIRATORY SYSTEM Normal respiratory effort and able to speak in complete sentences. ?Clear to auscultation bilaterally. ?No crackles, rales, rhonchi, wheezes heard. CARDIAC SYSTEM Regular rate and rhythm. ?S1 and S2 heard no murmurs. ?Radial pulses intact bilaterally MSK Hands: ?Good manager camp strength bilaterally - 5/5. [place]-neck deformity noted to the left 5th digit but this was reducible. Ulnar deviation noted to bilateral hands at the MCP joints for this was also reducible. Synovitis noted to the MCPs 2nd to the 5th bilaterally. Wrists: ?Full range of motion at the wrists without pain. ?Tenderness to palpation of bilateral wrists right worse than left Elbows: Full range of motion without pain. No tenderness, weakness, swelling, increased warmth or erythema. Shoulders: Full range of motion without pain. Tenderness to palpation of bilateral AC joints Knees: ?Full range of motion. ?No tenderness, swelling, increased warmth or erythema.?No effusion or crepitations Ankles: Full range of motion. ?No tenderness, swelling, increased warmth or erythema.? Feet: positive squeeze test bilaterally with tenderness to palpation of the MTPs SKIN Skin intact without rashes. Results Reviewed Results Reviewed: Laboratory Tests 03/09/24 06/08/24 08:03 09:39 WBC 5.7 RBC 4.65 Hgb 14.1 Hct 43.2 Plt Count 226 D ESR 20 Sodium 138 Potassium 4.4 Chloride 108 Carbon Dioxide 22 BUN 26 H Creatinine 1.18 Estimated GFR 46 AST 18 ALT 24 Alkaline Phosphatase 96 C-Reactive Protein 0.66 H 1.62 H Infectious serologies 12/19/23 08:41 Hepatitis A IgM Ab Nonreactive Hep Bs Antigen Negative Hep Bs Antibody NONREACTIVE Hep B Core Total Ab Nonreactive Hepatitis C Ab (EIA) Nonreactive Assessment & Plan Assessment & Plan (1) Rheumatoid arthritis: Comment: Diagnosed in her 20s Methotrexate: currently maintained onn 4-5 pills per week due to LFTs derangements Infliximab: Stopped due to change in Physician Humira: Self discontinued due to burning at injection site Xeljanz: Discontinued due to recurrent papillary thyroid cancer Plaquenil: Did not tolerate Code(s): M06.9 - Rheumatoid arthritis, unspecified Category: Medical Qualifiers: Rheumatoid arthritis location: multiple sites Rheumatoid factor presence: with rheumatoid factor Qualified Code(s): M05.79 - Rheumatoid arthritis with rheumatoid factor of multiple sites without organ or systems involvement Plan: #Seropositive Erosive RA Patient is a 63 y.o. female with seropositive erosive rheumatoid arthritis. Repeat x-rays done 12/2023 showed that her erosions are stable and there has not been any progression. Despite being on methotrexate she continues to have moderate disease activity with tender and swollen joints on exam today. Discussed adding a biologic. Patient had good efficacy from Remicade in the past, but did not tolerate Humira injections due to injection site reactions. So we will try Simponi Aria infusions Creatinine clearance based on up-to-date calculator is Plan - Start Simponi Aria infusions 2mg/kg every 4 weeks for the 1st 2 doses and then every 8 weeks - Continue methotrexate 4 pills weekly - Folic acid 1 mg daily - RTC 4 months - Labs before visit: CBC, CMP, ESR, CRP, Hepatitis panel and T spot (2) Methotrexate, mcfp, current use: Code(s): Z79.631 - linoleum floor layer (current) use of antimetabolite agent Category: Medical Plan: #Long-term Current Use of Methotrexate Discussed with patient the benefits and risks of methotrexate for managing their rheumatic condition Benefits include reduced pain, reduced mortality, maintenance of remission and reduction of flares Risks include oral ulcers, photosensitivity, hepatotoxicity, hematologic toxicity, pneumonitis, flu-like symptoms (especially day after administration), nodulosis, lymphomas ? Limit alcohol and avoid Bactrim ? Monitoring: ?CBC, BMP, LFTs every 3-4 months and hepatitis serologies as needed (3) Encounter for monitoring golimumab therapy: Code(s): Z51.81 - Encounter for therapeutic drug level monitoring; Z79.620 - correction (current) use of immunosuppressive biologic Plan: #Long-term Use of TNF Inhibitors: Golimumab Discussed with the patient the benefits and risks of TNF inhibitors for the management of the rheumatic condition Benefits include reduce pain, maintenance of remission and reduction of flares as well as progression of the disease Risks include injection sites/infusion reactions, serious infections (such as bacterial infections, opportunistic infections), malignancy, delaminating syndromes, autoimmune phenomena, CHF exacerbations, palmar plantar psoriasis and cytopenias Recommended rotating injection sites, and holding medication during and for up to 1 week after resolution of a febrile illness or open skin wound Plan I spent 40 minutes reviewing the record and labs, taking a history, examining the patient, discussing the treatment plan, ordering simponi infusion and documenting in the medical record Orders: Orders Hepatitis A,B,C Profile 4 Months - Rheumatoid arthritis with rheumatoid factor of multiple sites without organ or systems involvement T Spot TB 4 Months . - Rheumatoid arthritis with rheumatoid factor of multiple sites without organ or systems involvement Complete Blood Count Auto Diff 4 Months - Rheumatoid arthritis with rheumatoid factor of multiple sites without organ or systems involvement Comprehensive Met. Panel 4 Months - Rheumatoid arthritis with rheumatoid factor of multiple sites without organ or systems involvement C Reactive Protein 4 Months - Rheumatoid arthritis with rheumatoid factor of multiple sites without organ or systems involvement Erythrocyte Sedimentation Rate 4 Months M05.79 - Rheumatoid arthritis with rheumatoid factor of multiple sites without organ or systems involvement Referrals Infusion Center Notification M05.79 - Rheumatoid arthritis with rheumatoid factor of multiple sites without organ or systems involvement Coding Level of Care Code Est Pt Level 5 (72197) Complex EM visit Add On G2211 Diagnoses Rheumatoid arthritis involving multiple sites with positive rheumatoid factor M05.79 Rheumatoid arthritis location: multiple sites Rheumatoid factor presence: with rheumatoid factor Methotrexate, building services coordinator, 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 Encounter for monitoring golimumab therapy Z51.81; Z79.620
[2024-06-17 07:35] VITALS: BP 130/72; PULSE 69; RESP 16; O2SAT 98; BMI 29.7
== END 2024-06-17 08:04 | disposition home or self-care (01) ==
LOC: HO.RHE 07:21
PROVIDERS: PCP Internal Medicine; Visit Provider Student in an Organized Health Care Education/Training Program
DX: M05.79 Rheumatoid arthritis with rheumatoid factor of multiple sites without organ or systems involvement (principal); Z79.631 Long term (current) use of antimetabolite agent; Z51.81 Encounter for therapeutic drug level monitoring; Z79.620 Long term (current) use of immunosuppressive biologic
CPT/HCPCS: 99215

== ENCOUNTER → 2024-06-17 07:21 | Outpatient (BNVA) | payer OTHER, SELFPAY | PROVIDERS: PCP Internal Medicine; Visit Provider Student in an Organized Health Care Education/Training Program | DX: M05.79 Rheumatoid arthritis with rheumatoid factor of multiple sites without organ or systems involvement (principal) ==

== ENCOUNTER 2024-07-14 11:53 | Outpatient (AMB) | payer OTHER, SELFPAY ==
--- NOTE | 2024-07-14 12:02 | HO.NEPHOV_ITS ---
Vital Signs 07/14/24 12:03 Height 5 ft 2.5 in BP 106/60 Blood Pressure Location Rt brachial Position Sitting Pulse 65 Pulse Source Pulse Oximeter Pulse Oximetry (%) 97 Oxygen Delivery Method Room Air Intake Visit Reasons: CKD Client Account Manager Required: No Accompanied by: Self / Same As Patient Allergies ciprofloxacin [Cipro] Allergy (Intermediate, Verified 07/14/24 12:03) rash amlodipine Adverse Reaction (Intermediate, Verified 07/14/24 12:03) swelling HPI Comments Details: Joanna was seen in follow up of care of for her CKD. She had seen a dead mail checker in [facility] where she follows up with her Slot Shift Supervisor for her Rheumatoid Arthritis. She has long standing history of diabetes mellitus and hypertension with no H/O significant proteinuria in addition to her other medical issues including hypothyroidism (postoperative from thyroid cancer), hypercholesterolemia, osteoarthritis as well as primary hyperparathyroidism status post parathyroidectomy.She has no hypoglycemic episodes. She has H/O renal stones. She regularly takes NSAID's for her joint issues while she is on ACEI. She is on MTX as well as Jardiance. She denied any CAD, CVA, VENTURA, PAD or CHF. She denies any hematuria but has H/O renal stones. She tries to keep herself hydrated. She has no nausea, vomiting, diarrhea, SOB, PND, orthopnea , p edal edema or new skin rashes. [facility] Medical History Abdominal wall hernia Anterolisthesis of cervical spine Methotrexate, extermination supervisor, current use History of radioactive iodine thyroid ablation History of hyperparathyroidism Postoperative hypothyroidism Vitamin D deficiency Thyroid cancer Type 2 diabetes mellitus with hyperglycemia Hypothyroid Obesity (BMI 30-39.9) Parotitis History of thyroid cancer Rheumatoid arthritis Hypercholesterolemia Hypertension Insomnia Surgical History History of hernia repair H/O knee surgery History of hysterectomy History of hysteroscopy History of thyroid surgery History of parathyroid surgery H/O wrist surgery History of tonsillectomy History of section Family History Father CAD (coronary artery disease) Mother Dementia CAD (coronary artery disease) Sister Breast cancer Depression Social History Housing: House Are you a primary attending ambulatory care to a significant other at home: No Do you presently have visiting nurse or other home services: No Alcohol intake: current Alcohol intake frequency: holidays/special occasions only Patient Tobacco Use Status: Never used Tobacco Tobacco use type: Cigarette e-Cigarette/Vaping Use: Never Used Second Hand Smoke Exposure: No service: No Current occupational status: employed Current occupational exposures/hazards: No Cognitive needs: No Hearing needs: No Vision needs: Yes Female Reproductive History Menstrual Age of Menarche: 12 Review of Systems Const All systems reviewed & are unremarkable except as noted in HPI and below Physical Exam Vital Signs: Last Vital Signs Pulse 65 07/14/24 12:03 BP 106/60 07/14/24 12:03 Pulse Ox 97 07/14/24 12:03 Oxygen Delivery Method Room Air 07/14/24 12:03 Const General: comfortable and no acute distress Orientation/consciousness: patient oriented x3 HEENT Head: Yes normocephalic Mouth: Normal oral and palatal mucosa present Eyes EOM: EOMs intact bilaterally Neck Neck: Yes supple Resp Auscultation: clear to auscultation bilaterally Cardio Jugular venous distension: no JVD Rate: regular rate GI Palpation (GI): Soft to palpation Auscultation: normal bowel sounds General: Yes no CVA tenderness Back/Spine/Pelvis Back: no CVA tenderness Skin General skin exam: no rashes or lesions noted Neuro General: patient oriented x3 and moves all extremities Extrem General: Yes no pedal edema Results Reviewed Nephrology Results: Hgb 14.1 g/dl (12.0-16.0) 06/08/24 WBC 5.7 X10*3/uL (4.8-10.8) 06/08/24 Plt Count 226 X10*3/uL (160-400) 06/08/24 Sodium 138 mmol/L (135-145) 06/08/24 Potassium 4.4 mmol/L (3.3-5.1) 06/08/24 Chloride 108 mmol/L (96-108) 06/08/24 Carbon Dioxide 22 mmol/L (22-29) 06/08/24 BUN 24 mg/dL (9-16) H 06/08/24 Creatinine 1.18 mg/dL (0.5-1.4) 06/08/24 Calcium 9.4 mg/dL (8.4-10.2) 06/08/24 Assessment & Plan Assessment & Plan (1) CKD (chronic kidney disease) stage 3, GFR 30-59 ml/min: Code(s): N18.30 - Chronic kidney disease, stage 3 unspecified Category: Medical Qualifiers: Chronic kidney disease stage 3 subtype: stage 3a (GFR 45-59) Qualified Code(s): N18.31 - Chronic kidney disease, stage 3a (2) Hypertension: Code(s): I10 - Essential (primary) hypertension Category: Medical Qualifiers: Hypertension type: essential hypertension Qualified Code(s): I10 - Essential (primary) hypertension Plan Joanna has CKD 3 likely from vascular disease on a backdrop of DM and HTN. She has RA and is on MTX as well as NSAID's. She takes ACEI as well as Jardiance. She has no H/O proteinuria. Her BP has been at goal. She needs to maintain good hydration. Imaging reviewed . She does not need a renal biopsy which I plan to continue to discuss further with her with time. I did not make any other medication changes today. Labs ordered for F/U Orders: Orders Protein Creatinine Ratio, Ur 6 Months N18.31 - Chronic kidney disease, stage 3a Calcium 6 Months N18.31 - Chronic kidney disease, stage 3a Creatinine 6 Months N18.31 - Chronic kidney disease, stage 3a Blood Urea Nitrogen 6 Months N18.31 - Chronic kidney disease, stage 3a Electrolytes 6 Months N18.31 - Chronic kidney disease, stage 3a Coding Level of Care Code Est Pt Level 4 (75034) Diagnoses Stage 3a chronic kidney disease N18.31 Chronic kidney disease stage 3 subtype: stage 3a (GFR 45-59) Essential hypertension I10 Hypertension type: essential hypertension
[2024-07-14 12:03] VITALS: BP 106/60; PULSE 65; O2SAT 97
--- OUTSIDE RECORDS SUMMARY | 2024-07-14 12:34 | XMS_ITS | Patient Health Record ---
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 Name Role Phone Barbara Victor Primary Care Provider Sergio Montelongo Unavailable [phone] Allergies Allergen (clinical drug ingredient) Drug/Non Drug [...] Problem Acquired hammer toe of right foot (74485925113326 05) Other hammer toe(s) (acquired), right foot (M20.41) Active confirmed Problem Type 2 diabetes mellitus with peripheral angiopathy (931100307) Type 2 diabetes mellitus with diabetic peripheral angiopathy without gangrene (E11.51) Active confirmed Problem Acquired hammer toe of left foot (40631592357226 03) Other hammer toe(s) (acquired), left foot (M20.42) Active confirmed Vital Signs Blood pressure diastolic 65 mm Hg 06/11/2024 Height 5ft2.5in in 06/11/2024 Blood pressure systolic 128 mm Hg 06/11/2024 Weight 163 lbs 06/11/2024 BMI 29.33 kg/m2 06/11/2024 Procedures Procedure Date Ordered Date Performed Result Body Sit e 25342-CZCBQHP NAIL, 6 OR MORE 07/15/2023 N/A 03683-STLA SKIN LESIONS, OVER 4 07/15/2023 N/A 26134-KLUMZRJ NAIL, 6 OR MORE 09/23/2023 N/A 68735-RAOV SKIN LESIONS, OVER 4 09/23/2023 N/A 59930-EWCOXAS NAIL, 6 OR MORE 11/25/2023 N/A 52061-AZPE SKIN LESIONS, OVER 4 11/25/2023 N/A 96669-URIKHDD NAIL, 6 OR MORE 01/30/2024 N/A 29630-UFXR SKIN LESIONS, OVER 4 01/30/2024 N/A 29111-IVHVFLP NAIL, 6 OR MORE 04/02/2024 N/A 84959-VAPN SKIN LESIONS, OVER 4 04/02/2024 N/A 05159-JSAGCYR NAIL, 6 OR MORE 06/11/2024 N/A 38837-XATU SKIN LESIONS, OVER 4 06/11/2024 N/A Encounters Encounter Location Date Provider Diagnosis [address] [address] 07/15/2023 Sergio Malik Type 2 diabetes mellitus with diabetic peripheral angiopathy without gangrene E11.51 ; Tinea unguium B35.1 ; Pain in right toe(s) M79.674 and Pain in left toe(s) M79.[address] [address] 09/23/2023 Sergio Malik Type 2 diabetes mellitus with diabetic peripheral angiopathy without gangrene E11.51 ; Tinea unguium B35.1 ; Pain in right toe(s) M79.674 and Pain in left toe(s) M79.[address] [address] 11/25/2023 Sergio Helena Type 2 diabetes mellitus with diabetic peripheral angiopathy without gangrene E11.51 ; Tinea unguium B35.1 ; Pain in right toe(s) M79.674 and Pain in left toe(s) M79.[address] [address] 01/30/2024 Sergio Helena Type 2 diabetes mellitus with diabetic peripheral angiopathy without gangrene E11.51 ; Tinea unguium B35.1 ; Pain in right toe(s) M79.674 and Pain in left toe(s) M79.[address] [address] 04/02/2024 Sergio Malik Type 2 diabetes mellitus with diabetic peripheral angiopathy without gangrene E11.51 ; Tinea unguium B35.1 ; Pain in right toe(s) M79.674 ; Pain in left toe(s) M79.675 ; Other hammer toe(s) (acquired), right foot M20.41 and Other hammer toe(s) (acquired), left foot M20.[address] [address] 06/11/2024 Sergio Malik Type 2 diabetes mellitus with diabetic peripheral angiopathy without gangrene E11.51 ; Tinea unguium B35.1 ; Pain in right toe(s) M79.674 and Pain in left toe(s) M79.[address] [address] 11/25/2023 Sergio Malik Assessments Encounter Date Diagnosis (ICD Code) Assessment Notes Treatment Notes Treatment Clinical Notes Section Notes 07/15/2023 Type 2 diabetes mellitus with diabetic peripheral angiopathy without gangrene (ICD-10 - E11.51) 07/15/2023 Tinea unguium (ICD-10 - B35.1) 11/25/2023 Type [...] E11.51) 06/11/2024 Tinea unguium (ICD-10 - B35.1) 09/23/2023 Type 2 diabetes mellitus with diabetic peripheral angiopathy without gangrene (ICD-10 - E11.51) 09/23/2023 Tinea unguium (ICD-10 - B35.1) 09/23/2023 Pain in right toe(s) (ICD-10 - M79.674) 04/02/2024 Pain in right toe(s) (ICD-10 - M79.674) 06/11/2024 Pain in right toe(s) (ICD-10 - M79.674) 01/30/2024 Pain in right toe(s) (ICD-10 - M79.674) 07/15/2023 Pain in right toe(s) (ICD-10 - M79.674) 11/25/2023 Pain in right toe(s) (ICD-10 - M79.674) 07/15/2023 Pain in left toe(s) (ICD-10 - [...] Treatment Pending Test Test Name Order Date 62595-SGPAKUQ NAIL, 6 OR MORE 12/10/2019 90988-JMSDRDM NAIL, 6 OR MORE 02/29/2020 24391-HUPXUFS NAIL, 6 OR MORE 05/30/2020 50510-KXSAFAE NAIL, 6 OR MORE 08/29/2020 07845-VDNVYKJ NAIL, 6 OR MORE 11/28/2020 24358-WRFKDGM NAIL, 6 OR MORE 03/06/2021 35904-QAKYRIP NAIL, 6 OR MORE 06/08/2021 59562-YURINFU NAIL, 6 OR MORE 09/11/2021 86186-BDXGAQN NAIL, 6 OR MORE 12/11/2021 88144-WMQPUXD NAIL, 6 OR MORE 02/15/2022 08250-SWCTGPU NAIL, 6 OR MORE 08/16/2022 54660-FUHFROZ NAIL, 6 OR MORE 11/05/2022 76235-WJCEIAV NAIL, 6 OR MORE 01/07/2023 79617-OERTQTX NAIL, 6 OR MORE 03/11/2023 30327-OPJRZEO NAIL, 6 OR MORE 05/13/2023 25086-TMQMHWN NAIL, 6 OR MORE 07/15/2023 60442-SOGGTCD NAIL, 6 OR MORE 09/23/2023 30791-JRYXKNP NAIL, 6 OR MORE 11/25/2023 73006-GIFGTKO NAIL, 6 OR MORE 01/30/2024 28456-MVIHXQP NAIL, 6 OR MORE 04/02/2024 29831-YUBPKFM NAIL, 6 OR MORE 06/11/2024 38884-ZDFTTXI NAIL, 6 OR MORE 05/28/2022 35010-EYAX SKIN LESIONS, OVER 4 05/29/19 23 98223-MKWM SKIN LESIONS, OVER 4 06/12/19 25 47886-HBYS SKIN LESIONS, OVER 4 04/02/19 25 52220-MAKL SKIN LESIONS, OVER 4 01/30/20 24 67168-SONK SKIN LESIONS, OVER 4 11/25/19 24 02141-WWGC SKIN LESIONS, OVER 4 09/23/19 24 31295-BRYQ SKIN LESIONS, OVER 4 07/15/19 24 98047-WDTE SKIN LESIONS, OVER 4 05/13/19 24 22560-HQRF SKIN LESIONS, OVER 4 03/11/19 24 11260-GKUD SKIN LESIONS, OVER 4 01/08/20 23 20920-GUGX SKIN LESIONS, OVER 4 11/06/19 23 79380-JBJZ SKIN LESIONS, OVER 4 08/17/19 23 94461-FAMB SKIN LESIONS, OVER 4 02/15/19 23 70927-LMXC SKIN LESIONS, OVER 4 12/12/19 91564-ZJDN SKIN LESIONS, OVER 4 09/12/19 15270-WCLZ SKIN LESIONS, OVER 4 06/09/19 22 80818-ROZV SKIN LESIONS, OVER 4 03/06/19 97022-IAQF SKIN LESIONS, OVER 4 11/29/19 05768-PIIM SKIN LESIONS, OVER 4 08/30/19 98835-EUXJ SKIN LESIONS, OVER 4 05/31/19 21 22313-IGSG SKIN LESIONS, OVER 4 02/28/19 40343-MOZV SKIN LESIONS, OVER 4 12/10/19 Next Appt Details Provider Name:Sergio Malik , 08/20/2024 08:45:00 AM, [address] [place] [address], [phone], Provider Name:Sergio Malik , 10/29/2024 08:45:00 AM, [address] [place] [address], [phone], Insurance Providers Payer Name Payer Address Payer Phone Subscriber Number Group Number Insured Name Patient Relationship to Insured Coverage Start Date Coverage End Date [employer] Benefits [address] [address] [place] [address] [id number] Joanna Tse Self - patient is the insured Medical (General) History Medical History History ICD Code Rheumatoid Arthritis Cancer - Thyroid High blood pressure Rheumatic fever Chicken pox Bone implants/screws CAD type II diabetes Surgical History Surgery Date(Month/Year) Thyroid Surgery 04/26,11/09/21 Broken wrist 05/25 bunion Surgery 2008 Right quad rupture repair 07/23/23 hysterectomy 06/09/2023
== END 2024-07-14 12:24 | disposition home or self-care (01) ==
LOC: HO.HKA 11:53
PROVIDERS: PCP Internal Medicine; Visit Provider Internal Medicine Nephrology
DX: N18.31 Chronic kidney disease, stage 3a (principal); I10 Essential (primary) hypertension
CPT/HCPCS: 99214

== ENCOUNTER 2024-08-10 14:23 | Outpatient (AMB) | payer OTHER, SELFPAY ==
[2024-08-10 14:43] VITALS: BP 106/54; PULSE 79; TEMP 36.7; O2SAT 96
--- NOTE | 2024-08-10 14:43 | MHC.OFFWIV ---
Intake Vital Signs 08/10/24 14:43 Height 5 ft 2.5 in BMI Reason not done Patient refused/unable BP 106/54 L Blood Pressure Location Lt brachial Position Sitting Pulse 79 Pulse Source Pulse Oximeter Temp 98.1 F Temp Source Oral Pulse Oximetry (%) 96 Oxygen Delivery Method Room Air Intake Visit Reasons: EP-cough, sore throat, body & ears ache Intake Note: pt presents with dry cough, sore throat, body aches, fever. neg covid test today Patient Tobacco Use Status: Never used Tobacco Allergies ciprofloxacin (Cipro) Allergy (Intermediate, Verified 08/10/24 14:48) rash amlodipine Adverse Reaction (Intermediate, Verified 08/10/24 14:48) swelling Do you need a note to return to daycare/school/sports/work: No HPI HPI Comments History of Present Illness Details History - The patient is a 63-year-old female presenting with a cough and congestion. - Symptoms began approximately one week ago, with the worst episode occurring last night, characterized by a fever of 100.2?F and severe chills. - Reports a persistent cough that was severe enough to disturb her 's sleep, prompting her to move downstairs. - Describes the cough as non-productive, with no sputum production, and notes that it has improved slightly today. - Denies any recent exposure to sick contacts, although she mentions sitting next to a colleague who was unwell during a meeting last Friday. - Experiences occasional ear pain, described as a tickly sensation, which was present this morning but has since resolved. - Takes Zyrtec for allergies but reports no relief of her current symptoms. - Prefers not to take additional medications unless necessary. - She has been trying to drink fluids. - She denies CP, SOB, abd pain, n/v/d, or smoking. Physical Exam General: Cooperative, healthy appearing, comfortable and no acute distress Orientation/consciousness: Patient oriented x3 Head: Normal to inspection Ears: Hearing grossly normal bilaterally, external ears normal. Nose: Normal external nose present, normal nares present, and no nasal discharge present. Face and sinus: Sinuses nontender to palpation. Mouth: Normal oral and palatal mucosa present and moist mucous membranes noted. Throat: Tonsils normal. Uvula is midline. Posterior oropharynx with erythema and no exudates. Eyes: Appearance normal, both eyes and all related structures Neck: Normal visual inspection, full ROM. No lymphadenopathy noted. Respiratory: Clear to auscultation bilaterally. Normal respiratory effort, able to speak in complete sentences. No respiratory distress, not tachypneic, no tripod positioning and no use of accessory muscles. Cardiovascular: Regular rate and rhythm. 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 History of radioactive iodine thyroid ablation History of hyperparathyroidism Postoperative hypothyroidism Vitamin D deficiency Thyroid cancer Type 2 diabetes mellitus with hyperglycemia Hypothyroid Obesity (BMI 30-39.9) Parotitis History of thyroid cancer Rheumatoid arthritis Hypercholesterolemia Hypertension Insomnia Surgical History History of hernia repair H/O knee surgery History of hysterectomy History of hysteroscopy History of thyroid surgery History of parathyroid surgery H/O wrist surgery History of tonsillectomy History of section Family History Father CAD (coronary artery disease) Mother Dementia CAD (coronary artery disease) Sister Breast cancer Depression Social History Housing: House Are you a primary personal care home administrator to a significant other at home: No Do you presently have visiting nurse or other home services: No Alcohol intake: current Alcohol intake frequency: holidays/special occasions only Patient Tobacco Use Status: Never used Tobacco Tobacco use type: Cigarette e-Cigarette/Vaping Use: Never Used Second Hand Smoke Exposure: No service: No Current occupational status: employed Current occupational exposures/hazards: No Cognitive needs: No Hearing needs: No Vision needs: Yes Female Reproductive History Menstrual Age of Menarche: 12 Review of Systems Const All systems reviewed & are unremarkable except as noted in HPI and below Physical Exam Vital Signs: Last Vital Signs Temp 98.1 F 08/10/24 14:43 Pulse 79 08/10/24 14:43 Pulse Ox 96 08/10/24 14:43 Oxygen Delivery Method Room Air 08/10/24 14:43 Assessment & Plan Assessment & Plan (1) Cough: Code(s): R05.9 - Cough, unspecified Qualifiers: Cough type: acute Qualified Code(s): R05.1 - Acute cough Plan Most likely URI vs flu vs bronchitis vs viral syndrome Plan - Prescribe an inhaler, cough medicine, and prednisone to manage symptoms and reduce inflammation. - Discuss the option of a chest x-ray if pneumonia is suspected, though not deemed necessary at this time. - Patient prefers to avoid antibiotics unless absolutely necessary, given the upcoming holiday weekend will send to the pharmacy and can take if not feeling better by Friday. Medications: New azithromycin For 250 mg dose pack: take 500 mg today (day 1), then 250 mg for 4 days (days 2-5) PO 6 tabs 0RF prednisone 40 mg (2 x 20 mg) PO DAILY 10 tabs 0RF albuterol sulfate 90 mcg/actuation 2 puffs inhalation Q6H PRN 8.5 grams 0RF shortness of breath or wheezing or cough benzonatate 100 mg PO bid-tid PRN 21 caps 0RF Cough 7 days Coding Level of Care Code Est Pt Level 3 (85078) Diagnoses Acute cough R05.1 Cough type: acute
--- OUTSIDE RECORDS SUMMARY | 2024-08-10 15:33 | XMS_ITS | Referral Summary ---
Author Organization [facility] Address [address] [place] [address] Care Team Providers Care Residential Tech Name Role Phone ValenteBarbara Katelynn Primary Care Provider [phone] Allergies Active Allergy Reactions Criticality Noted Date [...] in February. Rheumatoid arthritis 10/16/2008 Overview (11/01/2016): kiln furniture saw tender Dr. 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 [...] 82 11/26/2022 2:59 PM EDT Temperature 36.8 C (98.3 F) 11/26/2022 2:59 PM EDT Respiratory Rate 16 06/29/2021 1:46 PM EDT [...] Health Maintenance Results * Due to [place] state law, this organization might not be sharing negative HIV tests. * (ABNORMAL) Microalbumin/Creatinine Urine Ratio, Random (01/24/2020 9:14 AM EST) Microalbumin, Urine 5.0 mg/dL 01/24/2020 11:04 AM EST [facility] Creatinine, Urine 23 15 - 278 mg/dL 01/24/2020 11:04 AM EST [facility] Microalb/Creat Ratio, Random Urine 217.4(H) <30.0 mcg/mgCr 01/24/2020 11:04 AM EST [facility] Comment: Microalbumin Reference Range: Normal <30 mcg/mg Creatinine Microalbuminuria 30-300 mcg/mg Creatinine Clinical Albuminuria >300 mcg/mg Creatinine Reference: ADA Guideline. Diabetes Care. 2004;27 (suppl 1) Urine Voided urine specimen / Unknown Non-Blood Collection / Unknown 01/24/2020 9:14 AM EST 01/24/2020 10:30 AM EST us Meaghan Ziegler MD LAB URINE ORDERABLES Final Res ult [facility] [address] [place] [address], [place] * (ABNORMAL) Basic Metabolic Panel, Outside Lab (08/30/2019) Potassium 4.9 Creatinine 1.45(H) mg/dL eGFR Non- 37(L) Blood Structure of peripheral vein / Unknown 08/30/2019 us Unknown Provider LAB BLOOD ORDERABLES Final R esult * (ABNORMAL) Hemoglobin A1c (05/28/2017 3:55 PM EDT) Hemoglobin A1C 7.6(H) <5.7 % of total Hgb 05/28/2017 10:49 PM EDT Assignment Editor Comment: For someone without known diabetes, a [...] A1c for diagnosis of diabetes for children. eAG (MG/DL) 171 (calc) 05/28/2017 10:49 PM EDT Assignment Editor eAG (MMOL/L) 9.5 (calc) 05/28/2017 10:49 PM EDT Assignment Editor Blood specimen (specimen) Structure of peripheral vein / Unknown Venipuncture / Unknown 05/28/2017 3:55 PM EDT 05/28/2017 4:30 PM EDT [facility] - 05/28/2017 10:49 PM EDT [facility] Received Date:[id number] Jose Manuel Bell MD LAB BLOOD ORDERABLES Final Re sult [facility]NE[facility] [address], [place] [address], [place] [phone] [facility] [address], [place] [address], [place] [phone] * DIABETES EYE EXAM (07/31/2016 9:16 AM EDT) Eye Exam [id number] [facility] MANUAL RESULTS 07/31/2016 9:16 AM EDT Benita Napier MD HEALTH MAINTENANCE Final Resul t [facility] MANUAL RESULTS * MAMMOGRAPHY (05/15/2016 12:00 AM EDT) Mammogram Benign/ there are scattered areas of fibroglandular density . No significant change from prior study 2 OUTSIDE LABORATORY Anatomical Region Laterality Modality Other 05/15/2016 us Historical Conversion Provider HEALTH MAINTENANC E Final Result * Pap w/HPV (06/17/2014 10:55 AM EDT) Path Procedure TPGAS (165097) 1 HPVHR(268096) 1 Edited by: [id number] - 1054 JOI [id number] - 1324 -SCRPT6 [facility] Specimen Labeled As: 1 CERVICAL/ENDOCERVI MAKAYLA CYTO MATERIAL - Edited by: [id number] VALENTE [facility] Additional Test Information Specimens were tested for high risk HPV using the FDA approved Digene Hybrid Capture II kit, in the Diagnostic Molecular Oncology Lab at [facility]. This test can detect HPV high risk types 16, 18, 31, 33, 35, 39, 45, 51, 52, 56, 58, 59 and 68. High-risk subtypes of HPV are found in ~96% of patients with high grade squamous intraepithelial lesions and cervical squamous cell carcinoma. Additional studies may be indicated in spite of a negative HPV test, e.g. in patients with a friable cervix or multiple previous abnormal Pap tests. HPV testing is not recommended for managing patients with atypical glandular cells. Not all high-risk HPV infections are associated with a histologic or cytologic abnormality. We endorse the recommendations of the [place] Society for Colposcopy and Cervical Pathology for management of Pap test results, available at www.asccp.org. ASCCP guidelines also recommend HPV 16/18 genotyping in patients over the age of 30 who have had positive high risk HPV testing, but have a negative morphologic Pap test (http://www.asccp. org/consensus.shtm l). The performance characteristics of this test have been validated by the Laboratory of Diagnostic Molecular Oncology. They have not been cleared or approved by the U.S. Food and Drug Administration (FDA). The FDA has determined that such clearance or approval is not necessary. The laboratory is certified (CLIA-88) to perform high complexity clinical laboratory testing. Edited by: [id number] - 1324 BW-SCRPT6 [facility] Diagnosis ThinPrep Pap Test Adequacy: Satisfactory for evaluation Interpretation: Negative for Intraepithelial Lesion or Malignancy Remarks/Recommenda tions: This is the result of a morphological screening test with an inherent possibility of a false negative interpretation. This Pap test was examined in accordance with the [facility] Cytopathology Laboratory written policy, which incorporates all CLIA mandates. Screening guidelines can be found in Am J Clin Pathol 2012;137:516-542. We endorse the practice guidelines developed by ASCCP and published in the Journal Lower Genital Tract Disease 17(5):S1-S27 (2013). This Pap test was examined by the ThinPrep Imaging System, [employer], [place], [place]. - High risk HPV DNA subtypes: NEGATIVE Edited by: [id number] - 1324 BW-SCRPT6 [id number] - 1142 FERRAROLaurie [facility] Gynecologic Clinical Data Specimen source:, THINPREP (CERVICAL AND ENDOCERVICAL) [facility] Gynecologic Clinical Data Gynecologic findings:, POST MENOPAUSAL [facility] Pathology Codes Client Order Code:, TPHGS3 [facility] Pathology Codes Bill Type:, 3RD LIBERTARIAN BILLING [facility] Completed Report [id number] HPV, HIGH RISK TYPES 1 [facility] Marker 1 ELISEOTOR LAURA [facility] Marker 2 MDNEG,MD NEGATIVE [facility] Marker 3 NILM,NILM [facility] Marker 4 RIM,RECEIVED IN MOLECULAR [facility] Marker 5 SMCRISTY Shine-ANDI [facility] Cc Results To COMPA GARNER [id number] JOHNNY SIU [id number] [facility] Signature REPORT SIGNED: TOR LAURA 06/29/14 [facility] Sign Out Audit TOR LAURA [id number] FINAL [place] [id number] [facility] Cytology / Unknown 10:55 AM EDT 06/20/2014 10:55 AM EDT Juliet Napier MD LAB HISTORICAL RESULT S Final Result [facility] [address] [place] [address], * Hepatitis C Antibody w/Reflex to HCV RNA, Quantitative PCR (03/03/2014 2:31 PM EST) Hepatitis C Antibody NON-REACTI VE NON-REACT CRISTINA [facility] Signal To Cut-Off 0.06 <1.00 [facility] 03/03/2014 2:31 PM EST 03/03/2014 3:50 PM EST Jessi Garcia LAB BLOOD ORDERABLES Final Resul t [facility] from Last 3 Months or Most Recently Relevant to Health Maintenance Insurance [employer] Advance Directives Documents on File Type Date Recorded Patient Log Washer Expl anation Advance Directive 09/12/2014 12:00 AM [facility] dical Dec Making (Adv.Dir) Care Teams Residential Tech Relationship Specialty Start Date End Date Barbara Victor [address] [place] [address] [place] [address] PCP - General Internal Medicine 06/24/17
--- OUTSIDE RECORDS SUMMARY | 2024-08-10 15:33 | XMS_ITS | Clinical Summary ---
Author Organization [facility] Address [address] [id number] Care Team Providers Care Anchor Tack Puller Name Role Phone Anderson Sanchez Primary Care Provider [phone] Allergies No known active allergies Medications Diclofenac-Mis [...] 61 07/29/2013 7:31 PM EDT Temperature 36.7 C (98 F) 07/29/2013 7:31 PM EDT Respiratory Rate - [...] (Shingrix) (1 of 2) 08/13/2009 COVID-19 Vaccine (1 - 2023-2 5 season) 2023 Influenza (#1) 2024 RSV (1 - 1-dose 75+ series) [...] complete this topic Zoster (Zostavax) Discontinued Insurance [facility] * Guarantor: [employer] Account Type Relation to Patient Date of Phone Billing Address [employer] [address] [place] [address] E[employer]EMED ACCESS Care Teams Anchor Tack Puller Relationship Specialty Start Date End Date Anderson Sanchez [address] [address] PCP - General Rheumatology 06/10/12
--- OUTSIDE RECORDS SUMMARY | 2024-08-10 15:33 | XMS_ITS | Patient Health Record ---
[facility] Address [address] [place] [address] Care Team Providers Care Supervisor Boiler Repair Name Role Phone Barbara Victor Primary Care Provider Sergio Montelongo Unavailable [phone] Allergies Allergen (clinical drug ingredient) Drug/Non Drug [...] affected area Externally to feet Twice a day; Duration: 30 days Not-Taking Lisinopril 10 MG 1 tablet Orally Once a day; Duration: 30 day(s) Active Methotrexate Active metFORMIN HCl 500 MG 1 tablet with a meal Orally four times a day Active Folic Acid 1 MG 1 tablet Orally Once a day; Duration: 30 day(s) Active Simvastatin 10 MG 1 tablet in the evening Orally Once a day; Duration: 30 day(s) Active Levothyroxine Sodium 112 MCG 1 tablet in the morning on an empty stomach Orally Once a day; Duration: 30 day(s) Active Jardiance 25 MG 1 tablet Orally Once a day Active Januvia Active Diclofenac-miSOPROStol 75-0.2 MG 1 tablet with food Orally Twice a day Active amLODIPine Besylate Active Leflunomide & Diclofenac Sod Not-Taking Xeljanz 5 MG 1 tablet Orally Twice a day; Duration: 30 day(s) Not-Taking Prednisone Temp last day [...] Problem Acquired hammer toe of right foot (471041727181 9105) Other hammer toe(s) (acquired), right foot (M20.41) Active confirmed Problem Type 2 diabetes mellitus with diabetic peripheral angiopathy without gangrene (E11.51) Active confirmed Problem Acquired hammer toe of left foot (170163648709 9103) Other hammer toe(s) (acquired), left foot (M20.42) Active confirmed Vital Signs Blood pressure diastolic 65 mm Hg 06/11/2024 Height 5ft2.5in in 06/11/2024 Blood pressure systolic 128 mm Hg 06/11/2024 Weight 163 lbs 06/11/2024 BMI 29.33 kg/m2 06/11/2024 Procedures Procedure Date Ordered Date Performed Result Body Sit e 04947-HZWOJYI NAIL, 6 OR MORE 09/23/2023 N/A 42645-CVGZ SKIN LESIONS, OVER 4 09/23/2023 N/A 42331-KBRWSXB NAIL, 6 OR MORE 11/25/2023 N/A 92283-LFZJ SKIN LESIONS, OVER 4 11/25/2023 N/A 18754-SUTPSTV NAIL, 6 OR MORE 01/30/2024 N/A 93025-SFKA SKIN LESIONS, OVER 4 01/30/2024 N/A 08708-AQJBIZA NAIL, 6 OR MORE 04/02/2024 N/A 12810-MPEN SKIN LESIONS, OVER 4 04/02/2024 N/A 44358-ZMHTGUT NAIL, 6 OR MORE 06/11/2024 N/A 21279-RWXJ SKIN LESIONS, OVER 4 06/11/2024 N/A Encounters Encounter Location Date Provider Diagnosis [address] [address] 09/23/2023 Sergio Helena Type 2 diabetes mellitus with diabetic peripheral angiopathy without gangrene E11.51 ; Tinea unguium B35.1 ; Pain in right toe(s) M79.674 and Pain in left toe(s) M79.[address] [address] 11/25/2023 Sergio Helena Type 2 diabetes mellitus with diabetic peripheral angiopathy without gangrene E11.51 ; Tinea unguium B35.1 ; Pain in right toe(s) M79.674 and Pain in left toe(s) M79.[address] [address] 01/30/2024 Sergio Helena Type 2 diabetes mellitus with diabetic peripheral angiopathy without gangrene E11.51 ; Tinea unguium B35.1 ; Pain in right toe(s) M79.674 and Pain in left toe(s) M79.[address] [address] 04/02/2024 Sergio Helena Type 2 diabetes mellitus with diabetic peripheral angiopathy without gangrene E11.51 ; Tinea unguium B35.1 ; Pain in right toe(s) M79.674 ; Pain in left toe(s) M79.675 ; Other hammer toe(s) (acquired), right foot M20.41 and Other hammer toe(s) (acquired), left foot M20.[address] [address] 06/11/2024 Sergio Malik Type 2 diabetes mellitus with diabetic peripheral angiopathy without gangrene E11.51 ; Tinea unguium B35.1 ; Pain in right toe(s) M79.674 and Pain in left toe(s) M79.[address] [address] 11/25/2023 Sergio Malik Assessments Encounter Date Diagnosis (ICD Code) Assessment Notes Treatment Notes Treatment Clinical Notes Section Notes 09/23/2023 Type 2 diabetes mellitus with diabetic [...] toe(s) (acquired), left foot (ICD-10 - M20.42) 09/23/2023 Other 11/25/2023 Other 01/30/2024 Other 04/02/2024 Other Plan Of Treatment Pending Test Test Name Order Date 50137-QDZQMZP NAIL, 6 OR MORE 12/10/2019 08714-ZJDHCTE NAIL, 6 OR MORE 02/29/2020 43522-TWTITPI NAIL, 6 OR MORE 05/30/2020 33785-FXRGKTH NAIL, 6 OR MORE 08/29/2020 28699-RTWXHNB NAIL, 6 OR MORE 11/28/2020 25851-FJUEHKT NAIL, 6 OR MORE 03/06/2021 48412-FPWPENW NAIL, 6 OR MORE 06/08/2021 68881-UTZRALH NAIL, 6 OR MORE 09/11/2021 23948-DVHQPTV NAIL, 6 OR MORE 12/11/2021 68468-UWIQNKF NAIL, 6 OR MORE 02/15/2022 88307-HZSRIFY NAIL, 6 OR MORE 05/28/2022 49176-VWFAARP NAIL, 6 OR MORE 08/16/2022 11902-DMSOWPA NAIL, 6 OR MORE 11/05/2022 06427-RUZKDKZ NAIL, 6 OR MORE 01/07/2023 96656-DDZYMEL NAIL, 6 OR MORE 03/11/2023 00445-WIDNOFB NAIL, 6 OR MORE 05/13/2023 29927-NEIKJBR NAIL, 6 OR MORE 07/15/2023 11525-SFUPESN NAIL, 6 OR MORE 09/23/2023 14100-XYZBZEN NAIL, 6 OR MORE 11/25/2023 74496-OASVIMW NAIL, 6 OR MORE 01/30/2024 74350-NQKHMMR NAIL, 6 OR MORE 04/02/2024 76695-XDMGLDD NAIL, 6 OR MORE 06/11/2024 64515-HZCM SKIN LESIONS, OVER 4 06/12/19 72074-PNMI SKIN LESIONS, OVER 4 04/02/19 74770-VIEI SKIN LESIONS, OVER 4 01/30/20 65120-DNER SKIN LESIONS, OVER 4 11/25/19 45023-HBZW SKIN LESIONS, OVER 4 09/23/19 40793-EKRL SKIN LESIONS, OVER 4 07/15/19 24 38548-BSIS SKIN LESIONS, OVER 4 05/13/19 09383-CXOP SKIN LESIONS, OVER 4 03/11/19 24 54968-GVAS SKIN LESIONS, OVER 4 01/08/20 23 03597-ZZCY SKIN LESIONS, OVER 4 11/06/19 23 53661-JECF SKIN LESIONS, OVER 4 08/17/19 23 68334-NKIS SKIN LESIONS, OVER 4 05/29/19 55758-QTYE SKIN LESIONS, OVER 4 02/15/19 23 58232-SVFX SKIN LESIONS, OVER 4 12/12/19 38207-CFOP SKIN LESIONS, OVER 4 09/12/19 88152-NVYC SKIN LESIONS, OVER 4 06/09/19 09552-KXDP SKIN LESIONS, OVER 4 03/06/19 87607-DGLL SKIN LESIONS, OVER 4 11/29/19 93740-JJKZ SKIN LESIONS, OVER 4 08/30/19 91331-PGKY SKIN LESIONS, OVER 4 05/31/19 21449-QSEX SKIN LESIONS, OVER 4 02/28/19 70881-MPPG SKIN LESIONS, OVER 4 12/10/19 Next Appt Details Provider Name:Sergio Malik , 08/20/2024 08:45:00 AM, [address] [place], [address], Provider Name:Sergio Malik , 10/29/2024 08:45:00 AM, [address] [place], [address], Insurance Providers Payer Name Payer Address Payer Phone Subscriber Number Group Number Insured Name Patient Relationship to Insured Coverage Start Date Coverage End Date [employer] Benefits [address] [address] [place] [address] [id number] Joanna Tse Self - patient is the insured Medical (General) History Medical History History ICD Code Rheumatoid Arthritis Cancer - Thyroid High blood pressure Rheumatic fever Chicken pox Bone implants/screws CAD type II diabetes Surgical History Surgery Date(Month/Year) Thyroid Surgery 04/26,11/09/21 Broken wrist 05/25 bunion Surgery 2008 1984,1986 Right quad rupture repair 07/23/23 hysterectomy 06/09/2023
== END 2024-08-10 15:44 | disposition home or self-care (01) ==
PROVIDERS: PCP Internal Medicine; Visit Provider Physician Assistant Medical
DX: R05.1 Acute cough (principal)

== ENCOUNTER 2024-08-16 14:59 | Outpatient (AMB) | payer OTHER, SELFPAY ==
[2024-08-16 15:02] VITALS: BP 134/70; PULSE 70; O2SAT 96; BMI 29.9
--- NOTE | 2024-08-16 15:02 | A.OFFVIS_ITS ---
Vital Signs 3 08/16/24 15:02 Height 5 ft 2.5 in Weight 166 lb BMI 29.9 BP 134/70 Blood Pressure Location Lt brachial Position Sitting Pulse 70 Pulse Source Pulse Oximeter Pulse Oximetry (%) 96 Oxygen Delivery Method Room Air Intake Visit Reasons: Thyroid Cancer Intake Note: Patient present today for Thyroid Cancer. [employer] Required: No Accompanied by: Self / Same As Patient Allergies ciprofloxacin (Cipro) Allergy (Intermediate, Verified 08/16/24 15:06) rash amlodipine Adverse Reaction (Intermediate, Verified 08/16/24 15:06) swelling Medication List - Last Reconciled 08/16/24 by Bernarda Whiteside MD albuterol sulfate 90 mcg/actuation 2 puffs inhalation Q6H PRN azithromycin For 250 mg dose pack: take 500 mg today (day 1), then 250 mg for 4 days (days 2-5) PO benzonatate 100 mg PO bid-tid PRN 7 days blood sugar diagnostic ([employer] test strips) test once daily cholecalciferol (vitamin D3) 125 mcg PO .2x /week cyclosporine 0.05% (Restasis) 1 drp ophthalmic (eye) Q12H diclofenac sodium 37.5 mg (1/2 x 75 mg) PO BID empagliflozin (Jardiance) 25 mg PO DAILY folic acid 1 mg PO DAILY glimepiride 2 mg PO DAILY 90 days levothyroxine 112 mcg PO DAILY 90 days lisinopril 10 mg PO DAILY metformin 500 mg PO BID methotrexate sodium 10 mg (4 x 2.5 mg) PO QWEEK 90 days misoprostol 200 mcg PO BID prednisone 40 mg (2 x 20 mg) PO DAILY simvastatin 10 mg PO BEDTIME sitagliptin phosphate (Januvia) 50 mg PO DAILY 90 days zolpidem (Ambien) 10 mg PO BEDTIME PRN 90 days HPI Comments Details: 64-year-old female coming in today for follow up of thyroid cancer, with a history of PTC status post total thyroidectomy 04/2016 with pathology revealing 1.5 cm right dominant tumor with no lymphovascular invasion, no extrathyroidal extension, with central lymph node dissection with 6/7 lymph nodes positive for PTC (likely AJCC stage I, however pathology report not available, RAHUL intermediate risk of recurrence? ), status post I 131 treatment with radioactive iodine 90 mCi 07/2016 with local lymph node recurrence 2/17 lymph node positive for metastatic PTC status post right lateral neck dissection 11/09/2021, status post radioactive iodine treatment with 150 mCi 02/2022 who is seen for follow up. Currently RAHUL excellent response to therapy. She was previously following with Dr. Freedman, then she saw Dr. Rankin last seen February 2023. History of PTC in detail 04/2016: Was undergoing surgery at [facility] for primary hyperparthyroidism where intraoperatively surgeon detected abnormal thyroid , Diagnosed with multifocal PTC status post total thyroidectomy with pathology revealing 1.5 cm right dominant tumor with no lymphovascular invasion, or extrathyroidal extension with central lymph node dissection with 6/7 lymph nodes positive for PTC. 07/2016: Status post I 131 treatment with 90 mCi, posttreatment whole-body scan at that time revealed uptake within the thyroid bed only. Apparently after that she continued to have stimulated TG levels between 1-10 indicating an indeterminate response. She was followed with a early surveillance ultrasound. Spring 2021: Ultrasound neck showed abnormal cervical lymph node in the right neck, status post FNA biopsy which was positive for metastatic disease. 11/09/2021: Status post right lateral neck dissection with Dr. Krsi Gant at [facility], with a resection of her right cervical 2, 2A, 3, 4 lymph nodes. 2/17 lymph nodes were positive for metastatic PTC 03/04: Status post 150 mCi of I 131 adjuvant treatment. This was completed through withdrawal method. 02/28/2022: TSH 31.4, TG 0.6, negative TG antibodies 03/15/2022: Whole-body scan revealed physiologic uptake only 05/09/2022: PET-CT showed no abnormal FDG activity. 05/13/2022: Ultrasound head and neck without any abnormal lymph nodes. 05/20/2023: Ultrasound of the neck per my review shows normal-appearing lymph nodes 12/10/2023: Ultrasound of the neck showed normal-appearing lymph nodes Interval history No voice changes , no difficulty swallowing Weight stable On levothyroxine 112 mcg daily, appropriate administration and adherence Osteopenia with elevated frax History of hyperparathyroidism Fracture 2015 : right wrist , fell on driveway, 2010: left wrist Notably she also has a history of hyperparathyroidism status post single gland [facility] 2016. [facility]EXA 01/03: Normal bone density of the lumbar spine with T-score of 0.3, 2.6% decrease from previous bone density in 2021. T-score-1.3 of the left femoral neck consistent with osteopenia. T-score of -0.9 at the left femur total with a decrease of 3.3% compared to 2021. FRAX score 31.7% for major osteoporotic fracture, hip fracture 1.7%. Vitamin D : one capsule a day Calcium : no supplements , milk: 2times a week , cheese not much , yogurt : none Kidney stones : yes CKD stage 3 , Rheumatoid arthritis Mother fractured hip Steroids : intermittent prednisone courses for RA Menopause : 2018, late 50s, natural menopause , menarche: 11 years S/p hystrectomy plus B/L salpingoophorectomy 2023 because of DUB Occasional acid reflux, no PPI use No seziure history No chronic inflammatory lung or bowel disease All dentures Never smoker Physical exam General: sitting comfortably in no acute distress HEENT: normocephalic/atraumatic, EOM intact, moist oral mucosa Neck: supple, no palpable lymph nodes or masses Cardiac: normal heart sounds Pulm: normal breath sounds B/L, no added breath sounds Abd: not distended, no tenderness Extremities: no edema, no signs of myxedema Neuro: AAO x3, Speech: normal, no facial droop, moving all 4 extremities Laboratory Tests 02/12/18 07/28/20 12/01/20 07:44 08:20 07:00 Free T4 1.66 1.25 1.46 TSH 0.03 L 0.15 L Thyroglobulin Thyroglobulin Antibody 03/08/21 06/15/21 07/19/21 07:58 07:50 08:15 Free T4 1.20 1.18 TSH 5.77 H 0.24 L 0.03 L Thyroglobulin 0.6 L Thyroglobulin Antibody <1 12/19/21 02/28/22 02/28/22 15:00 07:42 07:42 Free T4 1.23 < 0.42 L TSH 0.70 31.39 H Thyroglobulin 0.3 L 0.6 H 0.6 L Thyroglobulin Antibody <1 <1 02/28/22 03/25/22 04/08/22 07:42 13:50 09:21 Free T4 1.09 2.77 H TSH 31.41 H 0.14 L Thyroglobulin 4.4 H Thyroglobulin Antibody <1 <1 05/31/22 07/25/22 03/06/23 08:10 09:02 09:16 Free T4 1.41 1.35 1.33 TSH 0.15 L 0.21 L 0.32 Thyroglobulin 0.1 H 0.1 H <0.1 Thyroglobulin Antibody <1 <1 <1 06/05/23 11/26/23 14:06 07:46 Free T4 1.08 1.54 TSH 0.50 0.09 L Thyroglobulin 0.1 H Thyroglobulin Antibody <1 US SOFT TISSUE NECK 12/10/23 CLINICAL INFORMATION: History thyroid cancer. COMPARISON: Ultrasound soft tissues neck dated 05/20/2023. TECHNIQUE: Ultrasound of the neck soft tissues is performed with high- frequency lopez-scale imaging and color Doppler. FINDINGS: THYROID BED: Prior thyroidectomy. No residual thyroid tissue demonstrated in the thyroid bed. No cystic or solid nodules demonstrated in the thyroid bed. RIGHT NECK SOFT TISSUES: The largest lymph node is follows: Level 5A: 0.5 x 0.2 x 0.5 cm. Normal deborah architecture. LEFT NECK SOFT TISSUES: Unremarkable. US/US soft tiss head and/or neck IMPRESSION: 1. The thyroid gland is surgically absent. No abnormal mass or fluid collection is seen within the former thyroid bed. 2. A small benign, nonpathologically enlarged lymph node is incidentally seen within right cervical level 5A. No cervical lymphadenopathy is presently demonstrated bilaterally. Electronically signed by: Elui Cabral MD 12/11/2023 10:41 AM EDT RP US SOFT TISSUE HEAD/NECK 05/20/23 CLINICAL INFORMATION: Malignant neoplasm of thyroid gland. COMPARISON: Ultrasound soft tissue neck 05/13/2022. Ultrasound soft tissue head/neck 03/05/2017. TECHNIQUE: Linear transducer lopez-scale and color Doppler examination of the thyroid bed and surrounding soft tissue. FINDINGS: No abnormal tissue seen in the thyroid bed or thyroid nodule. There are 4 right cervical lymph nodes. It is difficult to evaluate small lymph nodes for ultrasound morphology given size. There is a right level I-B lymph node measuring 0.7 x 0.3 x 0.6 cm in sagittal AP and transverse dimension. This is normal in morphology and slightly decreased in size from prior exam. There is a right level III lymph node that measures 0.9 x 0.4 x 0.7 cm. This may have a slit-like or absent hilum and possibly could be cystic. This is not appreciated on prior exam. There is a 0.7 x 0.3 x 0.6 cm right level IV lymph node. There is a left level IV lymph node measuring 1 x 0.3 x 0.4 cm. This is increased in size from 0.5 x 0.3 x 0.6 cm on prior exam. This may have been absent or slit-like hilum and possibly be cystic. This was not appreciated on previous exam. There are 2 left cervical lymph nodes. There is a 0.5 x 0.4 x 0.4 cm left level II lymph node. This is not appreciably changed in size from previous exam. US/US soft tiss head and/or neck IMPRESSION: Small bilateral cervical lymph nodes. Largest lymph node is a level IV lymph node on the left which is increased in size. There are 2 new right cervical lymph nodes seen. It is difficult to evaluate morphology of lymph nodes due to small size. US SOFT TISSUE NECK 05/13/22 CLINICAL INFORMATION: History of thyroid cancer/papillary. COMPARISON: None available. TECHNIQUE: Limited ultrasound imaging neck lymph nodes was performed. FINDINGS: There are bilateral lymph nodes visualized. RIGHT NECK: Level Ib: Lymph node measures 1.1 x 0.4 x 0.5 cm and has normal architecture. Level 2: Lymph node measures 0.5 x 0.6 x 0.6 cm. It has normal architecture. LEFT NECK: Level 2: Lymph node measures 0.3 x 0.3 x 0.6 cm. It has abnormal architecture. Level 4: Lymph node measures 0.5 x 0.3 x 0.6 cm. It has normal architecture. US/US soft tiss head and/or neck IMPRESSION: 1. Subcentimeter abnormal-appearing lymph node left neck level 2. Recommend follow-up. The rest of the lymph nodes are benign-appearing. 2. If clinically indicated further evaluation of the neck soft tissues and nodes may be performed with CT soft tissue neck with intravenous contrast. BONE DENSITOMETRY 02/02 CLINICAL INDICATION: Age-related osteoporosis without current pathological fracture. COMPARISON: Previous BD dated 05/04/2021 and baseline BD dated 02/11/2019. TECHNIQUE: Using a [employer] DXA System (software version: 13.1) manufactured by [employer], dual-energy x-ray absorptiometry was performed of the lumbar spine and left hip. The images are of good technical quality. Summary results are attached. FINDINGS: LEFT FEMUR, NECK: Current: BMD 0.862 g/cm2, Z-score -0.1, T-score -1.3, osteopenia. Prior: BMD 0.857 g/cm2. Baseline: BMD 0.865 g/cm2. LEFT FEMUR, TOTAL: Current: BMD 0.897 g/cm2, Z-score 0.0, T-score -0.9, normal, 3.3% decrease from previous, 3.0% decrease from baseline (<5% change is not significant). Prior: BMD 0.928 g/cm2. Baseline: BMD 0.925 g/cm2. AP SPINE L1-L3 (excluding L4): The data of L1-L4 has been changed to exclude the L4 vertebral body, because at this level may cause overestimation of lumbar spine density. Current: BMD 1.200 g/cm2, Z-score 1.4, T-score 0.3, normal, 2.6% decrease from previous, 0.3% decrease from baseline (<5% change is not significant). Prior: BMD 1.232 g/cm2. Baseline: BMD 1.204 g/cm2. IDENTIFIED RISK FACTORS: Menopause, hysterectomy, renal, rheumatoid arthritis, height loss, family history (parent hip fracture). HISTORY OF FRACTURE: Wrist. MEDICATIONS: Vitamin D. MM/XR DEXA axial skeleton IMPRESSION: 1. DIAGNOSIS: Osteopenia based on the lowest T-score value of -1.3 in the femoral neck applying World Health Organization criteria. 2. 10-YEAR FRACTURE RISK PREDICTION, FRAX: Major osteoporotic fracture (clinical spine, forearm, hip or shoulder) 31.7%. Hip fracture 1.7%. [facility] Medical History (Updated 08/16/24 @ 15:54 by Bernarda Whiteside MD) Abdominal wall hernia Anterolisthesis of cervical spine Methotrexate, senior living, current use History of radioactive iodine thyroid ablation History of hyperparathyroidism Postoperative hypothyroidism Vitamin D deficiency Thyroid cancer Type 2 diabetes mellitus with hyperglycemia Hypothyroid Obesity (BMI 30-39.9) Parotitis History of thyroid cancer Rheumatoid arthritis Hypercholesterolemia Hypertension Insomnia Surgical History History of hernia repair H/O knee surgery History of hysterectomy History of hysteroscopy History of thyroid surgery History of parathyroid surgery H/O wrist surgery History of tonsillectomy History of section Family History Father CAD (coronary artery disease) Mother Dementia CAD (coronary artery disease) Sister Breast cancer Depression Social History Housing: House Are you a primary care transport nurse to a significant other at home: No Do you presently have visiting nurse or other home services: No Alcohol intake: current Alcohol intake frequency: holidays/special occasions only Patient Tobacco Use Status: Never used Tobacco Tobacco use type: Cigarette e-Cigarette/Vaping Use: Never Used Second Hand Smoke Exposure: No service: No Current occupational status: employed Current occupational exposures/hazards: No Cognitive needs: No Hearing needs: No Vision needs: Yes Female Reproductive History Menstrual Age of Menarche: 12 Physical Exam Vital Signs: Last Vital Signs Pulse 70 08/16/24 15:02 BP 134/70 08/16/24 15:02 Pulse Ox 96 08/16/24 15:02 Oxygen Delivery Method Room Air 08/16/24 15:02 BMI result Body Mass Index 29.9 Assessment & Plan Assessment & Plan (1) History of thyroid cancer: Comment: Papillary April [address]. Johny Buckner Right selective neck dissection November 2021 Code(s): Z85.850 - Personal history of malignant neoplasm of thyroid Category: Medical Plan: 64-year-old female coming in today for follow up of thyroid cancer, with a history of PTC status post total thyroidectomy 04/2016 with pathology revealing 1.5 cm right dominant tumor with no lymphovascular invasion, no extrathyroidal extension, with central lymph node dissection with 6/7 lymph nodes positive for PTC (likely AJCC stage I, however pathology report not available, RAHUL intermediate risk of recurrence? ), status post I 131 treatment with radioactive iodine 90 mCi 07/2016 with local lymph node recurrence 03/29 lymph node positive for metastatic PTC status post right lateral neck dissection 11/09/2021, status post radioactive iodine treatment with 150 mCi 02/2022 who is seen for follow up. Currently RAHUL excellent response to therapy. Last ultrasound neck from November 2023 with normal-appearing lymph nodes. At this point I will repeat an ultrasound of her neck since it has been about a year. Her last set of labs are also from November 2023 where TSH was low at 0.09, free T4 1.54, TG 0.1, TG antibody less than 1. Her TG levels have been less than 0.1 recently, consistent with the excellent response to therapy. I would like to repeat TFTs now since no recent TFTs in the chart. If her TG levels continue to be undetectable, and her ultrasound is unremarkable, we can liberalize her TSH to 0.5-2. Plan: -ordered TSH, free T4, TG, TG antibody levels -ordered ultrasound of the neck -continue levothyroxine 112 mcg daily -follow up in 6 weeks to discuss results (2) Postoperative hypothyroidism: Code(s): E89.0 - Postprocedural hypothyroidism Category: Medical Plan: Currently on levothyroxine 112 mcg daily. Last set of TFTs are November 2023 which showed TSH was low at 0.09, free T4 1.54, TG 0.1, TG antibody less than 1. Her TG levels have been less than 0.1 recently, consistent with the excellent response to therapy. I would like to repeat TFTs now since no recent TFTs in the chart. If her TG levels continue to be undetectable, and her ultrasound is unremarkable, we can liberalize her TSH to 0.5-2. Plan: -ordered TSH, free T4 to be done now -follow up in 6 weeks to discuss results -continue levothyroxine 112 mcg daily (3) Osteopenia: Comment: February 2019, 12/2023 Code(s): M85.80 - Other specified disorders of bone density and structure, unspecified site Category: Medical Qualifiers: Osteopenia location: hip Laterality: left Qualified Code(s): M85.852 - Other specified disorders of bone density and structure, left thigh Plan: History of hyperparathyroidism, status post [facility] Now noted to have osteopenia with DEXA scan in December 2023 showing Normal bone density of the lumbar spine with T-score of 0.3, 2.6% decrease from previous bone density in 2021. T-score-1.3 of the left femoral neck consistent with osteopenia. T-score of -0.9 at the left femur total with a decrease of 3.3% compared to 2022. FRAX score 31.7% for major osteoporotic fracture, hip fracture 1.7%. FRAX score is meeting treatment criteria. She has had 2 previous wrist fractures however that was before her surgery for parathyroid. Risk factors for bone loss are age, being postmenopausal, history of primary hyperparathyroidism, poor nutritional intake of calcium, history of rheumatoid arthritis on methotrexate previously, intermittent steroid use, family history of osteoporosis. I would like to order secondary workup for osteoporosis with a 24 hour urine evaluation, as well as obtain bone resorption markers. We briefly discussed that she meets criteria for treatment and we will go over therapy once secondary workup is back. She is on vitamin-D supplements but does not know the dose, she should continue this, I have asked her to bring her supplement bottles to next visit. Plan: -ordered calcium, albumin, ionized calcium, phosphorus, PTH, creatinine, CTX, bSAP 24 hour urine calcium and creatinine -bring supplement bottles to next visit -continue vitamin-D -follow up in 6 weeks to discuss results (4) History of hyperparathyroidism: Code(s): Z86.39 - Personal history of other endocrine, nutritional and metabolic disease Category: Medical Plan: See above Plan I spent 50 minutes in reviewing the record, seeing the patient and documenting in the medical record. Orders: Orders 2 Free T4 (Free Thyroxine) Today E89.0 - Postprocedural hypothyroidism, Z85.850 - Personal history of malignant neoplasm of thyroid Thyroglobulin Antibodies Today E89.0 - Postprocedural hypothyroidism, Z85.850 - Personal history of malignant neoplasm of thyroid Phosphorus Today E89.0 - Postprocedural hypothyroidism, M85.80 - Other specified disorders of bone density and structure, unspecified site, Z85.850 - Personal history of malignant neoplasm of thyroid, Z86.39 - Personal history of other endocrine, nutritional and metabolic disease Parathyroid Hormone Intact Today E89.0 - Postprocedural hypothyroidism, M85.80 - Other specified disorders of bone density and structure, unspecified site, Z85.850 - Personal history of malignant neoplasm of thyroid, Z86.39 - Personal history of other endocrine, nutritional and metabolic disease Protein Electrophoresis, Serum Today E89.0 - Postprocedural hypothyroidism, M85.80 - Other specified disorders of bone density and structure, unspecified site, Z85.850 - Personal history of malignant neoplasm of thyroid, Z86.39 - Personal history of other endocrine, nutritional and metabolic disease Immunofixation Pnl, Serum Today E89.0 - Postprocedural hypothyroidism, M85.80 - Other specified disorders of bone density and structure, unspecified site, Z85.850 - Personal history of malignant neoplasm of thyroid, Z86.39 - Personal history of other endocrine, nutritional and metabolic disease Collagen Type I C-Telopeptide Today E89.0 - Postprocedural hypothyroidism, M85.80 - Other specified disorders of bone density and structure, unspecified site, Z85.850 - Personal history of malignant neoplasm of thyroid, Z86.39 - Personal history of other endocrine, nutritional and metabolic disease Alkaline Phosphatase Bone Today E89.0 - Postprocedural hypothyroidism, M85.80 - Other specified disorders of bone density and structure, unspecified site, Z85.850 - Personal history of malignant neoplasm of thyroid, Z86.39 - Personal history of other endocrine, nutritional and metabolic disease Thyroid Stimulating Hormone Today E89.0 - Postprocedural hypothyroidism, Z85.850 - Personal history of malignant neoplasm of thyroid Thyroglobulin Tumor Marker Today E89.0 - Postprocedural hypothyroidism, Z85.850 - Personal history of malignant neoplasm of thyroid Thyroglobulin Today E89.0 - Postprocedural hypothyroidism, Z85.850 - Personal history of malignant neoplasm of thyroid US soft tiss head and/or neck Today Z85.850 - Personal history of malignant neoplasm of thyroid Albumin Level Today E89.0 - Postprocedural hypothyroidism, M85.80 - Other specified disorders of bone density and structure, unspecified site, Z85.850 - Personal history of malignant neoplasm of thyroid, Z86.39 - Personal history of other endocrine, nutritional and metabolic disease Calcium Today E89.0 - Postprocedural hypothyroidism, M85.80 - Other specified disorders of bone density and structure, unspecified site, Z85.850 - Personal history of malignant neoplasm of thyroid, Z86.39 - Personal history of other endocrine, nutritional and metabolic disease Vitamin D 25-OH Total Today E89.0 - Postprocedural hypothyroidism, M85.80 - Other specified disorders of bone density and structure, unspecified site, Z85.850 - Personal history of malignant neoplasm of thyroid, Z86.39 - Personal history of other endocrine, nutritional and metabolic disease Calcium, Ionized Today E89.0 - Postprocedural hypothyroidism, M85.80 - Other specified disorders of bone density and structure, unspecified site, Z85.850 - Personal history of malignant neoplasm of thyroid, Z86.39 - Personal history of other endocrine, nutritional and metabolic disease Creatinine, 24 Hr Group Today E89.0 - Postprocedural hypothyroidism, M85.80 - Other specified disorders of bone density and structure, unspecified site, Z85.850 - Personal history of malignant neoplasm of thyroid, Z86.39 - Personal history of other endocrine, nutritional and metabolic disease Calcium, 24 Hr Ur Today E89.0 - Postprocedural hypothyroidism, M85.80 - Other specified disorders of bone density and structure, unspecified site, Z85.850 - Personal history of malignant neoplasm of thyroid, Z86.39 - Personal history of other endocrine, nutritional and metabolic disease Creatinine Today M85.852 - Other specified disorders of bone density and structure, left thigh Patient Instructions: do 24 hr urine collection and the same time as you hand in the urine collection do fasting blood work 24 hr urine collection instructions You have been asked to collect your urine for 24 hours to assess for calcium excretion. You must choose a 24 hour period of time when you will be home. The morning of the first day, DISCARD the FIRST morning void and then note the time. You will collect every single void from then on for 24 hours. For example, if you wake up at 6am and urinate, flush down that void. You will then collect every drop of urine all day and all night through 6am the following day. You will urinate one last time at 6am for the collection. The jug of urine must be kept in the refrigerator until you bring it to the lab. Bring vitamin D and supplement bottles to next visit Do thyroid blood work Do ultrasound of the neck ,someone will call you to schedule this Follow up in 6 weeks to discuss all results Coding Level of Care Code Est Pt Level 5 (52769) Diagnoses History of thyroid cancer Z85.850 Postoperative hypothyroidism E89.0 Osteopenia of left hip M85.852 Osteopenia location: hip Laterality: left History of hyperparathyroidism Z86.39 Time Spent (min) 50
--- OUTSIDE RECORDS SUMMARY | 2024-08-16 15:29 | XMS_ITS | Clinical Summary ---
Author Organization [facility] Address [address] [id number] Care Team Providers Care Regional Intermodal Truck Driver Name Role Phone Anderson Sanchez Primary Care Provider [phone] Allergies No known active allergies Medications Diclofenac-Mis [...] Last Done Comments Hepatitis C Screening 1959 DTaP/Tdap/Td (1 - Tdap) 08/13/1977 Mammogram/Breast Imaging 1999 Pneumococcal 50+ years (1 of 1 - PCV) 08/13/2009 Zoster (Shingrix) (1 of 2) 08/13/2009 COVID-19 Vaccine (1 - 2023-2 5 season) 2023 Bone Density 08/13/2024 Influenza (#1) 2024 RSV (1 - 1-dose [...] on patient's age to complete this topic Pap Smear Discontinued Zoster (Zostavax) Discontinued Insurance [facility] FEE FOR SERVICE PPO * Guarantor: JAVED TSE Account Type Relation to Patient Date of Phone Billing Address [facility] [address] [place] [address] EYEMED ACCESS Care Teams Regional Intermodal Truck Driver Relationship Specialty Start Date End Date Anderson Sanchez [address] [address] PCP - General Rheumatology 06/10/12
--- OUTSIDE RECORDS SUMMARY | 2024-08-16 15:29 | XMS_ITS | Patient Health Record ---
Author Organization [facility] Address [address] [place] [address] Care Team Providers Care Ticket Dispenser Changer Name Role Phone Barbara Victor Primary Care Provider Sergio Montelongo Unavailable [phone] Allergies Allergen (clinical drug ingredient) Drug/Non Drug [...] Problem Acquired hammer toe of right foot (26063929957842 05) Other hammer toe(s) (acquired), right foot (M20.41) Active confirmed Problem Type 2 diabetes mellitus with peripheral angiopathy (589793030) Type 2 diabetes mellitus with diabetic peripheral angiopathy without gangrene (E11.51) Active confirmed Problem Acquired hammer toe of left foot (47510279328132 03) Other hammer toe(s) (acquired), left foot (M20.42) Active confirmed Vital Signs Blood pressure diastolic 65 mm Hg 06/11/2024 Height 5ft2.5in in 06/11/2024 Blood pressure systolic 128 mm Hg 06/11/2024 Weight 163 lbs 06/11/2024 BMI 29.33 kg/m2 06/11/2024 Procedures Procedure Date Ordered Date Performed Result Body Sit e 39372-HLEXVIO NAIL, 6 OR MORE 09/23/2023 N/A 05583-SNHM SKIN LESIONS, OVER 4 09/23/2023 N/A 58301-LCWRNMU NAIL, 6 OR MORE 11/25/2023 N/A 51756-PLHZ SKIN LESIONS, OVER 4 11/25/2023 N/A 68715-WEXVOYM NAIL, 6 OR MORE 01/30/2024 N/A 68665-ILMR SKIN LESIONS, OVER 4 01/30/2024 N/A 74359-SREUEPM NAIL, 6 OR MORE 04/02/2024 N/A 82049-DUMX SKIN LESIONS, OVER 4 04/02/2024 N/A 49357-VSSMPVH NAIL, 6 OR MORE 06/11/2024 N/A 18583-HXJR SKIN LESIONS, OVER 4 06/11/2024 N/A Encounters Encounter Location Date Provider Diagnosis [address] [address] 09/23/2023 Sergiomalachi [place] Type 2 diabetes mellitus with diabetic peripheral angiopathy without gangrene E11.51 ; Tinea unguium B35.1 ; Pain in right toe(s) M79.674 and Pain in left toe(s) M79.[address] [address] 11/25/2023 Sergiomalachi Mla[place] Type 2 diabetes mellitus with diabetic peripheral angiopathy without gangrene E11.51 ; Tinea unguium B35.1 ; Pain in right toe(s) M79.674 and Pain in left toe(s) M79.[address] [address] 01/30/2024 Sergio [place] Type 2 diabetes mellitus with diabetic peripheral angiopathy without gangrene E11.51 ; Tinea unguium B35.1 ; Pain in right toe(s) M79.674 and Pain in left toe(s) M79.[address] [address] 04/02/2024 Sergio [place] Type 2 diabetes mellitus with diabetic peripheral angiopathy without gangrene E11.51 ; Tinea unguium B35.1 ; Pain in right toe(s) M79.674 ; Pain in left toe(s) M79.675 ; Other hammer toe(s) (acquired), right foot M20.41 and Other hammer toe(s) (acquired), left foot M20.[address] [address] 06/11/2024 Sergio Malik Type 2 diabetes mellitus with diabetic peripheral angiopathy without gangrene E11.51 ; Tinea unguium B35.1 ; Pain in right toe(s) M79.674 and Pain in left toe(s) M79.[address] [address] 11/25/2023 Sergio Malik Assessments Encounter Date Diagnosis [...] Treatment Pending Test Test Name Order Date 62927-HEEKWUI NAIL, 6 OR MORE 12/10/2019 60798-ZNGJNFW NAIL, 6 OR MORE 02/29/2020 17677-XGQZSMM NAIL, 6 OR MORE 05/30/2020 54262-IVUUIWD NAIL, 6 OR MORE 08/29/2020 87928-XGHFCRE NAIL, 6 OR MORE 11/28/2020 80270-GVRNJFM NAIL, 6 OR MORE 03/06/2021 47786-XRXULPU NAIL, 6 OR MORE 06/08/2021 08325-UVWOSKV NAIL, 6 OR MORE 09/11/2021 87191-TYHRDQK NAIL, 6 OR MORE 12/11/2021 35053-VLBFIOP NAIL, 6 OR MORE 02/15/2022 25455-IWQFQFL NAIL, 6 OR MORE 05/28/2022 08905-AZUSUYZ NAIL, 6 OR MORE 08/16/2022 67397-EJMIHSV NAIL, 6 OR MORE 11/05/2022 92775-XQVGCXJ NAIL, 6 OR MORE 01/07/2023 45048-VJTJACG NAIL, 6 OR MORE 03/11/2023 18076-SVOXBJN NAIL, 6 OR MORE 05/13/2023 80724-XUNEIGP NAIL, 6 OR MORE 07/15/2023 90127-LABYGQH NAIL, 6 OR MORE 09/23/2023 35617-KYZJFDY NAIL, 6 OR MORE 11/25/2023 35069-MEUQKBN NAIL, 6 OR MORE 01/30/2024 59049-ITGHEQS NAIL, 6 OR MORE 04/02/2024 58868-BOGDPJI NAIL, 6 OR MORE 06/11/2024 97462-EEAK SKIN LESIONS, OVER 4 06/12/19 28577-PRCT SKIN LESIONS, OVER 4 04/02/19 36814-PTCI SKIN LESIONS, OVER 4 01/30/20 68574-XMJT SKIN LESIONS, OVER 4 11/25/19 09145-MGZQ SKIN LESIONS, OVER 4 09/23/19 24 25211-ZUBN SKIN LESIONS, OVER 4 07/15/19 57842-LDYY SKIN LESIONS, OVER 4 05/13/19 40201-RGXM SKIN LESIONS, OVER 4 03/11/19 87149-VGIL SKIN LESIONS, OVER 4 01/08/20 23 68070-AZRA SKIN LESIONS, OVER 4 11/06/19 20993-ONHQ SKIN LESIONS, OVER 4 08/17/19 27332-DSMM SKIN LESIONS, OVER 4 05/29/19 81613-WQQD SKIN LESIONS, OVER 4 02/15/19 23 47770-DRQV SKIN LESIONS, OVER 4 12/12/19 73558-DLZT SKIN LESIONS, OVER 4 09/12/19 71769-RRQI SKIN LESIONS, OVER 4 06/09/19 56703-PITY SKIN LESIONS, OVER 4 03/06/19 20536-EXOO SKIN LESIONS, OVER 4 11/29/19 81539-BXRG SKIN LESIONS, OVER 4 08/30/19 30991-TIBF SKIN LESIONS, OVER 4 05/31/19 37009-JCGB SKIN LESIONS, OVER 4 02/28/19 95038-XKXK SKIN LESIONS, OVER 4 12/10/19 Next Appt Details Provider Name:Sergio Malik , 08/20/2024 08:45:00 AM, [address] [place], [address], Provider Name:Sergio Malik , 10/29/2024 08:45:00 AM, [address] [place], [address], Insurance Providers Payer Name Payer Address Payer Phone Subscriber Number Group Number Insured Name Patient Relationship to Insured Coverage Start Date Coverage End Date Blue Benefits [address] [address] [place] [address] [id number] Joanna Tse Self - patient is the insured Medical (General) History Medical History History ICD Code Rheumatoid Arthritis Cancer - Thyroid High blood pressure Rheumatic fever Chicken pox Bone implants/screws CAD type II diabetes Surgical History Surgery Date(Month/Year) Thyroid Surgery 04/26,11/09/21 Broken wrist 05/25 bunion Surgery 2008 1984,1986 Right quad rupture repair 07/23/23 hysterectomy 06/09/2023
--- OUTSIDE RECORDS SUMMARY | 2024-08-16 15:29 | XMS_ITS | Referral Summary ---
Author Organization [facility] Address [address] [place] [address] Care Team Providers Care Toll Relief Operator Name Role Phone ValenteBarbara Katelynn Primary Care Provider [phone] Allergies Active Allergy Reactions Criticality Noted Date [...] in February. 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 Problems [...] Not on file Procedures * Due to [place] state law, this organization might not be [...] to Health Maintenance Results * Due to [place] state law, this organization might not be sharing negative HIV tests. * (ABNORMAL) Microalbumin/Creatinine Urine Ratio, Random (01/24/2020 9:14 AM EST) Microalbumin, Urine 5.0 mg/dL 01/24/2020 11:04 AM EST [facility] Creatinine, Urine 23 15 - 278 mg/dL 01/24/2020 11:04 AM EST [facility] Microalb/Creat Ratio, Random Urine 217.4(H) <30.0 mcg/mgCr 01/24/2020 11:04 AM EST [facility] Comment: Microalbumin Reference Range: Normal <30 mcg/mg Creatinine Microalbuminuria 30-300 mcg/mg Creatinine Clinical Albuminuria >300 mcg/mg Creatinine Reference: ADA Guideline. Diabetes Care. 2004;27 (suppl 1) Urine Voided urine specimen / Unknown Non-Blood Collection / Unknown 01/24/2020 9:14 AM EST 01/24/2020 10:30 AM EST us Meaghan Ziegler MD LAB URINE ORDERABLES Final Res ult [facility] [address] [place] [address], [place] * (ABNORMAL) Basic Metabolic Panel, Outside Lab (08/30/2019) Potassium 4.9 Creatinine 1.45(H) mg/dL eGFR Non- 37(L) Blood Structure of peripheral vein / Unknown 08/30/2019 us Unknown Provider LAB BLOOD ORDERABLES Final R esult * (ABNORMAL) Hemoglobin A1c (05/28/2017 3:55 PM EDT) Hemoglobin A1C 7.6(H) <5.7 % of total Hgb 05/28/2017 10:49 PM EDT [facility] Comment: For someone without known diabetes, a [...] (MG/DL) 171 (calc) 05/28/2017 10:49 PM EDT [facility] eAG (MMOL/L) 9.5 (calc) 05/28/2017 10:49 PM EDT [facility] Blood specimen (specimen) Structure of peripheral vein / Unknown Venipuncture / Unknown 05/28/2017 3:55 PM EDT 05/28/2017 4:30 PM EDT [facility] - 05/28/2017 10:49 PM EDT [facility] Received Date:[id number] Jose Manuel Bell MD LAB BLOOD ORDERABLES Final Re sult ENEIDA MCGARRY [address], [place] [address], [place] [phone] [facility] [address], [place] [address], [place] [phone] * DIABETES EYE EXAM (07/31/2016 9:16 AM EDT) Eye Exam [id number] [facility]SCR[facility]TS MANUAL RESULTS 07/31/2016 9:16 AM EDT Benita Napier MD HEALTH MAINTENANCE Final Resul t [facility] ALLSCRIPTS MANUAL RESULTS * MAMMOGRAPHY (05/15/2016 12:00 AM EDT) Mammogram Benign/ there are scattered areas of fibroglandular density . No significant change from prior study 2 OUTSIDE LABORATORY Anatomical Region Laterality Modality Other 05/15/2016 us Historical Conversion Provider HEALTH MAINTENANC E Final Result * Pap w/HPV (06/17/2014 10:55 AM EDT) Path Procedure TPGAS (976084) 1 HPVHR(273632) 1 Edited by: [id number] - 1054 JOI [id number] - 1324 -SCRPT6 [facility] Specimen Labeled As: 1 CERVICAL/ENDOCERVI MAKAYLA CYTO MATERIAL - Edited by: [id number] VALENTE [facility] Additional Test Information Specimens were tested for high risk HPV using the FDA approved Digene Hybrid Capture II kit, in the Diagnostic Molecular Oncology Lab at [facility]. This test can detect HPV [...] abnormality. We endorse the recommendations of the [place] Society for Colposcopy and Cervical Pathology for [...] high complexity clinical laboratory testing. Edited by: [id number] - 1324 BW-SCRPT6 [facility] Diagnosis ThinPrep Pap Test Adequacy: Satisfactory for evaluation Interpretation: Negative for Intraepithelial Lesion or Malignancy Remarks/Recommenda tions: This is the result of a morphological screening test with an inherent possibility of a false negative interpretation. This Pap test was examined in accordance with the [facility] Cyt[facility] Laboratory written policy, which incorporates all CLIA mandates. Screening guidelines can be found in Am J Clin Pathol 2012;137:516-542. We endorse the practice guidelines developed by ASCCP and published in the Journal Lower Genital Tract Disease 17(5):S1-S27 (2013). This Pap test was examined by the ThinPrep Imaging System, [employer], [place], [place]. - High risk HPV DNA subtypes: NEGATIVE Edited by: [id number] - 1324 BW-SCRPT6 [id number] - 1142 FERRAROLaurie [facility] Gynecologic Clinical Data Specimen source:, THINPREP (CERVICAL AND ENDOCERVICAL) [facility] Gynecologic Clinical Data Gynecologic findings:, POST MENOPAUSAL [facility] Pathology Codes Client Order Code:, TPHGS3 [facility] Pathology Codes Bill Type:, 3RD REPUBLICAN BILLING [facility] Completed Report [id number] HPV, HIGH RISK TYPES 1 [facility] Marker 1 ELISEOTOR LAURA [facility] Marker 2 MDNEG,MD NEGATIVE [facility] Marker 3 NILM,NILM [facility] Marker 4 RIM,RECEIVED IN MOLECULAR [facility] Marker 5 SMCRISTY Shine-ANDI [facility] Cc Results To COMPA GARNER [id number] JOHNNY SIU [id number] [facility] Signature REPORT SIGNED: TOR LAURA 06/29/14 [facility] Sign Out Audit TOR LAURA [id number] FINAL [place] [id number] [facility] Cytology / Unknown 10:55 AM EDT 06/20/2014 10:55 AM EDT Jluiet Napier MD LAB HISTORICAL RESULT S Final Result [facility] [address] [place] [address], * Hepatitis C Antibody w/Reflex to HCV RNA, Quantitative PCR (03/03/2014 2:31 PM EST) Hepatitis C Antibody NON-REACTI VE NON-REACT [facility]RIST[facility] Signal To Cut-Off 0.06 <1.00 [facility] 03/03/2014 2:31 PM EST 03/03/2014 3:50 PM EST Jessi Garcia LAB BLOOD ORDERABLES Final Resul t [facility] from Last 3 Months or Most Recently Relevant to Health Maintenance Insurance [place] [place] Advance Directives Documents on File Type Date Recorded Patient Windows System Admin Expl anation Advance Directive 09/12/2014 12:00 AM [facility] dical Dec Making (Adv.Dir) Care Teams Toll Relief Operator Relationship Specialty Start Date End Date Barbara Victor [address] [place] [address] [place] [address] PCP - General Internal Medicine 06/24/17
== END 2024-08-16 15:51 | disposition home or self-care (01) ==
LOC: HO.ENCR 15:00
PROVIDERS: PCP Internal Medicine; Visit Provider Student in an Organized Health Care Education/Training Program
DX: E89.0 Postprocedural hypothyroidism (principal); Z85.850 Personal history of malignant neoplasm of thyroid; M85.852 Other specified disorders of bone density and structure, left thigh; Z86.39 Personal history of other endocrine, nutritional and metabolic disease
CPT/HCPCS: 99215

== ENCOUNTER 2024-09-17 07:15 | Outpatient (REF) | payer OTHER, SELFPAY ==
--- OUTSIDE RECORDS SUMMARY | 2024-09-17 07:18 | XMS_ITS | Clinical Summary ---
Author Organization [facility] Address [address] [id number] Care Team Providers Care Otr Owner Operator Name Role Phone Anderson Sanchez Primary Care Provider [phone] Allergies No known active allergies Medications Diclofenac-Mis [...] - 1-dose 75+ series) 08/13/2034 HPV Vaccine (No Doses Required) Completed Hep A Aged Out No longer eligi [...] Pap Smear Discontinued Zoster (Zostavax) Discontinued Insurance [facility] FEE FOR SERVICE PPO * Guarantor: J[employer] Account Type Relation to Patient Date of Phone Billing Address [employer] [facility] [address] [place] [address] EYEMED ACCESS Care Teams Otr Owner Operator Relationship Specialty Start Date End Date Anderson Sanchez [address] [address] PCP - General Rheumatology 06/10/12
--- OUTSIDE RECORDS SUMMARY | 2024-09-17 07:18 | XMS_ITS | Patient Health Record ---
[facility] Organization [facility] Address [address] [place] [address] Care Team Providers Care Field Control Inspector Name Role Phone Barbara Victor Primary Care Provider Sergio Montelongo Unavailable [phone] Allergies Allergen (clinical drug ingredient) Drug/Non Drug [...] Once a day; Duration: 30 day(s) Active Ciclopirox Olamine 0.77 % 1 application to affected area Externally to feet Twice a day; Duration: 30 days Not-Taking Simvastatin 10 MG 1 tablet in the evening Orally Once a day; Duration: 30 day(s) Active Terbinafine Not-Taki ng Folic Acid 1 MG 1 tablet Orally Once a day; Duration: 30 day(s) Active Methotrexate Sodium 10 MG as directed Orally once a week Not-Taking metFORMIN HCl 500 MG 1 tablet with a meal Orally four times a day Active Prednisone Temp last day 09/11/21 Not-Taking Xeljanz 5 MG 1 tablet Orally Twice a day; Duration: 30 day(s) Not-Taking Diclofenac-miSOPROStol 75-0.2 MG 1 tablet with food Orally Twice a day Active Leflunomide & Diclofenac Sod Not-Taking Jardiance 25 MG 1 tablet Orally Once a day Active Tradjenta 5 MG 1 tablet Orally Once a day Not-Taking amLODIPine Besylate Active Methotrexate Active Lisinopril 10 MG 1 tablet Orally Once a day; Duration: 30 day(s) Active Januvia Active Leflunomide Not-Taki ng Vitamin D 1 tablet Orally Once a day Active Glimepiride 2 MG 1 tablet with breakfast or the first main meal of the day Orally Once a day Active Zolpidem Tartrate 10 MG 1 tablet at bedtime as needed Orally Once a day PRN Active Immunizations Vaccine Route Administration Date Status Comme nts Influenza Unknown 12/04/2021 Administered Influenza Unknown 11/11/2023 Administered COVID-19 Pfizer BioNTech Vaccine Unknown 11/09/2020 [...] Problem Acquired hammer toe of right foot (11463550277612 05) Other hammer toe(s) (acquired), right foot (M20.41) Active confirmed Problem Type 2 diabetes mellitus with peripheral angiopathy (661653178) Type 2 diabetes mellitus with diabetic peripheral angiopathy without gangrene (E11.51) Active confirmed Problem Acquired hammer toe of left foot (47676642217463 03) Other hammer toe(s) (acquired), left foot (M20.42) Active confirmed Vital Signs Blood pressure diastolic 60 mm Hg 08/20/2024 Height 5ft2.5in in 08/20/2024 Blood pressure systolic 126 mm Hg 08/20/2024 Weight 163 lbs 08/20/2024 BMI 29.33 kg/m2 08/20/2024 Procedures Procedure Date Ordered Date Performed Result Body Sit e 09533-AKJESJT NAIL, 6 OR MORE 09/23/2023 N/A 58682-NKDR SKIN LESIONS, OVER 4 09/23/2023 N/A 82245-YFWVYYK NAIL, 6 OR MORE 11/25/2023 N/A 53395-WCUX SKIN LESIONS, OVER 4 11/25/2023 N/A 25264-XCVETSZ NAIL, 6 OR MORE 01/30/2024 N/A 90503-QZHW SKIN LESIONS, OVER 4 01/30/2024 N/A 97312-HWTEIFN NAIL, 6 OR MORE 04/02/2024 N/A 97151-FBGH SKIN LESIONS, OVER 4 04/02/2024 N/A 90349-WIPBDIG NAIL, 6 OR MORE 06/11/2024 N/A 64212-LOTO SKIN LESIONS, OVER 4 06/11/2024 N/A 47148-OVPKWQY NAIL, 6 OR MORE 08/20/2024 N/A 82702-NWQR SKIN LESIONS, OVER 4 08/20/2024 N/A Encounters Encounter Location Date Provider Diagnosis [address] [address] 09/23/2023 Sergiomalachi Malik Type 2 diabetes mellitus with diabetic peripheral angiopathy without gangrene E11.51 ; Tinea unguium B35.1 ; Pain in right toe(s) M79.674 and Pain in left toe(s) M79.[address] [address] 11/25/2023 Sergiomalachi Malik Type 2 diabetes mellitus with diabetic peripheral angiopathy without gangrene E11.51 ; Tinea unguium B35.1 ; Pain in right toe(s) M79.674 and Pain in left toe(s) M79.[address] [address] 01/30/2024 Sergiomalachi Malik Type 2 diabetes mellitus with diabetic peripheral angiopathy without gangrene E11.51 ; Tinea unguium B35.1 ; Pain in right toe(s) M79.674 and Pain in left toe(s) M79.[address] [address] 04/02/2024 Sergio Malik Type 2 diabetes mellitus with diabetic peripheral angiopathy without gangrene E11.51 ; Tinea unguium B35.1 ; Pain in right toe(s) M79.674 ; Pain in left toe(s) M79.675 ; Other hammer toe(s) (acquired), right foot M20.41 and Other hammer toe(s) (acquired), left foot M20.[address] [address] 06/11/2024 Sergio Malik Type 2 diabetes mellitus with diabetic peripheral angiopathy without gangrene E11.51 ; Tinea unguium B35.1 ; Pain in right toe(s) M79.674 and Pain in left toe(s) M79.[address] [address] 08/20/2024 Sergio Malik Type 2 diabetes mellitus with diabetic peripheral angiopathy without gangrene E11.51 ; Tinea unguium B35.1 ; Pain in right toe(s) M79.674 and Pain in left toe(s) M79.[address] [address] 11/25/2023 Sergio Malik Assessments Encounter Date Diagnosis [...] E11.51) 06/11/2024 Tinea unguium (ICD-10 - B35.1) 08/20/2024 Type 2 diabetes mellitus with diabetic peripheral angiopathy without gangrene (ICD-10 - E11.51) 08/20/2024 Tinea unguium (ICD-10 - B35.1) 08/20/2024 Pain in right toe(s) (ICD-10 - M79.674) [...] Pain in left toe(s) (ICD-10 - M79.675) 08/20/2024 Pain in left toe(s) (ICD-10 - M79.675) 04/02/2024 Other hammer toe(s) (acquired), right foot (ICD-10 - M20.41) Patient Educated with: DIABETIC FOOT CARE INSTRUCTIONS.p df (DIABETIC FOOT CARE INSTRUCTIONS.p df) 04/02/2024 Other hammer toe(s) (acquired), left foot (ICD-10 - M20.42) 09/23/2023 Other 11/25/2023 Other 01/30/2024 Other 04/02/2024 Other Plan Of Treatment Pending Test Test Name Order Date 90288-OUHVNXZ NAIL, 6 OR MORE 12/10/2019 14727-XUMPJWV NAIL, 6 OR MORE 02/29/2020 54011-UCHPAYF NAIL, 6 OR MORE 05/30/2020 87706-UZPWMSP NAIL, 6 OR MORE 08/29/2020 63279-KNUPXNF NAIL, 6 OR MORE 11/28/2020 29283-DBTYIIU NAIL, 6 OR MORE 03/06/2021 32024-NZGWAWK NAIL, 6 OR MORE 06/08/2021 12389-YWPMRGO NAIL, 6 OR MORE 09/11/2021 10087-XKHIBNO NAIL, 6 OR MORE 12/11/2021 91201-OQDTQQE NAIL, 6 OR MORE 02/15/2022 88041-YSCMCSA NAIL, 6 OR MORE 05/28/2022 81931-NTIABSC NAIL, 6 OR MORE 08/16/2022 18840-IUGDBNY NAIL, 6 OR MORE 11/05/2022 29816-HPTXKAT NAIL, 6 OR MORE 01/07/2023 14788-PCNNJBG NAIL, 6 OR MORE 03/11/2023 01111-GAITMGU NAIL, 6 OR MORE 05/13/2023 96828-TXMTPKD NAIL, 6 OR MORE 07/15/2023 09309-JYVLTVL NAIL, 6 OR MORE 09/23/2023 44339-PJGEDTR NAIL, 6 OR MORE 11/25/2023 96142-FIDDRYO NAIL, 6 OR MORE 01/30/2024 09925-UCHPEEI NAIL, 6 OR MORE 04/02/2024 50168-SOTOKKM NAIL, 6 OR MORE 06/11/2024 16689-SZADPZV NAIL, 6 OR MORE 08/20/2024 74200-EJHO SKIN LESIONS, OVER 4 08/21/19 25 52923-MOEU SKIN LESIONS, OVER 4 06/12/19 25 38914-IWKL SKIN LESIONS, OVER 4 04/02/19 25 63179-IHZJ SKIN LESIONS, OVER 4 01/30/20 24 82555-GVNO SKIN LESIONS, OVER 4 11/25/19 24 94930-PDAC SKIN LESIONS, OVER 4 09/23/19 24 74555-RQDQ SKIN LESIONS, OVER 4 07/15/19 24 01176-VOPK SKIN LESIONS, OVER 4 05/13/19 24 24548-VCUZ SKIN LESIONS, OVER 4 03/11/19 24 83868-WVLU SKIN LESIONS, OVER 4 01/08/20 23 07343-GIHA SKIN LESIONS, OVER 4 11/06/19 23 01607-RPRC SKIN LESIONS, OVER 4 08/17/19 14456-AFVI SKIN LESIONS, OVER 4 05/29/19 23 03968-MFHU SKIN LESIONS, OVER 4 02/15/19 24654-OWEO SKIN LESIONS, OVER 4 12/12/19 43545-IQWI SKIN LESIONS, OVER 4 09/12/19 18519-FEKG SKIN LESIONS, OVER 4 06/09/19 21999-MHJL SKIN LESIONS, OVER 4 03/06/19 94424-XWGN SKIN LESIONS, OVER 4 11/29/19 21 10281-ATKV SKIN LESIONS, OVER 4 08/30/19 21 32741-UZWT SKIN LESIONS, OVER 4 05/31/19 96757-IZJN SKIN LESIONS, OVER 4 02/28/19 62963-TLMG SKIN LESIONS, OVER 4 12/10/19 Next Appt Details Provider Name:Sergio Malik , 10/29/2024 08:45:00 AM, [address] [place] [address], [address], Provider Name:Sergio Falguni Malik , 01/11/2025 08:45:00 AM, [address] [place] [address], [phone], Insurance Providers Payer Name Payer Address Payer Phone Subscriber Number Group Number Insured Name Patient Relationship to Insured Coverage Start Date Coverage End Date Blue Benefits [address] [address] [place] [address] [id number] Joanna Tse Self - patient is the insured Medical (General) History Medical History History ICD Code Rheumatoid Arthritis Cancer - Thyroid High blood pressure Rheumatic fever Chicken pox Bone implants/screws CAD type II diabetes Surgical History Surgery Date(Month/Year) Thyroid Surgery 04/26,11/09/21 Broken wrist 05/25 bunion Surgery 2008 1984,1986 Right quad rupture repair 07/23/23 hysterectomy 06/09/2023
--- OUTSIDE RECORDS SUMMARY | 2024-09-17 07:18 | XMS_ITS | Referral Summary ---
Author Organization [facility] Address [address] [place] [address] Care Team Providers Care Apprentice Painter Hand Name Role Phone ValenteBarbara Katelynn Primary Care Provider [phone] Allergies Active Allergy Reactions Criticality Noted Date [...] in February. 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 Problems [...] Not on file Procedures * Due to [place] state law, this organization might not be [...] W/HPV, CONVERSION Routine 06/17/2014 10:55 AM EDT DEXA BONE DENSITY AXIAL Routine 06/16/2014 1:02 PM EDT HEPATITIS C ANTIBODY W/REFLEX TO HCV RNA, QUANTITATIVE PCR Routine 03/03/2014 2:31 PM EST from Last 3 Months or Most Recently Relevant to Health Maintenance Results * Due to [place] law, this organization might not be sharing [...] Res ult [facility] [address] [place] [address], [place] * (ABNORMAL) Basic Metabolic Panel, Outside Lab (08/30/2019) Potassium 4.9 Creatinine 1.45(H) mg/dL eGFR Non- 37(L) Blood Structure of peripheral vein / Unknown 08/30/2019 us Unknown Provider LAB BLOOD ORDERABLES Final R esult * (ABNORMAL) Hemoglobin A1c (05/28/2017 3:55 PM EDT) Hemoglobin A1C 7.6(H) <5.7 % of total Hgb 05/28/2017 10:49 PM EDT [facility] Comment: For someone without known diabetes, a [...] (MG/DL) 171 (calc) 05/28/2017 10:49 PM EDT [facility] eAG (MMOL/L) 9.5 (calc) 05/28/2017 10:49 PM EDT [facility] Blood specimen (specimen) Structure of peripheral vein / Unknown Venipuncture / Unknown 05/28/2017 3:55 PM EDT 05/28/2017 4:30 PM EDT Narrative [facility] 05/28/2017 10:49 PM EDT [facility] Received Date:[id number] Jose Manuel Bell MD LAB BLOOD ORDERABLES Final Re sult [facility] [address] [facility] [address], [place] [address], [place] [phone] [facility] [address] [facility] [address], [place] [address], [place] [phone] * DIABETES EYE EXAM (07/31/2016 9:16 AM EDT) Eye Exam [id number] [facility] MANUAL RESULTS 07/31/2016 9:16 AM EDT Toby Napier MD HEALTH MAINTENANCE Final Resul t Performing Organization Address City/[facility]/ZIP Co de Phone Number [facility] MANUAL RESULTS * MAMMOGRAPHY (05/15/2016 12:00 AM EDT) Mammogram Benign/ there are scattered areas of fibroglandular density . No significant change from prior study 2 OUTSIDE LABORATORY Anatomical Region Laterality Modality Other 05/15/2016 us Historical Conversion Provider HEALTH MAINTENANC E Final Result * Pap w/HPV (06/17/2014 10:55 AM EDT) Path Procedure TPGAS ([id number]) 1 HPVHR([id number]) 1 Edited by: [id number] - 5 JOI [id number] - 1324 BW-SCRPT6 [facility] Specimen Labeled As: 1 CERVICAL/ENDOCERVI MAKAYLA CYTO MATERIAL - Edited by: [id number] - 1054 VALENTE [facility] Additional Test Information Specimens were tested for high risk HPV using the FDA approved Digene Hybrid Capture II kit, in the Diagnostic Molecular Oncology Lab at [facility]. This test can detect HPV high risk [...] abnormality. We endorse the recommendations of the [place] Society for Colposcopy and Cervical Pathology for [...] high complexity clinical laboratory testing. Edited by: [id number] - 1324 BW-SCRPT6 [facility] Diagnosis ThinPrep Pap Test Adequacy: Satisfactory for evaluation Interpretation: Negative for Intraepithelial Lesion or Malignancy Remarks/Recommenda tions: This is the result of a morphological screening test with an inherent possibility of a false negative interpretation. This Pap test was examined in accordance with the [facility] written policy, which incorporates all CLIA mandates. Screening guidelines can be found in Am J Clin Pathol 2012;137:516-542. We endorse the practice guidelines developed by ASCCP and published in the Journal Lower Genital Tract Disease 17(5):S1-S27 (2013). This Pap test was examined by the ThinPrep Imaging System, [employer], [place], [place]. - High risk HPV DNA subtypes: NEGATIVE Edited by: [id number] - 1324 BW-SCRPT6 [id number] - 1142 [place] [facility] Gynecologic Clinical Data Specimen source:, THINPREP (CERVICAL AND ENDOCERVICAL) [facility] Gynecologic Clinical Data Gynecologic findings:, POST MENOPAUSAL [facility] Pathology Codes Client Order Code:, TPHGS3 [facility] Pathology Codes Bill Type:, 3RD [employer] [facility] Completed Report [id number] HPV, HIGH RISK TYPES 1 [facility] Marker 1 TOR G[facility]ES [facility] Marker 2 MDNEG,MD NEGATIVE [facility] Marker 3 NILM,NILM [facility] Marker 4 RIM,RECEIVED IN MOLECULAR [facility] Marker 5 CRISTY GHOSH [facility] Cc Results To COMPA Bishop GLOBAL CLIMATE CHANGE ANALYST [phone] [facility] [id number] [facility] Signature REPORT SIGNED: TOR LAURA 06/29/14 [facility] Sign Out Audit TOR LAURA [id number] FINAL NEW DOEMELANIEK [id number] [facility] Cytology / Unknown 5 10:55 AM EDT 06/20/2014 10:55 AM EDT us Juliet Napier MD LAB HISTORICAL RESULT S Final Result [facility] [address] [place] [address], * DEXA Bone Density (06/16/2014 1:02 PM EDT) Anatomical Region Laterality Modality Wrist, Hip, L-spine Radiographic Imaging 06/16/2014 12:3 0 PM EDT Narrative 06/16/2014 1:23 PM EDT EXAM: BONE MINERAL DENSITY INDICATION: 53F with HYPERPARATHYROIDISM COMPARISON: No prior DXA study is available for comparison PROCEDURE: The bone mineral density (BMD) of the spine, left distal radius and right hip was determined using an external X-ray source Hologic. Imaging performed is for RAMAKRISHNA placement. FINDINGS: L1-L2,L4: BMD 1.005gm/cm2 T-Score -0.3 Z-score: 0.8 Femoral neck: BMD 0.727gm/cm2 T-Score -1.1 Z-score -0.1 Total hip: BMD: 0.811gm/cm2 T-Score: -1.1 Z-score: -0.4 Trabecular forearm: BMD 0.408gm/cm2 T-Score -0.6 Z-score: 0.1 Cortical forearm: BMD 0.633gm/cm2 T-Score -1.0 Z-score -0.1 The World Health Organization (WHO) defines osteoporosis (as studied in post-menopausal women) as a T value of (-)2.5 or less at any site. Osteopenia is defined by a T value between (-)1.0 and (-)2.4. In general, it is recommended that patients receive approximately 1000 mg of calcium daily, either from dairy products or supplements (including multiple vitamin). Patients should consider supplementing with vitamin D. Vitamin D recommendations should be discussed with Health Care Provider and measurement of vitamin D levels should be considered. Careful weight-bearing exercise is also useful in maintaining bone mass and to help protect against falls. CONCLUSION: This patient has osteopenia. COMMUNICATION: per this report Procedure Note Jamel Zeng - 10/09/2016 EXAM: BONE MINERAL DENSITY INDICATION: 53F with HYPERPARATHYROIDISM COMPARISON: No prior DXA study is available for comparison PROCEDURE: The bone mineral density (BMD) of the spine, left distal radius and right hip was determined using an external X-ray source Hologic. Imaging performed is for RAMAKRISHNA placement. FINDINGS: L1-L2,L4: BMD 1.005gm/cm2 T-Score -0.3 Z-score: 0.8 Femoral neck: BMD 0.727gm/cm2 T-Score -1.1 Z-score -0.1 Total hip: BMD: 0.811gm/cm2 T-Score: -1.1 Z-score: -0.4 Trabecular forearm: BMD 0.408gm/cm2 T-Score -0.6 Z-score: 0.1 Cortical forearm: BMD 0.633gm/cm2 T-Score -1.0 Z-score -0.1 The World Health Organization (WHO) defines osteoporosis (as studied in post-menopausal women) as a T value of (-)2.5 or less at any site. Osteopenia is defined by a T value between (-)1.0 and (-)2.4. In general, it is recommended that patients receive approximately 1000 mg of calcium daily, either from dairy products or supplements (including multiple vitamin). Patients should consider supplementing with vitamin D. Vitamin D recommendations should be discussed with Health Care Provider and measurement of vitamin D levels should be considered. Careful weight-bearing exercise is also useful in maintaining bone mass and to help protect against falls. CONCLUSION: This patient has osteopenia. COMMUNICATION: per this report Jose Manuel Bell MD IMG DXA PROCEDURES Final Resu lt * Hepatitis C Antibody w/Reflex to HCV RNA, Quantitative PCR (03/03/2014 2:31 PM EST) Hepatitis C Antibody NON-REACTI VE NON-REACT CRISTINA [facility] Signal To Cut-Off 0.06 <1.00 [facility] 03/03/2014 2:31 PM EST 03/03/2014 3:50 PM EST Jessi Garcia LAB BLOOD ORDERABLES Final Resul t ENEIDA MCGARRY from Last 3 Months or Most Recently Relevant to Health Maintenance Insurance [employer] [place] [address] Advance Directives Documents on File Type Date Recorded Patient Pyrotechnics Press Tender Radhika johnson Advance Directive 09/12/2014 12:00 AM padmini Loo dical Dec Making (Adv.Dir) Care Teams Apprentice Painter Hand Relationship Specialty Start Date End Date Barbara Victor [address] [place] [address] [place] [address] PCP - General Internal Medicine 06/24/17
[2024-09-17 08:43] LABS: Albumin Level 4.3 g/dL (3.5-5.0); Calcium 9.2 mg/dL (8.4-10.2); Estimated Glomerular Filt Rate 34
[2024-09-17 08:45] LABS: Parathyroid Hormone Intact 39.8 pg/mL (8.7-77.1)
[2024-09-17 08:55] LABS: Free T4 (Free Thyroxine) 1.46 ng/dL (0.71-1.85); Thyroid Stimulating Hormone 0.02 uIU/mL (0.32-4.0)
[2024-09-17 09:43] LABS: Creatinine, mg/dL 59.93
[2024-09-17 13:32] LABS: Total Volume 24 Hour Urine 1450 mL
[2024-09-20 15:38] LABS: Calcium/Creatinine Ratio 63 mg/g creat (30-275); Creatinine 24Hr Urine 0.91 g/24 h (0.50-2.15)
[2024-09-20 20:48] LABS: Collagen Type I C-Telopeptide 347 pg/mL (see note)
[2024-09-22 07:28] LABS: Calcium, Ionized 5.1 mg/dL (4.7-5.5)
[2024-09-22 18:59] LABS: Thyroglobulin <0.1 ng/mL; Thyroglobulin Antibodies <1 IU/mL (< or = 1)
[2024-09-23 21:48] LABS: Prot Elec - Albumin 4.4 g/dL (3.8-4.8); Prot Elec - Alpha1 0.3 g/dL (0.2-0.3); Prot Elec - Alpha2 0.7 g/dL (0.5-0.9); Prot Elec - Beta 1 0.4 g/dL (0.4-0.6); Prot Elec - Beta 2 0.3 g/dL (0.2-0.5); Prot Elec - Gamma 0.9 g/dL (0.8-1.7); Prot Elec - Total Protein 7.0 g/dL (6.1-8.1)
== END 2024-09-17 07:16 | disposition home or self-care (01) ==
LOC: HO.LAB 07:15
PROVIDERS: Absent Provider Student in an Organized Health Care Education/Training Program; PCP Internal Medicine; Visit Provider Internal Medicine
DX: M85.80 Other specified disorders of bone density and structure, unspecified site (principal); M85.852 Other specified disorders of bone density and structure, left thigh; E89.0 Postprocedural hypothyroidism; Z85.850 Personal history of malignant neoplasm of thyroid; Z86.39 Personal history of other endocrine, nutritional and metabolic disease
CPT/HCPCS: 36415; 82040; 82306; 82310; 82330; 82340; 82523; 82565; 82570; 82784; 83970; 84075; 84100; 84165; 84432; 84439; 84443; 86334; 86800

== ENCOUNTER 2024-09-22 15:56 | Outpatient (REF) | payer OTHER, SELFPAY ==
--- NOTE | ~2024-09-22 | US_ITS ---
EXAMINATION: US HEAD NECK SOFT TISSUE HISTORY: Z85.850 - Personal history of malignant neoplasm of thyroid COMPARISON: Comparison is made with the prior examination dated 12/10/2023. FINDINGS: Sonographic examination of the thyroid bed was performed. The thyroid is surgically absent. An ovoid normal appearing right level III node is identified measuring 9 x 8 x 8 mm. There is no lymphadenopathy. US/US soft tiss head and/or neck IMPRESSION: Status post thyroidectomy. No evidence of cervical lymphadenopathy. Electronically signed by: Miah Jerez MD 09/23/2024 07:44 AM EDT
--- OUTSIDE RECORDS SUMMARY | 2024-09-22 15:58 | XMS_ITS | Clinical Summary ---
Author Organization [facility] Address [address] [id number] Care Team Providers Care Paramedic Name Role Phone Anderson Sanchez Primary Care Provider [phone] Allergies No known active allergies Medications Diclofenac-Mis [...] Pap Smear Discontinued Zoster (Zostavax) Discontinued Insurance [facility] FEE FOR SERVICE PPO * Guarantor: JAV[employer] Account Type Relation to Patient Date of Phone Billing Address [employer] [address] [place] [address] EYEMED ACCESS Care Teams Paramedic Relationship Specialty Start Date End Date Anderson Sanchez [address] [address] PCP - General Rheumatology 06/10/12
--- OUTSIDE RECORDS SUMMARY | 2024-09-22 15:58 | XMS_ITS | Patient Health Record ---
[facility] Address [address] [place] [address] Care Team Providers Care Auto Care Center Manager Name Role Phone Barbara Victor Primary Care Provider Sergio Montelongo Unavailable [phone] Allergies Allergen (clinical drug ingredient) Drug/Non Drug [...] Problem Acquired hammer toe of right foot (40899625664421 05) Other hammer toe(s) (acquired), right foot (M20.41) Active confirmed Problem Type 2 diabetes mellitus with peripheral angiopathy (093160708) Type 2 diabetes mellitus with diabetic peripheral angiopathy without gangrene (E11.51) Active confirmed Problem Acquired hammer toe of left foot (85245623478455 03) Other hammer toe(s) (acquired), left foot (M20.42) Active confirmed Vital Signs Blood pressure diastolic 60 mm Hg 08/20/2024 Height 5ft2.5in in 08/20/2024 Blood pressure systolic 126 mm Hg 08/20/2024 Weight 163 lbs 08/20/2024 BMI 29.33 kg/m2 08/20/2024 Procedures Procedure Date Ordered Date Performed Result Body Sit e 23855-NADJWOP NAIL, 6 OR MORE 09/23/2023 N/A 21062-UAVE SKIN LESIONS, OVER 4 09/23/2023 N/A 79457-GZCQLJN NAIL, 6 OR MORE 11/25/2023 N/A 99806-GQRE SKIN LESIONS, OVER 4 11/25/2023 N/A 54136-NJAFKVK NAIL, 6 OR MORE 01/30/2024 N/A 64094-SWNZ SKIN LESIONS, OVER 4 01/30/2024 N/A 29901-GMJVBNN NAIL, 6 OR MORE 04/02/2024 N/A 88706-QDTP SKIN LESIONS, OVER 4 04/02/2024 N/A 88017-ORLRPDZ NAIL, 6 OR MORE 06/11/2024 N/A 83239-VLYR SKIN LESIONS, OVER 4 06/11/2024 N/A 66764-ZUZDHSY NAIL, 6 OR MORE 08/20/2024 N/A 53323-VACX SKIN LESIONS, OVER 4 08/20/2024 N/A Encounters Encounter Location Date Provider Diagnosis [address] [address] 09/23/2023 Sergiomalachi Malik Type 2 diabetes mellitus with diabetic peripheral angiopathy without gangrene E11.51 ; Tinea unguium B35.1 ; Pain in right toe(s) M79.674 and Pain in left toe(s) M79.[address] [address] 11/25/2023 Sergiomalachi Malik Type 2 diabetes mellitus with diabetic peripheral angiopathy without gangrene E11.51 ; Tinea unguium B35.1 ; Pain in right toe(s) M79.674 and Pain in left toe(s) M79.[address] [address] 01/30/2024 Sergiomalachi Malik Type 2 diabetes mellitus with diabetic peripheral angiopathy without gangrene E11.51 ; Tinea unguium B35.1 ; Pain in right toe(s) M79.674 and Pain in left toe(s) M79.[address] [address] 04/02/2024 Sergio Malik Type 2 diabetes mellitus with diabetic peripheral angiopathy without gangrene E11.51 ; Tinea unguium B35.1 ; Pain in right toe(s) M79.674 ; Pain in left toe(s) M79.675 ; Other hammer toe(s) (acquired), right foot M20.41 and Other hammer toe(s) (acquired), left foot M20.[address] [address] 06/11/2024 Sergio Malik Type 2 diabetes mellitus with diabetic peripheral angiopathy without gangrene E11.51 ; Tinea unguium B35.1 ; Pain in right toe(s) M79.674 and Pain in left toe(s) M79.[address] [address] 08/20/2024 Sergio Malik Type 2 diabetes mellitus with diabetic peripheral angiopathy without gangrene E11.51 ; Tinea unguium B35.1 ; Pain in right toe(s) M79.674 and Pain in left toe(s) M79.[address] [address] 11/25/2023 Sergio Malik Assessments Encounter Date Diagnosis [...] Treatment Pending Test Test Name Order Date 24411-UDHRCAG NAIL, 6 OR MORE 12/10/2019 61096-IBLOJHX NAIL, 6 OR MORE 02/29/2020 24728-RSJSLLQ NAIL, 6 OR MORE 05/30/2020 13715-VJEKYFR NAIL, 6 OR MORE 08/29/2020 92133-WLCDRIC NAIL, 6 OR MORE 11/28/2020 98421-AIESVTJ NAIL, 6 OR MORE 03/06/2021 71374-JCENKRR NAIL, 6 OR MORE 06/08/2021 33154-QMJSIFX NAIL, 6 OR MORE 09/11/2021 10996-QYKDNJV NAIL, 6 OR MORE 12/11/2021 56476-WEJKGUT NAIL, 6 OR MORE 02/15/2022 28494-WLHAJTD NAIL, 6 OR MORE 05/28/2022 15592-KVEKUBY NAIL, 6 OR MORE 08/16/2022 71259-JJFDGDX NAIL, 6 OR MORE 11/05/2022 32482-UBCEWRM NAIL, 6 OR MORE 01/07/2023 12142-AVHJCJV NAIL, 6 OR MORE 03/11/2023 57467-QRHTZAU NAIL, 6 OR MORE 05/13/2023 21175-PBHEMOQ NAIL, 6 OR MORE 07/15/2023 65901-QLDQXTH NAIL, 6 OR MORE 09/23/2023 71463-OTXKRAL NAIL, 6 OR MORE 11/25/2023 22272-TFEFACA NAIL, 6 OR MORE 01/30/2024 27785-HWDHSDW NAIL, 6 OR MORE 04/02/2024 51101-DEQTAHD NAIL, 6 OR MORE 06/11/2024 08764-MKDKOAH NAIL, 6 OR MORE 08/20/2024 43009-LIPU SKIN LESIONS, OVER 4 08/21/19 25 68379-EFZA SKIN LESIONS, OVER 4 06/12/19 25 79756-RMAU SKIN LESIONS, OVER 4 04/02/19 25 30921-WWNQ SKIN LESIONS, OVER 4 01/30/20 24 55590-FETF SKIN LESIONS, OVER 4 11/25/19 24 57713-CKYG SKIN LESIONS, OVER 4 09/23/19 24 36445-SHZF SKIN LESIONS, OVER 4 07/15/19 24 54131-HASG SKIN LESIONS, OVER 4 05/13/19 24 35609-LMHY SKIN LESIONS, OVER 4 03/11/19 24 49099-ISJQ SKIN LESIONS, OVER 4 01/08/20 23 95961-DEEY SKIN LESIONS, OVER 4 11/06/19 23 99376-QVOA SKIN LESIONS, OVER 4 08/17/19 42758-ESGE SKIN LESIONS, OVER 4 05/29/19 23 27351-ZATD SKIN LESIONS, OVER 4 02/15/19 60270-VEEU SKIN LESIONS, OVER 4 12/12/19 66441-FWMO SKIN LESIONS, OVER 4 09/12/19 75660-JNNN SKIN LESIONS, OVER 4 06/09/19 69890-FDHO SKIN LESIONS, OVER 4 03/06/19 11034-NHNN SKIN LESIONS, OVER 4 11/29/19 21 31803-NCUO SKIN LESIONS, OVER 4 08/30/19 21 54783-EUUM SKIN LESIONS, OVER 4 05/31/19 29858-GDLM SKIN LESIONS, OVER 4 02/28/19 41695-BEXT SKIN LESIONS, OVER 4 12/10/19 Next Appt Details Provider Name:Sergio Malik , 10/29/2024 08:45:00 AM, [address] [place] [address], [phone], Provider Name:Sergio Falguni Malik , 01/11/2025 08:45:00 AM, [address] [place] [address], [phone], Insurance Providers Payer Name Payer Address Payer Phone Subscriber Number Group Number Insured Name Patient Relationship to Insured Coverage Start Date Coverage End Date [employer] Benefits [address] [address] [place] [address] [id number] Joanna Tse Self - patient is the insured Medical (General) History Medical History History ICD Code Rheumatoid Arthritis Cancer - Thyroid High blood pressure Rheumatic fever Chicken pox Bone implants/screws CAD type II diabetes Surgical History Surgery Date(Month/Year) Thyroid Surgery 04/26,11/09/21 Broken wrist 05/25 bunion Surgery 2008 1984,1986 Right quad rupture repair 07/23/23 hysterectomy 06/09/2023
--- OUTSIDE RECORDS SUMMARY | 2024-09-22 15:59 | XMS_ITS | Clinical Summary ---
Author Organization [facility] Address [address] [place] [address] Care Team Providers Care Oracle Application Architect Name Role Phone ValenteBarbara Katelynn Primary Care Provider [phone] Allergies Active Allergy Reactions Criticality Noted Date [...] in February. 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 Problems [...] Tdap) 02/10/2023 02/10/2013, 02/20/2012 COVID-19 Vaccine ( - season) 2023 09/18/2021, 11/09/2020, 02/21/2020, Additional history exists Alcohol/Substance Use Screening 02/11/2024 Depression Screening and Follow-Up 02/11/2024 Health Care Proxy Review 02/11/2024 Social Drivers of Health Annual Screening 02/11/2024 Influenza Vaccine (#1) 2024 2, 11/23/2020, 11/17/2019, Additional history exists RSV Vaccine (60+ years old and patients) (1 - 1-dose 75+ series) 08/13/2034 Hepatitis C Screening Completed 03/03/2014 Osteoporosis Screening Completed 06/16/2014 Hepatitis B Vaccines Aged Out No long er eligible based on patient's age to complete this topic Procedures * Due to [place] O'ol Blue law, this organization might not be sharing [...] to Health Maintenance Results * Due to [place] O'ol Blue law, this organization might not be sharing negative HIV tests. * (ABNORMAL) Microalbumin/Creatinine Urine Ratio, Random (01/24/2020 9:14 AM EST) Microalbumin, Urine 5.0 mg/dL 01/24/2020 11:04 AM EST [facility] Creatinine, Urine 23 15 - 278 mg/dL 01/24/2020 11:04 AM EST [facility] Microalb/Creat Ratio, Random Urine 217.4(H) <30.0 mcg/mgCr 01/24/2020 11:04 AM EST [facility] Comment: Microalbumin Reference Range: Normal <30 mcg/mg Creatinine Microalbuminuria 30-300 mcg/mg Creatinine Clinical Albuminuria >300 mcg/mg Creatinine Reference: ADA Guideline. Diabetes Care. 2004;27 (suppl 1) Urine Voided urine specimen / Unknown Non-Blood Collection / Unknown 01/24/2020 9:14 AM EST 01/24/2020 10:30 AM EST us Meaghan Ziegler MD LAB URINE ORDERABLES Final Res ult [facility] [address] [place] [address], * (ABNORMAL) Basic Metabolic Panel, Outside Lab (08/30/2019) Potassium 4.9 Creatinine 1.45(H) mg/dL eGFR Non- 37(L) Blood Structure of peripheral vein / Unknown 08/30/2019 us Unknown Provider LAB BLOOD ORDERABLES Final R esult * (ABNORMAL) Hemoglobin A1c (05/28/2017 3:55 PM EDT) Hemoglobin A1C 7.6(H) <5.7 % of total Hgb 05/28/2017 10:49 PM EDT [facility] Comment: For someone without known diabetes, a [...] (MG/DL) 171 (calc) 05/28/2017 10:49 PM EDT [facility] eAG (MMOL/L) 9.5 (calc) 05/28/2017 10:49 PM EDT [facility] Blood specimen (specimen) Structure of peripheral vein / Unknown Venipuncture / Unknown 05/28/2017 3:55 PM EDT 05/28/2017 4:30 PM EDT Narrative [facility] - 05/28/2017 10:49 PM EDT [facility] Received Date:[id number] Jose Manuel Bell MD LAB BLOOD ORDERABLES Final Re sult [facility] [address], [place] [address], [facility] [address], [place] [address], [place] [phone] * DIABETES EYE EXAM (07/31/2016 9:16 AM EDT) Eye Exam [id number] [facility] MANUAL RESULTS 07/31/2016 9:16 AM EDT us Benita Napier MD HEALTH MAINTENANCE Final Resul t Performing Organization Address City/[facility]/ZIP Co de Phone Number [facility] MANUAL RESULTS * MAMMOGRAPHY (05/15/2016 12:00 AM EDT) Mammogram Benign/ there are scattered areas of fibroglandular density . No significant change from prior study 2 OUTSIDE LABORATORY Anatomical Region Laterality Modality Other 05/15/2016 us Historical Conversion Provider HEALTH MAINTENANC E Final Result * Pap w/HPV (06/17/2014 10:55 AM EDT) Path Procedure TPGAS ([id number]) 1 HPVHR(700373) 1 Edited by: [id number] - [address] [address] [id number] - 1324 [facility] Specimen Labeled As: 1 CERVICAL/ENDOCERVI MAKAYLA CYTO MATERIAL - Edited by: [id number] - 1058 [address]1 [facility] Additional Test Information Specimens were tested for high risk HPV using the FDA approved Digene Hybrid Capture II kit, in the Diagnostic Molecular Oncology Lab at [facility]. This test can detect HPV high risk [...] abnormality. We endorse the recommendations of the [place] Society for Colposcopy and Cervical Pathology for [...] high complexity clinical laboratory testing. Edited by: [id number] - 1324 BW-SCRPT6 [facility] - [facility] Diagnosis ThinPrep Pap Test Adequacy: Satisfactory for evaluation Interpretation: Negative for Intraepithelial Lesion or Malignancy Remarks/Recommenda tions: This is the result of a morphological screening test with an inherent possibility of a false negative interpretation. This Pap test was examined in accordance with the [facility] Cytopathology Laboratory written policy, which incorporates all CLIA mandates. Screening guidelines can be found in Am J Clin Pathol 2012;137:516-542. We endorse the practice guidelines developed by ASCCP and published in the Journal Lower Genital Tract Disease 17(5):S1-S27 (2013). This Pap test was examined by the ThinPrep Imaging System, [employer], [place], [place]. - High risk HPV DNA subtypes: NEGATIVE Edited by: [id number] - 1324 -SCRPT6 [id number] - 9062 F[address] [facility] - [facility] Gynecologic Clinical Data Specimen source:, THINPREP (CERVICAL AND ENDOCERVICAL) [facility] Gynecologic Clinical Data Gynecologic findings:, POST MENOPAUSAL [facility] Pathology Codes Client Order Code:, TPHGS3 [facility] Pathology Codes Bill Type:, 3RD CONSTITUTION PARTY BILLING [facility] Completed Report [id number] HPV, HIGH RISK TYPES 1 [facility] - [facility] Marker 1 TOR GOMES [facility] PATHOLOG[facility] - [facility] Marker 2 SHLOMO, NEGATIVE [facility]ATOM[facility] PATHOLOGY - [facility] Marker 3 NILM,NILM [facility] - [facility] Marker 4 RIM,RECEIVED IN MOLECULAR [facility] - [facility] Marker 5 RCISTY GHOSH-ANDI [facility] - [facility] Cc Results To COMPA Bishop ASSOCIATE BROKER [id number] JOHNNY SIU [id number] [facility] Signature REPORT SIGNED: TOR LAURA 06/29/14 [facility] Sign Out Audit TOR LAURA [id number] [facility] [id number] [facility] Cytology / Unknown 10:55 AM EDT 06/20/2014 10:55 AM EDT us Juliet Napier MD LAB HISTORICAL RESULT S Final Result [facility] [address] [place] [id number], [place] * DEXA Bone Density (06/16/2014 1:02 PM [...] Hepatitis C Antibody NON-REACTI VE NON-REACT CRISTINA [facility] Signal To Cut-Off 0.06 <1.00 [facility] 03/03/2014 2:31 PM EST 03/03/2014 3:50 PM EST Jessi Garcia LAB BLOOD ORDERABLES Final Resul t ENEIDA MCGARRY from Last 3 Months or Most Recently Relevant to Health Maintenance [place] [address] BENEFIT ADMINISTRATORS Advance Directives Documents on File Type Date Recorded Patient Histologist Expl anation Advance Directive 09/12/2014 12:00 AM [facility] dical Dec Making (Adv.Dir) Care Teams Oracle Application Architect Relationship Specialty Start Date End Date Barbara Victor [address] [place] [address] dr Supa Cowart, [place] [address] PCP - General Internal Medicine 06/24/17
== END 2024-09-22 15:57 | disposition home or self-care (01) ==
LOC: HO.US 15:56
PROVIDERS: PCP Internal Medicine; Visit Provider Student in an Organized Health Care Education/Training Program
DX: Z85.850 Personal history of malignant neoplasm of thyroid (principal)
CPT/HCPCS: 76536

== ENCOUNTER → 2024-09-22 15:59 | Outpatient (BNV) | payer OTHER, SELFPAY | PROVIDERS: PCP Internal Medicine; Visit Provider Radiology Diagnostic Radiology | DX: Z85.850 Personal history of malignant neoplasm of thyroid (principal); Z90.09 Acquired absence of other part of head and neck | CPT/HCPCS: 76536 ==

== ENCOUNTER 2024-09-30 07:31 | Outpatient (AMB) | payer OTHER, SELFPAY ==
--- OUTSIDE RECORDS SUMMARY | 2024-09-30 07:34 | XMS_ITS | Clinical Summary ---
Author Organization [facility] Address [address] [place] [address] Care Team Providers Care Oil Tanker Captain Name Role Phone ValenteBarbara Katelynn Primary Care Provider [phone] Allergies Active Allergy Reactions Criticality Noted Date [...] in February. 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 * (ABNORMAL) Microalbumin/Creatinine Urine Ratio, Random (01/24/2020 9:14 AM EST) Microalbumin, Urine 5.0 mg/dL 01/24/2020 11:04 AM EST [facility] Creatinine, Urine 23 15 - 278 mg/dL 01/24/2020 11:04 AM EST [facility] Microalb/Creat Ratio, Random Urine 217.4(H) <30.0 mcg/mgCr 01/24/2020 11:04 AM EST [facility] Comment: Microalbumin Reference Range: Normal <30 mcg/mg Creatinine Microalbuminuria 30-300 mcg/mg Creatinine Clinical Albuminuria >300 mcg/mg Creatinine Reference: ADA Guideline. Diabetes Care. 2004;27 (suppl 1) Urine Voided urine specimen / Unknown Non-Blood Collection / Unknown 01/24/2020 9:14 AM EST 01/24/2020 10:30 AM EST us Meaghan Ziegler MD LAB URINE ORDERABLES Final Res ult [facility] [address] [place] [address], * (ABNORMAL) Basic Metabolic Panel, Outside Lab (08/30/2019) Potassium 4.9 Creatinine 1.45(H) mg/dL eGFR Non- 37(L) Blood Structure of peripheral vein / Unknown 08/30/2019 us Unknown Provider LAB BLOOD ORDERABLES Final R esult * (ABNORMAL) Hemoglobin A1c (05/28/2017 3:55 PM EDT) Hemoglobin A1C 7.6(H) <5.7 % of total Hgb 05/28/2017 10:49 PM EDT [facility] Comment: For someone without known diabetes, a [...] (MG/DL) 171 (calc) 05/28/2017 10:49 PM EDT [facility] eAG (MMOL/L) 9.5 (calc) 05/28/2017 10:49 PM EDT [facility] Blood specimen (specimen) Structure of peripheral vein / Unknown Venipuncture / Unknown 05/28/2017 3:55 PM EDT 05/28/2017 4:30 PM EDT Narrative [facility] 05/28/2017 10:49 PM EDT [facility] Received Date:[id number] Jose Manuel Bell MD LAB BLOOD ORDERABLES Final Re sult [facility] [address], [place] [address], [facility] [address], [place] [address], [place] [phone] * DIABETES EYE EXAM (07/31/2016 9:16 AM EDT) Eye Exam [id number] [facility] MANUAL RESULTS 07/31/2016 9:16 AM EDT us Benita Napier MD HEALTH MAINTENANCE Final Resul t Performing Organization Address City/[facility]/ZIP Co de Phone Number [facility] MANUAL RESULTS * MAMMOGRAPHY (05/15/2016 12:00 AM EDT) Mammogram Benign/ there are scattered areas of fibroglandular density . No significant change from prior study 2 OUTSIDE LABORATORY Anatomical Region Laterality Modality Other 05/15/2016 us Historical Conversion Provider HEALTH MAINTENANC E Final Result * Pap w/HPV (06/17/2014 10:55 AM EDT) Path Procedure TPGAS ([id number]) 1 HPVHR([id number]) 1 Edited by: [id number] - [address] [address] [id number] - 1324 [facility] - [facility] Specimen Labeled As: 1 CERVICAL/ENDOCERVI MAKAYLA CYTO MATERIAL - Edited by: [id number] - 1054 [address]ER1 [facility] - [facility] Additional Test Information Specimens were tested for high risk HPV using the FDA approved Digene Hybrid Capture II kit, in the Diagnostic Molecular Oncology Lab at [facility]. This test can detect HPV high risk [...] abnormality. We endorse the recommendations of the [place] Society for Colposcopy and Cervical Pathology for [...] high complexity clinical laboratory testing. Edited by: [id number] - 1324 BW-SCRPT6 [facility] - [facility] Diagnosis ThinPrep Pap Test Adequacy: Satisfactory for evaluation Interpretation: Negative for Intraepithelial Lesion or Malignancy Remarks/Recommenda tions: This is the result of a morphological screening test with an inherent possibility of a false negative interpretation. This Pap test was examined in accordance with the [facility] Cytopathology Laboratory written policy, which incorporates all CLIA mandates. Screening guidelines can be found in Am J Clin Pathol 2012;137:516-542. We endorse the practice guidelines developed by ASCCP and published in the Journal Lower Genital Tract Disease 17(5):S1-S27 (2013). This Pap test was examined by the ThinPrep Imaging System, [employer], [place], [place]. - High risk HPV DNA subtypes: NEGATIVE Edited by: [id number] - 1324 -SCRPT6 [id number] - 3432 [address] [facility] - [facility] Gynecologic Clinical Data Specimen source:, THINPREP (CERVICAL AND ENDOCERVICAL) [facility] Gynecologic Clinical Data Gynecologic findings:, POST MENOPAUSAL [facility] - [facility] Pathology Codes Client Order Code:, TPHGS3 [facility] Pathology Codes Bill Type:, 3RD DEMOCRAT BILLING [facility] Completed Report [id number] HPV, HIGH RISK TYPES 1 [facility] - [facility] Marker 1 TOR GOMES [facility] - [facility] Marker 2 SHLOMO, NEGATIVE [facility] - [facility] Marker 3 NILM,NILM [facility] - [facility] Marker 4 RIM,RECEIVED IN MOLECULAR [facility] - [facility] Marker 5 CRISTY GHOSH-ANDI [facility] - [facility] Cc Results To COMPA Bishop 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 [id number] JOHNNY SIU [id number] [facility] - [facility] Signature REPORT SIGNED: TOR LAURA 06/29/14 [facility] Sign Out Audit TOR LAURA [id number] [facility] [id number] 1142 [facility] Cytology / Unknown 10:55 AM EDT 06/20/2014 10:55 AM EDT us Juliet Napier MD LAB HISTORICAL RESULT S Final Result [facility] - [facility] [address] [place] [id number], [place] * DEXA Bone Density (06/16/2014 1:02 [...] Hepatitis C Antibody NON-REACTI VE NON-REACT CRISTINA [facility] Signal To Cut-Off 0.06 <1.00 [facility] 03/03/2014 2:31 PM EST 03/03/2014 3:50 PM EST Jessi Garcia LAB BLOOD ORDERABLES Final Resul t ENEIDA MCGARRY from Last 3 Months or Most Recently Relevant to Health Maintenance [place] [address] [place] [address] BENEFIT ADMINISTRATORS Advance Directives Documents on File Type Date Recorded Patient Tariff Supervisor Expl anation Advance Directive 09/12/2014 12:00 AM [facility] dical Dec Making (Adv.Dir) Care Teams Oil Tanker Captain Relationship Specialty Start Date End Date Barbara Victor [address] [place] [address] dr Supa Cowart, [place] [address] PCP - General Internal Medicine 06/24/17
--- OUTSIDE RECORDS SUMMARY | 2024-09-30 07:34 | XMS_ITS | Patient Health Record ---
Author Organization [facility] Address [address] [place] [address] Care Team Providers Care Kraft Digester Operator Name Role Phone Barbara Victor Primary Care Provider Sergio Montelongo Unavailable [phone] Allergies Allergen (clinical drug ingredient) Drug/Non Drug [...] Problem Acquired hammer toe of right foot (52232880394532 05) Other hammer toe(s) (acquired), right foot (M20.41) Active confirmed Problem Type 2 diabetes mellitus with peripheral angiopathy (910111381) Type 2 diabetes mellitus with diabetic peripheral angiopathy without gangrene (E11.51) Active confirmed Problem Acquired hammer toe of left foot (41019558042588 03) Other hammer toe(s) (acquired), left foot (M20.42) Active confirmed Vital Signs Blood pressure diastolic 60 mm Hg 08/20/2024 Height 5ft2.5in in 08/20/2024 Blood pressure systolic 126 mm Hg 08/20/2024 Weight 163 lbs 08/20/2024 BMI 29.33 kg/m2 08/20/2024 Procedures Procedure Date Ordered Date Performed Result Body Sit e 84057-MKBUCKF NAIL, 6 OR MORE 11/25/2023 N/A 22458-QIOJ SKIN LESIONS, OVER 4 11/25/2023 N/A 63833-XYGINES NAIL, 6 OR MORE 01/30/2024 N/A 51151-QBKP SKIN LESIONS, OVER 4 01/30/2024 N/A 93252-LEWONIC NAIL, 6 OR MORE 04/02/2024 N/A 82209-ZSUJ SKIN LESIONS, OVER 4 04/02/2024 N/A 00463-PIIQELA NAIL, 6 OR MORE 06/11/2024 N/A 65463-KISE SKIN LESIONS, OVER 4 06/11/2024 N/A 39852-CYNRTMA NAIL, 6 OR MORE 08/20/2024 N/A 24248-QYKJ SKIN LESIONS, OVER 4 08/20/2024 N/A Encounters Encounter Location Date Provider Diagnosis [address] [address] 11/25/2023 Sergio Malik Type 2 diabetes mellitus with diabetic peripheral angiopathy without gangrene E11.51 ; Tinea unguium B35.1 ; Pain in right toe(s) M79.674 and Pain in left toe(s) M79.[address] [address] 01/30/2024 Sergio Malik Type 2 diabetes mellitus with diabetic peripheral angiopathy without gangrene E11.51 ; Tinea unguium B35.1 ; Pain in right toe(s) M79.674 and Pain in left toe(s) M79.[address] [address] 04/02/2024 Sergio Helena Type 2 diabetes mellitus with diabetic peripheral angiopathy without gangrene E11.51 ; Tinea unguium B35.1 ; Pain in right toe(s) M79.674 ; Pain in left toe(s) M79.675 ; Other hammer toe(s) (acquired), right foot M20.41 and Other hammer toe(s) (acquired), left foot M20.[address] [address] 06/11/2024 Sergio Malik Type 2 diabetes mellitus with diabetic peripheral angiopathy without gangrene E11.51 ; Tinea unguium B35.1 ; Pain in right toe(s) M79.674 and Pain in left toe(s) M79.[address] [address] 08/20/2024 Sergio Malik Type 2 diabetes mellitus with diabetic peripheral angiopathy without gangrene E11.51 ; Tinea unguium B35.1 ; Pain in right toe(s) M79.674 and Pain in left toe(s) M79.[address] [address] 11/25/2023 Sergio Loounier Assessments Encounter Date Diagnosis (ICD Code) Assessment [...] toe(s) (acquired), left foot (ICD-10 - M20.42) 11/25/2023 Other 01/30/2024 Other 04/02/2024 Other Plan Of Treatment Pending Test Test Name Order Date 35916-PGWIESQ NAIL, 6 OR MORE 12/10/2019 53158-DBPAAKU NAIL, 6 OR MORE 02/29/2020 12119-EPCIEUO NAIL, 6 OR MORE 05/30/2020 84581-YUEKUMN NAIL, 6 OR MORE 08/29/2020 75872-CNAYXVO NAIL, 6 OR MORE 11/28/2020 74276-VFUMWBD NAIL, 6 OR MORE 03/06/2021 08511-XSISDBJ NAIL, 6 OR MORE 06/08/2021 13761-XIQIXLX NAIL, 6 OR MORE 09/11/2021 71267-MEHGWKS NAIL, 6 OR MORE 12/11/2021 20280-PISEDCV NAIL, 6 OR MORE 02/15/2022 67535-CLSCLZB NAIL, 6 OR MORE 05/28/2022 85500-ALXLWFZ NAIL, 6 OR MORE 08/16/2022 24201-JDBJHZP NAIL, 6 OR MORE 11/05/2022 25775-SRPKFNK NAIL, 6 OR MORE 01/07/2023 22980-OHQXVDX NAIL, 6 OR MORE 03/11/2023 90579-EMVELGD NAIL, 6 OR MORE 05/13/2023 44437-ICEYVBP NAIL, 6 OR MORE 07/15/2023 43820-WULSCJR NAIL, 6 OR MORE 09/23/2023 35058-OAGXUWZ NAIL, 6 OR MORE 11/25/2023 95240-CPDAZLE NAIL, 6 OR MORE 01/30/2024 77594-RDGRWFQ NAIL, 6 OR MORE 04/02/2024 01181-GNJDLLJ NAIL, 6 OR MORE 06/11/2024 69731-NPKTWOK NAIL, 6 OR MORE 08/20/2024 31896-ZMSH SKIN LESIONS, OVER 4 08/21/19 40526-PXYF SKIN LESIONS, OVER 4 06/12/19 53627-MCAD SKIN LESIONS, OVER 4 04/02/19 25 32882-MUCS SKIN LESIONS, OVER 4 01/30/20 24 82541-FNOY SKIN LESIONS, OVER 4 11/25/19 24 06263-AKPP SKIN LESIONS, OVER 4 09/23/19 24 05131-TWFA SKIN LESIONS, OVER 4 07/15/19 24 88813-QEXH SKIN LESIONS, OVER 4 05/13/19 24 45602-RHLO SKIN LESIONS, OVER 4 03/11/19 24 12449-WGEQ SKIN LESIONS, OVER 4 01/08/20 23 99222-DFHG SKIN LESIONS, OVER 4 11/06/19 23 58787-EVPS SKIN LESIONS, OVER 4 08/17/19 23 80785-EJSK SKIN LESIONS, OVER 4 05/29/19 23 46930-ACHC SKIN LESIONS, OVER 4 02/15/19 23 89781-EVPG SKIN LESIONS, OVER 4 12/12/19 17812-BHLN SKIN LESIONS, OVER 4 09/12/19 67765-ZZCV SKIN LESIONS, OVER 4 06/09/19 22 55763-OKLO SKIN LESIONS, OVER 4 03/06/19 22 64927-SFXA SKIN LESIONS, OVER 4 11/29/19 38770-GGSG SKIN LESIONS, OVER 4 08/30/19 45829-SGMZ SKIN LESIONS, OVER 4 04/20/20 21 68874-MKBS SKIN LESIONS, OVER 4 02/28/19 21 31799-KOBX SKIN LESIONS, OVER 4 12/10/19 20 Next Appt Details Provider Name:Sergio Malik , 10/29/2024 08:45:00 AM, [address] [place] [address], [address], Provider Name:Sergio Malik , 01/11/2025 08:45:00 AM, [address] [place] [address], [phone], Insurance Providers Payer Name Payer Address Payer Phone Subscriber Number Group Number Insured Name Patient Relationship to Insured Coverage Start Date Coverage End Date Blue Benefits [address] [address] [place] [address] [id number] Joanna Tse Self - patient is the insured Medical (General) History Medical History History ICD Code Rheumatoid Arthritis Cancer - Thyroid High blood pressure Rheumatic fever Chicken pox Bone implants/screws CAD type II diabetes Surgical History Surgery Date(Month/Year) Thyroid Surgery 04/26,11/09/21 Broken wrist 05/25 bunion Surgery 2008 1984,1986 Right quad rupture repair 07/23/23 hysterectomy 06/09/2023
--- OUTSIDE RECORDS SUMMARY | 2024-09-30 07:34 | XMS_ITS | Clinical Summary ---
Author Organization [facility] Address [address] [place] [address] Care Team Providers Care Flight Radio Officer Name Role Phone Anderson Sanchez Primary Care Provider [phone] Allergies No known active allergies Medications Diclofenac-Mis [...] Pap Smear Discontinued Zoster (Zostavax) Discontinued Insurance [employer] F[employer] FOR SERVICE PPO * Guarantor: JAVED TSE Account Type Relation to Patient Date of Phone Billing Address [employer] [address] [place] [address] EYEMED ACCESS Care Teams Flight Radio Officer Relationship Specialty Start Date End Date Anderson Sanchez [address] [address] PCP - General Rheumatology 06/10/12
[2024-09-30 07:47] VITALS: BP 130/66; PULSE 63; O2SAT 92
--- NOTE | 2024-09-30 07:47 | A.OFFVIS_ITS ---
Vital Signs 3 09/30/24 07:47 Height 5 ft 2.5 in BP 130/66 Blood Pressure Location Lt brachial Position Sitting Pulse 63 Pulse Source Pulse Oximeter Pulse Oximetry (%) 92 Oxygen Delivery Method Room Air Intake Visit Reasons: Thyroid cancer Intake Note: Patient present today for Thyroid cancer office visit. 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 Accompanied by: Self / Same As Patient Allergies ciprofloxacin (Cipro) Allergy (Intermediate, Verified 09/30/24 07:58) rash amlodipine Adverse Reaction (Intermediate, Verified 09/30/24 07:58) swelling Medication List - Last Reconciled 09/30/24 by Bernarda Whiteside MD albuterol sulfate 90 mcg/actuation 2 puffs inhalation Q6H PRN azithromycin For 250 mg dose pack: take 500 mg today (day 1), then 250 mg for 4 days (days 2-5) PO benzonatate 100 mg PO bid-tid PRN 7 days blood sugar diagnostic (AMS VariCodeTouch Verio test strips) test once daily cholecalciferol (vitamin D3) 125 mcg PO .2x /week cyclosporine 0.05% (Restasis) 1 drp ophthalmic (eye) Q12H diclofenac sodium 37.5 mg (1/2 x 75 mg) PO BID empagliflozin (Jardiance) 25 mg PO DAILY folic acid 1 mg PO DAILY glimepiride 2 mg PO DAILY 90 days levothyroxine 112 mcg PO DAILY 90 days lisinopril 10 mg PO DAILY metformin 500 mg PO BID methotrexate sodium 10 mg (4 x 2.5 mg) PO QWEEK 90 days misoprostol 200 mcg PO BID prednisone 40 mg (2 x 20 mg) PO DAILY simvastatin 10 mg PO BEDTIME sitagliptin phosphate (Januvia) 50 mg PO DAILY 90 days zolpidem (Ambien) 10 mg PO BEDTIME PRN 90 days HPI Comments Details: 64-year-old female coming in today for follow up of thyroid cancer, with a history of PTC status post total thyroidectomy 04/2016 with pathology revealing 1.5 cm right dominant tumor with no lymphovascular invasion, no extrathyroidal extension, with central lymph node dissection with 6/7 lymph nodes positive for PTC (likely AJCC stage I, however pathology report not available, RAHUL intermediate risk of recurrence? ), status post I 131 treatment with radioactive iodine 90 mCi 07/2016 with local lymph node recurrence 03/29 lymph node positive for metastatic PTC status post right lateral neck dissection 11/09/2021, status post radioactive iodine treatment with 150 mCi 02/2022 who is seen for follow up. Currently RAHUL excellent response to therapy. She was previously following with Dr. Freedman, then she saw Dr. Rankin last seen February 2023. History of PTC in detail 04/2016: Was undergoing surgery at [facility] for primary hyperparthyroidism where intraoperatively surgeon detected abnormal thyroid , Diagnosed with multifocal PTC status post total thyroidectomy with pathology revealing 1.5 cm right dominant tumor with no lymphovascular invasion, or extrathyroidal extension with central lymph node dissection with 6/7 lymph nodes positive for PTC. 07/2016: Status post I 131 treatment with 90 mCi, posttreatment whole-body scan at that time revealed uptake within the thyroid bed only. Apparently after that she continued to have stimulated TG levels between 1-10 indicating an indeterminate response. She was followed with a early surveillance ultrasound. Spring 2021: Ultrasound neck showed abnormal cervical lymph node in the right neck, status post FNA biopsy which was positive for metastatic disease. 11/09/2021: Status post right lateral neck dissection with Dr. Kris Gant at [facility], with a resection of her right cervical 2, 2A, 3, 4 lymph nodes. 2/17 lymph nodes were positive for metastatic PTC 03/04: Status post 150 mCi of I 131 adjuvant treatment. This was completed through withdrawal method. 02/28/2022: TSH 31.4, TG 0.6, negative TG antibodies 03/15/2022: Whole-body scan revealed physiologic uptake only 05/09/2022: PET-CT showed no abnormal FDG activity. 05/13/2022: Ultrasound head and neck without any abnormal lymph nodes. 05/20/2023: Ultrasound of the neck per my review shows normal-appearing lymph nodes 12/10/2023: Ultrasound of the neck showed normal-appearing lymph nodes Interval history No voice changes , no difficulty swallowing Weight stable On levothyroxine 112 mcg daily, appropriate administration and adherence 09/22/2024: Ultrasound neck did not show any abnormal lymphadenopathy 09/17/2024: TSH 0.02, free T4 1.46, TG less than 0.1, TG antibody less than 1 Osteopenia with elevated frax History of hyperparathyroidism Fracture 2015 : right wrist , fell on driveway, 2009: left wrist Notably she also has a history of hyperparathyroidism status post single gland parathyroidectomy in 2017. This was at [facility]. DEXA 01/03: Normal bone density of the lumbar spine with T-score of 0.3, 2.6% decrease from previous bone density in 2021. T-score-1.3 of the left femoral neck consistent with osteopenia. T-score of -0.9 at the left femur total with a decrease of 3.3% compared to 2021. FRAX score 31.7% for major osteoporotic fracture, hip fracture 1.7%. Vitamin D : one capsule a day Calcium : no supplements , milk: 2times a week , cheese not much , yogurt : none Kidney stones : yes CKD stage 3 , Rheumatoid arthritis Mother fractured hip Steroids : intermittent prednisone courses for RA Menopause : 2017, late 50s, natural menopause , menarche: 11 years S/p hystrectomy plus B/L salpingoophorectomy 2023 because of DUB Occasional acid reflux, no PPI use No seziure history No chronic inflammatory lung or bowel disease All dentures Never smoker Interval history 09/17/2024 secondary workup for osteoporosis unremarkable, CTX 347, 1 specific alkaline phosphatase 10, vitamin-D level 40.9 Physical exam General: sitting comfortably in no acute distress HEENT: normocephalic/atraumatic, Cardiac: normal heart rate Pulm: normal pulmonary effort Abd: not distended Extremities: no edema, no signs of myxedema Neuro: AAO x3, Speech: normal, no facial droop, moving all 4 extremities Laboratory Tests 02/12/18 07/28/20 12/01/20 07:44 08:20 07:00 Free T4 1.66 1.25 1.46 TSH 0.03 L 0.15 L Thyroglobulin Thyroglobulin Antibody 03/08/21 06/15/21 07/19/21 07:58 07:50 08:15 Free T4 1.20 1.18 TSH 5.77 H 0.24 L 0.03 L Thyroglobulin 0.6 L Thyroglobulin Antibody <1 12/19/21 02/28/22 02/28/22 15:00 07:42 07:42 Free T4 1.23 < 0.42 L TSH 0.70 31.39 H Thyroglobulin 0.3 L 0.6 H 0.6 L Thyroglobulin Antibody <1 <1 02/28/22 03/25/22 04/08/22 07:42 13:50 09:21 Free T4 1.09 2.77 H TSH 31.41 H 0.14 L Thyroglobulin 4.4 H Thyroglobulin Antibody <1 <1 05/31/22 07/25/22 03/06/23 08:10 09:02 09:16 Free T4 1.41 1.35 1.33 TSH 0.15 L 0.21 L 0.32 Thyroglobulin 0.1 H 0.1 H <0.1 Thyroglobulin Antibody <1 <1 <1 06/05/23 11/26/23 14:06 07:46 Free T4 1.08 1.54 TSH 0.50 0.09 L Thyroglobulin 0.1 H Thyroglobulin Antibody <1 Laboratory Tests 09/17/24 09/17/24 06:00 07:38 Creatinine 1.53 H Estimated GFR 34 Calcium 9.2 Ionized Calcium 5.1 Phosphorus 4.5 Alk Phos Bone Specific 10.0 Collgn I C-Telopeptide 347 25-OH Vitamin D Total 40.9 TSH 0.02 L Free T4 1.46 Thyroglobulin <0.1 L PTH Intact 39.8 Ur 24 Hour Volume 1450 Ur Creatinine mg/dL 59.93 Ur Creatinine 24 Hour 0.9 L Ur Calcium 24 Hr 58 Calcium/Creat 24 Hr 63 Thyroglobulin Antibody <1 EXAMINATION: US HEAD NECK SOFT TISSUE 09/22/24 HISTORY: Z85.850 - Personal history of malignant neoplasm of thyroid COMPARISON: Comparison is made with the prior examination dated 12/10/2023. FINDINGS: Sonographic examination of the thyroid bed was performed. The thyroid is surgically absent. An ovoid normal appearing right level III node is identified measuring 9 x 8 x 8 mm. There is no lymphadenopathy. US/US soft tiss head and/or neck IMPRESSION: Status post thyroidectomy. No evidence of cervical lymphadenopathy. Electronically signed by: Miah Jerez MD 09/23/2024 07:44 AM EDT US SOFT TISSUE NECK 12/10/23 CLINICAL INFORMATION: History thyroid cancer. COMPARISON: Ultrasound soft tissues neck dated 05/20/2023. TECHNIQUE: Ultrasound of the neck soft tissues is performed with high- frequency lopez-scale imaging and color Doppler. FINDINGS: THYROID BED: Prior thyroidectomy. No residual thyroid tissue demonstrated in the thyroid bed. No cystic or solid nodules demonstrated in the thyroid bed. RIGHT NECK SOFT TISSUES: The largest lymph node is follows: Level 5A: 0.5 x 0.2 x 0.5 cm. Normal deborah architecture. LEFT NECK SOFT TISSUES: Unremarkable. US/US soft tiss head and/or neck IMPRESSION: 1. The thyroid gland is surgically absent. No abnormal mass or fluid collection is seen within the former thyroid bed. 2. A small benign, nonpathologically enlarged lymph node is incidentally seen within right cervical level 5A. No cervical lymphadenopathy is presently demonstrated bilaterally. Electronically signed by: Eliu Cabral MD 12/11/2023 10:41 AM EDT RP US SOFT TISSUE HEAD/NECK 05/20/23 CLINICAL INFORMATION: Malignant neoplasm of thyroid gland. COMPARISON: Ultrasound soft tissue neck 05/13/2022. Ultrasound soft tissue head/neck 03/05/2017. TECHNIQUE: Linear transducer lopez-scale and color Doppler examination of the thyroid bed and surrounding soft tissue. FINDINGS: No abnormal tissue seen in the thyroid bed or thyroid nodule. There are 4 right cervical lymph nodes. It is difficult to evaluate small lymph nodes for ultrasound morphology given size. There is a right level I-B lymph node measuring 0.7 x 0.3 x 0.6 cm in sagittal AP and transverse dimension. This is normal in morphology and slightly decreased in size from prior exam. There is a right level III lymph node that measures 0.9 x 0.4 x 0.7 cm. This may have a slit-like or absent hilum and possibly could be cystic. This is not appreciated on prior exam. There is a 0.7 x 0.3 x 0.6 cm right level IV lymph node. There is a left level IV lymph node measuring 1 x 0.3 x 0.4 cm. This is increased in size from 0.5 x 0.3 x 0.6 cm on prior exam. This may have been absent or slit-like hilum and possibly be cystic. This was not appreciated on previous exam. There are 2 left cervical lymph nodes. There is a 0.5 x 0.4 x 0.4 cm left level II lymph node. This is not appreciably changed in size from previous exam. US/US soft tiss head and/or neck IMPRESSION: Small bilateral cervical lymph nodes. Largest lymph node is a level IV lymph node on the left which is increased in size. There are 2 new right cervical lymph nodes seen. It is difficult to evaluate morphology of lymph nodes due to small size. US SOFT TISSUE NECK 05/13/22 CLINICAL INFORMATION: History of thyroid cancer/papillary. COMPARISON: None available. TECHNIQUE: Limited ultrasound imaging neck lymph nodes was performed. FINDINGS: There are bilateral lymph nodes visualized. RIGHT NECK: Level Ib: Lymph node measures 1.1 x 0.4 x 0.5 cm and has normal architecture. Level 2: Lymph node measures 0.5 x 0.6 x 0.6 cm. It has normal architecture. LEFT NECK: Level 2: Lymph node measures 0.3 x 0.3 x 0.6 cm. It has abnormal architecture. Level 4: Lymph node measures 0.5 x 0.3 x 0.6 cm. It has normal architecture. US/US soft tiss head and/or neck IMPRESSION: 1. Subcentimeter abnormal-appearing lymph node left neck level 2. Recommend follow-up. The rest of the lymph nodes are benign-appearing. 2. If clinically indicated further evaluation of the neck soft tissues and nodes may be performed with CT soft tissue neck with intravenous contrast. BONE DENSITOMETRY 02/02 CLINICAL INDICATION: Age-related osteoporosis without current pathological fracture. COMPARISON: Previous BD dated 05/04/2021 and baseline BD dated 02/11/2019. TECHNIQUE: Using a Biodesy DXA System (software version: 13.1) manufactured by [employer], dual-energy x-ray absorptiometry was performed of the lumbar spine and left hip. The images are of good technical quality. Summary results are attached. FINDINGS: LEFT FEMUR, NECK: Current: BMD 0.862 g/cm2, Z-score -0.1, T-score -1.3, osteopenia. Prior: BMD 0.857 g/cm2. Baseline: BMD 0.865 g/cm2. LEFT FEMUR, TOTAL: Current: BMD 0.897 g/cm2, Z-score 0.0, T-score -0.9, normal, 3.3% decrease from previous, 3.0% decrease from baseline (<5% change is not significant). Prior: BMD 0.928 g/cm2. Baseline: BMD 0.925 g/cm2. AP SPINE L1-L3 (excluding L4): The data of L1-L4 has been changed to exclude the L4 vertebral body, because at this level may cause overestimation of lumbar spine density. Current: BMD 1.200 g/cm2, Z-score 1.4, T-score 0.3, normal, 2.6% decrease from previous, 0.3% decrease from baseline (<5% change is not significant). Prior: BMD 1.232 g/cm2. Baseline: BMD 1.204 g/cm2. IDENTIFIED RISK FACTORS: Menopause, hysterectomy, renal, rheumatoid arthritis, height loss, family history (parent hip fracture). HISTORY OF FRACTURE: Wrist. MEDICATIONS: Vitamin D. MM/XR DEXA axial skeleton IMPRESSION: 1. DIAGNOSIS: Osteopenia based on the lowest T-score value of -1.3 in the femoral neck applying World Health Organization criteria. 2. 10-YEAR FRACTURE RISK PREDICTION, FRAX: Major osteoporotic fracture (clinical spine, forearm, hip or shoulder) 31.7%. Hip fracture 1.7%. [facility] Medical History (Updated 08/16/24 @ 15:54 by Bernarda Whiteside MD) Abdominal wall hernia Anterolisthesis of cervical spine Methotrexate, fdc, current use History of radioactive iodine thyroid ablation History of hyperparathyroidism Postoperative hypothyroidism Vitamin D deficiency Thyroid cancer Type 2 diabetes mellitus with hyperglycemia Hypothyroid Obesity (BMI 30-39.9) Parotitis History of thyroid cancer Rheumatoid arthritis Hypercholesterolemia Hypertension Insomnia Surgical History History of hernia repair H/O knee surgery History of hysterectomy History of hysteroscopy History of thyroid surgery History of parathyroid surgery H/O wrist surgery History of tonsillectomy History of section Family History Father CAD (coronary artery disease) Mother Dementia CAD (coronary artery disease) Sister Breast cancer Depression Social History Housing: House Are you a primary healthcare translator to a significant other at home: No Do you presently have visiting nurse or other home services: No Alcohol intake: current Alcohol intake frequency: holidays/special occasions only Patient Tobacco Use Status: Never used Tobacco Tobacco use type: Cigarette e-Cigarette/Vaping Use: Never Used Second Hand Smoke Exposure: No service: No Current occupational status: employed Current occupational exposures/hazards: No Cognitive needs: No Hearing needs: No Vision needs: Yes Female Reproductive History Menstrual Age of Menarche: 12 Physical Exam Vital Signs: Last Vital Signs Pulse 63 09/30/24 07:47 BP 130/66 09/30/24 07:47 Pulse Ox 92 09/30/24 07:47 Oxygen Delivery Method Room Air 09/30/24 07:47 Assessment & Plan Assessment & Plan (1) History of thyroid cancer: Comment: Papillary April 2016 [address]. Johny Buckner Right selective neck dissection November 2021 Code(s): Z85.850 - Personal history of malignant neoplasm of thyroid Category: Medical Plan: 64-year-old female coming in today for follow up of thyroid cancer, with a history of PTC status post total thyroidectomy 04/2016 with pathology revealing 1.5 cm right dominant tumor with no lymphovascular invasion, no extrathyroidal extension, with central lymph node dissection with 6/7 lymph nodes positive for PTC (likely AJCC stage I, however pathology report not available, RAHUL intermediate risk of recurrence? ), status post I 131 treatment with radioactive iodine 90 mCi 07/2016 with local lymph node recurrence 03/29 lymph node positive for metastatic PTC status post right lateral neck dissection 11/09/2021, status post radioactive iodine treatment with 150 mCi 02/2022 who is seen for follow up. Currently RAHUL excellent response to therapy. 09/22/2024: Ultrasound neck did not show any abnormal lymphadenopathy 09/17/2024: TSH 0.02, free T4 1.46, TG less than 0.1, TG antibody less than 1 Her TG levels have been less than 0.1 recently, consistent with the excellent response to therapy. we can liberalize her TSH to 0.5-2. Plan: -decrease levothyroxine to 100 mcg daily -ordered TSH, free T4, to be done in 6 weeks, we will reach out with the results -ultrasound of the neck ordered for August 2025 prior to follow up in September 2025 -she will also need TG, TG antibody levels to be done prior to follow up in September [address] these orders later. -follow up in September 2025 (2) Postoperative hypothyroidism: Code(s): E89.0 - Postprocedural hypothyroidism Category: Medical Plan: Currently on levothyroxine 112 mcg daily. 09/17/2024: TSH 0.02, free T4 1.46, TG less than 0.1, TG antibody less than 1 Her TG levels have been less than 0.1 recently, consistent with the excellent response to therapy. we can liberalize her TSH to 0.5-2. Plan: -decrease levothyroxine to 100 mcg daily -ordered TSH, free T4, to be done in 6 weeks, we will reach out with the results (3) Osteopenia: Comment: February 2019, 12/2023 Code(s): M85.80 - Other specified disorders of bone density and structure, unspecified site Category: Medical Qualifiers: Osteopenia location: hip Laterality: left Qualified Code(s): M85.852 - Other specified disorders of bone density and structure, left thigh Plan: History of hyperparathyroidism, status post single gland parathyroidectomy in 2017 at [facility]. Now noted to have osteopenia with DEXA scan in December 2023 showing Normal bone density of the lumbar spine with T-score of 0.3, 2.6% decrease from previous bone density in 2021. T-score-1.3 of the left femoral neck consistent with osteopenia. T-score of -0.9 at the left femur total with a decrease of 3.3% compared to 2021. FRAX score 31.7% for major osteoporotic fracture, hip fracture 1.7%. FRAX score is meeting treatment criteria. She has had 2 previous wrist fractures however that was before her surgery for parathyroid. Risk factors for bone loss are age, being postmenopausal, history of primary hyperparathyroidism, poor nutritional intake of calcium, history of rheumatoid arthritis on methotrexate previously, intermittent steroid use, family history of osteoporosis. September 2024 secondary workup was unremarkable. CTX 347, 1 specific alkaline phosphatase 10, vitamin-D level 40.9 She does meet criteria for treatment for osteopenia. We discussed oral bisphosphonate therapy given osteopenia with a elevated FRAX with the Fosamax 70 mg weekly. Discussed method of administration, common side effects including acid reflux, rare side effects of osteonecrosis of the jaw and atypical femur fracture. We also discussed 2nd option of continuing with conservative therapy with vitamin-D intake, maintain nutritional intake of calcium, and watching bone resorption markers for now especially given CTX was not that elevated. Next bone density would be due December 2025. At this time she would like to monitor resorption markers and continue with vitamin-D and calcium. Plan: -continue vitamin-D supplement -maintain nutritional intake of calcium to maintain 1000 mg daily -weight-bearing exercise advised -plan to do CTX, bone specific alkaline phosphatase, calcium, vitamin-D, kidney function levels prior to next visit in September 2025, we will order these later -follow up in September 2025 (4) History of hyperparathyroidism: Code(s): Z86.39 - Personal history of other endocrine, nutritional and metabolic disease Category: Medical Plan: See above Plan I spent 45 minutes in reviewing the record, seeing the patient and documenting in the medical record. Orders: Orders 2 Thyroid Stimulating Hormone 6 Weeks E89.0 - Postprocedural hypothyroidism, Z85.850 - Personal history of malignant neoplasm of thyroid Free T4 (Free Thyroxine) 6 Weeks E89.0 - Postprocedural hypothyroidism, Z85.850 - Personal history of malignant neoplasm of thyroid US soft tiss head and/or neck 08/22/25 E89.0 - Postprocedural hypothyroidism, Z85.850 - Personal history of malignant neoplasm of thyroid Medications: New 2 levothyroxine (Synthroid) 100 mcg PO DAILY 90 tabs 2RF Discontinued 2 levothyroxine Discontinued Reason: Doctor's Order 112 mcg PO DAILY 90 days 90 tabs 2RF Patient Instructions: Reduce levothyroxine to 100 mcg daily Do blood work in 6 weeks , we will reach out with results next US neck due August 2025, someone will call you to schedule this, please do it prior to appointment in Sep 2025 Continue vitamin D supplements Maintain 1000 mg of calcium intake daily through diet ideally whihc 2-3 servings of calcium rich foods daily Walk 30 mins 5 days a week Follow up in September 2025, you will also need to do some blood work 2 weeks prior to that appointment whihc would be fasting Coding Level of Care Code Est Pt Level 5 (78574) Complex EM visit Add On G2211 Diagnoses History of thyroid cancer Z85.850 Postoperative hypothyroidism E89.0 Osteopenia of left hip M85.852 Osteopenia location: hip Laterality: left History of hyperparathyroidism Z86.39 Time Spent (min) 45
== END 2024-09-30 08:16 | disposition home or self-care (01) ==
LOC: HO.ENCR 07:32
PROVIDERS: PCP Internal Medicine; Visit Provider Student in an Organized Health Care Education/Training Program
DX: E89.0 Postprocedural hypothyroidism (principal); M85.852 Other specified disorders of bone density and structure, left thigh; Z85.850 Personal history of malignant neoplasm of thyroid; Z86.39 Personal history of other endocrine, nutritional and metabolic disease
CPT/HCPCS: 99215

== ENCOUNTER 2024-10-07 06:33 | Outpatient (REF) | payer OTHER, SELFPAY ==
--- OUTSIDE RECORDS SUMMARY | 2024-06-22 05:30 | XMS_ITS ---
Author Organization [facility] Address [address] [place] [address] Care Team Providers Care Marketing Development Manager Name Role Phone Barbara Victor Primary Care Provider Unavailabl Sergio Zendejas Unavailable [phone] REASON FOR VISIT Seen Sooner Encounters Encounter Location Date Provider Diagnosis [address] [address] 06/22/2024 Sergio Malik Plan Of Treatment Next Appt Details Provider Name:Sergio Malik , 10/29/2024 08:45:00 AM, [address] [place] [address], [phone], Provider Name:Sergio Malik , 01/11/2025 08:45:00 AM, [address] [place] [address], [phone], Progress Notes * Joanna TSE MDOB:1960 (64 yo F)Acc No.[id number]:06/22/2024 Progress Note Patient: Joanna WEBSTER Provider: Taye Malik DPM :1960 A ge:63 Y S ex:Female Date:06/22/2024 Address:[address] [place] [address] [facility] , [place], [place] Pcp:Lorenver Po Subjective: * Chief Complaints: * [...] 06/22/2024 Generated for Joao patterson/Erin/Laxmi on: 0 10/07/2024 06:36 AM EDT
--- OUTSIDE RECORDS SUMMARY | 2024-10-07 06:36 | XMS_ITS | Patient Health Record ---
[facility] Address [address] [place] [address] Care Team Providers Care Branch Rental Manager Name Role Phone Barbara Victor Primary Care Provider Sergio Montelongo Unavailable [phone] Allergies Allergen (clinical drug ingredient) Drug/Non Drug [...] Problem Acquired hammer toe of right foot (42088326798191 05) Other hammer toe(s) (acquired), right foot (M20.41) Active confirmed Problem Type 2 diabetes mellitus with peripheral angiopathy (345954443) Type 2 diabetes mellitus with diabetic peripheral angiopathy without gangrene (E11.51) Active confirmed Problem Acquired hammer toe of left foot (77528985147020 03) Other hammer toe(s) (acquired), left foot (M20.42) Active confirmed Vital Signs Blood pressure diastolic 60 mm Hg 08/20/2024 Height 5ft2.5in in 08/20/2024 Blood pressure systolic 126 mm Hg 08/20/2024 Weight 163 lbs 08/20/2024 BMI 29.33 kg/m2 08/20/2024 Procedures Procedure Date Ordered Date Performed Result Body Sit e 40071-TBOTBMC NAIL, 6 OR MORE 11/25/2023 N/A 67829-OPGB SKIN LESIONS, OVER 4 11/25/2023 N/A 80892-SGVQCEN NAIL, 6 OR MORE 01/30/2024 N/A 65240-RFAW SKIN LESIONS, OVER 4 01/30/2024 N/A 87464-ATBHHRE NAIL, 6 OR MORE 04/02/2024 N/A 86624-SBVV SKIN LESIONS, OVER 4 04/02/2024 N/A 16439-KSGCTRG NAIL, 6 OR MORE 06/11/2024 N/A 52608-UETW SKIN LESIONS, OVER 4 06/11/2024 N/A 29792-QLFKRKE NAIL, 6 OR MORE 08/20/2024 N/A 07597-QIYF SKIN LESIONS, OVER 4 08/20/2024 N/A Encounters Encounter Location Date Provider Diagnosis [address] [address] 11/25/2023 Sergio Malik Type 2 diabetes mellitus with diabetic peripheral angiopathy without gangrene E11.51 ; Tinea unguium B35.1 ; Pain in right toe(s) M79.674 and Pain in left toe(s) M79.[address] [address] 01/30/2024 Sergio Malik Type 2 diabetes mellitus with diabetic peripheral angiopathy without gangrene E11.51 ; Tinea unguium B35.1 ; Pain in right toe(s) M79.674 and Pain in left toe(s) M79.[address] [address] 04/02/2024 Sergio Helena Type 2 diabetes mellitus with diabetic peripheral angiopathy without gangrene E11.51 ; Tinea unguium B35.1 ; Pain in right toe(s) M79.674 ; Pain in left toe(s) M79.675 ; Other hammer toe(s) (acquired), right foot M20.41 and Other hammer toe(s) (acquired), left foot M20.[address] [address] 06/11/2024 Sergio Malik Type 2 diabetes mellitus with diabetic peripheral angiopathy without gangrene E11.51 ; Tinea unguium B35.1 ; Pain in right toe(s) M79.674 and Pain in left toe(s) M79.[address] [address] 08/20/2024 Sergio Malik Type 2 diabetes mellitus with diabetic peripheral angiopathy without gangrene E11.51 ; Tinea unguium B35.1 ; Pain in right toe(s) M79.674 and Pain in left toe(s) M79.[address] [address] 11/25/2023 Sergio Loounier Assessments Encounter Date Diagnosis [...] Treatment Pending Test Test Name Order Date 76465-WDSPUGN NAIL, 6 OR MORE 12/10/2019 31249-AFJHPZL NAIL, 6 OR MORE 02/29/2020 66381-LAURXTN NAIL, 6 OR MORE 05/30/2020 47346-TAJOWAS NAIL, 6 OR MORE 08/29/2020 28423-CJVUMVJ NAIL, 6 OR MORE 11/28/2020 94121-GCJZEIW NAIL, 6 OR MORE 03/06/2021 54253-ONCLOOP NAIL, 6 OR MORE 06/08/2021 64338-YYNPXUH NAIL, 6 OR MORE 09/11/2021 06982-JOEWJBK NAIL, 6 OR MORE 12/11/2021 33176-KFLLZSH NAIL, 6 OR MORE 02/15/2022 16330-OMMDTOE NAIL, 6 OR MORE 05/28/2022 65559-ISGPMUL NAIL, 6 OR MORE 08/16/2022 16932-TKKZITT NAIL, 6 OR MORE 11/05/2022 17403-ECWUGVF NAIL, 6 OR MORE 01/07/2023 78479-XSFLEZY NAIL, 6 OR MORE 03/11/2023 99881-QGDMAFV NAIL, 6 OR MORE 05/13/2023 91920-HQTDSGU NAIL, 6 OR MORE 07/15/2023 49745-JUGINVK NAIL, 6 OR MORE 09/23/2023 32850-HEVQJNJ NAIL, 6 OR MORE 11/25/2023 18245-UPKISAI NAIL, 6 OR MORE 01/30/2024 50771-TXWWZWQ NAIL, 6 OR MORE 04/02/2024 81404-NJEQRLW NAIL, 6 OR MORE 06/11/2024 30597-TSHCQTS NAIL, 6 OR MORE 08/20/2024 98842-ONPQ SKIN LESIONS, OVER 4 08/21/19 44760-UDXS SKIN LESIONS, OVER 4 06/12/19 72749-PFQX SKIN LESIONS, OVER 4 04/02/19 25 81433-QLOA SKIN LESIONS, OVER 4 01/30/20 24 82446-ZJCC SKIN LESIONS, OVER 4 11/25/19 24 12946-CQZS SKIN LESIONS, OVER 4 09/23/19 24 78710-ITXU SKIN LESIONS, OVER 4 07/15/19 24 81696-KGOH SKIN LESIONS, OVER 4 05/13/19 24 21530-VDKX SKIN LESIONS, OVER 4 03/11/19 24 08499-YUDZ SKIN LESIONS, OVER 4 01/08/20 23 82491-EDNP SKIN LESIONS, OVER 4 11/06/19 23 53981-FDMW SKIN LESIONS, OVER 4 08/17/19 23 28367-QNTX SKIN LESIONS, OVER 4 05/29/19 23 41096-DTSG SKIN LESIONS, OVER 4 02/15/19 23 66063-EIFR SKIN LESIONS, OVER 4 12/12/19 59398-WGZT SKIN LESIONS, OVER 4 09/12/19 43455-MZEW SKIN LESIONS, OVER 4 06/09/19 22 49220-FRKQ SKIN LESIONS, OVER 4 03/06/19 22 01387-WJOC SKIN LESIONS, OVER 4 11/29/19 80914-AUZC SKIN LESIONS, OVER 4 08/30/19 29781-GLJV SKIN LESIONS, OVER 4 04/20/20 21 27442-THAO SKIN LESIONS, OVER 4 02/28/19 21 61329-ZCND SKIN LESIONS, OVER 4 12/10/19 20 Next Appt Details Provider Name:Sergio Malik , 10/29/2024 08:45:00 AM, [address] [place] [address], [phone], Provider Name:Sergio Malik , 01/11/2025 08:45:00 AM, [address] [place] [address], [phone], Insurance Providers Payer Name Payer Address Payer Phone Subscriber Number Group Number Insured Name Patient Relationship to Insured Coverage Start Date Coverage End Date Blue Benefits [address] [address] [place] [address] [id number] Joanna Tse Self - patient is the insured Medical (General) History Medical History History ICD Code Rheumatoid Arthritis Cancer - Thyroid High blood pressure Rheumatic fever Chicken pox Bone implants/screws CAD type II diabetes Surgical History Surgery Date(Month/Year) Thyroid Surgery 04/26,11/09/21 Broken wrist 05/25 bunion Surgery 2008 1984,1986 Right quad rupture repair 07/23/23 hysterectomy 06/09/2023
--- OUTSIDE RECORDS SUMMARY | 2024-10-07 06:36 | XMS_ITS | Encounter Summary ---
Author Organization [facility] Address [address] [place] [address] Care Team Providers Care Molder Apprentice Name Role Phone ValenteBarbara Katelynn Primary Care Provider [phone] Reason for Visit * Reason Onset Date Comments Med Refill 03/30/2021 Encounter Details Date Type Department Care Team (Late st Contact Info) Description 03/30/2021 Telephone [facility] [address] [place] [address] Telephone Intake, Staff Med Refill Social History [...] not request PCP information rather they requested [facility] endo contact info and did not give a reason why. Since endo does not prescribe the med, nurse requested that pt call [facility] to resolve issue. * Telephone Encounter - [...] Pt of Dr. Franklin Almonte calling from [facility] This is her second attempt at trying to get a renewal for pt (Onglyza 5mg) Please call or fax to: Please: use reference #[id number] documented in this encounter Plan of Treatment Not on file documented as of this encounter Visit Diagnoses Not on filedocumented in this encounter Care Teams Molder Apprentice Relationship Specialty Start Date End Date Barbara Victor [address] [place] [address] dr Supa [place], [place] [address] PCP - General Internal Medicine 06/24/17 documented as of this encounter
--- OUTSIDE RECORDS SUMMARY | 2024-10-07 06:36 | XMS_ITS | Clinical Summary ---
Author Organization [facility] Address [address] [place] [address] Care Team Providers Care Slot Floor Supervisor Name Role Phone Anderson Sanchez Primary Care Provider [phone] Allergies No known active allergies Medications Diclofenac-Mis [...] Pap Smear Discontinued Zoster (Zostavax) Discontinued Insurance [facility] FEE FOR SERVICE PPO * Guarantor: JAVED TSE Account Type Relation to Patient Date of Phone Billing Address [employer] [address] [place] [address] EYEMED ACCESS Care Teams Slot Floor Supervisor Relationship Specialty Start Date End Date Anderson Sanchez [address] [address] PCP - General Rheumatology 06/10/12
--- OUTSIDE RECORDS SUMMARY | 2024-10-07 06:36 | XMS_ITS | Encounter Summary ---
Author Organization [facility] Address [address] [place] [address] Care Team Providers Care Rubber Compounder Name Role Phone Barbara Victor Primary Care Provider [phone] Encounter Details Date Type Department Care Team (Late st Contact Info) Description 07/02/2016 Orders Only [facility] [address] [address] 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 MD [address] [place] [address] Social History Tobacco Use Types Packs/Day Years [...] on filedocumented in this encounter Care Teams Rubber Compounder Relationship Specialty Start Date End Date Barbara Victor [address] [place] [address] [place] [address] PCP - General Internal Medicine 06/24/17 documented as of this encounter
--- OUTSIDE RECORDS SUMMARY | 2024-10-07 06:36 | XMS_ITS | Encounter Summary ---
Author Organization [facility] Address [address] [place] [address] Care Team Providers Care Bat Carrier Name Role Phone Barbara Victor Primary Care Provider [phone] Encounter Details Date Type Department Care Team (Late st Contact Info) Description 09/24/2016 Orders Only [facility] [address] [address] 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 MD [address] [place] [address] Social History Tobacco Use Types Packs/Day Years [...] on filedocumented in this encounter Care Teams Bat Carrier Relationship Specialty Start Date End Date Barbara Victor [address] [place] [address] [place] [address] PCP - General Internal Medicine 06/24/17 documented as of this encounter
--- OUTSIDE RECORDS SUMMARY | 2024-10-07 06:36 | XMS_ITS | Clinical Summary ---
Author Organization [facility] Address [address] [place] [address] Care Team Providers Care Ice Guard Skating Rink Name Role Phone ValenteBarbara Katelynn Primary Care Provider [phone] Allergies Active Allergy Reactions Criticality Noted Date [...] a low intensity statin. I assume Dr. Vitcor is following her lipid levels. Assessment & [...] in February. 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 Problems [...] complete this topic Procedures * Due to [place] [employer] law, this organization might not be sharing [...] to Health Maintenance Results * Due to [place] [employer] law, this organization might not be sharing negative HIV tests. * (ABNORMAL) Microalbumin/Creatinine Urine Ratio, Random (01/24/2020 9:14 AM EST) Microalbumin, Urine 5.0 mg/dL 01/24/2020 11:04 AM EST [facility] Creatinine, Urine 23 15 - 278 mg/dL 01/24/2020 11:04 AM EST [facility] Microalb/Creat Ratio, Random Urine 217.4(H) <30.0 mcg/mgCr 01/24/2020 11:04 AM EST [facility] Comment: Microalbumin Reference Range: Normal <30 mcg/mg Creatinine Microalbuminuria 30-300 mcg/mg Creatinine Clinical Albuminuria >300 mcg/mg Creatinine Reference: ADA Guideline. Diabetes Care. 2004;27 (suppl 1) Urine Voided urine specimen / Unknown Non-Blood Collection / Unknown 01/24/2020 9:14 AM EST 01/24/2020 10:30 AM EST us Meaghan Ziegler MD LAB URINE ORDERABLES Final Res ult [facility] [address] [place] [address], * (ABNORMAL) Basic Metabolic Panel, Outside Lab (08/30/2019) Potassium 4.9 Creatinine 1.45(H) mg/dL eGFR Non- 37(L) Blood Structure of peripheral vein / Unknown 08/30/2019 us Unknown Provider LAB BLOOD ORDERABLES Final R esult * (ABNORMAL) Hemoglobin A1c (05/28/2017 3:55 PM EDT) Hemoglobin A1C 7.6(H) <5.7 % of total Hgb 05/28/2017 10:49 PM EDT [employer] Comment: For someone without known diabetes, a [...] (MG/DL) 171 (calc) 05/28/2017 10:49 PM EDT [facility] [facility] eAG (MMOL/L) 9.5 (calc) 05/28/2017 10:49 PM EDT [facility] [facility] Blood specimen (specimen) Structure of peripheral vein / Unknown Venipuncture / Unknown 05/28/2017 3:55 PM EDT 05/28/2017 4:30 PM EDT Narrative [facility] - 05/28/2017 10:49 PM EDT [facility] Received Date:[id number] Jose Manuel Bell MD LAB BLOOD ORDERABLES Final Re sult [facility] [address], [place] [address], [employer] [address], [place] [address], [place] [phone] * DIABETES EYE EXAM (07/31/2016 9:16 AM EDT) Eye Exam [id number] [facility] MANUAL RESULTS 07/31/2016 9:16 AM EDT us Benita Napier MD HEALTH MAINTENANCE Final Resul t Performing Organization Address City/[facility]/ZIP Co de Phone Number [facility] MANUAL RESULTS * MAMMOGRAPHY (05/15/2016 12:00 AM EDT) Mammogram Benign/ there are scattered areas of fibroglandular density . No significant change from prior study 2 OUTSIDE LABORATORY Anatomical Region Laterality Modality Other 05/15/2016 us Historical Conversion Provider HEALTH MAINTENANC E Final Result * Pap w/HPV (06/17/2014 10:55 AM EDT) Path Procedure TPGAS (545598) 1 HPVHR([id number]) 1 Edited by: [id number] - [address] [place] [address] [id number] - 1324 [facility] - [facility] Specimen Labeled As: 1 CERVICAL/ENDOCERVI MAKAYLA CYTO MATERIAL - Edited by: [id number] - 1059 HUGHER1 [facility]OLOGY - [facility] Additional Test Information Specimens were tested for high risk HPV using the FDA approved Digene Hybrid Capture II kit, in the Diagnostic Molecular Oncology Lab at [facility]. This test can detect HPV high risk [...] abnormality. We endorse the recommendations of the [place] Society for Colposcopy and Cervical Pathology for [...] high complexity clinical laboratory testing. Edited by: [id number] - 1324 BW-SCRPT6 [facility] - [facility] Diagnosis ThinPrep Pap Test Adequacy: Satisfactory for evaluation Interpretation: Negative for Intraepithelial Lesion or Malignancy Remarks/Recommenda tions: This is the result of a morphological screening test with an inherent possibility of a false negative interpretation. This Pap test was examined in accordance with the [facility] Cytopathology Laboratory written policy, which incorporates all CLIA mandates. Screening guidelines can be found in Am J Clin Pathol 2012;137:516-542. We endorse the practice guidelines developed by ASCCP and published in the Journal Lower Genital Tract Disease 17(5):S1-S27 (2013). This Pap test was examined by the ThinPrep Imaging System, [employer], [place], [place]. - High risk HPV DNA subtypes: NEGATIVE Edited by: [id number] - 1324 -SCRPT6 [id number] - 0522 FERRAROK [facility] - [facility] Gynecologic Clinical Data Specimen source:, THINPREP (CERVICAL AND ENDOCERVICAL) [facility] - [facility] Gynecologic Clinical Data Gynecologic findings:, POST MENOPAUSAL [facility] - [facility] Pathology Codes Client Order Code:, TPHGS3 [facility] - [facility] Pathology Codes Bill Type:, 3RD CONSTITUTION PARTY BILLING [facility] - [facility] Completed Report [id number] HPV, HIGH RISK TYPES 1 [facility] - [facility] Marker 1 TOR [facility] - [facility] Marker 2 SHLOMO, NEGATIVE [facility] ANATOMIC PATHOLOG[facility] - [facility] Marker 3 NILM,NILM [facility] - [facility] Marker 4 RIM,RECEIVED IN MOLECULAR [facility] - [facility] Marker 5 CRISTY GHOSH-ANDI [facility] - [facility] Cc Results To COMPA Bishop RUBBERIZING MECHANIC [id number] JOHNNY SIU [id number] [facility] - [facility] Signature REPORT SIGNED: TOR LAURA 06/29/14 [facility] - [facility] Sign Out Audit TOR LAURA [id number] FINAL [facility] [id number] [facility] - [facility] Cytology / Unknown 10:55 AM EDT 06/20/2014 10:55 AM EDT us Juliet Napier MD LAB HISTORICAL RESULT S Final Result [facility] - [facility] [address] [place] [id number], [place] * DEXA Bone Density (06/16/2014 1:02 [...] patient has osteopenia. COMMUNICATION: per this report JoseM anuel Bell MD IMG DXA PROCEDURES Final Resu lt * Hepatitis C Antibody w/Reflex to HCV RNA, Quantitative PCR (03/03/2014 2:31 PM EST) Hepatitis C Antibody NON-REACTI VE NON-REACT CRISTINA [facility] Signal To Cut-Off 0.06 <1.00 [facility] 03/03/2014 2:31 PM EST 03/03/2014 3:50 PM EST Jessi Garcia LAB BLOOD ORDERABLES Final Resul t ENEIDA MCGARRY from Last 3 Months or Most Recently Relevant to Health Maintenance [place] [address] [place] [address] [employer] Advance Directives Documents on File Type Date Recorded Patient Embedded Firmware Developer Expl anation Advance Directive 09/12/2014 12:00 AM [facility] dical Dec Making (Adv.Dir) Care Teams Ice Guard Skating Rink Relationship Specialty Start Date End Date Barbara Victor [address] [place] [address] dr Supa [place]art, [place] [address] PCP - General Internal Medicine 06/24/17
--- OUTSIDE RECORDS SUMMARY | 2024-10-07 06:36 | XMS_ITS | Encounter Summary ---
Author Organization [facility] Address [address] [place] [address] Care Team Providers Care Boom Man Name Role Phone Barbara Victor Primary Care Provider [phone] Encounter Details Date Type Department Care Team (Late st Contact Info) Description 03/25/2016 Orders Only [facility] [address] [address] 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 MD [address] [place] [address] Social History Tobacco Use Types Packs/Day Years [...] filedocumented in this encounter Care Teams Boom Man Relationship Specialty Start Date End Date Barbara Victor [address] [place] [address] [place] [address] PCP - General Internal Medicine 06/24/17 documented as of this encounter
[2024-10-07 06:53] LABS: MANUAL DIFF FLAG NO
[2024-10-07 07:15] LABS: Hematocrit 44.1 % (37.0-47.0); Hemoglobin 15.2 g/dl (12.0-16.0); Imm Gran Abs Auto 0.01 X10*3/uL (0.00-0.03); Imm Gran Pct Auto 0.2 % (0.0-0.4); Lymphocytes Absolute Auto 1.2 X10*3/uL (1.2-4.9); Mean Corpuscular HGB Conc 34.5 g/dl (31.0-35.0); Mean Corpuscular Hemoglobin 31.7 pg (27.0-33.0); Mean Corpuscular Volume 92.1 fL (80.0-98.0); NRBC Abs Auto 0.000 X10*3/uL (0.0-0.012); NRBC Pct Auto 0.0 /100WBC (0.0-0.2); Platelet Count 197 X10*3/uL (160-400); Red Blood Count 4.79 X10*6/uL (4.20-5.50); White Blood Count 4.5 X10*3/uL (4.8-10.8)
[2024-10-07 07:48] LABS: Alanine Aminotransferase 37 U/L (0-31); Albumin Level 4.3 g/dL (3.5-5.0); Alkaline Phosphatase 85 U/L (39-117); Anion Gap 14 (12-20); Aspartate Amino Transferase 21 U/L (5-31); Blood Urea Nitrogen 31 mg/dL (9-16); Calcium 10.1 mg/dL (8.4-10.2); Carbon Dioxide 20 mmol/L (22-29); Chloride 109 mmol/L (96-108); Estimated Glomerular Filt Rate 39; Potassium 4.7 mmol/L (3.3-5.1); Sodium 138 mmol/L (135-145); Total Protein 6.7 g/dL (6.5-8.0)
[2024-10-07 08:09] LABS: HBS Num1 1.20 mIU/mL (0-7.99); HBc Num1 0.06 S/CO (0.00-0.79); HBsAGNum1 0.36 S/CO (0.00-0.99); Hepatitis A Antibody IgM 0.68 Index (0-0.79); Hepatitis B Surface Antigen Negative (Negative); ~HepC Num1 0.10 S/CO (0.00-0.79); ~Hepatitis A Antibody IgM Nonreactive (Nonreactive); ~Hepatitis B Surface Antibody NONREACTIVE (Nonreactive); ~Hepatitis C Antibody Nonreactive (Nonreactive)
[2024-10-10 17:38] LABS: TS Negative Control Passed; TS Panel A 0; TS Panel B 0; TS Positive Control Passed; TSpotTB Negative (Negative)
== END 2024-10-07 06:34 | disposition home or self-care (01) ==
LOC: HO.LAB 06:33
PROVIDERS: PCP Internal Medicine; Visit Provider Student in an Organized Health Care Education/Training Program
DX: M05.79 Rheumatoid arthritis with rheumatoid factor of multiple sites without organ or systems involvement (principal); Z11.3 Encounter for screening for infections with a predominantly sexual mode of transmission; Z11.8 Encounter for screening for other infectious and parasitic diseases; Z01.84 Encounter for antibody response examination; Z11.1 Encounter for screening for respiratory tuberculosis
CPT/HCPCS: 36415; 80053; 85025; 85652; 86140; 86481; 86704; 86706; 86709; 86803; 87340

== ENCOUNTER 2024-10-19 07:29 | Outpatient (AMB) | payer OTHER, SELFPAY ==
--- OUTSIDE RECORDS SUMMARY | 2024-06-22 05:30 | XMS_ITS ---
Author Organization [facility] Address [address] [place] [address] Care Team Providers Care Contract Engineer Name Role Phone Barbara Victor Primary Care Provider Unavailabl Sergio Zendejas Unavailable [phone] REASON FOR VISIT Seen Sooner Encounters Encounter Location Date Provider Diagnosis [address] [address] 06/22/2024 Sergio Malik Plan Of Treatment Next Appt Details Provider Name:Sergio Malik , 10/29/2024 08:45:00 AM, [address] [place] [address], [phone], Provider Name:Sergio Malik , 01/11/2025 08:45:00 AM, [address] [place] [address], [phone], Progress Notes * Joanna TSE MDOB:1960 (64 yo F)Acc No.[id number]:06/22/2024 Progress Note Patient: Joanna WEBSTER Provider: Taye Malik DPM :1960 A ge:63 Y S ex:Female Date:06/22/2024 Address:[address] [place] [address] [facility] , [place] Pcp:Lorenver Po Subjective: * Chief Complaints: * [...] 06/22/2024 Generated for Joao patterson/Erin/Laxmi on: 0 10/19/2024 07:32 AM EDT
--- OUTSIDE RECORDS SUMMARY | 2024-10-19 07:31 | XMS_ITS | Encounter Summary ---
Author Organization [facility] Address [address] [place] [address] Care Team Providers Care Hiv/Aids Care Nurse Name Role Phone Barbara Victor Primary Care Provider [phone] Encounter Details Date Type Department Care Team (Late st Contact Info) Description 03/25/2016 Orders Only [facility] [address] [address] 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 MD [address] [place] [address] Social History Tobacco Use Types Packs/Day Years [...] on filedocumented in this encounter Care Teams Hiv/Aids Care Nurse Relationship Specialty Start Date End Date Barbara Victor [address] [place] [address] [place] [address] PCP - General Internal Medicine 06/24/17 documented as of this encounter
--- OUTSIDE RECORDS SUMMARY | 2024-10-19 07:31 | XMS_ITS | Encounter Summary ---
Author Organization [facility] Address [address] [place] [address] Care Team Providers Care Partition Assembly Machine Operator Name Role Phone ValenteBarbara Katelynn Primary Care Provider [phone] Reason for Visit * Reason Onset Date Comments Med Refill 03/30/2021 Encounter Details Date Type Department Care Team (Late st Contact Info) Description 03/30/2021 Telephone [facility] Patient [facility] [address] [place] [address] Telephone Intake, Staff Med Refill Social History [...] not request PCP information rather they requested [facility] endo contact info and did not give a reason why. Since endo does not prescribe the med, nurse requested that pt call [facility] to resolve issue. * Telephone Encounter - [...] Pt of Dr. Franklin Almonte calling from [facility] This is her second attempt at trying to get a renewal for pt (Onglyza 5mg) Please call or fax to: Please: use reference #[id number] documented in this encounter Plan of Treatment Not on file documented as of this encounter Visit Diagnoses Not on filedocumented in this encounter Care Teams Partition Assembly Machine Operator Relationship Specialty Start Date End Date Barbara Victor [address] [place] [address] dr Supa [place], [place] [address] PCP - General Internal Medicine 06/24/17 documented as of this encounter
--- OUTSIDE RECORDS SUMMARY | 2024-10-19 07:31 | XMS_ITS | Clinical Summary ---
Author Organization [facility] Address [address] [place] [place] [id number] Care Team Providers Care Manager Of Case Management Name Role Phone Anderson Sanchez Primary Care Provider [phone] Allergies No known active allergies Medications Diclofenac-Mis [...] 08/13/2009 Zoster (Shingrix) (1 of 2) 08/13/2009 Bone Density 08/13/2024 COVID-19 Vaccine (1 - 2023-2 5 season) 2024 Influenza (#1) 2024 RSV (1 - 1-dose [...] Pap Smear Discontinued Zoster (Zostavax) Discontinued Insurance [facility] FEE FOR SERVICE PPO * Guarantor: JAVED TSE Account Type Relation to Patient Date of Phone Billing Address [employer] [address] [place] [address] EYEMED ACCESS Care Teams Manager Of Case Management Relationship Specialty Start Date End Date Anderson Sanchez [address] [address] PCP - General Rheumatology 06/10/12
--- OUTSIDE RECORDS SUMMARY | 2024-10-19 07:31 | XMS_ITS | Clinical Summary ---
Author Organization [facility] Address [address] [place] [address] Care Team Providers Care Oil Field Worker Name Role Phone ValenteBarbara Katelynn Primary Care Provider [phone] Allergies Active Allergy Reactions Criticality Noted Date [...] in February. 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 [...] - Td or Tdap) 02/10/2023 02/10/2013, 02/20/2012 Alcohol/Substance Use Screening 02/11/2024 Depression Screening and Follow-Up 02/11/2024 Health Care Proxy Review 02/11/2024 Social Drivers of Health Annual Screening 02/11/2024 COVID-19 Vaccine ( season) 2024 09/18/2021, 11/09/2020, 02/21/2020, Additional history exists Influenza Vaccine (#1) 2024 2, 11/23/2020, 11/17/2019, Additional history exists RSV Vaccine (60+ years old and patients) (1 - 1-dose 75+ series) 08/13/2034 Hepatitis C Screening Completed 03/03/2014 Osteoporosis Screening Completed 06/16/2014 Hepatitis B Vaccines Aged Out No long er eligible based on patient's age to complete this topic Procedures * Due to [place] Discourse law, this organization might not be sharing [...] to Health Maintenance Results * Due to [place] Discourse law, this organization might not be sharing negative HIV tests. * (ABNORMAL) Microalbumin/Creatinine Urine Ratio, Random (01/24/2020 9:14 AM EST) Microalbumin, Urine 5.0 mg/dL 01/24/2020 11:04 AM EST [facility] Creatinine, Urine 23 15 - 278 mg/dL 01/24/2020 11:04 AM EST [facility] Microalb/Creat Ratio, Random Urine 217.4(H) <30.0 mcg/mgCr 01/24/2020 11:04 AM EST [facility] Comment: Microalbumin Reference Range: Normal <30 mcg/mg Creatinine Microalbuminuria 30-300 mcg/mg Creatinine Clinical Albuminuria >300 mcg/mg Creatinine Reference: ADA Guideline. Diabetes Care. 2004;27 (suppl 1) Urine Voided urine specimen / Unknown Non-Blood Collection / Unknown 01/24/2020 9:14 AM EST 01/24/2020 10:30 AM EST us Meaghan Ziegler MD LAB URINE ORDERABLES Final Res ult [facility] [address] [place] [address], * (ABNORMAL) Basic Metabolic Panel, Outside Lab (08/30/2019) Potassium 4.9 Creatinine 1.45(H) mg/dL eGFR Non- 37(L) Blood Structure of peripheral vein / Unknown 08/30/2019 us Unknown Provider LAB BLOOD ORDERABLES Final R esult * (ABNORMAL) Hemoglobin A1c (05/28/2017 3:55 PM EDT) Hemoglobin A1C 7.6(H) <5.7 % of total Hgb 05/28/2017 10:49 PM EDT [employer] Comment: For someone without known diabetes, a [...] (MG/DL) 171 (calc) 05/28/2017 10:49 PM EDT [employer] [facility] eAG (MMOL/L) 9.5 (calc) 05/28/2017 10:49 PM EDT [employer] [facility] Blood specimen (specimen) Structure of peripheral vein / Unknown Venipuncture / Unknown 05/28/2017 3:55 PM EDT 05/28/2017 4:30 PM EDT Narrative [facility] - 05/28/2017 10:49 PM EDT [facility] Received Date:[id number] Jose Manuel Bell MD LAB BLOOD ORDERABLES Final Re sult [facility] [address], [place] [address], [employer] [address], [place] [address], [place] [phone] * DIABETES EYE EXAM (07/31/2016 9:16 AM EDT) Eye Exam [id number] [facility] MANUAL RESULTS 07/31/2016 9:16 AM EDT us Benita Napier MD HEALTH MAINTENANCE Final Resul t Performing Organization Address City/[facility]/ZIP Co de Phone Number [facility] MANUAL RESULTS * MAMMOGRAPHY (05/15/2016 12:00 AM EDT) Mammogram Benign/ there are scattered areas of fibroglandular density . No significant change from prior study 2 OUTSIDE LABORATORY Anatomical Region Laterality Modality Other 05/15/2016 us Historical Conversion Provider HEALTH MAINTENANC E Final Result * Pap w/HPV (06/17/2014 10:55 AM EDT) Path Procedure TPGAS (131652) 1 HPVHR([id number]) 1 Edited by: [id number] - [address] [place] [address] [id number] - 132[address] [facility] Specimen Labeled As: 1 CERVICAL/ENDOCERVI MAKAYLA CYTO MATERIAL - Edited by: [id number] - 1051 HUGHER1 [facility] Additional Test Information Specimens were tested for high risk HPV using the FDA approved Digene Hybrid Capture II kit, in the Diagnostic Molecular Oncology Lab at [facility]. This test can detect HPV [...] abnormality. We endorse the recommendations of the [place] Society for Colposcopy and Cervical Pathology for [...] high complexity clinical laboratory testing. Edited by: [id number] - 1324 BW-SCRPT6 [facility] Diagnosis ThinPrep Pap Test Adequacy: Satisfactory for evaluation Interpretation: Negative for Intraepithelial Lesion or Malignancy Remarks/Recommenda tions: This is the result of a morphological screening test with an inherent possibility of a false negative interpretation. This Pap test was examined in accordance with the [facility] Cytopathology Laboratory written policy, which incorporates all CLIA mandates. Screening guidelines can be found in Am J Clin Pathol 2012;137:516-542. We endorse the practice guidelines developed by ASCCP and published in the Journal Lower Genital Tract Disease 17(5):S1-S27 (2013). This Pap test was examined by the ThinPrep Imaging System, [employer], [place], [place]. - High risk HPV DNA subtypes: NEGATIVE Edited by: [id number] - 1324 -SCRPT6 [id number] - [address] [facility] Gynecologic Clinical Data Specimen source:, THINPREP (CERVICAL AND ENDOCERVICAL) [facility] Gynecologic Clinical Data Gynecologic findings:, POST MENOPAUSAL [facility] Pathology Codes Client Order Code:, TPHGS3 [facility] Pathology Codes Bill Type:, 3RD [employer] [facility] Completed Report [id number] HPV, HIGH RISK TYPES 1 [facility] Marker 1 TOR GOMES [facility] - [facility] Marker 2 SHLOMO, NEGATIVE [facility] ANATOMIC PATHOLOGY - [facility] Marker 3 NILM,NILM [facility] Marker 4 RIM,RECEIVED IN MOLECULAR [facility] Marker 5 CRISTY GHOSH-ANDI [facility] Cc Results To COMPA Bishop CORD TIRE BUILDER [id number] JOHNNY SIU [id number] [facility] Signature REPORT SIGNED: TOR LAURA 06/29/14 [facility] Sign Out Audit TOR LAURA [id number] FINAL [facility] [id number] [facility] Cytology / Unknown 10:55 AM EDT 06/20/2014 10:55 AM EDT us Juliet Napier MD LAB HISTORICAL RESULT S Final Result [facility] [address] [place] [id number], [place] * DEXA Bone Density (06/16/2014 1:02 [...] Hepatitis C Antibody NON-REACTI VE NON-REACT CRISTINA [facility] Signal To Cut-Off 0.06 <1.00 [facility] 03/03/2014 2:31 PM EST 03/03/2014 3:50 PM EST Jessi Garcia LAB BLOOD ORDERABLES Final Resul t ENEIDA MCGARRY from Last 3 Months or Most Recently Relevant to Health Maintenance Insurance [place] [address] [employer] Advance Directives Documents on File Type Date Recorded Patient Shopper Marketing Manager Expl anation Advance Directive 09/12/2014 12:[address] [facility] dical Dec Making (Adv.Dir) Care Teams Oil Field Worker Relationship Specialty Start Date End Date Barbara Victor [address] [place] [address] dr Supa [place], [place] [address] PCP - General Internal Medicine 06/24/17
--- OUTSIDE RECORDS SUMMARY | 2024-10-19 07:31 | XMS_ITS | Encounter Summary ---
Author Organization [facility] Address [address] [place] [address] Care Team Providers Care Public Services Librarian Name Role Phone Barbara Victor Primary Care Provider [phone] Encounter Details Date Type Department Care Team (Late st Contact Info) Description 07/02/2016 Orders Only [facility] [address] [address] 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 MD [address] [place] [address] Social History Tobacco Use Types Packs/Day Years [...] on filedocumented in this encounter Care Teams Public Services Librarian Relationship Specialty Start Date End Date Barbara Victor [address] [place] [address] [place] [address] PCP - General Internal Medicine 06/24/17 documented as of this encounter
--- OUTSIDE RECORDS SUMMARY | 2024-10-19 07:31 | XMS_ITS | Patient Health Record ---
[facility] Address [address] [place] [address] Care Team Providers Care Project Engineer Name Role Phone Barbara Victor Primary Care Provider Sergio Montelongo Unavailable [phone] Allergies Allergen (clinical drug ingredient) Drug/Non Drug [...] Problem Acquired hammer toe of right foot (83426941627195 05) Other hammer toe(s) (acquired), right foot (M20.41) Active confirmed Problem Type 2 diabetes mellitus with peripheral angiopathy (151039599) Type 2 diabetes mellitus with diabetic peripheral angiopathy without gangrene (E11.51) Active confirmed Problem Acquired hammer toe of left foot (37224545197070 03) Other hammer toe(s) (acquired), left foot (M20.42) Active confirmed Vital Signs Blood pressure diastolic 60 mm Hg 08/20/2024 Height 5ft2.5in in 08/20/2024 Blood pressure systolic 126 mm Hg 08/20/2024 Weight 163 lbs 08/20/2024 BMI 29.33 kg/m2 08/20/2024 Procedures Procedure Date Ordered Date Performed Result Body Sit e 37169-HKNUAMY NAIL, 6 OR MORE 11/25/2023 N/A 92194-HPBW SKIN LESIONS, OVER 4 11/25/2023 N/A 01238-HVMDNRQ NAIL, 6 OR MORE 01/30/2024 N/A 25388-RRDI SKIN LESIONS, OVER 4 01/30/2024 N/A 56737-DGRHJAJ NAIL, 6 OR MORE 04/02/2024 N/A 83225-KJWG SKIN LESIONS, OVER 4 04/02/2024 N/A 35162-PMHZMOV NAIL, 6 OR MORE 06/11/2024 N/A 90540-GWCI SKIN LESIONS, OVER 4 06/11/2024 N/A 89302-GCPRWMN NAIL, 6 OR MORE 08/20/2024 N/A 68501-GAHF SKIN LESIONS, OVER 4 08/20/2024 N/A Encounters Encounter Location Date Provider Diagnosis [address] [address] 11/25/2023 Sergio Malik Type 2 diabetes mellitus with diabetic peripheral angiopathy without gangrene E11.51 ; Tinea unguium B35.1 ; Pain in right toe(s) M79.674 and Pain in left toe(s) M79.[address] [address] 01/30/2024 Sergio Malik Type 2 diabetes mellitus with diabetic peripheral angiopathy without gangrene E11.51 ; Tinea unguium B35.1 ; Pain in right toe(s) M79.674 and Pain in left toe(s) M79.[address] [address] 04/02/2024 Sergio Helena Type 2 diabetes mellitus with diabetic peripheral angiopathy without gangrene E11.51 ; Tinea unguium B35.1 ; Pain in right toe(s) M79.674 ; Pain in left toe(s) M79.675 ; Other hammer toe(s) (acquired), right foot M20.41 and Other hammer toe(s) (acquired), left foot M20.[address] [address] 06/11/2024 Sergio Malik Type 2 diabetes mellitus with diabetic peripheral angiopathy without gangrene E11.51 ; Tinea unguium B35.1 ; Pain in right toe(s) M79.674 and Pain in left toe(s) M79.[address] [address] 08/20/2024 Sergio Malik Type 2 diabetes mellitus with diabetic peripheral angiopathy without gangrene E11.51 ; Tinea unguium B35.1 ; Pain in right toe(s) M79.674 and Pain in left toe(s) M79.[address] [address] 11/25/2023 Sergio Loounier Assessments Encounter Date Diagnosis [...] Treatment Pending Test Test Name Order Date 85616-IXWVQLT NAIL, 6 OR MORE 12/10/2019 60466-KZUUXJI NAIL, 6 OR MORE 02/29/2020 79037-ELFESVD NAIL, 6 OR MORE 05/30/2020 44200-XTKYADN NAIL, 6 OR MORE 08/29/2020 17722-XLXFIMI NAIL, 6 OR MORE 11/28/2020 66744-GYTCBRT NAIL, 6 OR MORE 03/06/2021 40750-QINGUFP NAIL, 6 OR MORE 06/08/2021 93027-WDLSSAT NAIL, 6 OR MORE 09/11/2021 95755-JUIURDW NAIL, 6 OR MORE 12/11/2021 94553-PKFYVKF NAIL, 6 OR MORE 02/15/2022 12920-IGYVCZS NAIL, 6 OR MORE 05/28/2022 61806-CGJPTIE NAIL, 6 OR MORE 08/16/2022 54534-FYBJCAJ NAIL, 6 OR MORE 11/05/2022 15738-QCIMNZH NAIL, 6 OR MORE 01/07/2023 95423-JEDMFOI NAIL, 6 OR MORE 03/11/2023 80571-MUINNYC NAIL, 6 OR MORE 05/13/2023 00751-WYDLLTC NAIL, 6 OR MORE 07/15/2023 03537-JHQCHOT NAIL, 6 OR MORE 09/23/2023 33785-GZNWPQA NAIL, 6 OR MORE 11/25/2023 00680-KMTUMHP NAIL, 6 OR MORE 01/30/2024 14945-ODESVNI NAIL, 6 OR MORE 04/02/2024 99822-ZSGQCJY NAIL, 6 OR MORE 06/11/2024 10199-YCHSTSO NAIL, 6 OR MORE 08/20/2024 50120-OLEG SKIN LESIONS, OVER 4 08/21/19 36793-MNCG SKIN LESIONS, OVER 4 06/12/19 55922-QMLO SKIN LESIONS, OVER 4 04/02/19 25 17282-ARVQ SKIN LESIONS, OVER 4 01/30/20 24 35592-CCTA SKIN LESIONS, OVER 4 11/25/19 24 50054-MZGL SKIN LESIONS, OVER 4 09/23/19 24 17489-ZRIY SKIN LESIONS, OVER 4 07/15/19 24 64659-MVDC SKIN LESIONS, OVER 4 05/13/19 24 52897-POEL SKIN LESIONS, OVER 4 03/11/19 24 33421-VITT SKIN LESIONS, OVER 4 01/08/20 23 70180-WLGN SKIN LESIONS, OVER 4 11/06/19 23 74324-STGY SKIN LESIONS, OVER 4 08/17/19 23 93248-KJNF SKIN LESIONS, OVER 4 05/29/19 23 38302-YHFW SKIN LESIONS, OVER 4 02/15/19 23 03957-BWJK SKIN LESIONS, OVER 4 12/12/19 09228-JOGU SKIN LESIONS, OVER 4 09/12/19 34622-YBVQ SKIN LESIONS, OVER 4 06/09/19 22 71638-WWIS SKIN LESIONS, OVER 4 03/06/19 22 27820-ESOC SKIN LESIONS, OVER 4 11/29/19 72801-SLAT SKIN LESIONS, OVER 4 08/30/19 13283-MSTU SKIN LESIONS, OVER 4 04/20/20 21 82500-BIOI SKIN LESIONS, OVER 4 02/28/19 21 48910-PQWS SKIN LESIONS, OVER 4 12/10/19 20 Next Appt Details Provider Name:Sergio Malik , 10/29/2024 08:45:00 AM, [address] [place] [address], [phone], Provider Name:Sergio Malik , 01/11/2025 08:45:00 AM, [address] [place] [address], [phone], Insurance Providers Payer Name Payer Address Payer Phone Subscriber Number Group Number Insured Name Patient Relationship to Insured Coverage Start Date Coverage End Date [employer] Benefits [address] [address] [place] [address] [id number] Joanna Tse Self - patient is the insured Medical (General) History Medical History History ICD Code Rheumatoid Arthritis Cancer - Thyroid High blood pressure Rheumatic fever Chicken pox Bone implants/screws CAD type II diabetes Surgical History Surgery Date(Month/Year) Thyroid Surgery 04/26,11/09/21 Broken wrist 05/25 bunion Surgery 2008 1984,1986 Right quad rupture repair 07/23/23 hysterectomy 06/09/2023
--- OUTSIDE RECORDS SUMMARY | 2024-10-19 07:32 | XMS_ITS | Encounter Summary ---
Author Organization [facility] Address [address] [place] [address] Care Team Providers Care Press Assistant Name Role Phone Barbara Victor Primary Care Provider [phone] Encounter Details Date Type Department Care Team (Late st Contact Info) Description 09/24/2016 Orders Only [facility] [address] [address] 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 MD [address] [place] [address] Social History Tobacco Use Types Packs/Day Years [...] on filedocumented in this encounter Care Teams Press Assistant Relationship Specialty Start Date End Date Barbara Victor [address] [place] [address] [place] [address] PCP - General Internal Medicine 06/24/17 documented as of this encounter
--- NOTE | 2024-10-19 07:33 | MHC.OFFVIS ---
Vital Signs 10/19/24 07:39 Height 5 ft 2.5 in Weight 168 lb BMI 30.2 BP 120/70 Blood Pressure Location Lt brachial Position Sitting Pulse 65 Pulse Source Pulse Oximeter Pulse Oximetry (%) 96 Oxygen Delivery Method Room Air Intake Visit Reasons: follow up Intake Note: Patient presents for RA follow up. 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 Interval History: Patient last seen 06/17/2024 with me. - On Methotrexate 10mg weekly and folic acid - Since changing back to methotrexate has noticed improvement but continues to have hand and foot pain - Started on Simponi infusions since she had good benefit from Remicade Today - On methotrexate 10mg weekly, folic acid 1mg daily and simponi infusion 2mg/kg every 8 weeks - Has not noticed much improvement so far after starting simponi. Started 08/2024 - Still having achy joints especially her hands and feet Rheumatologic History: Patient diagnosed with rheumatoid arthritis in her 20s and has been on: Methotrexate: currently maintained onn 4-5 pills per week due to LFTs derangements Infliximab: Stopped due to change in Physician Humgerhard: Self discontinued due to burning at injection site Xeljanz: Discontined due to recurrent papillary thyroid cancer Plaquenil: Did not tolerate 12/2023. Noted on her C-spine that there was instability this was followed up with an MRI and then she was ultimately sent to a neurosurgeon who evaluated her. 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 Patient diagnosed with rheumatoid arthritis in her 20s and has been on: Methotrexate: currently maintained onn 4-5 pills per week due to LFTs derangements Infliximab: Stopped due to change in Physician Humira: Self discontinued due to burning at injection site Xeljanz: Discontined due to recurrent papillary thyroid cancer Plaquenil: Did not tolerate She is currently maintained on methotrexate 4-5 pills per week and takes diclofenac for breakthrough joint pain. She also has a secondary osteoarthritis on top of her rheumatoid arthritis. Currently she states that she is doing overall well does not have any prolonged morning stiffness but has frequent flares of her disease requiring her to take diclofenac. 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 History of radioactive iodine thyroid ablation History of hyperparathyroidism Postoperative hypothyroidism Vitamin D deficiency Thyroid cancer Type 2 diabetes mellitus with hyperglycemia Hypothyroid Obesity (BMI 30-39.9) Parotitis History of thyroid cancer Rheumatoid arthritis Hypercholesterolemia Hypertension Insomnia Surgical History History of hernia repair H/O knee surgery History of hysterectomy History of hysteroscopy History of thyroid surgery History of parathyroid surgery H/O wrist surgery History of tonsillectomy History of section Family History Father CAD (coronary artery disease) Mother Dementia CAD (coronary artery disease) Sister Breast cancer Depression Social History Housing: House Are you a primary home health care worker to a significant other at home: No Do you presently have visiting nurse or other home services: No Alcohol intake: current Alcohol intake frequency: holidays/special occasions only Patient Tobacco Use Status: Never used Tobacco Tobacco use type: Cigarette e-Cigarette/Vaping Use: Never Used Second Hand Smoke Exposure: No service: No Current occupational status: employed Current occupational exposures/hazards: No Cognitive needs: No Hearing needs: No Vision needs: Yes Female Reproductive History Menstrual Age of Menarche: 12 Review of Systems Const Details: Review of Systems Constitutional: Denies fever, chills, weight loss ENT: Denies vision changes, eye pain or eye redness, dental caries, dry mouth GI: Denies nausea, vomiting, diarrhea, abdominal pain, change in BM Pulm: Denies SOB, WU, hemoptysis, wheezing Cards: Denies chest pain, palpitations Skin: Denies Raynaud's, rash, nail changes, photosensitivity, SLICING MACHINE OPERATOR: Denies headaches, weakness, paresthesias, recurrent falls MSK: as per HPI All other systems reviewed and are unremarkable except noted above Physical Exam Exam Exam: Vital signs reviewed Physical Examination CONSTITUITIONAL Patient alert and cooperative. Well appearing and in no apparent painful distress MSK Hands Right Hand: Able to make a fist. TTP of the 1st and 2nd MCPs. No swelling. Also mild TTP of scattered PIPs Left Hand: Able to make a fist. TTP of the 1st and 2nd MCPs. No swelling. Also mild TTP of scattered PIPs Wrists Right Wrist: Decreased ROM with synovial fullness and TTP Left Wrist: Decreased ROM. No TTP Elbows Right Elbow: Full ROM. No swelling or TTP. No TTP of the medial epicondyle. No TTP of the lateral epicondyle Left Elbow: Full ROM. No swelling or TTP. No TTP of the medial epicondyle. No TTP of the lateral epicondyle Shoulders Right shoulder: No swelling noted. No TTP of the AC joint. No TTP of the subacromial bursa. No TTP of the posterior shoulder Left shoulder: No swelling noted. No TTP of the AC joint. No TTP of the subacromial bursa. No TTP of the posterior shoulder Knees Right knee: Full ROM. No swelling noted. No TTP of the knee joint line. No TTP of pes anserine bursa Left knee: Full ROM. No swelling noted. No TTP of the knee joint line. No TTP of pes anserine bursa. Ankles Right ankle: Good ankle dorsiflexion and plantar flexion. No swelling. No TTP of the ankle joint Left ankle: Good ankle dorsiflexion and plantar flexion. No swelling. No TTP of the ankle joint Feet Right foot: Positive squeeze test with hallux valgus deformity Left foot: Positive squeeze test with hallux valgus deformity Tender points? No tenderness to palpation of the bilateral trapezius, supraspinatus, anterior costochondral junctions, bilateral suboccipital muscle insertions SKIN No rashes Vital Signs: Last Vital Signs Pulse 65 10/19/24 07:39 BP 120/70 10/19/24 07:39 Pulse Ox 96 10/19/24 07:39 Oxygen Delivery Method Room Air 10/19/24 07:39 BMI result Body Mass Index 30.2 Results Reviewed Results Reviewed: Laboratory Tests 09/17/24 10/07/24 07:38 06:51 WBC 4.5 L RBC 4.79 Hgb 15.2 Hct 44.1 Plt Count 197 ESR 4 Sodium 138 Potassium 4.7 Chloride 109 H Carbon Dioxide 20 L BUN 31 H Creatinine 1.53 H 1.35 Estimated GFR 34 39 AST 21 ALT 37 H C-Reactive Protein 0.40 25-OH Vitamin D Total 40.9 Rheumatology Labs 12/19/23 08:41 Rheumatoid Factor 26.8 H Cycl Citrul Peptide IgG 196 H Infectious serologies 10/07/24 06:51 Hepatitis A IgM Ab Nonreactive Hep Bs Antigen Negative Hep Bs Antibody NONREACTIVE Hep B Core Total Ab Nonreactive Hepatitis C Ab (EIA) Nonreactive TB Test (T-Spot) Com Negative DEXA 12/2023 FINDINGS: LEFT FEMUR, NECK: Current: BMD 0.862 g/cm2, Z-score -0.1, T-score -1.3, osteopenia. Prior: BMD 0.857 g/cm2. Baseline: BMD 0.865 g/cm2. LEFT FEMUR, TOTAL: Current: BMD 0.897 g/cm2, Z-score 0.0, T-score -0.9, normal, 3.3% decrease from previous, 3.0% decrease from baseline (<5% change is not significant). Prior: BMD 0.928 g/cm2. Baseline: BMD 0.925 g/cm2. AP SPINE L1-L3 (excluding L4): The data of L1-L4 has been changed to exclude the L4 vertebral body, because at this level may cause overestimation of lumbar spine density. Current: BMD 1.200 g/cm2, Z-score 1.4, T-score 0.3, normal, 2.6% decrease from previous, 0.3% decrease from baseline (<5% change is not significant). Prior: BMD 1.232 g/cm2. Baseline: BMD 1.204 g/cm2. Assessment & Plan Assessment & Plan (1) Rheumatoid arthritis: Comment: Diagnosed in her 20s Methotrexate: currently maintained onn 4-5 pills per week due to LFTs derangements Infliximab: Stopped due to change in Physician Humira: Self discontinued due to burning at injection site Xeljanz: Discontinued due to recurrent papillary thyroid cancer Plaquenil: Did not tolerate Added simponi 08/2024 Code(s): M06.9 - Rheumatoid arthritis, unspecified Category: Medical Qualifiers: Rheumatoid arthritis location: multiple sites Rheumatoid factor presence: with rheumatoid factor Qualified Code(s): M05.79 - Rheumatoid arthritis with rheumatoid factor of multiple sites without organ or systems involvement Plan: #Seropositive Erosive RA Patient is a 64 y.o. female with seropositive erosive rheumatoid arthritis. Repeat x-rays done 12/2023 showed that her erosions are stable and there has not been any progression. Despite being on methotrexate she continues to have moderate disease activity with tender and swollen joints on exam. Marissa added after last visit. She has not noticed much improvement. Discussed going back to Remicade which worked well for her in the past but patient would like to continue this medication and see if there will be additional efficacy. 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 Limit alcohol and avoid Bactrim ? 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 biologic Plan: #Long-term Use of TNF Inhibitors: Golimumab Discussed with the patient the benefits and risks of TNF inhibitors for the management of the rheumatic condition Benefits include reduce pain, maintenance of remission and reduction of flares as well as progression of the disease Risks include injection sites/infusion reactions, serious infections (such as bacterial infections, opportunistic infections), malignancy, delaminating syndromes, autoimmune phenomena, CHF exacerbations, palmar plantar psoriasis and cytopenias Recommended rotating injection sites, and holding medication during and for up to 1 week after resolution of a febrile illness or open skin wound Plan I spent 35 minutes reviewing the record and labs, taking a history, examining the patient, discussing the treatment plan, and documenting in the medical record Coding Level of Care Code Est Pt Level 4 (04948) Complex EM visit Add On G2211 Diagnoses Rheumatoid arthritis involving multiple sites with positive rheumatoid factor M05.79 Rheumatoid arthritis location: multiple sites Rheumatoid factor presence: with rheumatoid factor Methotrexate, care home, 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 Encounter for monitoring golimumab therapy Z51.81; Z79.620
[2024-10-19 07:39] VITALS: BP 120/70; PULSE 65; O2SAT 96; BMI 30.2
== END 2024-10-19 08:09 | disposition home or self-care (01) ==
LOC: HO.RHES 07:30
PROVIDERS: PCP Internal Medicine; Visit Provider Student in an Organized Health Care Education/Training Program
DX: M05.79 Rheumatoid arthritis with rheumatoid factor of multiple sites without organ or systems involvement (principal); Z79.631 Long term (current) use of antimetabolite agent; Z51.81 Encounter for therapeutic drug level monitoring; Z79.620 Long term (current) use of immunosuppressive biologic
CPT/HCPCS: 99214

== ENCOUNTER 2024-10-28 07:25 | Outpatient (REF) | payer OTHER, SELFPAY ==
--- OUTSIDE RECORDS SUMMARY | 2024-06-22 05:30 | XMS_ITS ---
Author Organization [facility] Address [address] [place] [address] Care Team Providers Care Check Totaler Name Role Phone Barbara Victor Primary Care Provider Unavailabl Sergio Zendejas Unavailable [phone] REASON FOR VISIT Seen Sooner Encounters Encounter Location Date Provider Diagnosis [address] [address] 06/22/2024 Sergio Malik Plan Of Treatment Next Appt Details Provider Name:Sergio Malik , 10/29/2024 08:45:00 AM, [address] [place] [address], [phone], Provider Name:Sergio Malik , 01/11/2025 08:45:00 AM, [address] [place] [address], [phone], Progress Notes * Joanna TSE MDOB:1960 (64 yo F)Acc No.[id number]:06/22/2024 Progress Note Patient: Joanna WEBSTER Provider: Taye Malik DPM :1960 A ge:63 Y S ex:Female Date:06/22/2024 Address:[address] [place] [address] [facility] , [place], [place] Pcp:Lorenver Po Subjective: * Chief Complaints: * 1 . Seen Sooner. * Medical History: Objective: * Vitals: Assessment: Plan: * Treatment: * Images: * The named appointment provid er may or may not be the originator of this progress note, and it is not deemed complete until electronically signed by the appointment provider. Sign off status: Pending * Provider: Taye Malik DPM Date: 0 06/22/2024 Generated for Joao patterson/Erin/Laxmi on: 0 10/28/2024 07:29 AM EDT
--- OUTSIDE RECORDS SUMMARY | 2024-10-28 07:29 | XMS_ITS | Encounter Summary ---
Author Organization [facility] Address [address] [place] [address] Care Team Providers Care Shotgun Shell Assembly Machine Operator Name Role Phone ValenteBarbara Katelynn Primary Care Provider [phone] Reason for Visit * Reason Onset Date Comments Med Refill 03/30/2021 Encounter Details Date Type Department Care Team (Late st Contact Info) Description 03/30/2021 Telephone [facility] [address] [place] [address] Telephone Intake, Staff Med Refill Social History [...] not request PCP information rather they requested [facility] endo contact info and did not give a reason why. Since endo does not prescribe the med, nurse requested that pt call [employer] to resolve issue. * Telephone Encounter - [...] Pt of Dr. Franklin Almonte calling from [employer] This is her second attempt at trying to get a renewal for pt (Onglyza 5mg) Please call or fax to: Please: use reference #[id number] documented in this encounter Plan of Treatment Not on file documented as of this encounter Visit Diagnoses Not on filedocumented in this encounter Care Teams Shotgun Shell Assembly Machine Operator Relationship Specialty Start Date End Date Barbara Victor [address] [place] [address] dr Supa [place], [place] [address] PCP - General Internal Medicine 06/24/17 documented as of this encounter
--- OUTSIDE RECORDS SUMMARY | 2024-10-28 07:29 | XMS_ITS | Encounter Summary ---
Author Organization [facility] Address [address] [place] [address] Care Team Providers Care Barkeeper Name Role Phone Barbara Victor Primary Care Provider [phone] Encounter Details Date Type Department Care Team (Late st Contact Info) Description 07/02/2016 Orders Only [facility] [address] [address] 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 MD [address] [place] [address] Social History Tobacco Use Types Packs/Day Years [...] on filedocumented in this encounter Care Teams Barkeeper Relationship Specialty Start Date End Date Barbara Victor [address] [place] [address] [place] [address] PCP - General Internal Medicine 06/24/17 documented as of this encounter
--- OUTSIDE RECORDS SUMMARY | 2024-10-28 07:29 | XMS_ITS | Encounter Summary ---
Author Organization [facility] Address [address] [place] [address] Care Team Providers Care Flooring Grader Name Role Phone Barbara Victor Primary Care Provider [phone] Encounter Details Date Type Department Care Team (Late st Contact Info) Description 03/25/2016 Orders Only [facility] [address] [address] 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 MD [address] [place] [address] Social History Tobacco Use Types Packs/Day Years [...] on filedocumented in this encounter Care Teams Flooring Grader Relationship Specialty Start Date End Date Barbara Victor [address] [place] [address] [place] [address] PCP - General Internal Medicine 06/24/17 documented as of this encounter
--- OUTSIDE RECORDS SUMMARY | 2024-10-28 07:29 | XMS_ITS | Clinical Summary ---
Author Organization [facility] Address [address] [place] [address] Care Team Providers Care Jewel Stripper Name Role Phone Anderson Sanchez Primary Care Provider [phone] Allergies No known active allergies Medications Diclofenac-Mis [...] Pap Smear Discontinued Zoster (Zostavax) Discontinued Insurance [facility] * Guarantor: [employer] Account Type Relation to Patient Date of Phone Billing Address [employer] [address] [place] [address] [employer] Care Teams Jewel Stripper Relationship Specialty Start Date End Date Anderson Sanchez [address] [address] PCP - General Rheumatology 06/10/12
--- OUTSIDE RECORDS SUMMARY | 2024-10-28 07:29 | XMS_ITS | Encounter Summary ---
Author Organization [facility] Address [address] [place] [address] Care Team Providers Care Curriculum And Instruction Director Name Role Phone Barbara Victor Primary Care Provider [phone] Encounter Details Date Type Department Care Team (Late st Contact Info) Description 09/24/2016 Orders Only [facility] [address] [address] 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 MD [address] [place] [address] Social History Tobacco Use Types Packs/Day Years [...] on filedocumented in this encounter Care Teams Curriculum And Instruction Director Relationship Specialty Start Date End Date Barbara Victor [address] [place] [address] [place] [address] PCP - General Internal Medicine 06/24/17 documented as of this encounter
--- OUTSIDE RECORDS SUMMARY | 2024-10-28 07:29 | XMS_ITS | Patient Health Record ---
Author Organization [facility] Address [address] [place] [address] Care Team Providers Care Internal Corrosion Specialist Name Role Phone Barbara Victor Primary Care Provider Sergio Montelongo Unavailable [phone] Allergies Allergen (clinical drug ingredient) Drug/Non Drug [...] Problem Acquired hammer toe of right foot (55878319616782 05) Other hammer toe(s) (acquired), right foot (M20.41) Active confirmed Problem Type 2 diabetes mellitus with peripheral angiopathy (913807345) Type 2 diabetes mellitus with diabetic peripheral angiopathy without gangrene (E11.51) Active confirmed Problem Acquired hammer toe of left foot (98890750439209 03) Other hammer toe(s) (acquired), left foot (M20.42) Active confirmed Vital Signs Blood pressure diastolic 60 mm Hg 08/20/2024 Height 5ft2.5in in 08/20/2024 Blood pressure systolic 126 mm Hg 08/20/2024 Weight 163 lbs 08/20/2024 BMI 29.33 kg/m2 08/20/2024 Procedures Procedure Date Ordered Date Performed Result Body Sit e 14312-ORDYNOE NAIL, 6 OR MORE 11/25/2023 N/A 69246-NPNC SKIN LESIONS, OVER 4 11/25/2023 N/A 89728-LQMSYSU NAIL, 6 OR MORE 01/30/2024 N/A 49628-HRTE SKIN LESIONS, OVER 4 01/30/2024 N/A 07714-HPGCGFL NAIL, 6 OR MORE 04/02/2024 N/A 09082-AGRO SKIN LESIONS, OVER 4 04/02/2024 N/A 78743-PHRKSHF NAIL, 6 OR MORE 06/11/2024 N/A 16671-NADC SKIN LESIONS, OVER 4 06/11/2024 N/A 06957-FXZAYVK NAIL, 6 OR MORE 08/20/2024 N/A 03980-KDBA SKIN LESIONS, OVER 4 08/20/2024 N/A Encounters Encounter Location Date Provider Diagnosis [address] [address] 11/25/2023 Sergio Malik Type 2 diabetes mellitus with diabetic peripheral angiopathy without gangrene E11.51 ; Tinea unguium B35.1 ; Pain in right toe(s) M79.674 and Pain in left toe(s) M79.[address] [address] 01/30/2024 Sergio Malik Type 2 diabetes mellitus with diabetic peripheral angiopathy without gangrene E11.51 ; Tinea unguium B35.1 ; Pain in right toe(s) M79.674 and Pain in left toe(s) M79.[address] [address] 04/02/2024 Sergio Helena Type 2 diabetes mellitus with diabetic peripheral angiopathy without gangrene E11.51 ; Tinea unguium B35.1 ; Pain in right toe(s) M79.674 ; Pain in left toe(s) M79.675 ; Other hammer toe(s) (acquired), right foot M20.41 and Other hammer toe(s) (acquired), left foot M20.[address] [address] 06/11/2024 Sergio Malik Type 2 diabetes mellitus with diabetic peripheral angiopathy without gangrene E11.51 ; Tinea unguium B35.1 ; Pain in right toe(s) M79.674 and Pain in left toe(s) M79.[address] [address] 08/20/2024 Sergio Malik Type 2 diabetes mellitus with diabetic peripheral angiopathy without gangrene E11.51 ; Tinea unguium B35.1 ; Pain in right toe(s) M79.674 and Pain in left toe(s) M79.[address] [address] 11/25/2023 Sergio Loounier Assessments Encounter Date Diagnosis [...] Treatment Pending Test Test Name Order Date 17980-JTZWYFJ NAIL, 6 OR MORE 12/10/2019 84597-MQBFWIY NAIL, 6 OR MORE 02/29/2020 39885-ABQSPYF NAIL, 6 OR MORE 05/30/2020 54120-OPRCXTS NAIL, 6 OR MORE 08/29/2020 81012-CHBTNAQ NAIL, 6 OR MORE 11/28/2020 66569-RNDJTVH NAIL, 6 OR MORE 03/06/2021 94488-OGVIGIL NAIL, 6 OR MORE 06/08/2021 01136-ZRELRMX NAIL, 6 OR MORE 09/11/2021 51157-PRGPYCW NAIL, 6 OR MORE 12/11/2021 34624-NUDPYQZ NAIL, 6 OR MORE 02/15/2022 10100-NPLLKNJ NAIL, 6 OR MORE 05/28/2022 99422-KCYFRDA NAIL, 6 OR MORE 08/16/2022 78681-OXGVTHO NAIL, 6 OR MORE 11/05/2022 74123-UMGQNYC NAIL, 6 OR MORE 01/07/2023 68349-TLXTEHO NAIL, 6 OR MORE 03/11/2023 97252-XXLPWFR NAIL, 6 OR MORE 05/13/2023 85544-YTDDZLX NAIL, 6 OR MORE 07/15/2023 50902-WPUWMMW NAIL, 6 OR MORE 09/23/2023 76720-ILZUVQB NAIL, 6 OR MORE 11/25/2023 89830-OSPQRVC NAIL, 6 OR MORE 01/30/2024 01515-WQBUQUQ NAIL, 6 OR MORE 04/02/2024 55984-UGPGRBC NAIL, 6 OR MORE 06/11/2024 40519-LNZGJUY NAIL, 6 OR MORE 08/20/2024 65396-BYJN SKIN LESIONS, OVER 4 08/21/19 05943-COSH SKIN LESIONS, OVER 4 06/12/19 96617-EOIP SKIN LESIONS, OVER 4 04/02/19 25 91169-JOXK SKIN LESIONS, OVER 4 01/30/20 24 13422-KQVK SKIN LESIONS, OVER 4 11/25/19 24 48389-XQLO SKIN LESIONS, OVER 4 09/23/19 24 14466-XJOY SKIN LESIONS, OVER 4 07/15/19 24 23050-QHVH SKIN LESIONS, OVER 4 05/13/19 24 64206-SJGZ SKIN LESIONS, OVER 4 03/11/19 24 04219-LXDG SKIN LESIONS, OVER 4 01/08/20 23 78281-XZEB SKIN LESIONS, OVER 4 11/06/19 23 61055-OTXS SKIN LESIONS, OVER 4 08/17/19 23 31072-TWLR SKIN LESIONS, OVER 4 05/29/19 23 15532-OCEO SKIN LESIONS, OVER 4 02/15/19 23 92251-JGSX SKIN LESIONS, OVER 4 12/12/19 89559-ARLL SKIN LESIONS, OVER 4 09/12/19 28831-ZOJF SKIN LESIONS, OVER 4 06/09/19 22 09339-FTBV SKIN LESIONS, OVER 4 03/06/19 22 59390-CYMU SKIN LESIONS, OVER 4 11/29/19 73574-HPJD SKIN LESIONS, OVER 4 08/30/19 79339-LDQO SKIN LESIONS, OVER 4 04/20/20 21 98597-NSLS SKIN LESIONS, OVER 4 02/28/19 21 75962-JJZS SKIN LESIONS, OVER 4 12/10/19 20 Next Appt Details Provider Name:Sergio Malik , 10/29/2024 08:45:00 AM, [address] [place] [address], [phone], Provider Name:Sergio Malik , 01/11/2025 08:45:00 AM, [address] [place] [address], [phone], Insurance Providers Payer Name Payer Address Payer Phone Subscriber Number Group Number Insured Name Patient Relationship to Insured Coverage Start Date Coverage End Date [employer] Benefits [address] [address] [place] [address] [id number] Joanna Tse Self - patient is the insured Medical (General) History Medical History History ICD Code Rheumatoid Arthritis Cancer - Thyroid High blood pressure Rheumatic fever Chicken pox Bone implants/screws CAD type II diabetes Surgical History Surgery Date(Month/Year) Thyroid Surgery 04/26,11/09/21 Broken wrist 05/25 bunion Surgery 2008 1984,1986 Right quad rupture repair 07/23/23 hysterectomy 06/09/2023
--- OUTSIDE RECORDS SUMMARY | 2024-10-28 07:29 | XMS_ITS | Clinical Summary ---
Author Organization [facility] Address [address] [place] [address] Care Team Providers Care Motion Picture Critic Name Role Phone ValenteBarbara Katelynn Primary Care Provider [phone] Allergies Active Allergy Reactions Criticality Noted Date [...] in February. Rheumatoid arthritis 10/16/2008 Overview (11/01/2016): appraisal specialist Dr. 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 [...] complete this topic Procedures * Due to [place] [employer] law, this organization might not be sharing [...] to Health Maintenance Results * Due to [place] [employer] law, this organization might not be sharing negative HIV tests. * (ABNORMAL) Microalbumin/Creatinine Urine Ratio, Random (01/24/2020 9:14 AM EST) Microalbumin, Urine 5.0 mg/dL 01/24/2020 11:04 AM EST [facility] Creatinine, Urine 23 15 - 278 mg/dL 01/24/2020 11:04 AM EST [facility] Microalb/Creat Ratio, Random Urine 217.4(H) <30.0 mcg/mgCr 01/24/2020 11:04 AM EST [facility] Comment: Microalbumin Reference Range: Normal <30 mcg/mg Creatinine Microalbuminuria 30-300 mcg/mg Creatinine Clinical Albuminuria >300 mcg/mg Creatinine Reference: ADA Guideline. Diabetes Care. 2004;27 (suppl 1) Urine Voided urine specimen / Unknown Non-Blood Collection / Unknown 01/24/2020 9:14 AM EST 01/24/2020 10:30 AM EST us Meaghan Ziegler MD LAB URINE ORDERABLES Final Res ult [facility] [address] [place] [address], * (ABNORMAL) Basic Metabolic Panel, Outside Lab (08/30/2019) Potassium 4.9 Creatinine 1.45(H) mg/dL eGFR Non- 37(L) Blood Structure of peripheral vein / Unknown 08/30/2019 us Unknown Provider LAB BLOOD ORDERABLES Final R esult * (ABNORMAL) Hemoglobin A1c (05/28/2017 3:55 PM EDT) Hemoglobin A1C 7.6(H) <5.7 % of total Hgb 05/28/2017 10:49 PM EDT [facility] Comment: For someone without known diabetes, a [...] (MG/DL) 171 (calc) 05/28/2017 10:49 PM EDT [employer] [facility] eAG (MMOL/L) 9.5 (calc) 05/28/2017 10:49 PM EDT [employer] [facility] Blood specimen (specimen) Structure of peripheral vein / Unknown Venipuncture / Unknown 05/28/2017 3:55 PM EDT 05/28/2017 4:30 PM EDT Narrative [facility] 05/28/2017 10:49 PM EDT [facility] Received Date:[id number] Jose Manuel Bell MD LAB BLOOD ORDERABLES Final Re sult [facility] [address], [place] [address], [employer] [address], [place] [address], [place] [phone] * DIABETES EYE EXAM (07/31/2016 9:16 AM EDT) Eye Exam [id number] [facility] MANUAL RESULTS 07/31/2016 9:16 AM EDT us Benita Napier MD HEALTH MAINTENANCE Final Resul t Performing Organization Address City/[facility]/ZIP Co de Phone Number [facility] MANUAL RESULTS * MAMMOGRAPHY (05/15/2016 12:00 AM EDT) Mammogram Benign/ there are scattered areas of fibroglandular density . No significant change from prior study 2 OUTSIDE LABORATORY Anatomical Region Laterality Modality Other 05/15/2016 us Historical Conversion Provider HEALTH MAINTENANC E Final Result * Pap w/HPV (06/17/2014 10:55 AM EDT) Path Procedure TPGAS ([id number]) 1 HPVHR([id number]) 1 Edited by: [id number] - [address] [address] [id number] - 1324 [facility] Specimen Labeled As: 1 CERVICAL/ENDOCERVI MAKAYLA CYTO MATERIAL - Edited by: [id number] - 1057 HUGHER1 [facility] Additional Test Information Specimens were tested for high risk HPV using the FDA approved Digene Hybrid Capture II kit, in the Diagnostic Molecular Oncology Lab at [facility]. This test can detect HPV [...] abnormality. We endorse the recommendations of the [place] Society for Colposcopy and Cervical Pathology for [...] high complexity clinical laboratory testing. Edited by: [id number] - 1324 BW-SCRPT6 [facility] Diagnosis ThinPrep Pap Test Adequacy: Satisfactory for evaluation Interpretation: Negative for Intraepithelial Lesion or Malignancy Remarks/Recommenda tions: This is the result of a morphological screening test with an inherent possibility of a false negative interpretation. This Pap test was examined in accordance with the [facility] written policy, which incorporates all CLIA mandates. Screening guidelines can be found in Am J Clin Pathol 2012;137:516-542. We endorse the practice guidelines developed by ASCCP and published in the Journal Lower Genital Tract Disease 17(5):S1-S27 (2013). This Pap test was examined by the ThinPrep Imaging System, [employer], [place], [place]. - High risk HPV DNA subtypes: NEGATIVE Edited by: [id number] - 1324 -SCRPT6 [id number] - 6482 FERRAROK [facility] Gynecologic Clinical Data Specimen source:, THINPREP (CERVICAL AND ENDOCERVICAL) [facility] Gynecologic Clinical Data Gynecologic findings:, POST MENOPAUSAL [facility] Pathology Codes Client Order Code:, TPHGS3 [facility] Pathology Codes Bill Type:, 3RD CONSTITUTION PARTY BILLING [facility] Completed Report [id number] HPV, HIGH RISK TYPES 1 [facility] Marker 1 TOR [facility] Marker 2 SHLOMO, NEGATIVE [facility] Marker 3 NILM,NILM [facility] Marker 4 RIM,RECEIVED IN MOLECULAR [facility] Marker 5 CRISTY GHOSH-ANDI [facility] Cc Results To COMPA Bishop FOREIGN COLLECTION CLERK [id number] JOHNNY SIU [id number] [facility] Signature REPORT SIGNED: TOR LAURA 06/29/14 [facility] Sign Out Audit TOR LAURA [id number] FINAL [facility] [id number] [facility] Cytology / Unknown 10:55 AM EDT 06/20/2014 10:55 AM EDT us Juliet Napier MD LAB HISTORICAL RESULT S Final Result [facility] [address] [place] [id number], [place] * DEXA Bone Density (06/16/2014 1:02 [...] Hepatitis C Antibody NON-REACTI VE NON-REACT CRISTINA [facility] Signal To Cut-Off 0.06 <1.00 [facility] 03/03/2014 2:31 PM EST 03/03/2014 3:50 PM EST Jessi Garcia LAB BLOOD ORDERABLES Final Resul t ENEIDA MCGARRY from Last 3 Months or Most Recently Relevant to Health Maintenance Insurance [place] [address] [employer] Advance Directives Documents on File Type Date Recorded Patient Inspector Plating Expl anation Advance Directive 09/12/2014 12:00 AM [facility] dical Dec Making (Adv.Dir) Care Teams Motion Picture Critic Relationship Specialty Start Date End Date Barbara Victor [address] [place] [address] dr Supa Coawrt, [place] [address] PCP - General Internal Medicine 06/24/17
== END 2024-10-28 07:26 | disposition home or self-care (01) ==
LOC: HO.MAMMO 07:25
PROVIDERS: PCP Internal Medicine; Visit Provider Internal Medicine
DX: Z12.31 Encounter for screening mammogram for malignant neoplasm of breast (principal)
CPT/HCPCS: 77063; 77067

== ENCOUNTER → 2024-10-28 07:30 | Outpatient (BNV) | payer OTHER, SELFPAY | PROVIDERS: PCP Internal Medicine; Visit Provider Internal Medicine | DX: Z12.31 Encounter for screening mammogram for malignant neoplasm of breast (principal) | CPT/HCPCS: 77063; 77067 ==

== ENCOUNTER 2024-11-01 16:11 | Outpatient (AMB) | payer OTHER, SELFPAY ==
[2024-11-01 16:19] VITALS: BP 110/50; PULSE 59; RESP 18; TEMP 35.9; O2SAT 95
--- NOTE | 2024-11-01 16:19 | MHC.PC.OV ---
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 Required: No Accompanied by: Self / Same As Patient Allergies ciprofloxacin (Cipro) Allergy (Intermediate, Verified 11/01/24 16:20) rash amlodipine Adverse Reaction (Intermediate, Verified 11/01/24 16:20) swelling Tobacco use date assessed: 11/01/24 Fall risk assessment: No Falls in past year Last assessed Fall Risk: 11/01/24 Dental Screening Dental Screen Date: 11/01/24 Did you have a dental visit in the last 12 months?: Yes Did you have a dental problem in the last 6 months where you did not have access to dental care?: No Was dental information given to patient?: Patient has dentist [facility] Medical History Abdominal wall hernia Anterolisthesis of cervical spine Methotrexate, shelter, current use History of radioactive iodine thyroid ablation History of hyperparathyroidism Postoperative hypothyroidism Vitamin D deficiency Thyroid cancer Type 2 diabetes mellitus with hyperglycemia Hypothyroid Obesity (BMI 30-39.9) Parotitis History of thyroid cancer Rheumatoid arthritis Hypercholesterolemia Hypertension Insomnia Surgical History History of hernia repair H/O knee surgery History of hysterectomy History of hysteroscopy History of thyroid surgery History of parathyroid surgery H/O wrist surgery History of tonsillectomy History of section Family History Father CAD (coronary artery disease) Mother Dementia CAD (coronary artery disease) Sister Breast cancer Depression Social History Housing: House Are you a primary personal care home administrator to a significant other at home: No Do you presently have visiting nurse or other home services: No Alcohol intake: current Alcohol intake frequency: holidays/special occasions only Patient Tobacco Use Status: Never used Tobacco Tobacco use type: Cigarette e-Cigarette/Vaping Use: Never Used Second Hand Smoke Exposure: No service: No Current occupational status: employed Current occupational exposures/hazards: No Cognitive needs: No Hearing needs: No Vision needs: Yes Female Reproductive History Menstrual Age of Menarche: 12 Questionnaire Thrive Questionnaire Date Thrive assessed: 03/16/24 JAIRO-7 AMB Questionnaire JAIRO-7 Date JAIRO - 7 assessed: 03/16/24 Source: Developed by Drs. Miah Moreno, Katia Smith, Junior Alejo and colleagues, with an educational beth from [employer]. Physical exam (Primary Care) Vital Signs: Last Vital Signs Temp 96.6 F L 11/01/24 16:19 Pulse 59 11/01/24 16:19 Resp 18 11/01/24 16:19 BP 110/50 L 11/01/24 16:19 Pulse Ox 95 11/01/24 16:19 Oxygen Delivery Method Room Air 11/01/24 16:19 Tobacco/Smoking Status: Tobacco use Status Tobacco use date assessed 11/01/24 11/01/24 16:26 Patient Tobacco Use Status Never used Tobacco 11/01/24 16:26 Tobacco use type Cigarette 11/01/24 16:26 e-Cigarette/Vaping Use Never Used 11/01/24 16:26 Thrive Assessment: Date of Thrive Assessment Date Thrive assessed 03/16/24 11/01/24 16:26 Const General: alert; No acute distress Eyes Conjunctivae: conjunctivae normal Resp Auscultation: clear to auscultation bilaterally Cardio Rate: regular rate Rhythm: regular rhythm GI Inspection: Yes normal to inspection Extrem General: Yes normal to inspection and No edema Immunizations pneumoc 20-roseann conj-dip cr(PF) 0.5 mL IM syringe Performing Provider: Barbara Victor MD Performing [facility] Administered by: Ramila Suazo CMA on 11/01/24 17:18 Dose Route Admin Location Dispensed Lot Number Expiration Date [facility] Cardiovascular Lab Director 0.5 mL IM Left Deltoid 0.5 mL [id number] 11/09/25 0880-8225-91 [employer] Total Dispensed Waste 0.5 mL 0 % VIS Given Date VIS Provided VIS Publication Date 11/01/24 Single Vaccine 24 Eligibility Eligibility Date Funding Source Not [facility] Eligible 11/01/24 Private Coding Level of Care Code Est Pt Level 4 (07433) Complex EM visit Add On G2211 Diagnoses Essential hypertension I10 Hypertension type: essential hypertension Hypercholesterolemia E78.00 Type 2 diabetes mellitus with hyperglycemia, without long-term current use of insulin E11.65 Diabetes mellitus emc storage architect insulin use: without shelter use Postoperative hypothyroidism E89.0 Osteopenia of left hip M85.852 Laterality: left Osteopenia location: hip History of hyperparathyroidism Z86.39 Stage 3a chronic kidney disease N18.31 Chronic kidney disease stage 3 subtype: stage 3a (GFR 45-59) Rheumatoid arthritis involving multiple sites with positive rheumatoid factor M05.79 Rheumatoid arthritis location: multiple sites Rheumatoid factor presence: with rheumatoid factor Assessment & Plan Assessment & Plan (1) Hypertension: Code(s): I10 - Essential (primary) hypertension Category: Medical Qualifiers: Hypertension type: essential hypertension Qualified Code(s): I10 - Essential (primary) hypertension Plan: Continue with blood pressure medication. Decrease salt intake and exercise patient on lisinopril 10 mg once a day (2) Hypercholesterolemia: Code(s): E78.00 - Pure hypercholesterolemia, unspecified Category: Medical Plan: Avoid fried foods, chicken skin, eggs, butter margarine, pastries and meat. Be it pork or beef they have a lot of cholesterol on simvastatin 10 mg at bedtime (3) Type 2 diabetes mellitus with hyperglycemia: Comment: Pt has CKD stage 3, HTN, Hypercalcemia , Shanna and escobar eye Code(s): E11.65 - Type 2 diabetes mellitus with hyperglycemia Category: Medical Qualifiers: Diabetes mellitus shelter insulin use: without shelter use Qualified Code(s): E11.65 - Type 2 diabetes mellitus with hyperglycemia Plan: Decrease the amount of carbohydrate intake, pasta, bread, rice and potatoes are all sugar and that is aside from all the sweet stuff, remember that fruits are good but they are Sweet also. Hemoglobin A1c goal of less than 6.5 on Januvia metformin glimepiride Jardiance (4) Postoperative hypothyroidism: Code(s): E89.0 - Postprocedural hypothyroidism Category: Medical Plan: Continue with thyroid medication patient follows up with endocrinology history of thyroid cancer (5) Osteopenia: Comment: February 2019, 12/2023 Code(s): M85.80 - Other specified disorders of bone density and structure, unspecified site Category: Medical Qualifiers: Laterality: left Osteopenia location: hip Qualified Code(s): M85.852 - Other specified disorders of bone density and structure, left thigh Plan: Patient is being followed up by Endocrinology (6) History of hyperparathyroidism: Code(s): Z86.39 - Personal history of other endocrine, nutritional and metabolic disease Category: Medical Plan: Continue to follow-up with endocrinology (7) CKD (chronic kidney disease) stage 3, GFR 30-59 ml/min: Code(s): N18.30 - Chronic kidney disease, stage 3 unspecified Category: Medical Qualifiers: Chronic kidney disease stage 3 subtype: stage 3a (GFR 45-59) Qualified Code(s): N18.31 - Chronic kidney disease, stage 3a Plan: Keep well hydrated avoid NSAIDs (8) Rheumatoid arthritis: Comment: Diagnosed in her 20s Methotrexate: currently maintained onn 4-5 pills per week due to LFTs derangements Infliximab: Stopped due to change in Physician Humira: Self discontinued due to burning at injection site Xeljanz: Discontinued due to recurrent papillary thyroid cancer Plaquenil: Did not tolerate Added simponi 08/2024 Code(s): M06.9 - Rheumatoid arthritis, unspecified Category: Medical Qualifiers: Rheumatoid arthritis location: multiple sites Rheumatoid factor presence: with rheumatoid factor Qualified Code(s): M05.79 - Rheumatoid arthritis with rheumatoid factor of multiple sites without organ or systems involvement Plan: Continue on methotrexate and has been tried onSimponi Plan History of Present Illness The patient is a 64-year-old female presenting for a follow-up visit. She has a history of hypertension, hypercholesterolemia, rheumatoid arthritis, and diabetes mellitus. Her thyroid cancer was treated with a right selective neck resection in November 2021, resulting in postoperative hypothyroidism and hyperparathyroidism. She follows up with endocrinology for these conditions, with a TSH goal of 0.5 to 2 and a current levothyroxine dose of 100 mcg daily. The patient has chronic kidney disease and was last seen by nephrology in July. Her renal function was stable with a creatinine level of 1.35 as of October 07. She has a history of osteopenia and two previous wrist fractures. Her bone density was last assessed in December 2023. The patient underwent ventral hernia repair in April 2024 and right quadriceps repair in July 2023. She has been advised to limit alcohol and avoid NSAIDs due to her medical conditions. Her preventative care includes a mammogram due this month, a Cologuard test completed in September 2024, and a shingles vaccination received recently. Health Maintenance - Mammogram due this month - Bone density test completed in December 2023 - Cologuard test completed in September 2024 - Shingles vaccination received recently - Pneumonia vaccination recommended Social History - Exercise: Plans to walk extensively during a trip to [place] [employer], averaging 20,000 steps a day - Diet: Following Weight Watchers program - Substance Use: Advised to limit alcohol consumption Review of Systems - Endocrine: Reports stable thyroid function with current medication regimen - Musculoskeletal: Reports no significant joint improvement with current rheumatoid arthritis treatment - Renal: Denies any new symptoms related to chronic kidney disease - General: Reports occasional swelling, particularly later in the day Physical Exam Results - Labs: Normal blood count with mild leukopenia, creatinine 1.35, glucose 222 mg/dL, TSH 0.02 - Tests: Bone density test completed in December 2023, Cologuard test completed in September 2024 Plan Patient was informed and verbally consented to the use of an ambient scribe for clinic note documentation during this visit. 1. Hypertension The patient is currently on lisinopril 10 mg once daily for hypertension management. 2. Hypercholesterolemia The patient is on simvastatin 10 mg at bedtime for cholesterol management. 3. Rheumatoid Arthritis The patient continues on methotrexate and has been started on Simpony, with moderate disease activity noted. 4. Diabetes Mellitus The diabetes management plan includes a hemoglobin A1c goal of less than 6.5, with medications including Januvia, metformin, glimepiride, and Jardiance. 5. Postoperative Hypothyroidism The patient is on levothyroxine 100 mcg daily, with a TSH goal of 0.5 to 2, and continues to follow up with endocrinology. 6. Chronic Kidney Disease The patient is advised to maintain hydration and avoid NSAIDs, with renal function monitoring showing stability. 7. Preventative Care Preventative measures include a mammogram due this month, a recent shingles vaccination, and a recommended pneumonia vaccination. Discussion Notes During the visit, we discussed the management of hypertension with lisinopril and hypercholesterolemia with simvastatin. Rheumatoid arthritis treatment includes methotrexate and Simpony, with moderate disease activity. Diabetes management involves a target A1c of less than 6.5, using Januvia, metformin, glimepiride, and Jardiance. The patient is advised to maintain hydration and avoid NSAIDs for chronic kidney disease. Preventative care includes a mammogram, shingles vaccination, and a recommended pneumonia vaccination. Patient Instructions - Continue taking lisinopril, simvastatin, and diabetes medications as prescribed. - Follow up with endocrinology for thyroid management. - Maintain hydration and avoid NSAIDs. - Schedule and complete a mammogram this month. - Consider receiving a pneumonia vaccination. Orders: Orders Complete Blood Count Auto Diff Today N18.31 - Chronic kidney disease, stage 3a Free T4 (Free Thyroxine) Today N18.31 - Chronic kidney disease, stage 3a Lipid Panel Today E78.00 - Pure hypercholesterolemia, unspecified, N18.31 - Chronic kidney disease, stage 3a Magnesium Today N18.31 - Chronic kidney disease, stage 3a Comprehensive Met. Panel Today N18.31 - Chronic kidney disease, stage 3a Thyroid Stimulating Hormone Today N18.31 - Chronic kidney disease, stage 3a Vitamin B12 and Folate Today N18.31 - Chronic kidney disease, stage 3a Vitamin D 25-OH Total Today N18.31 - Chronic kidney disease, stage 3a Hemoglobin A1c Today N18.31 - Chronic kidney disease, stage 3a Pneumococcal 20 Immunization Today Z23 - Encounter for immunization
--- OUTSIDE RECORDS SUMMARY | 2024-11-01 18:07 | XMS_ITS | Encounter Summary ---
Demographics Address [address] [place] [id number] Home Phone
== END 2024-11-01 17:23 | disposition home or self-care (01) ==
LOC: HO.HMCH 16:11
PROVIDERS: PCP Internal Medicine; Visit Provider Internal Medicine
DX: I12.9 Hypertensive chronic kidney disease with stage 1 through stage 4 chronic kidney disease, or unspecified chronic kidney disease (principal); E11.65 Type 2 diabetes mellitus with hyperglycemia; N18.31 Chronic kidney disease, stage 3a; M05.79 Rheumatoid arthritis with rheumatoid factor of multiple sites without organ or systems involvement; E78.00 Pure hypercholesterolemia, unspecified; E89.0 Postprocedural hypothyroidism; M85.852 Other specified disorders of bone density and structure, left thigh; Z86.39 Personal history of other endocrine, nutritional and metabolic disease; Z23 Encounter for immunization

== ENCOUNTER → 2024-11-01 16:11 | Outpatient (BNVA) | payer OTHER, SELFPAY | PROVIDERS: PCP Internal Medicine; Visit Provider Internal Medicine | DX: E11.22 Type 2 diabetes mellitus with diabetic chronic kidney disease (principal); I12.9 Hypertensive chronic kidney disease with stage 1 through stage 4 chronic kidney disease, or unspecified chronic kidney disease; E78.00 Pure hypercholesterolemia, unspecified; E11.65 Type 2 diabetes mellitus with hyperglycemia; E89.0 Postprocedural hypothyroidism; M85.852 Other specified disorders of bone density and structure, left thigh; M05.79 Rheumatoid arthritis with rheumatoid factor of multiple sites without organ or systems involvement; N18.31 Chronic kidney disease, stage 3a; M06.9 Rheumatoid arthritis, unspecified; Z23 Encounter for immunization; Z86.39 Personal history of other endocrine, nutritional and metabolic disease | CPT/HCPCS: 90471; 90677 ==

== ENCOUNTER 2024-11-11 07:35 | Outpatient (REF) | payer OTHER, SELFPAY ==
--- OUTSIDE RECORDS SUMMARY | 2024-06-22 05:30 | XMS_ITS ---
Author Organization [facility] Address [address] [place] [address] Care Team Providers Care Vegetable Thinner Name Role Phone Barbara Victor Primary Care Provider Unavailabl Sergio Zendejas Unavailable [phone] REASON FOR VISIT Seen Sooner Encounters Encounter Location Date Provider Diagnosis [address] [address] 06/22/2024 Sergio Malik Plan Of Treatment Next Appt Details Provider Name:Sergio Malik , 01/11/2025 08:45:00 AM, [address] [place] [address], [phone], Provider Name:Sergio Malik , 03/18/2025 08:45:00 AM, [address] [place] [address], [phone], Progress Notes * Joanna TES MDOB:1960 (64 yo F)Acc No.[id number]:06/22/2024 Progress Note Patient: Joanna WEBSTER Provider: Taye Malik DPM :1960 A ge:63 Y S ex:Female Date:06/22/2024 Address:[address] [place] [address] [facility] , [place], [place] Pcp:Lorenver Po Subjective: * Chief Complaints: * [...] 0 06/22/2024 Generated for Joao patterson/Erin/Laxmi on: 1 07:40 AM EDT
--- OUTSIDE RECORDS SUMMARY | 2024-11-11 07:40 | XMS_ITS | Clinical Summary ---
Author Organization [facility] Address [address] [id number] Care Team Providers Care Sales Correspondent Name Role Phone Anderson Sanchez Primary Care Provider [phone] Allergies No known active allergies Medications Diclofenac-Mis [...] Pap Smear Discontinued Zoster (Zostavax) Discontinued Insurance [facility] FEE FOR SERVICE PPO * Guarantor: [employer] Account Type Relation to Patient Date of Phone Billing Address [employer] [address] [place] [address] [employer] Care Teams Sales Correspondent Relationship Specialty Start Date End Date Anderson Sanchez [address] [address] PCP - General Rheumatology 06/10/12
--- OUTSIDE RECORDS SUMMARY | 2024-11-11 07:40 | XMS_ITS | Encounter Summary ---
Author Organization [facility] Address [address] [place] [address] Care Team Providers Care Chlorine Plant Operator Name Role Phone ValenteBarbara Katelynn Primary Care Provider [phone] Reason for Visit * Reason Onset Date Comments Med Refill 03/30/2021 Encounter Details Date Type Department Care Team (Late st Contact Info) Description 03/30/2021 Telephone [facility] [address] [place] [phone] Telephone Intake, Staff Med Refill Social History [...] request PCP information rather they requested [facility] endo contact info and did not give a reason why. Since endo does not prescribe the med, nurse requested that pt call [employer] to resolve issue. * Telephone Encounter - [...] Pt of Dr. Franklin Almonte calling from [employer] This is her second attempt at trying to get a renewal for pt (Onglyza 5mg) Please call or fax to: Please: use reference #[id number] documented in this encounter Plan of Treatment Not on file documented as of this encounter Visit Diagnoses Not on filedocumented in this encounter Care Teams Chlorine Plant Operator Relationship Specialty Start Date End Date Barbara Victor [address] [place] [address] dr Supa [place], [place] [address] PCP - General Internal Medicine 06/24/17 documented as of this encounter
--- OUTSIDE RECORDS SUMMARY | 2024-11-11 07:40 | XMS_ITS | Clinical Summary ---
Author Organization [facility] Address [address] [place] [address] Care Team Providers Care Information Specialist Name Role Phone ValenteBrittanieernesto Pace Primary Care Provider [phone] Allergies Active Allergy Reactions Criticality Noted Date Comments Ciprofloxacin Rash 09/03/2018 Medications folic acid (FOLVITE) 1 mg tablet Take 1 mg by mouth daily. Active ONETOUCH DELICA LANCETS MISC TEST 2 TIMES / DAY BEFORE BREAKFAST AND AFTER DINNER Active OneTouch Verio test stripsIndications :Type 2 diabetes mellitus without complication, without long-term current use of insulin 1 strip daily. 100 strip 3 7 [...] specimen 04/26. Nodes looked abnormal during surgery. 6/ nodes positive for PTC. RIGGINS 90 mCi [...] in February. 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 [...] this topic Procedures * Due to [place] [employer] law, this organization might not be sharing [...] Health Maintenance Results * Due to [place] [employer] law, this organization might not be sharing negative HIV tests. * (ABNORMAL) Microalbumin/Creatinine Urine Ratio, Random (01/24/2020 9:14 AM EST) Microalbumin, Urine 5.0 mg/dL 01/24/2020 11:04 AM EST [facility] Creatinine, Urine 23 15 - 278 mg/dL 01/24/2020 11:04 AM EST [facility] Microalb/Creat Ratio, Random Urine 217.4(H) <30.0 mcg/mgCr 01/24/2020 11:04 AM EST [facility] Comment: Microalbumin Reference Range: Normal <30 mcg/mg Creatinine Microalbuminuria 30-300 mcg/mg Creatinine Clinical Albuminuria >300 mcg/mg Creatinine Reference: ADA Guideline. Diabetes Care. 2004;27 (suppl 1) Urine Voided urine specimen / Unknown Non-Blood Collection / Unknown 01/24/2020 9:14 AM EST 01/24/2020 10:30 AM EST us Meaghan Ziegler MD LAB URINE ORDERABLES Final Res ult [facility] [address] [place] [address], * (ABNORMAL) Basic Metabolic Panel, Outside Lab (08/30/2019) Potassium 4.9 Creatinine 1.45(H) mg/dL eGFR Non- 37(L) Blood Structure of peripheral vein / Unknown 08/30/2019 us Unknown Provider LAB BLOOD ORDERABLES Final R esult * (ABNORMAL) Hemoglobin A1c (05/28/2017 3:55 PM EDT) Hemoglobin A1C 7.6(H) <5.7 % of total Hgb 05/28/2017 10:49 PM EDT [facility] Comment: For someone without known diabetes, a [...] (MG/DL) 171 (calc) 05/28/2017 10:49 PM EDT [facility] eAG (MMOL/L) 9.5 (calc) 05/28/2017 10:49 PM EDT [facility] Blood specimen (specimen) Structure of peripheral vein / Unknown Venipuncture / Unknown 05/28/2017 3:55 PM EDT 05/28/2017 4:30 PM EDT Narrative [facility] 05/28/2017 10:49 PM EDT [facility] Received Date:[id number] Jose Manuel Bell MD LAB BLOOD ORDERABLES Final Re sult [facility]NE[facility] [address], [place] [address], [place] [phone] [facility] [address], [place] [address], [place] [phone] * DIABETES EYE EXAM (07/31/2016 9:16 AM EDT) Eye Exam [id number] [facility] MANUAL RESULTS 07/31/2016 9:16 AM EDT us Benita Napier MD HEALTH MAINTENANCE Final Resul t Performing Organization Address City/[facility]/ZIP Co de Phone Number [facility] MANUAL RESULTS * MAMMOGRAPHY (05/15/2016 12:00 AM EDT) Mammogram Benign/ there are scattered areas of fibroglandular density . No significant change from prior study 2 OUTSIDE LABORATORY Anatomical Region Laterality Modality Other 05/15/2016 us Historical Conversion Provider HEALTH MAINTENANC E Final Result * Pap w/HPV (06/17/2014 10:55 AM EDT) Path Procedure TPGAS (893255) 1 HPVHR(058245) 1 Edited by: [id number] - [address] [place] [place] [id number] - 1324 -SCRPT6 [facility] Specimen Labeled As: 1 CERVICAL/ENDOCERVI MAKAYLA CYTO MATERIAL - Edited by: [id number] - 1058 HUGHER1 [facility] Additional Test Information Specimens were tested for high risk HPV using the FDA approved Digene Hybrid Capture II kit, in the Diagnostic Molecular Oncology Lab at [facility]. This test can detect HPV high risk [...] abnormality. We endorse the recommendations of the [place] [employer] for Colposcopy and Cervical Pathology for [...] high complexity clinical laboratory testing. Edited by: [id number] - 1324 BW-SCRPT6 [facility] Diagnosis ThinPrep Pap Test Adequacy: Satisfactory for evaluation Interpretation: Negative for Intraepithelial Lesion or Malignancy Remarks/Recommenda tions: This is the result of a morphological screening test with an inherent possibility of a false negative interpretation. This Pap test was examined in accordance with the [facility] Cyt[facility] Laboratory written policy, which incorporates all CLIA mandates. Screening guidelines can be found in Am J Clin Pathol 2012;137:516-542. We endorse the practice guidelines developed by ASCCP and published in the Journal Lower Genital Tract Disease 17(5):S1-S27 (2013). This Pap test was examined by the ThinPrep Imaging System, [employer], [place], [place]. - High risk HPV DNA subtypes: NEGATIVE Edited by: [id number] - 1324 -SCRPT6 [id number] - 1142 FERRSAEED [facility] Gynecologic Clinical Data Specimen source:, THINPREP (CERVICAL AND ENDOCERVICAL) [facility] Gynecologic Clinical Data Gynecologic findings:, POST MENOPAUSAL [facility] Pathology Codes Client Order Code:, TPHGS3 [facility] Pathology Codes Bill Type:, 3RD LIBERTARIAN BILLING [facility] Completed Report [id number] HPV, HIGH RISK TYPES 1 [facility] Marker 1 TOR [facility] Marker 2 MD SHLOMO NEGATIVE [facility] Marker 3 NILM,NILM [facility] Marker 4 RIM,RECEIVED IN MOLECULAR [facility] Marker 5 JESSEERlCRISTY-ANDI [facility] Cc Results To COMPA Bishop STARCH DUMPER [id number] JOHNNY SIU [id number] [facility] Signature REPORT SIGNED: TOR LAURA 06/29/14 [facility] Sign Out Audit TOR LAURA [id number] FINAL [facility] [id number] [facility] Cytology / Unknown 5 10:55 AM EDT 06/20/2014 10:55 AM EDT us Juliet Napier MD LAB HISTORICAL RESULT S Final Result [facility] [address] [place] [address], * DEXA Bone Density (06/16/2014 1:02 PM [...] Hepatitis C Antibody NON-REACTI VE NON-REACT CRISTINA [facility] Signal To Cut-Off 0.06 <1.00 [facility] 03/03/2014 2:31 PM EST 03/03/2014 3:50 PM EST Jessi Garcia LAB BLOOD ORDERABLES Final Resul t [facility] from Last 3 Months or Most Recently Relevant to Health Maintenance [place] [address] [place] [address] [employer] Advance Directives Documents on File Type Date Recorded Patient Review Coordinator Expl anation Advance Directive 09/12/2014 12:00 AM [facility] dical Dec Making (Adv.Dir) Care Teams Information Specialist Relationship Specialty Start Date End Date Barbara Victor [address] [place] [address] dr Supa [place], [place] [address] PCP - General Internal Medicine 06/24/17
--- OUTSIDE RECORDS SUMMARY | 2024-11-11 07:40 | XMS_ITS | Encounter Summary ---
Author Organization [facility] Address [address] [place] [address] Care Team Providers Care Clay Pigeon Loader Name Role Phone Barbara Victor Primary Care Provider Encounter Details Date Type Department Care Team (Late st Contact Info) Description 03/25/2016 Orders Only [facility] [address] [address] 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 MD [address] [place] [address] Social History Tobacco Use Types Packs/Day Years [...] on filedocumented in this encounter Care Teams Clay Pigeon Loader Relationship Specialty Start Date End Date Barbara Victor [address] [place] [address] [place] [address] PCP - General Internal Medicine 06/24/17 documented as of this encounter
--- OUTSIDE RECORDS SUMMARY | 2024-11-11 07:40 | XMS_ITS | Patient Health Record ---
Author [facility] Address [address] [place] [address] Care Team Providers Care Software Validation Technician Name Role Phone Barbara Victor Primary Care Provider Sergio Montelongo Unavailable [phone] Allergies Allergen (clinical drug ingredient) Drug/Non Drug [...] Duration) Notes Start Date End Date Status Januvia Active Leflunomide Not-Taki ng Methotrexate Active Lisinopril 10 MG 1 tablet Orally Once a day; Duration: 30 day(s) Active amLODIPine Besylate Active Xeljanz 5 MG 1 tablet Orally Twice a day; Duration: 30 day(s) Not-Taking Jardiance 25 MG 1 tablet Orally Once a day Active Tradjenta 5 MG 1 tablet Orally Once a day Not-Taking Folic Acid 1 MG 1 tablet Orally Once a day; Duration: 30 day(s) Active Methotrexate Sodium 10 MG as directed Orally once a week Not-Taking Diclofenac-miSOPROStol 75-0.2 MG 1 tablet with food Orally Twice a day Active Leflunomide & Diclofenac Sod Not-Taking Levothyroxine Sodium 112 MCG 1 tablet in the morning on an empty stomach Orally Once a day; Duration: 30 day(s) Active Ciclopirox Olamine 0.77 % 1 application to affected area Externally to feet Twice a day; Duration: 30 days Not-Taking metFORMIN HCl 500 MG 1 tablet with a meal Orally four times a day Active Prednisone Temp last day 09/11/21 Not-Taking Simvastatin 10 MG 1 tablet in the evening Orally Once a day; Duration: 30 day(s) Active Terbinafine Not-Taki ng Glimepiride 2 MG 1 tablet with breakfast or the first main meal of the day Orally Once a day Active Zolpidem Tartrate 10 MG 1 tablet at bedtime as needed Orally Once a day PRN Active Vitamin D 1 tablet Orally Once a day Active Immunizations Vaccine Route Administration [...] Problem Acquired hammer toe of right foot (78997804918364 05) Other hammer toe(s) (acquired), right foot (M20.41) Active confirmed Problem Type 2 diabetes mellitus with peripheral angiopathy (947123738) Type 2 diabetes mellitus with diabetic peripheral angiopathy without gangrene (E11.51) Active confirmed Problem Acquired hammer toe of left foot (33444217997776 03) Other hammer toe(s) (acquired), left foot (M20.42) Active confirmed Vital Signs Blood pressure diastolic 65 mm Hg 10/29/2024 Height 5ft2.5in in 10/29/2024 Blood pressure systolic 128 mm Hg 10/29/2024 Weight 163 lbs 10/29/2024 BMI 29.33 kg/m2 10/29/2024 Procedures Procedure Date Ordered Date Performed Result Body Sit e 28927-YWUVEEP NAIL, 6 OR MORE 11/25/2023 N/A 26221-NPKD SKIN LESIONS, OVER 4 11/25/2023 N/A 93485-RVFRKMD NAIL, 6 OR MORE 01/30/2024 N/A 14378-QQFV SKIN LESIONS, OVER 4 01/30/2024 N/A 77848-KMZGGMM NAIL, 6 OR MORE 04/02/2024 N/A 46027-OZBH SKIN LESIONS, OVER 4 04/02/2024 N/A 96495-TVKIYEX NAIL, 6 OR MORE 06/11/2024 N/A 04053-LEHE SKIN LESIONS, OVER 4 06/11/2024 N/A 35695-VGQDMXL NAIL, 6 OR MORE 08/20/2024 N/A 08005-LVFU SKIN LESIONS, OVER 4 08/20/2024 N/A 45273-SAMINVO NAIL, 6 OR MORE 10/29/2024 N/A 45593-DJBX SKIN LESIONS, OVER 4 10/29/2024 N/A Encounters Encounter Location Date Provider Diagnosis [address] [address] 11/25/2023 Sergiomalachi Malik Type 2 diabetes mellitus with diabetic peripheral angiopathy without gangrene E11.51 ; Tinea unguium B35.1 ; Pain in right toe(s) M79.674 and Pain in left toe(s) M79.[address] [address] 01/30/2024 Sergiomalachi Malik Type 2 diabetes mellitus with diabetic peripheral angiopathy without gangrene E11.51 ; Tinea unguium B35.1 ; Pain in right toe(s) M79.674 and Pain in left toe(s) M79.[address] [address] 04/02/2024 Sergiomalachi Malik Type 2 diabetes mellitus with diabetic peripheral angiopathy without gangrene E11.51 ; Tinea unguium B35.1 ; Pain in right toe(s) M79.674 ; Pain in left toe(s) M79.675 ; Other hammer toe(s) (acquired), right foot M20.41 and Other hammer toe(s) (acquired), left foot M20.[address] [address] 06/11/2024 Sergio Malik Type 2 diabetes mellitus with diabetic peripheral angiopathy without gangrene E11.51 ; Tinea unguium B35.1 ; Pain in right toe(s) M79.674 and Pain in left toe(s) M79.[address] [address] 08/20/2024 Sergio Malik Type 2 diabetes mellitus with diabetic peripheral angiopathy without gangrene E11.51 ; Tinea unguium B35.1 ; Pain in right toe(s) M79.674 and Pain in left toe(s) M79.[address] [address] 10/29/2024 Sergio Malik Type 2 diabetes mellitus with diabetic peripheral angiopathy without gangrene E11.51 ; Tinea unguium B35.1 ; Pain in right toe(s) M79.674 and Pain in left toe(s) M79.[address] [address] 11/25/2023 Sergio Helena Assessments Encounter Date Diagnosis [...] E11.51) 08/20/2024 Tinea unguium (ICD-10 - B35.1) 10/29/2024 Type 2 diabetes mellitus with diabetic peripheral angiopathy without gangrene (ICD-10 - E11.51) 10/29/2024 Tinea unguium (ICD-10 - B35.1) 08/20/2024 Pain in right toe(s) (ICD-10 - M79.674) 10/29/2024 Pain in right toe(s) (ICD-10 - M79.674) [...] Pain in left toe(s) (ICD-10 - M79.675) 10/29/2024 Pain in left toe(s) (ICD-10 - M79.675) 08/20/2024 Pain in left toe(s) (ICD-10 - M79.675) 04/02/2024 Other hammer toe(s) (acquired), right foot (ICD-10 - M20.41) Patient Educated with: DIABETIC FOOT CARE INSTRUCTIONS.p df (DIABETIC FOOT CARE INSTRUCTIONS.p df) 04/02/2024 Other hammer toe(s) (acquired), left foot (ICD-10 - M20.42) 11/25/2023 Other 01/30/2024 Other 04/02/2024 Other Plan Of Treatment Pending Test Test Name Order Date 26744-CSAZANM NAIL, 6 OR MORE 12/10/2019 87289-SPJHUCL NAIL, 6 OR MORE 02/29/2020 52677-JXGOJNG NAIL, 6 OR MORE 05/30/2020 76543-PBTIVBL NAIL, 6 OR MORE 08/29/2020 42547-CGKSKQX NAIL, 6 OR MORE 11/28/2020 93391-ZEQJQNW NAIL, 6 OR MORE 03/06/2021 91156-KKKAWHE NAIL, 6 OR MORE 06/08/2021 62707-XJZRREA NAIL, 6 OR MORE 09/11/2021 48816-OJKXJUT NAIL, 6 OR MORE 12/11/2021 32664-QHBCTCJ NAIL, 6 OR MORE 02/15/2022 87331-JOQAAGO NAIL, 6 OR MORE 05/28/2022 08438-AABWCPR NAIL, 6 OR MORE 08/16/2022 03458-FUKOJIM NAIL, 6 OR MORE 11/05/2022 75977-ECPTGDR NAIL, 6 OR MORE 01/07/2023 37716-OVHAOMM NAIL, 6 OR MORE 03/11/2023 14226-LIFDKCT NAIL, 6 OR MORE 05/13/2023 58094-GRPUURF NAIL, 6 OR MORE 07/15/2023 66659-CVMQBBV NAIL, 6 OR MORE 09/23/2023 62715-CPWGFBE NAIL, 6 OR MORE 11/25/2023 79031-NUUDGOE NAIL, 6 OR MORE 01/30/2024 73660-UKREFBH NAIL, 6 OR MORE 04/02/2024 77842-ZTOPFOJ NAIL, 6 OR MORE 06/11/2024 27855-DIXIRRH NAIL, 6 OR MORE 08/20/2024 98896-MEPPJGN NAIL, 6 OR MORE 10/29/2024 26427-QVPN SKIN LESIONS, OVER 4 10/30/19 25 08665-IGIM SKIN LESIONS, OVER 4 08/21/19 25 87670-XFAZ SKIN LESIONS, OVER 4 06/12/19 25 84935-WFHO SKIN LESIONS, OVER 4 04/02/19 25 60540-HMSS SKIN LESIONS, OVER 4 01/30/20 24 06060-FMUC SKIN LESIONS, OVER 4 11/25/19 99276-IFKW SKIN LESIONS, OVER 4 09/23/19 67173-FCGZ SKIN LESIONS, OVER 4 07/15/19 10868-EEJO SKIN LESIONS, OVER 4 05/13/19 24 40788-BLHR SKIN LESIONS, OVER 4 03/11/19 65750-XDBO SKIN LESIONS, OVER 4 01/08/20 66518-YQVZ SKIN LESIONS, OVER 4 11/06/19 45028-QHQS SKIN LESIONS, OVER 4 08/17/19 80722-GBTI SKIN LESIONS, OVER 4 05/29/19 95045-ODMX SKIN LESIONS, OVER 4 02/15/19 08927-HPUV SKIN LESIONS, OVER 4 12/12/19 22445-DNBH SKIN LESIONS, OVER 4 09/12/19 33488-XEHL SKIN LESIONS, OVER 4 06/09/19 05852-HBYF SKIN LESIONS, OVER 4 03/06/19 21464-OEWL SKIN LESIONS, OVER 4 11/29/19 89332-ZODK SKIN LESIONS, OVER 4 08/30/19 30189-XNLL SKIN LESIONS, OVER 4 05/31/19 17519-LRCM SKIN LESIONS, OVER 4 02/28/19 17258-ERCI SKIN LESIONS, OVER 4 12/10/19 Next Appt Details Provider Name:Sergio Malik , 01/11/2025 08:45:00 AM, [address] [place] [address], [phone], Provider Name:Sergio Malik , 03/18/2025 08:45:00 AM, [address] [place] [address], [phone], Insurance Providers Payer Name Payer Address Payer Phone Subscriber Number Group Number Insured Name Patient Relationship to Insured Coverage Start Date Coverage End Date [employer] [address] [address] [place] [address] [id number] Joanna Tse Self - patient is the insured Medical (General) History Medical History History ICD Code Rheumatoid Arthritis Cancer - Thyroid High blood pressure Rheumatic fever Chicken pox Bone implants/screws CAD type II diabetes Surgical History Surgery Date(Month/Year) Thyroid Surgery [facility]26[facility]11/09/21 [facility] 1984,1986 Right quad rupture repair 07/23/23 hysterectomy 06/09/2023
--- OUTSIDE RECORDS SUMMARY | 2024-11-11 07:41 | XMS_ITS | Encounter Summary ---
Author Organization [facility] Address [address] [place] [address] Care Team Providers Care Manager Medical Device Name Role Phone Barbara Victor Primary Care Provider [phone] Encounter Details Date Type Department Care Team (Late st Contact Info) Description 07/02/2016 Orders Only [facility] [address] [address] 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 MD [address] [place] [address] Social History Tobacco Use Types Packs/Day Years [...] on filedocumented in this encounter Care Teams Manager Medical Device Relationship Specialty Start Date End Date Barbara Victor [address] [place] [address] [place] [address] PCP - General Internal Medicine 06/24/17 documented as of this encounter
--- OUTSIDE RECORDS SUMMARY | 2024-11-11 07:41 | XMS_ITS | Encounter Summary ---
Author Organization [facility] Address [address] [place] [address] Care Team Providers Care Supervisor Pumping Name Role Phone Barbara Victor Primary Care Provider [phone] Encounter Details Date Type Department Care Team (Late st Contact Info) Description 09/24/2016 Orders Only [facility] [address] [address] 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 MD [address] [place] [address] Social History Tobacco Use Types Packs/Day Years [...] filedocumented in this encounter Care Teams Supervisor Pumping Relationship Specialty Start Date End Date Barbara Victor [address] [place] [address] [place] [address] PCP - General Internal Medicine 06/24/17 documented as of this encounter
[2024-11-11 07:49] LABS: MANUAL DIFF FLAG NO
[2024-11-11 08:28] LABS: Hematocrit 43.1 % (37.0-47.0); Hemoglobin 14.2 g/dl (12.0-16.0); Imm Gran Abs Auto 0.02 X10*3/uL (0.00-0.03); Imm Gran Pct Auto 0.4 % (0.0-0.4); Lymphocytes Absolute Auto 1.1 X10*3/uL (1.2-4.9); Mean Corpuscular HGB Conc 32.9 g/dl (31.0-35.0); Mean Corpuscular Hemoglobin 31.4 pg (27.0-33.0); Mean Corpuscular Volume 95.4 fL (80.0-98.0); NRBC Abs Auto 0.000 X10*3/uL (0.0-0.012); NRBC Pct Auto 0.0 /100WBC (0.0-0.2); Platelet Count 178 X10*3/uL (160-400); Red Blood Count 4.52 X10*6/uL (4.20-5.50); White Blood Count 4.8 X10*3/uL (4.8-10.8)
[2024-11-11 08:56] LABS: Alanine Aminotransferase 25 U/L (0-31); Albumin Level 4.4 g/dL (3.5-5.0); Alkaline Phosphatase 68 U/L (39-117); Anion Gap 12 (12-20); Aspartate Amino Transferase 22 U/L (5-31); Blood Urea Nitrogen 34 mg/dL (9-16); Calcium 9.1 mg/dL (8.4-10.2); Carbon Dioxide 21 mmol/L (22-29); Chloride 114 mmol/L (96-108); Cholesterol 170 mg/dL (<200); Estimated Glomerular Filt Rate 33; HDL Cholesterol 72 mg/dL (>40); Magnesium 1.9 mg/dL (1.6-2.6); Potassium 4.9 mmol/L (3.3-5.1); Sodium 142 mmol/L (135-145); Total Protein 6.8 g/dL (6.5-8.0); Triglycerides 63 mg/dL (<150)
[2024-11-11 09:13] LABS: Free T4 (Free Thyroxine) 1.24 ng/dL (0.71-1.85); Thyroid Stimulating Hormone 0.15 uIU/mL (0.32-4.0)
[2024-11-11 09:23] LABS: Folate 11.5 ng/mL (> or = 4.0); Vitamin B12 315 pg/mL (200-900)
== END 2024-11-11 07:36 | disposition home or self-care (01) ==
LOC: HO.LAB 07:35
PROVIDERS: Absent Provider Student in an Organized Health Care Education/Training Program; PCP Internal Medicine; Visit Provider Internal Medicine
DX: Z13.1 Encounter for screening for diabetes mellitus (principal); N18.31 Chronic kidney disease, stage 3a; E89.0 Postprocedural hypothyroidism; E78.00 Pure hypercholesterolemia, unspecified; Z85.850 Personal history of malignant neoplasm of thyroid
CPT/HCPCS: 36415; 80053; 80061; 82306; 82607; 82746; 83036; 83735; 84439; 84443; 85025

== ENCOUNTER 2025-01-21 09:20 | Outpatient (AMB) | payer OTHER, SELFPAY ==
[2025-01-21 09:34] VITALS: BP 138/72; PULSE 63; O2SAT 95
--- NOTE | 2025-01-21 09:34 | HO.NEPHOV_ITS ---
Vital Signs 01/21/25 09:34 Height 5 ft 2.5 in BP 138/72 Blood Pressure Location Lt brachial Position Sitting Pulse 63 Pulse Source Pulse Oximeter Pulse Oximetry (%) 95 Oxygen Delivery Method Room Air Intake Visit Reasons: FU Stock Dealer Required: No Accompanied by: Self / Same As Patient Allergies ciprofloxacin (Cipro) Allergy (Intermediate, Verified 01/21/25 09:34) rash amlodipine Adverse Reaction (Intermediate, Verified 01/21/25 09:34) swelling HPI Comments Details: Joanna was seen in follow up of care of for her CKD. She had seen a plastic fabricator in [facility] where she follows up with her Resource Program Teacher for her Rheumatoid Arthritis. She has long standing history of diabetes mellitus and hypertension with no H/O significant proteinuria in addition to her other medical issues including hypothyroidism (postoperative from thyroid cancer), hypercholesterolemia, osteoarthritis as well as primary hyperparathyroidism status post parathyroidectomy.She has no hypoglycemic episodes. She has H/O renal stones. She regularly takes NSAID's for her joint issues while she is on ACEI. She is on MTX as well as Jardiance. She denied any CAD, CVA, VENTURA, PAD or CHF. She denies any hematuria but has H/O renal stones. She tries to keep herself hydrated. She has no nausea, vomiting, diarrhea, SOB, PND, orthopnea , pedal edema or new skin rashes. [facility] Medical History Abdominal wall hernia Anterolisthesis of cervical spine Methotrexate, usp, current use History of radioactive iodine thyroid ablation History of hyperparathyroidism Postoperative hypothyroidism Vitamin D deficiency Thyroid cancer Type 2 diabetes mellitus with hyperglycemia Hypothyroid Obesity (BMI 30-39.9) Parotitis History of thyroid cancer Rheumatoid arthritis Hypercholesterolemia Hypertension Insomnia Surgical History History of hernia repair H/O knee surgery History of hysterectomy History of hysteroscopy History of thyroid surgery History of parathyroid surgery H/O wrist surgery History of tonsillectomy History of section Family History Father CAD (coronary artery disease) Mother Dementia CAD (coronary artery disease) Sister Breast cancer Depression Social History Housing: House Are you a primary healthcare consulting manager to a significant other at home: No Do you presently have visiting nurse or other home services: No Alcohol intake: current Alcohol intake frequency: holidays/special occasions only Patient Tobacco Use Status: Never used Tobacco Tobacco use type: Cigarette e-Cigarette/Vaping Use: Never Used Second Hand Smoke Exposure: No service: No Current occupational status: employed Current occupational exposures/hazards: No Cognitive needs: No Hearing needs: No Vision needs: Yes Female Reproductive History Menstrual Age of Menarche: 12 Review of Systems Const All systems reviewed & are unremarkable except as noted in HPI and below Physical Exam Vital Signs: Last Vital Signs Pulse 63 01/21/25 09:34 BP 138/72 01/21/25 09:34 Pulse Ox 95 01/21/25 09:34 Oxygen Delivery Method Room Air 01/21/25 09:34 Const General: comfortable and no acute distress Orientation/consciousness: patient oriented x3 HEENT Head: Yes normocephalic Mouth: Normal oral and palatal mucosa present Eyes EOM: EOMs intact bilaterally Neck Neck: Yes supple Resp Auscultation: clear to auscultation bilaterally Cardio Jugular venous distension: no JVD Rate: regular rate GI Palpation (GI): Soft to palpation Auscultation: normal bowel sounds General: Yes no CVA tenderness Back/Spine/Pelvis Back: no CVA tenderness Skin General skin exam: no rashes or lesions noted Neuro General: patient oriented x3 and moves all extremities Extrem General: Yes no pedal edema Results Reviewed Nephrology Results: Hgb, (12.0-16.0) 14.2 g/dl 11/11/24 WBC, (4.8-10.8) 4.8 X10*3/uL 11/11/24 Plt Count, (160-400) 178 X10*3/uL 11/11/24 Sodium, (135-145) 142 mmol/L 11/11/24 Potassium, (3.3-5.1) 4.9 mmol/L 11/11/24 Chloride, (96-108) 114 mmol/L H 11/11/24 Carbon Dioxide, (22-29) 21 mmol/L L 11/11/24 BUN, (9-16) 34 mg/dL H 11/11/24 Creatinine, (0.5-1.4) 1.56 mg/dL H 11/11/24 Calcium, (8.4-10.2) 9.1 mg/dL Δ 11/11/24 Assessment & Plan Assessment & Plan (1) Hypertension: Code(s): I10 - Essential (primary) hypertension Category: Medical Qualifiers: Hypertension type: essential hypertension Qualified Code(s): I10 - Essential (primary) hypertension (2) CKD (chronic kidney disease) stage 3, GFR 30-59 ml/min: Code(s): N18.30 - Chronic kidney disease, stage 3 unspecified Category: Medical Qualifiers: Chronic kidney disease stage 3 subtype: stage 3a (GFR 45-59) Qualified Code(s): N18.31 - Chronic kidney disease, stage 3a Plan Joanna has CKD 3 likely from vascular disease on a backdrop of DM and HTN. She has RA and is on MTX as well as NSAID's. She takes ACEI as well as Jardiance. She has no H/O proteinuria. Her BP has been at goal @ home. She needs to maintain good hydration. She is on Jardiance & ACEI. We should consider switching her from glimeperide to glipizide. She does not need a renal biopsy which I plan to continue to discuss further with her with time. I did not make any other medication changes today. Labs ordered for F/U Orders: Orders Hemoglobin A1c Today I10 - Essential (primary) hypertension, N18.31 - Chronic kidney disease, stage 3a Vitamin D 25-OH Total Today I10 - Essential (primary) hypertension, N18.31 - Chronic kidney disease, stage 3a Calcium Today I10 - Essential (primary) hypertension, N18.31 - Chronic kidney disease, stage 3a Protein Creatinine Ratio, Ur Today I10 - Essential (primary) hypertension, N18.31 - Chronic kidney disease, stage 3a Parathyroid Hormone Intact Today I10 - Essential (primary) hypertension, N18.31 - Chronic kidney disease, stage 3a Phosphorus Today I10 - Essential (primary) hypertension, N18.31 - Chronic kidney disease, stage 3a Complete Blood Count Auto Diff Today I10 - Essential (primary) hypertension, N18.31 - Chronic kidney disease, stage 3a Creatinine Today I10 - Essential (primary) hypertension, N18.31 - Chronic kidney disease, stage 3a Blood Urea Nitrogen Today I10 - Essential (primary) hypertension, N18.31 - Chronic kidney disease, stage 3a Electrolytes Today I10 - Essential (primary) hypertension, N18.31 - Chronic kidney disease, stage 3a Coding Level of Care Code Est Pt Level 4 (10572) Diagnoses Essential hypertension I10 Hypertension type: essential hypertension Stage 3a chronic kidney disease N18.31 Chronic kidney disease stage 3 subtype: stage 3a (GFR 45-59)
== END 2025-01-21 09:57 | disposition home or self-care (01) ==
LOC: HO.HKA 09:20
PROVIDERS: PCP Internal Medicine; Visit Provider Internal Medicine Nephrology
DX: I10 Essential (primary) hypertension (principal); N18.31 Chronic kidney disease, stage 3a
CPT/HCPCS: 99214